=== PATIENT | female | born 1955 | race Caucasian/White ===

== ENCOUNTER → 2017-10-04 09:52 | Outpatient (CLI) | payer MEDICARE, SELFPAY | PROVIDERS: PCP Family Medicine; Visit Provider Family Medicine | DX: R00.0 Tachycardia, unspecified (principal) | CPT/HCPCS: 93005 ==

== ENCOUNTER 2017-12-27 15:56 | Inpatient (IN) ==
--- NOTE | 2017-12-27 16:10 | Emergency Department Note ---
ED Disposition Clinical Impression: Cellulitis of left thigh, Abscess of left thigh Disposition: Admitted as Observation Condition on Discharge: Fair - Critical Care Critical Care Time: No Attestation: On , the high probability of a clinically significant, sudden or life threatening deterioration of the following system(s) required my full and direct attention, intervention and personal management. The time I documented below is in addition to time spent performing reported procedures but includes the following listed in this critical care notation. Medical Decision Making - Mark Inquiry Pt receiving controlled substance: No Vital Signs: 12/27/17 16:00 12/27/17 16:53 12/27/17 17:16 Temperature 98.3 F 100.2 F H Temperature Source Oral Oral Pulse Rate [Right Brachial] 83 78 79 Respiratory Rate 18 18 Blood Pressure [Right Arm] 136/85 119/61 132/79 Blood Pressure Mean [Right Arm] 102 80 96 Blood Pressure Source [Right Arm] Automatic Cuff Automatic Cuff Automatic Cuff Blood Pressure Position [Right Arm] Sitting Supine Sitting 02 Sat by Pulse Oximetry 99 99 100 Oxygen Delivery Method Room Air Room Air Room Air - Lab Data Lab Results 12/27/17 16:30: WBC 20.4 H*, RBC 4.04 L, Hgb 11.3 L, Hct 35.2 L, MCV 87.2, MCH 27.9, MCHC 32.0, RDW 14.7, Plt Count 306, MPV 7.5, Neut % (Auto) 79.5, Lymph % (Auto) 13.7, [place] % (Auto) 5.3, Eos % (Auto) 1.3, Baso % (Auto) 0.3, Neut # (Auto) 16.2 H, Lymph # (Auto) 2.8, [place] # (Auto) 1.1 H, Eos # (Auto) 0.3, Baso # (Auto) 0.1, Total Counted 100, Neutrophils % (Manual) 79 H, Lymphocytes % (Manual) 14, Monocytes % (Manual) 6, Eosinophils % (Manual) 1, Platelet Estimate Normal, RBC Morphology Normal 12/27/17 16:30: Sodium 129 L, Potassium 4.0, Chloride 91 L, Carbon Dioxide 29, Anion Gap 13.0, BUN 16, Creatinine 1.35 H, Estimated Creat Clear 35, Estimated GFR 40 L, Est GFR ( Amer) 48 L, Glucose 248 H, Calcium 9.2 12/27/17 16:30: Lactate 2.2 H Result diagrams: 12/27/17 16:30 12/27/17 16:30 Orders (Tests/Meds): ED MEDICATIONS Generic Name Dose Route Start Last Admin Trade Name Freq PRN Reason Stop Dose Admin Vancomycin HCl 2,000 mg/ 500 mls @ 250 mls/hr 12/27/17 19:45 Sodium Chloride IV 12/27/17 21:44 ONCE ONE Vancomycin HCl 1,500 mg/ 250 mls @ 125 mls/hr 12/28/17 08:00 Sodium Chloride IV 01/11/18 07:59 Q12H FARHAN Discontinued Medications Generic Name Dose Route Start Last Admin Trade Name Freq PRN Reason Stop Dose Admin Acetaminophen 650 mg 12/27/17 17:17 12/27/17 17:17 Acetaminophen 325mg Tab PO 12/27/17 17:18 650 mg ONCE ONE Administration Vancomycin HCl 1,500 mg/ 250 mls @ 125 mls/hr 12/27/17 17:30 Sodium Chloride IV 01/10/18 17:29 Q12H FARHAN Miscellaneous 1 each 12/27/17 16:30 12/27/17 19:37 Vancomycin Consult Request NOTAPPLIC 12/27/17 16:31 1 each CONSULT PHARMACY ONE Administration Vancomycin HCl 2,000 mg 12/27/17 17:25 Vancomycin 1000mg Vial IV 12/27/17 17:26 ONCE ONE Protocol ORDERS Category Date Time Status Blood Culture Stat Micro 12/27/17 16:30 Received - Physician Consults Physician Consulted: Diana Time: 16:25 Reason -: Admission Comment/Response: Agrees to admit the patient to the hospital. We discussed the patient's clinical information, including history, exam, laboratory and radiology results and ED course. Per hospital procedure, I will write temporary bridge inpatient orders on the patient. Specific orders requested by the a dmitting physician: Vancomycin, surgical consult Additional Consult: Angel Time: 16:25 Reason -: Surgical Eval/Care Comment/Response: He will contact the operating room team and call back to determine whether he will perform surgery tonight or tomorrow. Patient is on Xarelto. He prefers to do surgery at 730 tomorrow morning, with 1 dose of Xarelto held. Medical Decision Narrative: Reviewed previous record. Right labial abscess in October of last year. Cultures grew MRSA. General Adult HPI - General Stated complaint: Cyst in need of lancing Time Seen by Provider: 12/27/17 16:09 - History of Present Illness HPI narrative: 3-day history of infection proximal medial left thigh. High fevers last night with rigors and delirium. Treated with Tylenol. She was out of town and did not want to go to a hospital in [place], so waited until she arrived back home here. She is diabetic. Prior history of a right labial abscess a year ago treated at this hospital. Surgery by Dr. Gonzalez. Last ate yesterday. - Related Data Home Medications Medication Instructions Recorded Confirmed Carvedilol [Carvedilol 25mg Tab] 25 mg PO DAILY 12/27/17 12/27/17 Fluticasone/Salmeterol 50 - 250 mcg IH BID 12/27/17 12/27/17 [Fluticasone/Salmeterol 250/50mcg diskus] Levothyroxine Sodium 200 mcg PO DAILY 12/27/17 12/27/17 [Levothyroxine 200mcg (0.2mg) Tab] Lisinopril [Lisinopril 40mg Tablet] 40 mg PO DAILY 12/27/17 12/27/17 Metformin HCl 1,000 mg PO BID 12/27/17 12/27/17 Montelukast Sodium [Montelukast 10 mg PO HS 12/27/17 12/27/17 10mg Tab] Rivaroxaban [Xarelto 20mg Tablet] 20 mg PO DAILY 12/27/17 12/27/17 Rosuvastatin Calcium 10 mg PO DAILY 12/27/17 12/27/17 Sertraline HCl [Zoloft 50mg tablet] 50 mg PO DAILY 12/27/17 12/27/17 dilTIAZem HCl [Diltiazem 360mg 360 mg PO DAILY 12/27/17 12/27/17 24Hr ER Cap] hydroCHLOROthiazide [HCTZ 25mg 12.5 mg PO DAILY 12/27/17 12/27/17 tab] Allergies Allergy/AdvReac Type Severity Reaction Status Date / Time naproxen [From ALEVE] Allergy Intermediate S-SWELLS-OR Verified 12/27/17 16:12 AL/THROAT oxytetracycline Allergy Intermediate Verified 11/09/18 16:12 [From TERRAMYCIN] tetracycline [TETRACYCLINE] Allergy Intermediate NA-SEDATION Verified 12/27/17 16:12 [facility] History I have reviewed the patient's past medical history: Yes ROS Obtained: Yes Systems reviewed as appropriate & no additional complaints - Constitutional Constitutional: Reports chills, Reports fever(s) - Integumentary/Breasts Skin/Breast: Reports as per HPI Physical Exam - General General appearance: alert, in no apparent distress - Head Head exam: atraumatic, normocephalic - Eye Eye exam: Present: normal appearance, PERRL, EOMI - ENT ENT exam: Present: mucous membranes moist - Neck Neck exam: Present: normal inspection, trachea midline - Chest Chest inspection: Present: normal inspection, symmetric chest wall rise - Respiratory Respiratory exam: Present: normal lung sounds bilaterally. Absent: respiratory distress - Cardiovascular Cardiovascular exam: Present: regular rate, normal rhythm - Abdominal Exam Abdominal exam: Present: soft. Absent: distention - Expanded Lower Extremity Exam Left Comment: Large area of induration, erythema, tenderness, heat approximately the size of my hand proximal medial left thigh. Central area of fluctuance approximately 4- 5 cm length by 2 cm width. Very tender. No exfoliation or drainage. Distal neurovascular status intact. Cellulitis and abscess do not extend onto the labia. - Neurological Exam Neurological exam: Present: alert, oriented X3. Absent: motor sensory deficit - Psychiatric Psychiatric exam: Present: normal affect, normal mood - Skin Skin exam: Present: warm, dry
[2017-12-27 16:44] LABS: Basophils # 0.1 K/mm3 (0-0.2); Basophils % 0.3 % (0.1-2.0); Eosinophils # 0.3 K/mm3 (0.0-0.4); Eosinophils % 1.3 % (0.1-12.0); Hematocrit 35.2 % (37.0-47.0); Hemoglobin 11.3 g/dL (12.2-16.2); Lymphocytes # 2.8 K/mm3 (0.7-4.5); Lymphocytes % 13.7 % (10-50); Mean Corpuscular Hemoglobin 27.9 pg (27.0-31.2); Mean Corpuscular Volume 87.2 fl (81-99); Mean Platelet Volume 7.5 fl (7.4-10.4); Monocytes # 1.1 K/mm3 (0.1-1.0); Monocytes % 5.3 % (1.7-9.3); Neutrophils # 16.2 K/mm3 (1.8-7.8); Neutrophils % 79.5 % (37.0-80.0); Platelet Count 306 K/mm3 (142-424); Red Blood Count 4.04 M/mm3 (4.20-5.40); Red Cell Distribution Width 14.7 % (11.5-17.5); White Blood Count 20.4 K/mm3 (4.8-10.8)
[2017-12-27 16:55] LABS: Calcium 9.2 mg/dL (8.5-10.1)
[2017-12-27 17:59] LABS: Eosinophils % 1 % (0-3); Lymphocytes % 14 % (10-50); Monocytes % 6 % (2-9); Neutrophils % 79 % (42-76); RBC Morphology Normal; Total Cells Counted 100
--- NOTE | 2017-12-27 18:00 | Progress Note ---
Internal Medicine - PN: Subj *Date: 12/27/17 *Time: 17:52 Interval history: Patient with presented to [facility] ER today with a 2 day h/o left proximal leg swelling and tenderness. She states this is similar to a previous episode she had one year ago when she had an MRSA abscess that required surgical I&D. Exam Vital signs and Labs for Last 24 Hours: Temp Pulse Resp BP Pulse Ox 100.2 F H 79 18 132/79 100 12/27/17 17:16 12/27/17 17:16 12/27/17 17:16 12/27/17 17:16 12/27/17 17:16 Laboratory Results - last 24 hr 12/27/17 16:30: WBC 20.4 H*, RBC 4.04 L, Hgb 11.3 L, Hct 35.2 L, MCV 87.2, MCH 27.9, MCHC 32.0, RDW 14.7, Plt Count 306, MPV 7.5, Neut % (Auto) 79.5, Lymph % (Auto) 13.7, [place] % (Auto) 5.3, Eos % (Auto) 1.3, Baso % (Auto) 0.3, Neut # (Auto) 16.2 H, Lymph # (Auto) 2.8, [place] # (Auto) 1.1 H, Eos # (Auto) 0.3, Baso # (Auto) 0.1 12/27/17 16:30: Sodium 129 L, Potassium 4.0, Chloride 91 L, Carbon Dioxide 29, Anion Gap 13.0, BUN 16, Creatinine 1.35 H, Estimated Creat Clear 35, Estimated GFR 40 L, Est GFR ( Amer) 48 L, Glucose 248 H, Calcium 9.2 12/27/17 16:30: Lactate 2.2 H I & O for Last 24 hours: Intake & Output 12/25/17 12/26/17 12/27/17 12/28/17 11:59 11:59 11:59 11:59 Weight 230 lb - Constitutional no acute distress (conversant) - *Routine HEENT Exam Head: Present: normocephalic Eye: Present: EOMI, PERRL ENT: Present: mucous membranes moist - *Routine Skin Exam Comments: Fairly large, erythematous, indurated area of skin on the left proximal thigh wi th some central fluctuance Assessment and Plan (1) Abscess of left thigh Current visit: Yes Status: Acute Category: Medical Code(s): L02.416 - Cutaneous abscess of left lower limb (2) Cellulitis of left thigh Current visit: Yes Status: Acute Category: Medical Code(s): L03.116 - Cellulitis of left lower limb (3) Personal history of MRSA (methicillin resistant Staphylococcus aureus) Current visit: Yes Status: Acute Category: Medical Code(s): Z86.14 - Personal history of Methicillin resistant Staphylococcus aureus infection (4) DM2 (diabetes mellitus, type 2) Current visit: Yes Status: Acute Category: Medical Code(s): E11.9 - Type 2 diabetes mellitus without complications (5) HTN (hypertension) Current visit: Yes Status: Acute Category: Medical Code(s): I10 - Essenti al (primary) hypertension (6) Hyperlipidemia Current visit: Yes Status: Acute Category: Medical Code(s): E78.5 - Hyperlipidemia, unspecified (7) Hypothyroid Current visit: Yes Status: Acute Category: Medical Code(s): E03.9 - Hypothyroidism, unspecified (8) Depression Current visit: Yes Status: Acute Category: Medical Code(s): F32.9 - Major depressive disorder, single episode, unspecified (9) COPD (chronic obstructive pulmonary disease) Current visit: Yes Status: Acute Category: Medical Code(s): J44.9 - Chronic obstructive pulmonary disease, unspecified (10) Atrial fibrillation Current visit: Yes Status: Acute Category: Medical Code(s): I48.91 - Unspecified atrial fibrillation (11) CHF (congestive heart failure) Current visit: Yes Status: Acute Category: Medical Code(s): I50.9 - Heart failure, unspecified (12) Allergic rhinitis Current visit: Yes Status: Acute Category: Medical Code(s): J30.9 - Allergic rhinitis, unspecified (13) Morbid obesity Current visit: Yes Status: Acute Category: Medical Code(s): E66.01 - Morbid (severe) obesity due to excess calories (14) BMI 40.0-44.9, adult Current visit: Yes Status: Acute Category: Medical Code(s): Z68.41 - Body mass index (BMI) 40.0-44.9, adult (15) Leucocytosis Current visit: Yes Status: Acute Category: Medical Code(s): D72.829 - Elevated white blood cell count, unspecified - Assessment and plan all Dx Assessment and Plan for all problems:: General surgery consulted while patient was in the ER. IV Vancomycin ordered, plan I&D in the AM, hold Xarelto.
--- NOTE | 2017-12-27 19:19 | History & Physical Report ---
*Admission Date: 12/27/17 <Latosha Huynh 12/27/17 19:36> *Chief complaint: Left upper leg pain and redness <Latosha Huynh 12/27/17 19:36> *History of present illness: Ms. Dunn is a 62yo female who presented to [facility] ER today with a 3 day hx of redness, swelling, and tenderness in the proximal leg. She states this area started as a small red spot and got progressively worse. She developed fever, chills, and nausea yesterday. She states this is similar to a previous episode she had one year ago when she had an MRSA abscess that required surgical I&D. She was admitted for IV abx and a surgical consult. <Latosha Huynh 12/27/17 19:36> [facility] History Medical History: Reports:: Asthma, Atrial Fibrillation, Congestive Heart Failure, Chronic Obstructive Pulmonary Disease (COPD), Depression, Diabetes Caitlyn itus Type 2, Hyperlipidemia, Hypertension, MRSA Denies:: Cancer, Diabetes Mellitus Type 1 <Latosha Huynh 12/27/17 19:36> Other Medical History: Reports: Arthritis, Hypothyroidism <Latosha Huynh 12/27/17 19:36> Comment: IBS <Latosha Huynh 12/27/17 19:36> Other Surgeries: Yes: Cardiac Catheterization, Cholecystectomy, Tubal Ligation <Latosha Huynh 12/27/17 19:36> Amputation: No <Latosha Huynh 12/27/17 19:36> Fractures: No <Latosha Huynh 12/27/17 19:36> Comment: right ovarian cyst removed <Latosha Huynh 12/27/17 19:36> - *Social History Educational Level: Attended College <Latosha Huynh 12/27/17 19:36> Alcohol Intake: never <Latosha Huynh 12/27/17 19:36> Occupational Status: retired, disabled <Latosha Huynh 12/27/17 19:36> Housing: house <Latosha Huynh 12/27/17 19:36> Household Members: family <Latosha Huynh 12/27/17 19:36> - Psychiatric History Expresses thoughts of harming self/others: None <Latosha Huynh 12/27/17 19:36> Suicide Plan Description: No Plan <Latosha Huynh 12/27/17 19:36> *Family Hx:: Cancer, Coronary Artery Disease, Diabetes, Hypertension, Stroke <Latosha Huynh 12/27/17 19:36> Review of Systems - Constitutional Reports fever(s), Reports malaise, Reports weakness <Latosha Huynh 12/27/17 19:36> - Eyes Denies blurry vision, Denies double vision <Latosha Huynh 12/27/17 19:36> - ENT Reports nasal congestion, Reports sore throat <Latosha Huynh 12/27/17 19:36> - *Cardiovascular Denies chest pain, Denies rapid, pounding, or irregular heartbeat <Latosha Huynh 12/27/17 19:36> - *Respiratory Reports cough, Reports shortness of breath <Latosha Huynh 12/27/17 19:36> - *Gastrointestinal Reports loose stools, Reports nausea, Reports vomiting, Denies abdominal pain <Latosha Huynh 12/27/17 19:36> - *Genitourinary Denies difficulty urinating, Denies painful urination <Latosha Huynh 12/27/17 19:36> - *Musculoskeletal Reports joint pain (left leg), Denies back pain <Latosha Huynh 12/27/17 19:36> - *Neurologic Reports headache(s), Reports dizziness, Reports weakness <Latosha Huynh 12/27/17 19:36> Meds Home Medications Medication Instructions Recorded Confirmed Type Carvedilol [Carvedilol 25mg Tab] 25 mg PO BID 12/27/17 12/28/17 History Fluticasone/Salmeterol 50 - 250 mcg IH BID 12/27/17 12/27/17 History [Fluticasone/Salmeterol 250/50mcg diskus] Levothyroxine Sodium 200 mcg PO DAILY 12/27/17 12/27/17 History [Levothyroxine 200mcg (0.2mg) Tab] Lisinopril [Lisinopril 40mg Tablet] 40 mg PO DAILY 12/27/17 12/27/17 History Metformin HCl 1,000 mg PO BID 12/27/17 12/27/17 History Montelukast Sodium [Montelukast 10 mg PO HS 12/27/17 12/27/17 History 10mg Tab] Rivaroxaban [Xarelto 20mg Tablet] 20 mg PO DAILY 12/27/17 12/27/17 History Rosuvastatin Calcium 10 mg PO DAILY 12/27/17 12/27/17 History Sertraline HCl [Zoloft 50mg tablet] 50 mg PO DAILY 12/27/17 12/27/17 History dilTIAZem HCl [Diltiazem 360mg 360 mg PO DAILY 12/27/17 12/27/17 History 24Hr ER Cap] hydroCHLOROthiazide [HCTZ 25mg 12.5 mg PO DAILY 12/27/17 12/27/17 History tab] <Marciano Ortiz - 12/28/17 12:18> Allergies Allergy/AdvReac Type Severity Reaction Status Date / Time naproxen [From ALEVE] Allergy Intermediate S-SWELLS-OR Verified 12/27/17 16:12 AL/THROAT oxytetracycline Allergy Intermediate Verified 12/27/17 16:12 [From TERRAMYCIN] tetracycline [TETRACYCLINE] Allergy Intermediate NA-SEDATION Verified 12/27/17 16:12 <Marciano Ortiz - 12/28/17 12:18> Exam Vital signs and Labs for Last 24 Hours: Temp Pulse Resp BP Pulse Ox 98.9 F 90 18 100/57 L 92 L 12/28/17 12:09 12/28/17 12:09 12/28/17 12:09 12/28/17 12:09 12/28/17 12:09 Laboratory Results - last 24 hr 12/27/17 16:30: WBC 20.4 H*, RBC 4.04 L, Hgb 11.3 L, Hct 35.2 L, MCV 87.2, MCH 27.9, MCHC 32.0, RDW 14.7, Plt Count 306, MPV 7.5, Neut % (Auto) 79.5, Lymph % (Auto) 13.7, [place] % (Auto) 5.3, Eos % (Auto) 1.3, Baso % (Auto) 0.3, Neut # (Auto) 16.2 H, Lymph # (Auto) 2.8, [place] # (Auto) 1.1 H, Eos # (Auto) 0.3, Baso # (Auto) 0.1, Total Counted 100, Neutrophils % (Manual) 79 H, Lymphocytes % (Manual) 14, Monocytes % (Manual) 6, Eosinophils % (Manual) 1, Platelet Estimate Normal, RBC Morphology Normal 12/27/17 16:30: Sodium 129 L, Potassium 4.0, Chloride 91 L, Carbon Dioxide 29, Anion Gap 13.0, BUN 16, Creatinine 1.35 H, Estimated Creat Clear 35, Estimated GFR 40 L, Est GFR ( Amer) 48 L, Glucose 248 H, Calcium 9.2 12/27/17 16:30: Lactate 2.2 H 12/27/17 20:40: Lactate 1.3 12/27/17 22:07: POC Glucose 237 H 12/28/17 02:30: POC Glucose 272 H 12/28/17 07:00: Sodium 129 L, Potassium 3.5, Chloride 93 L, Carbon Dioxide 27, Anion Gap 12.5, BUN 14, Creatinine 1.14 H, Estimated Creat Clear 41, Estimated GFR 48 L, Est GFR ( Amer) 59 D, Glucose 253 H, Calcium 8.2 L D 12/28/17 08:00: POC Glucose 268 H 12/28/17 10:58: POC Glucose 378 H* <Marciano Ortiz - 12/28/17 12:18> Temp Pulse Resp BP Pulse Ox 100.0 F H 80 18 107/36 L 99 12/27/17 18:54 12/27/17 18:54 12/27/17 18:54 12/27/17 18:54 12/27/17 18:54 Laboratory Results - last 24 hr 12/27/17 16:30: WBC 20.4 H*, RBC 4.04 L, Hgb 11.3 L, Hct 35.2 L, MCV 87.2, MCH 27.9, MCHC 32.0, RDW 14.7, Plt Count 306, MPV 7.5, Neut % (Auto) 79.5, Lymph % (Auto) 13.7, [place] % (Auto) 5.3, Eos % (Auto) 1.3, Baso % (Auto) 0.3, Neut # (Auto) 16.2 H, Lymph # (Auto) 2.8, [place] # (Auto) 1.1 H, Eos # (Auto) 0.3, Baso # (Auto) 0.1, Total Counted 100, Neutrophils % (Manual) 79 H, Lymphocytes % (Manual) 14, Monocytes % (Manual) 6, Eosinophils % (Manual) 1, Platelet Estimate Normal, RBC Morphology Normal 12/27/17 16:30: Sodium 129 L, Potassium 4.0, Chloride 91 L, Carbon Dioxide 29, Anion Gap 13.0, BUN 16, Creatinine 1.35 H, Estimated Creat Clear 35, Estimated GFR 40 L, Est GFR ( Amer) 48 L, Glucose 248 H, Calcium 9.2 12/27/17 16:30: Lactate 2.2 H <Latosha Huynh - 12/27/17 19:36> I & O for Last 24 hours: Intake & Output 12/26/17 12/27/17 12/28/17 12/29/17 11:59 11:59 11:59 11:59 Intake Total 200 / 200 Balance 200 / 200 Weight 237 lb 6 oz <Tabor,Marciano - 12/28/17 12:18> Intake & Output 12/25/17 12/26/17 12/27/17 12/28/17 11:59 11:59 11:59 11:59 Weight 230 lb <Latosha Huynh - 12/27/17 19:36> - Constitutional no acute distress <Latosha Huynh 12/27/17 19:36> - *Routine HEENT Exam Head: Present: normocephalic <Latosha Huynh 12/27/17 19:36> Eye: Present: EOMI, PERRL <Latosha Huynh 12/27/17 19:36> ENT: Present: mucous membranes moist <Latosha Huynh - 12/27/17 19:36> - *Routine Neck Exam Present: supple. Absent: lymphadenopathy <Latosha Huynh 12/27/17 19:36> - *Routine Respiratory Exam Present: CTA bilaterally <Latosha Huynh 12/27/17 19:36> - *Routine Cardiovascular Exam Present: RRR <Latosha Huynh 12/27/17 19:36> - *Routine Abdominal Exam Present: soft, normoactive bowel sounds. Absent: tenderness <Latosha Huynh 12/27/17 19:36> - *Routine Extremities Exam Present: edema (LLE) <Latosha Huynh - 12/27/17 19:36> - *Routine Skin Exam Comments: Fairly large, erythematous, indurated area of skin on the left proximal thigh with some central fluctuance <Latosha Huynh - 12/27/17 19:36> - *Routine Neurological Exam Present: alert, oriented X3 <Latosha Huynh - 12/27/17 19:36> Assessment and Plan (1) Abscess of left thigh Current visit: Yes Status: Acute Category: Medical Code(s): L02.416 - C utaneous abscess of left lower limb (2) Cellulitis of left thigh Current visit: Yes Status: Acute Category: Medical Code(s): L03.116 - Cellulitis of left lower limb (3) Personal history of MRSA (methicillin resistant Staphylococcus aureus) Current visit: Yes Status: Acute Category: Medical Code(s): Z86.14 - Personal history of Methicillin resistant Staphylococcus aureus infection (4) DM2 (diabetes mellitus, type 2) Current visit: Yes Status: Acute Category: Medical Code(s): E11.9 - Type 2 diabetes mellitus without complications (5) HTN (hypertension) Current visit: Yes Status: Acute Category: Medical Code(s): I10 - Essential (primary) hypertension (6) Hyperlipidemia Current visit: Yes Status: Acute Category: Medical Code(s): E78.5 - Hyperlipidemia, unspecified (7) Hypothyroid Current visit: Yes Status: Acute Category: Medical Code(s): E03.9 - Hypothyroidism, unspecified (8) Depression Current visit: Yes Status: Acute Category: Medical Code(s): F32.9 - Major depressive disorder, single episode, unspecified (9) COPD (chronic obstructive pulmonary disease) Current visit: Yes Status: Acute Category: Medical Code(s): J44.9 - Chronic obstructive pulmonary disease, unspecified (10) Atrial fibrillation Current visit: Yes Status: Acute Category: Medical Code(s): I48.91 - Unspecified atrial fibrillation (11) CHF (congestive heart failure) Current visit: Yes Status: Acute Category: Medical Code(s): I50.9 - Heart failure, unspecified (12) Allergic rhinitis Current visit: Yes Status: Acute Category: Medical Code(s): J30.9 - Allergic rhinitis, unspecified (13) Morbid obesity Current visit: Yes Status: Acute Category: Medical Code(s): E66.01 - Morbid (severe) obesity due to excess calories (14) BMI 40.0-44.9, adult Current visit: Yes Status: Acute Category: Medical Code(s): Z68.41 - Body mass index (BMI) 40.0-44.9, adult (15) Leucocytosis Current visit: Yes Status: Acute Category: Medical Code(s): D72.829 - Elevated white blood cell count, unspecified <Marciano Ortiz - 12/28/17 12:18> (1) Abscess of left thigh Current visit: Yes Status: Acute Category: Medical Code(s): L02.416 - Cutaneous abscess of left lower limb (2) Cellulitis of left thigh Current visit: Yes Status: Acute Category: Medical Code(s): L03.116 - Cellulitis of left lower limb (3) Personal history of MRSA (methicillin resistant Staphylococcus aureus) Current visit: Yes Status: Acute Category: Medical Code(s): Z86.14 - Personal history of Methicillin resistant Staphylococcus aureus infection (4) DM2 (diabetes mellitus, type 2) Current visit: Yes Status: Acute Category: Medical Code(s): E11.9 - Type 2 diabetes mellitus without complications (5) HTN (hypertension) Current visit: Yes Status: Acute Category: Medical Code(s): I10 - Essential (primary) hypertension (6) Hyperlipidemia Current visit: Yes Status: Acute Category: Medical Code(s): E78.5 - Hyperlipidemia, unspecified (7) Hypothyroid Current visit: Yes Status: Acute Category: Medical Code(s): E03.9 - Hypothyroidism, unspecified (8) Depression Current visit: Yes Status: Acute Category: Medical Code(s): F32.9 - Major depressive disorder, single episode, unspecified (9) COPD (chronic obstructive pulmonary disease) Current visit: Yes Status: Acute Category: Medical Code(s): J44.9 - Chronic obstructive pulmonary disease, unspecified (10) Atrial fibrillation Current visit: Yes Status: Acute Category: Medical Code(s): I48.91 - Unspecified atrial fibrillation (11) CHF (congestive heart failure) Current visit: Yes Status: Acute Category: Medical Code(s): I50.9 - Heart failure, unspecified (12) Allergic rhinitis Current visit: Yes Status: Acute Category: Medical Code(s): J30.9 - Allergic rhinitis, unspecified (13) Morbid obesity Current visit: Yes Status: Acute Category: Medical Code(s): E66.01 - Morbid (severe) obesity due to excess calories (14) BMI 40.0-44.9, adult Current visit: Yes Status: Acute Category: Medical Code(s): Z68.41 - Body mass index (BMI) 40.0-44.9, adult (15) Leucocytosis Current visit: Yes Status: Acute Category: Medical Code(s): D72.829 - Elevated white blood cell count, unspecified <Latosha Huynh - 12/27/17 19:16> - Assessment and plan all Dx Assessment and Plan for all problems:: Saw patient, agree with above note. <Marciano Ortiz - 12/28/17 12:18> Will continue abx. Patient has been seen by Dr. Ortiz and will be taken to the OR tomorrow am for I&D. Will hold xarelto. <Latosha Huynh - 12/27/17 19:36>
--- NOTE | 2017-12-28 06:41 | Consult Report ---
*Admission Date: 12/27/17 *Chief complaint: Abscess *History of present illness: This is a 62-year-old female seen in consultation from the service of Dr. Ortiz for evaluation of left medial thigh abscess. She presented to the emergency department yesterday evening with a 3-day history of increased pain/ swelling and erythema along the left medial/proximal thigh. She had a similar episode in a different location 1 year ago and was diagnosed with MRSA abscess requiring surgical intervention. Review of Systems - Constitutional Reports anorexia, Denies body ache(s) - Eyes Denies change in vision - *Cardiovascular Denies chest pain - *Respiratory Denies cough - *Gastrointestinal Denies abdominal pain - *Neurologic Reports headache(s), Reports dizziness, Reports weakness [facility] History Medical History: Reports:: Asthma, Atrial Fibrillation, Congestive Heart Failure, Chronic Obstructive Pulmonary Disease (COPD), Depression, Diabetes Mellitus Type 2, Hyperlipidemia, Hypertension, MRSA Denies:: Cancer, Diabetes Mellitus Type 1 Other Medical History: Reports: Arthritis, Hypothyroidism Other Surgeries: Yes: Cardiac Catheterization, Cholecystectomy, Tubal Ligation Amputation: No Fractures: No - *Social History Educational Level: Attended College Alcohol Intake: never Occupational Status: retired, disabled Housing: house Household Members: family - Psychiatric History Expresses thoughts of harming self/others: None Suicide Plan Description: No Plan Pschychiatric History:: Reports:: Depression *Family Hx:: Cancer, Coronary Artery Disease, Diabetes, Hypertension, Stroke Meds Home Medications Medication Instructions Recorded Confirmed Type Carvedilol [Carvedilol 25mg Tab] 25 mg PO DAILY 12/27/17 12/27/17 History Fluticasone/Salmeterol 50 - 250 mcg IH BID 12/27/17 12/27/17 History [Fluticasone/Salmeterol 250/50mcg diskus] Levothyroxine Sodium 200 mcg PO DAILY 12/27/17 12/27/17 History [Levothyroxine 200mcg (0.2mg) Tab] Lisinopril [Lisinopril 40mg Tablet] 40 mg PO DAILY 12/27/17 12/27/17 History Metformin HCl 1,000 mg PO BID 12/27/17 12/27/17 History Montelukast Sodium [Montelukast 10 mg PO HS 12/27/17 12/27/17 History 10mg Tab] Rivaroxaban [Xarelto 20mg Tablet] 20 mg PO DAILY 12/27/17 12/27/17 History Rosuvastatin Calcium 10 mg PO DAILY 12/27/17 12/27/17 History Sertraline HCl [Zoloft 50mg tablet] 50 mg PO DAILY 12/27/17 12/27/17 History dilTIAZem HCl [Diltiazem 360mg 360 mg PO DAILY 12/27/17 12/27/17 History 24Hr ER Cap] hydroCHLOROthiazide [HCTZ 25mg 12.5 mg PO DAILY 12/27/17 12/27/17 History tab] Allergies Allergy/AdvReac Type Severity Reaction Status Date / Time naproxen [From ALEVE] Allergy Intermediate S-SWELLS-OR Verified 12/27/17 16:12 AL/THROAT oxytetracycline Allergy Intermediate Verified 12/27/17 16:12 [From TERRAMYCIN] tetracycline [TETRACYCLINE] Allergy Intermediate NA-SEDATION Verified 12/27/17 16:12 Exam Vital signs and Labs for Last 24 Hours: Temp Pulse Resp BP Pulse Ox 98.1 F 75 18 97/55 L 98 12/28/17 04:11 12/28/17 04:11 12/28/17 04:11 12/28/17 04:11 12/28/17 04:11 Laboratory Results - last 24 hr 12/27/17 16:30: WBC 20.4 H*, RBC 4.04 L, Hgb 11.3 L, Hct 35.2 L, MCV 87.2, MCH 27.9, MCHC 32.0, RDW 14.7, Plt Count 306, MPV 7.5, Neut % (Auto) 79.5, Lymph % (Auto) 13.7, Mora % (Auto) 5.3, Eos % (Auto) 1.3, Baso % (Auto) 0.3, Neut # ( Auto) 16.2 H, Lymph # (Auto) 2.8, Mora # (Auto) 1.1 H, Eos # (Auto) 0.3, Baso # (Auto) 0.1, Total Counted 100, Neutrophils % (Manual) 79 H, Lymphocytes % (Manual) 14, Monocytes % (Manual) 6, Eosinophils % (Manual) 1, Platelet Estimate Normal, RBC Morphology Normal 12/27/17 16:30: Sodium 129 L, Potassium 4.0, Chloride 91 L, Carbon Dioxide 29, Anion Gap 13.0, BUN 16, Creatinine 1.35 H, Estimated Creat Clear 35, Estimated GFR 40 L, Est GFR ( Amer) 48 L, Glucose 248 H, Calcium 9.2 12/27/17 16:30: Lactate 2.2 H 12/27/17 20:40: Lactate 1.3 12/27/17 22:07: POC Glucose 237 H 12/28/17 02:30: POC Glucose 272 H I & O for Last 24 hours: Intake & Output 12/25/17 12/26/17 12/27/17 12/28/17 11:59 11:59 11:59 11:59 Weight 237 lb 6 oz - Constitutional no acute distress - *Routine Respiratory Exam Absent: respiratory distress - *Routine Cardiovascular Exam Present: irregular rhythm - *Routine Skin Exam Comments: Proximal left medial thigh erythema and swelling with some central fluctuance. Results - Labs 12/27/17 16:30 12/27/17 16:30 Laboratory Results - last 24 hr 12/27/17 16:30: WBC 20.4 H*, RBC 4.04 L, Hgb 11.3 L, Hct 35.2 L, MCV 87.2, MCH 27.9, MCHC 32.0, RDW 14.7, Plt Count 306, MPV 7.5, Neut % (Auto) 79.5, Lymph % (Auto) 13.7, Mora % (Auto) 5.3, Eos % (Auto) 1.3, Baso % (Auto) 0.3, Neut # (Auto) 16.2 H, Lymph # (Auto) 2.8, Mora # (Auto) 1.1 H, Eos # (Auto) 0.3, Baso # (Auto) 0.1, Total Counted 100, Neutrophils % (Manual) 79 H, Lymphocytes % (Manual) 14, Monocytes % (Manual) 6, Eosinophils % (Manual) 1, Platelet Estimate Normal, RBC Morphology Normal 12/27/17 16:30: Sodium 129 L, Potassium 4.0, Chloride 91 L, Carbon Dioxide 29, Anion Gap 13.0, BUN 16, Creatinine 1.35 H, Estimated Creat Clear 35, Estimated GFR 40 L, Est GFR ( Amer) 48 L, Glucose 248 H, Calcium 9.2 12/27/17 16:30: Lactate 2.2 H 12/27/17 20:40: Lactate 1.3 12/27/17 22:07: POC Glucose 237 H 12/28/17 02:30: POC Glucose 272 H Assessment and Plan (1) Abscess of left thigh Current visit: Yes Status: Acute Category: Medical Code(s): L02.416 - Cutaneous abscess of left lower limb The patient is being scheduled for incision and drainage this morning. She will continue antibiotics. I have discussed the risks and benefits including, but not limited to: Bleeding Infection Damage to surrounding tissue Inherent risks of sedation The patient agrees to proceed. (2) Cellulitis of left thigh Current visit: Yes Status: Acute Category: Medical Code(s): L03.116 - Cellulitis of left lower limb (3) Personal history of MRSA (methicillin resistant Staphylococcus aureus) Current visit: Yes Status: Acute Category: Medical Code(s): Z86.14 - Personal history of Methicillin resistant Staphylococcus aureus infection (4) DM2 (diabetes mellitus, type 2) Current visit: Yes Status: Acute Category: Medical Code(s): E11.9 - Type 2 diabetes mellitus without complications (5) HTN (hypertension) Current visit: Yes Status: Acute Category: Medical Code(s): I10 - Essential (primary) hypertension (6) Hyperlipidemia Current visit: Yes Status: Acute Category: Medical Code(s): E78.5 - Hyperlipidemia, unspecified (7) Hypothyroid Current visit: Yes Status: Acute Category: Medical Code(s): E03.9 - Hypothyroidism, unspecified (8) Depression Current visit: Yes Status: Acute Category: Medical Code(s): F32.9 - Major depressive disorder, single episode, unspecified (9) COPD (chronic obstructive pulmonary disease) Current visit: Yes Status: Acute Category: Medical Code(s): J44.9 - Chronic obstructive pulmonary disease, unspecified (10) Atrial fibrillation Current visit: Yes Status: Acute Category: Medical Code(s): I48.91 - Unspecified atrial fibrillation (11) CHF (congestive heart failure) Current visit: Yes Status: Acute Category: Medical Code(s): I50.9 - Heart failure, unspecified (12) Allergic rhinitis Current visit: Yes Status: Acute Category: Medical Code(s): J30.9 - Allergic rhinitis, unspecified (13) Morbid obesity Current visit: Yes Status: Acute Category: Medical Code(s): E66.01 - Morbid (severe) obesity due to excess calories (14) BMI 40.0-44.9, adult Current visit: Yes Status: Acute Category: Medical Code(s): Z68.41 - Body mass index (BMI) 40.0-44.9, adult (15) Leucocytosis Current visit: Yes Status: Acute Category: Medical Code(s): D72.829 - Elevated white blood cell count, unspecified
--- NOTE | 2017-12-28 07:23 | Progress Note ---
[facility] Anesthesia Checklist - Patient Identification Patient Identification: Arm Band, Verbal (Name & ) - Structural Data Admitted From: Inpatient Planned Operative Procedure/s: Left Thich I&D Consent for Planned Operative Procedure(s) Verified: Yes Verified Documents: Surgical Consent, History and Physical - NPO Status Verified Time NPO: 00:00 - Chart Verification Results Verified: CBC, BMP - Additional verifications Patient : No Anesthesia Reactions: No - Airway Assessment C-Spine Mobility Assessed: Yes TMJ Mobility Assessed: Yes Dentition: Edentulous (Wears upper and lower dentures) - Neurological Assessment Level of Consciousness: Awake Hx Seizures: No Numbness or tingling in extremities: No - Anesthesia Plan Anesthesia Risk discussed: Yes Anesthesia Plan: Verified ASA Class: III (Emergent) Anesthesia Type: General [facility] History I have reviewed the patient's past medical history: Yes Medical History: Reports:: Asthma, Atrial Fibrillation, Congestive Heart Failure, Chronic Obstructive Pulmonary Disease (COPD), Depression, Diabetes Mellitus Type 2, Hyperlipidemia, Hypertension, MRSA Denies:: Cancer, Diabetes Mellitus Type 1 Other Medical History: Reports: Arthritis, Hypothyroidism Other Surgeries: Yes: Cardiac Catheterization, Cholecystectomy, Tubal Ligation Amputation: No Fractures: No - *Social History Educational Level: Attended College Alcohol Intake: never Occupational Status: retired, disabled Housing: house Household Members: family - Psychiatric History Expresses thoughts of harming self/others: None Suicide Plan Description: No Plan Pschychiatric History:: Reports:: Depression *Family Hx:: Cancer, Coronary Artery Disease, Diabetes, Hypertension, Stroke
[2017-12-28 07:30] LABS: Anion Gap 12.5 mEq/L (5-15); Potassium 3.5 mmoL/L (3.5-5.1)
[2017-12-28 07:43] LABS: Calcium 8.2 mg/dL (8.5-10.1)
--- NOTE | 2017-12-28 08:01 | Progress Note ---
[facility] Anesthesia Record Part II Discharge Time: 08:27 Destination: Medical Surgical Department PACU nurse assessment reviewed?: Yes Patient Condition:: Good Anesthesia Complications:: None
--- NOTE | 2017-12-28 08:01 | Progress Note ---
[facility] Anesthesia Record Part I Intake, IV Amount: 200 Estimated blood loss (mL): 5 Urine output (mL): 0 Blood Products used (#): none Blood Pressure: 99/61 SaO2: 94 Pulse Rate: 102 (Afib) Respiratory Rate: 17 Temperature: 97.3 F Patient is:: Awake, Stable Stable to PACU at:: 07:57
--- NOTE | 2017-12-28 08:03 | Operative Note ---
Date of procedure: 12/28/17 Pre-op Diagnosis:: Left medial/proximal thigh abscess Post-op Diagnosis:: Same Procedure performed:: Incision and drainage of left medial/proximal thigh abscess Surgeon:: Beau Ortiz MD Anesthesia: LMA Estimated blood loss (mL): 10 Operative findings:: Complex pocket of purulence with moderate surrounding cellulitic change/induration Operative note:: After informed consent was obtained the patient was taken to the operating room and placed in the supine position. General anesthesia with laryngeal mask airway was achieved. The patient's left proximal medial thigh was prepped and draped in a sterile fashion. The central portion (area of fluctuance) was opened in an elliptical fashion utilizing electrocautery. Fluid was obtained for Gram stain and culture as complex pockets of purulence were encountered. The entire area was evacuated and carefully opened. The remaining pocket was packed with moistened Kerlix that was infiltrated with 1% lidocaine. Dressings were applied. The patient's anesthetic agents were reversed and her laryngeal mask airway was removed prior to transfer to recovery. Condition: stable Disposition: PACU Specimens:: Fluid for Gram stain/culture Complications:: No immediate
--- NOTE | 2017-12-28 09:25 | Progress Note ---
Internal Medicine - PN: Subj *Date: 12/28/17 *Time: 09:23 Interval history: Patient just returned to her room after surgery. She is still a little drowsy but awakens to voice and would like something to eat. Exam Vital signs and Labs for Last 24 Hours: Temp Pulse Resp BP Pulse Ox 98.2 F 72 17 91/62 L 93 L 12/28/17 09:00 12/28/17 09:00 12/28/17 09:00 12/28/17 09:00 12/28/17 09:00 Laboratory Results - last 24 hr 12/27/17 16:30: WBC 20.4 H*, RBC 4.04 L, Hgb 11.3 L, Hct 35.2 L, MCV 87.2, MCH 27.9, MCHC 32.0, RDW 14.7, Plt Count 306, MPV 7.5, Neut % (Auto) 79.5, Lymph % (Auto) 13.7, Fajardo % (Auto) 5.3, Eos % (Auto) 1.3, Baso % (Auto) 0.3, Neut # (Auto) 16.2 H, Lymph # (Auto) 2.8, Fajardo # (Auto) 1.1 H, Eos # (Auto) 0.3, Baso # (Auto) 0.1, Total Counted 100, Neutrophils % (Manual) 79 H, Lymphocytes % (Manual) 14, Monocytes % (Manual) 6, Eosinophils % (Manual) 1, Platelet Estimate Normal, RBC Morphology Normal 12/27/17 16:30: Sodium 129 L, Potassium 4.0, Chloride 91 L, Carbon Dioxide 29, Anion Gap 13.0, BUN 16, Creatinine 1.35 H, Estimated Creat Clear 35, Estimated GFR 40 L, Est GFR ( Amer) 48 L, Glucose 248 H, Calcium 9.2 12/27/17 16:30: Lactate 2.2 H 12/27/17 20:40: Lactate 1.3 12/27/17 22:07: POC Glucose 237 H 12/28/17 02:30: POC Glucose 272 H 12/28/17 07:00: Sodium 129 L, Potassium 3.5, Chloride 93 L, Carbon Dioxide 27, Anion Gap 12.5, BUN 14, Creatinine 1.14 H, Estimated Creat Clear 41, Estimated GFR 48 L, Est GFR ( Amer) 59 D, Glucose 253 H, Calcium 8.2 L D 12/28/17 08:00: POC Glucose 268 H I & O for Last 24 hours: Intake & Output 12/25/17 12/26/17 12/27/17 12/28/17 11:59 11:59 11:59 11:59 Intake Total 200 / 200 Balance 200 / 200 Weight 237 lb 6 oz - Constitutional no acute distress - *Routine HEENT Exam Head: Present: normocephalic Eye: Present: EOMI, PERRL ENT: Present: mucous membranes moist - *Routine Neck Exam Present: supple. Absent: lymphadenopathy - *Routine Respiratory Exam Present: CTA bilaterally - *Routine Cardiovascular Exam Present: RRR - *Routine Abdominal Exam Present: soft, normoactive bowel sounds. Absent: tenderness - *Routine Extremities Exam Absent: cyanosis, clubbing, edema - *Routine Skin Exam Present: warm Comments: Surgical dressing C/D/I on left proximal thigh. - *Routine Neurological Exam Present: alert, oriented X3 Assessment and Plan (1) Abscess of left thigh Current visit: Yes Status: Acute Category: Medical Code(s): L02.416 - Cutaneous abscess of left lower limb (2) Cellulitis of left thigh Current visit: Yes Status: Acute Category: Medical Code(s): L03.116 - Cellulitis of left lower limb (3) Personal history of MRSA (methicillin resistant Staphylococcus aureus) Current visit: Yes Status: Acute Category: Medical Code(s): Z86.14 - Personal history of Methicillin resistant Staphylococcus aureus infection (4) DM2 (diabetes mellitus, type 2) Current visit: Yes Status: Acute Category: Medical Code(s): E11.9 - Type 2 diabetes mellitus without complications (5) HTN (hypertension) Current visit: Yes Status: Acute Category: Medical Code(s): I10 - Essential (primary) hypertension (6) Hyperlipidemia Current visit: Yes Status: Acute Category: Medical Code(s): E78.5 - Hyperlipidemia, unspecified (7) Hypothyroid Current visit: Yes Status: Acute Category: Medical Code(s): E03.9 - Hypothyroidism, unspecified (8) Depression Current visit: Yes Status: Acute Category: Medical Code(s): F32.9 - Major depressive disorder, single episode, unspecified (9) COPD (chronic obstructive pulmonary disease) Current visit: Yes Status: Acute Category: Medical Code(s): J44.9 - Chronic obstructive pulmonary disease, unspecified (10) Atrial fibrillation Current visit: Yes Status: Acute Category: Medical Code(s): I48.91 - Unspecified atrial fibrillation (11) CHF (congestive heart failure) Current visit: Yes Status: Acute Category: Medical Code(s): I50.9 - Heart failure, unspecified (12) Allergic rhinitis Current visit: Yes Status: Acute Category: Medical Code(s): J30.9 - Allergic rhinitis, unspecified (13) Morbid obesity Current visit: Yes Status: Acute Category: Medical Code(s): E66.01 - Morbid (severe) obesity due to excess calories (14) BMI 40.0-44.9, adult Current visit: Yes Status: Acute Category: Medical Code(s): Z68.41 - Body mass index (BMI) 40.0-44.9, adult (15) Leucocytosis Current visit: Yes Status: Acute Category: Medical Code(s): D72.829 - Elevated white blood cell count, unspecified - Assessment and plan all Dx Assessment and Plan for all problems:: POD #0, s/p I&D of left thigh skin abscess, continue IV Vancomycin and await cultures.
--- NOTE | 2017-12-28 13:57 | Pharmacy Consult Notes ---
- Pharmacy Consult Date: 12/28/17 Time: 13:55 Referring provider: DR. KHALIL Reason for Consult:: VANCOMYCIN DOSING Allergies and ADEs:: Allergies Allergy/AdvReac Type Severity Reaction Status Date / Time naproxen [From ALEVE] Allergy Intermediate S-SWELLS-OR Verified 12/27/17 16:12 AL/THROAT oxytetracycline Allergy Intermediate Verified 12/27/17 16:12 [From TERRAMYCIN] tetracycline [TETRACYCLINE] Allergy Intermediate NA-SEDATION Verified 12/27/17 16:12 Home Medications:: Home Medications Medication Instructions Recorded Confirmed Type Carvedilol [Carvedilol 25mg Tab] 25 mg PO BID 12/27/17 12/28/17 History Fluticasone/Salmeterol 50 - 250 mcg IH BID 12/27/17 12/27/17 History [Fluticasone/Salmeterol 250/50mcg diskus] Levothyroxine Sodium 200 mcg PO DAILY 12/27/17 12/27/17 History [Levothyroxine 200mcg (0.2mg) Tab] Lisinopril [Lisinopril 40mg Tablet] 40 mg PO DAILY 12/27/17 12/27/17 History Metformin HCl 1,000 mg PO BID 12/27/17 12/27/17 History Montelukast Sodium [Montelukast 10 mg PO HS 12/27/17 12/27/17 History 10mg Tab] Rivaroxaban [Xarelto 20mg Tablet] 20 mg PO DAILY 12/27/17 12/27/17 History Rosuvastatin Calcium 10 mg PO DAILY 12/27/17 12/27/17 History Sertraline HCl [Zoloft 50mg tablet] 50 mg PO DAILY 12/27/17 12/27/17 History dilTIAZem HCl [Diltiazem 360mg 360 mg PO DAILY 12/27/17 12/27/17 History 24Hr ER Cap] hydroCHLOROthiazide [HCTZ 25mg 12.5 mg PO DAILY 12/27/17 12/27/17 History tab] Height: 1.57 m Weight: 107.671 kg Laboratory Results:: Laboratory Results - last 24 hr 12/27/17 16:30: WBC 20.4 H*, RBC 4.04 L, Hgb 11.3 L, Hct 35.2 L, MCV 87.2, MCH 27.9, MCHC 32.0, RDW 14.7, Plt Count 306, MPV 7.5, Neut % (Auto) 79.5, Lymph % (Auto) 13.7, Dickey % (Auto) 5.3, Eos % (Auto) 1.3, Baso % (Auto) 0.3, Neut # (Auto) 16.2 H, Lymph # (Auto) 2.8, Dickey # (Auto) 1.1 H, Eos # (Auto) 0.3, Baso # (Auto) 0.1, Total Counted 100, Neutrophils % (Manual) 79 H, Lymphocytes % ( Manual) 14, Monocytes % (Manual) 6, Eosinophils % (Manual) 1, Platelet Estimate Normal, RBC Morphology Normal 12/27/17 16:30: Sodium 129 L, Potassium 4.0, Chloride 91 L, Carbon Dioxide 29, Anion Gap 13.0, BUN 16, Creatinine 1.35 H, Estimated Creat Clear 35, Estimated GFR 40 L, Est GFR ( Amer) 48 L, Glucose 248 H, Calcium 9.2 12/27/17 16:30: Lactate 2.2 H 12/27/17 20:40: Lactate 1.3 12/27/17 22:07: POC Glucose 237 H 12/28/17 02:30: POC Glucose 272 H 12/28/17 07:00: Sodium 129 L, Potassium 3.5, Chloride 93 L, Carbon Dioxide 27, Anion Gap 12.5, BUN 14, Creatinine 1.14 H, Estimated Creat Clear 41, Estimated GFR 48 L, Est GFR ( Amer) 59 D, Glucose 253 H, Calcium 8.2 L D 12/28/17 08:00: POC Glucose 268 H 12/28/17 10:58: POC Glucose 378 H* Medical History: Reports:: Asthma, Atrial Fibrillation, Congestive Heart Failure, Chronic Obstructive Pulmonary Disease (COPD), Depression, Diabetes Mellitus Type 2, Hyperlipidemia, Hypertension, MRSA Denies:: Cancer, Diabetes Mellitus Type 1, Seizures Assessment and Plan (1) Abscess of left thigh Current visit: Yes Status: Acute Category: Medical Code(s): L02.416 - Cutaneous abscess of left lower limb (2) Cellulitis of left thigh Current visit: Yes Status: Acute Category: Medical Code(s): L03.116 - Cellulitis of left lower limb (3) Personal history of MRSA (methicillin resistant Staphylococcus aureus) Current visit: Yes Status: Acute Category: Medical Code(s): Z86.14 - Perso nal history of Methicillin resistant Staphylococcus aureus infection (4) DM2 (diabetes mellitus, type 2) Current visit: Yes Status: Acute Category: Medical Code(s): E11.9 - Type 2 diabetes mellitus without complications (5) HTN (hypertension) Current visit: Yes Status: Acute Category: Medical Code(s): I10 - Essential (primary) hypertension (6) Hyperlipidemia Current visit: Yes Status: Acute Category: Medical Code(s): E78.5 - Hy perlipidemia, unspecified (7) Hypothyroid Current visit: Yes Status: Acute Category: Medical Code(s): E03.9 - Hypothyroidism, unspecified (8) Depression Current visit: Yes Status: Acute Category: Medical Code(s): F32.9 - Major depressive disorder, single episode, unspecified (9) COPD (chronic obstructive pulmonary disease) Current visit: Yes Status: Acute Category: Medical Code(s): J44.9 - Chronic obstructive pulmonary disease, unspecified (10) Atrial fibrillation Current visit: Yes Status: Acute Category: Medical Code(s): I48.91 - Unspecified atrial fibrillation (11) CHF (congestive heart failure) Current visit: Yes Status: Acute Category: Medical Code(s): I50.9 - Heart failure, unspecified (12) Allergic rhinitis Current visit: Yes Status: Acute Category: Medical Code(s): J30.9 - Allergic rhinitis, unspecified (13) Morbid obesity Current visit: Yes Status: Acute Category: Medical Code(s): E66.01 - Morbid (severe) obesity due to excess calories (14) BMI 40.0-44.9, adult Current visit: Yes Status: Acute Category: Medical Code(s): Z68.41 - Body mass index (BMI) 40.0-44.9, adult (15) Leucocytosis Current visit: Yes Status: Acute Category: Medical Code(s): D72.829 - Elevated white blood cell count, unspecified - Assessment and plan all Dx Assessment and Plan for all problems:: BASED ON PATIENT'S FACTORS, RECOMMEND STARTING WITH VANCOMYCIN 2000 MG Q24H AT THIS TIME. PHARMACY WILL FOLLOW UP DAILY AND ADJUST APPROPRIATE. [place] RODRÍGUEZ, PHARMD
--- NOTE | 2017-12-28 14:27 | Pharmacy Consult Notes ---
[facility] Pharmacy VTE Monitoring - Patient Demographics Admission date: 12/28/17 Report Date: 12/28/17 Time: 14:27 Allergies/Adverse Reactions: Patient Allergies naproxen [From ALEVE] Allergy (Intermediate, Verified 12/27/17 16:12) [id number]/THROAT oxytetracycline [From TERRAMYCIN] Allergy (Intermediate, Verified 12/27/17 16:12) tetracycline [TETRACYCLINE] Allergy (Intermediate, Verified 12/27/17 16:12) NA-SEDATION Height: 1.57 m Weight: 107.671 kg Patient Problems: Current Active Problems Cellulitis of left thigh (Acute) Abscess of left thigh (Acute) Personal history of MRSA (methicillin resistant Staphylococcus aureus) (Acute) DM2 (diabetes mellitus, type 2) (Acute) HTN (hypertension) (Acute) Hyperlipidemia (Acute) Hypothyroid (Acute) Depression (Acute) COPD (chronic obstructive pulmonary disease) (Acute) Atrial fibrillation (Acute) CHF (congestive heart failure) (Acute) Allergic rhinitis (Acute) Morbid obesity (Acute) BMI 40.0-44.9, adult (Acute) Leucocytosis (Acute) - VTE Risk Labs: VTE Related Lab Results Hgb 11.3 g/dL (12.2-16.2) L 12/27/17 16:30 Hct 35.2 % (37.0-47.0) L 12/27/17 16:30 Plt Count 306 K/mm3 (142-424) 12/27/17 16:30 BUN 14 mg/dL (7-18) 12/28/17 07:00 Creatinine 1.14 mg/dL (0.55-1.02) H 12/28/17 07:00 Estimated Creat Clear 41 mL/min (50-200) 12/28/17 07:00 VTE Score: 3 VTE Risk Level: Low Risk - Prophylaxis Pharmacologic Type: Other (XARELTO RESTARTED TODAY)
[2017-12-29 08:41] LABS: Basophils % 0.1 % (0.1-2.0); Eosinophils % 0.2 % (0.1-12.0); Hematocrit 29.3 % (37.0-47.0); Hemoglobin 9.1 g/dL (12.2-16.2); Lymphocytes # 1.4 K/mm3 (0.7-4.5); Lymphocytes % 8.8 % (10-50); Mean Corpuscular Volume 90.1 fl (81-99); Mean Platelet Volume 7.7 fl (7.4-10.4); Monocytes # 0.6 K/mm3 (0.1-1.0); Monocytes % 3.6 % (1.7-9.3); Neutrophils # 13.6 K/mm3 (1.8-7.8); Neutrophils % 87.4 % (37.0-80.0); Platelet Count 267 K/mm3 (142-424); Red Blood Count 3.26 M/mm3 (4.20-5.40); Red Cell Distribution Width 14.6 % (11.5-17.5); White Blood Count 15.6 K/mm3 (4.8-10.8)
[2017-12-29 09:16] LABS: Lymphocytes % 7 % (10-50); Monocytes % 5 % (2-9); Neutrophils % 88 % (42-76); RBC Morphology Normal; Total Cells Counted 100
--- NOTE | 2017-12-29 09:18 | Progress Note ---
Subjective Patient reports: feels better Exam Vital signs and Labs for Last 24 Hours: Temp Pulse Resp BP Pulse Ox 97.7 F 103 H 18 107/56 L 100 12/29/17 07:34 12/29/17 07:34 12/29/17 07:34 12/29/17 07:34 12/29/17 07:55 Laboratory Results - last 24 hr 12/28/17 10:58: POC Glucose 378 H* 12/28/17 16:43: POC Glucose 466 H* 12/28/17 22:20: POC Glucose 305 H* 12/29/17 06:40: POC Glucose 323 H* 12/29/17 08:00: WBC 15.6 H, RBC 3.26 L, Hgb 9.1 L, Hct 29.3 L, MCV 90.1, MCH 28.0, MCHC 31.0 L, RDW 14.6, Plt Count 267, MPV 7.7, Neut % (Auto) 87.4 H, Lymph % (Auto) 8.8 L, White % (Auto) 3.6, Eos % (Auto) 0.2, Baso % (Auto) 0.1, Neut # (Auto) 13.6 H, Lymph # (Auto) 1.4, White # (Auto) 0.6, Eos # (Auto) 0.0, Baso # (Auto) 0.0, Total Counted 100, Neutrophils % (Manual) 88 H, Lymphocytes % (Manual) 7 L, Monocytes % (Manual) 5, Platelet Estimate Normal, RBC Morphology Normal I & O for Last 24 hours: Intake & Output 12/26/17 12/27/17 12/28/17 12/29/17 11:59 11:59 11:59 11:59 Intake Total 200 / 200 3291 / 3291 Balance 200 / 200 3291 / 3291 Weight 237 lb 6 oz 237 lb 8 oz Microbiology Reports for the Last 24 Hours: Microbiology 12/28/17 Unknown Thigh - Left Gram Stain - Final - *Routine Skin Exam Comments: dressing intact. no spreading cellulitis. Progress Note: A&P (1) Abscess of left thigh Status: Acute Assessment and plan: improving s/p I&D continue abx dressing changes Current Visit: Yes (2) Cellulitis of left thigh Status: Acute Current Visit: Yes (3) Personal history of MRSA (methicillin resistant Staphylococcus aureus) Status: Acute Current Visit: Yes (4) DM2 (diabetes mellitus, type 2) Status: Acute Current Visit: Yes (5) HTN (hypertension) Status: Acute Current Visit: Yes (6) Hyperlipidemia Status: Acute Current Visit: Yes (7) Hypothyroid Status: Acute Current Visit: Yes (8) Depression Status: Acute Current Visit: Yes (9) COPD (chronic obstructive pulmonary disease) Status: Acute Current Visit: Yes (10) Atrial fibrillation Status: Acute Current Visit: Yes (11) CHF (congestive heart failure) Status: Acute Current Visit: Yes (12) Allergic rhinitis Status: Acute Current Visit: Yes (13) Morbid obesity Status: Acute Current Visit: Yes (14) BMI 40.0-44.9, adult Status: Acute Current Visit: Yes (15) Leucocytosis Status: Acute Current Visit: Yes
--- NOTE | 2017-12-29 10:51 | Progress Note ---
Internal Medicine - PN: Subj *Date: 12/29/17 *Time: 10:48 Interval history: Patient feels better today, no new complaints. Exam Vital signs and Labs for Last 24 Hours: Temp Pulse Resp BP Pulse Ox 97.7 F 103 H 18 107/56 L 100 12/29/17 07:34 12/29/17 07:34 12/29/17 07:34 12/29/17 07:34 12/29/17 07:55 Laboratory Results - last 24 hr 12/28/17 10:58: POC Glucose 378 H* 12/28/17 16:43: POC Glucose 466 H* 12/28/17 22:20: POC Glucose 305 H* 12/29/17 06:40: POC Glucose 323 H* 12/29/17 08:00: WBC 15.6 H, RBC 3.26 L, Hgb 9.1 L, Hct 29.3 L, MCV 90.1, MCH 28.0, MCHC 31.0 L, RDW 14.6, Plt Count 267, MPV 7.7, Neut % (Auto) 87.4 H, Lymph % (Auto) 8.8 L, [place] % (Auto) 3.6, Eos % (Auto) 0.2, Baso % (Auto) 0.1, Neut # (Auto) 13.6 H, Lymph # (Auto) 1.4, [place] # (Auto) 0.6, Eos # (Auto) 0.0, Baso # (Auto) 0.0, Total Counted 100, Neutrophils % (Manual) 88 H, Lymphocytes % (Manual) 7 L, Monocytes % (Manual) 5, Platelet Estimate Normal, RBC Morphology Normal I & O for Last 24 hours: Intake & Output 12/26/17 12/27/17 12/28/17 12/29/17 11:59 11:59 11:59 11:59 Intake Total 200 / 200 3291 / 3291 Balance 200 / 200 3291 / 3291 Weight 237 lb 6 oz 237 lb 8 oz Microbiology Reports for the Last 24 Hours: Microbiology 12/28/17 Unknown Thigh - Left Gram Stain - Final 12/28/17 Unknown Thigh - Left Abscess Culture - Preliminary NO GROWTH AFTER 24 HOURS - Constitutional no acute distress - *Routine HEENT Exam Head: Present: normocephalic Eye: Present: EOMI, PERRL ENT: Present: mucous membranes moist - *Routine Neck Exam Present: supple. Absent: lymphadenopathy - *Routine Respiratory Exam Present: CTA bilaterally - *Routine Cardiovascular Exam Present: RRR - *Routine Abdominal Exam Present: soft, normoactive bowel sounds. Absent: tenderness - *Routine Extremities Exam Absent: cyanosis, clubbing - *Routine Skin Exam Present: warm Comments: Surgical dressing C/D/I, no surrounding skin erythema - *Routine Neurological Exam Present: alert, oriented X3 Assessment and Plan (1) Abscess of left thigh Current visit: Yes Status: Acute Category: Medical Code(s): L02.416 - Cutaneous abscess of left lower limb (2) Cellulitis of left thigh Current visit: Yes Status: Acute Category: Medical Code(s): L03.116 - Cellulitis of left lower limb (3) Personal history of MRSA (methicillin resistant Staphylococcus aureus) Current visit: Yes Status: Acute Category: Medical Code(s): Z86.14 - Personal history of Methicillin resistant Staphylococcus aureus infection (4) DM2 (diabetes mellitus, type 2) Current visit: Yes Status: Acute Category: Medical Code(s): E11.9 - Type 2 diabetes mellitus without complications (5) HTN (hypertension) Current visit: Yes Status: Acute Category: Medical Code(s): I10 - Essential (primary) hypertension (6) Hyperlipidemia Current visit: Yes Status: Acute Category: Medical Code(s): E78.5 - Hyperlipidemia, unspecified (7) Hypothyroid Current visit: Yes Status: Acute Category: Medical Code(s): E03.9 - Hypothyroidism, unspecified (8) Depression Current visit: Yes Status: Acute Category: Medical Code(s): F32.9 - Major depressive disorder, single episode, unspecified (9) COPD (chronic obstructive pulmonary disease) Current visit: Yes Status: Acute Category: Medical Code(s): J44.9 - Chronic obstructive pulmonary disease, unspecified (10) Atrial fibrillation Current visit: Yes Status: Acute Category: Medical Code(s): I48.91 - Unspecified atrial fibrillation (11) CHF (congestive heart failure) Current visit: Yes Status: Acute Category: Medical Code(s): I50.9 - Heart failure, unspecified (12) Allergic rhinitis Current visit: Yes Status: Acute Category: Medical Code(s): J30.9 - Allergic rhinitis, unspecified (13) Morbid obesity Current visit: Yes Status: Acute Category: Medical Code(s): E66.01 - Morbid (severe) obesity due to excess calories (14) BMI 40.0-44.9, adult Current visit: Yes Status: Acute Category: Medical Code(s): Z68.41 - Body mass index (BMI) 40.0-44.9, adult (15) Leucocytosis Current visit: Yes Status: Acute Category: Medical Code(s): D72.829 - Elevated white blood cell count, unspecified - Assessment and plan all Dx Assessment and Plan for all problems:: Patient is improving, continue current treatment, await cultures.
--- NOTE | 2017-12-30 06:20 | Progress Note ---
Subjective Patient reports: feels better Exam Vital signs and Labs for Last 24 Hours: Temp Pulse Resp BP Pulse Ox 97.8 F 114 H 18 132/89 98 12/30/17 04:00 12/30/17 04:00 12/30/17 04:00 12/30/17 04:00 12/30/17 04:00 Laboratory Results - last 24 hr 12/29/17 06:40: POC Glucose 323 H* 12/29/17 08:00: WBC 15.6 H, RBC 3.26 L, Hgb 9.1 L, Hct 29.3 L, MCV 90.1, MCH 28.0, MCHC 31.0 L, RDW 14.6, Plt Count 267, MPV 7.7, Neut % (Auto) 87.4 H, Lymph % (Auto) 8.8 L, [place] % (Auto) 3.6, Eos % (Auto) 0.2, Baso % (Auto) 0.1, Neut # (Auto) 13.6 H, Lymph # (Auto) 1.4, [place] # (Auto) 0.6, Eos # (Auto) 0.0, Baso # (Auto) 0.0, Total Counted 100, Neutrophils % (Manual) 88 H, Lymphocytes % (Manual) 7 L, Monocytes % (Manual) 5, Platelet Estimate Normal, RBC Morphology Normal 12/29/17 11:11: POC Glucose 263 H 12/29/17 16:35: POC Glucose 243 H 12/29/17 20:29: POC Glucose 216 H I & O for Last 24 hours: Intake & Output 12/27/17 12/28/17 12/29/17 12/30/17 11:59 11:59 11:59 11:59 Intake Total 200 / 200 3291 / 3291 2451 / 2451 Balance 200 / 200 3291 / 3291 2451 / 2451 Weight 237 lb 6 oz 237 lb 8 oz Microbiology Reports for the Last 24 Hours: Microbiology 12/27/17 16:30 Blood Blood Culture - Preliminary NO GROWTH AFTER 48 HOURS 12/27/17 16:30 Blood Blood Culture - Preliminary NO GROWTH AFTER 48 HOURS 12/28/17 Unknown Thigh - Left Gram Stain - Final 12/28/17 Unknown Thigh - Left Abscess Culture - Preliminary Multiple GPCs noted on GS - Constitutional no acute distress - *Routine Skin Exam Comments: no spreading cellulitis Progress Note: A&P (1) Abscess of left thigh Status: Acute Assessment and plan: doing well s/p I&D OK to d/c home with dressing changes and completion of abx from surgical standpoint [still awaiting all final cx/sensitivities] Current Visit: Yes (2) Cellulitis of left thigh Status: Acute Current Visit: Yes (3) Personal history of MRSA (methicillin resistant Staphylococcus aureus) Status: Acute Current Visit: Yes (4) DM2 (diabetes mellitus, type 2) Status: Acute Current Visit: Yes (5) HTN (hypertension) Status: Acute Current Visit: Yes (6) Hyperlipidemia Status: Acute Current Visit: Yes (7) Hypothyroid Status: Acute Current Visit: Yes (8) Depression Status: Acute Current Visit: Yes (9) COPD (chronic obstructive pulmonary disease) Status: Acute Current Visit: Yes (10) Atrial fibrillation Status: Acute Current Visit: Yes (11) CHF (congestive heart failure) Status: Acute Current Visit: Yes (12) Allergic rhinitis Status: Acute Current Visit: Yes (13) Morbid obesity Status: Acute Current Visit: Yes (14) BMI 40.0-44.9, adult Status: Acute Current Visit: Yes (15) Leucocytosis Status: Acute Current Visit: Yes
--- NOTE | 2017-12-30 08:44 | Progress Note ---
Internal Medicine - PN: Subj *Date: 12/30/17 *Time: 08:42 Interval history: Patient feels better today, wants to go home. Exam Vital signs and Labs for Last 24 Hours: Temp Pulse Resp BP Pulse Ox 97.8 F 114 H 18 132/89 98 12/30/17 04:00 12/30/17 04:00 12/30/17 04:00 12/30/17 04:00 12/30/17 04:00 Laboratory Results - last 24 hr 12/29/17 08:00: WBC 15.6 H, RBC 3.26 L, Hgb 9.1 L, Hct 29.3 L, MCV 90.1, MCH 28.0, MCHC 31.0 L, RDW 14.6, Plt Count 267, MPV 7.7, Neut % (Auto) 87.4 H, Lymph % (Auto) 8.8 L, [place] % (Auto) 3.6, Eos % (Auto) 0.2, Baso % (Auto) 0.1, Neut # (Auto) 13.6 H, Lymph # (Auto) 1.4, [place] # (Auto) 0.6, Eos # (Auto) 0.0, Baso # (Auto) 0.0, Total Counted 100, Neutrophils % (Manual) 88 H, Lymphocytes % (Manual) 7 L, Monocytes % (Manual) 5, Platelet Estimate Normal, RBC Morphology Normal 12/29/17 11:11: POC Glucose 263 H 12/29/17 16:35: POC Glucose 243 H 12/29/17 20:29: POC Glucose 216 H 12/30/17 05:39: POC Glucose 160 H I & O for Last 24 hours: Intake & Output 12/27/17 12/28/17 12/29/17 12/30/17 11:59 11:59 11:59 11:59 Intake Total 200 / 200 3291 / 3291 2451 / 2451 Balance 200 / 200 3291 / 3291 2451 / 2451 Weight 237 lb 6 oz 237 lb 8 oz 242 lb 6 oz Microbiology Reports for the Last 24 Hours: Microbiology 12/28/17 Unknown Thigh - Left Gram Stain - Final 12/28/17 Unknown Thigh - Left Abscess Culture - Preliminary 12/27/17 16:30 Blood Blood Culture - Preliminary NO GROWTH AFTER 48 HOURS 12/27/17 16:30 Blood Blood Culture - Preliminary NO GROWTH AFTER 48 HOURS - Constitutional no acute distress - *Routine HEENT Exam Head: Present: normocephalic Eye: Present: EOMI, PERRL ENT: Present: mucous membranes moist - *Routine Neck Exam Present: supple. Absent: lymphadenopathy - *Routine Respiratory Exam Present: CTA bilaterally - *Routine Cardiovascular Exam Present: RRR - *Routine Abdominal Exam Present: soft, normoactive bowel sounds. Absent: tenderness - *Routine Extremities Exam Absent: cyanosis, clubbing, edema - *Routine Skin Exam Present: warm Comments: per surgery note - *Routine Neurological Exam Present: alert, oriented X3 Assessment and Plan (1) Abscess of left thigh Current visit: Yes Status: Acute Category: Medical Code(s): L02.416 - Cutaneous abscess of left lower limb (2) Cellulitis of left thigh Current visit: Yes Status: Acute Category: Medical Code(s): L03.116 - Cellulitis of left lower limb (3) Personal history of MRSA (methicillin resistant Staphylococcus aureus) Current visit: Yes Status: Acute Category: Medical Code(s): Z86.14 - Personal history of Methicillin resistant Staphylococcus aureus infection (4) DM2 (diabetes mellitus, type 2) Current visit: Yes Status: Acute Category: Medical Code(s): E11.9 - Type 2 diabetes mellitus without complications (5) HTN (hypertension) Current visit: Yes Status: Acute Category: Medical Code(s): I10 - Essential (primary) hypertension (6) Hyperlipidemia Current visit: Yes Status: Acute Category: Medical Code(s): E78.5 - Hyperlipidemia, unspecified (7) Hypothyroid Current visit: Yes Status: Acute Category: Medical Code(s): E03.9 - Hypothyroidism, unspecified (8) Depression Current visit: Yes Status: Acute Category: Medical Code(s): F32.9 - Major depressive disorder, single episode, unspecified (9) COPD (chronic obstructive pulmonary disease) Current visit: Yes Status: Acute Category: Medical Code(s): J44.9 - Chronic obstructive pulmonary disease, unspecified (10) Atrial fibrillation Current visit: Yes Status: Acute Category: Medical Code(s): I48.91 - Unspecified atrial fibrillation (11) CHF (congestive heart failure) Current visit: Yes Status: Acute Category: Medical Code(s): I50.9 - Heart failure, unspecified (12) Allergic rhinitis Current visit: Yes Status: Acute Category: Medical Code(s): J30.9 - Allergic rhinitis, unspecified (13) Morbid obesity Current visit: Yes Status: Acute Category: Medical Code(s): E66.01 - Morbid (severe) obesity due to excess calories (14) BMI 40.0-44.9, adult Current visit: Yes Status: Acute Category: Medical Code(s): Z68.41 - Body mass index (BMI) 40.0-44.9, adult (15) Leucocytosis Current visit: Yes Status: Acute Category: Medical Code(s): D72.829 - Elevated white blood cell count, unspecified - Assessment and plan all Dx Assessment and Plan for all problems:: OK for discharge today on oral Bactrim, f/u with Dr. Ortiz in 1 week.
--- NOTE | 2017-12-30 15:16 | Discharge Summary ---
General - General Admission date:: 12/28/17 Discharge date: 12/30/17 HPI HPI: Ms. Dunn is a 62yo female who presented to [facility] ER today with a 3 day hx of redness, swelling, and tenderness in the proximal leg. She states this area started as a small red spot and got progressively worse. She developed fever, chills, and nausea yesterday. She states this is similar to a previous episode she had one year ago when she had an MRSA abscess that required surgical I&D. She was admitted for IV abx and a surgical consult. Hospital Course Hospital Course: The patient's xarelto was held and she was started on vancomycin. She was seen by Dr. Ortiz and he performed an I&D on 12/28/17. The patient tolerated the procedure well. She was followed by surgery and was stable to be discharged home on 12/30/17 on oral Bactrim. Her wound culture is still pending. She will f/u with Dr. Ortiz in 1 week. Objective Vital signs: Temp Pulse Resp BP Pulse Ox 97.6 F 90 16 122/90 100 12/30/17 12:16 12/30/17 12:16 12/30/17 12:16 12/30/17 12:16 12/30/17 12:16 Narrative: - Constitutional no acute distress - *Routine HEENT Exam Head: Present: normocephalic Eye: Present: EOMI, PERRL ENT: Present: mucous membranes moist - *Routine Neck Exam Present: supple. Absent: lymphadenopathy - *Routine Respiratory Exam Present: CTA bilaterally - *Routine Cardiovascular Exam Present: RRR - *Routine Abdominal Exam Present: soft, normoactive bowel sounds. Absent: tenderness - *Routine Extremities Exam Present: edema (LLE) - *Routine Skin Exam Comments: Fairly large, erythematous, indurated area of skin on the left proximal thigh with some central fluctuance - *Routine Neurological Exam Present: alert, oriented X3 Results Labs on day of discharge: Labs from last 24 hours 12/30/17 12/30/17 12/29/17 10:33 05:39 20:29 POC Glucose 230 H 160 H 216 H 12/29/17 16:35 POC Glucose 243 H Preliminary micro results at discharge 12/28/17 Unknown Abscess Culture - Preliminary Thigh - Left Gram Positive Cocci 12/27/17 16:30 Blood Culture - Preliminary Blood NO GROWTH AFTER 48 HOURS 12/27/17 16:30 Blood Culture - Preliminary Blood NO GROWTH AFTER 48 HOURS DS: Diagnosis - Discharge Diagnosis (1) Abscess of left thigh Status: Acute (2) Cellulitis of left thigh Status: Acute (3) Personal history of MRSA (methicillin resistant Staphylococcus aureus) Status: Acute (4) DM2 (diabetes mellitus, type 2) Status: Acute (5) HTN (hypertension) Status: Acute (6) Hyperlipidemia Status: Acute (7) Hypothyroid Status: Acute (8) Depression Status: Acute (9) COPD (chronic obstructive pulmonary disease) Status: Acute (10) Atrial fibrillation Status: Acute (11) CHF (congestive heart failure) Status: Acute (12) Allergic rhinitis Status: Acute (13) Morbid obesity Status: Acute (14) BMI 40.0-44.9, adult Status: Acute (15) Leucocytosis Status: Acute Discharge Plan - Patient Discharge Instructions ACTIVITY: Continue current activity Patient Instructions: How to Care for a Surgical Wound, DI for Cellulitis -- Adult, Heart Failure, DI for Surgical Site Infection - Follow up Plan Follow up with: Beau Ortiz MD [Staff Physician] - 1 week Disposition: Home, Self-Usp Medications: Home Medications Medication Instructions Recorded Confirmed Type Carvedilol [Carvedilol 25mg Tab] 25 mg PO BID 12/27/17 12/28/17 History Fluticasone/Salmeterol 50 - 250 mcg IH BID 12/27/17 12/27/17 History [Fluticasone/Salmeterol 250/50mcg diskus] Levothyroxine Sodium 200 mcg PO DAILY 12/27/17 12/27/17 History [Levothyroxine 200mcg (0.2mg) Tab] Lisinopril [Lisinopril 40mg Tablet] 40 mg PO DAILY 12/27/17 12/27/17 History Metformin HCl 1,000 mg PO BID 12/27/17 12/27/17 History Montelukast Sodium [Montelukast 10 mg PO HS 12/27/17 12/27/17 History 10mg Tab] Rivaroxaban [Xarelto 20mg Tablet] 20 mg PO DAILY 12/27/17 12/27/17 History Rosuvastatin Calcium 10 mg PO DAILY 12/27/17 12/27/17 History Sertraline HCl [Zoloft 50mg tablet] 50 mg PO DAILY 12/27/17 12/27/17 History dilTIAZem HCl [Diltiazem 360mg 360 mg PO DAILY 12/27/17 12/27/17 History 24Hr ER Cap] hydroCHLOROthiazide [HCTZ 25mg 12.5 mg PO DAILY 12/27/17 12/27/17 History tab] Prescriptions/Medication Reconciliation: New Sulfamethoxazole/Trimethoprim [Bactrim DS tablet] 1 each PO BID #20 tablet Continue Rosuvastatin Calcium 10 mg PO DAILY Rivaroxaban [Xarelto 20mg Tablet] 20 mg PO DAILY Metformin HCl 1,000 mg PO BID Sertraline HCl [Zoloft 50mg tablet] 50 mg PO DAILY Levothyroxine Sodium [Levothyroxine 200mcg (0.2mg) Tab] 200 mcg PO DAILY Carvedilol [Carvedilol 25mg Tab] 25 mg PO BID Lisinopril [Lisinopril 40mg Tablet] 40 mg PO DAILY Montelukast Sodium [Montelukast 10mg Tab] 10 mg PO HS Fluticasone/Salmeterol [Fluticasone/Salmeterol 250/50mcg diskus] 50 - 250 mcg IH BID hydroCHLOROthiazide [HCTZ 25mg tab] 12.5 mg PO DAILY dilTIAZem HCl [Diltiazem 360mg 24Hr ER Cap] 360 mg PO DAILY
== END 2017-12-30 12:30 | disposition home or self-care (01) ==
LOC: ER 15:56 → 2ND 15:56
PROVIDERS: ADMIT Family Medicine; ATTEND Family Medicine

== ENCOUNTER → 2018-11-26 10:19 | Outpatient (CLI) | payer MEDICARE, SELFPAY ==
--- NOTE | 2018-11-26 10:31 | ECG_ITS ---
APPROVED REPORT Exam: Resting ECG HR:77 bpm ECG Measurements Heart Rate 77 AXES RI 186 P 46 QRSd 136 QRS -42 QT 442 T 69 QTc 500 <Conclusion> Normal sinus rhythm Left axis deviation LBBB Abnormal ECG Electronically signed by : Sedrick Tucker, 11/26/2018 11:34:27
== END ==
PROVIDERS: PCP Family Medicine; Visit Provider Physician Assistant
DX: I48.91 Unspecified atrial fibrillation (principal)
CPT/HCPCS: 93005

== ENCOUNTER → 2018-12-04 11:06 | Outpatient (CLI) | payer MEDICARE, SELFPAY | PROVIDERS: PCP Family Medicine; Visit Provider Internal Medicine Cardiovascular Disease | DX: I48.91 Unspecified atrial fibrillation (principal); R00.1 Bradycardia, unspecified; R00.2 Palpitations; G47.33 Obstructive sleep apnea (adult) (pediatric) | CPT/HCPCS: 93270; G0399 ==

== ENCOUNTER → 2018-12-11 07:05 | Outpatient (CLI) | payer MEDICARE, SELFPAY ==
--- NOTE | 2018-12-11 07:07 | CA_ITS ---
[facility] RADIOLOGICAL CONSULTATION Patient Name : ALINA HOLDEN X-RAY # : [id number] Physician: PABLITO CRUZ AGE: 63Y : 1955 00:00:00 ( F ) Exam : CA ECHO DOPPLER COMPLETE ACC # : [id number] Study Date : 12/11/2018 07:40:45 Patient Class : O FINAL REPORT CLINICAL DATA: FINDINGS: TRANSCRIBED REPORT EXAM: Comprehensive 2D, Doppler, and color-flow Echocardiogram Agronomy Specialist: Shima Carroll CRT Ht: 5 ft 2 in Wt: 222lbs BSA: 2.00 BP: 82/48 mmHg Indications: new afib, sob, bradycardia, copd, htn, hld 2D Dimensions LVOT 1.93 cm (M/F) 1.5-2.5 M-Mode Dimensions RVDd 2.34 cm (0.9-2.6) LVDd 5.10 cm (3.5-5.7) LVDs 4.23 cm (3.5-5.7) IVSd 1.03 cm (0.6-1.1) PWd 0.86 cm (0.6-1.1) EF (Teich) 35.50% FS 17.10% EDV (Teich) 123.80 mL ESV (Teich) 79.90 mL LV Diastology E/A Ratio 3.89 Aortic Valve LVOT Max 144.00 (70-110 cm/s) LVOT VTI 26.73 cm Mitral Valve MV A Velocity 24.00 (40-130 cm/s) Electronically signed by : IMPRESSION: Dictated by at Transcribed by at
== END ==
PROVIDERS: PCP Family Medicine; Visit Provider Internal Medicine Cardiovascular Disease
DX: I10 Essential (primary) hypertension (principal); I48.91 Unspecified atrial fibrillation; R00.1 Bradycardia, unspecified; R06.02 Shortness of breath; R53.83 Other fatigue; R94.31 Abnormal electrocardiogram [ECG] [EKG]
CPT/HCPCS: 93306

== ENCOUNTER → 2018-12-29 11:39 | Outpatient (CLI) | payer MEDICARE, SELFPAY ==
[2018-12-29 13:12] LABS: Anion Gap 13.8 mEq/L (5-15); Blood Urea Nitrogen 28 mg/dL (7-18); Calcium 7.9 mg/dL (8.5-10.1); Carbon Dioxide 27 mmol/L (21.0-32.0); Chloride 95 mmol/L (98-107); Creatinine,Serum 1.19 mg/dL (0.55-1.02); Estimated Glomerular Filt Rate 46 ml/min (>60); GFR (African American) 56 ML/MIN (>60); Glucose 378 mg/dL (74-106); Potassium 4.8 mmoL/L (3.5-5.1); Sodium 131 mmol/L (136-145)
[2018-12-29 13:22] LABS: Alanine Aminotransferase 17 U/L (12-78); Albumin Level 2.8 gm/dL (3.4-5.0); Albumin/Globulin Ratio 0.7 (1.1-1.8); Alkaline Phosphatase 81 U/L (46-116); Anion Gap 14.6 mEq/L (5-15); Aspartate Amino Transferase 10 U/L (15-37); Bilirubin,Total 0.7 mg/dL (0.2-1.0); Blood Urea Nitrogen 28 mg/dL (7-18); Calcium 8.2 mg/dL (8.5-10.1); Carbon Dioxide 27 mmol/L (21.0-32.0); Chloride 95 mmol/L (98-107); Creatinine,Serum 1.21 mg/dL (0.55-1.02); Estimated Glomerular Filt Rate 45 ml/min (>60); GFR (African American) 55 ML/MIN (>60); Globulin 4.3 gm/dl (1.3-3.2); Glucose 380 mg/dL (74-106); Potassium 4.6 mmoL/L (3.5-5.1); Sodium 132 mmol/L (136-145); Thyroid Stimulating Hormone 0.11 uIU/ml (0.358-3.740); Total Protein,Serum 7.1 gm/dL (6.4-8.2)
== END ==
PROVIDERS: PCP Family Medicine; Visit Provider Internal Medicine Cardiovascular Disease
DX: I10 Essential (primary) hypertension (principal); I48.91 Unspecified atrial fibrillation; R06.02 Shortness of breath; E03.9 Hypothyroidism, unspecified; E11.9 Type 2 diabetes mellitus without complications; Z79.84 Long term (current) use of oral hypoglycemic drugs; Z79.4 Long term (current) use of insulin
CPT/HCPCS: 36415; 80048; 80053; 83880; 84443

== ENCOUNTER → 2019-04-22 07:13 | Outpatient (CLI) | payer MEDICARE, SELFPAY ==
[2019-04-22 11:14] LABS: Free T4 (Free Thyroxine) 1.21 ng/dl (0.78-2.19)
[2019-04-22 11:28] LABS: Thyroid Stimulating Hormone 3.26 uIU/mL (0.465-4.68)
[2019-04-22 11:32] LABS: Ferritin 30.3 ng/ml (11.1-264)
[2019-04-22 15:18] LABS: Hemoglobin A1C 10.8 % (4.0-6.0)
[2019-04-22 20:52] LABS: Chloride 92 mmol/L (98-107); Potassium 4.1 mmoL/L (3.5-5.1); Sodium 132 mmol/L (136-145)
[2019-04-22 20:54] LABS: Blood Urea Nitrogen 18 mg/dl (7-17); Estimated Glomerular Filt Rate 63 ml/min (>60); GFR (African American) 77 ML/MIN (>60)
[2019-04-22 20:55] LABS: Alanine Aminotransferase 14 U/L (12-78); Albumin Level 3.8 g/dl (3.5-5.0); Albumin/Globulin Ratio 1.3 (1.1-1.8); Alkaline Phosphatase 89 U/L (38-126); Anion Gap 16.1 mEq/L (5-15); Aspartate Amino Transferase 22 U/L (14-36); Bilirubin,Total 0.4 mg/dl (0.2-1.3); Calcium 8.9 mg/dl (8.4-10.2); Carbon Dioxide 28 mmol/L (22.0-30.0); Chol/HDL Ratio 2.6 (1-3.5); Cholesterol 107 mg/dl (140-200); Glucose 318 mg/dl (74-100); HDL Cholesterol 41 mg/dl (40-60); Total Protein,Serum 6.8 g/dl (6.3-8.2); Triglycerides 223 mg/dl (30-150); VLDL Cholesterol 45 mg/dL (0-40)
[2019-04-22 21:07] LABS: Direct LDL Cholesterol 38.17 mg/dL (100-129)
[2019-04-23 09:11] LABS: Iron 33 ug/dL (27-139); Iron Saturation 10 % (15-55); UIBC 302 ug/dL (118-369)
[2019-04-23 12:18] LABS: Folate >20.0 ng/mL (>3.0); Vitamin D 25 Hydroxy 52.5 ng/mL (30.0-100.0)
[2019-04-24 10:30] LABS: Vitamin B12 551 pg/mL (232-1245)
== END ==
PROVIDERS: Visit Provider Physician Assistant
DX: E03.9 Hypothyroidism, unspecified (principal); E78.5 Hyperlipidemia, unspecified; D64.9 Anemia, unspecified; E11.9 Type 2 diabetes mellitus without complications; Z79.4 Long term (current) use of insulin; Z79.84 Long term (current) use of oral hypoglycemic drugs
CPT/HCPCS: 36415; 80053; 80061; 82607; 82652; 82728; 82746; 83036; 83540; 83550; 84439; 84443

== ENCOUNTER → 2019-09-01 14:46 | Outpatient (CLI) | payer MEDICARE, SELFPAY ==
--- NOTE | 2019-09-01 14:51 | XR_ITS ---
PROCEDURE: XR LUMBAR SPINE MIN 4V CLINICAL INDICATION: ACUTE L SIDED LOW BACK PAIN W/ L SIDED SCIATICA COMPARISON: No exams were available for comparison FINDINGS: Mild levoscoliosis with degenerative disc disease from L2-L5. There is mild facet arthritic changes at L5 and S1. No fracture or dislocation. There is a lucency noted along the superior endplate L4 at 8 mm. This could be related to a Schmorl's node however, 1 would expect a more sclerotic margin with a Schmorl's node. IMPRESSION: Degenerative changes with scoliosis. 8 mm lucent lesion superior endplate of L4 possibly due to a Schmorl's node and may be confirmed with MRI. Dictated by: Lewis Valles MD 09/01/2019 15:24 Electronically signed by Lewis Valles MD in [place] 09/01/2019 15:24
== END ==
PROVIDERS: PCP Family Medicine; Visit Provider Family Medicine
DX: M54.42 Lumbago with sciatica, left side (principal)
CPT/HCPCS: 72110

== ENCOUNTER → 2019-10-07 08:08 | Outpatient (CLI) | payer MEDICARE, SELFPAY ==
--- NOTE | 2019-10-07 08:26 | MM_ITS ---
PROCEDURE: MM DIG SCREENING MAMM BI W/CAD Digital Breast Tomosynthesis Included CLINICAL INDICATION: SCREENING There is a history of breast cancer patient's maternal aunt. COMPARISON: Previous mammograms at [facility] but they have been purged TECHNIQUE: Standard CC and MLO images and 3D Tomosynthesis was obtained. R2 CAD reviewed. FINDINGS: The breasts are composed primarily of fat with minimal scattered fibroglandular densities throughout each breast. There are few benign-appearing microcalcifications in each breast. Some of the microcalcifications appear to be cutaneous. There is no suspicious lesion and no suspicious microcalcifications. IMPRESSION: Fibrofatty parenchyma with no suspicious lesions seen BI-RAD Category: 2 Benign Finding(s) FOLLOW-UP: 1YR 1 Year Follow-up (A letter has been sent to the patient regarding results of the study.) Dictated by: Dr. Luis Chisholm MD 10/08/2019 10:16 Dr. Luis Chisholm MD in [place] 10/08/2019 10:16
== END ==
PROVIDERS: PCP Family Medicine; Visit Provider Physician Assistant
DX: Z12.31 Encounter for screening mammogram for malignant neoplasm of breast (principal)
CPT/HCPCS: 77063; 77067

== ENCOUNTER → 2019-10-13 08:06 | Outpatient (CLI) | payer MEDICARE, SELFPAY ==
--- NOTE | 2019-10-13 08:09 | XR_ITS ---
PROCEDURE: XR DEXA AXIAL SKELETON CLINICAL HISTORY: POSTMENOPAUSAL COMPARISON: No exams were available for comparison FINDINGS: The right hip BMD is 0.806 with a T-score of -0 4. The left hip BMD is 0.841 with a T-score of -0.1. The lumbar spine BMD is 1.411 with a T-score of 3.3. IMPRESSION: This patient is considered normal according to the World Health Organization criteria. Fracture risk is low. Based on these results of follow-up exam is recommended in 2 years Dictated by: Lewis Valles MD 10/15/2019 05:41 Lewis Valles MD in [place] 10/15/2019 05:41
== END ==
PROVIDERS: PCP Family Medicine; Visit Provider Physician Assistant
DX: Z78.0 Asymptomatic menopausal state (principal)
CPT/HCPCS: 77080

== ENCOUNTER → 2019-10-31 10:41 | Outpatient (CLI) | payer MEDICARE, SELFPAY ==
[2019-10-31 12:18] LABS: Coronavirus 19 IgM Antibody Negative (Negative)
[2019-10-31 12:31] LABS: Coronavirus 19 IgG Antibody Positive (Negative)
== END ==
PROVIDERS: Visit Provider Internal Medicine Gastroenterology
DX: Z01.818 Encounter for other preprocedural examination (principal); Z12.11 Encounter for screening for malignant neoplasm of colon
CPT/HCPCS: 36415; 86328

== ENCOUNTER 2019-11-02 08:12 | Day surgery (SDC) | payer MEDICARE, SELFPAY ==
[2019-10-28 10:57] VITALS: BMI 42.0
[2019-11-02 08:28] VITALS: BP 127/67; PULSE 89; RESP 16; TEMP 36.1; O2SAT 99
[2019-11-02 08:43] LABS: POC Glucose,Bedside 214 (70-110)
[2019-11-02 08:50] VITALS: O2SAT 98
--- NOTE | 2019-11-02 08:53 | P.PN_ITS ---
[facility] Anesthesia Checklist - Structural Data Admitted From: Home Planned Operative Procedure/s: colonoscopy Consent for Planned Operative Procedure(s) Verified: Yes - Additional verifications Anesthesia Reactions: No - Airway Assessment C-Spine Mobility Assessed: Yes TMJ Mobility Assessed: Yes Dentition: Edentulous - Neurological Assessment Level of Consciousness: Awake, Alert, Appropriate - Anesthesia Plan Anesthesia Risk discussed: Yes Anesthesia Plan: Verified ASA Class: III Anesthesia Type: MAC [facility] History I have reviewed the patient's past medical history: Yes Medical History: Reports:: Asthma, Atrial Fibrillation, Congestive Heart Failure, Chronic Obstructive Pulmonary Disease (COPD), Depression, Diabetes Mellitus Type 2, Hyperlipidemia, Hypertension Denies:: Cancer, Diabetes Mellitus Type 1, Internal Pacemaker, MRSA, Seizures *Have you ever received a pneumonia vaccine?: No *Have you received a flu vaccine this season?: No Other Medical History: Reports: Arthritis, Hypothyroidism Anesthesia experience/problems:: none Other Surgeries: Yes: Cardiac Catheterization, Cholecystectomy, Tubal Ligation. No: Pacemaker Amputation: No Fractures: No - *Social History Last grade of school completed: Advanced degree Smoking Status: Never smoker #Yrs smoked (if former smoker): 8 Alcohol Intake: never Substance Use Type: denies use *Occupational Status:: employed Housing: house Household Members: family *Travel in the last 8 weeks: None - Psychiatric History Pschychiatric History:: Reports:: Depression Family Hx:: Cancer, Coronary Artery Disease, Diabetes, Hypertension, Stroke
--- NOTE | 2019-11-02 09:23 | P.PCN_ITS ---
[facility] Procedure Note Procedure Note:: Colonoscopy Procedure Report: Colonoscopy with cold snare polypectomy and cold biopsies Endoscopist: Silas Marcelo II, MD Referring physician: CARITO Schmitz Date of Procedure: November 02, 2019 Equipment: Olympus 180 variable stiffness pediatric colonoscope Sedation: MAC sedation Indication: Mrs. Dunn is a 64-year-old female who is here for initial screening colonoscopy. The patient does have longstanding chronic diarrhea. I suspect that this is IBS diarrhea and over the last year she has had some alternating constipation. She does report some gassiness, bloating and lower abdominal discomfort. She reports no rectal bleeding, weight loss or family history of colon cancer. Procedure: Prior to the procedure, a history and physical exam was performed, and patient's medications and allergies were reviewed. The risks, benefits and alternatives of the sedation and procedure were discussed with the patient. All questions were answered and informed consent was obtained. The patient was brought to the procedure room. Patient identification and proposed procedure were verified by the physician and the nurse. The patient was placed in a left lateral decubitus position and the scope was passed under direct vision. Throughout the procedure, the patient's blood pressure, pulse, and oxygen saturations were monitored continuously. The colonoscopy was accomplished without difficulty. The patient tolerated the procedure well. Findings: On digital rectal examination there was normal rectal tone. There were no external hemorrhoids. The colonoscope was introduced through the anal canal to the rectum and advanced to the cecum. The ileocecal valve and appendiceal orifice were identified. The scope was advanced a short distance into the ileum which appeared grossly normal. The scope was then withdrawn into the colon. The cecum, ascending and transverse colon and mucosa were grossly normal. Cold biopsies were taken from the right colon to rule out microscopic colitis. There was a 4 mm polyp in the descending colon removed via cold snare polypectomy. There were scattered diverticuli throughout the descending and sigmoid colon (LEFT colon). The rectum itself was normal. Upon retroflexion within the rectum there were grade 1-2 internal hemorrhoids. The preparation was excellent throughout with [place] Preparation Score of 9. The cecal time was 11 minutes. Impression: 1. Diminutive descending colon polyp 2. Left-sided diverticulosis 3. Grade 1-2 internal hemorrhoids Plan: I will follow up the polyp pathology and recommend repeat colonoscopy again in 7-10 years based upon the polyp histology. I would encourage dietary measures and bulk fiber supplementation on a long-term daily maintenance basis.
[2019-11-02 09:30] VITALS: BP 91/61; PULSE 77; RESP 12; TEMP 36.9; O2SAT 95
[2019-11-02 09:40] VITALS: BP 120/69; PULSE 76; RESP 16; O2SAT 100
[2019-11-02 09:50] VITALS: BP 108/65; PULSE 80; RESP 16; O2SAT 100
[2019-11-02 10:00] VITALS: BP 111/69; PULSE 80; RESP 16; TEMP 36.9; O2SAT 99
== END 2019-11-02 10:05 | disposition home or self-care (01) ==
LOC: OUTP 08:14
PROVIDERS: PCP Family Medicine; Visit Provider Internal Medicine Gastroenterology
PROC: 0DJD8ZZ Inspection of Lower Intestinal Tract, Via Natural or Artificial Opening Endoscopic (ICD-10-PCS; CPT 45378; principal; 2019-11-02 09:00)
DX: Z12.11 Encounter for screening for malignant neoplasm of colon (principal); K63.5 Polyp of colon; K57.30 Diverticulosis of large intestine without perforation or abscess without bleeding; K64.0 First degree hemorrhoids; E11.9 Type 2 diabetes mellitus without complications; J44.9 Chronic obstructive pulmonary disease, unspecified; I50.9 Heart failure, unspecified; I48.91 Unspecified atrial fibrillation; F32.9 Major depressive disorder, single episode, unspecified; I11.0 Hypertensive heart disease with heart failure; E78.5 Hyperlipidemia, unspecified; M19.90 Unspecified osteoarthritis, unspecified site
CPT/HCPCS: 45380; 45385; 82962; 88305

== ENCOUNTER → 2020-02-23 08:16 | Outpatient (CLI) | payer MEDICARE, SELFPAY ==
--- NOTE | 2020-02-23 08:20 | FL_ITS ---
PROCEDURE: FL BARIUM SWALLOW CLINICAL INDICATION: DYSPHAGIA COMPARISON: No exams were available for comparison TECHNIQUE: In the upright position the patient was observed to swallow barium in both the AP and lateral view. The cervical esophagus was examined under fluoroscopy with images obtained. The patient was then placed prone in the right anterior oblique position and was observed to swallow barium with Valsalva technique . FLUOROSCOPY TIME: 1 minutes and 34 seconds FINDINGS: The upper and mid esophagus have an unremarkable appearance. There is no evidence of hiatal hernia. There is some mild persistent smooth narrowing of the distal esophagus which is nonspecific. A mild stricture is a consideration. IMPRESSION: 1. Mild narrowing of the distal esophagus at the GE junction raising the possibility of a mild stricture 2. Otherwise negative. 3. Consider upper endoscopy for further evaluation. Dictated by: Lewis Valles MD 02/23/2020 18:34 Lewis Valles MD in [place] 02/23/2020 18:34
== END ==
PROVIDERS: PCP Family Medicine; Visit Provider Physician Assistant
DX: R13.10 Dysphagia, unspecified (principal)
CPT/HCPCS: 74220

== ENCOUNTER → 2020-03-03 12:14 | Outpatient (CLI) | payer MEDICARE, SELFPAY ==
--- NOTE | 2020-03-03 12:24 | XR_ITS ---
PROCEDURE: XR KNEE RT 3V CLINICAL INDICATION: RT KNEE PAIN COMPARISON: CR KNEE3L KNEE-3 VIEWS-LT from 11/17/2015 CR KNEE3R KNEE-3 VIEWS-RT from 11/17/2015 FINDINGS: Moderate to severe osteoarthritic changes are present at the medial compartment and patellofemoral joint. There is lateral translation of the tibia by 10 mm. Loose body noted in the suprapatellar region measuring 10 mm. Other findings:None. IMPRESSION: Osteoarthritis with loose body in the suprapatellar region Dictated by: Lewis Valles MD 03/03/2020 16:26 Lewis Valles MD in [place] 03/03/2020 16:26
== END ==
PROVIDERS: PCP Physician Assistant; Visit Provider Physician Assistant
DX: M25.561 Pain in right knee (principal)
CPT/HCPCS: 73562

== ENCOUNTER → 2020-03-25 13:55 | Outpatient (CLI) | payer MEDICARE, SELFPAY ==
--- NOTE | 2020-03-25 14:03 | XR_ITS ---
PROCEDURE: XR KNEE RT 4V CLINICAL INDICATION: RT knee pain COMPARISON: CR KNEE3L KNEE-3 VIEWS-LT from 11/17/2015 CR KNEE3R KNEE-3 VIEWS-RT from 11/17/2015 CR XR KNEE RT 3V from 03/03/2020 FINDINGS: There are moderate to severe osteoarthritic changes involving all 3 compartments. There is mild lateral translation of the tibia by approximately 8 mm. Enthesophyte is noted along the superior patella. IMPRESSION: Severe osteoarthritic changes of the right knee as described above. Dictated by: Lewis Valles MD 03/25/2020 14:34 Lewis Valles MD in [place] 03/25/2020 14:34
== END ==
PROVIDERS: PCP Family Medicine; Visit Provider Orthopaedic Surgery
DX: M25.561 Pain in right knee (principal)
CPT/HCPCS: 73564

== ENCOUNTER → 2020-04-28 11:34 | Outpatient (CLI) | payer MEDICARE, SELFPAY ==
[2020-04-28 12:29] LABS: Basophils # 0.1 K/mm3 (0-0.2); Basophils % 0.5 % (0.1-2.0); Eosinophils # 0.3 K/mm3 (0.0-0.4); Eosinophils % 2.6 % (0.1-12.0); Hematocrit 34.9 % (37.0-47.0); Hemoglobin 10.6 g/dL (12.2-16.2); Lymphocytes # 2.6 K/mm3 (0.7-4.5); Lymphocytes % 23.2 % (10-50); Mean Corpuscular HGB Conc 30.3 g/dL (31.8-35.4); Mean Corpuscular Hemoglobin 26.3 pg (27.0-31.2); Mean Corpuscular Volume 86.7 fl (81-99); Mean Platelet Volume 7.7 fl (7.4-10.4); Monocytes # 0.7 K/mm3 (0.1-1.0); Monocytes % 6.3 % (1.7-9.3); Neutrophils # 7.7 K/mm3 (1.8-7.8); Neutrophils % 67.4 % (37.0-80.0); Platelet Count 254 K/mm3 (142-424); Red Blood Count 4.02 M/mm3 (4.20-5.40); Red Cell Distribution Width 16.7 % (11.5-17.5); White Blood Count 11.4 K/mm3 (4.8-10.8)
[2020-04-28 13:20] LABS: Blood Urea Nitrogen 18 mg/dl (7-17); Calcium 9.2 mg/dl (8.4-10.2); Carbon Dioxide 31 mmol/L (22.0-30.0); Chloride 101 mmol/L (98-107); Estimated Glomerular Filt Rate 50 ml/min (>60); GFR (African American) 61 ML/MIN (>60); Glucose 147 mg/dl (74-100); Sodium 141 mmol/L (136-145)
== END ==
PROVIDERS: PCP Family Medicine; Visit Provider Internal Medicine Cardiovascular Disease
DX: E78.2 Mixed hyperlipidemia (principal); I48.91 Unspecified atrial fibrillation; I50.9 Heart failure, unspecified; I11.0 Hypertensive heart disease with heart failure
CPT/HCPCS: 36415; 80048; 85025; U0003

== ENCOUNTER → 2020-05-11 14:29 | Outpatient (CLI) | payer MEDICARE, SELFPAY ==
[2020-05-11 16:21] LABS: Coronavirus 19 IgG Antibody Positive (Negative); Coronavirus 19 IgM Antibody Negative (Negative)
== END ==
PROVIDERS: Visit Provider Internal Medicine Gastroenterology
DX: Z01.812 Encounter for preprocedural laboratory examination (principal); Z20.822 Contact with and (suspected) exposure to COVID-19; Z13.810 Encounter for screening for upper gastrointestinal disorder
CPT/HCPCS: 36415; 86328

== ENCOUNTER 2020-05-13 08:24 | Day surgery (SDC) | payer MEDICARE, SELFPAY ==
[2020-05-10 11:26] VITALS: BMI 42.0
[2020-05-13] VITALS (8 sets, daily range): BP systolic 95–156; BP diastolic 43–74; PULSE 66–78; RESP 16–18; TEMP 36.5–36.8; O2SAT 93–98
[2020-05-13 08:58] LABS: POC Glucose,Bedside 193 (70-110)
--- NOTE | 2020-05-13 09:06 | HMH.ANESCL ---
[facility] Anesthesia Checklist - Patient Identification Patient Identification: Arm Band - Structural Data Admitted From: Home Planned Operative Procedure/s: EGD Consent for Planned Operative Procedure(s) Verified: Yes - NPO Status Verified Time NPO: 00:00 - Additional verifications Anesthesia Reactions: No - Airway Assessment C-Spine Mobility Assessed: Yes TMJ Mobility Assessed: Yes Dentition: Edentulous - Neurological Assessment Level of Consciousness: Awake Hx Seizures: No Numbness or tingling in extremities: No - Anesthesia Plan Anesthesia Risk discussed: Yes Anesthesia Plan: Verified ASA Class: III Anesthesia Type: MAC [facility] History I have reviewed the patient's past medical history: Yes Medical History: Reports:: Asthma, Atrial Fibrillation, Congestive Heart Failure, Chronic Obstructive Pulmonary Disease (COPD), Depression, Diabetes Mellitus Type 2, Hyperlipidemia, Hypertension Denies:: Cancer, Diabetes Mellitus Type 1, Internal Pacemaker, MRSA, Seizures *Have you ever received a pneumonia vaccine?: Yes *Have you received a flu vaccine this season?: No Other Medical History: Reports: Arthritis, Hypothyroidism Anesthesia experience/problems:: None Other Surgeries: Yes: Cardiac Catheterization, Cholecystectomy, Tubal Ligation, Other. No: Pacemaker Amputation: No Fractures: No - *Social History Last grade of school completed: Advanced degree Smoking Status: Never smoker #Yrs smoked (if former smoker): 8 Alcohol Intake: never Substance Use Type: denies use *Occupational Status:: retired Housing: house Household Members: family *Travel in the last 8 weeks: None - Psychiatric History Pschychiatric History:: Reports:: Depression Family Hx:: Cancer, Coronary Artery Disease, Diabetes, Hypertension, Stroke
--- NOTE | 2020-05-13 09:24 | P.PCN_ITS ---
[facility] Procedure Note Procedure Note:: Upper Endoscopy Procedure Report: Esophagogastroduodenoscopy with cold biopsies and TTS balloon dilation Endoscopost: Silas Marcelo II, MD Referring Physician: Latosha Huynh PA-C Date of Procedure: May 13, 2020 Equipment: Olympus GIF 190 standard upper endoscope Sedation: MAC sedation Indications: Mrs. Dunn is a 64-year-old female with dysphagia in the retrohyoid region. The patient has this 2 or 3 times a week. This began a couple of months ago. She reports no heartburn or reflux. She has had some belching and bloating. She reports no epigastric abdominal discomfort or weight loss. She has rare dyspepsia. She also reports mostly regular bowel function but does get some intermittent functional diarrhea. Procedure: Prior to the procedure, a history and physical exam was performed, and patient's medications and allergies were reviewed. The risks, benefits and alternatives of the sedation and procedure were discussed with the patient. All questions were answered and informed consent was obtained. The patient was brought to the procedure room. Patient identification and proposed procedure were verified by the physician and the nurse. The patient was placed in a left lateral decubitus position and the scope was passed under direct vision. Throughout the procedure, the patient's blood pressure, pulse, and oxygen saturations were monitored continuously. The upper GI endoscopy was accomplished without difficulty. The patient tolerated the procedure well. Findings: The scope was passed directly into the upper esophagus and advanced to the third portion of the duodenum. The post bulbar duodenum and duodenal bulb were normal with normal mucosa and conniventes. The scope was withdrawn through a normal duodenal bulb and pylorus into the stomach. There was evidence of some linear reactive gastropathy of the antrum with bile reflux. There was also evidence of some chronic nodular gastritis of the body and fundus of the stomach. Cold biopsies were taken separately from the antrum and formalin jar 1 and then a second set of biopsies were taken from the lesser and greater curvature of the body and fundus of the stomach and labeled chronic gastritis. There was no significant hiatal hernia. The scope was then withdrawn into the esophagus. There was a serrated Z-line. There was also some desquamation of the lining of the esophagus suggestive of esophageal parakeratosis. Cold biopsies were obtained. Less likely this would be esophageal dissecans mercedes perficialis. The entire esophagus was dilated to 60 Algerian/20 mm with a TTS hydrostatic balloon. There was some resistance at the cricopharyngeus. The scope was then withdrawn into the esophagus. The remainder of the esophageal mucosa was normal. Impression: 1. Cricopharyngeal spasm status post dilation to 20 mm 2. 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 Linear reactive gastropathy of antrum with chronic nodular gastritis of body and fundus?rule out H. pylori Plan: I will follow-up the biopsies. The patient should have clinical improvement with dilation. She should have clinical improvement. We will discuss other treatment options which may be based upon the pathology/histology.
--- NOTE | 2020-05-13 09:25 | HMH.ANESI ---
[facility] Anesthesia Record Part I Intake, IV Amount: 200 Estimated blood loss (mL): 0 Urine output (mL): 0 Blood Pressure: 117/60 SaO2: 93 Pulse Rate: 71 Respiratory Rate: 16 Temperature: 98.3 F Patient is:: Drowsy Stable to PACU at:: 09:23
--- NOTE | 2020-05-13 10:25 | P.PN_ITS ---
[facility] Anesthesia Record Part II Discharge Time: 09:53 Destination: Surgical Day Care (OP Surgery) PACU nurse assessment reviewed?: Yes Patient Condition:: Good Anesthesia Complications:: None Swallowing reflex intact?: Yes Cyanosis?: No Blood Pressure: 156/74 Pulse Rate: 66 Temperature: 98.2 F Mental Status: Alert & Oriented Pain level:: 0 Nausea and/or vomitting:: None Intake, IV Amount: 200
== END 2020-05-13 09:59 | disposition home or self-care (01) ==
LOC: OUTP 08:26
PROVIDERS: PCP Family Medicine; Visit Provider Internal Medicine Gastroenterology
PROC: 0DJ08ZZ Inspection of Upper Intestinal Tract, Via Natural or Artificial Opening Endoscopic (ICD-10-PCS; CPT 43235; principal; 2020-05-13 09:30)
DX: J39.2 Other diseases of pharynx (principal); K22.8 Other specified diseases of esophagus; K31.9 Disease of stomach and duodenum, unspecified; K29.50 Unspecified chronic gastritis without bleeding; J44.9 Chronic obstructive pulmonary disease, unspecified; E11.9 Type 2 diabetes mellitus without complications; I11.0 Hypertensive heart disease with heart failure; I50.9 Heart failure, unspecified; I48.91 Unspecified atrial fibrillation; E78.5 Hyperlipidemia, unspecified; M19.90 Unspecified osteoarthritis, unspecified site; E03.9 Hypothyroidism, unspecified
CPT/HCPCS: 43239; 43249; 82962; 88305; 88312; 88342; C1726

== ENCOUNTER → 2020-06-06 07:36 | Outpatient (CLI) | payer MEDICARE, SELFPAY ==
[2020-06-06 08:18] LABS: Basophils # 0.1 K/mm3 (0-0.2); Basophils % 0.4 % (0.1-2.0); Eosinophils # 0.3 K/mm3 (0.0-0.4); Hematocrit 32.4 % (37.0-47.0); Hemoglobin 10.2 g/dL (12.2-16.2); Lymphocytes # 2.5 K/mm3 (0.7-4.5); Lymphocytes % 21.6 % (10-50); Mean Corpuscular HGB Conc 31.4 g/dL (31.8-35.4); Mean Corpuscular Hemoglobin 25.6 pg (27.0-31.2); Mean Corpuscular Volume 81.5 fl (81-99); Monocytes # 0.5 K/mm3 (0.1-1.0); Monocytes % 4.7 % (1.7-9.3); Neutrophils # 8.1 K/mm3 (1.8-7.8); Neutrophils % 70.4 % (37.0-80.0); Platelet Count 276 K/mm3 (142-424); Red Blood Count 3.98 M/mm3 (4.20-5.40); Red Cell Distribution Width 16.3 % (11.5-17.5); White Blood Count 11.6 K/mm3 (4.8-10.8)
[2020-06-06 08:23] LABS: Hemoglobin A1C 8.3 % (4.0-6.0)
[2020-06-06 08:49] LABS: 25-OH Vitamin D, Total 41.7 ng/mL (30-100)
[2020-06-06 09:58] LABS: Alanine Aminotransferase 17 U/L (12-78); Albumin Level 3.9 g/dl (3.5-5.0); Albumin/Globulin Ratio 1.2 (1.1-1.8); Alkaline Phosphatase 81 U/L (38-126); Anion Gap 13.9 mEq/L (5-15); Aspartate Amino Transferase 37 U/L (14-36); Bilirubin,Total 0.5 mg/dl (0.2-1.3); Blood Urea Nitrogen 18 mg/dl (7-17); Calcium 9.2 mg/dl (8.4-10.2); Carbon Dioxide 29 mmol/L (22.0-30.0); Chloride 101 mmol/L (98-107); Chol/HDL Ratio 2.2 (1-3.5); Cholesterol 113 mg/dl (140-200); Estimated Glomerular Filt Rate 56 ml/min (>60); GFR (African American) 68 ML/MIN (>60); Globulin 3.2 g/dL (1.3-3.2); Glucose 132 mg/dl (74-100); HDL Cholesterol 52 mg/dl (40-60); Potassium 3.9 mmoL/L (3.5-5.1); Sodium 140 mmol/L (136-145); Total Protein,Serum 7.1 g/dl (6.3-8.2); Triglycerides 161 mg/dl (30-150); VLDL Cholesterol 32 mg/dL (0-40)
[2020-06-06 10:09] LABS: Direct LDL Cholesterol 35.25 mg/dL (100-129)
[2020-06-06 10:14] LABS: Free T4 (Free Thyroxine) 1.31 ng/dl (0.78-2.19)
[2020-06-06 10:27] LABS: Thyroid Stimulating Hormone 1.21 uIU/mL (0.465-4.68)
== END ==
PROVIDERS: Visit Provider Physician Assistant
DX: I10 Essential (primary) hypertension (principal); E03.9 Hypothyroidism, unspecified; E11.9 Type 2 diabetes mellitus without complications; E78.00 Pure hypercholesterolemia, unspecified; E55.9 Vitamin D deficiency, unspecified; D64.9 Anemia, unspecified; Z79.4 Long term (current) use of insulin
CPT/HCPCS: 36415; 80053; 80061; 82306; 83036; 84439; 84443; 85025

== ENCOUNTER → 2020-06-14 07:34 | Outpatient (CLI) | payer MEDICARE, SELFPAY ==
--- NOTE | 2020-06-14 | CA_ITS ---
APPROVED REPORT EXAM: Comprehensive 2D, Doppler, and color-flow Echocardiogram [employer] Educator: Adelaida Fox, RCS, RVS Ht: 5 ft 2 in Wt: 228lbs BSA: 2.02 HR: 63 bpm BP: 124/57 mmHg Indications: Pre-OP clearance, CM, A-fib, COPD, DM, HTN, SOB, Fatigue 2D Dimensions IVSd 1.13 cm LVEF (Visual) 29.60 % PWd 0.90 cm LA Volume 95.10 mL LVDd 5.23 cm LA Volume Index 47.10 mL/m2 (M/F) 16-34 LVDs 4.50 cm LVOT 1.98 cm (M/F) 1.5-2.5 M-Mode Dimensions LA Diam 4.27 cm (1.9-4.0) LVDd 5.79 cm (3.5-5.7) Ao Diam 2.88 cm (2.0-3.7) LVDs 4.51 cm (3.5-5.7) EF (Teich) 44.00% EPSs 1.41 cm FS 22.10% EDV (Teich) 165.90 mL TAPSE 2.02 (<1.7) ESV (Teich) 92.90 mL LV Diastology E Decel Time 243.00 (160-240 msec) E/A Ratio 1.07 MED E' 3.80 (< 7 cm/sec) MED A' 8.50 cm/s E'/MED E' Ratio 30.66 (>14) LAT E' 6.80 (<10 cm/sec) LAT A' 10.90 cm/s E/LAT E' Ratio 17.13 (>14) Aortic Valve LVOT Max 80.00 (70-110 cm/s) LVOT VTI 20.63 cm AoV Peak Roldan. 183.00 (50-130 cm/s) AI PHT 673.00 ms AO Peak GR. 13.30 mmHg AO Mean GR. 7.80 (<5 mmHg) AO VTI 41.56 (18-25 cm) JESSI (VTI) 1.53 (2.5-4.5 cm2) Mitral Valve MV A Velocity 109.00 (40-130 cm/s) E/A Ratio 1.07 MV Decel. Time 243.00 (160-240 ms) Pulmonary Valve PV Peak Velocity 76.00 (50-150 cm/s) Tricuspid Valve TR P. Velocity 204.00 cm/s RAP Estimate 10.00 mmHg RVSP 26.70 mmHg Left Ventricle Left atrium is mildly enlarged, left ventricle is mildly dilated, there is reduced left ventricular systolic function, visually estimated ejection fraction 40% with no obvious regional wall motion abnormality, endocardial surfaces are poorly visualized, if clinically indicated repeat study with Definity contrast is recommended. Grade 2 diastolic dysfunction seen with tissue Doppler evidence of raise left atrial pressure. Right Ventricle Right atrium and right ventricle are normal size and contractility. Aortic Valve Aortic valve is thickened and calcified without aortic stenosis, there is mild aortic insufficiency. Mitral Valve Mitral valve is grossly normal, there is mild mitral regurgitation. Tricuspid Valve Tricuspid grossly normal, there is mild tricuspid regurgitation, tricuspid regurgitation jet velocity is inadequate for calculation of the right ventricular systolic pressure. Pulmonic Valve Pulmonic valve is poorly visualized. Great Vessels Aortic root is normal size. Pericardium No significant pericardial effusion noted. Conclusion 1. Mildly enlarged left atrium, mildly dilated left ventricle, visually estimated ejection fraction 40% left ventricle is globally hypokinetic, grade 2 diastolic dysfunction seen with tissue Doppler evidence of raise left atrial pressure. Endocardial surfaces are poorly visualized, if clinically indicated repeat study with Definity contrast is recommended. 2. Mild mitral and tricuspid regurgitation. 3. No significant pericardial effusion noted. 4. Thickened and calcified aortic valve without aortic stenosis, there is mild aortic insufficiency. Electronically signed by : Daniel Pyle, 06/14/2020 19:07:07
== END ==
PROVIDERS: PCP Family Medicine; Visit Provider Internal Medicine Cardiovascular Disease
DX: Z01.810 Encounter for preprocedural cardiovascular examination (principal)
CPT/HCPCS: 93306

== ENCOUNTER → 2020-10-27 11:28 | Outpatient (CLI) | payer MEDICARE, SELFPAY ==
--- NOTE | 2020-10-27 | ECG_ITS ---
APPROVED REPORT Exam: Resting ECG HR:55 bpm ECG Measurements Heart Rate 55 AXES MS 176 P 38 QRSd 134 QRS 120 QT 512 T -27 QTc 489 Conclusion Sinus bradycardia with occasional premature ventricular complexes Right axis deviation Nonspecific intraventricular block Abnormal QRS-T angle, consider primary T wave abnormality Abnormal ECG Electronically signed by : Torsten Amado MD 10/28/2020 10:54:29
--- NOTE | 2020-10-27 11:37 | XR_ITS ---
PROCEDURE: XR CHEST 2V CLINICAL HISTORY: HX OF HIGH BLOOD PRESSURE, PRE-OPERATIVE COMPARISON: CR CXR CHEST(2 VIEWS-NOT PORTABLE) from 12/16/2013 CT CTAC CTA-CHEST from 07/20/2015 CR CXR CHEST(2 VIEWS-NOT PORTABLE) from 04/28/2016 CR CXR CHEST(2 VIEWS-NOT PORTABLE) from 11/12/2016 FINDINGS: Cardiomegaly without failure. The lungs are clear without infiltrates, suspicious nodules, or pleural effusions. No acute bony abnormalities. IMPRESSION: Cardiomegaly otherwise negative. Dictated by: Lewis Valles MD 10/27/2020 12:51 Lewis Valles MD in [place] 10/27/2020 12:51
== END ==
PROVIDERS: PCP Family Medicine; Visit Provider Physician Assistant
DX: Z01.818 Encounter for other preprocedural examination (principal)
CPT/HCPCS: 71046; 93005

== ENCOUNTER 2020-11-02 16:36 | Emergency (ER) | payer MEDICARE, SELFPAY ==
[2020-11-02 16:37] VITALS: BP 113/56; PULSE 64; RESP 18; TEMP 36.8; O2SAT 98; BMI 38.7
--- NOTE | 2020-11-02 16:46 | XR_ITS ---
PROCEDURE INFORMATION: Exam: XR Right Hip Exam date and time: 11/02/2020 4:46 PM Age: 65 years old Clinical indication: Hip pain; Patient HX: Pain in right hip x a few days, worsening today TECHNIQUE: Imaging protocol: XR Right hip. Views: 2 or 3 views hip with pelvis when performed. COMPARISON: CR [id number] HIP RT 2-3V W/PELVIS IF PERFOR 11/17/2015 1:12 PM FINDINGS: Bones/joints: No acute fracture or dislocation. Mild degenerative cortical irregularity of the right and left acetabula, at the hip joints. Minimal bilateral enthesopathy of the greater trochanters of the femurs, and some minimal enthesopathy of the pelvic bones. Lower lumbar degenerative changes, disc narrowing and spondylosis greatest toward the left at L4-L5, and toward the right at L3-L4.There are no lytic skeletal lesions seen. Soft tissues: No acute findings. No radiopaque foreign bodies. No pathologic soft tissue calcification. Gastrointestinal tract: Punctate dense material in the left colon. No dilated bowel loops, as visualized. IMPRESSION: 1. No acute fracture or dislocation. 2. Minimal degenerative changes of the hip joints, chronic compared with 2016. 3. Worsened degenerative disc disease and spondylosis in the lower lumbar spine compared with 2016.
--- NOTE | 2020-11-02 16:46 | XR_ITS ---
PROCEDURE INFORMATION: Exam: XR Right Femur Exam date and time: 11/02/2020 4:46 PM Age: 65 years old Clinical indication: Right; Patient HX: Pain at mid thigh, worsening today TECHNIQUE: Imaging protocol: XR Right femur. Views: 2 views. COMPARISON: CR XR HIP RT 2-3V W/PELVIS 11/02/2020 4:55 PM FINDINGS: Bones/joints: No acute fracture or dislocation. Chronic appearing cortical-periosteal thickening of posterior femoral diaphysis, likely chronic stress reaction or old healed trauma. There are no lytic skeletal lesions seen. Chronic arthritic changes at the knee joint, please see the knee x-ray report for details. Soft tissues: No acute findings. Chronic dystrophic soft tissue calcifications at the knee. IMPRESSION: 1. No femur fracture, dislocation or lytic tumor. 2. Arthritic changes at the knee.
--- NOTE | 2020-11-02 16:47 | XR_ITS ---
PROCEDURE INFORMATION: Exam: XR Right Tibia and Fibula Exam date and time: 11/02/2020 4:47 PM Age: 65 years old Clinical indication: Right; Patient HX: Pain in lower leg x a few days, worsening today TECHNIQUE: Imaging protocol: XR Right tibia and fibula. Views: 2 views. COMPARISON: CR XR KNEE RT 3V 11/02/2020 5:01 PM FINDINGS: Bones/joints: No acute fracture or dislocation. Chronic areas of cortical-periosteal thickening in the proximal tibial and fibular diametaphysis, and chronic cortical irregularity of the posterior proximal tibial diaphysis seen on the lateral view. These findings are unchanged compared with 03/25/2020.There are no lytic skeletal lesions seen. A chronic os trigonum versus old posterior talar avulsion injury. Please see the foot x-ray report for detailed foot and ankle findings, and see the knee x-ray report for detailed findings at the knee. Soft tissues: Pretibial swelling.No radiopaque foreign bodies seen. No soft tissue emphysema. IMPRESSION: 1. No acute fracture or dislocation. 2. Chronic degenerative changes. 3. Mild proximal pretibial swelling.
--- NOTE | 2020-11-02 16:47 | XR_ITS ---
PROCEDURE INFORMATION: Exam: XR Right Knee Exam date and time: 11/02/2020 4:47 PM Age: 65 years old Clinical indication: Right; Patient HX: Chronic pain in knee, worsening the last few days TECHNIQUE: Imaging protocol: XR Right knee. Views: 3 views. COMPARISON: CR XR KNEE RT 4V 03/25/2020 2:06 PM FINDINGS: Bones/joints: No acute fracture or dislocation. Severe chronic arthritic changes, severe narrowing of the medial knee joint space with prominent periarticular spurs. Minimal narrowing of the lateral knee joint space, but there are large lateral femoral and tibial periarticular osteophytes, and there is slight chondrocalcinosis in the lateral compartment. Chronic patellofemoral osteoarthrosis with a 1 cm ossicle abutting the superior pole of the patella which could be loose body, versus irregular spur and degenerative soft tissue calcification. Femoral spurs at the patellofemoral joint, better seen on the patient's prior exam. Knee joint effusion. Osteopenia. Chronic cortical-periosteal thickening of the tibial and fibular diametaphysis. Soft tissues: Increased pretibial soft tissue edema and swelling, ovoid 3.6 cm density in Hoffa's infrapatellar fat pad, correlate for contusion or synovitis. No soft tissue emphysema. No radiopaque foreign bodies seen. IMPRESSION: 1. Chronic severe 3 compartment osteoarthrosis and chondromalacia of the knee as detailed above. 2. No acute fracture or dislocation. 3. Significantly enlarged knee joint effusion compared with the prior study. 4. New infrapatellar and pretibial soft tissue swelling, correlate for contusion or synovitis.
--- NOTE | 2020-11-02 16:48 | XR_ITS ---
PROCEDURE INFORMATION: Exam: XR Right Foot Exam date and time: 11/02/2020 4:48 PM Age: 65 years old Clinical indication: Right; Patient HX: Pain in foot for a few days TECHNIQUE: Imaging protocol: XR Right foot. Views: 3 or more views. COMPARISON: CR XR TIBIA FIBULA RT 2V 11/02/2020 5:02 PM FINDINGS: Bones/joints: Ovoid well corticated 8 mm ossicle at the posterior talus, likely developmental os trigonum, versus an old avulsion injury. Degenerative spurring at the anterior distal tibia. Plantar and Achilles calcaneal spurs. There is a bipartite lateral hallux sesamoid bone, the ossicles appear smoothly corticated on oblique series 3, suggesting either developmental bipartite sesamoid versus an old stress fracture. This does not have the appearance of an acute injury. No dislocation.There are no lytic skeletal lesions seen. Minimal arthritis at the 1st MTP joint with lateral 1st metatarsal head spurs. Degenerative spurs of the medial malleolus. Chronic appearing cortical-periosteal thickening of the distal fibular metaphysis, likely chronic stress reaction. Soft tissues: Slight soft tissue swelling.No definite radiopaque foreign bodies seen. Some minimal debris on the skin or minimal skin calcifications at the plantar foot and 3rd toe seen on oblique series 3. No soft tissue emphysema. Vasculature: Faintly calcified atherosclerotic plaques noted posterior to the ankle. IMPRESSION: 1. No acute fracture , dislocation or signs of osteomyelitis. 2. Chronic degenerative or old posttraumatic changes, as above. 3. Atherosclerotic disease.
[2020-11-02 16:53] LABS: Basophils % 0.3 % (0.1-2.0); Eosinophils # 0.1 K/mm3 (0.0-0.4); Eosinophils % 0.7 % (0.1-12.0); Hematocrit 34.6 % (37.0-47.0); Hemoglobin 11.1 g/dL (12.2-16.2); Lymphocytes # 2.9 K/mm3 (0.7-4.5); Lymphocytes % 18.1 % (10-50); Mean Corpuscular Volume 81.1 fl (81-99); Mean Platelet Volume 7.5 fl (7.4-10.4); Monocytes # 0.9 K/mm3 (0.1-1.0); Monocytes % 5.8 % (1.7-9.3); Neutrophils # 12.1 K/mm3 (1.8-7.8); Neutrophils % 75.1 % (37.0-80.0); Platelet Count 336 K/mm3 (142-424); Red Blood Count 4.27 M/mm3 (4.20-5.40); Red Cell Distribution Width 16.9 % (11.5-17.5); White Blood Count 16.1 K/mm3 (4.8-10.8)
[2020-11-02 16:59] LABS: Alanine Aminotransferase 14 U/L (12-78); Alkaline Phosphatase 90 U/L (38-126); Anion Gap 15.6 mEq/L (5-15); Aspartate Amino Transferase 22 U/L (14-36); Bilirubin,Total 1.4 mg/dl (0.2-1.3); Blood Urea Nitrogen 26 mg/dl (7-17); Carbon Dioxide 28 mmol/L (22.0-30.0); Chloride 94 mmol/L (98-107); Creatinine Clearance Estimated 58 mL/min (50-200); Estimated Glomerular Filt Rate 35 ml/min (>60); GFR (African American) 42 ML/MIN (>60); Globulin 4.2 g/dL (1.3-3.2); Glucose 153 mg/dl (74-100); Sodium 135 mmol/L (136-145); Total Protein,Serum 8.2 g/dl (6.3-8.2)
[2020-11-02 17:04] LABS: C-Reactive Protein 149.9 mg/L (0-4); Potassium 2.6 mmoL/L (3.5-5.1)
[2020-11-02 17:21] LABS: MANUAL DIFFERENTIAL MANUAL DIFFERENTIAL (MANUAL DIFF)
[2020-11-02 17:31] VITALS: BP 122/62; PULSE 59; RESP 18; O2SAT 100
[2020-11-02 18:01] VITALS: BP 129/61; PULSE 56; O2SAT 100
[2020-11-02 18:10] LABS: Lymphocytes % 20 % (10-50); Microcytosis 1+; Monocytes % 8 % (2-9); Neutrophils % 72 % (42-76); Platelet Estimate Normal; Total Cells Counted 100
[2020-11-02 18:16] LABS: Erythrocyte Sedimentation Rate > 140 mm/hr (0-30)
[2020-11-02 18:31] VITALS: BP 126/58; PULSE 63; O2SAT 99
--- NOTE | 2020-11-02 19:30 | HMH.EDGENADL ---
ED Disposition Clinical Impression: Hypokalemia Disposition: Home, Self-Care Condition on Discharge: Good Additional Instructions: Take 4 potassium tablets tonight at bedtime. Take an additional 4 tablets in the morning. Call your PCP for follow-up in the morning. Referrals: Marciano Ortiz MD [Primary Care Provider] - 11/03/20 (Call for appointment in the morning) Time of Disposition: 19:34 - Critical Care Critical Care Time: No Attestation: On 11/02/20, the high probability of a clinically significant, sudden or life threatening deterioration of the following system(s) required my full and direct attention, intervention and personal management. The time I documented below is in addition to time spent performing reported procedures but includes the following listed in this critical care notation. Medical Decision Making - Medical Records Medical records reviewed: Yes: I reviewed the patient's medical records. - Mark Inquiry Pt receiving controlled substance: No Vital Signs: 11/02/20 16:37 11/02/20 17:31 11/02/20 18:01 Temperature 98.3 F Temperature Source Oral Pulse Rate 59 L 56 L Pulse Rate [Radial] 64 Respiratory Rate 18 18 Blood Pressure 122/62 129/61 Blood Pressure [Right Arm] 113/56 L Blood Pressure Mean 82 83 Blood Pressure Mean [Right Arm] 75 Blood Pressure Position [Right Arm] Sitting 02 Sat by Pulse Oximetry 98 100 100 Oxygen Delivery Method Room Air Room Air 11/02/20 18:31 Temperature Temperature Source Pulse Rate 63 Pulse Rate [Radial] Respiratory Rate Blood Pressure 126/58 L Blood Pressure [Right Arm] Blood Pressure Mean 80 Blood Pressure Mean [Right Arm] Blood Pressure Position [Right Arm] 02 Sat by Pulse Oximetry 99 Oxygen Delivery Method - Lab Data Lab results reviewed: Yes: I reviewed the patient's lab results. Lab Results 11/02/20 16:44: WBC 16.1 H, RBC 4.27, Hgb 11.1 L, Hct 34.6 L, MCV 81.1, MCH 26.0 L, MCHC 32.0, RDW 16.9, Plt Count 336, MPV 7.5, Neut % (Auto) 75.1, Lymph % (Auto) 18.1, Childress % (Auto) 5.8, Eos % (Auto) 0.7, Baso % (Auto) 0.3, Neut # (Auto) 12.1 H, Lymph # (Auto) 2.9, Childress # (Auto) 0.9, Eos # (Auto) 0.1, Baso # (Auto) 0.0, Total Counted 100, Neutrophils % (Manual) 72, Lymphocytes % (Manual) 20, Monocytes % (Manual) 8, Platelet Estimate Normal, Microcytosis 1+, ESR > 140 H 11/02/20 16:44: Sodium 135 L, Potassium 2.6 L*, Chloride 94 L, Carbon Dioxide 28, Anion Gap 15.6 H, BUN 26 H, Creatinine 1.50 H, Estimated Creat Clear 58, Estimated GFR 35 L, Est GFR ( Amer) 42 L, Glucose 153 H, Calcium 9.0, Total Bilirubin 1.4 H, AST 22, ALT 14, Alkaline Phosphatase 90, C-Reactive Protein 149.9 H, Total Protein 8.2, Albumin 4.0, Globulin 4.2 H, Albumin/Globulin Ratio 1.0 L Result diagrams: 11/02/20 16:44 11/02/20 16:44 Orders (Tests/Meds): ED MEDICATIONS Generic Name Dose Route Start Last Admin Trade Name Freq PRN Reason Stop Dose Admin Sodium Chloride 1,000 mls @ 999 mls/hr 11/02/20 19:00 11/02/20 18:54 Sod Chlor 0.9% 1000ml Bag IV 11/02/20 20:00 999 mls/hr .Q1H1M FARHAN Administration Discontinued Medications Generic Name Dose Route Start Last Admin Trade Name Freq PRN Reason Stop Dose Admin Hydromorphone HCl 0.5 mg 11/02/20 18:54 11/02/20 18:54 Hydromorphone 2mg/Ml Syringe IV 11/02/20 18:55 0.5 mg ONCE ONE Administration Ondansetron HCl 4 mg 11/02/20 18:53 11/02/20 18:55 Ondansetron 4mg/2ml Vial IV 11/02/20 18:54 4 mg ONCE ONE Administration Potassium Chloride 40 meq 11/02/20 18:40 11/02/20 18:44 Potassium Chloride 20meq/15ml Udc PO 11/02/20 18:41 40 meq ONCE ONE Administration - Radiology Data #1 Image(s): Hip, Femur, Knee, Tib/Fib, Ankle, Foot/Toes No acute findings any x-rays Medical Decision Narrative: 65yo F evaluated for general malaise. Patient is in no acute distress on initial evaluation. She is pleasant conversant. Her vital signs are unremarkabl
[2020-11-02 20:45] VITALS: BP 124/72; PULSE 63; RESP 18; TEMP 36.8; O2SAT 99
== END 2020-11-02 20:47 | disposition home or self-care (01) ==
PROVIDERS: Emergency Provider Family Medicine; PCP Family Medicine
DX: E87.6 Hypokalemia (principal); R19.7 Diarrhea, unspecified; Z79.4 Long term (current) use of insulin; Z79.899 Other long term (current) drug therapy
CPT/HCPCS: 73502; 73552; 73562; 73590; 73630; 80053; 85007; 85025; 85651; 86140; 96365; 96375; 99282; J2405

== ENCOUNTER → 2020-11-04 14:17 | Outpatient (CLI) | payer MEDICARE, SELFPAY ==
[2020-11-04 15:02] LABS: Basophils # 0.1 K/mm3 (0-0.2); Basophils % 0.5 % (0.1-2.0); Eosinophils # 0.2 K/mm3 (0.0-0.4); Eosinophils % 1.2 % (0.1-12.0); Hemoglobin 10.9 g/dL (12.2-16.2); Lymphocytes # 3.1 K/mm3 (0.7-4.5); Lymphocytes % 17.8 % (10-50); Mean Corpuscular HGB Conc 31.1 g/dL (31.8-35.4); Mean Corpuscular Hemoglobin 25.4 pg (27.0-31.2); Mean Corpuscular Volume 81.6 fl (81-99); Mean Platelet Volume 7.8 fl (7.4-10.4); Monocytes % 5.7 % (1.7-9.3); Neutrophils # 13.1 K/mm3 (1.8-7.8); Neutrophils % 74.9 % (37.0-80.0); Platelet Count 458 K/mm3 (142-424); Red Blood Count 4.29 M/mm3 (4.20-5.40); Red Cell Distribution Width 17.2 % (11.5-17.5); White Blood Count 17.4 K/mm3 (4.8-10.8)
[2020-11-04 15:25] LABS: MANUAL DIFFERENTIAL MANUAL DIFFERENTIAL (MANUAL DIFF)
[2020-11-04 15:40] LABS: Alanine Aminotransferase 12 U/L (12-78); Albumin Level 3.7 g/dl (3.5-5.0); Albumin/Globulin Ratio 0.9 (1.1-1.8); Alkaline Phosphatase 104 U/L (38-126); Aspartate Amino Transferase 28 U/L (14-36); Blood Urea Nitrogen 19 mg/dl (7-17); Calcium 9.1 mg/dl (8.4-10.2); Carbon Dioxide 26 mmol/L (22.0-30.0); Chloride 99 mmol/L (98-107); Estimated Glomerular Filt Rate 50 ml/min (>60); GFR (African American) 61 ML/MIN (>60); Globulin 3.9 g/dL (1.3-3.2); Glucose 101 mg/dl (74-100); Sodium 138 mmol/L (136-145); Total Protein,Serum 7.6 g/dl (6.3-8.2)
[2020-11-04 18:17] LABS: Eosinophils % 2 % (0-3); Lymphocytes % 18 % (10-50); Monocytes % 3 % (2-9); Neutrophils % 75 % (42-76); Total Cells Counted 100
[2020-11-04 18:18] LABS: Hypochromasia 1+; Platelet Estimate Slight Increase; Rouleaux 2+
[2020-11-04 20:31] LABS: Erythrocyte Sedimentation Rate 38 mm/hr (0-30)
[2020-11-06 07:56] LABS: RA Latex Turbid. 20.4 IU/mL (0.0-13.9)
[2020-11-07 20:13] LABS: Antinuclear Antibodies, IFA Negative (.)
== END ==
PROVIDERS: PCP Physician Assistant; Visit Provider Physician Assistant
DX: Z20.822 Contact with and (suspected) exposure to COVID-19 (principal); D72.828 Other elevated white blood cell count; M25.50 Pain in unspecified joint; E78.5 Hyperlipidemia, unspecified
CPT/HCPCS: 36415; 80053; 84550; 85007; 85025; 85651; 86038; 86431; C9803; U0003; U0005

== ENCOUNTER → 2020-11-11 14:36 | Outpatient (CLI) | payer MEDICARE, SELFPAY ==
[2020-11-11 14:41] LABS: Microscopic, Urine URINE MICROSCOPIC (MICROSCOPIC)
[2020-11-11 14:56] LABS: Appearance,Urine CLEAR (Clear); Bilirubin,Urine Negative (Negative); Blood, Urine Negative (Negative); Color,Urine YELLOW (Yellow); Glucose,Urine (UA) 3+ (Negative); Ketones,Urine Negative (Negative); Leukocyte Esterase,Urine TRACE (Negative); Nitrate,Urine Negative (Negative); Protein,Urine Negative (Negative); Specific Gravity, Urine >= 1.030 (1.005-1.030); Urobilinogen,Urine 0.2 EU/dl (0.2)
[2020-11-11 15:12] LABS: Basophils # 0.1 K/mm3 (0-0.2); Basophils % 0.6 % (0.1-2.0); Eosinophils # 0.3 K/mm3 (0.0-0.4); Eosinophils % 2.7 % (0.1-12.0); Hematocrit 34.2 % (37.0-47.0); Hemoglobin 10.5 g/dL (12.2-16.2); Lymphocytes # 2.9 K/mm3 (0.7-4.5); Lymphocytes % 27.8 % (10-50); Mean Corpuscular HGB Conc 30.7 g/dL (31.8-35.4); Mean Corpuscular Hemoglobin 25.5 pg (27.0-31.2); Mean Corpuscular Volume 83.2 fl (81-99); Mean Platelet Volume 8.1 fl (7.4-10.4); Monocytes # 0.6 K/mm3 (0.1-1.0); Monocytes % 5.9 % (1.7-9.3); Neutrophils # 6.7 K/mm3 (1.8-7.8); Platelet Count 395 K/mm3 (142-424); Red Blood Count 4.11 M/mm3 (4.20-5.40); Red Cell Distribution Width 17.6 % (11.5-17.5); White Blood Count 10.6 K/mm3 (4.8-10.8)
[2020-11-11 15:57] LABS: Bacteria,Urine Trace /lpf
== END ==
PROVIDERS: Visit Provider Physician Assistant
DX: D72.829 Elevated white blood cell count, unspecified (principal)
CPT/HCPCS: 36415; 81001; 85025

== ENCOUNTER → 2020-12-05 13:55 | Outpatient (CLI) | payer MEDICARE, SELFPAY ==
[2020-12-05 14:26] LABS: Basophils # 0.1 K/mm3 (0-0.2); Basophils % 0.7 % (0.1-2.0); Eosinophils # 0.4 K/mm3 (0.0-0.4); Eosinophils % 3.6 % (0.1-12.0); Hematocrit 34.9 % (37.0-47.0); Hemoglobin 10.8 g/dL (12.2-16.2); Lymphocytes % 24.2 % (10-50); Mean Corpuscular HGB Conc 31.1 g/dL (31.8-35.4); Mean Corpuscular Hemoglobin 26.1 pg (27.0-31.2); Mean Platelet Volume 8.4 fl (7.4-10.4); Monocytes # 0.7 K/mm3 (0.1-1.0); Monocytes % 5.4 % (1.7-9.3); Neutrophils # 8.1 K/mm3 (1.8-7.8); Neutrophils % 66.2 % (37.0-80.0); Platelet Count 337 K/mm3 (142-424); Red Blood Count 4.15 M/mm3 (4.20-5.40); Red Cell Distribution Width 17.4 % (11.5-17.5); White Blood Count 12.2 K/mm3 (4.8-10.8)
[2020-12-05 15:37] LABS: 25-OH Vitamin D, Total 48.9 ng/mL (30-100)
[2020-12-05 16:38] LABS: Folate > 20.00 ng/mL; Vitamin B12 > 1000 pg/mL (239-931)
[2020-12-05 19:11] LABS: Chloride 101 mmol/L (98-107); Potassium 4.6 mmoL/L (3.5-5.1); Sodium 140 mmol/L (136-145)
[2020-12-05 19:14] LABS: Alanine Aminotransferase 14 U/L (12-78); Albumin Level 3.8 g/dl (3.5-5.0); Albumin/Globulin Ratio 1.2 (1.1-1.8); Alkaline Phosphatase 84 U/L (38-126); Anion Gap 16.6 mEq/L (5-15); Aspartate Amino Transferase 28 U/L (14-36); Bilirubin,Total 0.4 mg/dl (0.2-1.3); Blood Urea Nitrogen 14 mg/dl (7-17); Calcium 8.7 mg/dl (8.4-10.2); Carbon Dioxide 27 mmol/L (22.0-30.0); Estimated Glomerular Filt Rate 56 ml/min (>60); GFR (African American) 68 ML/MIN (>60); Globulin 3.3 g/dL (1.3-3.2); Glucose 125 mg/dl (74-100); Iron 44 ug/dL (37-170); Total Protein,Serum 7.1 g/dl (6.3-8.2)
[2020-12-05 19:23] LABS: Total Iron Binding Capacity 329 ug/dL (265-497)
== END ==
PROVIDERS: Visit Provider Physician Assistant
DX: D64.9 Anemia, unspecified (principal); N28.9 Disorder of kidney and ureter, unspecified; E66.9 Obesity, unspecified; Z68.41 Body mass index [BMI] 40.0-44.9, adult
CPT/HCPCS: 36415; 80053; 82306; 82607; 82746; 83540; 83550; 85025; 85044

== ENCOUNTER → 2020-12-12 11:06 | Outpatient (CLI) | payer MEDICARE, SELFPAY ==
[2020-12-12 11:09] LABS: Microscopic, Urine URINE MICROSCOPIC (MICROSCOPIC)
[2020-12-12 11:36] LABS: Appearance,Urine CLEAR (Clear); Bilirubin,Urine Negative (Negative); Blood, Urine Negative (Negative); Color,Urine YELLOW (Yellow); Glucose,Urine (UA) 3+ (Negative); Ketones,Urine Negative (Negative); Leukocyte Esterase,Urine TRACE (Negative); Nitrate,Urine Negative (Negative); Protein,Urine Negative (Negative); Specific Gravity, Urine 1.025 (1.005-1.030); Urobilinogen,Urine 0.2 EU/dl (0.2)
[2020-12-12 11:50] LABS: Bacteria,Urine Trace /lpf; RBC,Urine Occasional #/hpf (0-3); Squamous Epithelial Cell,Urine Occasional #/hpf (0-5)
== END ==
PROVIDERS: Visit Provider Physician Assistant
DX: D72.829 Elevated white blood cell count, unspecified (principal); R82.90 Unspecified abnormal findings in urine
CPT/HCPCS: 81001; 87086; 87088; 87186

== ENCOUNTER → 2020-12-19 16:22 | Outpatient (CLI) | payer MEDICARE, SELFPAY ==
[2020-12-19 17:08] LABS: Basophils # 0.1 K/mm3 (0-0.2); Basophils % 0.4 % (0.1-2.0); Eosinophils # 0.3 K/mm3 (0.0-0.4); Eosinophils % 2.2 % (0.1-12.0); Hematocrit 31.5 % (37.0-47.0); Hemoglobin 9.7 g/dL (12.2-16.2); Lymphocytes # 3.4 K/mm3 (0.7-4.5); Lymphocytes % 23.1 % (10-50); Mean Corpuscular HGB Conc 30.9 g/dL (31.8-35.4); Mean Corpuscular Volume 84.1 fl (81-99); Mean Platelet Volume 8.6 fl (7.4-10.4); Monocytes # 0.8 K/mm3 (0.1-1.0); Monocytes % 5.4 % (1.7-9.3); Neutrophils # 10.3 K/mm3 (1.8-7.8); Platelet Count 381 K/mm3 (142-424); Red Blood Count 3.74 M/mm3 (4.20-5.40); White Blood Count 14.9 K/mm3 (4.8-10.8)
[2020-12-19 17:40] LABS: Erythrocyte Sedimentation Rate 125 mm/hr (0-30)
[2020-12-19 17:51] LABS: Alanine Aminotransferase 16 U/L (12-78); Albumin Level 3.7 g/dl (3.5-5.0); Albumin/Globulin Ratio 1.1 (1.1-1.8); Alkaline Phosphatase 84 U/L (38-126); Anion Gap 13.3 mEq/L (5-15); Aspartate Amino Transferase 29 U/L (14-36); Bilirubin,Total 0.4 mg/dl (0.2-1.3); Blood Urea Nitrogen 16 mg/dl (7-17); Calcium 8.7 mg/dl (8.4-10.2); Carbon Dioxide 29 mmol/L (22.0-30.0); Chloride 97 mmol/L (98-107); Estimated Glomerular Filt Rate 56 ml/min (>60); GFR (African American) 68 ML/MIN (>60); Globulin 3.5 g/dL (1.3-3.2); Glucose 116 mg/dl (74-100); Potassium 3.3 mmoL/L (3.5-5.1); Sodium 136 mmol/L (136-145); Total Protein,Serum 7.2 g/dl (6.3-8.2)
[2020-12-19 17:56] LABS: C-Reactive Protein 13.9 mg/L (0-4)
[2020-12-19 18:03] LABS: Intact Parathyroid Hormone 95.8 pg/mL (7.5-53.5)
[2020-12-19 18:08] LABS: Free T4 (Free Thyroxine) 1.38 ng/dl (0.78-2.19)
[2020-12-19 18:22] LABS: Thyroid Stimulating Hormone 0.54 uIU/mL (0.465-4.68)
[2020-12-19 21:03] LABS: 25-OH Vitamin D, Total 43.6 ng/mL (30-100)
[2020-12-21 11:12] LABS: RA Latex Turbid. <10.0 IU/mL (0.0-13.9)
[2020-12-21 16:12] LABS: Calcium, Ionized 4.8 mg/dL (4.5-5.6)
[2020-12-22 00:08] LABS: Anti-Cyclic Citrullinated Pept 12 units (0-19)
== END ==
PROVIDERS: Visit Provider Internal Medicine Rheumatology
DX: M11.20 Other chondrocalcinosis, unspecified site (principal); R53.83 Other fatigue; R76.9 Abnormal immunological finding in serum, unspecified; Z68.41 Body mass index [BMI] 40.0-44.9, adult; Z79.899 Other long term (current) drug therapy; E66.9 Obesity, unspecified
CPT/HCPCS: 36415; 80053; 82306; 82330; 83970; 84439; 84443; 84550; 85025; 85651; 86140; 86200; 86431

== ENCOUNTER 2021-01-31 11:00 | Emergency (ER) | payer MEDICARE, SELFPAY ==
[2021-01-31 12:57] VITALS: BP 131/75; PULSE 60; RESP 14; TEMP 36.5; O2SAT 97; BMI 37.8
--- NOTE | 2021-01-31 13:20 | HMH.EDUTC ---
[facility] [place] Disposition Clinical Impression: Insect bite or sting Disposition: Home, Self-Care Condition on Discharge: Good Instructions: DI for Insect Bites and Stings Additional Instructions: Resume your oral steroids tomorrow. Start taking the benedryl and other medications we prescribed. Follow up with your primary care physician. GO TO THE ER FOR ANY WORSENING SYMPTOMS, ESPECIALLY ANY EYE PAIN, CHANGES IN YOUR VISION OR OTHER ISSUES Prescriptions: diphenhydrAMINE HCL [Diphenhydramine HCl] 25 mg PO Q6HP PRN #30 cap PRN Reason: Itching Transmission Status: Received by [facility] Famotidine [Pepcid 20mg Tablet] 20 mg PO BID 14 Days #28 tab Transmission Status: Received by [employer] Cetirizine HCl [Zyrtec] 10 mg PO DAILY 14 Days #14 cap Transmission Status: Received by [facility] Referrals: Marciano Ortiz MD [Primary Care Provider] - Time of Disposition: 13:33 Medical Decision Making - Medical Records Medical records reviewed: No: I reviewed the patient's medical records. - Mark Inquiry Pt receiving controlled substance: No Vital Signs: 01/31/21 12:57 01/31/21 14:46 Temperature 97.7 F 97.7 F Temperature Source Oral Pulse Rate 60 Pulse Rate [Left] 60 Respiratory Rate 14 14 Blood Pressure 131/75 Blood Pressure [Right Arm] 131/75 Blood Pressure Mean [Right Arm] 93 02 Sat by Pulse Oximetry 97 Orders (Tests/Meds): ED MEDICATIONS Discontinued Medications Generic Name Dose Route Start Last Admin Trade Name Freq PRN Reason Stop Dose Admin Methylprednisolone Sodium Succinate 62.5 mg 01/31/21 13:26 01/31/21 14:10 Methylprednisolone Sod Succ 125mg Vial IM 01/31/21 13:27 62.5 mg ONCE ONE Administration [facility] [place] HPI - General Stated complaint: unknown injury to left eyebrow Time Seen by Provider: 01/31/21 13:20 Mode of Arrival: Ambulatory Source of Information: Patient Limitations: No Limitations Description of Symptoms (Recalled from Triage Doc. by RN): pt c/o a swollen L eye. pt thinks she may have been stung yesterday above the outer corner of her eye brow. HEENT Symptoms (Recalled from RN notes): Yes (L eye swelling) Resp Symptoms (Recalled from RN notes): No Skin Symptoms (Recalled from RN notes): No MS Symptoms (Recalled from RN notes): No Functional Status (Recalled from RN notes): wnl - History of Present Illness Provider Complaint: She states that she was riding in the back seat of a car yesterday and an insect came in the open window and stung her above her left eye. When she woke up this morning she had swelling around the eye. She denies any eye pain or changes in her vision. She denies any fever, chills or other complaints. - Related Data Home Medications Medication Instructions Recorded Confirmed Montelukast Sodium [Montelukast 10 mg PO HS 12/27/17 05/16/20 10mg Tab] Rivaroxaban [Xarelto 20mg Tablet*] 20 mg PO DAILY 12/27/17 05/16/20 cholecalciferol (vitamin D3) 50 2,000 unit PO DAILY 12/04/18 05/16/20 mcg (2,000 unit) capsule fluticasone 250 mcg-salmeterol 50 1 inh INHALATION BID each 12/04/18 05/16/20 mcg/dose blistr powdr for inhalation insulin degludec 100 0.1 ml SQ DAILY ml 12/04/18 05/16/20 unit-liraglutide 3.6 mg/mL(3 mL) subcutaneous pen ondansetron HCl 4 mg tablet 4 mg PO TID PRN 12/04/18 05/16/20 sertraline 50 mg tablet 100 mg PO DAILY tab 12/04/18 05/16/20 Losartan/Hydrochlorothiazide 1 tab PO DAILY 10/27/19 05/16/20 [Hyzaar 50-12.5 Tablet] metformin 1,000 mg tablet 1,000 mg PO ONCE tab 10/29/19 05/16/20 canagliflozin 100 mg tablet 100 mg PO DAILY tab 04/28/20 05/16/20 insulin degludec 200 unit/mL (3 20 unit SQ DAILY ml 04/28/20 05/16/20 mL) subcutaneous pen multivitamin 1 tab PO DAILY 04/28/20 05/16/20 Cyanocobalamin (Vitamin B-12) 1,000 mcg PO DAILY 05/10/20 05/16/20 [Vitamin B-12 1000mcg Tablet] celecoxib 200 mg capsule 200 mg PO DAILY cap 06/03/20 06/03/20 lev
[2021-01-31 14:46] VITALS: BP 131/75; PULSE 60; RESP 14; TEMP 36.5
== END 2021-01-31 14:48 | disposition home or self-care (01) ==
PROVIDERS: Emergency Provider Nurse Practitioner Family; PCP Family Medicine
DX: S00.262A Insect bite (nonvenomous) of left eyelid and periocular area, initial encounter (principal); W57.XXXA Bitten or stung by nonvenomous insect and other nonvenomous arthropods, initial encounter; I48.91 Unspecified atrial fibrillation; J44.9 Chronic obstructive pulmonary disease, unspecified; I10 Essential (primary) hypertension; E03.9 Hypothyroidism, unspecified; E78.5 Hyperlipidemia, unspecified; F33.1 Major depressive disorder, recurrent, moderate; Z79.899 Other long term (current) drug therapy
CPT/HCPCS: G0463; 96372; 99202

== ENCOUNTER → 2021-06-15 11:00 | Outpatient (CLI) | payer MEDICARE, SELFPAY ==
[2021-06-15 11:51] LABS: Basophils % 0.3 % (0.1-2.0); Eosinophils # 0.1 K/mm3 (0.0-0.4); Eosinophils % 1.3 % (0.1-12.0); Hematocrit 28.8 % (37.0-47.0); Hemoglobin 8.8 g/dL (12.2-16.2); Lymphocytes # 1.7 K/mm3 (0.7-4.5); Lymphocytes % 16.7 % (10-50); Mean Corpuscular HGB Conc 30.5 g/dL (31.8-35.4); Mean Corpuscular Hemoglobin 25.6 pg (27.0-31.2); Mean Corpuscular Volume 83.9 fl (81-99); Mean Platelet Volume 8.2 fl (7.4-10.4); Monocytes # 0.6 K/mm3 (0.1-1.0); Monocytes % 5.4 % (1.7-9.3); Neutrophils # 7.9 K/mm3 (1.8-7.8); Neutrophils % 76.4 % (37.0-80.0); Platelet Count 267 K/mm3 (142-424); Red Blood Count 3.43 M/mm3 (4.20-5.40); Red Cell Distribution Width 18.1 % (11.5-17.5); White Blood Count 10.3 K/mm3 (4.8-10.8)
[2021-06-15 12:59] LABS: Chloride 101 mmol/L (98-107)
[2021-06-15 13:00] LABS: Potassium 4.2 mmoL/L (3.5-5.1); Sodium 136 mmol/L (136-145)
[2021-06-15 13:02] LABS: Alanine Aminotransferase 13 U/L (12-78); Alkaline Phosphatase 96 U/L (38-126); Anion Gap 12.2 mEq/L (5-15); Aspartate Amino Transferase 25 U/L (14-36); Bilirubin,Total 0.8 mg/dl (0.2-1.3); Blood Urea Nitrogen 23 mg/dl (7-17); Carbon Dioxide 27 mmol/L (22.0-30.0); Cholesterol 95 mg/dl (140-200); Estimated Glomerular Filt Rate 45 ml/min (>60); GFR (African American) 55 ML/MIN (>60); Iron 30 ug/dL (37-170); Triglycerides 127 mg/dl (30-150); VLDL Cholesterol 25 mg/dL (0-40)
[2021-06-15 13:03] LABS: Albumin Level 3.5 g/dl (3.5-5.0); Albumin/Globulin Ratio 1.1 (1.1-1.8); Globulin 3.1 g/dL (1.3-3.2); Glucose 78 mg/dl (74-100); HDL Cholesterol 48 mg/dl (40-60); Total Protein,Serum 6.6 g/dl (6.3-8.2)
[2021-06-15 13:13] LABS: Total Iron Binding Capacity 462 ug/dL (265-497)
[2021-06-15 13:14] LABS: NT Pro Brain Natriuretic Pep. 2380 pg/mL (0-125)
[2021-06-15 13:19] LABS: Direct LDL Cholesterol < 30.00 mg/dL (100-129)
[2021-06-15 13:27] LABS: Free T4 (Free Thyroxine) 1.35 ng/dl (0.78-2.19)
== END ==
PROVIDERS: PCP Family Medicine; Visit Provider Physician Assistant
DX: I50.9 Heart failure, unspecified (principal); E03.9 Hypothyroidism, unspecified; E11.9 Type 2 diabetes mellitus without complications; E78.5 Hyperlipidemia, unspecified; D64.9 Anemia, unspecified; Z79.84 Long term (current) use of oral hypoglycemic drugs
CPT/HCPCS: 36415; 80053; 80061; 83540; 83550; 83880; 84439; 84443; 85025

== ENCOUNTER → 2022-07-03 11:03 | Outpatient (POV) | payer MEDICARE, SELFPAY | PROVIDERS: Visit Provider Dermatology | DX: Z00.00 Encounter for general adult medical examination without abnormal findings (principal) ==

== ENCOUNTER → 2022-08-28 14:07 | Outpatient (CLI) | payer MEDICARE, SELFPAY | PROVIDERS: PCP Family Medicine; Visit Provider Physician Assistant | DX: K52.9 Noninfective gastroenteritis and colitis, unspecified (principal) ==

== ENCOUNTER → 2022-09-02 22:30 | Outpatient (CLI) | payer MEDICARE, SELFPAY ==
[2022-09-07 23:14] LABS: Fats, Neutral Normal (.); Fats, Total Normal (.)
[2022-09-11 16:05] LABS: Pancreatic Elastase, Fecal 212 (>200)
== END ==
PROVIDERS: PCP Family Medicine; Visit Provider Physician Assistant
DX: K52.9 Noninfective gastroenteritis and colitis, unspecified (principal)
CPT/HCPCS: 82656; 82705

== ENCOUNTER → 2022-09-04 | Outpatient (CLI) | payer MEDICARE, SELFPAY ==
[2022-09-09 22:07] LABS: Calprotectin, Fecal 25 ug/g (0-120)
== END ==
LOC: LAB 09-06 12:21
PROVIDERS: PCP Family Medicine; Visit Provider Physician Assistant
DX: K52.9 Noninfective gastroenteritis and colitis, unspecified (principal)
CPT/HCPCS: 83993; 87045; 87177

== ENCOUNTER → 2022-11-19 15:23 | Outpatient (CLI) | payer MEDICARE, SELFPAY | LOC: RT 15:25 | PROVIDERS: PCP Family Medicine; Visit Provider Physician Assistant | DX: I48.91 Unspecified atrial fibrillation; Z68.39 Body mass index [BMI] 39.0-39.9, adult; E66.9 Obesity, unspecified; I11.0 Hypertensive heart disease with heart failure | CPT/HCPCS: 93270 ==

== ENCOUNTER → 2022-12-17 14:47 | Outpatient (CLI) | payer MEDICARE, SELFPAY ==
--- NOTE | 2022-12-17 14:53 | CA_ITS ---
APPROVED REPORT EXAM: Comprehensive 2D, Doppler, and color-flow Echocardiogram Digital Circuit Designer: Leigh Ann Morales RT(R) Ht: 5 ft 2 in Wt: 215lbs BSA: 1.97 BP: 78/57 mmHg Indications: AFIB, CHF, hx of CM, edema, palpitations, HTN. Echo Enhancing Agent Indication: Endocardial border delineation Agent(s) / Amount(s) Used: Definity 2 cc 2D Dimensions LVOT 1.99 cm (M/F) 1.5-2.5 LA Volume 97.60 mL LA Volume Index 49.54 mL/m2 (M/F) 16-34 M-Mode Dimensions RVDd 3.70 cm (0.9-2.6) LA Diam 3.54 cm (1.9-4.0) LVDd 5.71 cm (3.5-5.7) Ao Diam 2.74 cm (2.0-3.7) LVDs 5.26 cm (3.5-5.7) IVSd 0.85 cm (0.6-1.1) PWd 0.71 cm (0.6-1.1) EF (Teich) 17.20% FS 7.90% EDV (Teich) 160.70 mL ESV (Teich) 133.00 mL Tricuspid Valve TR P. Velocity 283.00 cm/s RAP Estimate 10.00 mmHg RVSP 42.10 mmHg Left Ventricle Left ventricle is severely dilated (LVEDVi=90 ml/m2). Left ventricular systolic function is severely decreased. There is normal left ventricular wall thickness. The septum appears asynchronous. Diastolic function is indeterminate due to atrial fibrillation. No left ventricle thrombus noted on this study. LVEF is 15-20%. Right Ventricle Right ventricle is mildly dilated. Right ventricle is moderately hypokinetic. Atria Left atrium is severely dilated. Right atrium is moderately dilated. There is no Doppler evidence of interatrial shunt. Aortic Valve The aortic valve is mildly thickened. There is no aortic valvular stenosis. Mild aortic regurgitation. Mitral Valve The mitral valve leaflets are mildly thickened. The posterior leaflet appears tethered with restricted motion. No evidence of mitral valve stenosis. Mild mitral regurgitation. The mitral regurgitant jet is eccentric and posteriorly directed. Tricuspid Valve The tricuspid valve leaflets are thin and pliable. Mild tricuspid regurgitation. RVSP is 35-40 mmHg. Pulmonic Valve The pulmonary valve is normal in structure. Mild pulmonic regurgitation. Great Vessels The aortic root is normal in size. The ascending aorta is normal in size. IVC is normal in size and collapses >50% with inspiration. Pericardium There is no pericardial effusion. Other Information Study Quality: Technically Difficult Conclusion This is a technically difficult study due to poor acoustic windows. Severely dilated LV (LVEDVi 90 ml/m2) with severe reduction in LV systolic function (LVEF 15-20%). Mildly dilated RV with moderate RV dysfunction. Biatrial dilation. Mild AI, mild MR, mild TR. Elevated RVSP 35-40 mmHg. Compared to prior study from 2020, the LVEF is now severely reduced. Cardiac MRI (cardiomyopathy protocol), as well as ischemic evaluation, is recommended for further evaluation. Electronically signed by : Kasey Jones MD 12/18/2022 20:57:47
== END ==
LOC: RT 14:49
PROVIDERS: PCP Family Medicine; Visit Provider Physician Assistant
DX: I10 Essential (primary) hypertension (principal); I48.91 Unspecified atrial fibrillation; I50.9 Heart failure, unspecified; Z01.810 Encounter for preprocedural cardiovascular examination; Z68.41 Body mass index [BMI] 40.0-44.9, adult; E66.9 Obesity, unspecified
CPT/HCPCS: 93306; Q9957

== ENCOUNTER 2022-12-26 07:55 | Day surgery (SDC) | payer MEDICARE, SELFPAY ==
[2022-12-26] VITALS (13 sets, daily range): BP systolic 84–132; BP diastolic 49–88; PULSE 85–117; RESP 15–18; TEMP 36.9; O2SAT 91–100; BMI 39.3
--- NOTE | 2022-12-26 | IR_ITS ---
APPROVED REPORT Patient Location: Outpatient Cd Manufacturing Supervisor: KEILA Bettencourt RT (R) PROCEDURES Left heart catheterization Left ventriculogram Selective coronary angiogram INDICATION New onset cardiomyopathy ejection fraction 15% Informed consent was obtained prior to the procedure. COMPLICATIONS None Estimated Blood Loss: Less than 10 mls TECHNIQUE One percent lidocaine used to anesthetize the right anterior aspect of the wrist. The right radial artery was accessed via the Seldinger technique. A 6 Setswana sheath was placed in the right radial artery. 2.5 mg of Verapamil, 800 mcg of nitroglycerin, 1mg Lidocaine and 5000 U Heparin were given through the arterial sheath. The papa catheter was also used to perform left heart catheterization, left ventriculogram and selective coronary angiogram. At the end of the procedure the sheath was removed good hemostasis was achieved using Traclet band, patient was transferred to the postop holding area in stable condition. ANGIOGRAPHIC RESULTS The left main artery Normal The left anterior descending artery Normal The circumflex artery Large dominant normal The right coronary artery Normal The WILSON ventriculogram reveals Severely dilated and hypokinetic ejection fraction 15% The left ventricular end-diastolic pressure 20 mmHg IMPRESSION Normal coronary arteries Severely dilated and hypokinetic ventricle Borderline LVEDP PLAN 1. Standard therapy for systolic heart failure 2. Continue anticoagulation 3. Rate control for atrial fibrillation 4. Continue work-up for nonischemic cardiomyopathy Electronically signed by : Carmelo Escalante MD 12/26/2022 09:41:25
[2022-12-26 08:35] LABS: Basophils % 0.4 % (0.1-2.0); Eosinophils # 0.2 K/mm3 (0.0-0.4); Eosinophils % 1.6 % (0.1-12.0); Hematocrit 40.9 % (37.0-47.0); Hemoglobin 13.9 g/dL (12.2-16.2); Lymphocytes # 2.3 K/mm3 (0.7-4.5); Lymphocytes % 20.6 % (10-50); Mean Corpuscular HGB Conc 34.1 g/dL (31.8-35.4); Mean Corpuscular Volume 90.9 fl (81-99); Mean Platelet Volume 8.3 fl (7.4-10.4); Monocytes # 0.8 K/mm3 (0.1-1.0); Monocytes % 7.4 % (1.7-9.3); Neutrophils % 70.1 % (37.0-80.0); Platelet Count 296 K/mm3 (142-424); Red Cell Distribution Width 16.1 % (11.5-17.5); White Blood Count 11.4 K/mm3 (4.8-10.8)
[2022-12-26 08:43] LABS: Anion Gap 15.7 mEq/L (5-15); Blood Urea Nitrogen 18 mg/dl (7-17); Calcium 9.2 mg/dl (8.4-10.2); Carbon Dioxide 31 mmol/L (22.0-30.0); Chloride 93 mmol/L (98-107); Creatinine Clearance Estimated 71 mL/min (50-200); Estimated Glomerular Filt Rate 45 ml/min (>60); GFR (African American) 54 ML/MIN (>60); Glucose 210 mg/dl (74-100); Potassium 3.7 mmoL/L (3.5-5.1); Sodium 136 mmol/L (136-145)
== END 2022-12-26 12:37 | disposition home or self-care (01) ==
PROVIDERS: PCP Family Medicine; Visit Provider Internal Medicine
DX: I42.9 Cardiomyopathy, unspecified (principal); I48.0 Paroxysmal atrial fibrillation; E11.9 Type 2 diabetes mellitus without complications; Z79.4 Long term (current) use of insulin; I11.0 Hypertensive heart disease with heart failure; I50.9 Heart failure, unspecified; Z79.899 Other long term (current) drug therapy
CPT/HCPCS: 80048; 85025; 93458; 99152; C1725; C1769; J1644; Q9967

== ENCOUNTER 2023-01-20 08:43 | Emergency (ER) | payer MEDICARE, SELFPAY ==
[2023-01-20] VITALS (10 sets, daily range): BP systolic 83–120; BP diastolic 53–83; PULSE 74–102; RESP 12–18; TEMP 36.8; O2SAT 96–100; BMI 37.0
--- NOTE | 2023-01-20 08:45 | XR_ITS ---
PROCEDURE INFORMATION: Exam: XR Chest Exam date and time: 01/20/2023 8:52 AM Age: 67 years old Clinical indication: Other: Chest pain TECHNIQUE: Imaging protocol: Radiologic exam of the chest. Views: 1 view. COMPARISON: CR XR CHEST 2V 10/27/2020 11:44 AM FINDINGS: Lungs: Unremarkable. No consolidation. Pleural spaces: Unremarkable. No pleural effusion. No pneumothorax. Heart/Mediastinum: Unremarkable. No cardiomegaly. Bones/joints: Unremarkable. IMPRESSION: No acute findings.
--- NOTE | 2023-01-20 08:46 | ECG_ITS ---
APPROVED REPORT Exam: Resting ECG HR:90 bpm ECG Measurements Heart Rate 90 AXES QRSd 146 QRS 150 QT 419 T -10 QTc 467 Conclusion ATRIAL FIBRILLATION INTRAVENTRICULAR CONDUCTION DELAY [130+ ms QRS DURATION] ABNORMAL ECG UNCONFIRMED REPORT Electronically signed by : Torsten Amado MD 01/21/2023 17:39:44
--- NOTE | 2023-01-20 08:47 | HMH.EDCP ---
Discharge Plan Disposition Patient Disposition: Home, Self-Care Chief Complaint: Chest Pain Prescriptions Prescriptions: No Action liraglutide 0.6 mg/0.1 mL (18 mg/3 mL) pen injector 1.8 mg SQ DAILY Patient Comments: INJECT 1.8 MG SUBCUTANEOUSLY ONCE DAILY celecoxib 200 mg capsule 200 mg PO DAILY Patient Comments: TAKE ONE CAPSULE BY MOUTH EVERY DAY --TAKE WITH FOOD-- Entresto 24-26 mg tablet 1 tab PO BID Qty: 60 2RF furosemide 20 mg tablet 20 mg PO DAILY Qty: 90 3RF Jardiance 10 mg tablet 10 mg PO DAILY Qty: 90 3RF spironolactone [Aldactone] 50 mg tablet 50 mg PO DAILY Qty: 90 3RF cholecalciferol (vitamin D3) 2,000 unit capsule 2,000 unit PO DAILY ondansetron HCl [Zofran] 4 mg tablet 4 mg PO TID PRN (Reason: nausea, vomiting) Xultophy 100/3.6 100 unit-3.6 mg /mL (3 mL) insulin pen 0.1 ml SQ DAILY insulin degludec 200 unit/mL (3 mL) insulin pen 20 unit SQ DAILY multivitamin Tablet 1 tab PO DAILY desvenlafaxine succinate [Pristiq] 50 mg tablet extended release 24 hr 50 mg PO DAILY Qty: 30 1RF metoprolol tartrate 100 mg tablet See Rx Instructions .ROUTE .COMPLEX Qty: 60 5RF Dose Instruction: TAKE ONE TABLET BY MOUTH TWICE DAILY Rx Instructions: TAKE ONE TABLET BY MOUTH TWICE DAILY diphenhydramine HCl 25 MG capsule 25 mg PO Q6HP PRN (Reason: Itching) Qty: 30 0RF cetirizine 10 MG capsule 10 mg PO DAILY 14 Days Qty: 14 0RF famotidine 20 MG tablet 20 mg PO BID 14 Days Qty: 28 0RF rivaroxaban 20 MG tablet 20 mg PO DAILY montelukast 10 MG tablet 10 mg PO HS fluticasone propion-salmeterol 250-50 mcg/dose blister with device 1 inh INHALATION BID metformin 1,000 mg tablet 1,000 mg PO ONCE Hold Instructions: Resume on 12/29/22. levothyroxine 200 mcg tablet 175 mcg PO DAILY cyanocobalamin (vitamin B-12) 1,000 MCG tablet 1,000 mcg PO DAILY rosuvastatin 10 mg tablet 10 mg PO HS Referrals Follow up/Referrals: Marciano Ortiz MD [Primary Care Provider] - See instructions Activity Restrictions/Add. Instructions Additional Instructions/Restrictions: At this time it was felt you are safe to be discharged home. If new or worsening symptoms please do not hesitate to return the emergency department. Please follow-up with Dr. Escalante as discussed. Clinical Impressions Clinical Impression: Chest pain Discharge ED Provider: Mayco Bocanegra HPI General Chief Complaint: Chest Pain Stated Complaint: cp Time Seen by Provider: 01/20/23 08:45 History of Present Illness HPI narrative: Patient is a 67-year-old female with past medical history of atrial fibrillation on anticoagulation, heart failure with reduced ejection fraction, hypertension, COPD not on home oxygen who presents emergency department for evaluation of chest pain. Onset was acute, occurring at approximately 5:30 in the morning, substernal, burning, radiating across her left chest and into her shoulder. No shortness of breath beyond baseline, no cough, no sick contacts. No other acute complaints at this time. Per chart review of recent cardiac catheterization conducted on 12-26-2022 coronary arteries were normal with severely dilated and hypokinetic ventricles. Related Data Home Medications Medication Instructions Recorded Confirmed montelukast 10 mg tablet 10 mg PO HS Asthma 12/27/17 01/20/23 rivaroxaban 20 mg tablet 20 mg PO DAILY afib 12/27/17 01/20/23 cholecalciferol (vitamin D3) 50 2,000 unit PO DAILY Supplement 12/04/18 01/20/23 mcg (2,000 unit) capsule fluticasone 250 mcg-salmeterol 50 1 inh inhalation BID Asthma 12/04/18 01/20/23 mcg/dose blistr powdr for inhalation insulin degludec 100 0.1 ml SQ DAILY Diabetes 12/04/18 01/02/23 unit-liraglutide 3.6 mg/mL(3 mL) subcutaneous pen (Xultophy 100/3.6) ondansetron HCl 4 mg tablet 4 mg PO TID PRN nausea, vomiting 12/04/18
[2023-01-20 08:55] LABS: Basophils # 0.1 K/mm3 (0-0.2); Basophils % 0.5 % (0.1-2.0); Eosinophils # 0.3 K/mm3 (0.0-0.4); Eosinophils % 2.4 % (0.1-12.0); Hematocrit 45.9 % (37.0-47.0); Hemoglobin 15.2 g/dL (12.2-16.2); Lymphocytes # 3.2 K/mm3 (0.7-4.5); Lymphocytes % 25.6 % (10-50); Mean Corpuscular Hemoglobin 30.2 pg (27.0-31.2); Mean Corpuscular Volume 91.6 fl (81-99); Mean Platelet Volume 8.1 fl (7.4-10.4); Monocytes # 0.9 K/mm3 (0.1-1.0); Monocytes % 6.8 % (1.7-9.3); Neutrophils # 8.1 K/mm3 (1.8-7.8); Neutrophils % 64.7 % (37.0-80.0); Platelet Count 278 K/mm3 (142-424); Red Blood Count 5.01 M/mm3 (4.20-5.40); Red Cell Distribution Width 16.2 % (11.5-17.5); White Blood Count 12.5 K/mm3 (4.8-10.8)
--- NOTE | 2023-01-20 08:55 | PC.NURSE ---
xray at bs
[2023-01-20 08:58] LABS: Chloride 97 mmol/L (98-107)
[2023-01-20 08:59] LABS: Potassium 3.6 mmoL/L (3.5-5.1); Sodium 138 mmol/L (136-145)
[2023-01-20 09:01] LABS: Alanine Aminotransferase 27 U/L (12-78); Albumin Level 4.1 g/dl (3.5-5.0); Alkaline Phosphatase 111 U/L (38-126); Anion Gap 10.6 mEq/L (5-15); Aspartate Amino Transferase 35 U/L (14-36); Blood Urea Nitrogen 20 mg/dl (7-17); Carbon Dioxide 34 mmol/L (22.0-30.0); Estimated Glomerular Filt Rate 50 ml/min (>60); GFR (African American) 60 ML/MIN (>60); Globulin 4.3 g/dL (1.3-3.2); Total Protein,Serum 8.4 g/dl (6.3-8.2)
[2023-01-20 09:02] LABS: Calcium 9.3 mg/dl (8.4-10.2); Glucose 139 mg/dl (74-100)
[2023-01-20 09:04] LABS: Creatinine Clearance Estimated 78 mL/min (50-200)
[2023-01-20 09:15] LABS: Troponin I < 0.01 ng/ml (0.00-0.034)
--- NOTE | 2023-01-20 09:55 | PC.NURSE ---
pt was given puke bad
--- NOTE | 2023-01-20 09:59 | ECG_ITS ---
APPROVED REPORT Exam: Resting ECG HR:84 bpm ECG Measurements Heart Rate 84 AXES QRSd 140 QRS 151 QT 407 T -15 QTc 448 Conclusion ATRIAL FIBRILLATION INTRAVENTRICULAR CONDUCTION DELAY [130+ ms QRS DURATION] ABNORMAL ECG UNCONFIRMED REPORT Electronically signed by : Torsten Aamdo MD 01/21/2023 17:39:34
--- NOTE | 2023-01-20 10:00 | PC.NURSE ---
Repeat EKG performed at 0959 after pt complains of increased chest tightness
--- NOTE | 2023-01-20 11:07 | PC.NURSE ---
Rounded on pt. Pt resting peacefully with eyes closed. Respirations are even and unlabored. Call light within reach.
--- NOTE | 2023-01-20 11:51 | PC.NURSE ---
called dietary for a regular tray for pt
[2023-01-20 12:19] LABS: Troponin I < 0.01 ng/ml (0.00-0.034)
== END 2023-01-20 13:21 | disposition home or self-care (01) ==
PROVIDERS: Emergency Provider Emergency Medicine; PCP Family Medicine
DX: R07.9 Chest pain, unspecified (principal); M25.512 Pain in left shoulder; I48.91 Unspecified atrial fibrillation; I11.0 Hypertensive heart disease with heart failure; I50.20 Unspecified systolic (congestive) heart failure; J44.9 Chronic obstructive pulmonary disease, unspecified; E03.9 Hypothyroidism, unspecified; E78.5 Hyperlipidemia, unspecified; F32.9 Major depressive disorder, single episode, unspecified; Z87.891 Personal history of nicotine dependence; I44.7 Left bundle-branch block, unspecified
CPT/HCPCS: 71045; 80053; 84484; 85025; 93005; 96374; 99285

== ENCOUNTER 2023-03-09 23:13 | Inpatient (IN) | payer MEDICARE, SELFPAY ==
--- NOTE | 2023-03-09 23:11 | XR_ITS ---
PROCEDURE INFORMATION: Exam: XR Chest Exam date and time: 03/09/2023 11:13 PM Age: 67 years old Clinical indication: Fever TECHNIQUE: Imaging protocol: Radiologic exam of the chest. Views: 1 view. COMPARISON: CR XR CHEST PORTABLE 01/20/2023 8:52 AM FINDINGS: Lungs: Left suprahilar prominence related to airspace disease or possibly adenopathy. Lung volumes are low bilaterally. Pleural spaces: No pleural effusion. No pneumothorax. Heart/Mediastinum: Cardiomegaly. Bones/joints: No acute findings. IMPRESSION: 1. Limited inspiration. 2. Left suprahilar prominence related to airspace disease or possibly adenopathy. 3. Cardiomegaly.
--- NOTE | 2023-03-09 23:11 | ECG_ITS ---
APPROVED REPORT Exam: Resting ECG HR:136 bpm ECG Measurements Heart Rate 136 AXES QRSd 143 QRS -82 QT 330 T 123 QTc 410 Conclusion ATRIAL FIBRILLATION WITH RAPID VENTRICULAR RESPONSE INDETERMINATE AXIS INTRAVENTRICULAR CONDUCTION DELAY [130+ ms QRS DURATION] POSSIBLE LATERAL MYOCARDIAL INFARCTION , OF INDETERMINATE AGE [30 ms Q WAVE IN I/aVL/V5/V6] ABNORMAL ECG UNCONFIRMED REPORT Electronically signed by : Torsten Amado MD 03/11/2023 17:31:03
[2023-03-09 23:13] VITALS: BP 135/68; PULSE 142; RESP 16; TEMP 37.4; O2SAT 98; BMI 39.6
[2023-03-09 23:24] LABS: Basophils # 0.1 K/mm3 (0-0.2); Basophils % 0.2 % (0.1-2.0); Coronavirus 19, PCR Not Detected (NotDetected); Hematocrit 47.2 % (37.0-47.0); Hemoglobin 15.4 g/dL (12.2-16.2); Influenza A, PCR Not Detected (NotDetected); Influenza B, PCR Not Detected (NotDetected); Lymphocytes # 1.5 K/mm3 (0.7-4.5); Lymphocytes % 5.8 % (10-50); Mean Corpuscular HGB Conc 32.6 g/dL (31.8-35.4); Mean Corpuscular Hemoglobin 32.3 pg (27.0-31.2); Mean Corpuscular Volume 99.1 fl (81-99); Mean Platelet Volume 8.9 fl (7.4-10.4); Monocytes # 1.1 K/mm3 (0.1-1.0); Monocytes % 4.4 % (1.7-9.3); Neutrophils # 22.4 K/mm3 (1.8-7.8); Neutrophils % 89.6 % (37.0-80.0); Platelet Count 252 K/mm3 (142-424); Red Blood Count 4.76 M/mm3 (4.20-5.40); Red Cell Distribution Width 15.2 % (11.5-17.5)
[2023-03-09 23:26] LABS: Acetone, Serum (Rapid) None Detected (None Detect); Chloride 85 mmol/L (98-107); Potassium 4.3 mmoL/L (3.5-5.1); Sodium 124 mmol/L (136-145)
[2023-03-09 23:28] LABS: Blood Urea Nitrogen 41 mg/dl (7-17); Creatinine Clearance Estimated 46 mL/min (50-200); Estimated Glomerular Filt Rate 28 ml/min (>60); GFR (African American) 34 ML/MIN (>60)
[2023-03-09 23:29] LABS: Alanine Aminotransferase 36 U/L (12-78); Alkaline Phosphatase 116 U/L (38-126); Anion Gap 18.3 mEq/L (5-15); Aspartate Amino Transferase 39 U/L (14-36); Bilirubin,Total 1.9 mg/dl (0.2-1.3); Calcium 9.3 mg/dl (8.4-10.2); Carbon Dioxide 25 mmol/L (22.0-30.0); Globulin 3.9 g/dL (1.3-3.2); Total Protein,Serum 7.9 g/dl (6.3-8.2)
[2023-03-09 23:31] LABS: Lipase 75 U/L (23-300)
[2023-03-09 23:32] LABS: MANUAL DIFFERENTIAL MANUAL DIFFERENTIAL (MANUAL DIFF)
[2023-03-09 23:34] LABS: Glucose 451 mg/dl (74-100)
[2023-03-09 23:36] LABS: Lymphocytes % 7 % (10-50); Monocytes % 1 % (2-9); Neutrophils % 92 % (42-76); Platelet Estimate Normal; RBC Morphology Normal; Total Cells Counted 100
[2023-03-09 23:37] LABS: NT Pro Brain Natriuretic Pep. 9830 pg/mL (0-125)
[2023-03-09] MEDS: 0.9 % SODIUM CHLORIDE 1000ML 1,000 ML 999 ML IV (23:37)
[2023-03-09 23:38] VITALS: BP 123/79; PULSE 87; RESP 22; O2SAT 93
[2023-03-09 23:44] LABS: Troponin I 0.03 ng/ml (0.00-0.034)
[2023-03-09 23:46] LABS: VBG Base Excess -2.9 mmol/L (-2.4-2.3); VBG HCO3 22.7 mmol/L (23-30); VBG Oxygen Saturation 54.1 % (50-70); VBG PCO2 41.4 mmol/L (35-51); VBG PH 7.36 mmol/L (7.31-7.41); VBG PO2 28.3 mmol/L (28-40); VBG Total CO2 23.9 mmol/L (23-27)
[2023-03-09] MEDS: PIPERACILLIN/TAZO 4.5 GM in 0.9 % SODIUM CHLORIDE 100 ML IV (23:46)
[2023-03-09] MEDS: VANCOMYCIN CONSULT REQUEST 1 EACH NOTAPPLIC (23:50)
[2023-03-09] MEDS: humaLOG 100 UNITS/ML 3ML VIAL (SSI) SQ (23:55)
[2023-03-09 23:56] LABS: Lactic Acid 4.7 mmol/L (0.7-2.1)
--- NOTE | 2023-03-09 23:59 | PC.NURSE ---
on phone with dr morales
[2023-03-10] VITALS (73 sets, daily range): BP systolic 54–156; BP diastolic 29–92; PULSE 71–137; RESP 16–28; TEMP 36.8–38.2; O2SAT 88–100; BMI 39.7
--- NOTE | 2023-03-10 | PC.NURSE ---
no sepsis bolus per MD due to Heart failure
--- NOTE | 2023-03-10 00:01 | PC.NURSE ---
notified greenhouse instructor of admission
--- NOTE | 2023-03-10 00:32 | HMH.EDGENADL ---
Discharge Plan Disposition Patient Disposition: Admitted Chief Complaint: Nausea/Vomiting/Diarrhea Clinical Impressions Clinical Impression: LORE (acute kidney injury), Atrial fibrillation with rapid ventricular response, Acute dehydration, Acute hyperglycemia, Elevated lactic acid level, Acute hyponatremia Sepsis Qualifiers: Sepsis acute organ dysfunction status: with acute organ dysfunction Severe sepsis acute organ dysfunction type: acute renal failure Acute renal failure type: unspecified Severe sepsis shock status: without septic shock Discharge ED Provider: Grayson Pressley General Adult HPI General Chief complaint: Nausea/Vomiting/Diarrhea Stated complaint: n/v fever Time Seen by Provider: 03/09/23 23:16 Mode of Arrival: EMS Source of Information: Patient Limitations: No Limitations Description of Symptoms (Recalled from ER Triage Doc. by RN): pt c/o n/v, fever,high FSBS since saturday morning. pt states has been unable to take home meds for several days History of Present Illness HPI narrative: 67-year-old female with history of COPD, heart failure, A-fib, hypertension, insulin-dependent diabetes presents with nausea vomiting for the last several days. She reports that she has felt warm but does not know exactly what her temperatures been. She reports she started feeling bad on Saturday night and since has not been able to keep down any significant volume of fluids, food, or her medications. She denies any chest pain or shortness of breath. She denies any abdominal pain besides a mild aching when she vomits. She denies any changes in urination, reports no burning. She reports no diarrhea. She reports no recent surgery or other possible inciting factor. Primary symptom is nausea and vomiting. Related Data Home Medications Medication Instructions Recorded Confirmed montelukast 10 mg tablet 10 mg PO HS Asthma 12/27/17 03/09/23 rivaroxaban 20 mg tablet 20 mg PO DAILY afib 12/27/17 03/09/23 cholecalciferol (vitamin D3) 50 2,000 unit PO DAILY Supplement 12/04/18 03/09/23 mcg (2,000 unit) capsule fluticasone 250 mcg-salmeterol 50 1 inh inhalation BID Asthma 12/04/18 03/09/23 mcg/dose blistr powdr for inhalation insulin degludec 200 unit/mL (3 33 unit SQ DAILY Diabetes 04/28/20 03/09/23 mL) subcutaneous pen multivitamin 1 tab PO DAILY Supplement 04/28/20 03/09/23 cyanocobalamin (vitamin B-12) 1,000 mcg PO DAILY Supplement 05/10/20 03/09/23 1,000 mcg tablet levothyroxine 200 mcg tablet 175 mcg PO DAILY thyroid 06/03/20 03/09/23 liraglutide 0.6 mg/0.1 mL (18 mg/3 0.1 mg SQ DAILY 06/03/20 03/09/23 mL) subcutaneous pen injector rosuvastatin 10 mg tablet 10 mg PO HS 01/20/23 03/09/23 Previous Rx's Medication Instructions Recorded metoprolol tartrate 100 mg tablet See Rx Instructions .Route 03/19/22 .COMPLEX #60 tabs empagliflozin 10 mg tablet 10 mg PO DAILY #90 tabs 01/02/23 (Jardiance) furosemide 20 mg tablet 20 mg PO DAILY #90 tabs 01/02/23 spironolactone 50 mg tablet 50 mg PO DAILY #90 tabs 01/02/23 (Aldactone) desvenlafaxine succinate 100 mg 100 mg PO DAILY #30 tabs 01/31/23 tablet,extended release 24 hr (Pristiq) sacubitril 24 mg-valsartan 26 mg 1 tab PO BID #60 tabs 03/05/23 tablet (Entresto) Allergies Allergy/AdvReac Type Severity Reaction Status Date / Time naproxen [From ALEVE] Allergy Intermediate S-SWELLS-OR Verified 01/02/23 14:05 AL/THROAT oxytetracycline Allergy Intermediate Verified 01/02/23 14:05 [From TERRAMYCIN] tetracycline [TETRACYCLINE] Allergy Intermediate NA-SEDATION Verified 01/02/23 14:05 [facility] Disclaimer: The information contained in this section may have been updated after the patient was seen, as this information can be updated by other users. Medical History (Updated 03/10/23 @ 01:30 by Grayson Pressley MD) Atrial fibrillation CHF (congestive heart failure) COPD (chronic obstructive pulmonary disease) HFrEF (heart failure with reduced ejection fraction) HTN (hypertension) Hyperlipidemia Hypothyroid Major depressive disorder Surgical History History of cholecystectomy History of tubal ligation Social History Smoking Status: Never smoker years smoked: 15 how long ago did patient quit smokin second hand exposure: No alcohol intake: never counseling given: No substance use type: denies use counseling given: No current occupational status: disabled Travel in the last 8 weeks: Inside the [place] adopted: No caregiver/support person: No foster care: No household members: family and none housing: house lives independently: Yes marital status: number of children: 3 number of grandchildren: 11 education level: high school current occupational exposures/hazards: No caffeine: Yes physical activity: none working smoke detector in home: Yes fire extinguisher in home: No carbon monox detector in home: No firearms in home: No do you feel safe at home: Yes victim of physical abuse: No victim of emotional abuse: No victim of sexual abuse: No would you like helpful sources: No ROS Obtained: Yes All systems reviewed & no additional complaints except as documented Physical Exam General General appearance: alert and in no apparent distress Head Head exam: atraumatic and normocephalic Eye Eye exam: Present normal appearance, PERRL and EOMI ENT ENT exam: Present normal oropharynx and normal external ear exam Neck Neck exam: Present normal inspection and full ROM Chest Chest inspection: Present normal inspection and symmetric chest wall rise; Absent tenderness Respiratory Respiratory exam: Present normal lung sounds bilaterally; Absent respiratory distress Cardiovascular Cardiovascular exam: Present tachycardia and irregular rhythm Abdominal Exam Abdominal exam: Present soft; Absent distention, tenderness or guarding Comment: No abdominal tenderness to palpation on exam Extremities Exam Extremities exam: Present normal inspection; Absent edema or joint swelling Back Exam Back exam: Present normal inspection; Absent tenderness Neurological Exam Neurological exam: Present alert and oriented X3; Absent motor sensory deficit Psychiatric Psychiatric exam: Present normal affect and normal mood Skin Skin exam: Present warm, dry and normal color Lymphatic Lymphatic Findings: no adenopathy Medical Decision Making Medical Records Medical records reviewed: Yes I reviewed the patient's medical records. Mark Inquiry Pt receiving controlled substance: No Mark was queried for this patient: No Vital Signs: 03/09/23 23:13 03/09/23 23:38 03/10/23 00:00 Temperature 99.4 F Temperature Source Oral Pulse Rate 87 74 Pulse Rate [Right] 142 H Respiratory Rate 16 22 28 H Blood Pressure 123/79 134/92 H Blood Pressure [Right Arm] 135/68 Blood Pressure Mean Blood Pressure Mean [Right Arm] 90 02 Sat by Pulse Oximetry 98 93 L 96 03/10/23 00:31 03/10/23 00:57 Temperature 99.4 F Temperature Source Oral Pulse Rate 129 H 129 H Pulse Rate [Right] Respiratory Rate 20 18 Blood Pressure 115/75 115/75 Blood Pressure [Right Arm] Blood Pressure Mean 88 Blood Pressure Mean [Right Arm] 02 Sat by Pulse Oximetry 97 Lab Data Lab results reviewed: Yes I reviewed the patient's lab results. Lab Results 03/09/23 23:12: WBC 25.0 H*, RBC 4.76, Hgb 15.4, Hct 47.2 H, MCV 99.1 H, MCH 32.3 H, MCHC 32.6, RDW 15.2, Plt Count 252, MPV 8.9, Neut % (Auto) 89.6 H, Lymph % (Auto) 5.8 L, [place] % (Auto) 4.4, Eos % (Auto) 0.0 L, Baso % (Auto) 0.2, Neut # (Auto) 22.4 H, Lymph # (Auto) 1.5, [place] # (Auto) 1.1 H, Eos # (Auto) 0.0, Baso # (Auto) 0.1, Total Counted 100, Neutrophils % (Manual) 92 H, Lymphocytes % (Manual) 7 L, Monocytes % (Manual) 1 L, Platelet Estimate Normal, RBC Morphology Normal, Sodium 124 L, Potassium 4.3, Chloride 85 L, Carbon Dioxide 25, Anion Gap 18.3 H, BUN 41 H, Creatinine 1.80 H, Estimated Creat Clear 46, Estimated GFR 28 L, Est GFR ( Amer) 34 L, Glucose 451 H*, Calcium 9.3, Magnesium 2.0, Total Bilirubin 1.9 H, AST 39 H, ALT 36, Alkaline Phosphatase 116, Troponin I 0.03, NT-Pro-B Natriuret Pep 9830 H, Total Protein 7.9, Albumin 4.0, Globulin 3.9 H, Albumin/Globulin Ratio 1.0 L, Lipase 75, Acetone Level None detected, SARS-CoV-2 (PCR) Not detected, Influenza A Untype (PCR) Not detected, Influenza Type B (PCR) Not detected 03/09/23 23:13: VBG pH 7.36, VBG pCO2 41.4, VBG pO2 28.3, VBG HCO3 22.7 L, VBG Total CO2 23.9, VBG O2 Saturation 54.1, VBG Base Excess -2.9 L 03/09/23 23:35: Lactate 4.7 H 03/09/23 23:12 03/09/23 23:12 Orders (Tests/Meds): ED MEDICATIONS Generic Name Dose Route Start Last Admin Trade Name Freq PRN Reason Stop Dose Admin Acetaminophen 1,000 mg 03/10/23 00:01 Acetaminophen 325mg Tab PO 04/09/23 00:00 Q6HP PRN Fever or Mild Pain (1-3) Vancomycin/PEG/NADA/Lysine/Water 1.5 gm in 300 mls @ 150 mls/hr 03/10/23 00:00 Vancomycin 1.5gm/300ml (Peg) Premix IV 03/20/23 00:00 Q36H FARHAN Lactated Ringer's 1,000 mls @ 999 mls/hr 03/10/23 00:00 Lactated Ringer's 1000 Ml Bag IV 03/10/23 01:00 .Q1H1M FARHAN Insulin Human Lispro 0 unit 03/09/23 23:45 03/09/23 23:55 Humalog 100 Units/Ml 3ml Vial (Ssi) SQ 04/08/23 23:44 15 unit Q6H FARHAN Administration Protocol Miscellaneous 1 each 03/09/23 23:45 03/09/23 23:50 Vancomycin Consult Request NOTAPPLIC 04/08/23 23:44 1 each CONSULT PHARMACY FARHAN Administration Ondansetron HCl 4 mg 03/10/23 00:06 03/10/23 00:51 Ondansetron 4mg/2ml Vial IV 04/09/23 00:05 4 mg Q6HP PRN Administration Nausea Discontinued Medications Generic Name Dose Route Start Last Admin Trade Name Freq PRN Reason Stop Dose Admin Sodium Chloride 1,000 mls @ 999 mls/hr 03/09/23 23:15 03/09/23 23:37 Sod Chlor 0.9% 1000ml Bag IV 03/10/23 00:15 999 mls/hr .Q1H1M FARHAN Administration Piperacillin Sod/Tazobactam 100 mls @ 200 mls/hr 03/09/23 23:37 03/09/23 23:46 Sod 4.5 gm/ Sodium Chloride IV 03/10/23 00:06 200 mls/hr ONCE ONE Administration ORDERS Category Date Time Status CXR --portable [XR chest portable] Stat Exams 03/09/23 23:11 Completed Acetone, Serum (Rapid) Stat Lab 03/09/23 23:12 Completed BNP [Brain Natriuretic Peptide] Stat Lab 03/09/23 23:12 Completed CBC w/Auto Diff [Complete Blood Count Auto Diff] Stat Lab 03/09/23 23:12 Completed CBC w/Auto Diff [Complete Blood Count Auto Diff] Timed Lab 03/10/23 05:00 Ordered CMP [Comprehensive Metabolic Panel] Stat Lab 03/09/23 23:12 Completed Lactate Venous Routine Lab 03/10/23 05:00 Ordered Lactic Acid Stat Lab 03/09/23 23:35 Completed Lipase Stat Lab 03/09/23 23:12 Completed Magnesium Stat Lab 03/09/23 23:12 Completed Rapid PCR Covid and Flu A/B Stat Lab 03/09/23 23:12 Completed Troponin I Q3H Lab 03/09/23 23:12 Completed Troponin I Q3H Lab 03/10/23 02:15 Ordered UA [Urinalysis and Microscopic] Stat Lab 03/09/23 23:13 Ordered Blood Culture Stat Micro 03/09/23 23:41 Received VBG [Venous Blood Gas] Stat RT 03/09/23 23:13 Completed Tissue Perfus/Sepsis Re-Eval Sepsis Re-Evaluation Performed: Yes Date Performed: 03/10/23 Time Performed: 01:17 Medical Decision Narrative: 67-year-old female, presentation complicated by history of insulin-dependent diabetes, COPD, heart failure, hypertension, hyperlipidemia presents with nausea vomiting and p.o. intolerance for the last 3 days. History was obtained via conversation with patient, EMS. On arrival, patient is afebrile, tachycardic with A-fib RVR, normotensive, uncomfortable appearing, moving all extremities spontaneously. Full physical exam performed and significant for no abdominal tenderness, clear lungs bilaterally, Differential includes but is not limited to sepsis, uremia, pneumonia, UTI, gastroenteritis, intra-abdominal pathology, DKA, HHS. Patient was given 2 L IV fluid resuscitation for symptomatic management and correction of underlying abnormalities. Patient was not administered a full sepsis bolus due to history of heart failure and concern for over rapid correction of hyponatremia. Workup initiated including CBC CMP blood cultures UA urine culture COVID flu troponin mag acetone VBG troponin chest x-ray EKG. Patient initiated on vancomycin and Zosyn for empiric coverage of sepsis. Patient given Zofran IV. Patient was in electronic device monitor On re-evaluation, patient remains normotensive, in A-fib with RVR. Laboratory workup independently interpreted by me and significant for marked leukocytosis with white count of 25, hyponatremia with sodium of 124, likely somewhat artificially low given severe hyperglycemia with sugar in the 450s without evidence of DKA. Lactate elevated at 4.7. Bilirubin mildly elevated. Urine does not appear consistent with urinary tract infection. Patient was given 15 units of insulin. Imaging independently interpreted by me and significant for low lung volume which limit interpretation, but shows possible left suprahilar airspace disease. See radiology read for full review of final results. EKG independently interpreted by me and significant for irregular tachycardia, atrial fibrillation with rapid ventricular rate, rate greater than 120, conduction delay noted which is similar to prior EKG. CT abdomen pelvis was considered, but deemed unnecessary due to completely benign abdominal exam, and given patient reports no abdominal pain or other symptoms. Medications for rate control of A-fib RVR were considered, but in the setting of sepsis and dehydration, will treat the underlying condition first with IV antibiotic therapy and fluid rehydration. Insulin drip was considered, but deemed unnecessary given no DKA or HHS. Given patient history, exam and workup, patient's presentation most likely represents sepsis, dehydration, LORE, hyperglycemia, electrolyte derangements. Interactive discussion had with Dr. Amado on-call. Patient admitted under Dr. Ortiz. Patient placed on sliding scale. AM labs ordered. Procedures Risk/Benefits of Procedure(s) Were Explained: Yes Critical Care Critical Care Time Critical Care Time: Yes Attestation: On 03/09/23, the high probability of a clinically significant, sudden or life threatening deterioration of the following system(s) cardiac required my full and direct attention, intervention and personal management. The time I documented below is in addition to time spent performing reported procedures but includes the following listed in this critical care notation. Total Time Total Critical Care Time: 45
[2023-03-10] MEDS: ONDANSETRON 4MG/2ML VIAL 4 MG IV ×2 (00:51→11:58)
--- NOTE | 2023-03-10 01:27 | PC.NURSE ---
Patient arrived to floor via wheelchair from ED at 1:22.
[2023-03-10] MEDS: VANCOMYCIN/WATER FOR INJ (PEG) 1.5 GM/300 ML PIGGYBACK IV (01:29)
[2023-03-10] MEDS: LACTATED RINGERS 1000ML 1,000 ML 999 ML IV (02:22)
[2023-03-10 03:22] LABS: Reflex Lactic Add Lactic Reflex
[2023-03-10] MEDS: ACETAMINOPHEN 325MG TAB 1000 MG PO (03:34)
[2023-03-10 03:46] LABS: Troponin I 0.03 ng/ml (0.00-0.034)
[2023-03-10 03:51] LABS: Microscopic, Urine URINE MICROSCOPIC (MICROSCOPIC)
[2023-03-10 03:52] LABS: Appearance,Urine CLEAR (Clear); Bilirubin,Urine Negative (Negative); Blood, Urine 3+ (Negative); Color,Urine YELLOW (Yellow); Glucose,Urine (UA) 3+ (Negative); Ketones,Urine Negative (Negative); Leukocyte Esterase,Urine 2+ (Negative); Nitrate,Urine Negative (Negative); Protein,Urine 2+ (Negative); Urobilinogen,Urine 0.2 EU/dl (0.2)
[2023-03-10 04:09] LABS: Bacteria,Urine 1+ /lpf; WBC,Urine TNTC #/hpf (0-3)
[2023-03-10 04:12] LABS: Lactic Acid Follow Up (RFLX 1) 5.3 mmol/L (0.7-2.1)
[2023-03-10] MEDS: 0.9 % SODIUM CHLORIDE 25 ML 100 ML IV (04:21)
[2023-03-10] MEDS: PROMETHAZINE HCL 25MG/ML 1ML VIAL 25 MG IV (04:21)
[2023-03-10 05:23] LABS: Reflex Lactic (2 hrs) Add Lactic Reflex
[2023-03-10] MEDS: dilTIAZem 25MG/5ML VIAL 10 MG IV (05:54)
[2023-03-10] MEDS: METOPROLOL TARTRATE 50MG TABLET 100 MG PO (05:54)
[2023-03-10] MEDS: humaLOG 100 UNITS/ML 3ML VIAL (SSI) SQ ×3 (06:04→20:52)
[2023-03-10 06:05] LABS: POC Glucose,Bedside 289 (70-110)
[2023-03-10] MEDS: NOREPINEPHRINE BITARTRATE/D5W 8 MG/250 ML PLAST..BAG 7.5 MG IV (08:05)
--- NOTE | 2023-03-10 08:18 | P.CONPHA_ITS ---
Pharmacy Consult Date: 03/10/23 Time: 08:21 Referring provider: DR KHALIL Reason for Consult:: VANCOMYCIN DOSING CONSULT Allergies Allergy/AdvReac Type Severity Reaction Status Date / Time naproxen [From ALEVE] Allergy Intermediate S-SWELLS-OR Verified 01/02/23 14:05 AL/THROAT oxytetracycline Allergy Intermediate Verified 01/02/23 14:05 [From TERRAMYCIN] tetracycline [TETRACYCLINE] Allergy Intermediate NA-SEDATION Verified 01/02/23 14:05 Home Medications Medication Instructions Recorded Confirmed Type montelukast 10 mg tablet 10 mg PO HS Asthma 12/27/17 03/09/23 History rivaroxaban 20 mg tablet 20 mg PO HS afib 12/27/17 03/10/23 History cholecalciferol (vitamin D3) 50 2,000 unit PO DAILY Supplement 12/04/18 03/09/23 History mcg (2,000 unit) capsule fluticasone 250 mcg-salmeterol 50 1 inh inhalation BID Asthma 12/04/18 03/09/23 History mcg/dose blistr powdr for inhalation insulin degludec 200 unit/mL (3 33 unit SQ DAILY Diabetes 04/28/20 03/09/23 History mL) subcutaneous pen multivitamin 1 tab PO DAILY Supplement 04/28/20 03/10/23 History cyanocobalamin (vitamin B-12) 1,000 mcg PO DAILY Supplement 05/10/20 03/09/23 H istory 1,000 mcg tablet levothyroxine 200 mcg tablet 175 mcg PO DAILY thyroid 06/03/20 03/09/23 History liraglutide 0.6 mg/0.1 mL (18 mg/3 0.1 mg SQ DAILY 06/03/20 03/09/23 History mL) subcutaneous pen injector empagliflozin 10 mg tablet 10 mg PO DAILY #90 tabs 01/02/23 03/09/23 Rx (Jardiance) furosemide 20 mg tablet 20 mg PO DAILY #90 tabs 01/02/23 03/09/23 Rx spironolactone 50 mg tablet 50 mg PO DAILY #90 tabs 01/02/23 03/09/23 Rx (Aldactone) rosuvastatin 10 mg tablet 10 mg PO HS 01/20/23 03/09/23 History desvenlafaxine succinate 100 mg 100 mg PO DAILY #30 tabs 01/31/23 03/09/23 Rx tablet,extended release 24 hr (Pristiq) sacubitril 24 mg-valsartan 26 mg 1 tab PO BID #60 tabs 03/05/23 03/09/23 Rx tablet (Entresto) metoprolol tartrate 100 mg tablet 100 mg PO BID 03/10/23 03/10/23 History New Prescriptions to Start Prescriptions: Height: 1.55 m Weight: 95.527 kg Laboratory Results:: Laboratory Results - last 24 hr 03/09/23 23:12: WBC 25.0 H*, RBC 4.76, Hgb 15.4, Hct 47.2 H, MCV 99.1 H, MCH 32.3 H, MCHC 32.6, RDW 15.2, Plt Count 252, MPV 8.9, Neut % (Auto) 89.6 H, Lymph % (Auto) 5.8 L, [place] % (Auto) 4.4, Eos % (Auto) 0.0 L, Baso % (Auto) 0.2, Neut # (Auto) 22.4 H, Lymph # (Auto) 1.5, [place] # (Auto) 1.1 H, Eos # (Auto) 0.0, Baso # (Auto) 0.1, Total Counted 100, Neutrophils % (Manual) 92 H, Lymphocytes % (Manual) 7 L, Monocytes % (Manual) 1 L, Platelet Estimate Normal, RBC Morphology Normal, Sodium 124 L, Potassium 4.3, Chloride 85 L, Carbon Dioxide 25, Anion Gap 18.3 H, BUN 41 H, Creatinine 1.80 H, Estimated Creat Clear 46, Estimated GFR 28 L, Est GFR ( Amer) 34 L, Glucose 451 H*, Calcium 9.3, Magnesium 2.0, Total Bilirubin 1.9 H, AST 39 H, ALT 36, Alkaline Phosphatase 116, Troponin I 0.03, NT-Pro-B Natriuret Pep 9830 H, Total Protein 7.9, Albumin 4.0, Globulin 3.9 H, Albumin/Globulin Ratio 1.0 L, Lipase 75, Acetone Level None detected, SARS-CoV-2 (PCR) Not detected, Influenza A Untype (PCR) Not detected, Influenza Type B (PCR) Not detected 03/09/23 23:13: VBG pH 7.36, VBG pCO2 41.4, VBG pO2 28.3, VBG HCO3 22.7 L, VBG Total CO2 23.9, VBG O2 Saturation 54.1, VBG Base Excess -2.9 L 03/09/23 23:35: Lactate 4.7 H 03/10/23 02:30: Urine Color Yellow, Urine Appearance Clear, Urine pH 6.0, Ur Specific [place] 1.010, Urine Protein 2+, Urine Glucose (UA) 3+, Urine Ketones Negative, Urine Blood 3+, Urine Nitrate Negative, Urine Bilirubin Negative, Urine Urobilinogen 0.2, Ur Leukocyte Esterase 2+ A, Urine RBC None, Urine WBC Tntc, Ur Squamous Epith Cells 3-5, Urine Bacteria 1+ 03/10/23 02:51: Lactate 5.3 H 03/10/23 02:53: Troponin I 0.03 03/10/23 05:57: POC Glucose 289 H Medical History: Medical History (Updated 03/10/23 @ 01:30 by Grayson Pressley MD) Atrial fibrillation CHF (congestive heart failure) COPD (chronic obstructive pulmonary disease) HFrEF (heart failure with reduced ejection fraction) HTN (hypertension) Hyperlipidemia Hypothyroid Major depressive disorder Assessment and Plan Assessment and plan all Dx Assessment and Plan for all problems:: Pharmacokinetic dosing service Objective: Age: 67 yo Serum creatinine: 1.8 mg/dL Height: 61.0 Inches Weight (kg): 95.527 Diagnosis: SEPSIS Assessment: IBW (kg): 47.80 Dosing wt(kg): 95.527 Estimated Creatinine clearance (ml/min): 23.2 CRCL method: Cockcroft and Gault using ibw(default). Drug selected: Vancomycin Vd (liters): 76.4 (factor used: 0.8 L/kg) Jakub (hr-1): 0.024 Half life (hrs): 28.88 CLvanco=?? 1.834 L/hr Recommended dose: 1500 mg Interval: 36 hrs Infusion time (hrs): 2.0 Predicted peak (mcg/mL): 33.1 Predicted trough (mcg/mL): 14.64 Total body weight is being used for vancomycin dosing. Recommendations: Give Vancomycin 1500 mg q 36 hrs with an expected Cpeak of 33.1 mcg/ml and an expected Ctrough of 14.64 mcg/ml AUC 0-24 /LYNDON Data: LYNDON 0.5 mcg/mL:?? AUC/LYNDON:? 1090.5 LYNDON 1.0 mcg/mL:?? AUC/LYNDON:? 545.3 --------- LYNDON 1.5 mcg/mL:?? AUC/LYNDON:? 363.5 LYNDON 2.0 mcg/mL:?? AUC/LYNDON:? 272.6 Thank you for the consult
--- NOTE | 2023-03-10 08:34 | HMH.PHAINT1 ---
Pharmacy Intervention Comments: MEDICATION RECONCILIATION COMPLETE USING LIST FROM MOST RECENT CARDIOLOGY OFFICE VISIT AND EXTERNAL PHARMACY FILL HISTORY.
[2023-03-10 08:56] LABS: Basophils # 0.1 K/mm3 (0-0.2); Basophils % 0.3 % (0.1-2.0); Eosinophils % 0.1 % (0.1-12.0); Hematocrit 40.5 % (37.0-47.0); Lymphocytes # 1.4 K/mm3 (0.7-4.5); Lymphocytes % 4.7 % (10-50); Mean Corpuscular HGB Conc 33.5 g/dL (31.8-35.4); Mean Corpuscular Hemoglobin 32.7 pg (27.0-31.2); Mean Corpuscular Volume 97.5 fl (81-99); Mean Platelet Volume 9.1 fl (7.4-10.4); Monocytes # 1.5 K/mm3 (0.1-1.0); Monocytes % 5.3 % (1.7-9.3); Neutrophils # 25.7 K/mm3 (1.8-7.8); Neutrophils % 89.6 % (37.0-80.0); Platelet Count 197 K/mm3 (142-424); Red Blood Count 4.16 M/mm3 (4.20-5.40); Red Cell Distribution Width 15.3 % (11.5-17.5); White Blood Count 28.6 K/mm3 (4.8-10.8)
[2023-03-10 08:57] LABS: MANUAL DIFFERENTIAL MANUAL DIFFERENTIAL (MANUAL DIFF)
[2023-03-10 08:58] LABS: Hemoglobin 13.6 g/dL (12.2-16.2)
[2023-03-10] MEDS: 0.9 % SODIUM CHLORIDE 1000ML 1,000 ML 999 ML IV (09:01)
[2023-03-10 09:07] LABS: Lactic Acid Follow up (RFLX 2) 4.6 mmol/L (0.7-2.1)
[2023-03-10 09:17] LABS: Alanine Aminotransferase 28 U/L (12-78); Albumin Level 3.2 g/dl (3.5-5.0); Alkaline Phosphatase 88 U/L (38-126); Anion Gap 18.5 mEq/L (5-15); Aspartate Amino Transferase 32 U/L (14-36); Bilirubin,Total 1.5 mg/dl (0.2-1.3); Blood Urea Nitrogen 39 mg/dl (7-17); Calcium 8.4 mg/dl (8.4-10.2); Carbon Dioxide 25 mmol/L (22.0-30.0); Chloride 87 mmol/L (98-107); Creatinine Clearance Estimated 36 mL/min (50-200); Estimated Glomerular Filt Rate 21 ml/min (>60); GFR (African American) 26 ML/MIN (>60); Globulin 3.3 g/dL (1.3-3.2); Glucose 153 mg/dl (74-100); Potassium 3.5 mmoL/L (3.5-5.1); Sodium 127 mmol/L (136-145); Total Protein,Serum 6.5 g/dl (6.3-8.2)
[2023-03-10 09:46] LABS: Lymphocytes % 10 % (10-50); Monocytes % 3 % (2-9); Neutrophils % 87 % (42-76); Platelet Estimate Normal; RBC Morphology Normal; Total Cells Counted 100
[2023-03-10] MEDS: LACTATED RINGERS 1000ML 1,000 ML 250 ML IV (09:57)
--- NOTE | 2023-03-10 10:47 | P.HP_ITS ---
History of Present Illness *Admission Date: 03/10/23 *Reason for visit:: Vomiting *History of present illness: Ms. Dunn is a 67 year old female patient of [facility] with a fairly complicated medical history. She has a long standing history of CHF, A. fib and insulin dependent type 2 diabetes. She presented to [facility] ER last night complaining of a 3 day history of nausea and vomiting. She states the emesis consisted of ingested food and drink. She is unsure what caused her to be so sick. She denies diarrhea. She did have subjective fever and chills. [facility] Disclaimer: The information contained in this section may have been updated after the patient was seen, as this information can be updated by other users. Medical History (Updated 03/10/23 @ 11:17 by Marciano Ortiz MD) Allergic rhinitis Asthma-COPD overlap syndrome Atrial fibrillation BMI 39.0-39.9,adult CHF (congestive heart failure) Chronic low back pain COPD (chronic obstructive pulmonary disease) Esophageal stricture HFrEF (heart failure with reduced ejection fraction) HTN (hypertension) Hyperlipidemia Hypothyroid Irritable bowel syndrome with diarrhea Major depressive disorder Non morbid obesity Osteoarthritis of both knees Surgical History (Updated 03/10/23 @ 10:56 by Marciano Ortiz MD) History of cholecystectomy History of right oophorectomy History of tubal ligation S/P dilatation of esophageal stricture Family History (Updated 03/10/23 @ 02:02 by Vicky Floyd RN) A-fib Family/Other Breast cancer Family/Other Emphysema lung Family/Other Social History (Updated 03/10/23 @ 02:04 by Vicky Floyd RN) Smoking Status: Former smoker years smoked: 15 how long ago did patient quit smokin quit status: quit date established second hand exposure: No alcohol intake: former counseling given: No substance use type: denies use counseling given: No current occupational status: disabled Travel in the last 8 weeks: Inside the [place] adopted: No caregiver/support person: No foster care: No household members: family and none housing: house lives independently: Yes marital status: number of children: 3 number of grandchildren: 11 education level: high school current occupational exposures/hazards: No caffeine: Yes physical activity: none working smoke detector in home: Yes fire extinguisher in home: No carbon monox detector in home: No firearms in home: No do you feel safe at home: Yes victim of physical abuse: No victim of emotional abuse: No victim of sexual abuse: No would you like helpful sources: No Review of Systems Constitutional Constitutional: Denies chills and Denies fever(s) ENT Ears, Nose, Mouth, and Throat: Denies dizziness *Cardiovascular Cardiovascular: Denies chest pain and Denies dyspnea *Respiratory Respiratory: Denies dyspnea *Gastrointestinal Gastrointestinal: Reports as per HPI *Genitourinary Genitourinary: Denies difficulty voiding *Musculoskeletal Musculoskeletal: Denies arthralgias *Neurologic Neurologic: Denies dizziness Meds Home Medications and Allergies Home Medications Medication Instructions Recorded Confirmed Type montelukast 10 mg tablet 10 mg PO HS Asthma 12/27/17 03/09/23 History rivaroxaban 20 mg tablet 20 mg PO QPMWITHMEAL afib 12/27/17 03/10/23 History cholecalciferol (vitamin D3) 50 2,000 unit PO DAILY Supplement 12/04/18 03/09/23 History mcg (2,000 unit) capsule fluticasone 250 mcg-salmeterol 50 1 inh inhalation BIDRT Copd 12/04/18 03/10/23 History mcg/dose blistr powdr for inhalation insulin degludec 200 unit/mL (3 33 unit SQ DAILY Diabetes 04/28/20 03/09/23 History mL) subcutaneous pen multivitamin 1 tab PO DAILY Supplement 04/28/20 03/10/23 History cyanocobalamin (vitamin B-12) 1,000 mcg PO DAILY Supplement 05/10/20 03/09/23 History 1,000 mcg tablet liraglutide 0.6 mg/0.1 mL (18 mg/3 1.8 mg SQ DAILY Diabetes 06/03/20 03/10/23 History mL) subcutaneous pen injector rosuvastatin 10 mg tablet 10 mg PO HS Cholesterol 01/20/23 03/09/23 History desvenlafaxine succinate 100 mg 100 mg PO DAILY URINARY SYMPTOMS 03/10/23 03/09/23 History tablet,extended release 24 hr (Pristiq) empagliflozin 10 mg tablet 10 mg PO DAILY Heart Failure 03/10/23 03/09/23 History (Jardiance) furosemide 20 mg tablet 20 mg PO DAILY Fluid 03/10/23 03/09/23 History levothyroxine 175 mcg tablet 175 mcg PO DAILYDM THYROID 03/10/23 03/10/23 History metoprolol tartrate 100 mg tablet 100 mg PO BID High Blood Pressure 03/10/23 03/10/23 History sacubitril 24 mg-valsartan 26 mg 1 tab PO BID High Blood Pressure 03/10/23 03/09/23 History tablet (Entresto) spironolactone 50 mg tablet 50 mg PO DAILY Fluid 03/10/23 03/09/23 History (Aldactone) New Prescriptions to Start Prescriptions: Allergies Allergy/AdvReac Type Severity Reaction Status Date / Time naproxen [From ALEVE] Allergy Intermediate S-SWELLS-OR Verified 01/02/23 14:05 AL/THROAT oxytetracycline Allergy Intermediate Verified 01/02/23 14:05 [From TERRAMYCIN] tetracycline [TETRACYCLINE] Allergy Intermediate NA-SEDATION Verified 01/02/23 14:05 Exam Data for Last 24 hours Vital signs and Labs for Last 24 Hours: Temp Pulse Resp BP Pulse Ox O2 Del Method 98.3 F 87 18 62/38 L 98 Room Air 03/10/23 07:40 03/10/23 08:20 03/10/23 07:40 03/10/23 07:40 03/10/23 08:20 03/10/23 08:20 Laboratory Results - last 24 hr 03/09/23 23:12: WBC 25.0 H*, RBC 4.76, Hgb 15.4, Hct 47.2 H, MCV 99.1 H, MCH 32.3 H, MCHC 32.6, RDW 15.2, Plt Count 252, MPV 8.9, Neut % (Auto) 89.6 H, Lymph % (Auto) 5.8 L, [place] % (Auto) 4.4, Eos % (Auto) 0.0 L, Baso % (Auto) 0.2, Neut # (Auto) 22.4 H, Lymph # (Auto) 1.5, [place] # (Auto) 1.1 H, Eos # (Auto) 0.0, Baso # (Auto) 0.1, Total Counted 100, Neutrophils % (Manual) 92 H, Lymphocytes % (Manual) 7 L, Monocytes % (Manual) 1 L, Platelet Estimate Normal, RBC Morphology Normal, Sodium 124 L, Potassium 4.3, Chloride 85 L, Carbon Dioxide 25, Anion Gap 18.3 H, BUN 41 H, Creatinine 1.80 H, Estimated Creat Clear 46, Estimated GFR 28 L, Est GFR ( Amer) 34 L, Glucose 451 H*, Calcium 9.3, Magnesium 2.0, Total Bilirubin 1.9 H, AST 39 H, ALT 36, Alkaline Phosphatase 116, Troponin I 0.03, NT-Pro-B Natriuret Pep 9830 H, Total Protein 7.9, Albumin 4.0, Globulin 3.9 H, Albumin/Globulin Ratio 1.0 L, Lipase 75, Acetone Level None detected, SARS-CoV-2 (PCR) Not detected, Influenza A Untype (PCR) Not detected, Influenza Type B (PCR) Not detected 03/09/23 23:13: VBG pH 7.36, VBG pCO2 41.4, VBG pO2 28.3, VBG HCO3 22.7 L, VBG Total CO2 23.9, VBG O2 Saturation 54.1, VBG Base Excess -2.9 L 03/09/23 23:35: Lactate 4.7 H 03/10/23 02:30: Urine Color Yellow, Urine Appearance Clear, Urine pH 6.0, Ur Specific [place] 1.010, Urine Protein 2+, Urine Glucose (UA) 3+, Urine Ketones Negative, Urine Blood 3+, Urine Nitrate Negative, Urine Bilirubin Negative, Urine Urobilinogen 0.2, Ur Leukocyte Esterase 2+ A, Urine RBC None, Urine WBC Tn tc, Ur Squamous Epith Cells 3-5, Urine Bacteria 1+ 03/10/23 02:51: Lactate 5.3 H 03/10/23 02:53: Troponin I 0.03 03/10/23 05:57: POC Glucose 289 H 03/10/23 07:40: WBC 28.6 H*, RBC 4.16 L, Hgb 13.6 D, Hct 40.5, MCV 97.5, MCH 32.7 H, MCHC 33.5, RDW 15.3, Plt Count 197, MPV 9.1, Neut % (Auto) 89.6 H, Lymph % (Auto) 4.7 L, [place] % (Auto) 5.3, Eos % (Auto) 0.1, Baso % (Auto) 0.3, Neut # (Auto) 25.7 H, Lymph # (Auto) 1.4, [place] # (Auto) 1.5 H, Eos # (Auto) 0.0, Baso # (Auto) 0.1, Total Counted 100, Neutrophils % (Manual) 87 H, Lymphocytes % (Manual) 10, Monocytes % (Manual) 3, Platelet Estimate Normal, RBC Morphology Normal, Sodium 127 L, Potassium 3.5, Chloride 87 L, Carbon Dioxide 25, Anion Gap 18.5 H, BUN 39 H, Creatinine 2.30 H D, Estimated Creat Clear 36, Estimated GFR 21 L, Est GFR ( Amer) 26 L D, Glucose 153 H D, Lactate 4.6 H, Calcium 8.4, Total Bilirubin 1.5 H, AST 32, ALT 28, Alkaline Phosphatase 88, Total Protein 6.5, Albumin 3.2 L D, Globulin 3.3 H, Albumin/Globulin Ratio 1.0 L I & O for Last 24 hours: Intake & Output 03/07/23 03/08/23 03/09/23 03/10/23 23:59 23:59 23:59 23:59 Intake Total 26.000 / 26.000 Output Total Balance -4.000 / -4.000 Weight 210 lb 210 lb 9.616 oz Constitutional Constitutional: no acute distress Comments: Appears not to feel well *Routine HEENT Exam Head: Present normocephalic Eye: Present EOMI and PERRL ENT: Present mucous membranes moist *Routine Neck Exam Neck: Present supple; Absent lymphadenopathy *Routine Respiratory Exam Respiratory: Present CTA bilaterally *Routine Cardiovascular Exam Cardiovascular: Present irregularly irregular *Routine Abdominal Exam Abdominal: Present soft and normoactive bowel sounds; Absent tenderness *Routine Rectal Exam Rectal:: deferred *Routine Genitalia Exam Genitalia:: deferred *Routine Extremities Exam Extremities: Absent cyanosis, clubbing or edema *Routine Skin Exam Skin: Present dry and warm; Absent rash *Routine Neurological Exam Neurological: Present alert and oriented X3 Assessment and Plan *Assessment and plan (1) Vomiting: Status: Acute Qualifiers: Nausea presence: with nausea Vomiting type: unspecified Qualified Code(s): R11.2 - Nausea with vomiting, unspecified Category: Medical Code(s): R11.10 - Vomiting, unspecified (2) Acute dehydration: Status: Acute Category: Medical Code(s): E86.0 - Dehydration (3) Leucocytosis: Status: Acute Qualifiers: Leukocytosis type: unspecified Qualified Code(s): D72.829 - Elevated white blood cell count, unspecified Category: Medical Code(s): D72.829 - Elevated white blood cell count, unspecified (4) LORE (acute kidney injury): Status: Acute Category: Medical Code(s): N17.9 - Acute kidney failure, unspecified (5) Sepsis: Status: Acute Qualifiers: Acute renal failure type: unspecified Sepsis acute organ dysfunction status: with acute organ dysfunction Sepsis type: sepsis due to unspecified organism Severe sepsis acute organ dysfunction type: acute renal failure Severe sepsis shock status: without septic shock Qualified Code(s): A41.9 - Sepsis, unspecified organism; R65.20 - Severe sepsis without septic shock; N17.9 - Acute kidney failure, unspecified Category: Medical Code(s): A41.9 - Sepsis, unspecified organism (6) Elevated lactic acid level: Status: Acute Category: Medical Code(s): R79.89 - Other specified abnormal findings of blood chemistry (7) Atrial fibrillation with rapid ventricular response: Status: Acute Category: Medical Code(s): I48.91 - Unspecified atrial fibrillation (8) Acute hyperglycemia: Status: Acute Category: Medical Code(s): R73.9 - Hyperglycemia, unspecified (9) DM2 (diabetes mellitus, type 2): Status: Acute Qualifiers: Diabetes mellitus complication status: without complication 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 operator insulin use: with terminal operator use Qualified Code(s): E11.9 - Type 2 diabetes mellitus without complications; 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 Category: Medical Code(s): E11.9 - Type 2 diabetes mellitus without complications (10) Acute hyponatremia: Status: Acute Category: Medical Code(s): E87.1 - Hypo-osmolality and hyponatremia (11) HFrEF (heart failure with reduced ejection fraction): Status: Acute Category: Medical Code(s): I50.20 - Unspecified systolic (congestive) heart failure (12) HTN (hypertension): Status: Chronic Qualifiers: Hypertension type: essential hypertension Qualified Code(s): I10 - Essential (primary) hypertension Category: Medical Code(s): I10 - Essential (primary) hypertension (13) Elevated brain natriuretic peptide (BNP) level: Status: Acute Category: Medical Code(s): R79.89 - Other specified abnormal findings of blood chemistry (14) Elevated bilirubin: Status: Acute Category: Medical Code(s): R17 - Unspecified jaundice (15) Non morbid obesity: Status: Acute Category: Medical Code(s): E66.9 - Obesity, unspecified (16) BMI 39.0-39.9,adult: Status: Acute Category: Medical Code(s): Z68.39 - Body mass index [BMI] 39.0-39.9, adult (17) Major depressive disorder: Status: Acute Qualifiers: Major depression recurrence: unspecified whether recurrent Active/Remission status: remission status unspecified Qualified Code(s): F32.9 - Major depressive disorder, single episode, unspecified Category: Medical Code(s): F32.9 - Major depressive disorder, single episode, unspecified (18) Hypothyroid: Status: Chronic Qualifiers: Hypothyroidism type: unspecified Qualified Code(s): E03.9 - Hypothyroidism, unspecified Category: Medical Code(s): E03.9 - Hypothyroidism, unspecified Plan Patient admitted to [facility] for further evaluation. She was given IVF and antibiotics. She went into A. fib with RVR and was given treatment. Her blood pressure became low and she was started on Levophed and given more IVF. Continue current treatment, should be able to wean Levophed later today, will resume some of her home meds and will await cultures.
[2023-03-10 11:22] LABS: Phosphorous 2.5 mg/dl (2.5-4.5)
[2023-03-10] MEDS: 0.9 % SODIUM CHLORIDE 1000ML 1,000 ML 200 ML IV ×3 (12:00→22:38)
[2023-03-10] MEDS: CEFEPIME HCL 2 GM in 0.9 % SODIUM CHLORIDE 100 ML IV ×2 (12:00→20:53)
[2023-03-10] MEDS: INSULIN GLARGINE 100 UNITS/ML 10ML VIAL 10 UNIT SQ (12:07)
[2023-03-10] MEDS: LEVOTHYROXINE 175MCG (0.175MG) TAB 175 MCG PO (12:12)
[2023-03-10] MEDS: POTASSIUM CHLORIDE 10MEQ CAPSULE.ER 10 MEQ PO (12:12)
[2023-03-10 12:20] LABS: POC Glucose,Bedside 200 (70-110)
[2023-03-10] MEDS: ACETAMINOPHEN 500MG TAB 1000 MG PO (13:55)
[2023-03-10] MEDS: NOREPINEPHRINE BITARTRATE/D5W 8 MG/250 ML PLAST..BAG 18.75 MG IV (16:27)
[2023-03-10 16:33] LABS: POC Glucose,Bedside 276 (70-110)
--- NOTE | 2023-03-10 16:45 | PC.NURSE ---
pt has remained a/o x 4 this shift and has been friendly and joking with staff. pt lung sounds are clear but slightly diminished. no crackles or rhonchi noted in [place]inez. pt bowel sounds are active in all quads. pt levophed weaned as tolerated. pt tolerating o2, skinner catheter and oxygen well. nad noted.
[2023-03-10] MEDS: RIVAROXABAN 10MG TABLET 20 MG PO (17:21)
[2023-03-10 20:25] LABS: POC Glucose,Bedside 343 (70-110)
[2023-03-10] MEDS: dilTIAZem 30MG TABLET 30 MG PO (21:47)
[2023-03-11] VITALS (44 sets, daily range): BP systolic 75–163; BP diastolic 28–89; PULSE 83–142; RESP 18–31; TEMP 36.9–37.6; O2SAT 89–100; BMI 39.7
[2023-03-11] MEDS: NOREPINEPHRINE BITARTRATE/D5W 8 MG/250 ML PLAST..BAG 18.75 MG IV (03:26)
[2023-03-11] MEDS: dilTIAZem 30MG TABLET 30 MG PO ×4 (03:30→20:11)
[2023-03-11] MEDS: 0.9 % SODIUM CHLORIDE 1000ML 1,000 ML 200 ML IV ×3 (03:42→14:51)
[2023-03-11] MEDS: humaLOG 100 UNITS/ML 3ML VIAL (SSI) SQ ×4 (06:04→20:19)
[2023-03-11] MEDS: LEVOTHYROXINE 175MCG (0.175MG) TAB 175 MCG PO (06:05)
--- NOTE | 2023-03-11 06:08 | PC.NURSE ---
Patient has rested well this shift with no complaints of pain. Saravia is still in place draining adequate amounts of yellow clear urine. Levophed has been titrated down per protocol, currently at 8mcg/min. Lungs are clear to auscultation, BS hypoactive X4 did c/o lower abdominal pain at beginning of shift, no complaints since. Bedside table, water pitcher, call allen and personal belongings all within reach.
[2023-03-11 06:30] LABS: POC Glucose,Bedside 184 (70-110)
[2023-03-11 08:04] LABS: Alanine Aminotransferase 24 U/L (12-78); Albumin Level 3.2 g/dl (3.5-5.0); Albumin/Globulin Ratio 0.8 (1.1-1.8); Alkaline Phosphatase 116 U/L (38-126); Anion Gap 17.5 mEq/L (5-15); Aspartate Amino Transferase 39 U/L (14-36); Bilirubin,Total 1.2 mg/dl (0.2-1.3); Blood Urea Nitrogen 41 mg/dl (7-17); Carbon Dioxide 20 mmol/L (22.0-30.0); Chloride 101 mmol/L (98-107); Creatinine Clearance Estimated 42 mL/min (50-200); Estimated Glomerular Filt Rate 25 ml/min (>60); GFR (African American) 30 ML/MIN (>60); Globulin 4.2 g/dL (1.3-3.2); Glucose 210 mg/dl (74-100); Potassium 4.5 mmoL/L (3.5-5.1); Sodium 134 mmol/L (136-145); Total Protein,Serum 7.4 g/dl (6.3-8.2)
[2023-03-11 08:53] LABS: Basophils # 0.1 K/mm3 (0-0.2); Basophils % 0.2 % (0.1-2.0); Eosinophils # 0.2 K/mm3 (0.0-0.4); Eosinophils % 0.7 % (0.1-12.0); Hematocrit 39.1 % (37.0-47.0); Hemoglobin 13.1 g/dL (12.2-16.2); Lymphocytes % 4.5 % (10-50); Mean Corpuscular HGB Conc 33.4 g/dL (31.8-35.4); Mean Corpuscular Volume 98.9 fl (81-99); Mean Platelet Volume 9.3 fl (7.4-10.4); Monocytes # 0.9 K/mm3 (0.1-1.0); Monocytes % 3.7 % (1.7-9.3); Platelet Count 111 K/mm3 (142-424); Red Blood Count 3.96 M/mm3 (4.20-5.40); Red Cell Distribution Width 15.3 % (11.5-17.5); White Blood Count 23.1 K/mm3 (4.8-10.8)
--- NOTE | 2023-03-11 08:55 | P.PN_ITS ---
Subjective *Date: 03/11/23 *Time: 09:14 Interval history: Patient states she is better today. She continues to have some chills. She is not much interested in eating. She has had no current nausea or vomiting. She denies chest pain and shortness of breath. She has been to the bathroom and her bowels did move. She states this made her feel better. She remains on levo drip. Nurses are weaning. White blood cell count is decreased to 23,100 with a hemoglobin of 13.1 hematocrit 39.1. Sodium 134 potassium 4.5 BUN is 41 with a creatinine of 2. Medical Exam Vital signs and Labs for Last 24 Hours: Vital Signs Temp Pulse Pulse Resp BP Pulse Ox O2 Del Method 03/11/23 08:00 99.6 F 03/11/23 08:00 123 H 21 102/89 L 99 Nasal Cannula 03/11/23 06:45 101 H 18 95/67 L 100 Nasal Cannula 03/11/23 06:30 100 H 18 135/46 L 99 03/11/23 06:28 103 H 18 104/64 L 98 Nasal Cannula 03/11/23 06:00 111 H 18 94/60 L 98 Nasal Cannula 03/11/23 04:00 109 H 18 125/66 96 Nasal Cannula 03/11/23 00:00 102 H 03/11/23 03:45 110 H 22 97/45 L 94 L Nasal Cannula 03/11/23 03:30 124 H 18 100/72 L 97 Nasal Cannula 03/11/23 03:00 122 H 18 112/79 98 Nasal Cannula 03/11/23 02:00 104 H 18 97/60 L 94 L Nasal Cannula 03/11/23 00:00 111 H 20 122/62 93 L Nasal Cannula 03/10/23 20:00 106 H 03/10/23 23:00 117 H 18 114/56 L 95 Nasal Cannula 03/10/23 22:45 111 H 18 117/67 96 Nasal Cannula 03/10/23 22:30 99.8 F H 106 H 156/58 H 96 Nasal Cannula 03/10/23 22:00 114 H 18 142/68 H 97 Nasal Cannula 03/10/23 21:46 126 H 03/10/23 20:00 96 H 20 105/43 L 97 Nasal Cannula 03/10/23 20:00 115 H 97 Nasal Cannula 03/10/23 18:45 111 H 22 96/41 L 90 L Nasal Cannula 03/10/23 18:53 Nasal Cannula 03/10/23 18:30 114 H 22 101/66 L 93 L Nasal Cannula 03/10/23 18:15 85 18 103/73 L 99 Nasal Cannula 03/10/23 18:00 116 H 18 109/66 L 94 L Nasal Cannula 03/10/23 17:55 107 H 20 95/54 L 100 Nasal Cannula 03/10/23 17:45 111 H 18 115/66 91 L Nasal Cannula 03/10/23 17:15 115 H 18 91/49 L 96 Nasal Cannula 03/10/23 17:03 114 H 16 82/29 L 97 Nasal Cannula 03/10/23 16:45 99 H 16 88/49 L 93 L Nasal Cannula 03/10/23 16:46 Nasal Cannula 03/10/23 16:31 113 H 18 78/45 L 91 L Nasal Cannula 03/10/23 16:30 98 H 18 72/47 L 92 L Nasal Cannula 03/10/23 16:00 115 H 03/10/23 16:08 117 H 18 123/64 100 Nasal Cannula 03/10/23 15:45 101 H 18 97/61 L 96 Nasal Cannula 03/10/23 15:30 103 H 20 126/65 97 Nasal Cannula 03/10/23 14:45 102 H 20 96/62 L 95 Nasal Cannula 03/10/23 14:30 108 H 16 122/51 L 90 L Nasal Cannula 03/10/23 14:07 99.2 F 119 H 18 117/71 93 L Room Air 03/10/23 13:30 99 H 20 118/82 97 Room Air 03/10/23 13:00 110 H 18 107/66 L 94 L Room Air 03/10/23 12:30 105 H 18 134/61 88 L Room Air 03/10/23 12:00 100 H 18 130/78 96 Room Air 03/10/23 11:40 102 H 18 120/77 96 Room Air 03/10/23 11:33 101 H 16 102/51 L 95 Room Air 03/10/23 11:20 104 H 18 94/52 L 98 Room Air 03/10/23 11:00 86 18 116/63 97 Room Air 03/10/23 10:50 90 22 91/55 L 97 Room Air 03/10/23 10:30 96 H 18 96/52 L 89 L Room Air 03/10/23 10:20 84 18 109/62 L 94 L Room Air 03/10/23 10:10 95 H 18 97/73 L 95 Room Air 03/10/23 09:50 91 H 18 95/54 L 97 Room Air 03/10/23 09:45 96 H 20 85/31 L 97 Room Air 03/10/23 09:40 94 H 18 88/65 L 95 Room Air 03/10/23 09:35 89 16 98/69 L 96 Room Air 03/10/23 09:30 101 H 16 92/35 L 96 Room Air 03/10/23 09:25 91 H 16 79/35 L 98 Room Air 03/10/23 09:20 91 H 18 62/42 L 97 Room Air 03/10/23 09:15 92 H 18 75/47 L 95 Room Air 03/10/23 09:10 106 H 18 67/53 L 95 Room Air 03/10/23 09:08 94 H 18 71/55 L 97 Room Air 03/10/23 09:05 84 16 54/43 L 97 Room Air 03/10/23 09:02 100 H 18 78/36 L 95 Room Air 03/10/23 09:01 104 H 18 70/31 L 96 Room Air 03/10/23 09:00 86 18 69/47 L 96 Room Air 03/10/23 08:57 89 20 72/56 L 97 Room Air 03/10/23 10:00 93 H 18 88/53 L 96 Room Air 03/10/23 15:20 100.8 F H 03/10/23 15:21 115 H 92 L Nasal Cannula 03/10/23 15:20 Nasal Cannula 03/10/23 12:00 100 H 03/10/23 13:09 Room Air 03/10/23 11:15 Room Air 03/10/23 09:00 Room Air 03/10/23 11:07 98.3 F O2 Flow Rate 03/11/23 08:00 03/11/23 08:00 2 03/11/23 06:45 2 03/11/23 06:30 2 03/11/23 06:28 2 03/11/23 06:00 2 03/11/23 04:00 2 03/11/23 00:00 03/11/23 03:45 2 03/11/23 03:30 2 03/11/23 03:00 2 03/11/23 02:00 2 03/11/23 00:00 2 03/10/23 20:00 03/10/23 23:00 2 03/10/23 22:45 2 03/10/23 22:30 2 03/10/23 22:00 2 03/10/23 21:46 03/10/23 20:00 2 03/10/23 20:00 2 03/10/23 18:45 2 03/10/23 18:53 2 03/10/23 18:30 2 03/10/23 18:15 2 03/10/23 18:00 2 03/10/23 17:55 2 03/10/23 17:45 2 03/10/23 17:15 2 03/10/23 17:03 3 03/10/23 16:45 3 03/10/23 16:46 3 03/10/23 16:31 3 03/10/23 16:30 3 03/10/23 16:00 03/10/23 16:08 3 03/10/23 15:45 3 03/10/23 15:30 3 03/10/23 14:45 3 03/10/23 14:30 3 03/10/23 14:07 03/10/23 13:30 03/10/23 13:00 03/10/23 12:30 03/10/23 12:00 03/10/23 11:40 03/10/23 11:33 03/10/23 11:20 03/10/23 11:00 03/10/23 10:50 03/10/23 10:30 03/10/23 10:20 03/10/23 10:10 03/10/23 09:50 03/10/23 09:45 03/10/23 09:40 03/10/23 09:35 03/10/23 09:30 03/10/23 09:25 03/10/23 09:20 03/10/23 09:15 03/10/23 09:10 03/10/23 09:08 03/10/23 09:05 03/10/23 09:02 03/10/23 09:01 03/10/23 09:00 03/10/23 08:57 03/10/23 10:00 03/10/23 15:20 03/10/23 15:21 3 03/10/23 15:20 3 03/10/23 12:00 03/10/23 13:09 03/10/23 11:15 03/10/23 09:00 03/10/23 11:07 Intake and Output 03/10/23 03/11/23 03/11/23 19:59 03:59 11:59 Intake Total 1670.188 / 3809.374 5542.876 / 3715.064 113.75 / 3828.814 Output Total 1000 / 1000 2200 / 3200 300 / 3500 Balance 670.188 / 670.188 -155.124 / 515.064 -186.25 / 328.814 Intake: Intake, Oral Amount 480 / 480 120 / 600 60 / 660 Intake, Total IV Amount 1190.188 / 0829.002 5639.876 / 3115.064 53.75 / 3168.814 0.9 % Sodium Chloride 1000ML 1, 923 / 923 1600 / 2523 000 ml @ 200 mls/hr IV .Q5H REPLACED BY [facility] Rx#:[id number] Cefepime HCl 2 gm In 0.9 % 100 / 100 100 / 200 Sodium Chloride 100 ml @ 200 mls/hr IV Q12H REPLACED BY [facility] Rx#:[id number] Output: Output, Urine Amount 1000 / 1000 300 / 1300 Output, Urine Amount (Catheter) 2200 / 2200 [place] 2200 / 2200 Other: Number of Unmeasured Voids 0 Number of Bowel Movements 1 Weight 210 lb 9.6 oz Patient Weight 03/11/23 11:59 Weight 210 lb 9.6 oz Laboratory Results - last 24 hr 03/10/23 07:40: WBC 28.6 H*, RBC 4.16 L, Hgb 13.6 D, Hct 40.5, MCV 97.5, MCH 32.7 H, MCHC 33.5, RDW 15.3, Plt Count 197, MPV 9.1, Neut % (Auto) 89.6 H, Lymph % (Auto) 4.7 L, [place] % (Auto) 5.3, Eos % (Auto) 0.1, Baso % (Auto) 0.3, Neut # (Auto) 25.7 H, Lymph # (Auto) 1.4, [place] # (Auto) 1.5 H, Eos # (Auto) 0.0, Baso # (Auto) 0.1, Total Counted 100, Neutrophils % (Manual) 87 H, Lymphocytes % (Manual) 10, Monocytes % (Manual) 3, Platelet Estimate Normal, RBC Morphology Normal, Sodium 127 L, Potassium 3.5, Chloride 87 L, Carbon Dioxide 25, Anion Gap 18.5 H, BUN 39 H, Creatinine 2.30 H D, Estimated Creat Clear 36, Estimated GFR 21 L, Est GFR ( Amer) 26 L D, Glucose 153 H D, Lactate 4.6 H, Calcium 8.4, Phosphorus 2.5, Total Bilirubin 1.5 H, AST 32, ALT 28, Alkaline Phosphatase 88, Total Protein 6.5, Albumin 3.2 L D, Globulin 3.3 H, Albumin/Globulin Ratio 1.0 L 03/10/23 12:10: POC Glucose 200 H 03/10/23 16:17: POC Glucose 276 H 03/10/23 20:18: POC Glucose 343 H* 03/11/23 05:57: POC Glucose 184 H 03/11/23 06:45: Sodium 134 L, Potassium 4.5 D, Chloride 101, Carbon Dioxide 20 L, Anion Gap 17.5 H, BUN 41 H, Creatinine 2.00 H, Estimated Creat Clear 42, Estimated GFR 25 L, Est GFR ( Amer) 30 L, Glucose 210 H D, Calcium 8.0 L, Total Bilirubin 1.2, AST 39 H, ALT 24, Alkaline Phosphatase 116, Total Protein 7.4, Albumin 3.2 L, Globulin 4.2 H, Albumin/Globulin Ratio 0.8 L I & O for Labs for Last 24 Hours: Intake & Output 03/08/23 03/09/23 03/10/23 03/11/23 11:59 11:59 11:59 11:59 Intake Total 2079.437 / 2079.437 3828.814 / 3828.814 Output Total 3500 / 3500 Balance 2049.437 / 2049.437 328.814 / 328.814 Weight 210 lb 9.616 oz 210 lb 9.6 oz Constitutional: Present no acute distress Comment:: Lying on her side and trying to sleep. Respiratory: Present CTA bilaterally (Anteriorly and posteriorly) Cardiac: Present Regular Rhythm GI: Present soft and normal bowel sounds; Absent distention, tenderness or guarding Extremities: Present edema (Trace bilateral lower extremities); Absent tenderness Neuro: Present alert, awake and oriented x 3 Assessment and Plan *Assessment and plan (1) Vomiting: Status: Acute Qualifiers: Nausea presence: with nausea Vomiting type: unspecified Qualified Code(s): R11.2 - Nausea with vomiting, unspecified Category: Medical Code(s): R11.10 - Vomiting, unspecified (2) Acute dehydration: Status: Acute Category: Medical Code(s): E86.0 - Dehydration (3) Leucocytosis: Status: Acute Qualifiers: Leukocytosis type: unspecified Qualified Code(s): D72.829 - Elevated white blood cell count, unspecified Category: Medical Code(s): D72.829 - Elevated white blood cell count, unspecified (4) LORE (acute kidney injury): Status: Acute Category: Medical Code(s): N17.9 - Acute kidney failure, unspecified (5) Sepsis: Status: Acute Qualifiers: Acute renal failure type: unspecified Sepsis acute organ dysfunction status: with acute organ dysfunction Sepsis type: sepsis due to unspecified organism Severe sepsis acute organ dysfunction type: acute renal failure Severe sepsis shock status: without septic shock Qualified Code(s): A41.9 - Sepsis, unspecified organism; R65.20 - Severe sepsis without septic shock; N17.9 - Acute kidney failure, unspecified Category: Medical Code(s): A41.9 - Sepsis, unspecified organism (6) Elevated lactic acid level: Status: Acute Category: Medical Code(s): R79.89 - Other specified abnormal findings of blood chemistry (7) Atrial fibrillation with rapid ventricular response: Status: Acute Category: Medical Code(s): I48.91 - Unspecified atrial fibrillation (8) Acute hyperglycemia: Status: Acute Category: Medical Code(s): R73.9 - Hyperglycemia, unspecified (9) DM2 (diabetes mellitus, type 2): Status: Acute Qualifiers: Diabetes mellitus complication status: without complication 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: with termite renewal inspector use Qualified Code(s): E11.9 - Type 2 diabetes mellitus without complications; 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 Category: Medical Code(s): E11.9 - Type 2 diabetes mellitus without complications (10) Acute hyponatremia: Status: Acute Category: Medical Code(s): E87.1 - Hypo-osmolality and hyponatremia (11) HFrEF (heart failure with reduced ejection fraction): Status: Acute Category: Medical Code(s): I50.20 - Unspecified systolic (congestive) heart failure (12) HTN (hypertension): Status: Chronic Qualifiers: Hypertension type: essential hypertension Qualified Code(s): I10 - Essential (primary) hypertension Category: Medical Code(s): I10 - Essential (primary) hypertension (13) Elevated brain natriuretic peptide (BNP) level: Status: Acute Category: Medical Code(s): R79.89 - Other specified abnormal findings of blood chemistry (14) Elevated bilirubin: Status: Acute Category: Medical Code(s): R17 - Unspecified jaundice (15) Non morbid obesity: Status: Acute Category: Medical Code(s): E66.9 - Obesity, unspecified (16) BMI 39.0-39.9,adult: Status: Acute Category: Medical Code(s): Z68.39 - Body mass index [BMI] 39.0-39.9, adult (17) Major depressive disorder: Status: Acute Qualifiers: Active/Remission status: remission status unspecified Major depression recurrence: unspecified whether recurrent Qualified Code(s): F32.9 - Major depressive disorder, single episode, unspecified Category: Medical Code(s): F32.9 - Major depressive disorder, single episode, unspecified (18) Hypothyroid: Status: Chronic Qualifiers: Hypothyroidism type: unspecified Qualified Code(s): E03.9 - Hypothyroidism, unspecified Category: Medical Code(s): E03.9 - Hypothyroidism, unspecified Plan Wean Levophed drip. Continue with cefepime. Cardiology consult. Dr. Ortiz entry - Saw patient, agree with above note.
[2023-03-11 09:02] LABS: MANUAL DIFFERENTIAL MANUAL DIFFERENTIAL (MANUAL DIFF)
--- OUTSIDE RECORDS SUMMARY | 2023-03-11 09:07 | XMS_ITS | Continuity of Care Document ---
Author Name Unknown Organization [facility] Address [address] [place] [id number] Phone Care Team Providers Care Revenue Cycle Manager Name Role Phone Louise Schmid MD Unavailable Unavailable Allergies, Adverse Reactions, Alerts Substance Reaction Status Criticality NAPROXEN SODIUM swelling Active No Informati on tetracycline Hazy vision Active No Information Medications Medication Instructions Dosage Effective Dates (start - stop) Status Comments prednisone 5 mg tablet take 4 tabs by mouth x3 days, then 3 tabs x3 days, then 2 tabs x3 days, then 1 tab x 3 days, then off. - Active Plaquenil 200 mg tablet take 1 tablet by oral route 2 times every day 200 MG - Active Invokana 100 mg tablet take 1 tablet by oral route every day before the first meal of the day 100 MG - Active sertraline 100 mg tablet take 1 tablet by oral route 2 times every day 100 MG - Active losartan 50 mg-hydrochlorothiazid e 12.5 mg tablet take 1 tablet by oral route every day 1.00 tablet - Active levothyroxine 150 mcg capsule take 1 capsule by oral route every day 150 MCG - Active celecoxib 200 mg capsule take 1 capsule by oral route every day as needed 200 MG - Active metoprolol tartrate 100 mg tablet take 1 tablet by oral route 2 times every day with meals 100 MG - Active metformin 1,000 mg tablet take 1 tablet by oral route 2 times every day with morning and evening meals 1000 MG - Active rosuvastatin 10 mg tablet take 1 tablet by oral route every day 10 MG - Active montelukast 10 mg tablet take 1 tablet by oral route every day in the evening 10 MG - Active Xarelto 20 mg tablet take 1 tablet by oral route every day with the evening meal 20 MG - Active potassium chloride ER 10 mEq tablet,extended release take 1 tablet by oral route every day with food 10 MEQ - Active Vitamin D3 25 mcg (1,000 unit) capsule take 1 capsule by oral route every day 1 capsule - Active Vitamin B-12 5,000 mcg sublingual tablet once daily - Active Tresiba U-100 Insulin 100 unit/mL subcutaneous solution inject by subcutaneous route as per insulin protocol 0.00 - Active Victoza 2-Atif 0.6 mg/0.1 mL (18 mg/3 mL) subcutaneous pen injector inject (1.8MG) by subcutaneous route every day - Active Procedures Procedure Date CHRON CARE MGMT SRVC 20 MIN CHRON CARE MGMT SRVC 20 MIN CHRON CARE MGMT SRVC 20 MIN CHRON CARE MGMT SRVC 20 MIN New Office Visit Level IV Advance Directives Directive Yes / No Effective Date File Name No Information Encounters Encounter Description Practice Location Reason(s) For Visit Diagnoses Date Provider Providers Copied on Encounter CHRON CARE MGMT SRVC 20 MIN [facility] [address] [place] [address], [id number], tel:[phone] [facility] No Information [address] [place] [address], [place], [id number], . tel:[phone] Referring Provider: Marciano Kincaid, [facility], [place], [address]. tel:[phone] CHRON CARE MGMT SRVC 20 MIN [facility] [address] [place] [address], [id number], tel:[phone] [facility] No Information 2 Binu [address] [place] [address], [id number], . tel:[phone] Referring Provider: Marciano Kincaid, [address] [place] [address] [address], [place], [address]. tel:[phone] CHRON CARE MGMT SRVC 20 MIN [facility] [address], [id number], tel:[phone] [facility] No Information 2 Binu Gil. [address], [address], [place], [place], [id number], [place]. tel:[phone] Referring Provider: Marciano Kincaid, [address] [place] [address] [address], [place], [address]. tel:[phone] CHRON CARE MGMT SRVC 20 MIN [facility] [address] [place] [address], [id number], tel:[phone] [facility] No Information 2 Binu Gil. [facility] [address], [place] [address], [place], [place], [id number], [place]. tel:[phone] Referring Provider: Marciano Kincaid, [address] [place] [address] [address], [place], [address]. tel:[phone] [facility], [address] [place] [address], [id number], [place] tel:[phone] [facility] No Information 1 Binu Gil. [address], [place] [address], [place], [place], [id number], [place]. tel:[phone] New Office Visit Level IV [facility] [address], [id number], [place] tel:[phone] [facility] + RF (chief complaint) Chondrocal cinosis (chief complaint) Body mass index (BMI) 40.0-44.9, adultPseudogout Rheumatoid Factor PositiveHigh Risk Medication UseFatigue Binu Gil. [address], [place], [place], [id number], . tel:[phone] Referring Provider: Marciano Kincaid, [address], [place], [address]. tel:[phone] Family History Family Member Type Diagnosis Age At Onset Sister Problem Diabetes mellitus Mother Problem Arthritis Mother Problem Cardiovascular disease Sister Problem Cardiovascular disease Sister Problem Arthritis Sister Problem fibromyalgia Mother Problem hypertension Payers Payer name Insurance type Covered constitution party ID Marcela leroy(s) Anthem Medicare [id number] Social History Type Description Quantity Date Captured Comments Sex Female Smoking Status No Information Chief Complaint And Reason For Visit No Information Reason For Referral Reason For Referral No Information Plan Of Treatment Date Type Action Status Goal Lifestyle education regardin g diet completed Future Order: Lab Order CBC With Differential/Platelet ([id number]), Ordered on: Ordered Future Order: Lab Order Comp. Me tabolic Panel (14) ([id number]), Ordered on: Ordered Future Order: Lab Order C-Reacti ve Protein, Quant ([id number]), Ordered on: Ordered Future Order: Lab Order Sediment ation Rate-Westergren ([id number]), Ordered on: Ordered Future Order: Lab Order Uric Aci d, Serum ([id number]), Ordered on: Ordered Future Order: Lab Order 25-Hyd marimar Vitamin D (Theratest) (VITADEI), Ordered on: Ordered Future Order: Lab Order Calcium, Ionized, Serum ([id number]), Ordered on: Ordered Future Order: Lab Order PTH, Int act ([id number]), Ordered on: Ordered Future Order: Lab Order TSH+Free T4 ([id number]), Ordered on: Ordered Future Order: Lab Order CCP Anti bodies IgG/IgA ([id number]), Ordered on: Ordered Future Order: Lab Order Rheumato id Factor, IgG/M/A ([id number]), Ordered on: Ordered History Of Present Illness Encounter Date Complaint History Of Prese nt Illness + RF Chondrocalcinosis Functional Status Date Functional Assessmen t No Information Instructions Date Instruction Additional Infor brina - labs every 6 month s- further labs today as below- yearly eye exams We discussed the possible side effects of hydroxychloroquine including headache, nausea, diarrhea, rare retinal pigmentation, very rare neuromuscular toxicity. I recommended eye exams every 6-12 months to monitor for retinal toxicity Related to High Risk Medication Use - continue celebrex- continue plaquenil 200 mg BID- prednisone taper today as above- ultimately, she has severe OA in the knee which will require surgical intervention; continue follow up with orthopedics Related to Pseudogout - will get RF and CC P- will start plaquenil 200 mg BID as this should work for RA and CPPD- XR with chondrocalcinosis as above- no erosions on right foot X ray Related to Rheumatoid Factor Positive Lifestyle education regarding di et Related to Body mass index [BMI] 40.0-44.9, adult Assessments Type Assessment Date No Information Patient Care Teams Name Effective Dates (start - stop) Status Members No Information
[2023-03-11 09:24] LABS: Lymphocytes % 5 % (10-50); Monocytes % 6 % (2-9); Neutrophils % 89 % (42-76); Platelet Estimate Slight Decrease; RBC Morphology Normal; Total Cells Counted 100
[2023-03-11] MEDS: CEFEPIME HCL 2 GM in 0.9 % SODIUM CHLORIDE 100 ML IV ×2 (09:31→20:53)
[2023-03-11] MEDS: POTASSIUM CHLORIDE 10MEQ CAPSULE.ER 10 MEQ PO (09:32)
[2023-03-11 09:42] LABS: Magnesium 1.9 mg/dl (1.6-2.3)
[2023-03-11 10:59] LABS: POC Glucose,Bedside 280 (70-110)
--- NOTE | 2023-03-11 12:50 | PC.NURSE ---
skinner catheter hurting pt, pt unable to sit upright to eat lunch, removed skinner catheter at this time, instructed pt will have to use bedside commode or walk to bathroom when needs to go next time
--- NOTE | 2023-03-11 13:44 | PC.NURSE ---
when pt sits upright unable to get pleth with sat probe, fingers and toes dusky, sat pt up for lunch and had to place 50% venti mask on pt while eating, then pt had large soft bm on bsc, once got pt back to bed and laying down oxygen saturations in 90's again, 50% venti mask still in place and oxygen saturations are 96%, will try and wean back to nasal cannula as appropriate
--- NOTE | 2023-03-11 13:52 | EXP.CARD.CON ---
History of Present Illness History of Present Illness Consult date: 03/11/23 Requesting physician: Timi Payton Consult reason: congestive heart failure Chief complaint: weakness History of present illness: 67-year-old white female established patient of our practice with history of severe nonischemic dilated cardiomyopathy with EF 15%. Patient had recently reestablish care in our office in November. Review of her chart shows history of EF 35 to 40%, she was unaware of the etiology or even that her heart was weak. I repeated testing at that time. Repeat echo showed EF 15% with severe dilated left ventricle. She wore a heart monitor which showed permanent atrial fibrillation with episodes of nonsustained V. tach. She was placed on a LifeVest order left heart cath and cardiac MRI. Her left heart cath showed normal coronaries, the cardiac MRI is pending, she is not wearing her LifeVest. She was on standard guideline directed medical therapy for heart failure and in her usual state of health which is ambulating with a walker. Over the last several days developed severe nausea with vomiting with any p.o. intake. After several days she developed profound weakness and came to the emergency room. On arrival white blood cell count 28,000, sodium 124, glucose 450, lactic acid 4.7, creatinine 2.0, proBNP 9800, BP in the 60s. She was placed on Levophed and started on broad-spectrum antibiotics. Today states she is feeling significantly better. [facility] Disclaimer: The information contained in this section may have been updated after the patient was seen, as this information can be updated by other users. Medical History Allergic rhinitis Asthma-COPD overlap syndrome Atrial fibrillation BMI 39.0-39.9,adult CHF (congestive heart failure) Chronic low back pain COPD (chronic obstructive pulmonary disease) Esophageal stricture HFrEF (heart failure with reduced ejection fraction) HTN (hypertension) Hyperlipidemia Hypothyroid Irritable bowel syndrome with diarrhea Major depressive disorder Non morbid obesity Osteoarthritis of both knees Surgical History History of cholecystectomy History of right oophorectomy History of tubal ligation S/P dilatation of esophageal stricture Family History Family/Other A-fib Emphysema lung Breast cancer Social History Smoking Status: Former smoker years smoked: 15 how long ago did patient quit smokin quit status: quit date established second hand exposure: No alcohol intake: former counseling given: No substance use type: denies use counseling given: No current occupational status: disabled Travel in the last 8 weeks: Inside the [place] adopted: No caregiver/support person: No foster care: No household members: family and none housing: house lives independently: Yes marital status: number of children: 3 number of grandchildren: 11 education level: high school current occupational exposures/hazards: No caffeine: Yes physical activity: none working smoke detector in home: Yes fire extinguisher in home: No carbon monox detector in home: No firearms in home: No do you feel safe at home: Yes victim of physical abuse: No victim of emotional abuse: No victim of sexual abuse: No would you like helpful sources: No Review of Systems Constitutional Constitutional: Reports fatigue, Reports lethargy and Reports weakness Eyes Eyes: Denies loss of vision ENT Ears, Nose, Mouth, and Throat: Denies dizziness *Cardiovascular Cardiovascular: Denies chest pain and Denies dyspnea *Respiratory Respiratory: Denies cough and Denies dyspnea *Gastrointestinal Gastrointestinal: Denies change in stool character, Reports nausea and Denies vomiting Comments: vomiting *Musculoskeletal Musculoskeletal: Denies muscle weakness Integumentary/Breasts Skin/Breast: Denies changing lesions *Neurologic Neurologic: Denies dizziness, Denies loss of vision and Reports weakness Endocrine Endocrine: Reports fatigue Exam Data for Last 24 hours Vital signs and Labs for Last 24 Hours: Temp Pulse Resp BP Pulse Ox O2 Del Method O2 Flow Rate 99.3 F 87 23 130/61 91 L Nasal Cannula 2 03/11/23 12:00 03/11/23 11:30 03/11/23 11:30 03/11/23 11:30 03/11/23 11:30 03/11/23 11:30 03/11/23 11:30 Laboratory Results - last 24 hr 03/10/23 16:17: POC Glucose 276 H 03/10/23 20:18: POC Glucose 343 H* 03/11/23 05:57: POC Glucose 184 H 03/11/23 06:45: Sodium 134 L, Potassium 4.5 D, Chloride 101, Carbon Dioxide 20 L, Anion Gap 17.5 H, BUN 41 H, Creatinine 2.00 H, Estimated Creat Clear 42, Estimated GFR 25 L, Est GFR ( Amer) 30 L, Glucose 210 H D, Calcium 8.0 L, Magnesium 1.9, Total Bilirubin 1.2, AST 39 H, ALT 24, Alkaline Phosphatase 116, Total Protein 7.4, Albumin 3.2 L, Globulin 4.2 H, Albumin/Globulin Ratio 0.8 L 03/11/23 08:45: WBC 23.1 H*, RBC 3.96 L, Hgb 13.1, Hct 39.1, MCV 98.9, MCH 33.0 H, MCHC 33.4, RDW 15.3, Plt Count 111 L D, MPV 9.3, Neut % (Auto) 91.0 H, Lymph % (Auto) 4.5 L, [place] % (Auto) 3.7, Eos % (Auto) 0.7, Baso % (Auto) 0.2, Neut # (Auto) 21.0 H, Lymph # (Auto) 1.0, [place] # (Auto) 0.9, Eos # (Auto) 0.2, Baso # (Auto) 0.1, Total Counted 100, Neutrophils % (Manual) 89 H, Lymphocytes % (Manual) 5 L, Monocytes % (Manual) 6, Platelet Estimate Slight decrease, RBC Morphology Normal 03/11/23 10:50: POC Glucose 280 H I & O for Last 24 hours: Intake & Output 03/08/23 03/09/23 03/10/23 03/11/23 23:59 23:59 23:59 23:59 Intake Total 4641.688 / 4641.688 2426.563 / 2426.563 Output Total 1530 / 2930 2225 / 2225 Balance 3111.688 / 1711.688 201.563 / 201.563 Weight 210 lb 210 lb 9.616 oz 210 lb 9.6 oz Constitutional Constitutional: no acute distress, obese and cooperative *Routine HEENT Exam Eye: Present PERRL *Routine Respiratory Exam Respiratory: Present CTA bilaterally; Absent accessory muscle use, wheezes or crackles *Routine Cardiovascular Exam Cardiovascular: Present RRR, Normal S1 and Normal S2; Absent murmur, gallop or rubs *Routine Abdominal Exam Abdominal: Present soft; Absent tenderness *Routine Extremities Exam Extremities: Present pulses intact; Absent cyanosis or edema *Routine Skin Exam Skin: Present intact; Absent erythema or wounds *Routine Neurological Exam Neurological: Present alert and oriented X3 Routine Psychiatric Exam Psychiatric: Present cooperative Meds Home Medications and Allergies Home Medications Medication Instructions Recorded Confirmed Type montelukast 10 mg tablet 10 mg PO HS Asthma 12/27/17 03/09/23 History rivaroxaban 20 mg tablet 20 mg PO QPMWITHMEAL afib 12/27/17 03/10/23 History cholecalciferol (vitamin D3) 50 2,000 unit PO DAILY Supplement 12/04/18 03/09/23 History mcg (2,000 unit) capsule fluticasone 250 mcg-salmeterol 50 1 inh inhalation BIDRT Copd 12/04/18 03/10/23 History mcg/dose blistr powdr for inhalation insulin degludec 200 unit/mL (3 33 unit SQ DAILY Diabetes 04/28/20 03/09/23 History mL) subcutaneous pen multivitamin 1 tab PO DAILY Supplement 04/28/20 03/10/23 History cyanocobalamin (vitamin B-12) 1,000 mcg PO DAILY Supplement 05/10/20 03/09/23 History 1,000 mcg tablet liraglutide 0.6 mg/0.1 mL (18 mg/3 1.8 mg SQ DAILY Diabetes 06/03/20 03/10/23 History mL) subcutaneous pen injector rosuvastatin 10 mg tablet 10 mg PO HS Cholesterol 01/20/23 03/09/23 History desvenlafaxine succinate 100 mg 100 mg PO DAILY URINARY SYMPTOMS 03/10/23 03/09/23 History tablet,extended release 24 hr (Pristiq) empagliflozin 10 mg tablet 10 mg PO DAILY Heart Failure 03/10/23 03/09/23 History (Jardiance) furosemide 20 mg tablet 20 mg PO DAILY Fluid 03/10/23 03/09/23 History levothyroxine 175 mcg tablet 175 mcg PO DAILYDM THYROID 03/10/23 03/10/23 History metoprolol tartrate 100 mg tablet 100 mg PO BID High Blood Pressure 03/10/23 03/10/23 History sacubitril 24 mg-valsartan 26 mg 1 tab PO BID High Blood Pressure 03/10/23 03/09/23 History tablet (Entresto) spironolactone 50 mg tablet 50 mg PO DAILY Fluid 03/10/23 03/09/23 History (Aldactone) New Prescriptions to Start Prescriptions: Allergies Allergy/AdvReac Type Severity Reaction Status Date / Time naproxen [From ALEVE] Allergy Intermediate S-SWELLS-OR Verified 01/02/23 14:05 AL/THROAT oxytetracycline Allergy Intermediate Verified 01/02/23 14:05 [From TERRAMYCIN] tetracycline [TETRACYCLINE] Allergy Intermediate NA-SEDATION Verified 01/02/23 14:05 Assessment and Plan *Assessment and plan (1) Hypovolemic shock: Status: Acute Category: Medical Code(s): R57.1 - Hypovolemic shock (2) LORE (acute kidney injury): Status: Acute Category: Medical Code(s): N17.9 - Acute kidney failure, unspecified (3) Atrial fibrillation with rapid ventricular response: Status: Acute Category: Medical Code(s): I48.91 - Unspecified atrial fibrillation (4) HFrEF (heart failure with reduced ejection fraction): Status: Acute Category: Medical Code(s): I50.20 - Unspecified systolic (congestive) heart failure (5) Vomiting: Status: Acute Qualifiers: Vomiting type: unspecified Nausea presence: with nausea Qualified Code(s): R11.2 - Nausea with vomiting, unspecified Category: Medical Code(s): R11.10 - Vomiting, unspecified Plan Hypovolemic Shock - pt was vomiting for 3 days then developed BP in 60s with EF 15% and A-fib RVR. 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 - ECHO 12/10: EF 15% Severe LV dilation - LHC 01/10: Normal Cors - Pt has been given LifeVest but not wearing - GDMT on hold due to hypotension - QRS is 143 and she has IVCD on EKG, she likely needs Bi-V PPM/ICD, will readdress in office after recovery from acute illness Permanent A-fib - continue renally adjsuted Xarelto - hold AVB due to hypotension Acute Gastroenteritis with leukocytosis, hyperglycemia and hyponatremia - Severe N/V x3 days prior to arrival - stable now - plans per primary service Acute Kidney Injury - Cr Baseline 1.1, now 2.0 on arrival CV Summary 03/11: Pt has very serious cardiovascular disease at baseline. Her acute GI illness has caused severe hypovolemia which when combined with her severe LV dysfunction and arrhythmia caused multiorgan failure. She needs gentle fluid resuscitation and resumption of meds, likely over several days. Defer GI w/u to PCP. We will continue to follow with you.
[2023-03-11] MEDS: ACETAMINOPHEN 500MG TAB 1000 MG PO ×2 (14:51→20:20)
[2023-03-11] MEDS: 0.9 % SODIUM CHLORIDE 1000ML 1,000 ML 100 ML IV (16:00)
[2023-03-11 17:07] LABS: POC Glucose,Bedside 268 (70-110)
[2023-03-11] MEDS: RIVAROXABAN 15MG TABLET 15 MG PO (17:50)
[2023-03-11 20:53] LABS: POC Glucose,Bedside 188 (70-110)
[2023-03-12] VITALS (13 sets, daily range): BP systolic 84–152; BP diastolic 45–82; PULSE 66–150; RESP 15–38; TEMP 36.6–37.5; O2SAT 91–97; BMI 43.9
[2023-03-12] MEDS: dilTIAZem 30MG TABLET 30 MG PO ×4 (02:02→21:38)
[2023-03-12] MEDS: 0.9 % SODIUM CHLORIDE 1000ML 1,000 ML 100 ML IV ×2 (04:10→15:21)
--- NOTE | 2023-03-12 04:21 | PC.NURSE ---
At beginning of shift pt complaining of feeling palpitations and was shivering. HR in 130-140s. Scheduled PO dilt given. Pt felt better after. Able to use bedside commode w/ standby assist. Multiple BMs overnight. Slept majority of the shift. Only complained of headache at beginning of shift, given PRN Tylenol which got rid of her headache. Pt's HR currently in 110-120s.
[2023-03-12 05:55] LABS: POC Glucose,Bedside 132 (70-110)
--- NOTE | 2023-03-12 05:57 | PC.NURSE ---
When pt sits on side of bed she becomes increasingly tachycardic in 130-150s.
[2023-03-12] MEDS: LEVOTHYROXINE 175MCG (0.175MG) TAB 175 MCG PO (06:02)
--- NOTE | 2023-03-12 07:47 | PC.NURSE ---
PICC TEAM AT BEDSIDE PLACING PICC LINE
[2023-03-12] MEDS: ACETAMINOPHEN 500MG TAB 1000 MG PO (08:34)
[2023-03-12] MEDS: CEFEPIME HCL 2 GM in 0.9 % SODIUM CHLORIDE 100 ML IV ×2 (08:36→21:38)
[2023-03-12] MEDS: POTASSIUM CHLORIDE 10MEQ CAPSULE.ER 10 MEQ PO (08:36)
--- NOTE | 2023-03-12 08:55 | P.PN_ITS ---
Subjective *Date: 03/12/23 *Time: 09:17 Interval history: Patient just had a PICC line placed. Left arm is a little sore. She is short of breath which she says she always has. She has been placed on partial nonrebreather to 50%. She was able to eat a little bit yesterday. Bowels have moved. She has had no further vomiting but a little nausea. She has been up to the bedside commode. She is off her Levophed drip and with stable blood pressure. Cardiology saw her yesterday with the following documentation.: Plan Hypovolemic Shock - pt was vomiting for 3 days then developed BP in 60s with EF 15% and A-fib RVR. 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 - ECHO 12/10: EF 15% Severe LV dilation - C 01/10: Normal Cors - Pt has been given LifeVest but not wearing - GDMT on hold due to hypotension - QRS is 143 and she has IVCD on EKG, she likely needs Bi-V PPM/ICD, will readdress in office after recovery from acute illness Permanent A-fib - continue renally adjsuted Xarelto - hold AVB due to hypotension Acute Gastroenteritis with leukocytosis, hyperglycemia and hyponatremia - Severe N/V x3 days prior to arrival - stable now - plans per primary service Acute Kidney Injury - Cr Baseline 1.1, now 2.0 on arrival CV Summary 03/11: Pt has very serious cardiovascular disease at baseline. Her acute GI illness has caused severe hypovolemia which when combined with her severe LV dysfunction and arrhythmia caused multiorgan failure. She needs gentle fluid resuscitation and resumption of meds, likely over several days. Defer GI w/u to PCP. We will continue to follow with you. Medical Exam Vital signs and Labs for Last 24 Hours: Vital Signs Temp Pulse Pulse Pulse Resp BP Pulse Ox 03/12/23 08:00 98.4 F 03/12/23 06:32 03/12/23 06:00 148 H 15 145/58 H 03/12/23 04:00 140 H 03/12/23 04:43 03/12/23 04:00 98.7 F 03/12/23 04:00 125 H 38 H 136/53 L 03/12/23 03:32 91 L 03/12/23 02:39 03/12/23 01:53 117 H 23 104/56 L 93 L 03/12/23 00:00 130 H 03/12/23 00:36 03/11/23 23:52 99.0 F 116 H 20 112/66 100 03/11/23 23:00 03/11/23 21:59 110 H 30 H 90/53 L 03/11/23 20:00 110 H 03/11/23 20:51 03/11/23 20:00 98.5 F 122 H 29 H 154/44 H 90 L 03/11/23 19:32 113 H 24 91 L 03/11/23 18:44 03/11/23 17:00 03/11/23 18:00 115 H 18 93/58 L 91 L 03/11/23 16:00 110 H 03/11/23 17:00 83 83/49 L 03/11/23 17:15 115 H 129/66 03/11/23 16:02 105 H 26 H 94/28 L 91 L 03/11/23 16:30 94 H 96/38 L 03/11/23 15:35 142 H 99/57 L 03/11/23 16:00 99.0 F 03/11/23 12:00 110 H 03/11/23 14:30 115 H 118/61 03/11/23 14:15 119 H 83/54 L 03/11/23 14:45 118 H 31 H 118/51 L 94 L 03/11/23 14:55 03/11/23 13:45 131 H 108/71 L 03/11/23 12:16 94 H 161/66 H 03/11/23 12:15 103 H 75/38 L 03/11/23 14:00 106 H 26 H 126/83 95 03/11/23 13:30 125 H 107/34 L 03/11/23 12:00 103 H 24 147/56 H 90 L 03/11/23 13:00 03/11/23 11:00 03/11/23 09:00 03/11/23 12:00 99.3 F 03/11/23 11:30 87 130/61 91 L 01/22/24 11:15 105 H 153/62 H 90 L 03/11/23 10:15 96 H 127/47 L 03/11/23 09:45 118 H 122/54 L 90 L 03/11/23 09:15 128 H 91/48 L 92 L 03/11/23 11:30 87 23 130/61 91 L 03/11/23 10:30 101 H 21 89/47 L 03/11/23 09:30 105 H 18 103/41 L 90 L 03/11/23 10:45 96 H 19 113/54 L 90 L 03/11/23 10:00 110 H 20 91/59 L 90 L 03/11/23 09:00 130 H 22 163/88 H 89 L O2 Del Method O2 Flow Rate FiO2 03/12/23 08:00 03/12/23 06:32 Venturi Mask 03/12/23 06:00 Venturi Mask 03/12/23 04:00 03/12/23 04:43 Venturi Mask 03/12/23 04:00 03/12/23 04:00 Venturi Mask 03/12/23 03:32 Venturi Mask 03/12/23 02:39 Venturi Mask 03/12/23 01:53 Venturi Mask 03/12/23 00:00 03/12/23 00:36 Venturi Mask 03/11/23 23:52 Venturi Mask 03/11/23 23:00 Venturi Mask 03/11/23 21:59 Venturi Mask 03/11/23 20:00 03/11/23 20:51 Venturi Mask 15 03/11/23 20:00 Nasal Cannula 3 03/11/23 19:32 Nasal Cannula 3 03/11/23 18:44 Venturi Mask 15 03/11/23 17:00 Venturi Mask 15 03/11/23 18:00 Venturi Mask 15 03/11/23 16:00 03/11/23 17:00 03/11/23 17:15 03/11/23 16:02 Venturi Mask 15 03/11/23 16:30 03/11/23 15:35 03/11/23 16:00 03/11/23 12:00 03/11/23 14:30 03/11/23 14:15 03/11/23 14:45 Venturi Mask 15 50 03/11/23 14:55 Venturi Mask 15 03/11/23 13:45 03/11/23 12:16 03/11/23 12:15 03/11/23 14:00 Venturi Mask 15 50 03/11/23 13:30 03/11/23 12:00 Nasal Cannula 3 03/11/23 13:00 Venturi Mask 15 03/11/23 11:00 Nasal Cannula 3 03/11/23 09:00 Nasal Cannula 3 03/11/23 12:00 03/11/23 11:30 Nasal Cannula 2 03/11/23 11:15 Nasal Cannula 2 03/11/23 10:15 03/11/23 09:45 Nasal Cannula 2 03/11/23 09:15 Nasal Cannula 2 03/11/23 11:30 Nasal Cannula 2 03/11/23 10:30 Nasal Cannula 2 03/11/23 09:30 Nasal Cannula 2 03/11/23 10:45 Nasal Cannula 2 03/11/23 10:00 Nasal Cannula 2 03/11/23 09:00 Nasal Cannula 2 Intake and Output 03/11/23 03/12/23 03/12/23 19:59 03:59 11:59 Intake Total 1548.008 / 1548.008 700 / 2248.008 1378 / 3626.008 Output Total 0 / 0 300 / 300 0 / 300 Balance 1548.008 / 1548.008 400 / 1929.892 4161 / 3326.008 Intake: Intake, Oral Amount 1520 / 1520 780 / 2300 Intake, Total IV Amount 28.008 / 28.008 700 / 728.008 598 / 1326.008 0.9 % Sodium Chloride 1000ML 1, 600 / 600 000 ml @ 200 mls/hr IV .Q5H FARHAN Rx#:[id number] Cefepime HCl 2 gm In 0.9 % 100 / 100 598 / 698 Sodium Chloride 100 ml @ 200 mls/hr IV Q12H FARHAN Rx#:[id number] Output: Output, Urine Amount 0 / 0 300 / 300 0 / 300 Other: Number of Unmeasured Voids 1 2 1 Number of Bowel Movements 1 3 1 Weight 210 lb 9.369 oz 232 lb 9 oz Patient Weight 03/12/23 11:59 Weight 232 lb 9 oz Laboratory Results - last 24 hr 03/11/23 06:45: Magnesium 1.9 01/22/24 08:45: WBC 23.1 H*, RBC 3.96 L, Hgb 13.1, Hct 39.1, MCV 98.9, MCH 33.0 H, MCHC 33.4, RDW 15.3, Plt Count 111 L D, MPV 9.3, Neut % (Auto) 91.0 H, Lymph % (Auto) 4.5 L, [place] % (Auto) 3.7, Eos % (Auto) 0.7, Baso % (Auto) 0.2, Neut # (Auto) 21.0 H, Lymph # (Auto) 1.0, [place] # (Auto) 0.9, Eos # (Auto) 0.2, Baso # (Auto) 0.1, Total Counted 100, Neutrophils % (Manual) 89 H, Lymphocytes % (Manual) 5 L, Monocytes % (Manual) 6, Platelet Estimate Slight decrease, RBC Mor phology Normal 03/11/23 10:50: POC Glucose 280 H 03/11/23 16:48: POC Glucose 268 H 03/11/23 20:15: POC Glucose 188 H 03/12/23 05:05: POC Glucose 132 H I & O for Labs for Last 24 Hours: Intake & Output 03/09/23 03/10/23 03/11/23 03/12/23 11:59 11:59 11:59 11:59 Intake Total 2079.437 / 2079.437 3882.252 / 3882.252 3626.008 / 3626.008 Output Total 3725 / 3725 300 / 300 Balance 2049.437 / 2049.437 157.252 / 353.274 0528.008 / 3326.008 Weight 210 lb 9.616 oz 210 lb 9.6 oz 232 lb 9 oz Microbiology Reports for the Last 24 Hours: Microbiology 03/09/23 23:35 Blood Blood Culture - Preliminary 03/09/23 23:41 Blood Blood Culture - Preliminary Constitutional: Present mild distress Comment:: Dyspneic Respiratory: Present accessory muscle use, CTA bilaterally (Anteriorly and posteriorly) and able to speak in complete sentences Comment:: Dyspneic with with speaking Cardiac: Present Irregularly Regular and Tachycardia Comment:: Appears atrial fibrillation with rapid ventricular response. GI: Present soft and normal bowel sounds; Absent distention or tenderness Extremities: Absent edema (Bilateral lower extremity) Neuro: Present alert and oriented x 3 Comment:: Conversant Assessment and Plan *Assessment and plan (1) Hypovolemic shock: Status: Acute Category: Medical Code(s): R57.1 - Hypovolemic shock (2) LORE (acute kidney injury): Status: Acute Category: Medical Code(s): N17.9 - Acute kidney failure, unspecified (3) Atrial fibrillation with rapid ventricular response: Status: Acute Category: Medical Code(s): I48.91 - Unspecified atrial fibrillation (4) HFrEF (heart failure with reduced ejection fraction): Status: Acute Category: Medical Code(s): I50.20 - Unspecified systolic (congestive) heart failure (5) Vomiting: Status: Acute Qualifiers: Nausea presence: with nausea Vomiting type: unspecified Qualified Code(s): R11.2 - Nausea with vomiting, unspecified Category: Medical Code(s): R11.10 - Vomiting, unspecified (6) Non morbid obesity: Status: Acute Category: Medical Code(s): E66.9 - Obesity, unspecified (7) Elevated bilirubin: Status: Acute Category: Medical Code(s): R17 - Unspecified jaundice (8) Elevated brain natriuretic peptide (BNP) level: Status: Acute Category: Medical Code(s): R79.89 - Other specified abnormal findings of blood chemistry (9) Hyponatremia: Status: Acute Category: Medical Code(s): E87.1 - Hypo-osmolality and hyponatremia (10) Sepsis: Status: Acute Qualifiers: Acute renal failure type: unspecified Sepsis acute organ dysfunction status: with acute organ dysfunction Sepsis type: sepsis due to unspecified organism Severe sepsis acute organ dysfunction type: acute renal failure Severe sepsis shock status: without septic shock Qualified Code(s): A41.9 - Se psis, unspecified organism; R65.20 - Severe sepsis without septic shock; N17.9 - Acute kidney failure, unspecified Category: Medical Code(s): A41.9 - Sepsis, unspecified organism (11) Acute dehydration: Status: Acute Category: Medical Code(s): E86.0 - Dehydration (12) Acute hyperglycemia: Status: Acute Category: Medical Code(s): R73.9 - Hyperglycemia, unspecified (13) Elevated lactic acid level: Status: Acute Category: Medical Code(s): R79.89 - Other specified abnormal findings of blood chemistry (14) Acute hyponatremia: Status: Acute Category: Medical Code(s): E87.1 - Hypo-osmolality and hyponatremia (15) Major depressive disorder: Status: Acute Qualifiers: Active/Remission status: remission status unspecified Major depression recurrence: unspecified whether recurrent Qualified Code(s): F32.9 - Major depressive disorder, single episode, unspecified Category: Medical Code(s): F32.9 - Major depressive disorder, single episode, unspecified Plan Cardiology to follow-up. Continue with current antibiotics. PICC line has been placed. Will stop every 6 hours IV fluids. Will discuss IV rate with Dr. Ortiz. Dr. Ortiz entry - Saw patient, agree with above note.
[2023-03-12] MEDS: INSULIN GLARGINE 100 UNITS/ML 3ML FLEXPEN 10 UNIT SQ (10:07)
--- NOTE | 2023-03-12 10:08 | PC.NURSE ---
CARROL FROM PICC TEAM CALLED AND STATED PICC OKAY TO BE USED, 4 FR PICC LINE IN LEFT BASILIC VEIN @41 CM, 0 EXPOSED, DRESSING DATED 03/12/23
[2023-03-12 11:40] LABS: POC Glucose,Bedside 245 (70-110)
[2023-03-12] MEDS: METOPROLOL TARTRATE 50MG TABLET 50 MG PO ×2 (12:00→21:38)
[2023-03-12] MEDS: humaLOG 100 UNITS/ML 3ML VIAL (SSI) SQ ×3 (12:00→21:38)
--- NOTE | 2023-03-12 12:01 | P.PN_ITS ---
Subjective Subjective Date: 03/12/23 Time: 09:30 Interval history: Improving overnight. No further vomiting. She is off pressors. Blood pressure 140s, heart rate 140?150. She denies palpitations and shortness of breath. Exam Data for Last 24 hours Vital signs and Labs for Last 24 Hours: Temp Pulse Resp BP Pulse Ox O2 Del Method O2 Flow Rate 99.5 F 147 H 29 H 103/67 L 96 Room Air 15 03/12/23 09:30 03/12/23 10:00 03/12/23 10:00 03/12/23 10:00 03/12/23 10:00 03/12/23 11:00 03/12/23 09:00 FiO2 50 03/12/23 08:15 Laboratory Results - last 24 hr 03/11/23 16:48: POC Glucose 268 H 03/11/23 20:15: POC Glucose 188 H 03/12/23 05:05: POC Glucose 132 H 03/12/23 10:59: POC Glucose 245 H I & O for Last 24 hours: Intake & Output 03/09/23 03/10/23 03/11/23 03/12/23 23:59 23:59 23:59 23:59 Intake Total 4641.688 / 4641.688 3568.009 / 3568.009 1378 / 1378 Output Total 1530 / 2930 2525 / 2525 0 / 0 Balance 3111.688 / 0863.504 5744.009 / 2111.183 9353 / 1378 Weight 210 lb 210 lb 9.616 oz 210 lb 9.369 oz 232 lb 9 oz Microbiology Reports for the Last 24 Hours: Microbiology 03/09/23 23:35 Blood Blood Culture - Preliminary 03/09/23 23:41 Blood Blood Culture - Preliminary Constitutional Constitutional: no acute distress and cooperative *Routine HEENT Exam Eye: Present PERRL *Routine Respiratory Exam Respiratory: Present CTA bilaterally; Absent accessory muscle use, wheezes or crackles *Routine Cardiovascular Exam Cardiovascular: Present RRR, Normal S1 and Normal S2; Absent murmur, gallop or rubs *Routine Abdominal Exam Abdominal: Present soft; Absent tenderness *Routine Extremities Exam Extremities: Present pulses intact; Absent cyanosis or edema *Routine Skin Exam Skin: Present intact; Absent erythema or wounds *Routine Neurological Exam Neurological: Present alert and oriented X3 Routine Psychiatric Exam Psychiatric: Present cooperative Progress Note: A&P Assessment and plan (1) Hypovolemic shock: Status: Acute (2) LORE (acute kidney injury): Status: Acute (3) Atrial fibrillation with rapid ventricular response: Status: Acute (4) HFrEF (heart failure with reduced ejection fraction): Status: Acute (5) Vomiting: Status: Acute (6) Non morbid obesity: Status: Acute (7) Elevated bilirubin: Status: Acute (8) Elevated brain natriuretic peptide (BNP) level: Status: Acute (9) Hyponatremia: Status: Acute (10) Sepsis: Status: Acute (11) Acute dehydration: Status: Acute (12) Acute hyperglycemia: Status: Acute (13) Elevated lactic acid level: Status: Acute (14) Acute hyponatremia: Status: Acute (15) Major depressive disorder: Status: Acute Assessment and Plan Assessment and Plan for All Diagnoses:: Hypovolemic Shock - pt was vomiting for 3 days then developed BP in 60s with EF 15% and A-fib RVR. 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 Resume Metoprolol at 50mg BID Acute Gastroenteritis with leukocytosis, hyperglycemia and hyponatremia - Severe N/V x3 days prior to arrival - stable now - she had PICC line placed for IV antibiotics - plans per primary service Acute Kidney Injury - Cr Baseline 1.1, now 2.0 on arrival 03/12: Stable/improving daily. Will slowly resume home HF/A-fib meds.
[2023-03-12] MEDS: RIVAROXABAN 15MG TABLET 15 MG PO (17:23)
--- NOTE | 2023-03-12 17:47 | XR_ITS ---
FINAL REPORT CLINICAL HISTORY: Confirm PICC line placement COMPARISON: 03/09/2023 FINDINGS: SINGLE-VIEW CHEST The heart is in the upper limits of normal in size. Left PICC line tip terminates in the SVC. The mediastinum is normal. The lungs are underinflated. New small right effusion is identified. There is no pneumothorax. IMPRESSION: Left PICC line in the SVC. New small right effusion. Reviewed, Interpreted and Dictated by Adonis Sen MD Transcribed by Kristina Delarosa Authenticated and [facility]
--- NOTE | 2023-03-12 18:26 | PC.NURSE ---
Patient alert and oriented. Denies pain. Up to BR with one for void. O2 via venti mask at 35% prn. Difficult to get SpO2 readings. IV fluids infusing per orders.
[2023-03-12 20:50] LABS: POC Glucose,Bedside 200 (70-110)
[2023-03-13] VITALS (9 sets, daily range): BP systolic 79–131; BP diastolic 53–72; PULSE 61–116; RESP 17–18; TEMP 36.6–36.8; O2SAT 93–100; BMI 43.9
[2023-03-13] MEDS: 0.9 % SODIUM CHLORIDE 1000ML 1,000 ML 100 ML IV (01:00)
[2023-03-13] MEDS: ACETAMINOPHEN 500MG TAB 1000 MG PO ×3 (01:42→20:43)
[2023-03-13] MEDS: dilTIAZem 30MG TABLET 30 MG PO ×4 (02:54→20:43)
[2023-03-13] MEDS: LEVOTHYROXINE 175MCG (0.175MG) TAB 175 MCG PO (06:15)
[2023-03-13] MEDS: humaLOG 100 UNITS/ML 3ML VIAL (SSI) SQ ×4 (06:18→20:44)
[2023-03-13 06:29] LABS: POC Glucose,Bedside 176 (70-110)
[2023-03-13 07:43] LABS: Blood Urea Nitrogen 39 mg/dl (7-17); Calcium 7.6 mg/dl (8.4-10.2); Carbon Dioxide 15 mmol/L (22.0-30.0); Chloride 104 mmol/L (98-107); Creatinine Clearance Estimated 23 mL/min (50-200); Estimated Glomerular Filt Rate 28 ml/min (>60); GFR (African American) 34 ML/MIN (>60); Glucose 182 mg/dl (74-100); Sodium 129 mmol/L (136-145)
[2023-03-13 07:57] LABS: Basophils % 0.1 % (0.1-2.0); Eosinophils # 0.2 K/mm3 (0.0-0.4); Eosinophils % 1.9 % (0.1-12.0); Hematocrit 36.9 % (37.0-47.0); Hemoglobin 12.2 g/dL (12.2-16.2); Lymphocytes # 1.2 K/mm3 (0.7-4.5); Mean Corpuscular HGB Conc 32.9 g/dL (31.8-35.4); Mean Corpuscular Hemoglobin 32.5 pg (27.0-31.2); Mean Corpuscular Volume 98.7 fl (81-99); Mean Platelet Volume 9.3 fl (7.4-10.4); Monocytes # 0.7 K/mm3 (0.1-1.0); Monocytes % 7.2 % (1.7-9.3); Neutrophils % 78.7 % (37.0-80.0); Platelet Count 105 K/mm3 (142-424); Red Blood Count 3.74 M/mm3 (4.20-5.40); Red Cell Distribution Width 15.9 % (11.5-17.5); White Blood Count 10.1 K/mm3 (4.8-10.8)
--- NOTE | 2023-03-13 08:28 | P.PN_ITS ---
Subjective *Date: 03/13/23 *Time: 09:09 Interval history: Patient was having stomach cramps earlier this morning, but these have resolved. She continues with some diarrhea. She has shortness of breath with any movement. She was able to eat a full breakfast this morning Medical Exam Vital signs and Labs for Last 24 Hours: Vital Signs Temp Pulse Pulse Resp BP Pulse Ox O2 Del Method 03/13/23 07:52 97.8 F 69 18 93/56 L 95 Room Air 03/13/23 04:00 73 03/13/23 04:00 98.1 F 116 H 17 120/64 94 L 03/13/23 00:00 89 03/13/23 07:00 Room Air 03/13/23 05:00 Room Air 03/13/23 03:00 Room Air 03/13/23 01:00 Room Air 03/13/23 00:00 98 F 87 18 131/65 93 L 03/12/23 23:00 Room Air 03/12/23 20:00 110 H 03/12/23 21:00 Room Air 03/12/23 20:00 Room Air 03/12/23 20:00 98 F 119 H 20 121/71 94 L Room Air 03/12/23 16:00 90 03/12/23 18:34 Venturi Mask 03/12/23 16:50 Room Air 03/12/23 16:00 98.1 F 66 22 84/45 L 96 Room Air 03/12/23 15:57 Venturi Mask 03/12/23 15:00 Venturi Mask 03/12/23 14:00 102 H 22 98/72 L 96 Venturi Mask 03/12/23 12:00 100 H 03/12/23 12:46 Room Air 03/12/23 12:00 98 H 25 H 152/54 H 93 L Room Air 03/12/23 11:00 Room Air 03/12/23 10:00 147 H 29 H 103/67 L 96 Room Air 03/12/23 09:00 Venturi Mask 03/12/23 09:30 99.5 F O2 Flow Rate FiO2 03/13/23 07:52 03/13/23 04:00 03/13/23 04:00 03/13/23 00:00 03/13/23 07:00 03/13/23 05:00 03/13/23 03:00 03/13/23 01:00 03/13/23 00:00 03/12/23 23:00 03/12/23 20:00 03/12/23 21:00 03/12/23 20:00 03/12/23 20:00 03/12/23 16:00 03/12/23 18:34 03/12/23 16:50 03/12/23 16:00 03/12/23 15:57 03/12/23 15:00 15 03/12/23 14:00 15 50 03/12/23 12:00 03/12/23 12:46 03/12/23 12:00 03/12/23 11:00 03/12/23 10:00 03/12/23 09:00 15 03/12/23 09:30 Intake and Output 03/12/23 03/13/23 03/13/23 19:59 03:59 11:59 Intake Total 1280 / 1620 100 / 1620 240 / 1620 Output Total 150 / 400 250 / 400 Balance 1130 / 1220 -150 / 1220 240 / 1220 Intake: Intake, Oral Amount 1280 / 1620 100 / 1620 240 / 1620 Output: Output, Urine Amount 150 / 400 250 / 400 Other: Number of Voids 1 Number of Unmeasured Voids 1 1 Number of Bowel Movements 1 1 Weight 232 lb 9.015 oz Patient Weight 03/13/23 11:59 Weight 232 lb 9.015 oz Laboratory Results - last 24 hr 03/12/23 10:59: POC Glucose 245 H 03/12/23 20:29: POC Glucose 200 H 03/13/23 06:16: POC Glucose 176 H 03/13/23 06:33: WBC 10.1 D, RBC 3.74 L, Hgb 12.2, Hct 36.9 L, MCV 98.7, MCH 32.5 H, MCHC 32.9, RDW 15.9, Plt Count 105 L, MPV 9.3, Neut % (Auto) 78.7, Lymph % (Auto) 12.0, [place] % (Auto) 7.2, Eos % (Auto) 1.9, Baso % (Auto) 0.1, Neut # (Auto) 8.0 H, Lymph # (Auto) 1.2, [place] # (Auto) 0.7, Eos # (Auto) 0.2, Baso # (Auto) 0.0, Sodium 129 L, Potassium 4.0, Chloride 104, Carbon Dioxide 15 L, Anion Gap 14.0, BUN 39 H, Creatinine 1.80 H, Estimated Creat Clear 23, Estimated GFR 28 L, Est GFR ( Amer) 34 L, Glucose 182 H, Calcium 7.6 L I & O for Labs for Last 24 Hours: Intake & Output 03/10/23 03/11/23 03/12/23 03/13/23 11:59 11:59 11:59 11:59 Intake Total 2079.437 / 2079.437 3882.252 / 3882.252 3626.008 / 3626.008 1620 / 1620 Output Total 3725 / 3725 300 / 300 400 / 400 Balance 2049.437 / 2049.437 157.252 / 824.501 6919.008 / 3326.008 1220 / 1220 Weight 210 lb 9.616 oz 210 lb 9.6 oz 232 lb 9 oz 232 lb 9.015 oz Constitutional: Present mild distress Comment:: Dyspneic Respiratory: Present accessory muscle use, decreased breath sounds (right base), CTA bilaterally and able to speak in complete sentences Comment:: Dyspneic with with speaking Cardiac: Present Irregularly Regular and Tachycardia Comment:: Appears atrial fibrillation with rapid ventricular response. GI: Present soft and normal bowel sounds; Absent distention or tenderness Extremities: Present edema (Bilateral lower extremity) Neuro: Present alert and oriented x 3 Comment:: Conversant Assessment and Plan *Assessment and plan (1) Hypovolemic shock: Status: Acute Category: Medical Code(s): R57.1 - Hypovolemic shock (2) LORE (acute kidney injury): Status: Acute Category: Medical Code(s): N17.9 - Acute kidney failure, unspecified (3) Atrial fibrillation with rapid ventricular response: Status: Acute Category: Medical Code(s): I48.91 - Unspecified atrial fibrillation (4) HFrEF (heart failure with reduced ejection fraction): Status: Acute Category: Medical Code(s): I50.20 - Unspecified systolic (congestive) heart failure (5) Vomiting: Status: Acute Qualifiers: Nausea presence: with nausea Vomiting type: unspecified Qualified Code(s): R11.2 - Nausea with vomiting, unspecified Category: Medical Code(s): R11.10 - Vomiting, unspecified (6) Non morbid obesity: Status: Acute Category: Medical Code(s): E66.9 - Obesity, unspecified (7) Elevated bilirubin: Status: Acute Category: Medical Code(s): R17 - Unspecified jaundice (8) Elevated brain natriuretic peptide (BNP) level: Status: Acute Category: Medical Code(s): R79.89 - Other specified abnormal findings of blood chemistry (9) Hyponatremia: Status: Acute Category: Medical Code(s): E87.1 - Hypo-osmolality and hyponatremia (10) Sepsis: Status: Acute Qualifiers: Acute renal failure type: unspecified Sepsis acute organ dysfunction status: with acute organ dysfunction Sepsis type: sepsis due to unspecified organism Severe sepsis acute organ dysfunction type: acute renal failure Severe sepsis shock status: without septic shock Qualified Code(s): A41.9 - Sepsis, unspecified organism; R65.20 - Severe sepsis without septic shock; N17.9 - Acute kidney failure, unspecified Category: Medical Code(s): A41.9 - Sepsis, unspecified organism (11) Acute dehydration: Status: Acute Category: Medical Code(s): E86.0 - Dehydration (12) Acute hyperglycemia: Status: Acute Category: Medical Code(s): R73.9 - Hyperglycemia, unspecified (13) Elevated lactic acid level: Status: Acute Category: Medical Code(s): R79.89 - Other specified abnormal findings of blood chemistry (14) Acute hyponatremia: Status: Acute Category: Medical Code(s): E87.1 - Hypo-osmolality and hyponatremia (15) Major depressive disorder: Status: Acute Qualifiers: Active/Remission status: remission status unspecified Major depression recurrence: unspecified whether recurrent Qualified Code(s): F32.9 - Major depressive disorder, single episode, unspecified Category: Medical Code(s): F32.9 - Major depressive disorder, single episode, unspecified Plan Cardiology to follow. Continue with current antibiotics. PICC line has been placed. The right base is diminished and CXR from yesterday showed a developing right effusion. Will get another CXR. White blood cell count normalized. Creatinine has improved slightly but sodium is lower today. Will discuss with Dr. Ortiz. Dr. Ortiz entry - Saw patient, agree with above note.
--- NOTE | 2023-03-13 08:33 | XR_ITS ---
FINAL REPORT CLINICAL HISTORY: pleural effusion right COMPARISON: 03/12/2023 FINDINGS: Left PICC line is present with the tip in the SVC. The heart size is normal. The mediastinum is normal. Mild patchy airspace opacity in the right infrahilar region has improved compared to the prior study. There are no pleural effusions. There is no pneumothorax. There is no osseous abnormality. IMPRESSION: Findings consistent with resolving pneumonia. Reviewed, Interpreted and Dictated by Adonis Sen MD Transcribed by Mary Amanda Authenticated and [facility]
--- NOTE | 2023-03-13 09:03 | EXP.PHA.PN ---
Subjective *Date: 03/13/23 *Time: 09:03 Medical Exam Vital signs and Labs for Last 24 Hours: Vital Signs Temp Pulse Pulse Resp BP Pulse Ox O2 Del Method 03/13/23 07:52 97.8 F 69 18 93/56 L 95 Room Air 03/13/23 04:00 73 03/13/23 04:00 98.1 F 116 H 17 120/64 94 L 03/13/23 00:00 89 03/13/23 07:00 Room Air 03/13/23 05:00 Room Air 03/13/23 03:00 Room Air 03/13/23 01:00 Room Air 03/13/23 00:00 98 F 87 18 131/65 93 L 03/12/23 23:00 Room Air 03/12/23 20:00 110 H 03/12/23 21:00 Room Air 03/12/23 20:00 Room Air 03/12/23 20:00 98 F 119 H 20 121/71 94 L Room Air 03/12/23 16:00 90 03/12/23 18:34 Venturi Mask 03/12/23 16:50 Room Air 03/12/23 16:00 98.1 F 66 22 84/45 L 96 Room Air 03/12/23 15:57 Venturi Mask 03/12/23 15:00 Venturi Mask 03/12/23 14:00 102 H 22 98/72 L 96 Venturi Mask 03/12/23 12:00 100 H 03/12/23 12:46 Room Air 03/12/23 12:00 98 H 25 H 152/54 H 93 L Room Air 03/12/23 11:00 Room Air 03/12/23 10:00 147 H 29 H 103/67 L 96 Room Air 03/12/23 09:30 99.5 F O2 Flow Rate FiO2 03/13/23 07:52 03/13/23 04:00 03/13/23 04:00 03/13/23 00:00 03/13/23 07:00 03/13/23 05:00 03/13/23 03:00 03/13/23 01:00 03/13/23 00:00 03/12/23 23:00 03/12/23 20:00 03/12/23 21:00 03/12/23 20:00 03/12/23 20:00 03/12/23 16:00 03/12/23 18:34 03/12/23 16:50 03/12/23 16:00 03/12/23 15:57 03/12/23 15:00 15 03/12/23 14:00 15 50 03/12/23 12:00 03/12/23 12:46 03/12/23 12:00 03/12/23 11:00 03/12/23 10:00 03/12/23 09:30 Intake and Output 03/12/23 03/13/23 03/13/23 23:59 07:59 15:59 Intake Total 740 / 2758 340 / 340 Output Total 250 / 400 Balance 490 / 2358 340 / 340 Intake: Intake, Oral Amount 740 / 2160 340 / 340 Output: Output, Urine Amount 250 / 400 Other: Number of Voids 1 Number of Unmeasured Voids 1 Number of Bowel Movements 1 Weight 105.489 kg Patient Weight 03/13/23 23:59 Weight 105.489 kg Laboratory Results - last 24 hr 03/12/23 10:59: POC Glucose 245 H 03/12/23 20:29: POC Glucose 200 H 03/13/23 06:16: POC Glucose 176 H 03/13/23 06:33: WBC 10.1 D, RBC 3.74 L, Hgb 12.2, Hct 36.9 L, MCV 98.7, MCH 32.5 H, MCHC 32.9, RDW 15.9, Plt Count 105 L, MPV 9.3, Neut % (Auto) 78.7, Lymph % (Auto) 12.0, [place] % (Auto) 7.2, Eos % (Auto) 1.9, Baso % (Auto) 0.1, Neut # (Auto) 8.0 H, Lymph # (Auto) 1.2, [place] # (Auto) 0.7, Eos # (Auto) 0.2, Baso # (Auto) 0.0, Sodium 129 L, Potassium 4.0, Chloride 104, Carbon Dioxide 15 L, Anion Gap 14.0, BUN 39 H, Creatinine 1.80 H, Estimated Creat Clear 23, Estimated GFR 28 L, Est GFR ( Amer) 34 L, Glucose 182 H, Calcium 7.6 L I & O for Labs for Last 24 Hours: Intake & Output 03/10/23 03/11/23 03/12/23 03/13/23 23:59 23:59 23:59 23:59 Intake Total 4641.688 / 4641.688 3568.009 / 3568.009 2658 / 2758 340 / 340 Output Total 1530 / 2930 2525 / 2525 400 / 400 Balance 3111.688 / 4412.337 7921.009 / 4669.465 9974 / 2358 340 / 340 Weight 95.527 kg 95.52 kg 105.489 kg 105.489 kg The patient's infection will respond to the chosen ABx?: Yes (BLOOD CULTURE = E. COLI, SENSITIVITY PENDING, WBC 10.1, AFEBRILE OVER 24) Is the patient receiving the right drug, dose, and route?: Yes Could a more targeted ABx be ordered?: No
[2023-03-13] MEDS: INSULIN GLARGINE 100 UNITS/ML 3ML FLEXPEN 10 UNIT SQ (09:34)
[2023-03-13] MEDS: POTASSIUM CHLORIDE 10MEQ CAPSULE.ER 10 MEQ PO (09:35)
[2023-03-13] MEDS: METOPROLOL TARTRATE 50MG TABLET 50 MG PO ×2 (09:35→20:43)
[2023-03-13] MEDS: CEFEPIME HCL 2 GM in 0.9 % SODIUM CHLORIDE 100 ML IV (09:35)
--- NOTE | 2023-03-13 11:05 | P.PN_ITS ---
Subjective Subjective Date: 03/13/23 Time: 10:00 Interval history: Metoprolol resumed yesterday, today she has significantly improved blood pressure and heart rate. She remains in A-fib with rate 60-100. Her blood pressures are low normal 100 systolic. She reports feeling a bit stronger, she is able to tolerate p.o. intake but still overall very weak and sleeping. Labs improving. Exam Data for Last 24 hours Vital signs and Labs for Last 24 Hours: Temp Pulse Resp BP Pulse Ox O2 Del Method O2 Flow Rate 97.8 F 84 18 93/56 L 95 Room Air 15 03/13/23 07:52 03/13/23 08:00 03/13/23 07:52 03/13/23 07:52 03/13/23 07:52 03/13/23 07:52 03/12/23 15:00 FiO2 50 03/12/23 14:00 Laboratory Results - last 24 hr 03/12/23 10:59: POC Glucose 245 H 03/12/23 20:29: POC Glucose 200 H 03/13/23 06:16: POC Glucose 176 H 03/13/23 06:33: WBC 10.1 D, RBC 3.74 L, Hgb 12.2, Hct 36.9 L, MCV 98.7, MCH 32.5 H, MCHC 32.9, RDW 15.9, Plt Count 105 L, MPV 9.3, Neut % (Auto) 78.7, Lymph % (Auto) 12.0, [place] % (Auto) 7.2, Eos % (Auto) 1.9, Baso % (Auto) 0.1, Neut # (Auto) 8.0 H, Lymph # (Auto) 1.2, [place] # (Auto) 0.7, Eos # (Auto) 0.2, Baso # (Auto) 0.0, Sodium 129 L, Potassium 4.0, Chloride 104, Carbon Dioxide 15 L, Anion Gap 14.0, BUN 39 H, Creatinine 1.80 H, Estimated Creat Clear 23, Estimated GFR 28 L, Est GFR ( Amer) 34 L, Glucose 182 H, Calcium 7.6 L I & O for Last 24 hours: Intake & Output 03/10/23 03/11/23 03/12/23 03/13/23 23:59 23:59 23:59 23:59 Intake Total 4641.688 / 4641.688 3568.009 / 3568.009 2658 / 2758 340 / 340 Output Total 1530 / 2930 2525 / 2525 400 / 400 0 / 0 Balance 3111.688 / 6642.397 4092.009 / 5484.676 6072 / 2358 340 / 340 Weight 210 lb 9.616 oz 210 lb 9.369 oz 232 lb 9 oz 232 lb 9.015 oz Microbiology Reports for the Last 24 Hours: Microbiology 03/09/23 23:35 Blood Blood Culture - Preliminary 03/09/23 23:41 Blood Blood Culture - Preliminary Constitutional Constitutional: no acute distress and cooperative *Routine HEENT Exam Eye: Present PERRL *Routine Respiratory Exam Respiratory: Present CTA bilaterally; Absent accessory muscle use, wheezes or crackles *Routine Cardiovascular Exam Cardiovascular: Present RRR, Normal S1 and Normal S2; Absent murmur, gallop or rubs *Routine Abdominal Exam Abdominal: Present soft; Absent tenderness *Routine Extremities Exam Extremities: Present pulses intact; Absent cyanosis or edema *Routine Skin Exam Skin: Present intact; Absent erythema or wounds *Routine Neurological Exam Neurological: Present alert and oriented X3 Routine Psychiatric Exam Psychiatric: Present cooperative Progress Note: A&P Assessment and plan (1) Hypovolemic shock: Status: Acute (2) LORE (acute kidney injury): Status: Acute (3) Atrial fibrillation with rapid ventricular response: Status: Acute (4) HFrEF (heart failure with reduced ejection fraction): Status: Acute (5) Vomiting: Status: Acute (6) Non morbid obesity: Status: Acute (7) Elevated bilirubin: Status: Acute (8) Elevated brain natriuretic peptide (BNP) level: Status: Acute (9) Hyponatremia: Status: Acute (10) Sepsis: Status: Acute (11) Acute dehydration: Status: Acute (12) Acute hyperglycemia: Status: Acute (13) Elevated lactic acid level: Status: Acute (14) Acute hyponatremia: Status: Acute (15) Major depressive disorder: Status: Acute Assessment and Plan Assessment and Plan for All Diagnoses:: Hypovolemic Shock - pt was vomiting for 3 days then developed BP in 60s with EF 15% and A-fib RVR. 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 Continue holding Entresto, Aldactone due to low normal BP. Permanent A-fib - continue renally adjsuted Xarelto - hold AVB due to hypotension - 03/12: RVR 140s today, asymptomatic. Resume Metoprolol at 50mg BID - 03/13: Rate controlled on half her normal dose of Metoprolol Acute Gastroenteritis with leukocytosis, hyperglycemia and hyponatremia - Severe N/V x3 days prior to arrival - stable now - she had PICC line placed for IV antibiotics - plans per primary service - 03/13: Tolerating PO intake. Still has diarrhea. On IV Antibiotics. Acute Kidney Injury - Cr Baseline 1.1, now 2.0 on arrival - 03/13: Improving, 1.8 03/13: Stable/improving daily. No CV changes today, continue current meds and plan of care.
[2023-03-13] MEDS: FUROSEMIDE 40MG/4ML VIAL 40 MG IV (13:53)
[2023-03-13] MEDS: RIVAROXABAN 15MG TABLET 15 MG PO (17:22)
[2023-03-13 17:23] LABS: POC Glucose,Bedside 257 (70-110)
--- NOTE | 2023-03-13 19:12 | PC.NURSE ---
Patient a&ox4 and vss. Patient tolerating IV antibiotics, patient had edema in bilateral lower legs, one dose of lasix iv given and patient felt less edematous.
[2023-03-13 20:24] LABS: POC Glucose,Bedside 228 (70-110)
[2023-03-14] VITALS (7 sets, daily range): BP systolic 90–122; BP diastolic 52–78; PULSE 68–130; RESP 16–18; TEMP 36.2–36.9; O2SAT 96–98; BMI 43.9
[2023-03-14] MEDS: dilTIAZem 30MG TABLET 30 MG PO ×4 (03:58→21:00)
--- NOTE | 2023-03-14 05:22 | PC.NURSE ---
Patient has rested well this shift with no acute changes noted. Patient remains in Afib on the monitors, heart rate will go to 130s with any exertion but is able to recover post excertion. Patient has no complaints this shift. Has been using bedside commode independently. Call allen, personal belongings, bedside table, and water pitcher all within reach.
[2023-03-14 06:11] LABS: POC Glucose,Bedside 167 (70-110)
[2023-03-14] MEDS: LEVOTHYROXINE 175MCG (0.175MG) TAB 175 MCG PO (06:24)
[2023-03-14] MEDS: humaLOG 100 UNITS/ML 3ML VIAL (SSI) SQ ×3 (06:24→20:59)
[2023-03-14 07:54] LABS: Basophils # 0.1 K/mm3 (0-0.2); Basophils % 0.3 % (0.1-2.0); Eosinophils # 0.2 K/mm3 (0.0-0.4); Eosinophils % 1.5 % (0.1-12.0); Hematocrit 35.7 % (37.0-47.0); Hemoglobin 11.9 g/dL (12.2-16.2); Lymphocytes # 1.6 K/mm3 (0.7-4.5); Lymphocytes % 11.3 % (10-50); Mean Corpuscular HGB Conc 33.2 g/dL (31.8-35.4); Mean Corpuscular Hemoglobin 32.4 pg (27.0-31.2); Mean Corpuscular Volume 97.6 fl (81-99); Mean Platelet Volume 9.4 fl (7.4-10.4); Monocytes # 0.9 K/mm3 (0.1-1.0); Monocytes % 6.6 % (1.7-9.3); Neutrophils # 11.4 K/mm3 (1.8-7.8); Neutrophils % 80.3 % (37.0-80.0); Platelet Count 154 K/mm3 (142-424); Red Blood Count 3.66 M/mm3 (4.20-5.40); Red Cell Distribution Width 15.9 % (11.5-17.5); White Blood Count 14.2 K/mm3 (4.8-10.8)
[2023-03-14 08:04] LABS: Anion Gap 12.2 mEq/L (5-15); Blood Urea Nitrogen 42 mg/dl (7-17); Carbon Dioxide 18 mmol/L (22.0-30.0); Chloride 104 mmol/L (98-107); Creatinine Clearance Estimated 25 mL/min (50-200); Estimated Glomerular Filt Rate 30 ml/min (>60); GFR (African American) 36 ML/MIN (>60); Glucose 185 mg/dl (74-100); Potassium 4.2 mmoL/L (3.5-5.1); Sodium 130 mmol/L (136-145)
[2023-03-14] MEDS: INSULIN GLARGINE 100 UNITS/ML 3ML FLEXPEN 10 UNIT SQ (08:41)
[2023-03-14] MEDS: METOPROLOL TARTRATE 50MG TABLET 50 MG PO ×2 (08:41→21:00)
[2023-03-14] MEDS: POTASSIUM CHLORIDE 10MEQ CAPSULE.ER 10 MEQ PO (08:41)
--- NOTE | 2023-03-14 08:56 | EXP.ACUTE.PN ---
Subjective *Date: 03/14/23 *Time: 09:09 Interval history: Patient is feeling better today. She has been off of her oxygen since yesterday. She does say that she needs it when she exerts herself as her oxygen saturations drop and she gets very short of breath. She puts it back on for short period of time to increase her oxygen saturations. She denies any pain. Her diarrhea has resolved. She is eating and sleeping well. Medical Exam Vital signs and Labs for Last 24 Hours: Vital Signs Temp Pulse Pulse Pulse Resp BP Pulse Ox 03/14/23 08:53 03/14/23 08:00 97.2 F L 82 18 122/78 97 03/14/23 04:00 100 H 03/14/23 04:00 98 F 77 16 90/53 L 97 03/14/23 00:00 75 03/14/23 00:00 97.9 F 70 17 102/59 L 96 03/13/23 20:00 97 H 03/13/23 20:00 97.9 F 61 17 126/72 99 03/13/23 16:00 85 03/13/23 15:17 98.0 F 96 H 18 79/56 L 100 03/13/23 12:00 86 03/13/23 11:12 98.3 F 106 H 18 87/53 L 93 L O2 Del Method 03/14/23 08:53 Room Air 03/14/23 08:00 Room Air 03/14/23 04:00 03/14/23 04:00 03/14/23 00:00 03/14/23 00:00 03/13/23 20:00 03/13/23 20:00 03/13/23 16:00 03/13/23 15:17 Room Air 03/13/23 12:00 03/13/23 11:12 Room Air Intake and Output 03/13/23 03/14/23 03/14/23 19:59 03:59 11:59 Intake Total 720 / 1275 120 / 1275 435 / 1275 Output Total 0 / 400 400 / 400 Balance 720 / 875 120 / 875 35 / 875 Intake: Intake, Oral Amount 720 / 1275 120 / 1275 435 / 1275 Output: Output, Urine Amount 0 / 400 400 / 400 Other: Number of Unmeasured Voids 1 1 1 Weight 232 lb 9.015 oz Patient Weight 03/14/23 11:59 Weight 232 lb 9.015 oz Laboratory Results - last 24 hr 03/13/23 16:49: POC Glucose 257 H 03/13/23 20:12: POC Glucose 228 H 03/14/23 05:46: POC Glucose 167 H 03/14/23 07:10: WBC 14.2 H D, RBC 3.66 L, Hgb 11.9 L, Hct 35.7 L, MCV 97.6, MCH 32.4 H, MCHC 33.2, RDW 15.9, Plt Count 154 D, MPV 9.4, Neut % (Auto) 80.3 H, Lymph % (Auto) 11.3, [place] % (Auto) 6.6, Eos % (Auto) 1.5, Baso % (Auto) 0.3, Neut # (Auto) 11.4 H, Lymph # (Auto) 1.6, [place] # (Auto) 0.9, Eos # (Auto) 0.2, Baso # (Auto) 0.1, Sodium 130 L, Potassium 4.2, Chloride 104, Carbon Dioxide 18 L, Anion Gap 12.2, BUN 42 H, Creatinine 1.70 H, Estimated Creat Clear 25, Estimated GFR 30 L, Est GFR ( Amer) 36 L, Glucose 185 H, Calcium 8.0 L I & O for Labs for Last 24 Hours: Intake & Output 03/11/23 03/12/23 03/13/23 03/14/23 11:59 11:59 11:59 11:59 Intake Total 3882.252 / 3882.252 3626.008 / 3626.008 1620 / 1620 1275 / 1275 Output Total 3725 / 3725 300 / 300 400 / 400 400 / 400 Balance 157.252 / 465.564 0153.008 / 3326.008 1220 / 1220 875 / 875 Weight 210 lb 9.6 oz 232 lb 9 oz 232 lb 9.015 oz 232 lb 9.015 oz Microbiology Reports for the Last 24 Hours: Microbiology 03/10/23 02:30 Urine,Clean Catch Urine Culture - Final 03/09/23 23:41 Blood Blood Culture - Final 03/09/23 23:35 Blood Blood Culture - Final Constitutional: Present mild distress Comment:: Dyspneic, just moved to the toilet Respiratory: Present accessory muscle use, decreased breath sounds (right base), CTA bilaterally and able to speak in complete sentences Comment:: Dyspneic with with speaking Cardiac: Present Irregularly Regular and Tachycardia Comment:: Appears atrial fibrillation with rapid ventricular response. GI: Present soft and normal bowel sounds; Absent distention or tenderness Extremities: Present edema (Bilateral lower extremity) Neuro: Present alert and oriented x 3 Comment:: Conversant Assessment and Plan *Assessment and plan (1) Hypovolemic shock: Status: Acute Category: Medical Code(s): R57.1 - Hypovolemic shock (2) LORE (acute kidney injury): Status: Acute Category: Medical Code(s): N17.9 - Acute kidney failure, unspecified (3) Atrial fibrillation with rapid ventricular response: Status: Acute Category: Medical Code(s): I48.91 - Unspecified atrial fibrillation (4) HFrEF (heart failure with reduced ejection fraction): Status: Acute Category: Medical Code(s): I50.20 - Unspecified systolic (congestive) heart failure (5) Vomiting: Status: Acute Qualifiers: Nausea presence: with nausea Vomiting type: unspecified Qualified Code(s): R11.2 - Nausea with vomiting, unspecified Category: Medical Code(s): R11.10 - Vomiting, unspecified (6) Non morbid obesity: Status: Acute Category: Medical Code(s): E66.9 - Obesity, unspecified (7) Elevated bilirubin: Status: Acute Category: Medical Code(s): R17 - Unspecified jaundice (8) Elevated brain natriuretic peptide (BNP) level: Status: Acute Category: Medical Code(s): R79.89 - Other specified abnormal findings of blood chemistry (9) Hyponatremia: Status: Acute Category: Medical Code(s): E87.1 - Hypo-osmolality and hyponatremia (10) Sepsis: Status: Acute Qualifiers: Acute renal failure type: unspecified Sepsis acute organ dysfunction status: with acute organ dysfunction Sepsis type: sepsis due to unspecified organism Severe sepsis acute organ dysfunction type: acute renal failure Severe sepsis shock status: without septic shock Qualified Code(s): A41.9 - Sepsis, unspecified organism; R65.20 - Severe sepsis without septic shock; N17.9 - Acute kidney failure, unspecified Category: Medical Code(s): A41.9 - Sepsis, unspecified organism (11) Acute dehydration: Status: Acute Category: Medical Code(s): E86.0 - Dehydration (12) Acute hyperglycemia: Status: Acute Category: Medical Code(s): R73.9 - Hyperglycemia, unspecified (13) Elevated lactic acid level: Status: Acute Category: Medical Code(s): R79.89 - Other specified abnormal findings of blood chemistry (14) Acute hyponatremia: Status: Acute Category: Medical Code(s): E87.1 - Hypo-osmolality and hyponatremia (15) Major depressive disorder: Status: Acute Qualifiers: Active/Remission status: remission status unspecified Major depression recurrence: unspecified whether recurrent Qualified Code(s): F32.9 - Major depressive disorder, single episode, unspecified Category: Medical Code(s): F32.9 - Major depressive disorder, single episode, unspecified (16) Bacteremia due to Escherichia coli: Status: Acute Category: Medical Code(s): R78.81 - Bacteremia; B96.20 - Unspecified Escherichia coli [E. coli] as the cause of diseases classified elsewhere (17) E. coli UTI: Status: Acute Category: Medical Code(s): N39.0 - Urinary tract infection, site not specified; B96.20 - Unspecified Escherichia coli [E. coli] as the cause of diseases classified elsewhere Plan Chest x-ray from yesterday showed no pleural effusions and findings consistent with resolving pneumonia. Blood cultures have returned positive for E. coli urine culture also returned positive for E. coli. Will do a walk test today to see if she qualifies for home oxygen and she can possibly be discharged on continued antibiotics. Dr. Ortiz entry - Saw patient, agree with above note. She is improving, discharge planning is ongoing.
[2023-03-14] MEDS: CEFEPIME HCL 2 GM in 0.9 % SODIUM CHLORIDE 100 ML IV (09:42)
[2023-03-14 10:09] LABS: POC Glucose,Bedside 395 (70-110)
--- NOTE | 2023-03-14 10:47 | HMH.OTEV ---
OT Inpatient Evaluation Rehab OT IP Evaluation Start: 03/14/23 10:03 Freq: ONCE Status: Active Protocol: Document 03/14/23 10:39 [facility] (Rec: 03/14/23 10:46 [facility] [id number]) Rehab OT IP Assessment Subjective History Pt oriented x 3 on arrival. Pt agreeable to engage in therapy evaluation. Pt was admitted on 03/10/23 for LORE, organ dysfunction, and sepsis. History and physical report: Ms. Dunn is a 67 year old female patient of [facility] with a fairly complicated medical history. She has a long standing history of CHF, A. fib and insulin dependent type 2 diabetes. She presented to [facility] ER last night complaining of a 3 day history of nausea and vomiting. She states the emesis consisted of ingested food and drink. She is unsure what caused her to be so sick . She denies diarrhea. She did have subjective fever and chills Subjective I have become much more weak over the past few months. Prior to being in the hospital , pt lived at home alone. Pt claims normally she is independent with all ADLs and functional transfers. She uses a rollator during functional transfers. Pt is able to do small simple IADLs like light cleaning, laundry, and cooking. However family assists with deep cleaning, grocery shopping, etc. She no longer drives at this time. Objective Patient Orientation Person,Place,Birthday Right Upper Extremity Gross ROM Min Limitation <25% Left Upper Extremity Gross ROM Min Limitation <25% Shoulder ROM Limitations Muscle Weakness Elbow ROM Limitations Muscle Weakness Wrist Limitations of Range of Motion Muscle Weakness Bed Mobility bed mobility-scooting,bed mobility - supine/sit Assist Level Minimal x 1 (25% assist) Transfer Training Sit/Stand/Step Transfer Assist Level Minimal x 1 (25% assist) Rehab OT IP prob,goals,plan Problems Date of Evaluation: 03/14/23 OT IP Problems Bed Mobility,Transfers,Balance ,Self care,Safety Rehab Potential Rehab Potential Good Equipment Needs Assistive Devices Rolling / Wheeled Walker Plan OT intervention Plan Bed Mobility,Transfers,Balance ,Self care,Safety,Therapeutic Exercise OT Plan Frequency Daily Duration LOS Discharge Goals Bed Mobility Ability Standby Assistance Sit to Stand Chair Transfer Ability Contact Guard/Hand Hold Chair Transfer Ability Contact Guard/Hand Hold Chair Transfer Technique Sit to/from Ambulatory Chair Transfer Assistive Devices Rolling Walker Feeding Ability Assist with Tray Set Up Lower Body Dressing Ability Minimal Assistance Upper Body Dressing Ability Standby Assistance Bathing Ability Moderate Assistance Performing Toilet Hygiene Ability Minimal Assistance Overall Commode/Toilet Transfer Ability Contact Guard Commode/Toilet Transfer Technique Sit to/from Ambulatory Commode/Toilet Transfer Assistive Toilet Rails,Grab Bars Devices Oral Care Assist Standby Assistance Decrease in Endurance Yes Discharge Plan OT Discharge Plan Pt will continue to be seen for OT services while at [facility]. Pt would benefit most from short term rehab at [facility] following discharge. Continued skilled therapy is important in order for patient to improve strength, safety, endurance, ADL independence, and functional transfers to reach PLOF. Pt agreeable to this plan. Eval Complexity Eval Charge Codes 90145 - Moderate Complexity PHYSICIAN CERTIFICATION: I certify the specified therapy services for Margi Dunn are required, authorized, and reviewed every 30 days.
--- NOTE | 2023-03-14 10:54 | HMH.PTEV ---
Physical Therapy Evaluation Rehab PT IP Evaluation Start: 03/14/23 10:03 Freq: ONCE Status: Active Protocol: Document 03/14/23 10:49 [facility] (Rec: 03/14/23 10:54 [facility] [id number]) Subjective/History History History Pt oriented x 3 on arrival. Pt agreeable to engage in therapy evaluation. Pt was admitted on 03/10/23 for LORE, organ dysfunction, and sepsis. History and physical report: Ms. Dunn is a 67 year old female patient of [facility] with a fairly complicated medical history. She has a long standing history of CHF, A. fib and insulin dependent type 2 diabetes. She presented to [facility] ER last night complaining of a 3 day history of nausea and vomiting. She states the emesis consisted of ingested food and drink. She is unsure what caused her to be so sick . She denies diarrhea. She did have subjective fever and chills Pt lives alone at baseline, and is generally independent with all mobility usign a RW. Subjective Subjective Currently she reports feeling weak in general and has been feeling worse than normal for several weeks. She does agree to mobility assessment. New diagnosis of cancer in past 12 No months? Rehab PT IP Eval Objective Appearance Patient Behavior Appropriate Patient Orientation Person,Place,Time Difficulty following instructions none Speech Pattern Clear Ambulation Patient Able to Ambulate Yes Ambulation Observation IP General Gait Pattern Observation Wide Based Gait,Shuffling Step Ambulation Distance (feet) 15 Ambulation Assistive Device Rolling Walker Ambulation Ability Contact Guard/Hand Hold Balance Ability to Arise Able, uses arms to help Sitting Balance Steady, safe Standing Balance Steady, wide stance Dynamic Sitting Balance Ability Good Dynamic Standing Balance Ability Fair Transfers Bed Transfer Ability Contact Guard/Hand Hold Chair Transfer Ability Contact Guard/Hand Hold Sit to Stand Bed Transfer Ability Contact Guard/Hand Hold Sit to Stand Chair Transfer Ability Contact Guard/Hand Hold Rehab PT IP prob,goals,plan Problems Date of Evaluation: 03/14/23 PT IP Problems Bed Mobility,Transfers,Gait Rehab Potential Rehab Potential Good Plan PT Intervention Plan Bed Mobility,Transfers,Gait PT Plan Frequency Daily Duration LOS Discharge Goals Bed Transfer Ability Supervision/Stand by Sit to Stand Chair Transfer Ability Supervision/Stand by Ambulation Assistive Device Rolling Walker Ambulation Distance (feet) 30 Discharge Plan PT Discharge Plan Pt is currently most appropriate for rehab placement once medically stable for d/c. Skilled intervention is needed to prevent further debility, wounds, injury, and falls. Eval Complexity Eval Charge Codes 48207 - High Complexity PHYSICIAN CERTIFICATION: I certify the specified therapy services for Margi Dunn are required, authorized, and reviewed every 30 days.
--- NOTE | 2023-03-14 12:12 | SW/DCPLANNER ---
Addendum entered by [facility] 03/18/23 10:58: Per Yuridia this patient has been accepted to [facility]: patient is agreeable. ELLI has also updated MD office of approval. Addendum entered by [facility] 03/15/23 14:52: Solitario Shi w/ [facility] stated that precert is still pending for this patient. [facility] also stated that if patient is approved and medically stable for discharge they can accept over the weekend. Addendum entered by [facility] 03/15/23 09:32: Yuridia w/ [facility] stated she can accept this patient and will start precert. I will update patient today. Addendum entered by [facility] 03/14/23 16:00: Jennifer w/ [facility] stated that she can not accept this patient. Patient is agreeable for information to be faxed to Maris Hughes, [facility] and [facility]. Addendum entered by [facility] 03/14/23 13:14: Yael wagoner/ [facility] stated that she is not able to accept patient. Original Note: I spoke w/ this patient regarding plans once medically stable for discharge. PT/OT evaluated patient and recommended SNF level of care. Patient will also require IV antibiotics at time of discharge. Patient is agreeable to placement and prefers [facility]. Patient stated that if [facility] her she prefers to go to [facility]. Patient information will be faxed to [facility] adn [facility] today. I will continue to follow up w/ kati, MD and facilities.
[2023-03-14] MEDS: CEFTRIAXONE 1 GM 1 GM in 0.9 % SODIUM CHLORIDE 50 ML IV (12:24)
[2023-03-14] MEDS: INSULIN GLARGINE 100 UNITS/ML 3ML FLEXPEN 20 UNIT SQ (13:42)
--- NOTE | 2023-03-14 15:09 | P.PN_ITS ---
Subjective Subjective Date: 03/14/23 Time: 10:00 Interval history: Blood pressure and heart rate remained stable on metoprolol 50. She has not been able to resume her other heart failure meds at this time. Her creatinine is down to 1.7. Urine and blood cultures both positive for E. coli. She is awaiting transfer to rehab facility. Exam Data for Last 24 hours Vital signs and Labs for Last 24 Hours: Temp Pulse Resp BP Pulse Ox O2 Del Method O2 Flow Rate 97.6 F 73 18 95/62 L 98 Room Air 15 03/14/23 11:42 03/14/23 11:42 03/14/23 11:42 03/14/23 11:42 03/14/23 11:42 03/14/23 14:50 03/12/23 15:00 FiO2 50 03/12/23 14:00 Laboratory Results - last 24 hr 03/13/23 16:49: POC Glucose 257 H 03/13/23 20:12: POC Glucose 228 H 03/14/23 05:46: POC Glucose 167 H 03/14/23 07:10: WBC 14.2 H D, RBC 3.66 L, Hgb 11.9 L, Hct 35.7 L, MCV 97.6, MCH 32.4 H, MCHC 33.2, RDW 15.9, Plt Count 154 D, MPV 9.4, Neut % (Auto) 80.3 H, Lymph % (Auto) 11.3, [place] % (Auto) 6.6, Eos % (Auto) 1.5, Baso % (Auto) 0.3, Neut # (Auto) 11.4 H, Lymph # (Auto) 1.6, [place] # (Auto) 0.9, Eos # (Auto) 0.2, Baso # (Auto) 0.1, Sodium 130 L, Potassium 4.2, Chloride 104, Carbon Dioxide 18 L, Anion Gap 12.2, BUN 42 H, Creatinine 1.70 H, Estimated Creat Clear 25, Estimated GFR 30 L, Est GFR ( Amer) 36 L, Glucose 185 H, Calcium 8.0 L 03/14/23 09:58: POC Glucose 395 H* I & O for Last 24 hours: Intake & Output 03/11/23 03/12/23 03/13/23 03/14/23 23:59 23:59 23:59 23:59 Intake Total 3568.009 / 3568.009 2658 / 2758 1180 / 1180 535 / 535 Output Total 2525 / 2525 400 / 400 0 / 0 1350 / 1350 Balance 1043.009 / 4881.113 7097 / 2358 1180 / 1180 -815 / -815 Weight 210 lb 9.369 oz 232 lb 9 oz 232 lb 9.015 oz 232 lb 9.015 oz Microbiology Reports for the Last 24 Hours: Microbiology 03/10/23 02:30 Urine,Clean Catch Urine Culture - Final 03/09/23 23:41 Blood Blood Culture - Final 03/09/23 23:35 Blood Blood Culture - Final Constitutional Constitutional: no acute distress and cooperative *Routine HEENT Exam Eye: Present PERRL *Routine Respiratory Exam Respiratory: Present CTA bilaterally; Absent accessory muscle use, wheezes or crackles *Routine Cardiovascular Exam Cardiovascular: Present RRR, Normal S1 and Normal S2; Absent murmur, gallop or rubs *Routine Abdominal Exam Abdominal: Present soft; Absent tenderness *Routine Extremities Exam Extremities: Present pulses intact; Absent cyanosis or edema *Routine Skin Exam Skin: Present intact; Absent erythema or wounds *Routine Neurological Exam Neurological: Present alert and oriented X3 Routine Psychiatric Exam Psychiatric: Present cooperative Progress Note: A&P Assessment and plan (1) Hypovolemic shock: Status: Acute (2) LORE (acute kidney injury): Status: Acute (3) Atrial fibrillation with rapid ventricular response: Status: Acute (4) HFrEF (heart failure with reduced ejection fraction): Status: Acute (5) Vomiting: Status: Acute (6) Non morbid obesity: Status: Acute (7) Elevated bilirubin: Status: Acute (8) Elevated brain natriuretic peptide (BNP) level: Status: Acute (9) Hyponatremia: Status: Acute (10) Sepsis: Status: Acute (11) Acute dehydration: Status: Acute (12) Acute hyperglycemia: Status: Acute (13) Elevated lactic acid level: Status: Acute (14) Acute hyponatremia: Status: Acute (15) Major depressive disorder: Status: Acute (16) Bacteremia due to Escherichia coli: Status: Acute (17) E. coli UTI: Status: Acute Assessment and Plan Assessment and Plan for All Diagnoses:: Septic/Hypovolemic Shock - pt was vomiting for 3 days then developed BP in 60s with EF 15% and A-fib RVR. - Cr doubled, Lactic Acidosis and she was confused and weak indicating end organ damage - symptoms and vitals improved with Levophed antiemetics and fluid resuscitation - 03/12: Symptoms resolved - 03/13: Stable, no change - 03/14: Blood and urine cultures positive for E. 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 Continue holding Entresto, Aldactone due to low normal BP. -03/14: Vitals remained stable, she appears euvolemic. Advised patient over the coming weeks her blood pressure will start to rise as her infection clears and she will need to slowly resume her blood pressure medicines. We will plan to follow-up with her in the office in 1 week, she can call before then with any questions on resuming her medications. Permanent A-fib - continue renally adjsuted Xarelto - hold AVB due to hypotension - 03/12: RVR 140s today, asymptomatic. Resume Metoprolol at 50mg BID - 03/13: Rate controlled on half her normal dose of Metoprolol -03/14: No change, continue metoprolol and Xarelto Acute Gastroenteritis with leukocytosis, hyperglycemia and hyponatremia - Severe N/V x3 days prior to arrival - stable now - she had PICC line placed for IV antibiotics - plans per primary service - 03/13: Tolerating PO intake. Still has diarrhea. On IV Antibiotics. Acute Kidney Injury - Cr Baseline 1.1, now 2.0 on arrival - 03/13: Improving, 1.8 03/14: Stable/improving daily. No CV changes today, continue current meds and plan of care. We will sign off at this time, she needs follow-up in the clinic 1 week. Call before then with any questions.
--- NOTE | 2023-03-14 15:43 | PC.NURSE ---
Pt. aox 4, up with assist times one to bsc, 97% on RA, PT and OT consulted.
[2023-03-14] MEDS: RIVAROXABAN 15MG TABLET 15 MG PO (16:25)
[2023-03-14 16:36] LABS: POC Glucose,Bedside 126 (70-110)
[2023-03-14 20:37] LABS: POC Glucose,Bedside 301 (70-110)
[2023-03-15] VITALS (13 sets, daily range): BP systolic 94–128; BP diastolic 53–85; PULSE 44–129; RESP 16–20; TEMP 36.6–37; O2SAT 90–100; BMI 45.1
[2023-03-15] MEDS: dilTIAZem 30MG TABLET 30 MG PO ×4 (02:39→20:21)
--- NOTE | 2023-03-15 04:07 | PC.NURSE ---
PATIENT RESTING WELL. NO C/O PAIN, SOA, OR DISCOMFORT. VITAL SIGNS STABLE. AFIB CONTROLLED RATE/BBB.
[2023-03-15 05:19] LABS: POC Glucose,Bedside 161 (70-110)
[2023-03-15] MEDS: humaLOG 100 UNITS/ML 3ML VIAL (SSI) SQ ×4 (06:00→20:21)
[2023-03-15] MEDS: LEVOTHYROXINE 175MCG (0.175MG) TAB 175 MCG PO (06:00)
[2023-03-15 06:14] LABS: Basophils # 0.1 K/mm3 (0-0.2); Basophils % 0.4 % (0.1-2.0); Eosinophils # 0.3 K/mm3 (0.0-0.4); Eosinophils % 1.8 % (0.1-12.0); Hematocrit 33.7 % (37.0-47.0); Hemoglobin 11.3 g/dL (12.2-16.2); Lymphocytes # 2.2 K/mm3 (0.7-4.5); Lymphocytes % 12.9 % (10-50); Mean Corpuscular HGB Conc 33.6 g/dL (31.8-35.4); Mean Corpuscular Hemoglobin 32.5 pg (27.0-31.2); Mean Corpuscular Volume 96.7 fl (81-99); Monocytes # 1.2 K/mm3 (0.1-1.0); Monocytes % 7.1 % (1.7-9.3); Neutrophils # 13.5 K/mm3 (1.8-7.8); Neutrophils % 77.7 % (37.0-80.0); Platelet Count 193 K/mm3 (142-424); Red Blood Count 3.48 M/mm3 (4.20-5.40); Red Cell Distribution Width 16.1 % (11.5-17.5); White Blood Count 17.4 K/mm3 (4.8-10.8)
[2023-03-15 06:18] LABS: Anion Gap 14.2 mEq/L (5-15); Blood Urea Nitrogen 37 mg/dl (7-17); Calcium 8.5 mg/dl (8.4-10.2); Carbon Dioxide 18 mmol/L (22.0-30.0); Chloride 103 mmol/L (98-107); Creatinine Clearance Estimated 26 mL/min (50-200); Estimated Glomerular Filt Rate 32 ml/min (>60); GFR (African American) 39 ML/MIN (>60); Glucose 168 mg/dl (74-100); Potassium 4.2 mmoL/L (3.5-5.1); Sodium 131 mmol/L (136-145)
[2023-03-15 06:22] LABS: MANUAL DIFFERENTIAL MANUAL DIFFERENTIAL (MANUAL DIFF)
[2023-03-15] MEDS: POTASSIUM CHLORIDE 10MEQ CAPSULE.ER 10 MEQ PO (07:59)
[2023-03-15] MEDS: INSULIN GLARGINE 100 UNITS/ML 3ML FLEXPEN 10 UNIT SQ (07:59)
[2023-03-15] MEDS: METOPROLOL TARTRATE 50MG TABLET 50 MG PO ×2 (07:59→20:21)
[2023-03-15 08:11] LABS: Eosinophils % 6 % (0-3); Lymphocytes % 4 % (10-50); Monocytes % 17 % (2-9); Neutrophils % 71 % (42-76); Total Cells Counted 100
[2023-03-15 08:15] LABS: Platelet Estimate Normal
[2023-03-15 08:17] LABS: RBC Morphology Normal
--- NOTE | 2023-03-15 08:39 | P.PN_ITS ---
Subjective *Date: 03/15/23 *Time: 08:54 Interval history: Patient states she is more short of breath this morning. She feels like her arms and legs are more swollen. She has not gotten diuretics since she has been here. She normally takes Lasix and spironolactone at home. She also has developed a slight cough and some wheezing. Medical Exam Vital signs and Labs for Last 24 Hours: Vital Signs Temp Pulse Pulse Pulse Resp BP Pulse Ox 03/15/23 07:58 97.9 F 63 18 114/57 L 90 L 03/15/23 07:32 03/15/23 07:29 95 03/15/23 06:26 03/15/23 04:00 75 75 16 105/56 L 03/15/23 05:00 03/15/23 04:00 94 H 03/15/23 02:53 03/15/23 01:00 03/15/23 00:00 98.6 F 97 H 18 125/60 91 L 03/15/23 00:00 98 H 03/14/23 23:00 03/14/23 21:00 03/14/23 20:00 98 03/14/23 20:00 93 H 03/14/23 20:00 98.1 F 68 17 101/65 L 98 03/14/23 16:00 110 H 03/14/23 17:39 03/14/23 12:00 80 03/14/23 16:00 98.4 F 75 16 103/52 L 98 03/14/23 16:03 03/14/23 14:50 03/14/23 12:31 03/14/23 11:42 97.6 F 73 18 95/62 L 98 03/14/23 08:53 O2 Del Method O2 Flow Rate 03/15/23 07:58 Room Air 03/15/23 07:32 Room Air 03/15/23 07:29 Room Air 03/15/23 06:26 Room Air 03/15/23 04:00 03/15/23 05:00 Room Air 03/15/23 04:00 03/15/23 02:53 Room Air 03/15/23 01:00 Room Air 03/15/23 00:00 03/15/23 00:00 03/14/23 23:00 Nasal Cannula 1 03/14/23 21:00 Nasal Cannula 1 03/14/23 20:00 Nasal Cannula 1 03/14/23 20:00 03/14/23 20:00 Room Air 03/14/23 16:00 03/14/23 17:39 Room Air 03/14/23 12:00 03/14/23 16:00 Room Air 03/14/23 16:03 Room Air 03/14/23 14:50 Room Air 03/14/23 12:31 Room Air 03/14/23 11:42 Room Air 03/14/23 08:53 Room Air Intake and Output 03/14/23 03/15/23 03/15/23 19:59 03:59 11:59 Intake Total 990 / 1680 220 / 1680 470 / 1680 Output Total 300 / 1350 250 / 1350 800 / 1350 Balance 690 / 330 -30 / 330 -330 / 330 Intake: Intake, Oral Amount 990 / 1680 220 / 1680 470 / 1680 Output: Output, Urine Amount 300 / 1350 250 / 1350 800 / 1350 Other: Number of Unmeasured Voids 1 1 1 Weight 238 lb 14.4 oz Patient Weight 03/15/23 11:59 Weight 238 lb 14.4 oz Laboratory Results - last 24 hr 03/14/23 09:58: POC Glucose 395 H* 03/14/23 16:00: POC Glucose 126 H 03/14/23 20:23: POC Glucose 301 H* 03/15/23 05:09: POC Glucose 161 H 03/15/23 05:57: WBC 17.4 H, RBC 3.48 L, Hgb 11.3 L, Hct 33.7 L, MCV 96.7, MCH 32.5 H, MCHC 33.6, RDW 16.1, Plt Count 193 D, MPV 9.0, Neut % (Auto) 77.7, Lymph % (Auto) 12.9, [place] % (Auto) 7.1, Eos % (Auto) 1.8, Baso % (Auto) 0.4, Neut # (Auto) 13.5 H, Lymph # (Auto) 2.2, [place] # (Auto) 1.2 H, Eos # (Auto) 0.3, Baso # (Auto) 0.1, Total Counted 100, Neutrophils % (Manual) 71, Band Neutrophils % 2.0, Lymphocytes % (Manual) 4 L, Monocytes % (Manual) 17 H, Eosinophils % (Manual) 6 H, Platelet Estimate Normal, RBC Morphology Normal, Sodium 131 L, Potassium 4.2, Chloride 103, Carbon Dioxide 18 L, Anion Gap 14.2, BUN 37 H, Creatinine 1.60 H, Estimated Creat Clear 26, Estimated GFR 32 L, Est GFR ( Amer) 39 L, Glucose 168 H, Calcium 8.5 I & O for Labs for Last 24 Hours: Intake & Output 03/12/23 03/13/23 03/14/23 03/15/23 11:59 11:59 11:59 11:59 Intake Total 3626.008 / 3626.008 1620 / 1620 1375 / 1375 1680 / 1680 Output Total 300 / 300 400 / 400 1050 / 1050 1350 / 1350 Balance 3326.008 / 3326.008 1220 / 1220 325 / 325 330 / 330 Weight 232 lb 9 oz 232 lb 9.015 oz 232 lb 9.015 oz 238 lb 14.4 oz Microbiology Reports for the Last 24 Hours: Microbiology 03/10/23 02:30 Urine,Clean Catch Urine Culture - Final 03/09/23 23:41 Blood Blood Culture - Final 03/09/23 23:35 Blood Blood Culture - Final Constitutional: Present mild distress (Dyspneic at rest) Respiratory: Present accessory muscle use, decreased breath sounds (right base), wheezes and able to speak in complete sentences Comment:: Dyspneic with with speaking Cardiac: Present Irregularly Regular Comment:: Appears atrial fibrillation with rapid ventricular response. GI: Present soft and normal bowel sounds; Absent distention or tenderness Extremities: Present edema (Bilateral lower extremities) Neuro: Present alert and oriented x 3 Comment:: Conversant Assessment and Plan *Assessment and plan (1) Hypovolemic shock: Status: Acute Category: Medical Code(s): R57.1 - Hypovolemic shock (2) LORE (acute kidney injury): Status: Acute Category: Medical Code(s): N17.9 - Acute kidney failure, unspecified (3) Atrial fibrillation with rapid ventricular response: Status: Acute Category: Medical Code(s): I48.91 - Unspecified atrial fibrillation (4) HFrEF (heart failure with reduced ejection fraction): Status: Acute Category: Medical Code(s): I50.20 - Unspecified systolic (congestive) heart failure (5) Vomiting: Status: Acute Qualifiers: Nausea presence: with nausea Vomiting type: unspecified Qualified Code(s): R11.2 - Nausea with vomiting, unspecified Category: Medical Code(s): R11.10 - Vomiting, unspecified (6) Non morbid obesity: Status: Acute Category: Medical Code(s): E66.9 - Obesity, unspecified (7) Elevated bilirubin: Status: Acute Category: Medical Code(s): R17 - Unspecified jaundice (8) Elevated brain natriuretic peptide (BNP) level: Status: Acute Category: Medical Code(s): R79.89 - Other specified abnormal findings of blood chemistry (9) Hyponatremia: Status: Acute Category: Medical Code(s): E87.1 - Hypo-osmolality and hyponatremia (10) Sepsis: Status: Acute Qualifiers: Acute renal failure type: unspecified Sepsis acute organ dysfunction status: with acute organ dysfunction Sepsis type: sepsis due to unspecified organism Severe sepsis acute organ dysfunction type: acute renal failure Sev ere sepsis shock status: without septic shock Qualified Code(s): A41.9 - Sepsis, unspecified organism; R65.20 - Severe sepsis without septic shock; N17.9 - Acute kidney failure, unspecified Category: Medical Code(s): A41.9 - Sepsis, unspecified organism (11) Acute dehydration: Status: Acute Category: Medical Code(s): E86.0 - Dehydration (12) Acute hyperglycemia: Status: Acute Category: Medical Code(s): R73.9 - Hyperglycemia, unspecified (13) Elevated lactic acid level: Status: Acute Category: Medical Code(s): R79.89 - Other specified abnormal findings of blood chemistry (14) Acute hyponatremia: Status: Acute Category: Medical Code(s): E87.1 - Hypo-osmolality and hyponatremia (15) Major depressive disorder: Status: Acute Qualifiers: Active/Remission status: remission status unspecified Major depression recurrence: unspecified whether recurrent Qualified Code(s): F32.9 - Major depressive disorder, single episode, unspecified Category: Medical Code(s): F32.9 - Major depressive disorder, single episode, unspecified (16) Bacteremia due to Escherichia coli: Status: Acute Category: Medical Code(s): R78.81 - Bacteremia; B96.20 - Unspecified Escherichia coli [E. coli] as the cause of diseases classified elsewhere (17) E. coli UTI: Status: Acute Category: Medical Code(s): N39.0 - Urinary tract infection, site not specified; B96.20 - Unspecified Escherichia coli [E. coli] as the cause of diseases classified elsewhere Plan Care management is looking for a bed for rehab placement. Will give a dose of 20 mg of IV Lasix today and will also restart on spironolactone today. Will order oral Lasix starting tomorrow. Will also started on neb treatments Dr. Ortiz entry - Saw patient, agree with above note.
[2023-03-15] MEDS: FUROSEMIDE 20 MG/2 ML VIAL IV (09:00)
[2023-03-15] MEDS: SPIRONOLACTONE 25MG TABLET 50 MG PO (09:00)
[2023-03-15] MEDS: IPRATROPIUM/ALBUTEROL 3 ML NEB IH ×3 (10:35→19:54)
[2023-03-15 11:12] LABS: POC Glucose,Bedside 266 (70-110)
[2023-03-15] MEDS: CEFTRIAXONE 1 GM 1 GM in 0.9 % SODIUM CHLORIDE 50 ML IV (12:13)
[2023-03-15] MEDS: RIVAROXABAN 15MG TABLET 15 MG PO (16:00)
[2023-03-15 16:21] LABS: POC Glucose,Bedside 235 (70-110)
[2023-03-15] MEDS: ACETAMINOPHEN 500MG TAB 1000 MG PO (19:46)
--- NOTE | 2023-03-15 20:10 | PC.NURSE ---
Called by game warden at 1999 about pt HR in 130s, checked on pt, she had gotten up to sit on the side of the bed, rechecked HR 93.
[2023-03-15 20:22] LABS: POC Glucose,Bedside 290 (70-110)
[2023-03-16] VITALS (11 sets, daily range): BP systolic 70–138; BP diastolic 47–74; PULSE 56–158; RESP 18–22; TEMP 36.4–37; O2SAT 93–100; BMI 43.7
--- NOTE | 2023-03-16 00:19 | PC.NURSE ---
Tech notified this nurse of blood pressure 72/46, rechecked manually 72/48. Notified MD Ortiz, hold cardizem 0300 dose, no other orders received. Continuing to monitor BP.
--- NOTE | 2023-03-16 00:31 | PC.NURSE ---
Recheck pt BP 94/53 at this time. HR 73.
--- NOTE | 2023-03-16 04:42 | PC.NURSE ---
Pt A&Ox4. Pt has complained of headache 1 time, treated per apr. Pt gets up to the bedside commode. Audible wheezes has subsided after breathing treatment, expiratory wheezing in bilateral lower lobes noted. Pt has remained on room air, O2 sat >90%. Pt HR climbs to 110-130s for brief second when moving positions but does not sustain. Pt HR has been in the 60-70s at rest. Pt systolic BP remains in upper 90s after midnight, diastolic in the 50s, MAP >65. Pt has had no other complaints this shift. Pt has rested on and off through the night.
[2023-03-16] MEDS: humaLOG 100 UNITS/ML 3ML VIAL (SSI) SQ ×4 (06:08→21:10)
[2023-03-16] MEDS: LEVOTHYROXINE 175MCG (0.175MG) TAB 175 MCG PO (06:09)
[2023-03-16 06:10] LABS: POC Glucose,Bedside 214 (70-110)
[2023-03-16] MEDS: IPRATROPIUM/ALBUTEROL 3 ML NEB IH ×4 (06:15→19:02)
[2023-03-16 07:07] LABS: Anion Gap 11.4 mEq/L (5-15); Blood Urea Nitrogen 39 mg/dl (7-17); Calcium 8.5 mg/dl (8.4-10.2); Carbon Dioxide 23 mmol/L (22.0-30.0); Chloride 102 mmol/L (98-107); Creatinine Clearance Estimated 26 mL/min (50-200); Estimated Glomerular Filt Rate 32 ml/min (>60); GFR (African American) 39 ML/MIN (>60); Glucose 215 mg/dl (74-100); Potassium 4.4 mmoL/L (3.5-5.1); Sodium 132 mmol/L (136-145)
[2023-03-16 07:11] LABS: Basophils # 0.1 K/mm3 (0-0.2); Basophils % 0.5 % (0.1-2.0); Eosinophils # 0.3 K/mm3 (0.0-0.4); Eosinophils % 1.6 % (0.1-12.0); Hematocrit 32.1 % (37.0-47.0); Hemoglobin 10.7 g/dL (12.2-16.2); Lymphocytes # 2.4 K/mm3 (0.7-4.5); Lymphocytes % 14.1 % (10-50); Mean Corpuscular HGB Conc 33.4 g/dL (31.8-35.4); Mean Corpuscular Hemoglobin 32.3 pg (27.0-31.2); Mean Corpuscular Volume 96.8 fl (81-99); Mean Platelet Volume 9.3 fl (7.4-10.4); Monocytes # 0.8 K/mm3 (0.1-1.0); Monocytes % 4.8 % (1.7-9.3); Neutrophils # 13.2 K/mm3 (1.8-7.8); Platelet Count 230 K/mm3 (142-424); Red Blood Count 3.32 M/mm3 (4.20-5.40); Red Cell Distribution Width 16.3 % (11.5-17.5); White Blood Count 16.7 K/mm3 (4.8-10.8)
[2023-03-16 07:20] LABS: MANUAL DIFFERENTIAL MANUAL DIFFERENTIAL (MANUAL DIFF)
[2023-03-16] MEDS: POTASSIUM CHLORIDE 10MEQ CAPSULE.ER 10 MEQ PO (08:13)
[2023-03-16] MEDS: FUROSEMIDE 20MG TABLET 20 MG PO (08:14)
[2023-03-16] MEDS: SPIRONOLACTONE 25MG TABLET 50 MG PO (08:14)
[2023-03-16] MEDS: METOPROLOL TARTRATE 50MG TABLET 50 MG PO (08:14)
[2023-03-16] MEDS: INSULIN GLARGINE 100 UNITS/ML 3ML FLEXPEN 20 UNIT SQ (08:15)
--- NOTE | 2023-03-16 08:50 | P.PN_ITS ---
Subjective *Date: 03/16/23 *Time: 08:50 Interval history: Patient with no new complaints today, BP noted to be low overnight, HR elevated with exertion. Medical Exam Vital signs and Labs for Last 24 Hours: Vital Signs Temp Pulse Pulse Resp BP Pulse Ox O2 Del Method 03/16/23 08:00 98.6 F 158 H 22 138/59 L 100 Room Air 03/16/23 06:15 56 L 03/16/23 06:15 59 L 03/16/23 06:15 96 Room Air 03/16/23 06:51 Room Air 03/16/23 05:00 Room Air 03/16/23 04:00 97.7 F 65 20 93/57 L 99 Room Air 03/16/23 04:00 110 H 03/16/23 03:00 Room Air 03/16/23 00:30 73 94/53 L 03/16/23 00:00 80 03/16/23 00:53 Room Air 03/16/23 00:00 97.9 F 78 18 70/47 L 100 Room Air 03/15/23 20:00 120 H 03/15/23 23:00 Room Air 03/15/23 21:00 Room Air 03/15/23 20:00 Room Air 03/15/23 20:00 97.8 F 129 H 16 128/85 100 Room Air 03/15/23 20:00 44 L 03/15/23 20:00 56 L 03/15/23 18:16 Room Air 03/15/23 16:00 90 03/15/23 16:29 Room Air 03/15/23 13:55 78 03/15/23 13:55 77 03/15/23 15:38 98.1 F 105 H 20 119/71 99 Room Air 03/15/23 12:00 90 03/15/23 13:13 Room Air 03/15/23 12:21 Room Air 03/15/23 11:27 97.9 F 71 16 101/55 L 95 Room Air 03/15/23 10:52 Room Air 03/15/23 10:35 58 L 03/15/23 10:35 94 L Room Air Intake and Output 03/15/23 03/16/23 03/16/23 23:59 07:59 15:59 Intake Total 410 / 1620 690 / 690 Output Total 900 / 4500 1999 Balance -490 / -2880 -2000 / -1310 690 / -1310 Intake: Intake, Oral Amount 410 / 1570 690 / 690 Output: Output, Urine Amount 900 / 4500 1999 Other: Number of Unmeasured Voids 1 Number of Bowel Movements 1 Weight 231 lb 9.6 oz Patient Weight 03/16/23 23:59 Weight 231 lb 9.6 oz Laboratory Results - last 24 hr 03/15/23 11:02: POC Glucose 266 H 03/15/23 15:56: POC Glucose 235 H 03/15/23 20:14: POC Glucose 290 H 03/16/23 06:03: POC Glucose 214 H 03/16/23 06:47: WBC 16.7 H, RBC 3.32 L, Hgb 10.7 L, Hct 32.1 L, MCV 96.8, MCH 32.3 H, MCHC 33.4, RDW 16.3, Plt Count 230, MPV 9.3, Neut % (Auto) 79.0, Lymph % (Auto) 14.1, [place] % (Auto) 4.8, Eos % (Auto) 1.6, Baso % (Auto) 0.5, Neut # (Auto) 13.2 H, Lymph # (Auto) 2.4, [place] # (Auto) 0.8, Eos # (Auto) 0.3, Baso # (Auto) 0.1, Sodium 132 L, Potassium 4.4, Chloride 102, Carbon Dioxide 23, Anion Gap 11.4, BUN 39 H, Creatinine 1.60 H, Estimated Creat Clear 26, Estimated GFR 32 L, Est GFR ( Amer) 39 L, Glucose 215 H, Calcium 8.5 I & O for Labs for Last 24 Hours: Intake & Output 03/13/23 03/14/23 03/15/23 03/16/23 23:59 23:59 23:59 23:59 Intake Total 1180 / 1180 1525 / 1745 1620 / 1620 690 / 690 Output Total 0 / 1600 / 1600 4500 / 4500 1999 Balance 1180 / 1180 -75 / 145 -2880 / -2880 -1310 / -1310 Weight 232 lb 9.015 oz 232 lb 9.015 oz 238 lb 14.4 oz 231 lb 9.6 oz Constitutional: Present no acute distress Respiratory: Present diminished air movement (bases) and normal respiratory effort Cardiac: Present Irregularly Regular GI: Present normal bowel sounds; Absent tenderness Extremities: Present normal inspection, full ROM and edema (trace bilateral lower extremity) Skin: Present intact; Absent erythema Neuro: Present Grossly Intact and moves all extremities Assessment and Plan *Assessment and plan (1) Hypovolemic shock: Status: Acute Category: Medical Code(s): R57.1 - Hypovolemic shock (2) LORE (acute kidney injury): Status: Acute Category: Medical Code(s): N17.9 - Acute kidney failure, unspecified (3) Atrial fibrillation with rapid ventricular response: Status: Acute Category: Medical Code(s): I48.91 - Unspecified atrial fibrillation (4) HFrEF (heart failure with reduced ejection fraction): Status: Acute Category: Medical Code(s): I50.20 - Unspecified systolic (congestive) heart failure (5) Vomiting: Status: Acute Qualifiers: Vomiting type: unspecified Nausea presence: with nausea Qualified Code(s): R11.2 - Nausea with vomiting, unspecified Category: Medical Code(s): R11.10 - Vomiting, unspecified (6) Non morbid obesity: Status: Acute Category: Medical Code(s): E66.9 - Obesity, unspecified (7) Elevated bilirubin: Status: Acute Category: Medical Code(s): R17 - Unspecified jaundice (8) Elevated brain natriuretic peptide (BNP) level: Status: Acute Category: Medical Code(s): R79.89 - Other specified abnormal findings of blood chemistry (9) Hyponatremia: Status: Acute Category: Medical Code(s): E87.1 - Hypo-osmolality and hyponatremia (10) Sepsis: Status: Acute Qualifiers: Acute renal failure type: unspecified Sepsis acute organ dysfunction status: with acute organ dysfunction Sepsis type: sepsis due to unspecified organism Severe sepsis acute organ dysfunction type: acute renal failure Severe sepsis shock status: without septic shock Qualified Code(s): A41.9 - Sepsis, unspecified organism; R65.20 - Severe sepsis without septic shock; N17.9 - Acute kidney failure, unspecified Category: Medical Code(s): A41.9 - Sepsis, unspecified organism (11) Acute dehydration: Status: Acute Category: Medical Code(s): E86.0 - Dehydration (12) Acute hyperglycemia: Status: Acute Category: Medical Code(s): R73.9 - Hyperglycemia, unspecified (13) Elevated lactic acid level: Status: Acute Category: Medical Code(s): R79.89 - Other specified abnormal findings of blood chemistry (14) Acute hyponatremia: Status: Acute Category: Medical Code(s): E87.1 - Hypo-osmolality and hyponatremia (15) Major depressive disorder: Status: Acute Qualifiers: Major depression recurrence: unspecified whether recurrent Active/Remission status: remission status unspecified Qualified Code(s): F32.9 - Major depressive disorder, single episode, unspecified Category: Medical Code(s): F32.9 - Major depressive disorder, single episode, unspecified (16) Bacteremia due to Escherichia coli: Status: Acute Category: Medical Code(s): R78.81 - Bacteremia; B96.20 - Unspecified Escherichia coli [E. coli] as the cause of diseases classified elsewhere (17) E. coli UTI: Status: Acute Category: Medical Code(s): N39.0 - Urinary tract infection, site not specified; B96.20 - Unspecified Escherichia coli [E. coli] as the cause of diseases classified elsewhere Plan Patient has improved, Stop Diltiazem today and increase Metoprolol dose, awaiting insurance approval for post hospital care.
[2023-03-16 09:23] LABS: Lymphocytes % 17 % (10-50); Monocytes % 8 % (2-9); Neutrophils % 75 % (42-76); Platelet Estimate Normal; RBC Morphology Normal; Total Cells Counted 100
[2023-03-16] MEDS: METOPROLOL TARTRATE 50MG TABLET 75 MG PO ×2 (09:57→21:08)
[2023-03-16 10:58] LABS: POC Glucose,Bedside 333 (70-110)
[2023-03-16] MEDS: CEFTRIAXONE 1 GM 1 GM in 0.9 % SODIUM CHLORIDE 50 ML IV (12:34)
[2023-03-16] MEDS: RIVAROXABAN 15MG TABLET 15 MG PO (16:37)
[2023-03-16 20:42] LABS: POC Glucose,Bedside 308 (70-110)
[2023-03-16] MEDS: ACETAMINOPHEN 500MG TAB 1000 MG PO (22:40)
[2023-03-17] VITALS (12 sets, daily range): BP systolic 100–146; BP diastolic 60–78; PULSE 55–144; RESP 18–20; TEMP 36.4–36.6; O2SAT 97–100; BMI 35.5
--- NOTE | 2023-03-17 05:09 | PC.NURSE ---
Pt has complained of headache one time, treated per apr. Pt has had no other complaints through the night. Pt ambulates to the restroom independently. Pt HR jumps to 120s on exertion, but quickly recovers to 70s on rest. Call light in reach.
[2023-03-17 06:28] LABS: POC Glucose,Bedside 179 (70-110)
[2023-03-17] MEDS: LEVOTHYROXINE 175MCG (0.175MG) TAB 175 MCG PO (06:28)
[2023-03-17] MEDS: humaLOG 100 UNITS/ML 3ML VIAL (SSI) SQ ×4 (06:28→20:17)
[2023-03-17] MEDS: IPRATROPIUM/ALBUTEROL 3 ML NEB IH ×4 (06:35→20:13)
[2023-03-17] MEDS: FUROSEMIDE 20MG TABLET 20 MG PO (08:14)
[2023-03-17] MEDS: SPIRONOLACTONE 25MG TABLET 50 MG PO (08:14)
[2023-03-17] MEDS: POTASSIUM CHLORIDE 10MEQ CAPSULE.ER 10 MEQ PO (08:14)
[2023-03-17] MEDS: METOPROLOL TARTRATE 50MG TABLET 75 MG PO (08:15)
[2023-03-17] MEDS: INSULIN GLARGINE 100 UNITS/ML 3ML FLEXPEN 20 UNIT SQ (08:16)
[2023-03-17 08:24] LABS: POC Glucose,Bedside 254 (70-110)
--- NOTE | 2023-03-17 10:16 | P.PN_ITS ---
Subjective *Date: 03/17/23 *Time: 10:16 Interval history: Patient with no new complaints today. SHe would like to resume [facility] Medical Exam Vital signs and Labs for Last 24 Hours: Vital Signs Temp Pulse Pulse Resp BP Pulse Ox O2 Del Method 03/17/23 10:10 119 H 03/17/23 10:10 111 H 03/17/23 10:10 98 Room Air 03/17/23 08:00 120 H 03/17/23 09:00 Room Air 03/17/23 08:00 97.5 F L 144 H 18 108/69 L 100 Room Air 03/17/23 08:00 98 Room Air 03/17/23 06:35 71 03/17/23 06:35 89 03/17/23 06:35 98 Room Air 03/17/23 06:57 Room Air 03/17/23 04:00 97.7 F 71 18 122/61 98 Room Air 03/17/23 05:00 Room Air 03/17/23 04:00 100 H 03/17/23 02:44 Room Air 03/17/23 00:00 110 H 03/16/23 20:00 110 H 03/17/23 00:00 97.9 F 125 H 20 146/78 H 97 Room Air 03/17/23 00:43 Room Air 03/16/23 23:00 Room Air 03/16/23 21:00 Room Air 03/16/23 20:00 Room Air 03/16/23 20:00 97.6 F 92 H 18 113/74 93 L Room Air 03/16/23 18:35 Room Air 03/16/23 16:00 97.7 F 114 H 18 101/73 L 100 Room Air 03/16/23 16:50 Room Air 03/16/23 16:00 110 H 03/16/23 14:34 Room Air 03/16/23 14:01 71 03/16/23 14:01 73 03/16/23 14:01 97 Room Air 03/16/23 12:00 97.7 F 103 H 20 102/57 L 97 Room Air 03/16/23 12:36 Room Air 03/16/23 11:00 Room Air Intake and Output 03/16/23 03/17/23 03/17/23 23:59 07:59 15:59 Intake Total 240 / 2332 600 / 600 Output Total 1900 / 5250 1200 / 1900 700 / 1900 Balance -1660 / -2918 -1200 / -1300 -100 / -1300 Intake: Intake, Oral Amount 240 / 2332 600 / 600 Output: Output, Urine Amount 1900 / 5250 1200 / 1900 700 / 1900 Other: Number of Unmeasured Voids 0 0 0 Number of Bowel Movements 1 1 Weight 188 lb 3 oz Patient Weight 03/17/23 23:59 Weight 188 lb 3 oz Laboratory Results - last 24 hr 03/16/23 10:51: POC Glucose 333 H* 03/16/23 20:34: POC Glucose 308 H* 03/17/23 06:19: POC Glucose 179 H 03/17/23 08:12: POC Glucose 254 H I & O for Labs for Last 24 Hours: Intake & Output 03/14/23 03/15/23 03/16/23 03/17/23 23:59 23:59 23:59 23:59 Intake Total 1525 / 1745 1620 / 1620 2332 / 2332 600 / 600 Output Total 1600 / 1600 4500 / 4500 4650 / 5250 1900 / 1900 Balance -75 / 145 -2880 / -2880 -2318 / -2918 -1300 / -1300 Weight 232 lb 9.015 oz 238 lb 14.4 oz 231 lb 9.6 oz 188 lb 3 oz Constitutional: Present no acute distress Respiratory: Present diminished air movement (bases) and normal respiratory effort Cardiac: Present Irregularly Regular GI: Present normal bowel sounds; Absent tenderness Extremities: Present normal inspection, full ROM and edema (trace bilateral lower extremity) Skin: Present intact; Absent erythema Neuro: Present Grossly Intact and moves all extremities Assessment and Plan *Assessment and plan (1) Hypovolemic shock: Status: Acute Category: Medical Code(s): R57.1 - Hypovolemic shock (2) LORE (acute kidney injury): Status: Acute Category: Medical Code(s): N17.9 - Acute kidney failure, unspecified (3) Atrial fibrillation with rapid ventricular response: Status: Acute Category: Medical Code(s): I48.91 - Unspecified atrial fibrillation (4) HFrEF (heart failure with reduced ejection fraction): Status: Acute Category: Medical Code(s): I50.20 - Unspecified systolic (congestive) heart failure (5) Vomiting: Status: Acute Qualifiers: Vomiting type: unspecified Nausea presence: with nausea Qualified Code(s): R11.2 - Nausea with vomiting, unspecified Category: Medical Code(s): R11.10 - Vomiting, unspecified (6) Non morbid obesity: Status: Acute Category: Medical Code(s): E66.9 - Obesity, unspecified (7) Elevated bilirubin: Status: Acute Category: Medical Code(s): R17 - Unspecified jaundice (8) Elevated brain natriuretic peptide (BNP) level: Status: Acute Category: Medical Code(s): R79.89 - Other specified abnormal findings of blood chemistry (9) Hyponatremia: Status: Acute Category: Medical Code(s): E87.1 - Hypo-osmolality and hyponatremia (10) Sepsis: Status: Acute Qualifiers: Acute renal failure type: unspecified Sepsis acute organ dysfunction status: with acute organ dysfunction Sepsis type: sepsis due to unspecified organism Severe sepsis acute organ dysfunction type: acute renal failure Severe sepsis shock status: without septic shock Qualified Code(s): A41.9 - Sepsis, unspecified organism; R65.20 - Severe sepsis without septic shock; N17.9 - Acute kidney failure, unspecified Category: Medical Code(s): A41.9 - Sepsis, unspecified organism (11) Acute dehydration: Status: Acute Category: Medical Code(s): E86.0 - Dehydration (12) Acute hyperglycemia: Status: Acute Category: Medical Code(s): R73.9 - Hyperglycemia, unspecified (13) Elevated lactic acid level: Status: Acute Category: Medical Code(s): R79.89 - Other specified abnormal findings of blood chemistry (14) Acute hyponatremia: Status: Acute Category: Medical Code(s): E87.1 - Hypo-osmolality and hyponatremia (15) Major depressive disorder: Status: Acute Qualifiers: Major depression recurrence: unspecified whether recurrent Active/Remission status: remission status unspecified Qualified Code(s): F32.9 - Major depressive disorder, single episode, unspecified Category: Medical Code(s): F32.9 - Major depressive disorder, single episode, unspecified (16) Bacteremia due to Escherichia coli: Status: Acute Category: Medical Code(s): R78.81 - Bacteremia; B96.20 - Unspecified Escherichia coli [E. coli] as the cause of diseases classified elsewhere (17) E. coli UTI: Status: Acute Category: Medical Code(s): N39.0 - Urinary tract infection, site not specified; B96.20 - Unspecified Escherichia coli [E. coli] as the cause of diseases classified elsewhere Plan Plan to increase Metoprolol dose today, will inquire about Pristiq as it is not on the formulary and patient does not have any at home.
--- NOTE | 2023-03-17 10:16 | P.PN_ITS ---
Subjective *Date: 03/17/23 *Time: 10:16 Medical Exam Vital signs and Labs for Last 24 Hours: Vital Signs Temp Pulse Pulse Resp BP Pulse Ox O2 Del Method 03/17/23 10:10 119 H 03/17/23 10:10 111 H 03/17/23 10:10 98 Room Air 03/17/23 08:00 120 H 03/17/23 09:00 Room Air 03/17/23 08:00 97.5 F L 144 H 18 108/69 L 100 Room Air 03/17/23 08:00 98 Room Air 03/17/23 06:35 71 03/17/23 06:35 89 03/17/23 06:35 98 Room Air 03/17/23 06:57 Room Air 03/17/23 04:00 97.7 F 71 18 122/61 98 Room Air 03/17/23 05:00 Room Air 03/17/23 04:00 100 H 03/17/23 02:44 Room Air 03/17/23 00:00 110 H 03/16/23 20:00 110 H 03/17/23 00:00 97.9 F 125 H 20 146/78 H 97 Room Air 03/17/23 00:43 Room Air 03/16/23 23:00 Room Air 03/16/23 21:00 Room Air 03/16/23 20:00 Room Air 03/16/23 20:00 97.6 F 92 H 18 113/74 93 L Room Air 03/16/23 18:35 Room Air 03/16/23 16:00 97.7 F 114 H 18 101/73 L 100 Room Air 03/16/23 16:50 Room Air 03/16/23 16:00 110 H 03/16/23 14:34 Room Air 03/16/23 14:01 71 03/16/23 14:01 73 03/16/23 14:01 97 Room Air 03/16/23 12:00 97.7 F 103 H 20 102/57 L 97 Room Air 03/16/23 12:36 Room Air 03/16/23 11:00 Room Air Intake and Output 03/16/23 03/17/23 03/17/23 23:59 07:59 15:59 Intake Total 240 / 2332 600 / 600 Output Total 1900 / 5250 1200 / 1900 700 / 1900 Balance -1660 / -2918 -1200 / -1300 -100 / -1300 Intake: Intake, Oral Amount 240 / 2332 600 / 600 Output: Output, Urine Amount 1900 / 5250 1200 / 1900 700 / 1900 Other: Number of Unmeasured Voids 0 0 0 Number of Bowel Movements 1 1 Weight 85.36 kg Patient Weight 03/17/23 23:59 Weight 85.36 kg Laboratory Results - last 24 hr 03/16/23 10:51: POC Glucose 333 H* 03/16/23 20:34: POC Glucose 308 H* 03/17/23 06:19: POC Glucose 179 H 03/17/23 08:12: POC Glucose 254 H I & O for Labs for Last 24 Hours: Intake & Output 03/14/23 03/15/23 03/16/23 03/17/23 23:59 23:59 23:59 23:59 Intake Total 1525 / 1745 1620 / 1620 2332 / 2332 600 / 600 Output Total 1600 / 1600 4500 / 4500 4650 / 5250 1900 / 1900 Balance -75 / 145 -2880 / -2880 -2318 / -2918 -1300 / -1300 Weight 105.489 kg 108.363 kg 105.052 kg 85.36 kg The patient's infection will respond to the chosen ABx?: Yes Is the patient receiving the right drug, dose, and route?: Yes Could a more targeted ABx be ordered?: No (URINE AND BLD CX (+) FOR E. COLI SENS TO ROCEPHIN.)
[2023-03-17 11:59] LABS: POC Glucose,Bedside 327 (70-110)
[2023-03-17] MEDS: CEFTRIAXONE 1 GM 1 GM in 0.9 % SODIUM CHLORIDE 50 ML IV (13:26)
[2023-03-17] MEDS: RIVAROXABAN 15MG TABLET 15 MG PO (16:32)
[2023-03-17 19:36] LABS: POC Glucose,Bedside 313 (70-110)
[2023-03-17] MEDS: METOPROLOL TARTRATE 50MG TABLET 100 MG PO (20:17)
[2023-03-18] VITALS (9 sets, daily range): BP systolic 107–128; BP diastolic 55–76; PULSE 63–126; RESP 18–20; TEMP 36.5–37.1; O2SAT 93–99; BMI 43.1
--- NOTE | 2023-03-18 05:05 | PC.NURSE ---
Pt has rested through the night with no complaints. BLE edema present. Lung sounds clear. Pt ambulates with rolling walker independently to restroom.
[2023-03-18] MEDS: IPRATROPIUM/ALBUTEROL 3 ML NEB IH ×3 (05:40→12:43)
[2023-03-18 06:02] LABS: POC Glucose,Bedside 237 (70-110)
[2023-03-18] MEDS: humaLOG 100 UNITS/ML 3ML VIAL (SSI) SQ ×2 (06:23→12:24)
[2023-03-18] MEDS: LEVOTHYROXINE 175MCG (0.175MG) TAB 175 MCG PO (06:23)
[2023-03-18 06:52] LABS: Basophils # 0.1 K/mm3 (0-0.2); Basophils % 0.5 % (0.1-2.0); Eosinophils # 0.3 K/mm3 (0.0-0.4); Eosinophils % 2.2 % (0.1-12.0); Hemoglobin 10.3 g/dL (12.2-16.2); Lymphocytes # 2.2 K/mm3 (0.7-4.5); Lymphocytes % 16.2 % (10-50); Mean Corpuscular HGB Conc 33.1 g/dL (31.8-35.4); Mean Corpuscular Hemoglobin 32.4 pg (27.0-31.2); Mean Corpuscular Volume 97.8 fl (81-99); Mean Platelet Volume 8.9 fl (7.4-10.4); Monocytes # 0.6 K/mm3 (0.1-1.0); Monocytes % 4.2 % (1.7-9.3); Neutrophils # 10.5 K/mm3 (1.8-7.8); Neutrophils % 76.9 % (37.0-80.0); Platelet Count 293 K/mm3 (142-424); Red Blood Count 3.17 M/mm3 (4.20-5.40); Red Cell Distribution Width 16.2 % (11.5-17.5); White Blood Count 13.7 K/mm3 (4.8-10.8)
[2023-03-18 07:00] LABS: Blood Urea Nitrogen 41 mg/dl (7-17); Calcium 8.8 mg/dl (8.4-10.2); Carbon Dioxide 25 mmol/L (22.0-30.0); Chloride 99 mmol/L (98-107); Creatinine Clearance Estimated 26 mL/min (50-200); Estimated Glomerular Filt Rate 32 ml/min (>60); GFR (African American) 39 ML/MIN (>60); Glucose 234 mg/dl (74-100); Sodium 132 mmol/L (136-145)
--- NOTE | 2023-03-18 08:23 | P.PN_ITS ---
Subjective *Date: 03/18/23 *Time: 08:23 Interval history: Patient with no new complaints this morning. Medical Exam Vital signs and Labs for Last 24 Hours: Vital Signs Temp Pulse Pulse Resp BP Pulse Ox O2 Del Method 03/18/23 07:39 97.9 F 63 18 128/61 94 L Room Air 03/18/23 05:40 103 H 03/18/23 05:40 101 H 03/18/23 05:40 95 Room Air 03/18/23 06:37 Room Air 03/18/23 04:00 90 03/18/23 04:35 Room Air 03/18/23 04:00 98.8 F 108 H 20 109/55 L 99 03/18/23 02:35 Room Air 03/18/23 00:00 97.7 F 126 H 20 123/76 93 L Room Air 03/18/23 00:00 95 H 03/18/23 00:39 Room Air 03/17/23 22:47 Room Air 03/17/23 20:00 110 H 03/17/23 20:48 Room Air 03/17/23 20:00 Room Air 03/17/23 20:14 60 03/17/23 20:13 55 L 03/17/23 20:00 97.9 F 119 H 18 102/60 L 99 Room Air 03/17/23 17:00 Room Air 03/17/23 15:00 Room Air 03/17/23 16:00 120 H 03/17/23 12:00 110 H 03/17/23 15:57 97.6 F 134 H 20 109/77 L 97 Room Air 03/17/23 14:29 56 L 03/17/23 14:29 64 03/17/23 14:29 98 Room Air 03/17/23 13:00 Room Air 03/17/23 11:00 Room Air 03/17/23 12:00 97.7 F 128 H 20 100/68 L 100 Room Air 03/17/23 10:10 119 H 03/17/23 10:10 111 H 03/17/23 10:10 98 Room Air 03/17/23 09:00 Room Air Intake and Output 03/17/23 03/18/23 03/18/23 23:59 07:59 15:59 Intake Total 270 / 2160 240 / 240 Output Total 2000 / 5650 2300 / 2300 Balance -1730 / -3490 -2059 Intake: Intake, Oral Amount 270 / 2160 240 / 240 Output: Output, Urine Amount 1999 / 5650 2299 / 2299 Other: Number of Voids 3 Number of Unmeasured Voids 0 Number of Bowel Movements 2 Weight 228 lb 6 oz Patient Weight 03/18/23 23:59 Weight 228 lb 6 oz Laboratory Results - last 24 hr 03/17/23 08:12: POC Glucose 254 H 03/17/23 11:34: POC Glucose 327 H* 03/17/23 19:29: POC Glucose 313 H* 03/18/23 05:52: POC Glucose 237 H 03/18/23 06:31: WBC 13.7 H, RBC 3.17 L, Hgb 10.3 L, Hct 31.0 L, MCV 97.8, MCH 32.4 H, MCHC 33.1, RDW 16.2, Plt Count 293 D, MPV 8.9, Neut % (Auto) 76.9, Lymph % (Auto) 16.2, [place] % (Auto) 4.2, Eos % (Auto) 2.2, Baso % (Auto) 0.5, Neut # (Auto) 10.5 H, Lymph # (Auto) 2.2, [place] # (Auto) 0.6, Eos # (Auto) 0.3, Baso # (Auto) 0.1, Sodium 132 L, Potassium 5.0, Chloride 99, Carbon Dioxide 25, Anion Gap 13.0, BUN 41 H, Creatinine 1.60 H, Estimated Creat Clear 26, Estimated GFR 32 L, Est GFR ( Amer) 39 L, Glucose 234 H, Calcium 8.8 I & O for Labs for Last 24 Hours: Intake & Output 03/15/23 03/16/23 03/17/23 03/18/23 23:59 23:59 23:59 23:59 Intake Total 1620 / 1620 2332 / 2332 2160 / 2160 240 / 240 Output Total 4500 / 4500 4650 / 5250 5650 / 5650 230 / 0 Balance -2880 / -2880 -2318 / -2918 -3490 / -3490 -2059 Weight 238 lb 14.4 oz 231 lb 9.6 oz 188 lb 3 oz 228 lb 6 oz Constitutional: Present no acute distress Respiratory: Present diminished air movement (bases) and normal respiratory effort Cardiac: Present Irregularly Regular GI: Present normal bowel sounds; Absent tenderness Extremities: Present normal inspection, full ROM and edema (trace bilateral lower extremity) Skin: Present intact; Absent erythema Neuro: Present Grossly Intact and moves all extremities Assessment and Plan *Assessment and plan (1) Hypovolemic shock: Status: Acute Category: Medical Code(s): R57.1 - Hypovolemic shock (2) LORE (acute kidney injury): Status: Acute Category: Medical Code(s): N17.9 - Acute kidney failure, unspecified (3) Atrial fibrillation with rapid ventricular response: Status: Acute Category: Medical Code(s): I48.91 - Unspecified atrial fibrillation (4) HFrEF (heart failure with reduced ejection fraction): Status: Acute Category: Medical Code(s): I50.20 - Unspecified systolic (congestive) heart failure (5) Vomiting: Status: Acute Qualifiers: Vomiting type: unspecified Nausea presence: with nausea Qualified Code(s): R11.2 - Nausea with vomiting, unspecified Category: Medical Code(s): R11.10 - Vomiting, unspecified (6) Non morbid obesity: Status: Acute Category: Medical Code(s): E66.9 - Obesity, unspecified (7) Elevated bilirubin: Status: Acute Category: Medical Code(s): R17 - Unspecified jaundice (8) Elevated brain natriuretic peptide (BNP) level: Status: Acute Category: Medical Code(s): R79.89 - Other specified abnormal findings of blood chemistry (9) Hyponatremia: Status: Acute Category: Medical Code(s): E87.1 - Hypo-osmolality and hyponatremia (10) Sepsis: Status: Acute Qualifiers: Acute renal failure type: unspecified Sepsis acute organ dysfunction status: with acute organ dysfunction Sepsis type: sepsis due to unspecified organism Severe sepsis acute organ dysfunction type: acute renal failure Severe sepsis shock status: without septic shock Qualified Code(s): A41.9 - Sepsis, unspecified organism; R65.20 - Severe sepsis without septic shock; N17.9 - Acute kidney failure, unspecified Category: Medical Code(s): A41.9 - Sepsis, unspecified organism (11) Acute dehydration: Status: Acute Category: Medical Code(s): E86.0 - Dehydration (12) Acute hyperglycemia: Status: Acute Category: Medical Code(s): R73.9 - Hyperglycemia, unspecified (13) Elevated lactic acid level: Status: Acute Category: Medical Code(s): R79.89 - Other specified abnormal findings of blood chemistry (14) Acute hyponatremia: Status: Acute Category: Medical Code(s): E87.1 - Hypo-osmolality and hyponatremia (15) Major depressive disorder: Status: Acute Qualifiers: Major depression recurrence: unspecified whether recurrent Active/Remission status: remission status unspecified Qualified Code(s): F32.9 - Major depressive disorder, single episode, unspecified Category: Medical Code(s): F32.9 - Major depressive disorder, single episode, unspecified (16) Bacteremia due to Escherichia coli: Status: Acute Category: Medical Code(s): R78.81 - Bacteremia; B96.20 - Unspecified Escherichia coli [E. coli] as the cause of diseases classified elsewhere (17) E. coli UTI: Status: Acute Category: Medical Code(s): N39.0 - Urinary tract infection, site not specified; B96.20 - Unspecified Escherichia coli [E. coli] as the cause of diseases classified elsewhere Plan Continue current treatment, awaiting insurance approval for placement.
[2023-03-18] MEDS: METOPROLOL TARTRATE 50MG TABLET 100 MG PO (10:07)
[2023-03-18] MEDS: SPIRONOLACTONE 25MG TABLET 50 MG PO (10:07)
[2023-03-18] MEDS: FUROSEMIDE 20MG TABLET 20 MG PO (10:07)
[2023-03-18] MEDS: POTASSIUM CHLORIDE 10MEQ CAPSULE.ER 10 MEQ PO (10:07)
[2023-03-18] MEDS: INSULIN GLARGINE 100 UNITS/ML 3ML FLEXPEN 20 UNIT SQ (10:08)
[2023-03-18 12:29] LABS: POC Glucose,Bedside 245 (70-110)
[2023-03-18] MEDS: CEFTRIAXONE 1 GM 1 GM in 0.9 % SODIUM CHLORIDE 50 ML IV (12:53)
--- NOTE | 2023-03-18 13:05 | EXP.DC.SUM ---
General Admission date:: 03/10/23 Discharge date: 03/18/23 HPI HPI HPI: Ms. Dunn is a 67 year old female patient of [facility] with a fairly complicated medical history. She has a long standing history of CHF, A. fib and insulin dependent type 2 diabetes. She presented to [facility] ER last night complaining of a 3 day history of nausea and vomiting. She states the emesis consisted of ingested food and drink. She is unsure what caused her to be so sick. She denies diarrhea. She did have subjective fever and chills. Hospital Course Hospital Course Hospital Course: Patient was admitted with symptoms of vomiting, dehydration, and sepsis. She went into A. fib with RVR and required fluid resuscitation and rate control medications. Many of her CHF drugs had to be held. She improved with treatment. Blood cultures were all positive for E. coli that was sensitive to Rocephin so antibiotic changes were made. PICC line was placed without difficulty. Several of her medications were resume during her hospitalization. Plans were made to discharge to a senior care facility to complete one more week of IV antibiotics. Repeat blood cultures drawn in the day of discharge. Exam Data for Last 24 hours Vital signs and Labs for Last 24 Hours: Temp Pulse Resp BP Pulse Ox O2 Del Method O2 Flow Rate 97.8 F 80 19 107/62 L 99 Room Air 1 03/18/23 11:08 03/18/23 12:43 03/18/23 11:08 03/18/23 11:08 03/18/23 11:08 03/18/23 11:08 03/14/23 23:00 FiO2 50 03/12/23 14:00 Laboratory Results - last 24 hr 03/17/23 19:29: POC Glucose 313 H* 03/18/23 05:52: POC Glucose 237 H 03/18/23 06:31: WBC 13.7 H, RBC 3.17 L, Hgb 10.3 L, Hct 31.0 L, MCV 97.8, MCH 32.4 H, MCHC 33.1, RDW 16.2, Plt Count 293 D, MPV 8.9, Neut % (Auto) 76.9, Lymph % (Auto) 16.2, [place] % (Auto) 4.2, Eos % (Auto) 2.2, Baso % (Auto) 0.5, Neut # (Auto) 10.5 H, Lymph # (Auto) 2.2, [place] # (Auto) 0.6, Eos # (Auto) 0.3, Baso # (Auto) 0.1, Sodium 132 L, Potassium 5.0, Chloride 99, Carbon Dioxide 25, Anion Gap 13.0, BUN 41 H, Creatinine 1.60 H, Estimated Creat Clear 26, Estimated GFR 32 L, Est GFR ( Amer) 39 L, Glucose 234 H, Calcium 8.8 03/18/23 12:22: POC Glucose 245 H I & O for Last 24 hours: Intake & Output 03/15/23 03/16/23 03/17/23 03/18/23 23:59 23:59 23:59 23:59 Intake Total 1620 / 1620 2332 / 2332 2160 / 2160 950 / 950 Output Total 4500 / 4500 4650 / 5250 5650 / 5650 2300 / 2300 Balance -2880 / -2880 -2318 / -2918 -3490 / -3490 -1350 / -1350 Weight 238 lb 14.4 oz 231 lb 9.6 oz 188 lb 3 oz 228 lb 6 oz Constitutional Constitutional: no acute distress *Routine HEENT Exam Head: Present normocephalic Eye: Present EOMI and PERRL ENT: Present mucous membranes moist *Routine Neck Exam Neck: Present supple; Absent lymphadenopathy *Routine Respiratory Exam Respiratory: Present decreased breath sounds (both bases, otherwise clear); Absent respiratory distress *Routine Cardiovascular Exam Cardiovascular: Present irregular rhythm *Routine Abdominal Exam Abdominal: Present soft and normoactive bowel sounds; Absent tenderness *Routine Rectal Exam Patient deferred: visual exam and digital exam *Routine Exam Patient deferred: external exam and perineal exam *Routine Extremities Exam Extremities: Present edema (trace bilateral lower ext.); Absent cyanosis or clubbing *Routine Skin Exam Skin: Present warm; Absent rash *Routine Neurological Exam Neurological: Present alert and oriented X3 Results Data Completed and Pending Labs on day of discharge: Labs from last 24 hours 03/18/23 03/18/23 03/18/23 12:22 06:31 05:52 WBC 13.7 H RBC 3.17 L Hgb 10.3 L Hct 31.0 L MCV 97.8 MCH 32.4 H MCHC 33.1 RDW 16.2 Plt Count 293 D MPV 8.9 Neut % (Auto) 76.9 Lymph % (Auto) 16.2 [place] % (Auto) 4.2 Eos % (Auto) 2.2 Baso % (Auto) 0.5 Neut # (Auto) 10.5 H Lymph # (Auto) 2.2 [place] # (Auto) 0.6 Eos # (Auto) 0.3 Baso # (Auto) 0.1 Sodium 132 L Potassium 5.0 Chloride 99 Carbon Dioxide 25 Anion Gap 13.0 BUN 41 H Creatinine 1.60 H Estimated Creat Clear 26 Estimated GFR 32 L Est GFR ( Amer) 39 L Glucose 234 H POC Glucose 245 H 237 H Calcium 8.8 03/17/23 19:29 WBC RBC Hgb Hct MCV MCH MCHC RDW Plt Count MPV Neut % (Auto) Lymph % (Auto) [place] % (Auto) Eos % (Auto) Baso % (Auto) Neut # (Auto) Lymph # (Auto) [place] # (Auto) Eos # (Auto) Baso # (Auto) Sodium Potassium Chloride Carbon Dioxide Anion Gap BUN Creatinine Estimated Creat Clear Estimated GFR Est GFR ( Amer) Glucose POC Glucose 313 H* Calcium DS: Diagnosis Discharge Diagnosis (1) Hypovolemic shock: Status: Acute Code(s): R57.1 - Hypovolemic shock (2) LORE (acute kidney injury): Status: Acute Code(s): N17.9 - Acute kidney failure, unspecified (3) Atrial fibrillation with rapid ventricular response: Status: Acute Code(s): I48.91 - Unspecified atrial fibrillation (4) HFrEF (heart failure with reduced ejection fraction): Status: Acute Code(s): I50.20 - Unspecified systolic (congestive) heart failure (5) Vomiting: Status: Acute Code(s): R11.10 - Vomiting, unspecified Qualifiers: Nausea presence: with nausea Vomiting type: unspecified Qualified Code(s): R11.2 - Nausea with vomiting, unspecified (6) Non morbid obesity: Status: Acute Code(s): E66.9 - Obesity, unspecified (7) Elevated bilirubin: Status: Acute Code(s): R17 - Unspecified jaundice (8) Elevated brain natriuretic peptide (BNP) level: Status: Acute Code(s): R79.89 - Other specified abnormal findings of blood chemistry (9) Hyponatremia: Status: Acute Code(s): E87.1 - Hypo-osmolality and hyponatremia (10) Sepsis: Status: Acute Code(s): A41.9 - Sepsis, unspecified organism Qualifiers: Acute renal failure type: unspecified Sepsis acute organ dysfunction status: with acute organ dysfunction Sepsis type: sepsis due to unspecified organism Severe sepsis acute organ dysfunction type: acute renal failure Severe sepsis shock status: without septic shock Qualified Code(s): A41.9 - Sepsis, unspecified organism; R65.20 - Severe sepsis without septic shock; N17.9 - Acute kidney failure, unspecified (11) Acute dehydration: Status: Acute Code(s): E86.0 - Dehydration (12) Acute hyperglycemia: Status: Acute Code(s): R73.9 - Hyperglycemia, unspecified (13) Elevated lactic acid level: Status: Acute Code(s): R79.89 - Other specified abnormal findings of blood chemistry (14) Acute hyponatremia: Status: Acute Code(s): E87.1 - Hypo-osmolality and hyponatremia (15) Major depressive disorder: Status: Acute Code(s): F32.9 - Major depressive disorder, single episode, unspecified Qualifiers: Active/Remission status: remission status unspecified Major depression recurrence: unspecified whether recurrent Qualified Code(s): F32.9 - Major depressive disorder, single episode, unspecified (16) Bacteremia due to Escherichia coli: Status: Acute Code(s): R78.81 - Bacteremia; B96.20 - Unspecified Escherichia coli [E. coli] as the cause of diseases classified elsewhere (17) E. coli UTI: Status: Acute Code(s): N39.0 - Urinary tract infection, site not specified; B96.20 - Unspecified Escherichia coli [E. coli] as the cause of diseases classified elsewhere Meds Home Medications and Allergies Home Medications Medication Instructions Recorded Confirmed Type montelukast 10 mg tablet 10 mg PO HS Asthma 12/27/17 03/09/23 History cholecalciferol (vitamin D3) 50 2,000 unit PO DAILY Supplement 12/04/18 03/09/23 History mcg (2,000 unit) capsule fluticasone 250 mcg-salmeterol 50 1 inh inhalation BIDRT Copd 12/04/18 03/10/23 History mcg/dose blistr powdr for inhalation insulin degludec 200 unit/mL (3 33 unit SQ DAILY Diabetes 04/28/20 03/09/23 History mL) subcutaneous pen multivitamin 1 tab PO DAILY Supplement 04/28/20 03/10/23 History cyanocobalamin (vitamin B-12) 1,000 mcg PO DAILY Supplement 05/10/20 03/09/23 History 1,000 mcg tablet liraglutide 0.6 mg/0.1 mL (18 mg/3 1.8 mg SQ DAILY Diabetes 06/03/20 03/10/23 History mL) subcutaneous pen injector rosuvastatin 10 mg tablet 10 mg PO HS Cholesterol 01/20/23 03/09/23 History desvenlafaxine succinate 100 mg 100 mg PO DAILY Depression 03/10/23 03/09/23 History tablet,extended release 24 hr (Pristiq) furosemide 20 mg tablet 20 mg PO DAILY Fluid 03/10/23 03/09/23 History levothyroxine 175 mcg tablet 175 mcg PO DAILYDM THYROID 03/10/23 03/10/23 History metoprolol tartrate 100 mg tablet 100 mg PO BID High Blood Pressure 03/10/23 03/10/23 History sacubitril 24 mg-valsartan 26 mg 1 tab PO BID High Blood Pressure 03/10/23 03/09/23 History tablet (Entresto) Ceftriaxone 1 gm [Rocephin 1gm 100 mls/hr IV 1300 03/18/23 Rx ADV] 1 gm ipratropium 0.5 mg-albuterol 3 mg 3 ml inhalation QIDP PRN shortness 03/18/23 Rx (2.5 mg base)/3 mL nebulization of breath or wheezing #90 mL soln rivaroxaban 15 mg tablet (Xarelto) 15 mg PO QPMWITHMEAL #30 tabs 03/18/23 Rx New Prescriptions to Start Prescriptions: ipratropium-albuterol Mer [place],Marciano rivaroxaban [Xarelto] Mer [place],Marciano Ceftriaxone 1 gm [Rocephin 1gm ADV] 1 gm 0.9 % Sodium Chloride [Sod Chloride 0.9% 50mL Adv.] 50 ml 100 mls/hr IV 1300 Allergies Allergy/AdvReac Type Severity Reaction Status Date / Time naproxen [From ALEVE] Allergy Intermediate S-SWELLS-OR Verified 01/02/23 14:05 AL/THROAT oxytetracycline Allergy Intermediate Verified 01/02/23 14:05 [From TERRAMYCIN] tetracycline [TETRACYCLINE] Allergy Intermediate NA-SEDATION Verified 01/02/23 14:05 Discharge Plan Disposition Patient Disposition: Xfer SNF Condition: Fair Discharge Order Discharge Orders: Discharge Order (Routine); Ordered 03/18/23 Ordered By: Marciano Ortiz Follow up Plan Follow up with: Marciano Ortiz MD [Primary Care Provider] - 2 weeks Prescriptions/Medication Reconciliation: New Xarelto 15 mg Tablet 15 mg PO QPMWITHMEAL Qty: 30 0RF Ceftriaxone 1 gm [Rocephin 1gm ADV] 1 GM 0.9 % Sodium Chloride [Sod Chloride 0.9% 50mL Adv.] 50 ML 100 mls/hr IV 1300 Ordered By: Marciano Ortzi MD Last Taken: 03/18/23 12:53 100 mls/hr ipratropium-albuterol 0.5 mg-3 mg(2.5 mg base)/3 mL Solution For Nebulization 3 ml inhalation QIDP PRN (Reason: shortness of breath or wheezing) Qty: 90 0RF Continued liraglutide 0.6 mg/0.1 mL (18 mg/3 mL) pen injector 1.8 mg SQ DAILY Patient Comments: INJECT 1.8 MG SUBCUTANEOUSLY ONCE DAILY cholecalciferol (vitamin D3) 2,000 unit capsule 2,000 unit PO DAILY insulin degludec 200 unit/mL (3 mL) insulin pen 33 unit SQ DAILY multivitamin Tablet 1 tab PO DAILY montelukast 10 MG tablet 10 mg PO HS fluticasone propion-salmeterol 250-50 mcg/dose blister with device 1 inh INHALATION BIDRT cyanocobalamin (vitamin B-12) 1,000 MCG tablet 1,000 mcg PO DAILY rosuvastatin 10 mg tablet 10 mg PO HS metoprolol tartrate 100 mg tablet 100 mg PO BID levothyroxine 175 mcg tablet 175 mcg PO DAILYDM furosemide 20 mg tablet 20 mg PO DAILY desvenlafaxine succinate [Pristiq] 100 mg tablet extended release 24 hr 100 mg PO DAILY Entresto 24-26 mg tablet 1 tab PO BID Discontinued rivaroxaban 20 MG tablet 20 mg PO QPMWITHMEAL spironolactone [Aldactone] 50 mg tablet 50 mg PO DAILY Jardiance 10 mg tablet 10 mg PO DAILY Problem Reconciliation Problems Reviewed?: Yes Patient Discharge Instructions ACTIVITY: Continue current activity DIET: continue same diet Additional Instructions: Please check BMP and CBC on 03/20/23 Patient Instructions: Carbohydrate-Counting Diet, DI for Heart Failure, DI for Atrial Fibrillation, DI for Urinary Tract Infection (UTI), Peripherally Inserted Central Catheter Infections, DI for Sepsis -- Adult, DI for Acute Kidney Injury, DI for Bacteremia-Adult Providers Primary Care Provider: Marciano Ortiz Admit Provider: Torsten Amado Attending Provider: Marciano Ortiz
== END 2023-03-18 15:43 | DRG 871 ==
LOC: ER 23:39 → 2ND 03-10 00:19
PROVIDERS: Admitting Provider Internal Medicine Adolescent Medicine; Emergency Provider Emergency Medicine; PCP Family Medicine; Visit Provider Family Medicine
DX: A41.51 Sepsis due to Escherichia coli [E. coli] (principal); R57.1 Hypovolemic shock; N17.9 Acute kidney failure, unspecified; E87.1 Hypo-osmolality and hyponatremia; I50.20 Unspecified systolic (congestive) heart failure; R17 Unspecified jaundice; I42.8 Other cardiomyopathies; I48.21 Permanent atrial fibrillation; N39.0 Urinary tract infection, site not specified; A41.9 Sepsis, unspecified organism; R65.20 Severe sepsis without septic shock; E86.0 Dehydration; Z79.4 Long term (current) use of insulin; E66.9 Obesity, unspecified; Z68.39 Body mass index [BMI] 39.0-39.9, adult; F32.9 Major depressive disorder, single episode, unspecified; E03.9 Hypothyroidism, unspecified; M17.0 Bilateral primary osteoarthritis of knee; E11.65 Type 2 diabetes mellitus with hyperglycemia; I11.0 Hypertensive heart disease with heart failure; G89.29 Other chronic pain; M54.50 Low back pain, unspecified; J44.9 Chronic obstructive pulmonary disease, unspecified; Z87.891 Personal history of nicotine dependence; K52.9 Noninfective gastroenteritis and colitis, unspecified
CPT/HCPCS: 36569; 36415; 71045; 80048; 80053; 81001; 82009; 82803; 82962; 83605; 83690; 83735; 83880; 84100; 84484; 85007; 85025; 87040; 87086; 87636; 93005; 94640; 97110; 97163; 97166; 97530; 97535; 99291; C1751; J0696; J2405; J2543

== ENCOUNTER 2023-07-19 08:12 | Outpatient (CLI) | payer MEDICARE, SELFPAY ==
--- NOTE | 2023-07-19 08:21 | XR_ITS ---
FINAL REPORT CLINICAL HISTORY: POST MENOPAUSAL COMPARISON: None FINDINGS: Using L1-4, the bone mineral density of the spine is 1.368 g/cm2, corresponding to T-score of 2.9 which is within normal limits. Using the left hip, the bone mineral density of the femoral neck is 0.841 g/cm2, corresponding to a T-score of -0.1 which is within normal limits. Using the right hip, the bone mineral density of the femoral neck is 0.883 g/cm2, corresponding to a T-score of 0.3 which is within normal limits. FRAX not reported because all T-scores at or above -1.0. NOTE: T-score: Standard deviation compared with peak bone mass of young adult mean. *Following the recommendations of the International Society of Bone densitometry, classification of hip BMD is based on the lower of two T-scores; total hip or femoral neck. IMPRESSION: Normal bone mineral density of the lumbar spine and hips. Reviewed, Interpreted and Dictated by Samy Tirado III, MD Transcribed by Mary Amanda Authenticated and [facility]
--- NOTE | 2023-07-19 08:21 | MM_ITS ---
PROCEDURE INFORMATION: Exam: MG Bilateral Screening 3D Mammography Exam date and time: 07/19/2023 8:17 AM Age: 67 years old Clinical indication: Screening examination. A maternal aunt had breast cancer. TECHNIQUE: Imaging protocol: Bilateral Screening tomosynthesis and 2D mammography including computer-aided detection (CAD) when performed. COMPARISON: MG MM DIG SCREENING MAMM BI W/CAD 10/07/2019 8:26 AM FINDINGS: MAMMOGRAPHY: Breast composition: There are scattered areas of fibroglandular density. Mass: None. Architectural distortion: None. Calcifications: No suspicious calcifications. Asymmetric density: None. Skin thickening: None. Axillary adenopathy: None. IMPRESSION: No mammographic evidence of malignancy. Annual screening is recommended unless otherwise clinically indicated. ASSESSMENT: BI-RADS Category 1: Negative
== END 2023-07-19 23:59 | disposition home or self-care (01) ==
LOC: RAD 08:13
PROVIDERS: PCP Family Medicine; Visit Provider Physician Assistant
DX: Z12.31 Encounter for screening mammogram for malignant neoplasm of breast; Z78.0 Asymptomatic menopausal state
CPT/HCPCS: 77063; 77067; 77080

== ENCOUNTER 2023-08-15 14:00 | Outpatient (RCR) | payer MEDICARE, SELFPAY ==
--- NOTE | 2023-05-03 10:08 | HMH.PTOPEV ---
PT Outpatient Evaluation Rehab PT Outpatient Evaluation Start: 05/03/23 09:05 Freq: Status: Active Protocol: Document 05/03/23 09:06 MAGDALENA (Rec: 05/03/23 10:07 MAGDALENA [id number]) E-signed By Freddie Camarillo, PT Outpatient Therapy Subjective History Subjective History Patient is a 67 year old female presenting to outpatient PT with reports of B knee pain, generalized BLE weakness and poor balance. Symptoms of insidious onset starting approx 6 years ago that have progressively gotten worse over the past 6 months. No Specific mechanism of injury to report. R>L. No other comorbidities to report. New diagnosis of cancer in past 12 No months? Chief Complaint Pain,Stiff,Swelling,Gives out/ Unstable Symptom Type Ache,Dull Symptoms Relieved By Rest/Positioning,Prescription Meds Prior Functional Limitations None Current Functional Limitations Lifting,Housework,Standing, Walking,Stairs,Balance,Bending /Stooping Symptom Description Constant but Variable Level of pain today (0-10) 0 Pain scale - at its best (0-10) 0 Pain scale - at its worst (0-10) 9 Hip/Knee Eval Palpation Tenderness bilateral Knee Palpation Finding Tenderness Knee Palpation Overall Comment medial compartment 3/4 MMT Hip Flexion Strength Grade 4- Good- Hip Abduction Strength Grade 4- Good- Hip Adduction Strength Grade 4- Good- Hip External Rotation Strength Grade 3+ Fair+ Hip Internal Rotation Strength Grade 3+ Fair+ Knee Extension Strength Grade 4- Good- Knee Flexion Strength Grade 4- Good- ROM right Hip ROM Reason Not Measured Within Functional Limits Knee Extension Active Range of Motion ( -12 degrees) Knee Flexion Active Range of Motion ( 82 degrees) left Hip ROM Reason Not Measured Within Functional Limits Knee Extension Active Range of Motion ( -8 degrees) Knee Flexion Active Range of Motion ( 116 degrees) Special Tests Knee Anterior Nito Test Negative Left,Negative Right Knee Valgus Stress Test Negative Left,Negative Right Knee Varus Stress Test Negative Left Knee Moncho Test Positive Left,Positive Right Balance Eval Subjective Hx of Complaint Comment Generalized BLE weakness and poor balance. Prior Functional Limitations Prior Functional [place] Level None Current Functional Limitations Comment Standing/ambulatory activity Hx of Falls Hx Falls Yes Number in last 6 months 6 [place] Feet Together/Eyes open/Stable Surface pass Feet Together/Eyes Closed/Stable Surface pass Feet Together/Eyes open/Unstable Surface fail Feet Together/Eyes Closed/Unstable fail Surface Dynamic Gait Index Test Protocol Gait Level Surface Moderate Impairement Query Text: Instructions: Walk at your normal speed from here to the next jenn (20'). Grading: Jenn the lowest category that applies. Change in Gait Speed Moderate Impairment Query Text: Instructions: Begin walking at your normal pace (for 5'), when I tell you go , walk as fast as you can (for 5'). When I tell you slow , walk as slowly as you can (for 5'). Grading: Jenn the lowest category that applies. Gait with Horizontal Head Turns Moderate Impairment Query Text: Instructions: Begin walking at your normal pace. When I tell you to look right , keep walking straight, but turn you head to the right. Keep looking to the right unit I tell you look left , then keep walking straight and turn your head to the left. Keep your head to the left until I tell you look straight , then keep walking straight, but return you head to the center. Grading: Jenn the lowest category that applies. Gait with Vertical Head Turns Moderate Impairment Query Text: Instructions: Begin walking at your normal pace. When I tell you to look up , keep walking staight, but tip your head up. Keep looking up until I tell you to look down , then keep walking straight and tip your head down. Keep your head down until I tell you look straight , then keep walking straight, but return your head to the center. Grading: Jenn the lowest category that applies. Gait and Pivot Turn Mild Impairment Query Text: Instructions: Begin walking at your normal pace. When I tell you turn and stop , turn as quickly as you can to face the opposite direction and stop. Grading: Jenn the lowest category that applies. Step Over Obstacle Moderate Impairment Query Text: Instructions: Begin walking at your normal speed. When you come to the shoebox, step over it, not around it and keep walking. Grading: Jenn the lowest category that applies. Step Around Obstacles Mild Impairment Query Text: Instructions: Begin walking at normal speed. When you come to the first cone (about 6' away), walk around the right side of it. When you come to the second cone (6' past first cone), walk around it to the left. Grading: Jenn the lowest category that applies. Steps Moderate Impairment Query Text: Instructions: Walk up these stairs as you would at home. At the top, turn around and walk down. Grading: Jenn the lowest category that applies. 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 Goals Number of Weeks 4-6 Decreased Palpation Tenderness Yes: 1/4 Increase Range of Motion Yes: 0-120 B knees Increase Strength Yes: 4+/5 grossly B hip knee mm Increase Ability to Walk Yes: 30 min without difficulty Increase Ability to Stand Yes: Improve Ability For Household Care Yes Improve Ability to Climb Stairs Yes: 1 flight without difficulty Improve Balance Yes: 10 sec SLS B Decrease Subjective C/O Pain Yes: 2/10 at worst Outpatient Therapy Plan of Care Treatment Plan May Include Therapeutic Exercise Including Home Yes Exercise Program Manual Therapy Techniques Yes Neuromuscular Re-education Yes Therapeutic Activities to Return to Yes Previous Functional/Work Level Gait Training Yes ADL/Self Care Education Yes Mechanical Traction Yes Dry Needling Yes Thermal Modalities Yes Electrical Stimulation Yes Ultrasound/Phonophoresis Yes Iontophoresis Yes Orthotics/Bracing/Splinting Yes Vasopneumatic Compression Pump Yes Massage Yes Manual Lymphatic Drainage Yes Eval/Re-Eval Yes Aquatic Therapy Yes Frequency Times per week 2 Duration Number of Weeks 4-6 Addendums This patient is a candidate for social No or vocational rehab? Patient/Guardian verbally acknowledges Yes understanding of treatment program and consents to further treatment? Patient/Guardian verbally acknowledges Yes understanding of diagnosis, prognosis and goals for treatment? Eval Complexity PT Charges 87438 - Moderate Complexity Shoulder/Elbow Eval Shoulder Objective Measurements Elbow Objective Measurements PHYSICIAN CERTIFICATION: I certify the specified therapy services for Margi Dunn are required, authorized, and reviewed every 30 days.
--- NOTE | 2023-07-28 15:03 | HMH.RHREAS ---
Rehab Reassessment Rehab OP Re-assessment Start: 05/03/23 09:05 Freq: Status: Active Protocol: Document 07/28/23 14:52 MAGDALENA (Rec: 07/28/23 15:03 MAGDALENA Desktop) E-signed By Freddie Camarillo, PT Dynamic Gait Index Test Protocol Gait Level Surface Moderate Impairement Query Text: Instructions: Walk at your normal speed from here to the next jenn (20'). Grading: Jenn the lowest category that applies. Change in Gait Speed Moderate Impairment Query Text: Instructions: Begin walking at your normal pace (for 5'), when I tell you go , walk as fast as you can (for 5'). When I tell you slow , walk as slowly as you can (for 5'). Grading: Jenn the lowest category that applies. Gait with Horizontal Head Turns Moderate Impairment Query Text: Instructions: Begin walking at your normal pace. When I tell you to look right , keep walking straight, but turn you head to the right. Keep looking to the right unit I tell you look left , then keep walking straight and turn your head to the left. Keep your head to the left until I tell you look straight , then keep walking straight, but return you head to the center. Grading: Jenn the lowest category that applies. Gait with Vertical Head Turns Moderate Impairment Query Text: Instructions: Begin walking at your normal pace. When I tell you to look up , keep walking staight, but tip your head up. Keep looking up until I tell you to look down , then keep walking straight and tip your head down. Keep your head down until I tell you look straight , then keep walking straight, but return your head to the center. Grading: Jenn the lowest category that applies. Gait and Pivot Turn Moderate Impairment Query Text: Instructions: Begin walking at your normal pace. When I tell you turn and stop , turn as quickly as you can to face the opposite direction and stop. Grading: Jenn the lowest category that applies. Step Over Obstacle Mild Impairment Query Text: Instructions: Begin walking at your normal speed. When you come to the shoebox, step over it, not around it and keep walking. Grading: Jenn the lowest category that applies. Step Around Obstacles Mild Impairment Query Text: Instructions: Begin walking at normal speed. When you come to the first cone (about 6' away), walk around the right side of it. When you come to the second cone (6' past first cone), walk around it to the left. Grading: Jenn the lowest category that applies. Steps Moderate Impairment Query Text: Instructions: Walk up these stairs as you would at home. At the top, turn around and walk down. Grading: Jenn the lowest category that applies. Scoring Dynamic Gait Index Score 10 Lower Extremity Functional Index Activities Today, do you or would you have any difficulty at all with: a.Any of your usual work, housework or A little bit of difficulty school activities b. Your usual hobbies, recreational or Moderate difficulty sporting activities c. Getting into or out of the bath Moderate difficulty d. Walking between rooms Moderate difficulty e. Putting on your shoes or socks No difficulty f. Squatting Extreme difficulty or unable to perform activity g. Lifting an object, like a bag of Moderate difficulty groceries from the floor h. Performing light activities around No difficulty your home i. Performing heavy activities around Extreme difficulty or unable your home to perform activity j. Getting into or out of a car Moderate difficulty k. Walking 2 blocks Moderate difficulty m. Going up or down 10 stairs (about 1 Quite a bit of difficulty flight of stairs) o. Sitting for 1 hour No difficulty p. Running on even ground Extreme difficulty or unable to perform activity q. Running on uneven ground Extreme difficulty or unable to perform activity r. Making sharp turns while running fast Extreme difficulty or unable to perform activity s. Hopping Extreme difficulty or unable to perform activity t. Rolling over in bed Moderate difficulty Rehab Re-assessment Subjective Subjective Patient reports 50% improvement since start of care. Assessment Progress Assessment Progressing as Expected Assessment Notes Patient would benefit from continuing with skilled PT interventions to address functional limitations with all standing/ambulatory activities. Patient goals met STG 2 Goals Not Met All others Revised Goals NA Plan Plan Continue with current POC. Frequency of Therapy 2x/week Duration of therapy 4 weeks Time and Billing Re-Eval Time 16 Re-Eval Billing Units 1 PHYSICIAN CERTIFICATION: I certify the specified therapy services for Margi Isiah Current are required, authorized, and reviewed every 30 days.
== END 2023-08-15 15:30 | disposition home or self-care (01) ==
LOC: PT 14:00
PROVIDERS: Visit Provider Physician Assistant
DX: R53.81 Other malaise (principal)
CPT/HCPCS: 97010; 97014; 97110; 97116; 97140; 97163; 97164; 97530; G0283

== ENCOUNTER 2023-08-29 00:16 | Emergency (ER) | payer MEDICARE, SELFPAY ==
[2023-08-29] VITALS (17 sets, daily range): BP systolic 88–119; BP diastolic 55–82; PULSE 86–131; RESP 16–22; TEMP 36.9; O2SAT 93–100; BMI 41.1
--- NOTE | 2023-08-29 00:12 | ECG_ITS ---
APPROVED REPORT Exam: Resting ECG HR:107 bpm ECG Measurements Heart Rate 107 AXES QRSd 145 QRS 165 QT 405 T 27 QTc 468 Conclusion ATRIAL FIBRILLATION WITH RAPID VENTRICULAR RESPONSE WITH ABERRANT CONDUCTION OR VENTRICULAR PREMATURE COMPLEXES RIGHT AXIS DEVIATION [QRS AXIS > 100] INTRAVENTRICULAR CONDUCTION DELAY [130+ ms QRS DURATION] ABNORMAL ECG Interventricular conduction delay appears most consistent with left bundle branch block, ECG similar to prior Electronically signed by : BRENDON ESPINAL, 08/29/2023 04:29:29
--- NOTE | 2023-08-29 00:17 | CT_ITS ---
PROCEDURE INFORMATION: Exam: CTA Chest With Contrast Exam date and time: 08/29/2023 1:03 AM Age: 67 years old Clinical indication: Shortness of breath; Additional info: Teodoro hancock TECHNIQUE: Imaging protocol: Computed tomographic angiography of the chest with contrast. Exam focused on the arteries. 3D rendering (Not supervised by radiologist): MIP and/or 3D reconstructed images were created by the technologist. Radiation optimization: All CT scans at this facility use at least one of these dose optimization techniques: automated exposure control; mA and/or kV adjustment per patient size (includes targeted exams where dose is matched to clinical indication); or iterative reconstruction. Contrast material: ISOVUE; Contrast volume: 75 ml; Contrast route: INTRAVENOUS (IV); COMPARISON: CT ANGIO CHEST PE PROTOCOL 08/29/2023 1:03 AM FINDINGS: Pulmonary arteries: Normal. No pulmonary emboli. Great vessels off aortic arch: Note is made of an aberrant right subclavian artery. Aorta: Unremarkable. No aortic aneurysm. No aortic dissection. Thyroid: Diminutive versus absent thyroid gland. Lungs: Bibasilar atelectasis. Pleural spaces: There are moderate right and small left pleural effusions. Heart: The heart is enlarged. Lymph nodes: There are a few mildly prominent superior mediastinal lymph nodes with short axis measuring up to 10 mm. Bones/joints: There are [id number] degenerative changes of the thoracic spine. Significant degenerative changes in lower cervical spine included on the study. Soft tissues: Unremarkable. IMPRESSION: 1. No pulmonary embolus. 2. Moderate right and small left pleural effusions. 3. Other nonemergent findings as noted.
--- NOTE | 2023-08-29 00:17 | CT_ITS ---
PROCEDURE INFORMATION: Exam: CT Abdomen And Pelvis With Contrast Exam date and time: 08/29/2023 1:03 AM Age: 67 years old Clinical indication: Abdominal pain; Additional info: N/v/d TECHNIQUE: Imaging protocol: Computed tomography of the abdomen and pelvis with contrast. Radiation optimization: All CT scans at this facility use at least one of these dose optimization techniques: automated exposure control; mA and/or kV adjustment per patient size (includes targeted exams where dose is matched to clinical indication); or iterative reconstruction. Contrast material: ISOVUE; Contrast volume: 75 ml; Contrast route: IV; COMPARISON: CR XR HIP RT 2-3V W/PELVIS 11/02/2020 4:55 PM FINDINGS: Lungs: The chest is reported separately. Diaphragm: A small hiatal hernia is present. Liver: Subtle nodular quality of the liver capsule. No focal hepatic lesion. Mild hepatomegaly. Gallbladder and biliary ducts: The gallbladder is absent. There is no biliary ductal dilation. Pancreas: Normal. No ductal dilation. Spleen: Normal. No splenomegaly. Adrenal glands: Normal. No mass. Kidneys and ureters: Normal. No hydronephrosis. Stomach and bowel: Unremarkable. No obstruction. No mucosal thickening. Appendix: No evidence of appendicitis. Intraperitoneal space: Small amount of free fluid is present within the pelvis. Vasculature: Unremarkable. No abdominal aortic aneurysm. Lymph nodes: Unremarkable. No enlarged lymph nodes. Urinary bladder: Unremarkable as visualized. Reproductive: Unremarkable as visualized. Bones/joints: Severe degenerative changes of the lumbar spine from L2 through L5. No acute fracture. Soft tissues: There is diffuse body wall edema. IMPRESSION: 1. There is no acute process evident within the abdomen or pelvis. 2. Small amount of free pelvic fluid and diffuse body wall edema. 3. Hepatomegaly. Subtle nodular quality of the liver capsule raising the possibility of cirrhosis. 4. Significant degenerative changes of the spine.
--- NOTE | 2023-08-29 00:17 | XR_ITS ---
PROCEDURE INFORMATION: Exam: XR Chest Exam date and time: 08/29/2023 12:52 AM Age: 67 years old Clinical indication: Shortness of breath; Additional info: Cp SOA vomiting TECHNIQUE: Imaging protocol: Radiologic exam of the chest. Views: 1 view. COMPARISON: CR XR CHEST PORTABLE 08/29/2023 12:52 AM FINDINGS: Lungs: Unremarkable. No consolidation. Pleural spaces: Unremarkable. No pleural effusion. No pneumothorax. Heart/Mediastinum: The heart is enlarged. Vasculature: Unremarkable. Bones/joints: Unremarkable. IMPRESSION: No acute findings.
[2023-08-29] MEDS: ONDANSETRON 4MG/2ML VIAL 4 MG IV (00:26)
[2023-08-29] MEDS: LACTATED RINGERS 1000ML 1,000 ML 999 ML IV (00:26)
[2023-08-29] MEDS: IPRATROPIUM/ALBUTEROL 3 ML NEB 9 ML IH (00:33)
[2023-08-29 00:34] LABS: Chloride 102 mmol/L (98-107); Potassium 3.8 mmoL/L (3.5-5.1); Sodium 137 mmol/L (136-145)
[2023-08-29 00:35] LABS: Basophils % 0.4 % (0.1-2.0); Eosinophils # 0.1 K/mm3 (0.0-0.4); Eosinophils % 0.5 % (0.1-12.0); Hematocrit 33.3 % (37.0-47.0); Lymphocytes % 18.2 % (10-50); Mean Corpuscular HGB Conc 30.1 g/dL (31.8-35.4); Mean Corpuscular Hemoglobin 27.8 pg (27.0-31.2); Mean Corpuscular Volume 92.7 fl (81-99); Mean Platelet Volume 8.7 fl (7.4-10.4); Monocytes # 0.8 K/mm3 (0.1-1.0); Monocytes % 7.6 % (1.7-9.3); Neutrophils % 73.4 % (37.0-80.0); Platelet Count 256 K/mm3 (142-424); Red Blood Count 3.59 M/mm3 (4.20-5.40); Red Cell Distribution Width 16.3 % (11.5-17.5); White Blood Count 10.8 K/mm3 (4.8-10.8)
[2023-08-29 00:36] LABS: Alanine Aminotransferase 17 U/L (12-78); Aspartate Amino Transferase 28 U/L (14-36); Blood Urea Nitrogen 20 mg/dl (7-17); Creatinine Clearance Estimated 52 mL/min (50-200); Estimated Glomerular Filt Rate 30 ml/min (>60); GFR (African American) 36 ML/MIN (>60); INR 1.21 (0.9-1.1); Prothrombin Time 13.3 seconds (10.1-12.5)
[2023-08-29 00:37] LABS: Albumin Level 3.9 g/dl (3.5-5.0); Alkaline Phosphatase 104 U/L (38-126); Anion Gap 11.8 mEq/L (5-15); Bilirubin,Total 0.6 mg/dl (0.2-1.3); Calcium 8.7 mg/dl (8.4-10.2); Carbon Dioxide 27 mmol/L (22.0-30.0); Globulin 3.8 g/dL (1.3-3.2); Glucose 112 mg/dl (74-100); Lipase 126 U/L (23-300); Total Protein,Serum 7.7 g/dl (6.3-8.2)
--- NOTE | 2023-08-29 00:37 | PC.NURSE ---
EMS IV infiltrated in left hand, removed, new IV placed in RAC #20, new set of blood vials sent to lab
[2023-08-29 00:47] LABS: NT Pro Brain Natriuretic Pep. 7060 pg/mL (0-125)
[2023-08-29 00:52] LABS: Lactic Acid 1.3 mmol/L (0.7-2.1)
[2023-08-29 00:53] LABS: Troponin I < 0.01 ng/ml (0.00-0.034)
--- NOTE | 2023-08-29 01:02 | ED_ITS ---
Discharge Plan Disposition Patient Disposition: Home, Self-Care Condition: Good Prescriptions Prescriptions: New ondansetron 4 mg tablet,disintegrating 4 mg PO Q6H PRN (Reason: nausea and vomiting) Qty: 10 0RF No Action liraglutide 0.6 mg/0.1 mL (18 mg/3 mL) pen injector 1.8 mg SQ DAILY Patient Comments: INJECT 1.8 MG SUBCUTANEOUSLY ONCE DAILY cholecalciferol (vitamin D3) 2,000 unit capsule 2,000 unit PO DAILY insulin degludec 200 unit/mL (3 mL) insulin pen 33 unit SQ DAILY multivitamin Tablet 1 tab PO DAILY desvenlafaxine succinate [Pristiq] 100 mg tablet extended release 24 hr 100 mg PO DAILY Qty: 30 2RF montelukast 10 MG tablet 10 mg PO HS fluticasone propion-salmeterol 250-50 mcg/dose blister with device 1 inh INHALATION BIDRT cyanocobalamin (vitamin B-12) 1,000 MCG tablet 1,000 mcg PO DAILY rosuvastatin 10 mg tablet 10 mg PO HS metoprolol tartrate 100 mg tablet 100 mg PO BID levothyroxine 175 mcg tablet 175 mcg PO DAILYDM furosemide 20 mg tablet 20 mg PO DAILY Entresto 24-26 mg tablet 1 tab PO BID Xarelto 15 mg Tablet 15 mg PO QPMWITHMEAL Qty: 30 0RF Ceftriaxone 1 gm [Rocephin 1gm ADV] 1 GM 0.9 % Sodium Chloride [Sod Chloride 0.9% 50mL Adv.] 50 ML 100 mls/hr IV 1300 Ordered By: Marciano Ortiz MD Last Taken: Unknown ipratropium-albuterol 0.5 mg-3 mg(2.5 mg base)/3 mL Solution For Nebulization 3 ml inhalation QIDP PRN (Reason: shortness of breath or wheezing) Qty: 90 0RF Referrals Follow up/Referrals: Katie Gonzalez MD [Physician] - See instructions (CHF, COPD, chronic cough with occasional post tussive emesis, pleural effusion ) Activity Restrictions/Add. Instructions Additional Instructions/Restrictions: You were evaluated in the ER. You are appropriate for discharge at this time. Continue taking all home medications as previously prescribed. Take the prescribed Zofran as directed if needed for nausea and vomiting. Consider taking a daily antihistamine like Zyrtec (cetirizine) to help with postnasal drip. Make an appoint with your primary care physician as soon as possible for reevaluation. Also make an appointment with Dr. Gonzalez with pulmonology to discuss your chronic uncontrolled cough. Please also make an appointment with Dr. Jones with cardiology for reevaluation of your fluid overload, swelling in the legs. Return to the ER with new, worsening, or otherwise concerning symptoms. Clinical Impressions Clinical Impression: Cough, A-fib, Post-tussive emesis Discharge ED Provider: Roger Winn General Adult HPI General Chief complaint: PAIN Stated complaint: cp, soa,n/v Time Seen by Provider: 08/29/23 00:19 Mode of Arrival: EMS Source of Information: Patient and EMS Limitations: No Limitations Description of Symptoms (Recalled from ER Triage Doc. by RN): Pt arrives via [facility] with original call out for chest pain, when EMS arrived pt is complaining of left knee pain. Pt states she has had URI/sinus congestion for 3 weeks, taken 2 rounds abx (Cefdinir) and still feels bad. Pt stated she believes her chest pain is from vomiting all day, and its made her feel SOA. Pt denies any abdominal pain or diarrhea. History of Present Illness HPI narrative: 67-year-old female presents to the ER via EMS for concerns of chest pain, vomiting, cough. Patient reports she has had upper respiratory symptoms for 3 weeks as well as 2 rounds of cefdinir and still feels unwell. She states she is having coughing that causes her to vomit. It has been nonbloody, nonbilious. Patient states she is having chest pain but believes this is from vomiting and coughing. She states this is all making her feel short of breath. She states she has A-fib and takes Xarelto daily among multiple other chronic medical conditions. She denies abdominal pain or diarrhea but does report having persistent nausea. Related Data Home Medications Medication Instructions Recorded Confirmed montelukast 10 mg tablet 10 mg PO HS Asthma 12/27/17 07/16/23 cholecalciferol (vitamin D3) 50 2,000 unit PO DAILY Supplement 12/04/18 07/16/23 mcg (2,000 unit) capsule fluticasone 250 mcg-salmeterol 50 1 inh inhalation BIDRT Copd 12/04/18 07/16/23 mcg/dose blistr powdr for inhalation insulin degludec 200 unit/mL (3 33 unit SQ DAILY Diabetes 04/28/20 07/16/23 mL) subcutaneous pen multivitamin 1 tab PO DAILY Supplement 04/28/20 07/16/23 cyanocobalamin (vitamin B-12) 1,000 mcg PO DAILY Supplement 05/10/20 07/16/23 1,000 mcg tablet liraglutide 0.6 mg/0.1 mL (18 mg/3 1.8 mg SQ DAILY Diabetes 06/03/20 07/16/23 mL) subcutaneous pen injector rosuvastatin 10 mg tablet 10 mg PO HS Cholesterol 01/20/23 07/16/23 furosemide 20 mg tablet 20 mg PO DAILY Fluid 03/10/23 07/16/23 levothyroxine 175 mcg tablet 175 mcg PO DAILYDM THYROID 03/10/23 07/16/23 metoprolol tartrate 100 mg tablet 100 mg PO BID High Blood Pressure 03/10/23 07/16/23 sacubitril 24 mg-valsartan 26 mg 1 tab PO BID High Blood Pressure 03/10/23 07/16/23 tablet (Entresto) Previous Rx's Medication Instructions Recorded Ceftriaxone 1 gm [Rocephin 1gm 100 mls/hr IV 1300 03/18/23 ADV] 1 gm ipratropium 0.5 mg-albuterol 3 mg 3 ml inhalation QIDP PRN shortness 03/18/23 (2.5 mg base)/3 mL nebulization of breath or wheezing #90 mL soln rivaroxaban 15 mg tablet (Xarelto) 15 mg PO QPMWITHMEAL #30 tabs 03/18/23 desvenlafaxine succinate 100 mg 100 mg PO DAILY Depression #30 tabs 05/15/23 tablet,extended release 24 hr (Pristiq) ondansetron 4 mg disintegrating 4 mg PO Q6H PRN nausea and 08/29/23 tablet vomiting #10 tabs Allergies Allergy/AdvReac Type Severity Reaction Status Date / Time naproxen [From ALEVE] Allergy Intermediate S-SWELLS-OR Verified 07/16/23 15:16 AL/THROAT oxytetracycline Allergy Intermediate Verified 07/16/23 15:16 [From TERRAMYCIN] tetracycline [TETRACYCLINE] Allergy Intermediate NA-SEDATION Verified 07/16/23 15:16 [facility] Disclaimer: The information contained in this section may have been updated after the patient was seen, as this information can be updated by other users. Medical History Allergic rhinitis Asthma-COPD overlap syndrome Atrial fibrillation BMI 39.0-39.9,adult CHF (congestive heart failure) Chronic low back pain COPD (chronic obstructive pulmonary disease) Esophageal stricture HFrEF (heart failure with reduced ejection fraction) HTN (hypertension) Hyperlipidemia Hypothyroid Irritable bowel syndrome with diarrhea Major depressive disorder Non morbid obesity Osteoarthritis of both knees Surgical History History of cholecystectomy History of right oophorectomy History of tubal ligation S/P dilatation of esophageal stricture Family History Family/Other A-fib Emphysema lung Breast cancer Social History Smoking Status: Never smoker years smoked: 15 how long ago did patient quit smokin quit status: quit date established second hand exposure: No alcohol intake: former counseling given: No substance use type: denies use counseling given: No current occupational status: disabled Travel in the last 8 weeks: Inside the [place] adopted: No caregiver/support person: No foster care: No household members: family and none housing: house lives independently: Yes marital status: number of children: 3 number of grandchildren: 11 education level: high school current occupational exposures/hazards: No caffeine: Yes physical activity: none working smoke detector in home: Yes fire extinguisher in home: No carbon monox detector in home: No firearms in home: No do you feel safe at home: Yes victim of physical abuse: No victim of emotional abuse: No victim of sexual abuse: No would you like helpful sources: No ROS Obtained: Yes All systems reviewed & no additional complaints except as documented Constitutional Constitutional: Denies chills, Denies fever(s), Denies headache(s) and Denies weakness Eyes Eyes: Denies change in vision ENT Ears, Nose, Mouth, and Throat: Denies dizziness, Denies headache(s), Denies nasal congestion and Denies sore throat Cardiovascular Cardiovascular: Reports chest pain, Denies dyspnea and Denies leg edema Respiratory Respiratory: Reports cough and Denies dyspnea Gastrointestinal Gastrointestingal: Reports nausea and vomiting; Denies constipation or diarrhea Genitourinary Female Genitourinary: Denies dysuria Musculoskeletal Musculoskeletal: Denies arthralgias, Denies myalgias, Denies numbness and Denies tingling Integumentary/Breasts Skin/Breast: Denies change in pigmentation Neurologic Neurologic: Denies dizziness, Denies headache(s), Denies numbness, Denies tingling and Denies weakness Physical Exam General General appearance: alert and in no apparent distress Head Head exam: atraumatic and normocephalic Eye Eye exam: Present PERRL and EOMI ENT ENT exam: Present mucous membranes moist Neck Neck exam: Present normal inspection and full ROM Chest Chest inspection: Present symmetric chest wall rise Respiratory Respiratory exam: Present normal lung sounds bilaterally; Absent respiratory distress, wheezes or stridor Cardiovascular Cardiovascular exam: Present regular rate and normal rhythm Abdominal Exam Abdominal exam: Present soft; Absent distention, tenderness, guarding or rebound Extremities Exam Extremities exam: Present full ROM and edema (2+ bilateral pitting edema) Neurological Exam Neurological exam: Present alert and oriented X3; Absent motor sensory deficit Psychiatric Psychiatric exam: Present normal affect and normal mood Skin Skin exam: Present warm and dry Medical Decision Making Mark Inquiry Pt receiving controlled substance: No Vital Signs: 08/29/23 00:16 08/29/23 00:25 08/29/23 00:33 Temperature 98.4 F Temperature Source Oral Pulse Rate 101 H Pulse Rate [Left] 108 H Respiratory Rate 22 Blood Pressure 90/62 L Blood Pressure [Right Arm] 119/65 Blood Pressure Mean Blood Pressure Mean [Right Arm] 83 Blood Pressure Source Manual Cuff/ Auscultation Blood Pressure Source [Right Arm] Automatic Cuff Blood Pressure Position Supine Blood Pressure Position [Right Arm] Sitting 02 Sat by Pulse Oximetry 98 Oxygen Delivery Method Room Air 08/29/23 00:33 08/29/23 00:37 08/29/23 01:24 Temperature Temperature Source Pulse Rate 95 H 101 H 104 H Pulse Rate [Left] Respiratory Rate Blood Pressure 105/82 L 109/74 L Blood Pressure [Right Arm] Blood Pressure Mean 87 83 Blood Pressure Mean [Right Arm] Blood Pressure Source Blood Pressure Source [Right Arm] Blood Pressure Position Blood Pressure Position [Right Arm] 02 Sat by Pulse Oximetry 100 99 Oxygen Delivery Method Room Air Room Air 08/29/23 01:30 08/29/23 02:00 08/29/23 02:31 Temperature Temperature Source Pulse Rate 102 H 90 95 H Pulse Rate [Left] Respiratory Rate Blood Pressure 116/77 92/68 L 88/58 L Blood Pressure [Right Arm] Blood Pressure Mean 82 76 68 Blood Pressure Mean [Right Arm] Blood Pressure Source Blood Pressure Source [Right Arm] Blood Pressure Position Blood Pressure Position [Right Arm] 02 Sat by Pulse Oximetry 99 96 96 Oxygen Delivery Method Room Air Room Air Room Air 08/29/23 02:38 08/29/23 02:44 08/29/23 02:58 Temperature Temperature Source Pulse Rate 100 H 105 H 99 H Pulse Rate [Left] Respiratory Rate 16 Blood Pressure 89/55 L 95/67 L 95/67 L Blood Pressure [Right Arm] Blood Pressure Mean 60 71 Blood Pressure Mean [Right Arm] Blood Pressure Source Automatic Cuff Blood Pressure Source [Right Arm] Blood Pressure Position Blood Pressure Position [Right Arm] 02 Sat by Pulse Oximetry 96 93 L 96 Oxygen Delivery Method Room Air Room Air Room Air 08/29/23 03:01 08/29/23 03:45 08/29/23 03:45 Temperature Temperature Source Pulse Rate 100 H 96 H 91 H Pulse Rate [Left] Respiratory Rate Blood Pressure 112/74 Blood Pressure [Right Arm] Blood Pressure Mean 86 Blood Pressure Mean [Right Arm] Blood Pressure Source Blood Pressure Source [Right Arm] Blood Pressure Position Blood Pressure Position [Right Arm] 02 Sat by Pulse Oximetry 94 L Oxygen Delivery Method Room Air Lab Data Lab Results 08/29/23 00:09: WBC 10.8, RBC 3.59 L, Hgb 10.0 L, Hct 33.3 L, MCV 92.7, MCH 27.8, MCHC 30.1 L, RDW 16.3, Plt Count 256, MPV 8.7, Neut % (Auto) 73.4, Lymph % (Auto) 18.2, [place] % (Auto) 7.6, Eos % (Auto) 0.5, Baso % (Auto) 0.4, Neut # (Auto) 8.0 H, Lymph # (Auto) 2.0, [place] # (Auto) 0.8, Eos # (Auto) 0.1, Baso # (Auto) 0.0, PT 13.3 H, INR 1.21 H, Sodium 137, Potassium 3.8, Chloride 102, Carbon Dioxide 27, Anion Gap 11.8, BUN 20 H, Creatinine 1.70 H, Estimated Creat Clear 52, Estimated GFR 30 L, Est GFR ( Amer) 36 L, Glucose 112 H, Calcium 8.7, Total Bilirubin 0.6, AST 28, ALT 17, Alkaline Phosphatase 104, Troponin I < 0.01, NT-Pro-B Natriuret Pep 7060 H, Total Protein 7.7, Albumin 3.9, Globulin 3.8 H, Albumin/Globulin Ratio 1.0 L, Lipase 126 08/29/23 00:33: Lactate 1.3 08/29/23 01:20: Urine Color Yellow, Urine Appearance Clear, Urine pH 6.0, Ur Specific [place] 1.015, Urine Protein Negative, Urine Glucose (UA) 2+, Urine Ketones Negative, Urine Blood Trace-i, Urine Nitrate Negative, Urine Bilirubin Negative, Urine Urobilinogen 0.2, Ur Leukocyte Esterase Trace, Urine RBC Occasional, Urine WBC 5-10, Ur Squamous Epith Cells 10-20, Ur Transition Epith Cell 3-5, Urine Bacteria Trace, Urine Mucus Trace 08/29/23 03:00: Troponin I < 0.01 08/29/23 00:09 08/29/23 00:09 Orders (Tests/Meds): ED MEDICATIONS Generic Name Dose Route Start Last Admin Trade Name Freq PRN Reason Stop Dose Admin Sodium Chloride 10 ml 08/29/23 01:14 08/29/23 01:15 Sodium Chloride 0.9% 10ml Syr (Rad Only) IV 09/28/23 01:13 10 ml NEEDED PRN Administration Maintain IV Site Discontinued Medications Generic Name Dose Route Start Last Admin Trade Name Freq PRN Reason Stop Dose Admin Albuterol Sulfate 20 mg 08/29/23 01:15 08/29/23 01:09 Albuterol 0.083% 2.5 Mg/3 Ml [facility] 08/29/23 01:16 Not Given ONCE ONE Albuterol/Ipratropium 9 ml 08/29/23 00:24 08/29/23 00:33 Ipratropium/Albuterol 3 Ml [facility] 08/29/23 00:25 9 ml ONCE ONE Administration Furosemide 60 mg 08/29/23 00:59 08/29/23 01:09 Furosemide 100mg/10ml Vial IV 08/29/23 01:00 Not Given ONCE ONE Lactated Ringer's 1,000 mls @ 999 mls/hr 08/29/23 00:19 08/29/23 00:26 Lactated Ringer's 1000 Ml Bag IV 08/29/23 01:19 999 mls/hr .Q1H1M ONE Administration Iopamidol 75 ml 08/29/23 01:14 08/29/23 01:15 Iopamidol-370 (76%);100ml Bottle IV 08/29/23 01:15 75 ml ONCE ONE Administration Lidocaine HCl 5 ml 08/29/23 03:39 08/29/23 03:45 Lidocaine 2% 5ml Pf Vial IH 08/29/23 03:40 5 ml ONCE ONE Administration Ondansetron HCl 4 mg 08/29/23 00:19 08/29/23 00:26 Ondansetron 4mg/2ml Vial IV 08/29/23 00:20 4 mg ONCE ONE Administration ORDERS Category Date Time Status CT abdomen pelvis w con Stat Cat Scan 08/29/23 00:[address] angio chest PE protocol Stat Cat Scan 08/29/23 00:17 Completed CXR --portable [XR chest portable] Stat Exams 08/29/23 00:17 Completed BNP [NT Pro Brain Natriuretic Pep.] Stat Lab 08/29/23 00:09 Completed CBC w/Auto Diff [Complete Blood Count Auto Diff] Stat Lab 08/29/23 00:09 Completed CMP [Comprehensive Metabolic Panel] Stat Lab 08/29/23 00:09 Completed Lactic Acid Stat Lab 08/29/23 00:33 Completed Lipase Stat Lab 08/29/23 00:09 Completed PT INR [Prothrombin Time INR] Stat Lab 08/29/23 00:09 Completed Trop I [Troponin I] Stat Lab 08/29/23 00:09 Completed Troponin I Q3H Lab 08/29/23 03:00 Completed Troponin I Q3H Lab 08/29/23 06:30 Ordered Urinalysis and Microscopic Stat Lab 08/29/23 01:20 Completed Medical Decision Narrative: In summary, this 67-year-old female presents to the emergency department today with cough, chest pain, nausea, vomiting. On initial evaluation patient hemodynamically stable, irregular cardiac rhythm consistent with her known underlying A-fib, 2+ pitting edema, lungs clear to auscultation bilaterally, abdomen soft nontender, nondistended, nonacute. Differential diagnosis includes but is not limited to ACS, PE, fluid overload, pleural effusion, electrolyte abnormality, lactic acidosis, bowel obstruction, viral illness, posttussive emesis, UTI. Based on these concerns, I ordered broad workup including cardiac workup, serum labs, CT imaging of the chest and abdomen. Reviewed previous records which demonstrates she follows with cardiology for A-fib and has been seen by them for LORE, She does not follow with pulmonology. ECG personally interpreted demonstrates atrial fibrillation, rapid ventricular response, rate 107, normal QTc, right axis deviation, interventricular conduction delay most consistent with left bundle branch block, no STEMI, similar to prior EKG based on my review of previous records. Patient received IV fluids for treatment. Labs personally reviewed demonstrate no leukocytosis, mild anemia PT/INR slightly elevated but nonspecific and nonactionable at this time, CMP with kidney dysfunction similar to prior. UA negative for findings of infection. BNP elevated but similar to prior. XR personally interpreted demonstrates no acute lobar infiltrate. See radiology read for final interpretation CT imaging personally interpreted demonstrate no PE, mild to moderate right- sided pleural effusion present., Mild left-sided pleural effusion no acute intra-abdominal pathology. Patient was placed in the ED observation at 0200 for serial troponins to rule out evolving ID and to preclude unnecessary admission. This also allow me to monitor her respiratory status since she originally presented for cough causing posttussive emesis. She remained on the monitor and did not have any new abnormalities, and A-fib stayed stable, she remained hemodynamically stable, she has tolerated oral intake. She did develop a coughing fit that caused her to be nauseous but she did not have emesis. It was a dry, relatively nonproductive cough, and after she was unable to get under control herself, I administered a lidocaine nebulizer which significantly improved her symptoms. Repeat troponin was undetectably low. This is reassuring against evolving cardiac abnormality. She is comfortable and appropriate for discharge at this time. I did give her referral to pulmonology for outpatient follow-up as well as instructed her to follow back up with her primary care doctor and cardiology. Additionally Zofran was prescribed. Patient was given instructions on symptomatic management, follow up instructions, and return precautions for the emergency department. Patient indicated understanding and was discharged in stable condition. Total time in ED observation: 2 hours Critical Care Critical Care Time Critical Care Time: No
[2023-08-29] MEDS: IOPAMIDOL-370 (76%);100ML BOTTLE 75 ML IV (01:15)
[2023-08-29] MEDS: SODIUM CHLORIDE 0.9% 10ML SYR (RAD ONLY) 10 ML IV (01:15)
[2023-08-29 01:27] LABS: Microscopic, Urine URINE MICROSCOPIC (MICROSCOPIC)
[2023-08-29 01:29] LABS: Appearance,Urine CLEAR (Clear); Bilirubin,Urine Negative (Negative); Blood, Urine TRACE-I (Negative); Color,Urine YELLOW (Yellow); Glucose,Urine (UA) 2+ (Negative); Ketones,Urine Negative (Negative); Leukocyte Esterase,Urine TRACE (Negative); Nitrate,Urine Negative (Negative); Protein,Urine Negative (Negative); Specific Gravity, Urine 1.015 (1.005-1.030); Urobilinogen,Urine 0.2 EU/dl (0.2)
[2023-08-29 01:37] LABS: Bacteria,Urine Trace /lpf; Mucus,Urine Trace /lpf; RBC,Urine Occasional #/hpf (0-3)
--- NOTE | 2023-08-29 03:22 | PC.NURSE ---
Pt ambulated with walker and assist, pt was SOA with o2 sat @ 93% at the lowest. Pt is 97% sitting on side of bed at this time.
[2023-08-29] MEDS: LIDOCAINE 2% 5ML PF VIAL 5 ML IH (03:45)
[2023-08-29 04:03] LABS: Troponin I < 0.01 ng/ml (0.00-0.034)
== END 2023-08-29 07:02 | disposition home or self-care (01) ==
PROVIDERS: Emergency Provider Emergency Medicine
DX: I48.91 Unspecified atrial fibrillation (principal); R07.89 Other chest pain; R05.9 Cough, unspecified; R11.11 Vomiting without nausea; I45.89 Other specified conduction disorders; J90 Pleural effusion, not elsewhere classified; J44.9 Chronic obstructive pulmonary disease, unspecified; I11.0 Hypertensive heart disease with heart failure; I50.9 Heart failure, unspecified; E78.5 Hyperlipidemia, unspecified; E03.9 Hypothyroidism, unspecified; Z87.891 Personal history of nicotine dependence
CPT/HCPCS: 71045; 71275; 74177; 80053; 81001; 83605; 83690; 83880; 84484; 85025; 85610; 93005; 96361; 96374; 96375; 99285; J2405; J7120; J7620; Q9967

== ENCOUNTER 2023-11-15 08:34 | Emergency (ER) | payer MEDICARE, SELFPAY ==
[2023-11-15] VITALS (19 sets, daily range): BP systolic 89–125; BP diastolic 56–80; PULSE 68–105; RESP 19–25; TEMP 36.6–36.7; O2SAT 90–100; BMI 40.2
--- NOTE | 2023-11-15 08:38 | ECG_ITS ---
APPROVED REPORT Exam: Resting ECG HR:92 bpm ECG Measurements Heart Rate 92 AXES QRSd 152 QRS 159 QT 430 T 28 QTc 480 Conclusion ATRIAL FIBRILLATION RIGHT AXIS DEVIATION [QRS AXIS > 100] INTRAVENTRICULAR CONDUCTION DELAY [130+ ms QRS DURATION] ABNORMAL ECG Electronically signed by : VERONICA ESCALERA, 11/16/2023 21:15:17
--- NOTE | 2023-11-15 08:46 | XR_ITS ---
FINAL REPORT CLINICAL HISTORY: Shortness of breath COMPARISON: 08/29/2023 FINDINGS: Increasing density right lung base compatible with pleural effusion with pneumonia and/or atelectasis. The left lung is clear. There is no evidence of effusion or pneumothorax. Mediastinum is unremarkable. Heart size is mildly enlarged. IMPRESSION: Right pleural effusion with pneumonia and/or atelectasis. Reviewed, Interpreted and Dictated by Merari Pagan MD Transcribed by Marcelle Saunders Authenticated and [facility]
--- NOTE | 2023-11-15 08:49 | HMH.EDGENADL ---
Discharge Plan Disposition Patient Disposition: Xfer Short-Term Hosp Prescriptions Prescriptions: No Action liraglutide 0.6 mg/0.1 mL (18 mg/3 mL) pen injector 1.8 mg SQ DAILY Patient Comments: INJECT 1.8 MG SUBCUTANEOUSLY ONCE DAILY multivitamin Tablet 1 tab PO DAILY levothyroxine 137 mcg tablet 137 mcg PO DAILY Patient Comments: TAKE ONE TABLET BY MOUTH EVERY MORNING ON an EMPTY stomach potassium chloride 10 mEq capsule, extended release 10 meq PO BID Patient Comments: TAKE ONE CAPSULE BY MOUTH TWICE DAILY WITH FOOD metoprolol succinate 25 mg tablet extended release 24 hr 25 mg PO DAILY Patient Comments: TAKE ONE TABLET BY MOUTH EVERY DAY albuterol sulfate 90 mcg/actuation HFA aerosol inhaler 2 puff INHALATION QIDP PRN (Reason: Shortness Of Breath) Patient Comments: inhale 1 TO 2 puffs BY MOUTH FOUR TIMES DAILY NEEDED --SHAKE WELL BEFORE USE-- Xarelto 20 mg tablet 20 mg PO QPMWITHMEAL Patient Comments: TAKE ONE TABLET BY MOUTH EVERY DAY IN THE EVENING Jardiance 10 mg tablet 10 mg PO DAILY Patient Comments: TAKE ONE TABLET BY MOUTH EVERY DAY desvenlafaxine succinate [Pristiq] 100 mg tablet extended release 24 hr 100 mg PO DAILY montelukast 10 MG tablet 10 mg PO HS fluticasone propion-salmeterol 250-50 mcg/dose blister with device 1 inh INHALATION BID rosuvastatin 10 mg tablet 10 mg PO HS furosemide 20 mg tablet 20 mg PO DAILY Entresto 24-26 mg tablet 1 tab PO BID Referrals Follow up/Referrals: Provider,Referral, [Referring] - See instructions Clinical Impressions Clinical Impression: Acute GI bleeding, Acute on chronic anemia, Cirrhosis, Pleural effusion, Anasarca, Ascites Stand Alone Forms Stand Alone Forms: Transfer Record - ED Print Language Print Language: Burmese Discharge ED Provider: Aidee De Paz General Adult HPI <Jennifer Lockett DO - Last Filed: 11/15/23 16:01> General Chief complaint: Shortness of Breath/Dyspnea Stated complaint: SOA Time Seen by Provider: 11/15/23 08:41 History of Present Illness HPI narrative: This patient is a 68-year-old female with a history of atrial fibrillation on metoprolol and Xarelto, CHF on Lasix, hypertension, hyperlipidemia, hypothyroidism, COPD, and insulin-dependent diabetes presenting to the emergency department for evaluation with concern for multiple complaints. She states that since Saturday, she has had chills, sore throat, cough, congestion, shortness of breath, nausea, vomiting, and diarrhea. She states that she feels like her COPD and atrial fibrillation are bothering her. She has some mild chest wall pain with coughing, but otherwise no pain associated. No other concerns noted at this time. EMS arrived with the patient who noted she was hemodynamically stable en route with normal oxygen saturation on room air. They gave her 1 DuoNeb. Related Data Home Medications ?Medication ?Instructions ?Recorded ?Confirmed montelukast 10 mg tablet 10 mg PO HS 12/27/17 11/15/23 fluticasone 250 mcg-salmeterol 50 1 inh inhalation BID 12/04/18 11/15/23 mcg/dose blistr powdr for inhalation multivitamin 1 tab PO DAILY 04/28/20 11/15/23 liraglutide 0.6 mg/0.1 mL (18 mg/3 1.8 mg SQ DAILY 06/03/20 11/15/23 mL) subcutaneous pen injector rosuvastatin 10 mg tablet 10 mg PO HS 01/20/23 11/15/23 furosemide 20 mg tablet 20 mg PO DAILY 03/10/23 11/15/23 sacubitril 24 mg-valsartan 26 mg 1 tab PO BID 03/10/23 11/15/23 tablet (Entresto) albuterol sulfate 90 mcg/actuation 2 puff inhalation QIDP PRN 11/15/23 11/15/23 aerosol inhaler Shortness Of Breath desvenlafaxine succinate 100 mg 100 mg PO DAILY 11/15/23 11/15/23 tablet,extended release 24 hr (Pristiq) empagliflozin 10 mg tablet 10 mg PO DAILY 11/15/23 11/15/23 (Jardiance) levothyroxine 137 mcg tablet 137 mcg PO DAILY 11/15/23 11/15/23 metoprolol succinate 25 mg 25 mg PO DAILY 11/15/23 11/15/23 tablet,extended release 24 hr potassium chloride 10 mEq 10 meq PO BID 11/15/23 11/15/23 capsule,extended release rivaroxaban 20 mg tablet (Xarelto) 20 mg PO QPMWITHMEAL 11/15/23 11/15/23 Allergies Allergy/AdvReac Type Severity Reaction Status Date / Time naproxen [From ALEVE] Allergy Intermediate S-SWELLS-OR Verified 07/16/23 15:16 AL/THROAT oxytetracycline Allergy Intermediate Verified 07/16/23 15:16 [From TERRAMYCIN] tetracycline [TETRACYCLINE] Allergy Intermediate NA-SEDATION Verified 07/16/23 15:16 [facility] <Jennifer Lockett DO - Last Filed: 11/15/23 16:01> PFS Disclaimer: The information contained in this section may have been updated after the patient was seen, as this information can be updated by other users. Medical History BMI 39.0-39.9,adult Non morbid obesity Esophageal stricture Chronic low back pain Asthma-COPD overlap syndrome Osteoarthritis of both knees Irritable bowel syndrome with diarrhea HFrEF (heart failure with reduced ejection fraction) Major depressive disorder Allergic rhinitis CHF (congestive heart failure) Atrial fibrillation COPD (chronic obstructive pulmonary disease) Hypothyroid Hyperlipidemia HTN (hypertension) Surgical History S/P dilatation of esophageal stricture History of right oophorectomy History of cholecystectomy History of tubal ligation Family History Family/Other A-fib Emphysema lung Breast cancer Social History Smoking Status: Former smoker years smoked: 15 how long ago did patient quit smokin quit status: quit date established second hand exposure: No alcohol intake: former counseling given: No substance use type: denies use counseling given: No current occupational status: disabled Travel in the last 8 weeks: [facility] the [facility] adopted: No caregiver/support person: No foster care: No household members: family and none housing: house lives independently: Yes marital status: number of children: 3 number of grandchildren: 11 education level: high school current occupational exposures/hazards: No caffeine: Yes physical activity: none working smoke detector in home: Yes fire extinguisher in home: No carbon monox detector in home: No firearms in home: No do you feel safe at home: Yes victim of physical abuse: No victim of emotional abuse: No victim of sexual abuse: No would you like helpful sources: No <Jennifer Lockett DO - Last Filed: 11/15/23 16:01> ROS Obtained: Yes All systems reviewed & no additional complaints except as documented Physical Exam <Jennifer Nannette RaiDO christina - Last Filed: 11/15/23 16:01> General General appearance: alert and in no apparent distress Head Head exam: atraumatic and normocephalic Eye Eye exam: Present normal appearance, PERRL and EOMI ENT ENT exam: Present normal exam, normal oropharynx, mucous membranes moist and normal external ear exam Neck Neck exam: Present normal inspection, full ROM and trachea midline; Absent tenderness Chest Chest inspection: Present normal inspection and symmetric chest wall rise; Absent tenderness Respiratory Respiratory exam: Present normal lung sounds bilaterally; Absent respiratory distress, wheezes, stridor or accessory muscle use Cardiovascular Cardiovascular exam: Present regular rate and irregular rhythm Abdominal Exam Abdominal exam: Present soft; Absent distention, tenderness or guarding Extremities Exam Extremities exam: Present full ROM, normal capillary refill and edema (Symmetric bilateral lower extremity edema); Absent tenderness Back Exam Back exam: Present normal inspection and full ROM; Absent tenderness Neurological Exam Neurological exam: Present alert, oriented X3, CN II-XII intact and normal gait; Absent motor sensory deficit Psychiatric Psychiatric exam: Present normal affect and normal mood Skin Skin exam: Present warm and dry Medical Decision Making <Jennifer Nannette DO Levy - Last Filed: 11/15/23 16:01> Medical Records Medical records reviewed: Yes I reviewed the patient's medical records. Screening: Per USPSTF and CDC recommendations, given the prevalence of disease in our region, it is our hospital?s policy to screen for HIV and viral Hepatitis for all patients aged 18 and over and those with ongoing risk factors. Mark Inquiry Pt receiving controlled substance: No Vital Signs: 11/15/23 08:34 11/15/23 08:40 11/15/23 09:00 Temperature 97.8 F Temperature Source Oral Pulse Rate 99 H 86 Pulse Rate [Left Radial] 96 H Respiratory Rate 22 Blood Pressure 107/73 L 99/62 L Blood Pressure [Right Arm] 107/73 L Blood Pressure Mean 78 71 Blood Pressure Mean [Right Arm] 84 02 Sat by Pulse Oximetry 96 98 100 Oxygen Delivery Method Room Air Room Air Room Air 11/15/23 09:38 11/15/23 10:00 11/15/23 10:07 Temperature Temperature Source Pulse Rate 90 Pulse Rate [Left Radial] Respiratory Rate 25 H 25 H Blood Pressure 97/60 L 89/65 L 95/56 L Blood Pressure [Right Arm] Blood Pressure Mean 68 69 71 Blood Pressure Mean [Right Arm] 02 Sat by Pulse Oximetry 96 99 99 Oxygen Delivery Method 11/15/23 10:30 11/15/23 11:00 11/15/23 11:30 Temperature Temperature Source Pulse Rate 92 H 68 98 H Pulse Rate [Left Radial] Respiratory Rate Blood Pressure 93/66 L 109/80 L 95/58 L Blood Pressure [Right Arm] Blood Pressure Mean 72 88 70 Blood Pressure Mean [Right Arm] 02 Sat by Pulse Oximetry 99 100 100 Oxygen Delivery Method Room Air Room Air Room Air 11/15/23 14:01 11/15/23 14:30 11/15/23 15:00 Temperature Temperature Source Pulse Rate 92 H 86 103 H Pulse Rate [Left Radial] Respiratory Rate Blood Pressure 125/62 111/80 Blood Pressure [Right Arm] Blood Pressure Mean 68 85 Blood Pressure Mean [Right Arm] 02 Sat by Pulse Oximetry 94 L 100 96 Oxygen Delivery Method Room Air 11/15/23 15:15 11/15/23 15:30 11/15/23 16:05 Temperature Temperature Source Pulse Rate 79 68 105 H Pulse Rate [Left Radial] Respiratory Rate Blood Pressure 107/77 L 98/70 L Blood Pressure [Right Arm] Blood Pressure Mean 86 76 Blood Pressure Mean [Right Arm] 02 Sat by Pulse Oximetry 93 L 94 L 92 L Oxygen Delivery Method Room Air Room Air Room Air 11/15/23 16:30 11/15/23 17:00 11/15/23 17:30 Temperature Temperature Source Pulse Rate 90 71 90 Pulse Rate [Left Radial] Respiratory Rate Blood Pressure 110/79 105/69 L 111/74 Blood Pressure [Right Arm] Blood Pressure Mean 88 85 86 Blood Pressure Mean [Right Arm] 02 Sat by Pulse Oximetry 98 90 L 97 Oxygen Delivery Method Room Air Room Air 11/15/23 17:49 Temperature 98.0 F Temperature Source Pulse Rate 90 Pulse Rate [Left Radial] Respiratory Rate 19 Blood Pressure 111/73 Blood Pressure [Right Arm] Blood Pressure Mean Blood Pressure Mean [Right Arm] 02 Sat by Pulse Oximetry Oxygen Delivery Method Lab Data Lab results reviewed: Yes I reviewed the patient's lab results. Lab Results 11/15/23 08:30: WBC 7.4, RBC 3.42 L, Hgb 8.5 L, Hct 29.3 L, MCV 85.7, MCH 24.8 L, MCHC 28.9 L, RDW 22.8 H, Plt Count 232, MPV 8.4, Neut % (Auto) 78.6, Lymph % (Auto) 13.0, [place] % (Auto) 8.1, Eos % (Auto) 0.3, Baso % (Auto) 0.1, Neut # (Auto) 5.8, Lymph # (Auto) 1.0, [place] # (Auto) 0.6, Eos # (Auto) 0.0, Baso # (Auto) 0.0, Sodium 134 L, Potassium 3.4 L, Chloride 100, Carbon Dioxide 28, Anion Gap 9.4, BUN 23 H, Creatinine 1.40 H, Estimated Creat Clear 61, Estimated GFR 38 L, Est GFR ( Amer) 45 L, Glucose 103 H, Calcium 8.0 L, Phosphorus 3.3, Magnesium 1.9, Total Bilirubin 0.6, AST 25, ALT 13, Alkaline Phosphatase 93, Troponin I < 0.01, NT-Pro-B Natriuret Pep 5270 H, Total Protein 6.9, Albumin 3.5, Globulin 3.4 H, Albumin/Globulin Ratio 1.0 L, Lipase 207, TSH 18.60 H, Thyroxine (T4) 9.7 11/15/23 08:45: PT 17.4 H, INR 1.63 H, APTT 44.7 H, Urine Color Yellow, Urine Appearance Clear, Urine pH 6.0, Ur Specific [place] 1.010, Urine Protein Negative, Urine Glucose (UA) 3+, Urine Ketones Negative, Urine Blood Trace-i, Urine Nitrate Negative, Urine Bilirubin Negative, Urine Urobilinogen 0.2, Ur Leukocyte Esterase 1+ A, Urine RBC None, Urine WBC 5-10, Ur Squamous Epith Cells 5-10, Ur Transition Epith Cell Occ, Urine Bacteria Trace, HIV 1&2 Antibody Rapid Nonreactive 11/15/23 08:48: VBG pH 7.38, VBG pCO2 46.2, VBG pO2 35.7, VBG HCO3 26.6, VBG Total CO2 28.0 H, VBG O2 Saturation 63.0, VBG Base Excess 1.4, VBG Lactic Acid 1.7 11/15/23 09:08: SARS-CoV-2 (PCR) Not detected, Influenza A Untype (PCR) Not detected, Influenza Type B (PCR) Not detected 11/15/23 10:00: Stool Occult Blood Positive A 11/15/23 10:25: Blood Type A Positive, Antibody Screen Negative, Crossmatch (AHG) See Detail 11/15/23 11:55: Troponin I < 0.01 11/15/23 13:55: Hgb 8.2 L, Hct 27.8 L 11/15/23 14:51: Troponin I < 0.01 11/15/23 13:55 11/15/23 08:30 Orders (Tests/Meds): ED MEDICATIONS Discontinued Medications Generic Name Dose Route Start Last Admin Trade Name Freq PRN Reason Stop Dose Admin Acetaminophen 1,000 mg 11/15/23 08:45 11/15/23 08:58 Acetaminophen 1,000mg/100ml Vial IV 11/15/23 08:46 1,000 mg ONCE ONE Administration Albuterol/Ipratropium 6 ml 11/15/23 09:02 11/15/23 09:13 Ipratropium/Albuterol 3 Ml Neb IH 11/15/23 09:03 6 ml ONCE ONE Administration Pantoprazole Sodium 80 mg/ 100 mls @ 100 mls/hr 11/15/23 11:13 11/15/23 11:23 Sodium Chloride IV 11/15/23 12:12 100 mls/hr ONCE ONE Administration Octreotide Acetate 500 mcg/ 255 mls @ 25.5 mls/hr 11/15/23 11:30 11/15/23 12:05 Sodium Chloride IV 12/15/23 11:29 25.5 mls/hr .Q10H FARHAN Administration 50 MCG/HR Ceftriaxone Sodium 2 gm/ 100 mls @ 200 mls/hr 11/15/23 11:26 11/15/23 12:00 Sodium Chloride IV 11/15/23 11:55 200 mls/hr ONCE ONE Administration Sodium Chloride 250 mls @ 25 mls/hr 11/15/23 11:45 Sod Chlor 0.9% 250ml Bag IV 11/16/23 11:44 .Q10H FARHAN Iopamidol 80 ml 11/15/23 09:18 11/15/23 09:19 Iopamidol-370 (76%);100ml Bottle IV 11/15/23 09:19 80 ml ONCE ONE Administration Methylprednisolone Sodium Succinate 125 mg 11/15/23 08:45 11/15/23 08:58 Methylprednisolone Sod Succ 125mg Vial IV 11/15/23 08:46 125 mg ONCE ONE Administration Octreotide Acetate 50 mcg 11/15/23 11:26 11/15/23 11:40 Octreotide 50mcg/Ml 1ml Amp SQ 11/15/23 11:27 Not Given ONCE ONE Ondansetron HCl 4 mg 11/15/23 08:45 11/15/23 08:58 Ondansetron 4mg/2ml Vial IV 11/15/23 08:46 4 mg ONCE ONE Administration Potassium Chloride 40 meq 11/15/23 09:05 11/15/23 09:12 Potassium Chloride 20meq Tab PO 11/15/23 09:06 40 meq ONCE ONE Administration Sodium Chloride 50 ml 11/15/23 09:18 11/15/23 09:19 0.9 % Sodium Chloride 50 Ml Vial IV 11/15/23 09:19 50 ml ONCE ONE Administration Sodium Chloride 10 ml 11/15/23 09:18 11/15/23 09:19 Sodium Chloride 0.9% 10ml Syr (Rad Only) IV 12/15/23 09:17 10 ml NEEDED PRN Administration Maintain IV Site ORDERS Category Date Time Status Type and Screen Stat BBK 11/15/23 10:[address] abdomen pelvis w con Stat Cat Scan 11/15/23 09:03 Completed CTA Chest [CT angio chest PE protocol] Stat Cat Scan 11/15/23 09:03 Completed CXR --portable [XR chest portable] Stat Exams 11/15/23 08:46 Completed BNP [NT Pro Brain Natriuretic Pep.] Stat Lab 11/15/23 08:30 Completed Complete Blood Count Auto Diff Stat Lab 11/15/23 08:30 Completed Comprehensive Metabolic Panel Stat Lab 11/15/23 08:30 Completed HIV (1&2) Antibody Rapid Stat Lab 11/15/23 08:45 Completed Hemoglobin and Hematocrit Stat Lab 11/15/23 13:55 Completed Hep C Ab with Reflex to RNA Stat Lab 11/15/23 08:45 Received Lipase Stat Lab 11/15/23 08:30 Completed MAG [Magnesium] Stat Lab 11/15/23 08:30 Completed Occult Blood,Stool Stat Lab 11/15/23 10:00 Completed PHOS [Phosphorous] Stat Lab 11/15/23 08:30 Completed PT INR [Prothrombin Time INR] Stat Lab 11/15/23 08:45 Completed PTT [Activated Partial Thrombo Time] Stat Lab 11/15/23 08:45 Completed Rapid PCR Covid and Flu A/B Stat Lab 11/15/23 09:08 Completed T4 (Thyroxine) Stat Lab 11/15/23 08:30 Completed TSH [Thyroid Stimulating Hormone] Stat Lab 11/15/23 08:30 Completed Trop I [Troponin I] Stat Lab 11/15/23 08:30 Completed Troponin I Q3H Lab 11/15/23 11:55 Completed Troponin I Q3H Lab 11/15/23 14:51 Completed UA [Urinalysis and Microscopic] Stat Lab 11/15/23 08:45 Completed Blood Culture Stat Micro 11/15/23 11:55 Received Urine Culture Stat Micro 11/15/23 08:45 Received VBG [Venous Blood Gas] Stat RT 11/15/23 08:48 Completed ECG Data Tracing #1: I reviewed this ECG and interpreted as documented below: Atrial fibrillation with a ventricular rate of [address] changes concerning for ischemia. Right axis deviation noted. Interventricular conduction delay noted. ECG initial impression date: 11/15/23 ECG initial impression time: 08:40 Medical Decision Narrative: In summary, this patient is a 68-year-old female presenting to the Emergency Department for evaluation of sore throat, cough, congestion, shortness of breath, nausea, vomiting, and diarrhea. Differential diagnoses considered include but are not limited to viral syndrome, gastroenteritis, COPD exacerbation, pneumonia, dehydration, CHF exacerbation. Ruling out the most morbid conditions drove assessment. It should be noted patient's history includes CHF, COPD, hypertension, hyperlipidemia, diabetes, and atrial fibrillation which may or may not be at goal therapy. This complicates all aspects of care by increasing patient's risk for morbidity. I reviewed patient's past medical records and noted previous ED evaluation at which point patient also had bilateral lower extremity edema, which is chronic for her in the setting of her CHF. On exam, the patient is lying in bed in no acute distress with normal vital signs on cardiac telemetry. She is in atrial fibrillation which is chronic for her. No increased work of breathing noted. Workup included broad lab evaluation to evaluate for infectious, metabolic, cardiac causes of her symptoms as well as viral swab, chest x-ray, urinalysis. Patient was given DuoNebs, IV methylprednisolone, IV acetaminophen, IV Zofran for symptomatic improvement with concern for possible URI causing COPD exacerbation. Will reassess. I independently interpreted chest x-ray prior to the radiologist read and noted new effusion/consolidation.Please see their read for final interpretation. To further characterize, I ordered CT PE protocol. Given this as well as her abdominal symptoms, I also went ahead and ordered a CT abdomen and pelvis with IV contrast. Labs were obtained that demonstrated kidney function is actually improved from her baseline. She has mild hyponatremia and mild hypokalemia. I did order oral replacement of potassium. She has acute on chronic anemia with a hemoglobin of 8.5 down from 10 back in August. Stool occult is positive for blood. CT scans are concerning for cirrhosis with anasarca, ascites, and pleural effusions. Patient has no known history of liver disease. She states she has had endoscopy which was years ago, so no recent endoscopy to rule out esophageal varices. Given this, I ordered IV pantoprazole, octreotide push and drip, as well as Rocephin for risk of SBP. On reassessment, the patient is sitting upright in no acute distress with normal vital signs. Given acute GI bleed and new finding of cirrhosis, I feel the patient would benefit from admission for continued management. I called and had interactive discussion with Dr. Marcelo with gastroenterology who advised that he would be happy to be involved in the patient's care and is available this weekend for call. I had interactive session with Dr. Amado on behalf of Dr. Ortiz who advised that he would recommend transfer to higher level of care for in-house GI, as the patient could be potentially high risk for decompensation and he does not feel she would should be admitted here. Given this, we initiated discussions with other hospitals. Patient requested [facility] who advised they have no GI. Other conversations/providers as below: [facility] - Dr. Rahman (Hospitalist), waitlisted, no beds [facility] - Dr. Hayes (hospitalist), accepted with bed. I had an interactive discussion with Kayla at [facility] on behalf of Dr. Hayes who cleared the patient for transfer. EMS transport was arranged, however they are not immediately leaving because of disaster response activation and local weather. Patient remains stable. Repeat hemoglobin 8.2 from 8.5 after >5 hours. She remained hemodynamically stable on multiple reassessments. At 1600, transfer still pending because of weather and EMS protocols. Patient care signed out to Dr. De Paz. <Aidee D ePaz MD - Last Filed: 11/15/23 21:10> Vital Signs: 11/15/23 08:34 11/15/23 08:40 11/15/23 09:00 Temperature 97.8 F Temperature Source Oral Pulse Rate 99 H 86 Pulse Rate [Left Radial] 96 H Respiratory Rate 22 Blood Pressure 107/73 L 99/62 L Blood Pressure [Right Arm] 107/73 L Blood Pressure Mean 78 71 Blood Pressure Mean [Right Arm] 84 02 Sat by Pulse Oximetry 96 98 100 Oxygen Delivery Method Room Air Room Air Room Air 11/15/23 09:38 11/15/23 10:00 11/15/23 10:07 Temperature Temperature Source Pulse Rate 90 Pulse Rate [Left Radial] Respiratory Rate 25 H 25 H Blood Pressure 97/60 L 89/65 L 95/56 L Blood Pressure [Right Arm] Blood Pressure Mean 68 69 71 Blood Pressure Mean [Right Arm] 02 Sat by Pulse Oximetry 96 99 99 Oxygen Delivery Method 11/15/23 10:30 11/15/23 11:00 11/15/23 11:30 Temperature Temperature Source Pulse Rate 92 H 68 98 H Pulse Rate [Left Radial] Respiratory Rate Blood Pressure 93/66 L 109/80 L 95/58 L Blood Pressure [Right Arm] Blood Pressure Mean 72 88 70 Blood Pressure Mean [Right Arm] 02 Sat by Pulse Oximetry 99 100 100 Oxygen Delivery Method Room Air Room Air Room Air 11/15/23 14:01 11/15/23 14:30 11/15/23 15:00 Temperature Temperature Source Pulse Rate 92 H 86 103 H Pulse Rate [Left Radial] Respiratory Rate Blood Pressure 125/62 111/80 Blood Pressure [Right Arm] Blood Pressure Mean 68 85 Blood Pressure Mean [Right Arm] 02 Sat by Pulse Oximetry 94 L 100 96 Oxygen Delivery Method Room Air 11/15/23 15:15 11/15/23 15:30 11/15/23 16:05 Temperature Temperature Source Pulse Rate 79 68 105 H Pulse Rate [Left Radial] Respiratory Rate Blood Pressure 107/77 L 98/70 L Blood Pressure [Right Arm] Blood Pressure Mean 86 76 Blood Pressure Mean [Right Arm] 02 Sat by Pulse Oximetry 93 L 94 L 92 L Oxygen Delivery Method Room Air Room Air Room Air 11/15/23 16:30 11/15/23 17:00 11/15/23 17:30 Temperature Temperature Source Pulse Rate 90 71 90 Pulse Rate [Left Radial] Respiratory Rate Blood Pressure 110/79 105/69 L 111/74 Blood Pressure [Right Arm] Blood Pressure Mean 88 85 86 Blood Pressure Mean [Right Arm] 02 Sat by Pulse Oximetry 98 90 L 97 Oxygen Delivery Method Room Air Room Air 11/15/23 17:49 Temperature 98.0 F Temperature Source Pulse Rate 90 Pulse Rate [Left Radial] Respiratory Rate 19 Blood Pressure 111/73 Blood Pressure [Right Arm] Blood Pressure Mean Blood Pressure Mean [Right Arm] 02 Sat by Pulse Oximetry Oxygen Delivery Method Lab Data Lab Results 11/15/23 08:30: WBC 7.4, RBC 3.42 L, Hgb 8.5 L, Hct 29.3 L, MCV 85.7, MCH 24.8 L, MCHC 28.9 L, RDW 22.8 H, Plt Count 232, MPV 8.4, Neut % (Auto) 78.6, Lymph % (Auto) 13.0, [place] % (Auto) 8.1, Eos % (Auto) 0.3, Baso % (Auto) 0.1, Neut # (Auto) 5.8, Lymph # (Auto) 1.0, [place] # (Auto) 0.6, Eos # (Auto) 0.0, Baso # (Auto) 0.0, Sodium 134 L, Potassium 3.4 L, Chloride 100, Carbon Dioxide 28, Anion Gap 9.4, BUN 23 H, Creatinine 1.40 H, Estimated Creat Clear 61, Estimated GFR 38 L, Est GFR ( Amer) 45 L, Glucose 103 H, Calcium 8.0 L, Phosphorus 3.3, Magnesium 1.9, Total Bilirubin 0.6, AST 25, ALT 13, Alkaline Phosphatase 93, Troponin I < 0.01, NT-Pro-B Natriuret Pep 5270 H, Total Protein 6.9, Albumin 3.5, Globulin 3.4 H, Albumin/Globulin Ratio 1.0 L, Lipase 207, TSH 18.60 H, Thyroxine (T4) 9.7 11/15/23 08:45: PT 17.4 H, INR 1.63 H, APTT 44.7 H, Urine Color Yellow, Urine Appearance Clear, Urine pH 6.0, Ur Specific [place] 1.010, Urine Protein Negative, Urine Glucose (UA) 3+, Urine Ketones Negative, Urine Blood Trace-i, Urine Nitrate Negative, Urine Bilirubin Negative, Urine Urobilinogen 0.2, Ur Leukocyte Esterase 1+ A, Urine RBC None, Urine WBC 5-10, Ur Squamous Epith Cells 5-10, Ur Transition Epith Cell Occ, Urine Bacteria Trace, HIV 1&2 Antibody Rapid Nonreactive 11/15/23 08:48: VBG pH 7.38, VBG pCO2 46.2, VBG pO2 35.7, VBG HCO3 26.6, VBG Total CO2 28.0 H, VBG O2 Saturation 63.0, VBG Base Excess 1.4, VBG Lactic Acid 1.7 11/15/23 09:08: SARS-CoV-2 (PCR) Not detected, Influenza A Untype (PCR) Not detected, Influenza Type B (PCR) Not detected 11/15/23 10:00: Stool Occult Blood Positive A 11/15/23 10:25: Blood Type A Positive, Antibody Screen Negative, Crossmatch (AHG) See Detail 11/15/23 11:55: Troponin I < 0.01 11/15/23 13:55: Hgb 8.2 L, Hct 27.8 L 11/15/23 14:51: Troponin I < 0.01 Orders (Tests/Meds): ED MEDICATIONS Discontinued Medications Generic Name Dose Route Start Last Admin Trade Name Destini PRN Reason Stop Dose Admin Acetaminophen 1,000 mg 11/15/23 08:45 11/15/23 08:58 Acetaminophen 1,000mg/100ml Vial IV 11/15/23 08:46 1,000 mg ONCE ONE Administration Albuterol/Ipratropium 6 ml 11/15/23 09:02 11/15/23 09:13 Ipratropium/Albuterol 3 Ml Neb IH 11/15/23 09:03 6 ml ONCE ONE Administration Pantoprazole Sodium 80 mg/ 100 mls @ 100 mls/hr 11/15/23 11:13 11/15/23 11:23 Sodium Chloride IV 11/15/23 12:12 100 mls/hr ONCE ONE Administration Octreotide Acetate 500 mcg/ 255 mls @ 25.5 mls/hr 11/15/23 11:30 11/15/23 12:05 Sodium Chloride IV 12/15/23 11:29 25.5 mls/hr .Q10H FARHAN Administration 50 MCG/HR Ceftriaxone Sodium 2 gm/ 100 mls @ 200 mls/hr 11/15/23 11:26 11/15/23 12:00 Sodium Chloride IV 11/15/23 11:55 200 mls/hr ONCE ONE Administration Sodium Chloride 250 mls @ 25 mls/hr 11/15/23 11:45 Sod Chlor 0.9% 250ml Bag IV 11/16/23 11:44 .Q10H FARHAN Iopamidol 80 ml 11/15/23 09:18 11/15/23 09:19 Iopamidol-370 (76%);100ml Bottle IV 11/15/23 09:19 80 ml ONCE ONE Administration Methylprednisolone Sodium Succinate 125 mg 11/15/23 08:45 11/15/23 08:58 Methylprednisolone Sod Succ 125mg Vial IV 11/15/23 08:46 125 mg ONCE ONE Administration Octreotide Acetate 50 mcg 11/15/23 11:26 11/15/23 11:40 Octreotide 50mcg/Ml 1ml Amp SQ 11/15/23 11:27 Not Given ONCE ONE Ondansetron HCl 4 mg 11/15/23 08:45 11/15/23 08:58 Ondansetron 4mg/2ml Vial IV 11/15/23 08:46 4 mg ONCE ONE Administration Potassium Chloride 40 meq 11/15/23 09:05 11/15/23 09:12 Potassium Chloride 20meq Tab PO 11/15/23 09:06 40 meq ONCE ONE Administration Sodium Chloride 50 ml 11/15/23 09:18 11/15/23 09:19 0.9 % Sodium Chloride 50 Ml Vial IV 11/15/23 09:19 50 ml ONCE ONE Administration Sodium Chloride 10 ml 11/15/23 09:18 11/15/23 09:19 Sodium Chloride 0.9% 10ml Syr (Rad Only) IV 12/15/23 09:17 10 ml NEEDED PRN Administration Maintain IV Site ORDERS Category Date Time Status Type and Screen Stat BBK 11/15/23 10:[address] abdomen pelvis w con Stat Cat Scan 11/15/23 09:03 Completed CTA Chest [CT angio chest PE protocol] Stat Cat Scan 11/15/23 09:03 Completed CXR --portable [XR chest portable] Stat Exams 11/15/23 08:46 Completed BNP [NT Pro Brain Natriuretic Pep.] Stat Lab 11/15/23 08:30 Completed Complete Blood Count Auto Diff Stat Lab 11/15/23 08:30 Completed Comprehensive Metabolic Panel Stat Lab 11/15/23 08:30 Completed HIV (1&2) Antibody Rapid Stat Lab 11/15/23 08:45 Completed Hemoglobin and Hematocrit Stat Lab 11/15/23 13:55 Completed Hep C Ab with Reflex to RNA Stat Lab 11/15/23 08:45 Received Lipase Stat Lab 11/15/23 08:30 Completed MAG [Magnesium] Stat Lab 11/15/23 08:30 Completed Occult Blood,Stool Stat Lab 11/15/23 10:00 Completed PHOS [Phosphorous] Stat Lab 11/15/23 08:30 Completed PT INR [Prothrombin Time INR] Stat Lab 11/15/23 08:45 Completed PTT [Activated Partial Thrombo Time] Stat Lab 11/15/23 08:45 Completed Rapid PCR Covid and Flu A/B Stat Lab 11/15/23 09:08 Completed T4 (Thyroxine) Stat Lab 11/15/23 08:30 Completed TSH [Thyroid Stimulating Hormone] Stat Lab 11/15/23 08:30 Completed Trop I [Troponin I] Stat Lab 11/15/23 08:30 Completed Troponin I Q3H Lab 11/15/23 11:55 Completed Troponin I Q3H Lab 11/15/23 14:51 Completed UA [Urinalysis and Microscopic] Stat Lab 11/15/23 08:45 Completed Blood Culture Stat Micro 11/15/23 11:55 Received Urine Culture Stat Micro 11/15/23 08:45 Received VBG [Venous Blood Gas] Stat RT 11/15/23 08:48 Completed Medical Decision Narrative: In summary, this patient is a 68-year-old female presenting to the Emergency Department for evaluation of sore throat, cough, congestion, shortness of breath, nausea, vomiting, and diarrhea. Differential diagnoses considered include but are not limited to viral syndrome, gastroenteritis, COPD exacerbation, pneumonia, dehydration, CHF exacerbation. Ruling out the most morbid conditions drove assessment. It should be noted patient's history includes CHF, COPD, hypertension, hyperlipidemia, diabetes, and atrial fibrillation which may or may not be at goal therapy. This complicates all aspects of care by increasing patient's risk for morbidity. I reviewed patient's past medical records and noted previous ED evaluation at which point patient also had bilateral lower extremity edema, which is chronic for her in the setting of her CHF. On exam, the patient is lying in bed in no acute distress with normal vital signs on cardiac telemetry. She is in atrial fibrillation which is chronic for her. No increased work of breathing noted. Workup included broad lab evaluation to evaluate for infectious, metabolic, cardiac causes of her symptoms as well as viral swab, chest x-ray, urinalysis. Patient was given DuoNebs, IV methylprednisolone, IV acetaminophen, IV Zofran for symptomatic improvement with concern for possible URI causing COPD exacerbation. Will reassess. I independently interpreted chest x-ray prior to the radiologist read and noted new effusion/consolidation.Please see their read for final interpretation. To further characterize, I ordered CT PE protocol. Given this as well as her abdominal symptoms, I also went ahead and ordered a CT abdomen and pelvis with IV contrast. Labs were obtained that demonstrated kidney function is actually improved from her baseline. She has mild hyponatremia and mild hypokalemia. I did order oral replacement of potassium. She has acute on chronic anemia with a hemoglobin of 8.5 down from 10 back in August. Stool occult is positive for blood. CT scans are concerning for cirrhosis with anasarca, ascites, and pleural effusions. Patient has no known history of liver disease. She states she has had endoscopy which was years ago, so no recent endoscopy to rule out esophageal varices. Given this, I ordered IV pantoprazole, octreotide push and drip, as well as Rocephin for risk of SBP. On reassessment, the patient is sitting upright in no acute distress with normal vital signs. Given acute GI bleed and new finding of cirrhosis, I feel the patient would benefit from admission for continued management. I called and had interactive discussion with Dr. Marcelo with gastroenterology who advised that he would be happy to be involved in the patient's care and is available this weekend for call. I had interactive session with Dr. Amado on behalf of Dr. Ortiz who advised that he would recommend transfer to higher level of care for in-house GI, as the patient could be potentially high risk for decompensation and he does not feel she would should be admitted here. Given this, we initiated discussions with other hospitals. Patient requested [facility] who advised they have no GI. Other conversations/providers as below: [facility] - Dr. Rahman (Hospitalist), waitlisted, no beds [facility] - Dr. Hayes (hospitalist), accepted with bed. I had an interactive discussion with Kayla at [facility] on behalf of Dr. Hayes who cleared the patient for transfer. EMS transport was arranged, however they are not immediately leaving because of disaster response activation and local weather. Patient remains stable. Repeat hemoglobin 8.2 from 8.5 after >5 hours. She remained hemodynamically stable on multiple reassessments. At 1600, transfer still pending because of weather and EMS protocols. Patient care signed out to Dr. De Paz. Patient ultimately transferred after weather improved and EMS was able to provide transport. No additional interventions were necessary while patient was in the emergency department awaiting transport. Patient departed the [facility] ED in stable condition. Critical Care <Jennifer Lockett, DO - Last Filed: 11/15/23 16:01> Critical Care Time Critical Care Time: No
[2023-11-15 08:53] LABS: Lactate Venous 1.7 mmol/L (0.4-2.0); VBG Base Excess 1.4 mmol/L (-2.4-2.3); VBG HCO3 26.6 mmol/L (23-30); VBG PCO2 46.2 mmol/L (35-51); VBG PH 7.38 mmol/L (7.31-7.41); VBG PO2 35.7 mmol/L (28-40)
[2023-11-15 08:55] LABS: Microscopic, Urine URINE MICROSCOPIC (MICROSCOPIC)
[2023-11-15 08:57] LABS: Appearance,Urine CLEAR (Clear); Bilirubin,Urine Negative (Negative); Blood, Urine TRACE-I (Negative); Color,Urine YELLOW (Yellow); Glucose,Urine (UA) 3+ (Negative); Ketones,Urine Negative (Negative); Leukocyte Esterase,Urine 1+ (Negative); Nitrate,Urine Negative (Negative); Protein,Urine Negative (Negative); Urobilinogen,Urine 0.2 EU/dl (0.2)
[2023-11-15 08:57] LABS: Alanine Aminotransferase 13 U/L (12-78); Albumin Level 3.5 g/dl (3.5-5.0); Alkaline Phosphatase 93 U/L (38-126); Anion Gap 9.4 mEq/L (5-15); Aspartate Amino Transferase 25 U/L (14-36); Bilirubin,Total 0.6 mg/dl (0.2-1.3); Blood Urea Nitrogen 23 mg/dl (7-17); Carbon Dioxide 28 mmol/L (22.0-30.0); Chloride 100 mmol/L (98-107); Creatinine Clearance Estimated 61 mL/min (50-200); Estimated Glomerular Filt Rate 38 ml/min (>60); GFR (African American) 45 ML/MIN (>60); Globulin 3.4 g/dL (1.3-3.2); Glucose 103 mg/dl (74-100); Lipase 207 U/L (23-300); Potassium 3.4 mmoL/L (3.5-5.1); Sodium 134 mmol/L (136-145); Total Protein,Serum 6.9 g/dl (6.3-8.2)
[2023-11-15 08:58] LABS: Magnesium 1.9 mg/dl (1.6-2.3); Phosphorous 3.3 mg/dl (2.5-4.5)
[2023-11-15] MEDS: ONDANSETRON 4MG/2ML VIAL 4 MG IV (08:58)
[2023-11-15] MEDS: METHYLPREDNISOLONE SOD SUCC 125MG VIAL 125 MG IV (08:58)
[2023-11-15] MEDS: ACETAMINOPHEN 1,000MG/100ML VIAL 1000 MG IV (08:58)
[2023-11-15 08:59] LABS: Basophils % 0.1 % (0.1-2.0); Eosinophils % 0.3 % (0.1-12.0); Hematocrit 29.3 % (37.0-47.0); Hemoglobin 8.5 g/dL (12.2-16.2); Mean Corpuscular HGB Conc 28.9 g/dL (31.8-35.4); Mean Corpuscular Hemoglobin 24.8 pg (27.0-31.2); Mean Corpuscular Volume 85.7 fl (81-99); Mean Platelet Volume 8.4 fl (7.4-10.4); Monocytes # 0.6 K/mm3 (0.1-1.0); Monocytes % 8.1 % (1.7-9.3); Neutrophils # 5.8 K/mm3 (1.8-7.8); Neutrophils % 78.6 % (37.0-80.0); Platelet Count 232 K/mm3 (142-424); Red Blood Count 3.42 M/mm3 (4.20-5.40); Red Cell Distribution Width 22.8 % (11.5-17.5); White Blood Count 7.4 K/mm3 (4.8-10.8)
--- NOTE | 2023-11-15 09:03 | CT_ITS ---
FINAL REPORT TECHNIQUE: Thin section axial CT with contrast with multiplanar reconstruction This study was performed with techniques to keep radiation doses as low as reasonably achievable, (ALARA). Individualized dose reduction techniques using automated exposure control or adjustment of mA and/or kV according to the patient''s size were employed. CLINICAL HISTORY: SOA, new effusions on CT COMPARISON: 08/29/2023 FINDINGS: Pulmonary vessels enhance in normal fashion without evidence of embolism. Thoracic aorta shows no dissection or aneurysm. 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 No pulmonary mass or infiltrate is present. There is mild prevascular and mediastinal adenopathy, nonspecific. There is no significant pericardial effusion. There is a moderate right and small left pleural effusion, worse from prior exam. There is increasing right lower lobe atelectasis with mild left lower lobe atelectasis. IMPRESSION: Mild progression of bilateral pleural effusions. Reviewed, Interpreted and Dictated by Merari Pagan MD Transcribed by Karlene Iqbal Authenticated and [facility]
--- NOTE | 2023-11-15 09:03 | CT_ITS ---
FINAL REPORT TECHNIQUE: Oral and IV contrast enhanced exam This study was performed with techniques to keep radiation doses as low as reasonably achievable, (ALARA). Individualized dose reduction techniques using automated exposure control or adjustment of mA and/or kV according to the patient''s size were employed. CLINICAL HISTORY: nausea/vom/harrison COMPARISON: 08/29/2023 FINDINGS: Abdomen: Patient is status post cholecystectomy. There is a cirrhotic appearance of the liver. There is minimal perihepatic ascitesOtherwise, solid abdominal organs are unremarkable. There is increasing body wall edema No bowel obstruction is present. There is no free air. There is no adenopathy. Pelvis: The appendix is normal. No bowel wall thickening is present. There is a small amount of ascites. No pelvic mass is seen. IMPRESSION: Cirrhotic appearance of the liver with minimal worsening ascites and progressive body wall edema. Reviewed, Interpreted and Dictated by Merari Pagan MD Transcribed by Karlene Iqbal Authenticated and [facility]
[2023-11-15 09:06] LABS: Activated Partial Thrombo Time 44.7 seconds (22.8-30.6); INR 1.63 (0.9-1.1); Prothrombin Time 17.4 seconds (10.1-12.5)
[2023-11-15 09:07] LABS: Bacteria,Urine Trace /lpf; Transitional Epi Cells,Urine OCC #/lpf (0-3)
[2023-11-15 09:10] LABS: NT Pro Brain Natriuretic Pep. 5270 pg/mL (0-125); Troponin I < 0.01 ng/ml (0.00-0.034)
--- NOTE | 2023-11-15 09:10 | PC.NURSE ---
pt to ct via stretcher
[2023-11-15] MEDS: POTASSIUM CHLORIDE 20MEQ TAB 40 MEQ PO (09:12)
--- NOTE | 2023-11-15 09:12 | PC.NURSE ---
Radiology notified staff of GFR of 38 and requested IVF. As pt has CHF Dr. Lockett will forego IVF prior to angio studies. Radiology notified of this.
[2023-11-15] MEDS: IPRATROPIUM/ALBUTEROL 3 ML NEB 6 ML IH (09:13)
[2023-11-15 09:14] LABS: T4 (Thyroxine) 9.7 ug/dl (5.53-11.0)
[2023-11-15 09:15] LABS: Coronavirus 19, PCR Not Detected (NotDetected); Influenza A, PCR Not Detected (NotDetected); Influenza B, PCR Not Detected (NotDetected)
[2023-11-15] MEDS: IOPAMIDOL-370 (76%);100ML BOTTLE 80 ML IV (09:19)
[2023-11-15] MEDS: 0.9 % SODIUM CHLORIDE 50 ML VIAL IV (09:19)
[2023-11-15] MEDS: SODIUM CHLORIDE 0.9% 10ML SYR (RAD ONLY) 10 ML IV (09:19)
[2023-11-15 09:46] LABS: HIV (1&2) Antibody Rapid NONREACTIVE (NONREACTIVE)
[2023-11-15 10:07] LABS: Occult Blood,Stool Positive (Negative)
--- NOTE | 2023-11-15 10:35 | PC.NURSE ---
rounded on pt. no needs at this time.
--- NOTE | 2023-11-15 11:18 | PC.NURSE ---
[place] with GI clinic is going to get ahold of dr clements on his cell phone and have him call dr young in the ED for consult on pt.
[2023-11-15] MEDS: PANTOPRAZOLE SODIUM 80 MG in 0.9 % SODIUM CHLORIDE 100 ML 100 MG IV (11:23)
--- NOTE | 2023-11-15 11:23 | PC.NURSE ---
on phone with dr clements
--- NOTE | 2023-11-15 11:33 | PC.NURSE ---
DR VASQUEZ SPEAKING WITH DR LOMBARDO, TOOL GRINDER FOR DR KHALIL
--- NOTE | 2023-11-15 11:38 | PC.NURSE ---
Called lab to and notified Dr. Lockett would like to cancel blood bank/transfuse order. S/w Maryan in the lab.
--- NOTE | 2023-11-15 11:44 | HMH.PHAINT1 ---
Pharmacy Intervention Comments: MEDICATION RECONCILIATION COMPLETED ON PATIENT USING EXTERNAL FILL HISTORY FROM PHARMACY. -ERNESTINA CALLE, JAQUAND
--- NOTE | 2023-11-15 11:48 | PC.NURSE ---
Called [facility] per Dr Lockett for this pt to be transferred to [facility]. Advised they would call back as soon as they get the information transferred
[2023-11-15] MEDS: CEFTRIAXONE SODIUM 2 GM in 0.9 % SODIUM CHLORIDE 100 ML IV (12:00)
[2023-11-15] MEDS: OCTREOTIDE ACETATE 500 MCG in 0.9 % SODIUM CHLORIDE 250 ML 25.5 MCG IV (12:05)
--- NOTE | 2023-11-15 12:21 | PC.NURSE ---
Called [facility] per Dr Lockett to speak with GI about getting this pt transferred. [facility] needed some other information and info was given to nurse Pasquale to relay advised they would call back
[2023-11-15 12:31] LABS: Troponin I < 0.01 ng/ml (0.00-0.034)
[2023-11-15 14:05] LABS: Hematocrit 27.8 % (37.0-47.0); Hemoglobin 8.2 g/dL (12.2-16.2)
[2023-11-15 15:26] LABS: Troponin I < 0.01 ng/ml (0.00-0.034)
--- NOTE | 2023-11-15 17:03 | PC.NURSE ---
Called EMS for the transfer of this pt. EMS advised they would be up here shortly as they were having to make some phone calls to see if they could get some extra help
--- NOTE | 2023-11-15 17:14 | PC.NURSE ---
pt assisted to restroom via wheelchair without complications
--- NOTE | 2023-11-15 17:17 | PC.NURSE ---
EMS called back and asked if the other transfers were BLS or ALS as they were trying to make arrangements to get more crews together
[2023-11-16 07:12] LABS: HCV Ab Non Reactive (Non Reactive)
--- NOTE | 2023-11-19 08:06 | PC.NURSE ---
faxed urine culture results to [facility] pt was transferred,
== END 2023-11-15 17:53 | disposition short-term general hospital (02) ==
PROVIDERS: Emergency Medicine; Emergency Provider Student in an Organized Health Care Education/Training Program; PCP Family Medicine
DX: K92.2 Gastrointestinal hemorrhage, unspecified (principal); K74.60 Unspecified cirrhosis of liver; D63.8 Anemia in other chronic diseases classified elsewhere; J90 Pleural effusion, not elsewhere classified; R18.8 Other ascites; R07.1 Chest pain on breathing; J44.9 Chronic obstructive pulmonary disease, unspecified; I11.0 Hypertensive heart disease with heart failure; I50.9 Heart failure, unspecified; E78.5 Hyperlipidemia, unspecified; I48.0 Paroxysmal atrial fibrillation; E11.9 Type 2 diabetes mellitus without complications; Z79.01 Long term (current) use of anticoagulants; Z79.4 Long term (current) use of insulin
CPT/HCPCS: 36430; 71045; 71275; 74177; 80053; 81001; 82272; 82803; 83690; 83735; 83880; 84100; 84436; 84443; 84484; 85014; 85018; 85025; 85610; 85730; 86803; 86850; 87040; 87086; 87088; 87186; 87389; 87636; 93005; 96365; 96366; 96375; 99291; G0328; J0131; J0696; J2354; J2405; J2919; J7620; Q9967

== ENCOUNTER 2023-12-12 20:25 | Inpatient (IN) | payer MEDICARE, SELFPAY ==
[2023-12-12] VITALS (11 sets, daily range): BP systolic 87–141; BP diastolic 59–98; PULSE 40–104; RESP 14–23; TEMP 34.4–35.2; O2SAT 87–100; BMI 42.0
[2023-12-12] MEDS: DEXTROSE 50% 50ML SYRINGE (CRASH CART) 50 ML IVP (20:20)
--- NOTE | 2023-12-12 20:24 | XR_ITS ---
PROCEDURE INFORMATION: Exam: XR Chest Exam date and time: 12/12/2023 8:27 PM Age: 68 years old Clinical indication: Dyspnea; Additional info: Shortness of breath TECHNIQUE: Imaging protocol: Radiologic exam of the chest. Views: 1 view. COMPARISON: CT ANGIO CHEST PE PROTOCOL 11/15/2023 9:20 AM FINDINGS: Lungs: mild interstitial pulmonary edema. Low lung volumes Pleural spaces: Small bilateral pleural effusions. Heart/Mediastinum: Severe cardiomegaly and vascular congestion . Bones/joints: Unremarkable. IMPRESSION: Severe cardiomegaly and mild pulmonary edema. Likely CHF.
--- NOTE | 2023-12-12 20:24 | HMH.EDGENADL ---
Discharge Plan Disposition Patient Disposition: Admitted Condition: Serious Clinical Impressions Clinical Impression: Compression atelectasis, Hypoglycemia associated with type 2 diabetes mellitus Acute exacerbation of CHF (congestive heart failure) Qualifiers: Heart failure type: unspecified Qualified Code(s): I50.9 - Heart failure, unspecified Discharge ED Provider: Nestor Rivers General Adult HPI <BURAK Cohn - Last Filed: 12/12/23 23:01> General Chief complaint: Hyper/Hypoglycemia Stated complaint: blood sugar Time Seen by Provider: 12/12/23 20:27 History of Present Illness HPI narrative: Patient presents for evaluation of dyspnea and hypoglycemia. Patient originally called EMS for difficulty breathing. On arrival however they found the patient lethargic and noted that her blood sugar was 65. They gave her oral glucose en route. She arrives on nasal cannula at 3 L/min but is not normally on oxygen. Patient was slightly obtunded could answer questions and follow commands but was not quite sure of the events of today. She lives alone. She denies chest pain fever chills hemoptysis hematochezia melena but reports shortness of breath. She denies overdosing her medication but also states that she has not eaten today. She is a type II diabetic, she also is a recently diagnosed cirrhotic with anasarca and ascites. She is not kni-gqrzsyh-[id number] type II diabetic. Related Data Home Medications ?Medication ?Instructions ?Recorded ?Confirmed montelukast 10 mg tablet 10 mg PO HS 12/27/17 11/15/23 fluticasone 250 mcg-salmeterol 50 1 inh inhalation BID 12/04/18 11/15/23 mcg/dose blistr powdr for inhalation multivitamin 1 tab PO DAILY 04/28/20 11/15/23 liraglutide 0.6 mg/0.1 mL (18 mg/3 1.8 mg SQ DAILY 06/03/20 11/15/23 mL) subcutaneous pen injector rosuvastatin 10 mg tablet 10 mg PO HS 01/20/23 11/15/23 furosemide 20 mg tablet 20 mg PO DAILY 03/10/23 11/15/23 sacubitril 24 mg-valsartan 26 mg 1 tab PO BID 03/10/23 11/15/23 tablet (Entresto) albuterol sulfate 90 mcg/actuation 2 puff inhalation QIDP PRN 11/15/23 11/15/23 aerosol inhaler Shortness Of Breath empagliflozin 10 mg tablet 10 mg PO DAILY 11/15/23 11/15/23 (Jardiance) levothyroxine 137 mcg tablet 137 mcg PO DAILY 11/15/23 11/15/23 metoprolol succinate 25 mg 25 mg PO DAILY 11/15/23 11/15/23 tablet,extended release 24 hr potassium chloride 10 mEq 10 meq PO BID 11/15/23 11/15/23 capsule,extended release rivaroxaban 20 mg tablet (Xarelto) 20 mg PO QPMWITHMEAL 11/15/23 11/15/23 Previous Rx's ?Medication ?Instructions ?Recorded desvenlafaxine succinate 100 mg See Rx Instructions .Route 12/04/23 tablet,extended release 24 hr .COMPLEX #30 tabs Allergies Allergy/AdvReac Type Severity Reaction Status Date / Time naproxen [From ALEVE] Allergy Intermediate S-SWELLS-OR Verified 07/16/23 15:16 AL/THROAT oxytetracycline Allergy Intermediate Verified 07/16/23 15:16 [From TERRAMYCIN] tetracycline [TETRACYCLINE] Allergy Intermediate NA-SEDATION Verified 07/16/23 15:16 [facility] <BURAK Cohn - Last Filed: 12/12/23 23:01> [facility] Disclaimer: The information contained in this section may have been updated after the patient was seen, as this information can be updated by other users. Medical History BMI 39.0-39.9,adult Non morbid obesity Esophageal stricture Chronic low back pain Asthma-COPD overlap syndrome Osteoarthritis of both knees Irritable bowel syndrome with diarrhea HFrEF (heart failure with reduced ejection fraction) Major depressive disorder Allergic rhinitis CHF (congestive heart failure) Atrial fibrillation COPD (chronic obstructive pulmonary disease) Hypothyroid Hyperlipidemia HTN (hypertension) Surgical History S/P dilatation of esophageal stricture History of right oophorectomy History of cholecystectomy History of tubal ligation Family History Family/Other A-fib Emphysema lung Breast cancer Social History Smoking Status: Unknown if ever smoked years smoked: 15 how long ago did patient quit smokin quit status: quit date established second hand exposure: No alcohol intake: former counseling given: No substance use type: denies use counseling given: No current occupational status: disabled Travel in the last 8 weeks: [place] the [place] adopted: No caregiver/support person: No foster care: No household members: family and none housing: house lives independently: Yes marital status: number of children: 3 number of grandchildren: 11 education level: high school current occupational exposures/hazards: No caffeine: Yes physical activity: none working smoke detector in home: Yes fire extinguisher in home: No carbon monox detector in home: No firearms in home: No do you feel safe at home: Yes victim of physical abuse: No victim of emotional abuse: No victim of sexual abuse: No would you like helpful sources: No Other Medical History Have you received the Flu Vaccine for this season: No Have you received the Pneumonia Vaccine: No <BURAK Cohn - Last Filed: 12/12/23 23:01> ROS Obtained: Yes Systems reviewed as appropriate & no additional complaints except as documented Physical Exam <BURAK Cohn - Last Filed: 12/12/23 23:01> General General appearance: alert and in no apparent distress Respiratory Respiratory exam: Absent normal lung sounds bilaterally (Patient has diminished breath sounds at the right base) Cardiovascular Cardiovascular exam: Present regular rate Neurological Exam Neurological exam: Absent alert or oriented X3 Medical Decision Making <BURAK Cohn - Last Filed: 12/12/23 23:01> Medical Records Medical records reviewed: Yes I reviewed the patient's medical records. Screening: Per USPSTF and CDC recommendations, given the prevalence of disease in our region, it is our hospital?s policy to screen for HIV and viral Hepatitis for all patients aged 18 and over and those with ongoing risk factors. Mark Inquiry Pt receiving controlled substance: No Vital Signs: 12/12/23 20:25 12/12/23 20:34 12/12/23 20:56 Temperature 94.8 F L Temperature Source Rectal Pulse Rate 40 L 104 H Pulse Rate [Apical] 84 Respiratory Rate 14 16 15 Blood Pressure 121/98 H 136/87 Blood Pressure [Right Arm] 141/97 H Blood Pressure Mean [Right Arm] 111 Blood Pressure Source Blood Pressure Source [Right Arm] Automatic Cuff Blood Pressure Position Blood Pressure Position [Right Arm] Sitting 02 Sat by Pulse Oximetry 97 98 100 Oxygen Delivery Method Nasal Cannula Oxygen Flow Rate (LPM) 3 12/12/23 21:15 12/12/23 21:17 12/12/23 21:30 Temperature Temperature Source Pulse Rate 83 68 78 Pulse Rate [Apical] Respiratory Rate 19 15 20 Blood Pressure 132/93 H 103/78 L 107/71 L Blood Pressure [Right Arm] Blood Pressure Mean [Right Arm] Blood Pressure Source Blood Pressure Source [Right Arm] Blood Pressure Position Blood Pressure Position [Right Arm] 02 Sat by Pulse Oximetry 87 L 100 87 L Oxygen Delivery Method Oxygen Flow Rate (LPM) 12/12/23 21:33 12/12/23 22:00 12/12/23 22:35 Temperature 94 F L Temperature Source Rectal Pulse Rate 81 85 Pulse Rate [Apical] Respiratory Rate 18 16 14 Blood Pressure 87/59 L 98/79 L 119/87 Blood Pressure [Right Arm] Blood Pressure Mean [Right Arm] Blood Pressure Source Automatic Cuff Blood Pressure Source [Right Arm] Blood Pressure Position Sitting Blood Pressure Position [Right Arm] 02 Sat by Pulse Oximetry 100 Oxygen Delivery Method Nasal Cannula Oxygen Flow Rate (LPM) 3 Lab Data Lab results reviewed: Yes I reviewed the patient's lab results. Lab Results 12/12/23 20:25: WBC 7.1, RBC 4.15 L, Hgb 11.1 L, Hct 36.3 L, MCV 87.4, MCH 26.6 L, MCHC 30.5 L, RDW 25.1 H*, Plt Count 253, MPV 9.0, Neut % (Auto) 74.1, Lymph % (Auto) 15.4, [place] % (Auto) 10.0 H, Eos % (Auto) 0.3, Baso % (Auto) 0.3, Neut # (Auto) 5.2, Lymph # (Auto) 1.1, [place] # (Auto) 0.7, Eos # (Auto) 0.0, Baso # (Auto) 0.0, Sodium 136, Potassium 3.5, Chloride 102, Carbon Dioxide 25, Anion Gap 12.5, BUN 21 H, Creatinine 1.40 H, Estimated Creat Clear 31, Estimated GFR 38 L, Est GFR ( Amer) 45 L, Glucose 33 L*, Hemoglobin A1c 5.6, Calcium 8.6, Phosphorus 3.7, Magnesium 1.7, Total Bilirubin 1.2, AST 38 H, ALT 13, Alkaline Phosphatase 99, NT-Pro-B Natriuret Pep 8260 H, Total Protein 7.5, Albumin 3.8, Globulin 3.7 H, Albumin/Globulin Ratio 1.0 L, Lipase 87, Acetone Level None detected 12/12/23 20:36: VBG pH 7.41, VBG pCO2 41.1, VBG pO2 163.4 H, VBG HCO3 25.5, VBG Total CO2 26.7, VBG O2 Saturation 99.5 H, VBG Base Excess 0.8, VBG Lactic Acid 2.4 H 12/12/23 21:31: Urine Color Yellow, Urine Appearance Clear, Urine pH 6.0, Ur Specific [place] 1.015, Urine Protein Negative, Urine Glucose (UA) 2+, Urine Ketones Negative, Urine Blood Negative, Urine Nitrate Negative, Urine Bilirubin Negative, Urine Urobilinogen 0.2, Ur Leukocyte Esterase Negative, Urine WBC 3-5, Ur Squamous Epith Cells 3-5, Urine Bacteria 1+, Hyaline Casts 5-10, Urine Mucus 1+ 12/12/23 21:39: HIV 1&2 Antibody Rapid Nonreactive 12/12/23 20:25 12/12/23 20:25 Orders (Tests/Meds): ED MEDICATIONS Generic Name Dose Route Start Last Admin Trade Name Freq PRN Reason Stop Dose Admin Acetaminophen 650 mg 12/12/23 21:50 Acetaminophen 325mg Tab PO 01/11/24 21:49 Q6HP PRN Fever or Mild Pain (1-3) Dextrose/Sodium Chloride 1,000 mls @ 50 mls/hr 12/12/23 22:00 Dextrose 5%-0.45% Nacl Iv Soln IV 01/11/24 21:59 .Q20H FARHAN Discontinued Medications Generic Name Dose Route Start Last Admin Trade Name Freq PRN Reason Stop Dose Admin Dextrose 50 ml 12/12/23 20:20 12/12/23 20:20 Dextrose 50% 50ml Syringe (Crash Cart) IVP 12/12/23 20:21 50 ml ONCE ONE Administration Furosemide 80 mg 12/12/23 21:17 12/12/23 21:46 Furosemide 40mg/4ml Vial IV 12/12/23 21:18 80 mg ONCE ONE Administration Iopamidol 80 ml 12/12/23 21:05 12/12/23 21:07 Iopamidol-370 (76%);100ml Bottle IV 12/12/23 21:06 80 ml ONCE ONE Administration Ondansetron HCl 4 mg 12/12/23 20:24 12/12/23 20:50 Ondansetron 4mg/2ml Vial IV 12/12/23 20:25 4 mg ONCE ONE Administration Sodium Chloride 50 ml 12/12/23 21:05 12/12/23 21:06 0.9 % Sodium Chloride 50 Ml Vial IV 12/12/23 21:06 40 ml ONCE ONE Administration Sodium Chloride 10 ml 12/12/23 21:05 12/12/23 21:07 Sodium Chloride 0.9% 10ml Syr (Rad Only) IV 12/12/23 21:06 10 ml ONCE ONE Administration ORDERS Category Date Time Status CT abdomen pelvis w con Stat Cat Scan 12/12/23 20:[address] angio chest PE protocol Stat Cat Scan 12/12/23 20:53 Completed Pulmonology Consult [Consult to Pulmonology] [CONS] Cons 12/12/23 21:54 Active Routine Chest XR -- portable [XR chest portable] Stat Exams 12/12/23 20:24 Completed Acetone, Serum (Rapid) Stat Lab 12/12/23 20:25 Completed BNP [NT Pro Brain Natriuretic Pep.] Stat Lab 12/12/23 20:25 Completed CBC w/Auto Diff [Complete Blood Count Auto Diff] Stat Lab 12/12/23 20:25 Completed CMP [Comprehensive Metabolic Panel] Stat Lab 12/12/23 20:25 Completed HIV (1&2) Antibody Rapid Stat Lab 12/12/23 21:39 Completed Hemoglobin A1C Stat Lab 12/12/23 20:25 Completed Hep C Ab with Reflex to RNA Stat Lab 12/12/23 21:39 Received INR [Prothrombin Time INR] Stat Lab 12/12/23 22:12 Ordered Lipase Stat Lab 12/12/23 20:25 Completed Magnesium Stat Lab 12/12/23 20:25 Completed Phosphorous Stat Lab 12/12/23 20:25 Completed UA [Urinalysis and Microscopic] Stat Lab 12/12/23 21:31 Completed VBG [Venous Blood Gas] Stat RT 12/12/23 20:36 Completed Medical Decision Narrative: In summary patient is a 68-year-old female who presents to the emergency department for evaluation of dyspnea and low blood sugar. Patient is hemodynamically stable upon arrival, hypothermic 94.8 however her [place] Coma Score is currently 13 and she appears lethargic. Physical exam shows a morbidly obese, with a BMI of 42, 68-year-old female although slightly lethargic does not appear to be in acute distress. Auscultation of breath sounds reveals significantly diminished breath sounds at the right base with some rales, normal heart sounds no abdominal pain on palpation with distant but present bowel sounds. Differential diagnosis includes therapeutic misadventure, ACS, CHF, infection, PE etc. Initial workup will be conducted with hematologic labs plain film chest x-ray CT scan PE protocol CT scan abdomen pelvis urinalysis.. Initial interventions include DuoNeb and Decadron, D50 for a fingerstick blood sugar of 45 on arrival. Initial workup reviewed by me shows a normal white count with no shift, venous blood gas with a pH of 7.41 with a venous lactic acid of 2.4, chronic kidney disease with creatinine of 1.4 and NT proBNP of 8260 which is significantly elevated from October which was 5270 a bland urinalysis and my informal interpretation of her CT scan shows significant pleural effusion with compressive atelectasis of the right lower lobe significantly progressed since imaging that I reviewed in October, anasarca, significant ascites, signs of hepatic cirrhosis as well as a left-sided pleural effusion.. Upon repeat evaluation patient responded to resuscitation and is now mentating with a [place] Coma Score 15 although she remains hypothermic she is being rewarmed, she is still requiring oxygen. Given that she has a history of heart failure and cirrhosis and unsure whether this represents CHF or hepatic hydrothorax although I favor the latter. Given this I had interactive discussion with Dr. Jacome about patient management and she will be admitted for Dr. Ortiz for further evaluation and care. Given her radiographic findings I gave her a dose of Lasix and ordered a Saravia insertion for accurate output. <Nestor Rivers MD - Last Filed: 12/12/23 23:11> Vital Signs: 12/12/23 20:25 12/12/23 20:34 12/12/23 20:56 Temperature 94.8 F L Temperature Source Rectal Pulse Rate 40 L 104 H Pulse Rate [Apical] 84 Respiratory Rate 14 16 15 Blood Pressure 121/98 H 136/87 Blood Pressure [Right Arm] 141/97 H Blood Pressure Mean [Right Arm] 111 Blood Pressure Source Blood Pressure Source [Right Arm] Automatic Cuff Blood Pressure Position Blood Pressure Position [Right Arm] Sitting 02 Sat by Pulse Oximetry 97 98 100 Oxygen Delivery Method Nasal Cannula Oxygen Flow Rate (LPM) 3 12/12/23 21:15 12/12/23 21:17 12/12/23 21:30 Temperature Temperature Source Pulse Rate 83 68 78 Pulse Rate [Apical] Respiratory Rate 19 15 20 Blood Pressure 132/93 H 103/78 L 107/71 L Blood Pressure [Right Arm] Blood Pressure Mean [Right Arm] Blood Pressure Source Blood Pressure Source [Right Arm] Blood Pressure Position Blood Pressure Position [Right Arm] 02 Sat by Pulse Oximetry 87 L 100 87 L Oxygen Delivery Method Oxygen Flow Rate (LPM) 12/12/23 21:33 12/12/23 22:00 12/12/23 22:35 Temperature 94 F L Temperature Source Rectal Pulse Rate 81 85 Pulse Rate [Apical] Respiratory Rate 18 16 14 Blood Pressure 87/59 L 98/79 L 119/87 Blood Pressure [Right Arm] Blood Pressure Mean [Right Arm] Blood Pressure Source Automatic Cuff Blood Pressure Source [Right Arm] Blood Pressure Position Sitting Blood Pressure Position [Right Arm] 02 Sat by Pulse Oximetry 100 Oxygen Delivery Method Nasal Cannula Oxygen Flow Rate (LPM) 3 Lab Data Lab Results 12/12/23 20:25: WBC 7.1, RBC 4.15 L, Hgb 11.1 L, Hct 36.3 L, MCV 87.4, MCH 26.6 L, MCHC 30.5 L, RDW 25.1 H*, Plt Count 253, MPV 9.0, Neut % (Auto) 74.1, Lymph % (Auto) 15.4, [place] % (Auto) 10.0 H, Eos % (Auto) 0.3, Baso % (Auto) 0.3, Neut # (Auto) 5.2, Lymph # (Auto) 1.1, [place] # (Auto) 0.7, Eos # (Auto) 0.0, Baso # (Auto) 0.0, Sodium 136, Potassium 3.5, Chloride 102, Carbon Dioxide 25, Anion Gap 12.5, BUN 21 H, Creatinine 1.40 H, Estimated Creat Clear 31, Estimated GFR 38 L, Est GFR ( Amer) 45 L, Glucose 33 L*, Hemoglobin A1c 5.6, Calcium 8.6, Phosphorus 3.7, Magnesium 1.7, Total Bilirubin 1.2, AST 38 H, ALT 13, Alkaline Phosphatase 99, NT-Pro-B Natriuret Pep 8260 H, Total Protein 7.5, Albumin 3.8, Globulin 3.7 H, Albumin/Globulin Ratio 1.0 L, Lipase 87, Acetone Level None detected 12/12/23 20:36: VBG pH 7.41, VBG pCO2 41.1, VBG pO2 163.4 H, VBG HCO3 25.5, VBG Total CO2 26.7, VBG O2 Saturation 99.5 H, VBG Base Excess 0.8, VBG Lactic Acid 2.4 H 12/12/23 21:31: Urine Color Yellow, Urine Appearance Clear, Urine pH 6.0, Ur Specific [place] 1.015, Urine Protein Negative, Urine Glucose (UA) 2+, Urine Ketones Negative, Urine Blood Negative, Urine Nitrate Negative, Urine Bilirubin Negative, Urine Urobilinogen 0.2, Ur Leukocyte Esterase Negative, Urine WBC 3-5, Ur Squamous Epith Cells 3-5, Urine Bacteria 1+, Hyaline Casts 5-10, Urine Mucus 1+ 12/12/23 21:39: HIV 1&2 Antibody Rapid Nonreactive Orders (Tests/Meds): ED MEDICATIONS Generic Name Dose Route Start Last Admin Trade Name Freq PRN Reason Stop Dose Admin Acetaminophen 650 mg 12/12/23 21:50 Acetaminophen 325mg Tab PO 01/11/24 21:49 Q6HP PRN Fever or Mild Pain (1-3) Dextrose/Sodium Chloride 1,000 mls @ 50 mls/hr 12/12/23 22:00 Dextrose 5%-0.45% Nacl Iv Soln IV 01/11/24 21:59 .Q20H FARHAN Discontinued Medications Generic Name Dose Route Start Last Admin Trade Name Freq PRN Reason Stop Dose Admin Dextrose 50 ml 12/12/23 20:20 12/12/23 20:20 Dextrose 50% 50ml Syringe (Crash Cart) IVP 12/12/23 20:21 50 ml ONCE ONE Administration Furosemide 80 mg 12/12/23 21:17 12/12/23 21:46 Furosemide 40mg/4ml Vial IV 12/12/23 21:18 80 mg ONCE ONE Administration Iopamidol 80 ml 12/12/23 21:05 12/12/23 21:07 Iopamidol-370 (76%);100ml Bottle IV 12/12/23 21:06 80 ml ONCE ONE Administration Ondansetron HCl 4 mg 12/12/23 20:24 12/12/23 20:50 Ondansetron 4mg/2ml Vial IV 12/12/23 20:25 4 mg ONCE ONE Administration Sodium Chloride 50 ml 12/12/23 21:05 12/12/23 21:06 0.9 % Sodium Chloride 50 Ml Vial IV 12/12/23 21:06 40 ml ONCE ONE Administration Sodium Chloride 10 ml 12/12/23 21:05 12/12/23 21:07 Sodium Chloride 0.9% 10ml Syr (Rad Only) IV 12/12/23 21:06 10 ml ONCE ONE Administration ORDERS Category Date Time Status CT abdomen pelvis w con Stat Cat Scan 12/12/23 20:[address] angio chest PE protocol Stat Cat Scan 12/12/23 20:53 Completed Pulmonology Consult [Consult to Pulmonology] [CONS] Cons 12/12/23 21:54 Active Routine Chest XR -- portable [XR chest portable] Stat Exams 12/12/23 20:24 Completed Acetone, Serum (Rapid) Stat Lab 12/12/23 20:25 Completed BNP [NT Pro Brain Natriuretic Pep.] Stat Lab 12/12/23 20:25 Completed CBC w/Auto Diff [Complete Blood Count Auto Diff] Stat Lab 12/12/23 20:25 Completed CMP [Comprehensive Metabolic Panel] Stat Lab 12/12/23 20:25 Completed HIV (1&2) Antibody Rapid Stat Lab 12/12/23 21:39 Completed Hemoglobin A1C Stat Lab 12/12/23 20:25 Completed Hep C Ab with Reflex to RNA Stat Lab 12/12/23 21:39 Received INR [Prothrombin Time INR] Stat Lab 12/12/23 22:12 Ordered Lipase Stat Lab 12/12/23 20:25 Completed Magnesium Stat Lab 12/12/23 20:25 Completed Phosphorous Stat Lab 12/12/23 20:25 Completed UA [Urinalysis and Microscopic] Stat Lab 12/12/23 21:31 Completed VBG [Venous Blood Gas] Stat RT 12/12/23 20:36 Completed Medical Decision Narrative: In summary patient is a 68-year-old female who presents to the emergency department for evaluation of dyspnea and low blood sugar. Patient is hemodynamically stable upon arrival, hypothermic 94.8 however her [place] Coma Score is currently 13 and she appears lethargic. Physical exam shows a morbidly obese, with a BMI of 42, 68-year-old female although slightly lethargic does not appear to be in acute distress. Auscultation of breath sounds reveals significantly diminished breath sounds at the right base with some rales, normal heart sounds no abdominal pain on palpation with distant but present bowel sounds. Differential diagnosis includes therapeutic misadventure, ACS, CHF, infection, PE etc. Initial workup will be conducted with hematologic labs plain film chest x-ray CT scan PE protocol CT scan abdomen pelvis urinalysis.. Initial interventions include DuoNeb and Decadron, D50 for a fingerstick blood sugar of 45 on arrival. Initial workup reviewed by me shows a normal white count with no shift, venous blood gas with a pH of 7.41 with a venous lactic acid of 2.4, chronic kidney disease with creatinine of 1.4 and NT proBNP of 8260 which is significantly elevated from October which was 5270 a bland urinalysis and my informal interpretation of her CT scan shows significant pleural effusion with compressive atelectasis of the right lower lobe significantly progressed since imaging that I reviewed in October, anasarca, significant ascites, signs of hepatic cirrhosis as well as a left-sided pleural effusion.. Upon repeat evaluation patient responded to resuscitation and is now mentating with a Yarelis Coma Score 15 although she remains hypothermic she is being rewarmed, she is still requiring oxygen. Given that she has a history of heart failure and cirrhosis and unsure whether this represents CHF or hepatic hydrothorax although I favor the latter. Given this I had interactive discussion with Dr. Jacome about patient management and she will be admitted for Dr. Ortiz for further evaluation and care. Given her radiographic findings I gave her a dose of Lasix and ordered a Saravia insertion for accurate output. I was consulted by the BOB, and we discussed the complexity of the problems being addressed.I approved the treatment and management plan for this patient?s care in the Emergency Department, thus performing a substantive portion of the medical decision making.Signed, Nestor Rivers MD Critical Care <BURAK Cohn - Last Filed: 12/12/23 23:01> Critical Care Time Critical Care Time: Yes Attestation: On 12/12/23, the high probability of a clinically significant, sudden or life threatening deterioration of the following system cardiopulmonary, endocrine required my full and direct attention, intervention and personal management. The time I documented below is in addition to time spent performing reported procedures but includes the following listed in this critical care notation. Total Time Total Critical Care Time: 30
--- NOTE | 2023-12-12 20:28 | ECG_ITS ---
APPROVED REPORT Exam: Resting ECG HR:84 bpm ECG Measurements Heart Rate 84 AXES QRSd 157 QRS 156 QT 461 T -10 QTc 502 Conclusion ATRIAL FIBRILLATION RIGHT AXIS DEVIATION [QRS AXIS > 100] INTRAVENTRICULAR CONDUCTION DELAY [130+ ms QRS DURATION] Electronically signed by : NORMAN GUERRIER, 12/12/2023 22:54:52
[2023-12-12 20:42] LABS: Basophils % 0.3 % (0.1-2.0); Eosinophils % 0.3 % (0.1-12.0); Hematocrit 36.3 % (37.0-47.0); Hemoglobin 11.1 g/dL (12.2-16.2); Lymphocytes # 1.1 K/mm3 (0.7-4.5); Lymphocytes % 15.4 % (10-50); Mean Corpuscular HGB Conc 30.5 g/dL (31.8-35.4); Mean Corpuscular Hemoglobin 26.6 pg (27.0-31.2); Mean Corpuscular Volume 87.4 fl (81-99); Monocytes # 0.7 K/mm3 (0.1-1.0); Neutrophils # 5.2 K/mm3 (1.8-7.8); Neutrophils % 74.1 % (37.0-80.0); Platelet Count 253 K/mm3 (142-424); Red Blood Count 4.15 M/mm3 (4.20-5.40); White Blood Count 7.1 K/mm3 (4.8-10.8)
--- NOTE | 2023-12-12 20:42 | PC.NURSE ---
upon arrival pts fsbs was 43. @2019 pt was given 1 amp of D50. 2034 fsbs 203 pts temp was 94.8. began to warm pt up
[2023-12-12 20:43] LABS: Lactate Venous 2.4 mmol/L (0.4-2.0); VBG Base Excess 0.8 mmol/L (-2.4-2.3); VBG HCO3 25.5 mmol/L (23-30); VBG Oxygen Saturation 99.5 % (50-70); VBG PCO2 41.1 mmol/L (35-51); VBG PH 7.41 mmol/L (7.31-7.41); VBG PO2 163.4 mmol/L (28-40); VBG Total CO2 26.7 mmol/L (23-27)
[2023-12-12 20:45] LABS: Red Cell Distribution Width 25.1 % (11.5-17.5)
[2023-12-12 20:50] LABS: Alanine Aminotransferase 13 U/L (12-78); Albumin Level 3.8 g/dl (3.5-5.0); Alkaline Phosphatase 99 U/L (38-126); Anion Gap 12.5 mEq/L (5-15); Aspartate Amino Transferase 38 U/L (14-36); Bilirubin,Total 1.2 mg/dl (0.2-1.3); Blood Urea Nitrogen 21 mg/dl (7-17); Calcium 8.6 mg/dl (8.4-10.2); Carbon Dioxide 25 mmol/L (22.0-30.0); Chloride 102 mmol/L (98-107); Creatinine Clearance Estimated 31 mL/min (50-200); Estimated Glomerular Filt Rate 38 ml/min (>60); GFR (African American) 45 ML/MIN (>60); Globulin 3.7 g/dL (1.3-3.2); Lipase 87 U/L (23-300); Magnesium 1.7 mg/dl (1.6-2.3); Potassium 3.5 mmoL/L (3.5-5.1); Sodium 136 mmol/L (136-145); Total Protein,Serum 7.5 g/dl (6.3-8.2)
[2023-12-12] MEDS: ONDANSETRON 4MG/2ML VIAL 4 MG IV (20:50)
[2023-12-12 20:52] LABS: Glucose 33 mg/dl (74-100)
--- NOTE | 2023-12-12 20:53 | CT_ITS ---
PROCEDURE INFORMATION: Exam: CT Abdomen And Pelvis With Contrast Exam date and time: 12/12/2023 9:08 PM Age: 68 years old Clinical indication: Abdominal pain; Generalized; Additional info: Abdominal pain, dyspnea TECHNIQUE: Imaging protocol: Computed tomography of the abdomen and pelvis with contrast. 3D rendering (Not supervised by radiologist): MIP and/or 3D reconstructed images were created by the technologist. Radiation optimization: All CT scans at this facility use at least one of these dose optimization techniques: automated exposure control; mA and/or kV adjustment per patient size (includes targeted exams where dose is matched to clinical indication); or iterative reconstruction. Contrast material: ISOVUE; Contrast volume: 80 ml; Contrast route: IV; COMPARISON: CT ABDOMEN PELVIS W CON 11/15/2023 9:20 AM FINDINGS: Pleural spaces: Increasing right pleural effusion now moderate-large. Trace left pleural effusion is stable. Heart: Cardiomegaly Liver: Cirrhotic liver. No enhancing masses are seen in the liver Gallbladder and biliary ducts: Cholecystectomy Pancreas: Normal. No ductal dilation. Spleen: Normal. No splenomegaly. Adrenal glands: Normal. No mass. Kidneys and ureters: Normal. No hydronephrosis. Stomach and bowel: Unremarkable. No obstruction. No mucosal thickening. Appendix: No evidence of appendicitis. Intraperitoneal space: Small ascites is increased. Vasculature: There is some reflux of contrast seen into the hepatic veins. Lymph nodes: Unremarkable. No enlarged lymph nodes. Urinary bladder: Unremarkable as visualized. Reproductive: Unremarkable as visualized. Bones/joints: Unremarkable. No acute fracture. Soft tissues: Persistent moderate anasarca also unchanged. IMPRESSION: 1. Increasing thoracic ascites. Rlukapws-gf-nvbmw right pleural effusion 2. Increased small ascites. Stable moderate anasarca. 3. Cirrhotic liver. 4. Chronic decreased disc space height through the lumbar spine unchanged from previous exam.
--- NOTE | 2023-12-12 20:53 | CT_ITS ---
PROCEDURE INFORMATION: Exam: CTA Chest Without And With Contrast Exam date and time: 12/12/2023 9:08 PM Age: 68 years old Clinical indication: Dyspnea; Additional info: Shortness of breath TECHNIQUE: Imaging protocol: Computed tomographic angiography of the chest without and with contrast. Exam focused on the arteries. 3D rendering (Not supervised by radiologist): MIP and/or 3D reconstructed images were created by the technologist. Radiation optimization: All CT scans at this facility use at least one of these dose optimization techniques: automated exposure control; mA and/or kV adjustment per patient size (includes targeted exams where dose is matched to clinical indication); or iterative reconstruction. Contrast material: ISOVUE; Contrast volume: 80 ml; Contrast route: INTRAVENOUS (IV); COMPARISON: CT ANGIO CHEST PE PROTOCOL 11/15/2023 9:20 AM FINDINGS: Pulmonary arteries: No acute pulmonary embolus. Great vessels off aortic arch: Aberrant right subclavian artery Aorta: No CT evidence of aortic dissection. Veins: Reflux full-strength contrast is demonstrated into the hepatic veins and intrahepatic IVC. Lungs: See Pleural spaces finding. Pleural spaces: Large right pleural effusion with near complete atelectasis of the right lower lobe. Trace left pleural effusion. Heart: Cardiomegaly. Lymph nodes: Unremarkable. No enlarged lymph nodes. Bones/joints: Unremarkable. No acute fracture. Soft tissues: Unremarkable. IMPRESSION: 1. Severe cardiomegaly and likely congestive heart failure. 2. No visible acute pulmonary embolus or aortic dissection 3. Large right pleural effusion maybe related to congestive heart failure or thoracic ascites.
--- NOTE | 2023-12-12 20:55 | PC.NURSE ---
fs 171 now
[2023-12-12 20:59] LABS: NT Pro Brain Natriuretic Pep. 8260 pg/mL (0-125)
--- NOTE | 2023-12-12 20:59 | PC.NURSE ---
pt to ct at this time
[2023-12-12 21:05] LABS: Phosphorous 3.7 mg/dl (2.5-4.5)
[2023-12-12] MEDS: 0.9 % SODIUM CHLORIDE 50 ML VIAL IV (21:06)
[2023-12-12] MEDS: IOPAMIDOL-370 (76%);100ML BOTTLE 80 ML IV (21:07)
[2023-12-12] MEDS: SODIUM CHLORIDE 0.9% 10ML SYR (RAD ONLY) 10 ML IV (21:07)
[2023-12-12 21:09] LABS: Hemoglobin A1C 5.6 % (4.0-6.0)
--- NOTE | 2023-12-12 21:17 | PC.NURSE ---
FS 161 now
[2023-12-12 21:26] LABS: Acetone, Serum (Rapid) None Detected (None Detect)
[2023-12-12 21:36] LABS: Microscopic, Urine URINE MICROSCOPIC (MICROSCOPIC)
[2023-12-12 21:41] LABS: Appearance,Urine CLEAR (Clear); Bilirubin,Urine Negative (Negative); Blood, Urine Negative (Negative); Color,Urine YELLOW (Yellow); Glucose,Urine (UA) 2+ (Negative); Ketones,Urine Negative (Negative); Leukocyte Esterase,Urine Negative (Negative); Nitrate,Urine Negative (Negative); Protein,Urine Negative (Negative); Specific Gravity, Urine 1.015 (1.005-1.030); Urobilinogen,Urine 0.2 EU/dl (0.2)
[2023-12-12] MEDS: FUROSEMIDE 40MG/4ML VIAL 80 MG IV (21:46)
--- NOTE | 2023-12-12 21:47 | PC.NURSE ---
2135 fs 164
[2023-12-12 21:49] LABS: Bacteria,Urine 1+ /lpf; Mucus,Urine 1+ /lpf
--- NOTE | 2023-12-12 21:57 | PC.NURSE ---
temp 94.0
--- NOTE | 2023-12-12 21:59 | PC.NURSE ---
fs 138
[2023-12-12 22:34] LABS: HIV (1&2) Antibody Rapid NONREACTIVE (NONREACTIVE)
--- NOTE | 2023-12-12 22:35 | PC.NURSE ---
Patient arrived to floor via stretcher from ED at 22:32.
--- NOTE | 2023-12-12 22:45 | PC.NURSE ---
Patient placed on bare hugger for hypothermia at this time. Patient temp sensing skinner currently reads 95.4. Patient with eyes closed and appears to be resting, but arouses to voice easily.
[2023-12-12] MEDS: Dex 5% in 0.45% NaCl 1,000 ML 50 ML IV (23:13)
[2023-12-12 23:26] LABS: INR 1.47 (0.9-1.1); Prothrombin Time 15.8 seconds (10.1-12.5)
[2023-12-13] VITALS (16 sets, daily range): BP systolic 93–123; BP diastolic 49–79; PULSE 83–110; RESP 10–20; TEMP 35.7–37.7; O2SAT 92–100; BMI 42.3
[2023-12-13 00:10] LABS: Reflex Lactic Add Lactic Reflex
[2023-12-13 01:20] LABS: POC Glucose,Bedside 87 (70-110)
[2023-12-13 01:20] LABS: POC Glucose,Bedside 89 (70-110)
[2023-12-13 01:31] LABS: Lactic Acid Follow Up (RFLX 1) 1.1 mmol/L (0.7-2.1)
--- NOTE | 2023-12-13 04:56 | PC.NURSE ---
Dr. Jacome paged for patient decreasing FSBS. Patient most recent FSBS at 67, and patient remains NPO while receiving 50ml/hr of D51/2NS. New verbal orders received to increase rate to 75ml/hr. Verbal repeat back for clarification per TRN. No new orders at this time.
[2023-12-13] MEDS: Dex 5% in 0.45% NaCl 1,000 ML 75 ML IV (06:45)
[2023-12-13] MEDS: DEXTROSE 50% 50ML SYRINGE (CRASH CART) 50 ML IVP (07:30)
--- NOTE | 2023-12-13 07:55 | HMH.PHAINT1 ---
Pharmacy Intervention Comments: MEDICATION RECONCILIATION COMPLETED ON PATIENT USING EXTERNAL FILL HISTORY FROM PHARMACY. -ERNESTINA CALLE, JAQUAND
--- NOTE | 2023-12-13 08:04 | EXP.HP ---
History of Present Illness *Admission Date: 12/13/23 *Reason for visit:: CHF, cirrhosis *History of present illness: Patient presents for evaluation of dyspnea and hypoglycemia. Patient originally called EMS for difficulty breathing. On arrival however they found the patient lethargic and noted that her blood sugar was 65. They gave her oral glucose en route. She arrives on nasal cannula at 3 L/min but is not normally on oxygen. Patient was slightly obtunded could answer questions and follow commands but was not quite sure of the events of today. She lives alone. She denies chest pain fever chills hemoptysis hematochezia melena but reports shortness of breath. She denies overdosing her medication but also states that she has not eaten today. She is a type II diabetic, she also is a recently diagnosed cirrhotic with anasarca and ascites. She is not moj-dsvbgta-vpvvabjsi type II diabetic. In summary patient is a 68-year-old female who presents to the emergency department for evaluation of dyspnea and low blood sugar. Patient is hemodynamically stable upon arrival, hypothermic 94.8 however her Yarelis Coma Score is currently 13 and she appears lethargic. Physical exam shows a morbidly obese, with a BMI of 42, 68-year-old female although slightly lethargic does not appear to be in acute distress. Auscultation of breath sounds reveals significantly diminished breath sounds at the right base with some rales, normal heart sounds no abdominal pain on palpation with distant but present bowel sounds. Differential diagnosis includes therapeutic misadventure, ACS, CHF, infection, PE etc. Initial workup will be conducted with hematologic labs plain film chest x-ray CT scan PE protocol CT scan abdomen pelvis urinalysis.. Initial interventions include DuoNeb and Decadron, D50 for a fingerstick blood sugar of 45 on arrival. Initial workup reviewed by me shows a normal white count with no shift, venous blood gas with a pH of 7.41 with a venous lactic acid of 2.4, chronic kidney disease with creatinine of 1.4 and NT proBNP of 8260 which is significantly elevated from October which was 5270 a bland urinalysis and my informal interpretation of her CT scan shows significant pleural effusion with compressive atelectasis of the right lower lobe significantly progressed since imaging that I reviewed in October, anasarca, significant ascites, signs of hepatic cirrhosis as well as a left-sided pleural effusion.. Upon repeat evaluation patient responded to resuscitation and is now mentating with a Yarelis Coma Score 15 although she remains hypothermic she is being rewarmed, she is still requiring oxygen. Given that she has a history of heart failure and cirrhosis and unsure whether this represents CHF or hepatic hydrothorax although I favor the latter. Given this I had interactive discussion with Dr. Jacome about patient management and she will be admitted for Dr. Ortiz for further evaluation and care. Given her radiographic findings I gave her a dose of Lasix and ordered a Saravia insertion for accurate output. (above as per ER physician) Further to above history, patient states she became ill about a week ago with fever, cough, congestion, nausea and vomiting. She also had body aches and chills. She did not go to the doctor as she felt she would get better with time. She continued to feel poorly and became very lethargic. She was recently admitted at [facility] due to GI hemorrhage and cirrhosis. She was referred to Dr. Marcelo but has not seen him yet. [facility] Disclaimer: The information contained in this section may have been updated after the patient was seen, as this information can be updated by other users. Medical History (Updated 12/13/23 @ 10:28 by Gena Hinojosa APRN) Hypoglycemia associated with type 2 diabetes mellitus Ascites Anasarca Pleural effusion A-fib Elevated brain natriuretic peptide (BNP) level LORE (acute kidney injury) Acute on chronic HFrEF (heart failure with reduced ejection fraction) Cirrhosis BMI 39.0-39.9,adult Non morbid obesity Esophageal stricture Chronic low back pain Asthma-COPD overlap syndrome Osteoarthritis of both knees Irritable bowel syndrome with diarrhea HFrEF (heart failure with reduced ejection fraction) Major depressive disorder Allergic rhinitis CHF (congestive heart failure) Atrial fibrillation COPD (chronic obstructive pulmonary disease) Hypothyroid Hyperlipidemia HTN (hypertension) Surgical History S/P dilatation of esophageal stricture History of right oophorectomy History of cholecystectomy History of tubal ligation Family History A-fib Family/Other Breast cancer Family/Other Emphysema lung Family/Other Social History Smoking Status: Unknown if ever smoked years smoked: 15 how long ago did patient quit smokin quit status: quit date established second hand exposure: No alcohol intake: former counseling given: No substance use type: denies use counseling given: No current occupational status: disabled Travel in the last 8 weeks: Inside the [place] adopted: No caregiver/support person: No foster care: No household members: family and none housing: house lives independently: Yes marital status: number of children: 3 number of grandchildren: 11 education level: high school current occupational exposures/hazards: No caffeine: Yes physical activity: none working smoke detector in home: Yes fire extinguisher in home: No carbon monox detector in home: No firearms in home: No do you feel safe at home: Yes victim of physical abuse: No victim of emotional abuse: No victim of sexual abuse: No would you like helpful sources: No Other Medical History Have you received the Flu Vaccine for this season: Yes Have you received the Pneumonia Vaccine: Yes Review of Systems Constitutional Constitutional: Reports body ache(s), Reports chills, Reports fatigue, Reports fever(s), Reports headache(s) and Reports weakness Eyes Eyes: Denies blurry vision and Denies diplopia ENT Ears, Nose, Mouth, and Throat: Reports dizziness, Reports headache(s), Reports nasal congestion and Reports sore throat *Cardiovascular Cardiovascular: Denies chest pain, Reports dyspnea, Reports leg edema and Reports lightheadedness *Respiratory Respiratory: Reports chest congestion, Reports cough, Reports dyspnea and Denies wheezing *Gastrointestinal Gastrointestinal: Reports abdominal pain, Denies loose stools, Reports nausea and Reports vomiting *Genitourinary Genitourinary: Denies difficulty voiding and Denies dysuria *Musculoskeletal Musculoskeletal: Reports myalgias *Neurologic Neurologic: Reports dizziness, Reports headache(s) and Reports weakness Endocrine Endocrine: Reports fatigue Allergic/Immunologic Allergic/Immunologic: Denies wheezing Meds Home Medications and Allergies Home Medications ?Medication ?Instructions ?Recorded ?Confirmed ?Type montelukast 10 mg tablet 10 mg PO PM 12/27/17 12/13/23 History fluticasone 250 mcg-salmeterol 50 1 inh inhalation BID 12/04/18 12/13/23 History mcg/dose blistr powdr for inhalation multivitamin 1 tab PO DAILY 04/28/20 12/13/23 History liraglutide 0.6 mg/0.1 mL (18 mg/3 1.8 mg SQ DAILY 06/03/20 12/13/23 History mL) subcutaneous pen injector rosuvastatin 10 mg tablet 10 mg PO HS 01/20/23 12/13/23 History furosemide 20 mg tablet 20 mg PO DAILY 03/10/23 12/13/23 History sacubitril 24 mg-valsartan 26 mg 1 tab PO BID 03/10/23 12/13/23 History tablet (Entresto) albuterol sulfate 90 mcg/actuation 2 puff inhalation QIDP PRN 11/15/23 12/13/23 History aerosol inhaler Shortness Of Breath empagliflozin 10 mg tablet 10 mg PO DAILY 11/15/23 12/13/23 History (Jardiance) levothyroxine 137 mcg tablet 137 mcg PO DAILY 11/15/23 12/13/23 History metoprolol succinate 25 mg 25 mg PO DAILY 11/15/23 12/13/23 History tablet,extended release 24 hr potassium chloride 10 mEq 10 meq PO BID 11/15/23 12/13/23 History capsule,extended release desvenlafaxine succinate 100 mg 100 mg PO DAILY 12/13/23 12/13/23 History tablet,extended release 24 hr rivaroxaban 15 mg tablet (Xarelto) 15 mg PO QPMWITHMEAL 12/13/23 12/13/23 History New Prescriptions to Start Prescriptions: Allergies Allergy/AdvReac Type Severity Reaction Status Date / Time naproxen [From ALEVE] Allergy Intermediate S-SWELLS-OR Verified 07/16/23 15:16 AL/THROAT oxytetracycline Allergy Intermediate Verified 07/16/23 15:16 [From TERRAMYCIN] tetracycline [TETRACYCLINE] Allergy Intermediate NA-SEDATION Verified 07/16/23 15:16 Exam Data for Last 24 hours Vital signs and Labs for Last 24 Hours: Temp Pulse Resp BP Pulse Ox O2 Del Method O2 Flow Rate 98.8 F 94 H 10 L 101/73 L 100 Nasal Cannula 2 12/13/23 07:56 12/13/23 06:00 12/13/23 06:00 12/13/23 06:00 12/13/23 06:00 12/13/23 06:00 12/13/23 06:00 FiO2 2 12/13/23 02:00 Laboratory Results - last 24 hr 12/12/23 20:25: WBC 7.1, RBC 4.15 L, Hgb 11.1 L, Hct 36.3 L, MCV 87.4, MCH 26.6 L, MCHC 30.5 L, RDW 25.1 H*, Plt Count 253, MPV 9.0, Neut % (Auto) 74.1, Lymph % (Auto) 15.4, [place] % (Auto) 10.0 H, Eos % (Auto) 0.3, Baso % (Auto) 0.3, Neut # (Auto) 5.2, Lymph # (Auto) 1.1, [place] # (Auto) 0.7, Eos # (Auto) 0.0, Baso # (Auto) 0.0, Sodium 136, Potassium 3.5, Chloride 102, Carbon Dioxide 25, Anion Gap 12.5, BUN 21 H, Creatinine 1.40 H, Estimated Creat Clear 31, Estimated GFR 38 L, Est GFR ( Amer) 45 L, Glucose 33 L*, Hemoglobin A1c 5.6, Calcium 8.6, Phosphorus 3.7, Magnesium 1.7, Total Bilirubin 1.2, AST 38 H, ALT 13, Alkaline Phosphatase 99, NT-Pro-B Natriuret Pep 8260 H, Total Protein 7.5, Albumin 3.8, Globulin 3.7 H, Albumin/Globulin Ratio 1.0 L, Lipase 87, Acetone Level None detected 12/12/23 20:36: VBG pH 7.41, VBG pCO2 41.1, VBG pO2 163.4 H, VBG HCO3 25.5, VBG Total CO2 26.7, VBG O2 Saturation 99.5 H, VBG Base Excess 0.8, VBG Lactic Acid 2.4 H 12/12/23 21:31: Urine Color Yellow, Urine Appearance Clear, Urine pH 6.0, Ur Specific [place] 1.015, Urine Protein Negative, Urine Glucose (UA) 2+, Urine Ketones Negative, Urine Blood Negative, Urine Nitrate Negative, Urine Bilirubin Negative, Urine Urobilinogen 0.2, Ur Leukocyte Esterase Negative, Urine WBC 3-5, Ur Squamous Epith Cells 3-5, Urine Bacteria 1+, Hyaline Casts 5-10, Urine Mucus 1+ 12/12/23 21:39: HIV 1&2 Antibody Rapid Nonreactive 12/12/23 23:05: PT 15.8 H, INR 1.47 H 12/12/23 23:06: POC Glucose 87 12/13/23 00:03: POC Glucose 89 12/13/23 01:09: Lactate 1.1 I & O for Last 24 hours: Intake & Output 12/10/23 12/11/23 12/12/23 12/13/23 11:59 11:59 11:59 11:59 Intake Total 425 / 425 Output Total 1300 / 1300 Balance -875 / -875 Weight 229 lb 15.991 oz Constitutional Constitutional: no acute distress *Routine HEENT Exam Head: Present normocephalic and atraumatic Eye: Present EOMI and PERRL ENT: Present mucous membranes dry *Routine Neck Exam Neck: Present supple and full ROM *Routine Respiratory Exam Respiratory: Present CTA bilaterally *Routine Cardiovascular Exam Cardiovascular: Present RRR *Routine Abdominal Exam Abdominal: Present soft, normoactive bowel sounds, tenderness (diffuse) and distended *Routine Rectal Exam Rectal:: deferred *Routine Genitalia Exam Genitalia:: deferred *Routine Extremities Exam Extremities: Absent cyanosis, clubbing or edema *Routine Skin Exam Skin: Present intact; Absent erythema *Routine Neurological Exam Neurological: Present alert and oriented X3 H&P: Result Impressions CXR - Severe cardiomegaly and mild pulmonary edema. Likely CHF. Abdominal/Pelvic CT 1. Increasing thoracic ascites. Fkoffzfg-ul-rwcvu right pleural effusion 2. Increased small ascites. Stable moderate anasarca. 3. Cirrhotic liver. 4. Chronic decreased disc space height through the lumbar spine unchanged from previous exam. Chest CTA 1. Severe cardiomegaly and likely congestive heart failure. 2. No visible acute pulmonary embolus or aortic dissection 3. Large right pleural effusion maybe related to congestive heart failure or thoracic ascites. Assessment and Plan *Assessment and plan (1) Hypoglycemia associated with type 2 diabetes mellitus: Status: Acute Category: Medical Code(s): E11.649 - Type 2 diabetes mellitus with hypoglycemia without coma (2) Compression atelectasis: Status: Acute Category: Medical Code(s): J98.11 - Atelectasis (3) Acute exacerbation of CHF (congestive heart failure): Status: Acute Qualifiers: Heart failure type: unspecified Qualified Code(s): I50.9 - Heart failure, unspecified Category: Medical Code(s): I50.9 - Heart failure, unspecified (4) Ascites: Status: Acute Category: Medical Code(s): R18.8 - Other ascites (5) Anasarca: Status: Acute Category: Medical Code(s): R60.1 - Generalized edema (6) Pleural effusion: Status: Acute Category: Medical Code(s): J90 - Pleural effusion, not elsewhere classified (7) Cirrhosis: Status: Acute Category: Medical Code(s): K74.60 - Unspecified cirrhosis of liver (8) A-fib: Status: Acute Category: Medical Code(s): I48.91 - Unspecified atrial fibrillation (9) Elevated lactic acid level: Status: Acute Category: Medical Code(s): R79.89 - Other specified abnormal findings of blood chemistry (10) HTN (hypertension): Status: Chronic Qualifiers: Hypertension type: essential hypertension Qualified Code(s): I10 - Essential (primary) hypertension Category: Medical Code(s): I10 - Essential (primary) hypertension (11) COPD (chronic obstructive pulmonary disease): Status: Chronic Qualifiers: COPD type: unspecified COPD Qualified Code(s): J44.9 - Chronic obstructive pulmonary disease, unspecified Category: Medical Code(s): J44.9 - Chronic obstructive pulmonary disease, unspecified (12) Hypothyroid: Status: Chronic Qualifiers: Hypothyroidism type: unspecified Qualified Code(s): E03.9 - Hypothyroidism, unspecified Category: Medical Code(s): E03.9 - Hypothyroidism, unspecified (13) Hyperlipidemia: Status: Chronic Qualifiers: Hyperlipidemia type: mixed hyperlipidemia Qualified Code(s): E78.2 - Mixed hyperlipidemia Category: Medical Code(s): E78.5 - Hyperlipidemia, unspecified Plan Patient has been given lasix and cardiology and pulmonology have been consulted. GI is not here on Fridays, so they were unable to consult. Patient does feel better at this time. She feels the lasix has helped and her glucose has improved. She is much more awake and alert. Will check a respiratory panel as she has been sick for 1 week. Will discuss further care with Dr. Ortiz. Dr. Ortiz entry - Saw patient, agree with above note. Cardiology note reviewed, Prelim echo report shows EF of 20-25%, continue diuresis today, plan to resume meds for CHF over the next few days.
[2023-12-13 08:08] LABS: POC Glucose,Bedside 94 (70-110)
[2023-12-13 08:23] LABS: Adenovirus,PCR Not Detected (NotDetected); Bordetella Pertussis Not Detected (NotDetected); Chlamydophila Pneumoniae, PCR Not Detected (NotDetected); Coronavirus 19, PCR Not Detected (NotDetected); Coronavirus 229E Not Detected (NotDetected); Coronavirus NL63 Not Detected (NotDetected); Coronavirus OC43 Not Detected (NotDetected); Coronovirus HKU1,PCR Not Detected (NotDetected); Human Metapneumovirus Not Detected (NotDetected); Influenza A, PCR Not Detected (NotDetected); Influenza AH1, 2009 Not Detected (NotDetected); Influenza AH1, PCR Not Detected (NotDetected); Influenza AH3,PCR Not Detected (NotDetected); Influenza B, PCR Not Detected (NotDetected); Mycoplasma Pneumoniae, PCR Not Detected (NotDetected); Parainfluenza 1, PCR Not Detected (NotDetected); Parainfluenza 2, PCR Not Detected (NotDetected); Parainfluenza 3, PCR Not Detected (NotDetected); Parainfluenza 4, PCR Not Detected (NotDetected); Respiratory Syncytial Virus Not Detected (NotDetected); Rhinovirus/Enterovirus Not Detected (NotDetected)
--- NOTE | 2023-12-13 08:41 | CA_ITS ---
APPROVED REPORT EXAM: Comprehensive 2D, Doppler, and color-flow Echocardiogram [employer] Installer: Kayla Dennis RVT Ht: 5 ft 1 in Wt: 229lbs BSA: 2.00 BP: 101/73 mmHg Indications: CM EF OF 15-20% ON 12/17/22,A-FIB,COPD,DYSPENA,HTN,HLD,DM,CHF Echo Enhancing Agent Indication: Endocardial border delineation Agent(s) / Amount(s) Used: Definity 2 cc M-Mode Dimensions RVDd 3.38 cm (0.9-2.6) LA Diam 5.44 cm (1.9-4.0) LVDd 6.15 cm (3.5-5.7) LVDs 5.12 cm (3.5-5.7) IVSd 0.80 cm (0.6-1.1) PWd 0.42 cm (0.6-1.1) EF (Teich) 34.40% FS 16.70% EDV (Teich) 190.40 mL ESV (Teich) 124.90 mL Aortic Valve AO Peak GR. 5.40 mmHg Pulmonary Valve PV Peak Velocity 99.0 (50-150 cm/s) Tricuspid Valve TR P. Velocity 319.00 cm/s RAP Estimate 10.00 mmHg RVSP 50.60 mmHg Left Ventricle The left ventricle is severely dilated. Left ventricular systolic function is severely decreased. There is increased LV wall thickness. There is severe global hypokinesis present. There is asynchronous septum present. Septal flattening is also noted, consistent with elevated right-sided pressures. Diastolic function is indeterminate due to atrial fibrillation. LVEF is 15%. Right Ventricle Right ventricle is severely dilated. Right ventricle is severely hypokinetic. Atria Left atrium is mildly dilated. Right atrium is severely dilated. There is no Doppler evidence of interatrial shunt. Aortic Valve The aortic valve is mildly thickened. There is no aortic valvular stenosis. Mild aortic regurgitation. Mitral Valve The mitral valve leaflets are mildly thickened. The posterior MV leaflet appears tethered and restricted in motion. No evidence of mitral valve stenosis. Moderate mitral regurgitation (Ashly class IIIB). The MR jet is eccentric and posteriorly directed. Tricuspid Valve The tricuspid valve leaflets are thin and pliable. Severe tricuspid regurgitation. RVSP is 50-55 mmHg. Pulmonic Valve The pulmonary valve is normal in structure. Mild pulmonic regurgitation. Great Vessels The aortic root is normal in size. The ascending aorta is not well-visualized. The IVC is dilated. Pericardium There is no pericardial effusion. Pleural effusions are present. Other Information Study Quality: Fair Conclusion Severe reduction in LV systolic function (LVEF 15%). Asynchronous septum. Septal flattening is also noted, consistent with elevated right-sided pressures. Severe RV dilation with severe reduction in RV function. Biatrial dilation. Severe TR. Tethered posterior MV leaflet with moderate MR (Ashly class IIIB). Mild AI, Mild PI. RVSP is 50-55 mmHg. Pleural effusions. Electronically signed by : Kasey Jones MD 12/14/2023 22:23:42
[2023-12-13 09:30] LABS: POC Glucose,Bedside 79 (70-110)
[2023-12-13 09:30] LABS: POC Glucose,Bedside 64 (70-110)
[2023-12-13 09:30] LABS: POC Glucose,Bedside 80 (70-110)
[2023-12-13 09:30] LABS: POC Glucose,Bedside 74 (70-110)
[2023-12-13 09:30] LABS: POC Glucose,Bedside 67 (70-110)
[2023-12-13 09:30] LABS: POC Glucose,Bedside 67 (70-110)
[2023-12-13] MEDS: FUROSEMIDE 100MG/10ML VIAL 80 MG IV ×2 (09:30→16:48)
[2023-12-13] MEDS: SPIRONOLACTONE 25MG TABLET 25 MG PO (09:30)
[2023-12-13] MEDS: DEFINITY US ECHO CONTRAST 2ML INJ 2 MG IV (09:50)
[2023-12-13 10:13] LABS: POC Glucose,Bedside 64 (70-110)
--- NOTE | 2023-12-13 10:17 | P.CONS_ITS ---
History of Present Illness History of present illness: Ms. Dunn is a 68-year-old female never smoker, carries a diagnosis of asthma on Advair 250 inhaler with good symptom control at baseline reported history of CHF with reduced EF, asthma COPD overlap syndrome, hypertension, dyslipidemia atrial fibrillation presented to the ER with worsening respiratory distress and pulmonary was called for further evaluation management. [facility] Disclaimer: The information contained in this section may have been updated after the patient was seen, as this information can be updated by other users. Medical History (Updated 12/13/23 @ 12:06 by Katie Gonzalez MD) Asthma Hypoglycemia associated with type 2 diabetes mellitus Ascites Anasarca Pleural effusion A-fib Elevated brain natriuretic peptide (BNP) level LORE (acute kidney injury) Acute on chronic HFrEF (heart failure with reduced ejection fraction) Cirrhosis BMI 39.0-39.9,adult Non morbid obesity Esophageal stricture Chronic low back pain Asthma-COPD overlap syndrome Osteoarthritis of both knees Irritable bowel syndrome with diarrhea HFrEF (heart failure with reduced ejection fraction) Major depressive disorder Allergic rhinitis CHF (congestive heart failure) Atrial fibrillation COPD (chronic obstructive pulmonary disease) Hypothyroid Hyperlipidemia HTN (hypertension) Surgical History S/P dilatation of esophageal stricture History of right oophorectomy History of cholecystectomy History of tubal ligation Family History A-fib Family/Other Breast cancer Family/Other Emphysema lung Family/Other Social History Smoking Status: Unknown if ever smoked years smoked: 15 how long ago did patient quit smokin quit status: quit date established second hand exposure: No alcohol intake: former counseling given: No substance use type: denies use counseling given: No current occupational status: disabled Travel in the last 8 weeks: Inside the [place] adopted: No caregiver/support person: No foster care: No household members: family and none housing: house lives independently: Yes marital status: number of children: 3 number of grandchildren: 11 education level: high school current occupational exposures/hazards: No caffeine: Yes physical activity: none working smoke detector in home: Yes fire extinguisher in home: No carbon monox detector in home: No firearms in home: No do you feel safe at home: Yes victim of physical abuse: No victim of emotional abuse: No victim of sexual abuse: No would you like helpful sources: No Review of Systems Constitutional Constitutional: Reports fatigue and Reports weakness Eyes Eyes: Denies eye discharge, Denies dry eyes, Denies irritation and Denies itchy eyes ENT Ears, Nose, Mouth, and Throat: Denies lip swelling and Denies throat swelling *Cardiovascular Cardiovascular: Reports dyspnea, Reports dyspnea on exertion, Reports leg edema and Reports orthopnea *Respiratory Respiratory: Denies change in phlegm color, Reports chest congestion, Reports cough, Reports dyspnea, Reports dyspnea on exertion, Denies excessive phlegm production, Denies hemoptysis, Denies pain on inspiration, Denies pain with cough and Reports wheezing *Gastrointestinal Gastrointestinal: Denies abdominal pain, Denies belching, Reports bloating and Denies cramping *Musculoskeletal Musculoskeletal: Reports back pain, Reports myalgias and Reports other (No small joint swelling or Pain) *Neurologic Neurologic: Reports weakness Psychiatric Psychiatric: Denies homicidal ideation and Denies suicidal ideation Endocrine Endocrine: Reports fatigue and Denies heat intolerance Hematologic/Lymphatic Hematologic/Lymphatic: Denies easy bleeding and Denies lymphadenopathy Allergic/Immunologic Allergic/Immunologic: Denies itchy eyes, Denies lip swelling, Denies throat swelling and Reports wheezing Pulmonology Exam Inpatient Vital signs and Labs for Last 24 Hours: Temp Pulse Resp BP Pulse Ox O2 Del Method O2 Flow Rate 98.6 F 96 H 20 110/49 L 99 Nasal Cannula 2 12/13/23 08:00 12/13/23 08:00 12/13/23 08:00 12/13/23 08:00 12/13/23 08:00 12/13/23 09:00 12/13/23 09:00 FiO2 2 12/13/23 02:00 Laboratory Results - last 24 hr 12/12/23 20:25: WBC 7.1, RBC 4.15 L, Hgb 11.1 L, Hct 36.3 L, MCV 87.4, MCH 26.6 L, MCHC 30.5 L, RDW 25.1 H*, Plt Count 253, MPV 9.0, Neut % (Auto) 74.1, Lymph % (Auto) 15.4, [place] % (Auto) 10.0 H, Eos % (Auto) 0.3, Baso % (Auto) 0.3, Neut # (Auto) 5.2, Lymph # (Auto) 1.1, [place] # (Auto) 0.7, Eos # (Auto) 0.0, Baso # (Auto) 0.0, Sodium 136, Potassium 3.5, Chloride 102, Carbon Dioxide 25, Anion Gap 12.5, BUN 21 H, Creatinine 1.40 H, Estimated Creat Clear 31, Estimated GFR 38 L, Est GFR ( Amer) 45 L, Glucose 33 L*, Hemoglobin A1c 5.6, Calcium 8.6, Phosphorus 3.7, Magnesium 1.7, Total Bilirubin 1.2, AST 38 H, ALT 13, Alkaline Phosphatase 99, NT-Pro-B Natriuret Pep 8260 H, Total Protein 7.5, Albumin 3.8, Globulin 3.7 H, Albumin/Globulin Ratio 1.0 L, Lipase 87, Acetone Level None detected 12/12/23 20:36: VBG pH 7.41, VBG pCO2 41.1, VBG pO2 163.4 H, VBG HCO3 25.5, VBG Total CO2 26.7, VBG O2 Saturation 99.5 H, VBG Base Excess 0.8, VBG Lactic Acid 2.4 H 12/12/23 21:31: Urine Color Yellow, Urine Appearance Clear, Urine pH 6.0, Ur Specific [place] 1.015, Urine Protein Negative, Urine Glucose (UA) 2+, Urine Ketones Negative, Urine Blood Negative, Urine Nitrate Negative, Urine Bilirubin Negative, Urine Urobilinogen 0.2, Ur Leukocyte Esterase Negative, Urine WBC 3-5, Ur Squamous Epith Cells 3-5, Urine Bacteria 1+, Hyaline Casts 5-10, Urine Mucus 1+ 12/12/23 21:39: HIV 1&2 Antibody Rapid Nonreactive 12/12/23 23:05: PT 15.8 H, INR 1.47 H 12/12/23 23:06: POC Glucose 87 12/13/23 00:03: POC Glucose 89 12/13/23 01:09: Lactate 1.1 12/13/23 01:15: POC Glucose 79 12/13/23 03:15: POC Glucose 74 12/13/23 04:48: POC Glucose 67 L 12/13/23 06:30: POC Glucose 64 L 12/13/23 07:24: POC Glucose 67 L 12/13/23 08:01: POC Glucose 94 12/13/23 08:15: Chlamy pneumoniae PCR Not detected, Adenovirus (PCR) Not detected, B. pertussis DNA (PCR) Not detected, Coronavirus OC43 (PCR) Not detected, Coronavirus HKU1 (PCR) Not detected, Coronavirus 229E (PCR) Not detected, SARS-CoV-2 (PCR) Not detected, Coronavirus NL63 (PCR) Not detected, Human Metapneumovir PCR Not detected, Influenza A (H1) PCR Not detected, Influ A (H1N1/09) PCR Not detected, Influenza A (H3) PCR Not detected, Influenza Type A (PCR) Not detected, Influenza Type B (PCR) Not detected, M. pneumoniae (PCR) Not detected, Parainfluenza 1 (PCR) Not detected, Parainfluenza 2 (PCR) Not detected, Parainfluenza 3 (PCR) Not detected, Parainfluenza 4 (PCR) Not detected, RSV (PCR) Not detected, Entero/Rhino (PCR) Not detected 12/13/23 09:07: POC Glucose 80 12/13/23 10:05: POC Glucose 64 L I & O for Labs for Last 24 Hours: Intake & Output 12/10/23 12/11/23 12/12/23 12/13/23 23:59 23:59 23:59 23:59 Intake Total 535 / 535 Output Total 700 / 700 700 / 700 Balance -700 / -700 -165 / -165 Weight 230 lb 229 lb 15.991 oz Constitutional: Present mild distress Head: Present normocephalic and atraumatic ENT: Present normal exam, normal oropharynx and mucous membranes moist Neck: Present normal inspection and full ROM Respiratory: Present respiratory distress, diminished air movement and able to speak in complete sentences; Absent prolonged expiratory phase or wheezes Cardiac: Present S1/S2, Tachycardia and radial pulses present GI: Present soft and distention; Absent tenderness or guarding Rectal (female): Present deferred (female): Present deferred Skin: Present intact; Absent cyanosis or jaundice Neuro: Present alert, awake and oriented x 3 Extremities: Present normal inspection; Absent clubbing or cyanosis Psychiatric: Present normal affect and cooperative Meds Home Medications and Allergies Home Medications ?Medication ?Instructions ?Recorded ?Confirmed ?Type montelukast 10 mg tablet 10 mg PO PM 12/27/17 12/13/23 History fluticasone 250 mcg-salmeterol 50 1 inh inhalation BID 12/04/18 12/13/23 History mcg/dose blistr powdr for inhalation multivitamin 1 tab PO DAILY 04/28/20 12/13/23 History liraglutide 0.6 mg/0.1 mL (18 mg/3 1.8 mg SQ DAILY 06/03/20 12/13/23 History mL) subcutaneous pen injector rosuvastatin 10 mg tablet 10 mg PO HS 01/20/23 12/13/23 History furosemide 20 mg tablet 20 mg PO DAILY 03/10/23 12/13/23 History sacubitril 24 mg-valsartan 26 mg 1 tab PO BID 03/10/23 12/13/23 History tablet (Entresto) albuterol sulfate 90 mcg/actuation 2 puff inhalation QIDP PRN 11/15/23 12/13/23 History aerosol inhaler Shortness Of Breath empagliflozin 10 mg tablet 10 mg PO DAILY 11/15/23 12/13/23 History (Jardiance) levothyroxine 137 mcg tablet 137 mcg PO DAILY 11/15/23 12/13/23 History metoprolol succinate 25 mg 25 mg PO DAILY 11/15/23 12/13/23 History tablet,extended release 24 hr potassium chloride 10 mEq 10 meq PO BID 11/15/23 12/13/23 History capsule,extended release desvenlafaxine succinate 100 mg 100 mg PO DAILY 12/13/23 12/13/23 History tablet,extended release 24 hr rivaroxaban 15 mg tablet (Xarelto) 15 mg PO QPMWITHMEAL 12/13/23 12/13/23 History New Prescriptions to Start Prescriptions: Allergies Allergy/AdvReac Type Severity Reaction Status Date / Time naproxen [From ALEVE] Allergy Intermediate S-SWELLS-OR Verified 07/16/23 15:16 AL/THROAT oxytetracycline Allergy Intermediate Verified 07/16/23 15:16 [From TERRAMYCIN] tetracycline [TETRACYCLINE] Allergy Intermediate NA-SEDATION Verified 07/16/23 15:16 Results Laboratory Findings 12/12/23 20:25 12/12/23 20:25 PT/INR, D-dimer PT 15.8 seconds (10.1-12.5) H 12/12/23 23:05 INR 1.47 (0.9-1.1) H 12/12/23 23:05 Abnormal lab findings: Abnormal Labs 12/12/23 12/12/23 12/12/23 20:25 20:36 23:05 RBC 4.15 L Hgb 11.1 L Hct 36.3 L MCH 26.6 L MCHC 30.5 L RDW 25.1 H* [place] % (Auto) 10.0 H PT 15.8 H INR 1.47 H VBG pO2 163.4 H VBG O2 Saturation 99.5 H VBG Lactic Acid 2.4 H BUN 21 H Creatinine 1.40 H Estimated GFR 38 L Est GFR ( Amer) 45 L Glucose 33 L* POC Glucose AST 38 H NT-Pro-B Natriuret Pep 8260 H Globulin 3.7 H Albumin/Globulin Ratio 1.0 L 12/13/23 12/13/23 12/13/23 04:48 06:30 07:24 RBC Hgb Hct MCH MCHC RDW [place] % (Auto) PT INR VBG pO2 VBG O2 Saturation VBG Lactic Acid BUN Creatinine Estimated GFR Est GFR ( Amer) Glucose POC Glucose 67 L 64 L 67 L AST NT-Pro-B Natriuret Pep Globulin Albumin/Globulin Ratio 12/13/23 10:05 RBC Hgb Hct MCH MCHC RDW [place] % (Auto) PT INR VBG pO2 VBG O2 Saturation VBG Lactic Acid BUN Creatinine Estimated GFR Est GFR ( Amer) Glucose POC Glucose 64 L AST NT-Pro-B Natriuret Pep Globulin Albumin/Globulin Ratio Assessment and Plan *Assessment and plan (1) Pleural effusion: Status: Acute Category: Medical Code(s): J90 - Pleural effusion, not elsewhere classified (2) Asthma: Status: Acute Category: Medical Code(s): J45.909 - Unspecified asthma, uncomplicated Plan Ms. Current is a 68-year-old female never smoker, carries a diagnosis of asthma on Advair 250 inhaler with good symptom control at baseline reported history of CHF with reduced EF, asthma COPD overlap syndrome, hypertension, dyslipidemia atrial fibrillation presented to the ER with worsening respiratory distress and pulmonary was called for further evaluation management. CTA upon admission no evidence of pulmonary embolism. Right pleural effusion noted with adjavcent atelectasis . No other dense consolidative/airspace changes noted. CT abdomen also showed ascites and patient has a recent diagnosis of liver cirrhosis Afebrile. Hemodynamically stable. Comprehensive respiratory viral PCR panel negative. Patient appeared to be in mild respiratory distress. On 2 L saturating 100%, weaned to room air with saturations maintained at 90% and above. No significant wheezing noted on auscultation with decreased breath sounds left lung martinez. Given patient is not having any severe respiratory distress and oxygen requirements weaned to room air, no emergent need for thoracentesis at this point of time. Recommend to continue diuretic regimen for decopensated liver cirrhosis. Plan: No need for thoracentesis. Recommended replacement for hepatic cirrhosis. Will monitor clinically. On room air saturating 90% and above. Monitor clinically and will reevaluate the need for thoracentesis. Incentive spirometry Advair 250 daily DuoNebs every 6 as needed # Thank you for involving pulmonary in this patient care. Will continue to follow.
--- NOTE | 2023-12-13 10:21 | P.CONCA_ITS ---
History of Present Illness History of Present Illness Consult date: 12/13/23 Requesting physician: Marciano Ortiz Consult reason: shortness of breath Chief complaint: SOA History of present illness: This is a 68-year-old white female who presented to the emergency department with complaints of shortness of breath. The patient states that she had been feeling lethargic and ill for approximately 1 week with fever, cough, congestion, nausea and vomiting. She also had some bodyaches and chills. She states that she did not go to the doctor and felt like it would get better over time. However, she continued to feel poorly and her shortness of breath significantly worsened. She states that it got severe even at rest and that is when she decided to call EMS. Upon arrival the patient was found lethargic with a blood glucose of 65. Upon arrival to the emergency department she was slightly obtunded but could answer all questions and follow all commands. The patient reports that she was just discharged from [facility] approximately 2 weeks ago where she was diagnosed with stage IV liver cirrhosis and ascites. She states that she feels like she has just been going back and forth to the hospital and not really feeling any better. She denies any chest pain or pressure. She states that her shortness of breath is significantly improved since being in the hospital. She is lying flat when I walk in the room without any complaints this morning. She states that she has had some mild bilateral lower extremity edema. She denies any diarrhea. She states at home her shortness of breath was associated with orthopnea. [facility] Disclaimer: The information contained in this section may have been updated after the patient was seen, as this information can be updated by other users. Medical History (Updated 12/13/23 @ 10:28 by Gena Hinojosa APRN) Hypoglycemia associated with type 2 diabetes mellitus Ascites Anasarca Pleural effusion A-fib Elevated brain natriuretic peptide (BNP) level LORE (acute kidney injury) Acute on chronic HFrEF (heart failure with reduced ejection fraction) Cirrhosis BMI 39.0-39.9,adult Non morbid obesity Esophageal stricture Chronic low back pain Asthma-COPD overlap syndrome Osteoarthritis of both knees Irritable bowel syndrome with diarrhea HFrEF (heart failure with reduced ejection fraction) Major depressive disorder Allergic rhinitis CHF (congestive heart failure) Atrial fibrillation COPD (chronic obstructive pulmonary disease) Hypothyroid Hyperlipidemia HTN (hypertension) Surgical History S/P dilatation of esophageal stricture History of right oophorectomy History of cholecystectomy History of tubal ligation Family History A-fib Family/Other Breast cancer Family/Other Emphysema lung Family/Other Social History Smoking Status: Unknown if ever smoked years smoked: 15 how long ago did patient quit smokin quit status: quit date established second hand exposure: No alcohol intake: former counseling given: No substance use type: denies use counseling given: No current occupational status: disabled Travel in the last 8 weeks: Inside the [place] adopted: No caregiver/support person: No foster care: No household members: family and none housing: house lives independently: Yes marital status: number of children: 3 number of grandchildren: 11 education level: high school current occupational exposures/hazards: No caffeine: Yes physical activity: none working smoke detector in home: Yes fire extinguisher in home: No carbon monox detector in home: No firearms in home: No do you feel safe at home: Yes victim of physical abuse: No victim of emotional abuse: No victim of sexual abuse: No would you like helpful sources: No Review of Systems Review of Systems Review of systems:: pertinent systems reviewed and negative unless documented below Constitutional Constitutional: Reports system reviewed and no additional complaints, except as documented, Reports body ache(s), Reports chills, Reports fatigue, Reports fever(s), Reports poor appetite, Reports lethargy, Reports malaise and Reports weakness Eyes Eyes: Reports system reviewed and no additional complaints, except as documented ENT Ears, Nose, Mouth, and Throat: Reports system reviewed and no additional complaints, except as documented and Reports dizziness *Cardiovascular Cardiovascular: Reports system reviewed and no additional complaints, except as documented, Denies chest pain, Reports dyspnea, Reports dyspnea on exertion, Reports edema, Reports leg edema and Reports pedal edema *Respiratory Respiratory: Reports system reviewed and no additional complaints, except as documented, Reports chest congestion, Reports cough, Reports dyspnea, Reports dyspnea on exertion and Reports wheezing *Gastrointestinal Gastrointestinal: Reports system reviewed and no additional complaints, except as documented, Reports nausea and Reports vomiting *Genitourinary Genitourinary: Reports system reviewed and no additional complaints, except as documented *Musculoskeletal Musculoskeletal: Reports system reviewed and no additional complaints, except as documented Integumentary/Breasts Skin/Breast: Reports system reviewed and no additional complaints, except as documented *Neurologic Neurologic: Reports system reviewed and no additional complaints, except as documented, Reports dizziness and Reports weakness Psychiatric Psychiatric: Reports system reviewed and no additional complaints, except as documented and Reports change in appetite Endocrine Endocrine: Reports system reviewed and no additional complaints, except as documented and Reports fatigue Hematologic/Lymphatic Hematologic/Lymphatic: Reports system reviewed and no additional complaints, except as documented Allergic/Immunologic Allergic/Immunologic: Reports system reviewed and no additional complaints, except as documented and Reports wheezing Exam Data for Last 24 hours Vital signs and Labs for Last 24 Hours: Temp Pulse Resp BP Pulse Ox O2 Del Method O2 Flow Rate 98.6 F 96 H 20 110/49 L 99 Nasal Cannula 2 12/13/23 08:00 12/13/23 08:00 12/13/23 08:00 12/13/23 08:00 12/13/23 08:00 12/13/23 09:00 12/13/23 09:00 FiO2 2 12/13/23 02:00 Laboratory Results - last 24 hr 12/12/23 20:25: WBC 7.1, RBC 4.15 L, Hgb 11.1 L, Hct 36.3 L, MCV 87.4, MCH 26.6 L, MCHC 30.5 L, RDW 25.1 H*, Plt Count 253, MPV 9.0, Neut % (Auto) 74.1, Lymph % (Auto) 15.4, Worth % (Auto) 10.0 H, Eos % (Auto) 0.3, Baso % (Auto) 0.3, Neut # (Auto) 5.2, Lymph # (Auto) 1.1, Worth # (Auto) 0.7, Eos # (Auto) 0.0, Baso # (Auto) 0.0, Sodium 136, Potassium 3.5, Chloride 102, Carbon Dioxide 25, Anion Gap 12.5, BUN 21 H, Creatinine 1.40 H, Estimated Creat Clear 31, Estimated GFR 38 L, Est GFR ( Amer) 45 L, Glucose 33 L*, Hemoglobin A1c 5.6, Calcium 8.6, Phosphorus 3.7, Magnesium 1.7, Total Bilirubin 1.2, AST 38 H, ALT 13, Alkaline Phosphatase 99, NT-Pro-B Natriuret Pep 8260 H, Total Protein 7.5, Albumin 3.8, Globulin 3.7 H, Albumin/Globulin Ratio 1.0 L, Lipase 87, Acetone Level None detected 12/12/23 20:36: VBG pH 7.41, VBG pCO2 41.1, VBG pO2 163.4 H, VBG HCO3 25.5, VBG Total CO2 26.7, VBG O2 Saturation 99.5 H, VBG Base Excess 0.8, VBG Lactic Acid 2.4 H 12/12/23 21:31: Urine Color Yellow, Urine Appearance Clear, Urine pH 6.0, Ur Specific [place] 1.015, Urine Protein Negative, Urine Glucose (UA) 2+, Urine Ketones Negative, Urine Blood Negative, Urine Nitrate Negative, Urine Bilirubin Negative, Urine Urobilinogen 0.2, Ur Leukocyte Esterase Negative, Urine WBC 3-5, Ur Squamous Epith Cells 3-5, Urine Bacteria 1+, Hyaline Casts 5-10, Urine Mucus 1+ 12/12/23 21:39: HIV 1&2 Antibody Rapid Nonreactive 12/12/23 23:05: PT 15.8 H, INR 1.47 H 12/12/23 23:06: POC Glucose 87 12/13/23 00:03: POC Glucose 89 12/13/23 01:09: Lactate 1.1 12/13/23 01:15: POC Glucose 79 12/13/23 03:15: POC Glucose 74 12/13/23 04:48: POC Glucose 67 L 12/13/23 06:30: POC Glucose 64 L 12/13/23 07:24: POC Glucose 67 L 12/13/23 08:01: POC Glucose 94 12/13/23 08:15: Chlamy pneumoniae PCR Not detected, Adenovirus (PCR) Not detected, B. pertussis DNA (PCR) Not detected, Coronavirus OC43 (PCR) Not detected, Coronavirus HKU1 (PCR) Not detected, Coronavirus 229E (PCR) Not detected, SARS-CoV-2 (PCR) Not detected, Coronavirus NL63 (PCR) Not detected, Human Metapneumovir PCR Not detected, Influenza A (H1) PCR Not detected, Influ A (H1N1/09) PCR Not detected, Influenza A (H3) PCR Not detected, Influenza Type A (PCR) Not detected, Influenza Type B (PCR) Not detected, M. pneumoniae (PCR) Not detected, Parainfluenza 1 (PCR) Not detected, Parainfluenza 2 (PCR) Not detected, Parainfluenza 3 (PCR) Not detected, Parainfluenza 4 (PCR) Not detected, RSV (PCR) Not detected, Entero/Rhino (PCR) Not detected 12/13/23 09:07: POC Glucose 80 12/13/23 10:05: POC Glucose 64 L I & O for Last 24 hours: Intake & Output 12/10/23 12/11/23 12/12/23 12/13/23 23:59 23:59 23:59 23:59 Intake Total 535 / 535 Output Total 700 / 700 700 / 700 Balance -700 / -700 -165 / -165 Weight 230 lb 229 lb 15.991 oz Constitutional Constitutional: no acute distress and morbidly obese *Routine HEENT Exam Head: Present normocephalic and atraumatic ENT: Present mucous membranes moist *Routine Neck Exam Neck: Present supple, full ROM and normal carotid upstroke; Absent JVD, carotid bruit or lymphadenopathy *Routine Respiratory Exam Respiratory: Present rales, wheezes, able to speak in complete sentences and symmetric chest movement *Routine Cardiovascular Exam Cardiovascular: Present Normal S1, Normal S2 and irregularly irregular; Absent murmur or gallop *Routine Abdominal Exam Abdominal: Present soft, normoactive bowel sounds and distended; Absent tenderness or organomegaly *Routine Extremities Exam Extremities: Present full ROM, pulses intact and normal capillary refill; Absent cyanosis, clubbing or edema *Routine Skin Exam Skin: Present intact and warm; Absent erythema *Routine Neurological Exam Neurological: Present alert, oriented X3 and CN II-XII intact; Absent sensory deficit or motor deficit Routine Psychiatric Exam Psychiatric: Present normal affect Meds Home Medications and Allergies Home Medications ?Medication ?Instructions ?Recorded ?Confirmed ?Type montelukast 10 mg tablet 10 mg PO PM 12/27/17 12/13/23 History fluticasone 250 mcg-salmeterol 50 1 inh inhalation BID 12/04/18 12/13/23 History mcg/dose blistr powdr for inhalation multivitamin 1 tab PO DAILY 04/28/20 12/13/23 History liraglutide 0.6 mg/0.1 mL (18 mg/3 1.8 mg SQ DAILY 06/03/20 12/13/23 History mL) subcutaneous pen injector rosuvastatin 10 mg tablet 10 mg PO HS 01/20/23 12/13/23 History furosemide 20 mg tablet 20 mg PO DAILY 03/10/23 12/13/23 History sacubitril 24 mg-valsartan 26 mg 1 tab PO BID 03/10/23 12/13/23 History tablet (Entresto) albuterol sulfate 90 mcg/actuation 2 puff inhalation QIDP PRN 11/15/23 12/13/23 History aerosol inhaler Shortness Of Breath empagliflozin 10 mg tablet 10 mg PO DAILY 11/15/23 12/13/23 History (Jardiance) levothyroxine 137 mcg tablet 137 mcg PO DAILY 11/15/23 12/13/23 History metoprolol succinate 25 mg 25 mg PO DAILY 11/15/23 12/13/23 History tablet,extended release 24 hr potassium chloride 10 mEq 10 meq PO BID 11/15/23 12/13/23 History capsule,extended release desvenlafaxine succinate 100 mg 100 mg PO DAILY 12/13/23 12/13/23 History tablet,extended release 24 hr rivaroxaban 15 mg tablet (Xarelto) 15 mg PO QPMWITHMEAL 12/13/23 12/13/23 History New Prescriptions to Start Prescriptions: Allergies Allergy/AdvReac Type Severity Reaction Status Date / Time naproxen [From ALEVE] Allergy Intermediate S-SWELLS-OR Verified 07/16/23 15:16 AL/THROAT oxytetracycline Allergy Intermediate Verified 07/16/23 15:16 [From TERRAMYCIN] tetracycline [TETRACYCLINE] Allergy Intermediate NA-SEDATION Verified 07/16/23 15:16 Assessment and Plan *Assessment and plan (1) Acute on chronic HFrEF (heart failure with reduced ejection fraction): Status: Acute Category: Medical Code(s): I50.23 - Acute on chronic systolic (congestive) heart failure (2) Ascites: Status: Acute Qualifiers: Ascites type: other type Qualified Code(s): R18.8 - Other ascites Category: Medical Code(s): R18.8 - Other ascites (3) Anasarca: Status: Acute Category: Medical Code(s): R60.1 - Generalized edema (4) Pleural effusion: Status: Acute Category: Medical Code(s): J90 - Pleural effusion, not elsewhere classified (5) Cirrhosis: Status: Acute Qualifiers: Ascites presence: with ascites Hepatic cirrhosis type: unspecified hepatic cirrhosis Qualified Code(s): K74.60 - Unspecified cirrhosis of liver; R18.8 - Other ascites Category: Medical Code(s): K74.60 - Unspecified cirrhosis of liver (6) Acute on chronic anemia: Status: Acute Category: Medical Code(s): D64.9 - Anemia, unspecified (7) LORE (acute kidney injury): Status: Acute Category: Medical Code(s): N17.9 - Acute kidney failure, unspecified (8) HTN (hypertension): Status: Chronic Qualifiers: Hypertension type: essential hypertension Qualified Code(s): I10 - Essential (primary) hypertension Category: Medical Code(s): I10 - Essential (primary) hypertension (9) Hyperlipidemia: Status: Chronic Qualifiers: Hyperlipidemia type: mixed hyperlipidemia Qualified Code(s): E78.2 - Mixed hyperlipidemia Category: Medical Code(s): E78.5 - Hyperlipidemia, unspecified (10) A-fib: Status: Acute Qualifiers: Atrial fibrillation type: unspecified chronic Qualified Code(s): I48.20 - Chronic atrial fibrillation, unspecified Category: Medical Code(s): I48.91 - Unspecified atrial fibrillation (11) Elevated brain natriuretic peptide (BNP) level: Status: Acute Category: Medical Code(s): R79.89 - Other specified abnormal findings of blood chemistry (12) Hypoglycemia associated with type 2 diabetes mellitus: Status: Acute Category: Medical Code(s): E11.649 - Type 2 diabetes mellitus with hypoglycemia without coma Plan Plan: 1. The patient was admitted to the hospital with an acute on chronic exacerbation of HFrEF and hypoglycemia. The patient has a BNP over 8000 and a CTA of the chest that shows severe cardiomegaly and pulmonary edema with a large right pleural effusion. The patient has a known ejection fraction of 15 to 20%. Will obtain an echocardiogram today to reevaluate her ejection fraction. 2. The patient needs aggressive diuresis with Lasix 80 mg IV twice daily and spironolactone 25 mg p.o. daily over the weekend. 3. The patient reports that she was recently admitted to [facility] and they did stop some of her heart failure medications. It is unclear why these medications were stopped but the patient will need to be restarted on GDMT. 4. Tomorrow 12/14/2023 restart metoprolol XL 25 mg daily, Entresto 24/26 mg p.o. twice daily and Jardiance 10 mg daily once she has been diuresed today. 5. Stop IV fluids as the patient is in acute heart failure. 6. The patient denies any chest pain or pressure. Her troponins are negative. She has a history of normal coronary arteries in December 2022. No plans for invasive left cardiac catheterization at this time. 7. The patient does have an LORE with a creatinine of 1.4. Will continue to follow her renal function with diuresis. 8. The patient does have a large right pleural effusion, pulmonology has been consulted. 9. The patient has been hypoglycemic as well. Will defer management of this to her primary care provider. 10. The patient does have chronic atrial fibrillation. She is currently rate controlled. She is on Xarelto for anticoagulation, but this is currently being held in case she needs to undergo thoracentesis for her pleural effusion. If not then her Xarelto needs to be restarted. 11. Her blood pressure is well-controlled. 12. Her LDL goal is less than 100. Will get a lipid panel. 13. The patient does have chronic anemia which is currently stable. 14. Further recommendations were made pending the patient's response to treatment and the results of her echocardiogram today. Thank you for the opportunity to help participate in the care of this patient. All recommendations and orders are per Dr. Jones.
[2023-12-13] MEDS: DEXTROSE 50% 50ML SYRINGE (CRASH CART) 50 ML IV (10:28)
[2023-12-13 10:50] LABS: POC Glucose,Bedside 110 (70-110)
[2023-12-13 11:20] LABS: POC Glucose,Bedside 128 (70-110)
--- OUTSIDE RECORDS SUMMARY | 2023-12-13 11:22 | XMS_ITS ---
Author Organization [facility] Address [address] [facility] [address] [place] [phone] Care Team Providers Care Compensator Name Role Phone Marciano Ortiz Primary Care Provider [phone] REASON FOR VISIT Message Encounters Encounter Location Date Provider Diagnosis [facility] [address] [facility] [address] [place] [id number] 12/09/2023 Marciano Ortiz PLAN OF TREATMENT Next Appt Details Provider Name:Latosha avitia, 12/18/2023 01:30:00 PM, [address], [address], [place], [id number],
--- OUTSIDE RECORDS SUMMARY | 2023-12-13 11:23 | XMS_ITS | Patient Health Record ---
Author Organization [facility] Address [address] HARISH Pedroza [id number] Care Team Providers Care Hair Designer Name Role Phone Diana Marciano Primary Care Provider Latosha Huynh Unavailable [phone] ALLERGIES Allergen (clinical drug ingredient) Drug/Non Drug Allergy documented on EMR Reaction Allergy Type Onset Date Status naproxen Aleve Unknown Drug Allergy Active polymyxin B Polymyxin B Unknown Drug Allergy 02/06/2018 Ac tive tetracycline Tetracycline Unknown Drug Allergy A ctive RESULTS Component Value Reference Range Notes CBC Venipuncture (in house) Reviewed date:11/27/2023 03:13:19 PM Interpretation: Performing Lab: Notes/Report: wbc 7.1 3.5 - 10 lymph 13.2% 15 - 50 mid 5.0% 2 - 15 gran 81.8% 35 - 80 rbc 3.35 3.5 - 5.5 hgb 8.6 11.5 - 16.5 hct 28.1 35 - 55 mcv 83.9 75 - 100 mch 25.8 25 - 35 mchc 30.7 31 - 38 platlet 169 100 - 400 P-Comprehensive Metabolic Pa abhinav (CMP) Reviewed date:11/28/2023 03:57:16 PM Interpretation:Cl 96, gluc 111, creat 1.33, gfr 44 Performing Lab: Notes/Report: Test performed by [facility] [employer] , [address], [place] [address] Babak Giordano MD, Licensing Engineer CLIA: [id number] Sodium 137 135-145 mmol/L Potassium 3.8 3.5-5.3 mmol/L Chloride 96 97-108 mmol/L CO2 30 22-32 mmol/L Glucose 111 65-99 mg/dL BUN 16 8-23 mg/dL Creatinine 1.33 0.50-1.00 mg/dL Calcium 8.9 8.6-10.4 mg/dL eGFR by Creatinine 44 >59 mL/min/1.73m2 Protein 6.8 6.0-8.3 g/dL Albumin 3.7 3.5-5.3 g/dL Alkaline Phosphatase 87 35-121 IU/L ALT (SGPT) 8 <5-47 IU/L AST (SGOT) 13 <5-40 IU/L Bilirubin, Total 0.8 <0.2-1.2 mg/dL A/G Ratio 1.2 1.1-2.5 P-T4 Free (thyroxine) Reviewed date:11/28/2023 03:57:16 PM Interpretation:Normal Performing Lab: Notes/Report: Test performed by [facility] [address] [place] [address] , [place] [address] Babak Giordano MD, Licensing Engineer CLIA: [id number] Thyroxine Free (free T4) 1.16 0.86-1.76 ng/dL P-Magnesium Reviewed date:11/28/2023 03:57:16 PM Interpretation:Normal Performing Lab: Notes/Report: Test performed by [facility] [address] , [place] [address] Babak Giordano MD, Licensing Engineer CLIA: [id number] Magnesium 1.7 1.6-2.4 mg/dL P-TSH reflex to FT4 Reviewed date:11/28/2023 03:57:16 PM Interpretation:18.40 Performing Lab: Notes/Report: Test performed by [facility] [address] [place] [address] , [address], [place] [address] Babak Giordano MD, Licensing Engineer CLIA: [id number] TSH reflex to FT4 18.40 0.43-5.25 mU/L proBrain Natriuretic Peptide Reviewed date:11/28/2023 03:57:16 PM Interpretation:71422 Performing Lab: Notes/Report: Test performed by [facility] [address] [place] [address] , [address], [place] [address] Babak Giordano MD, Licensing Engineer CLIA: [id number] proBrain Natriuretic Peptide 36696 <300 pg/mL Please note the updated reference range values which are stratified by age. Positive >900 pg/mL Indeterminate 300-900 pg/mL Negative <300 pg/mL H-COVIDPANEL (Not yet review ed by provider) Interpretation:Negative Performing Lab: Notes/Report: No Is this the 1st COVID test for the patient? Unknown Does the patient have COVID symptoms? 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 N Is patient currently hospitalized? Yes Is patient currently in ICU? Yes Date of Symptom onset Is patient a resident in a congregate care setting? No ADENOQIA Not Detected NotDetected CORONAHKU1 Not Detected NotDetected UOZUHCUL09 Not Detected NotDetected [id number] Not Detected NotDetected RDKCXKK12 Not Detected NotDetected METAPNEUMO Not Detected NotDetected RHINOENTER Not Detected NotDetected INFLUAPCR Not Detected NotDetected FLUAH1 Not Detected NotDetected [id number] Not Detected NotDetected INFLUAH3 Not Detected NotDetected INFLUB Not Detected NotDetected PARAINFLU1 Not Detected NotDetected PARAINFLU2 Not Detected NotDetected PARAINFLU3 Not Detected NotDetected PARAINFLU 4 Not Detected NotDetected RSVPCR Not Detected NotDetected COVIDHMH Not Detected NotDetected Effective 10/11/20, Positive covid results will no longer be called to the ordering physician. Infection control and the physician?s office will continue to report positive covid results to the local Health Department as required. This assay is for in vitro diagnostic use under FDA Emergency Use Authorization only. Negative results do not preclude infection with SARS CoV 2 virus and should not be the sole basis of a patient treatment/management or public health decision. Follow up testing should be performed according to the current CDC recommendations. BORDPERT Not Detected NotDetected CHLAMYDPNEUM Not Detected NotDetected MYCOPLASM Not Detected NotDetected P-Culture, Urine Reviewed date:07/08/2023 11:41:04 PM Interpretation:No Significant Growth Performing Lab: Notes/Report: Test performed by [facility]0 [facility] , [address], [place] [address] Babak Giordano MD, Licensing Engineer CLIA: [id number] Specimen Source Urine - Void Culture, Urine See Below Final Report : No Significant Growth H-Culture, Blood Reviewed date:03/26/2023 08:28:38 AM Interpretation: Performing Lab: Notes/Report: Comment: Draw from PICC line CUBLD Blood Culture, Routine Final report 03/26/23 CUBLD Result 1 CUBLD No aerobic or anaerobic growth in five days. CUBLD CUBLD Blood Culture, Routine Preliminary report 03/22/23 CUBLD Result 1 CUBLD No growth in 48 hours CUBLD CUBLD Blood Culture, Routine Preliminary report 03/21/23 CUBLD Result 1 CUBLD No growth in 24 hours. [facility] Disclaimer [facility] The Previous Result is listed for the most recent test CUBLD performed by [facility] in the past 5 years where there is CUBLD sufficient patient demographic data to CUBLD match the result to the patient. Results from certain tests CUBLD are excluded from th e Previous Result display. [facility] Performing Labs [facility] 01: - [facility] [place], [address] [place] [id number] Dir: Glynn Miller, PhD DRU For Inquiries, the physician may contact Branch: DRU [phone] Lab: [phone] H-BMP Reviewed date:03/18/2023 10:28:59 AM Interpretation: Performing Lab: Notes/Report: NA 132 136-145 mmol/L K 5.0 3.5-5.1 mmoL/L CL 99 98-107 mmol/L CO2 25 22.0-30.0 mmol/L GAP 13.0 5-15 mEq/L BUN 41 7-17 mg/dl CREATT 1.60 0.52-1.04 mg/dl CRCLE 26 50-200 mL/min GFRAA 39 >60 ML/MIN EGFR 32 >60 ml/min GLU 234 74-100 mg/dl CA 8.8 8.4-10.2 mg/dl H-CBC Reviewed date:03/18/2023 10:28:59 AM Interpretation: Performing Lab: Notes/Report: WBC 13.7 4.8-10.8 K/mm3 RBC 3.17 4.20-5.40 M/mm3 HGB 10.3 12.2-16.2 g/dL HCT 31.0 37.0-47.0 % MCV 97.8 81-99 fl MCH 32.4 27.0-31.2 pg MCHC 33.1 31.8-35.4 g/dL RDW 16.2 11.5-17.5 % PLT 293 142-424 K/mm3 Delta: 230 on 03/16/23-646 MPV 8.9 7.4-10.4 fl NE% 76.9 37.0-80.0 % LY% 16.2 10-50 % MO% 4.2 1.7-9.3 % EO% 2.2 0.1-12.0 % BA% 0.5 0.1-2.0 % NE# 10.5 1.8-7.8 K/mm3 LY# 2.2 0.7-4.5 K/mm3 MO# 0.6 0.1-1.0 K/mm3 EO# 0.3 0.0-0.4 K/mm3 BA# 0.1 0-0.2 K/mm3 H-BMP Reviewed date:03/18/2023 10:28:59 AM Interpretation: Performing Lab: Notes/Report: NA 132 136-145 mmol/L K 4.4 3.5-5.1 mmoL/L CL 102 98-107 mmol/L CO2 23 22.0-30.0 mmol/L GAP 11.4 5-15 mEq/L BUN 39 7-17 mg/dl CREATT 1.60 0.52-1.04 mg/dl CRCLE 26 50-200 mL/min GFRAA 39 >60 ML/MIN EGFR 32 >60 ml/min GLU 215 74-100 mg/dl CA 8.5 8.4-10.2 mg/dl H-DIFF Reviewed date:03/18/2023 10:28:59 AM Interpretation: Performing Lab: Notes/Report: ABHI MANUAL DIFFERENTIAL MANUAL DIFF TCC 100 NEUT%M 75 42-76 % LYMPH%M 17 10-50 % MONO%M 8 2-9 % PLTE Normal RM Normal H-CBC Reviewed date:03/18/2023 10:28:59 AM Interpretation: Performing Lab: Notes/Report: WBC 16.7 4.8-10.8 K/mm3 RBC 3.32 4.20-5.40 M/mm3 HGB 10.7 12.2-16.2 g/dL HCT 32.1 37.0-47.0 % MCV 96.8 81-99 fl MCH 32.3 27.0-31.2 pg MCHC 33.4 31.8-35.4 g/dL RDW 16.3 11.5-17.5 % PLT 230 142-424 K/mm3 MPV 9.3 7.4-10.4 fl NE% 79.0 37.0-80.0 % LY% 14.1 10-50 % MO% 4.8 1.7-9.3 % EO% 1.6 0.1-12.0 % BA% 0.5 0.1-2.0 % NE# 13.2 1.8-7.8 K/mm3 LY# 2.4 0.7-4.5 K/mm3 MO# 0.8 0.1-1.0 K/mm3 EO# 0.3 0.0-0.4 K/mm3 BA# 0.1 0-0.2 K/mm3 H-BMP Reviewed date:03/14/2023 08:33:48 AM Interpretation: Performing Lab: Notes/Report: NA 130 136-145 mmol/L K 4.2 3.5-5.1 mmoL/L CL 104 98-107 mmol/L CO2 18 22.0-30.0 mmol/L GAP 12.2 5-15 mEq/L BUN 42 7-17 mg/dl CREATT 1.70 0.52-1.04 mg/dl CRCLE 25 50-200 mL/min GFRAA 36 >60 ML/MIN EGFR 30 >60 ml/min GLU 185 74-100 mg/dl CA 8.0 8.4-10.2 mg/dl H-CBC Reviewed date:03/14/2023 08:33:48 AM Interpretation: Performing Lab: Notes/Report: WBC 14.2 4.8-10.8 K/mm3 Delta: 10.1 o n 03/13/23 RBC 3.66 4.20-5.40 M/mm3 HGB 11.9 12.2-16.2 g/dL HCT 35.7 37.0-47.0 % MCV 97.6 81-99 fl MCH 32.4 27.0-31.2 pg MCHC 33.2 31.8-35.4 g/dL RDW 15.9 11.5-17.5 % PLT 154 142-424 K/mm3 Delta: 105 on 03/13/23 MPV 9.4 7.4-10.4 fl NE% 80.3 37.0-80.0 % LY% 11.3 10-50 % MO% 6.6 1.7-9.3 % EO% 1.5 0.1-12.0 % BA% 0.3 0.1-2.0 % NE# 11.4 1.8-7.8 K/mm3 LY# 1.6 0.7-4.5 K/mm3 MO# 0.9 0.1-1.0 K/mm3 EO# 0.2 0.0-0.4 K/mm3 BA# 0.1 0-0.2 K/mm3 H-BMP Reviewed date:03/13/2023 08:26:25 AM Interpretation: Performing Lab: Notes/Report: NA 129 136-145 mmol/L K 4.0 3.5-5.1 mmoL/L CL 104 98-107 mmol/L CO2 15 22.0-30.0 mmol/L GAP 14.0 5-15 mEq/L BUN 39 7-17 mg/dl CREATT 1.80 0.52-1.04 mg/dl CRCLE 23 50-200 mL/min GFRAA 34 >60 ML/MIN EGFR 28 >60 ml/min GLU 182 74-100 mg/dl CA 7.6 8.4-10.2 mg/dl H-CBC Reviewed date:03/13/2023 08:26:25 AM Interpretation: Performing Lab: Notes/Report: WBC 10.1 4.8-10.8 K/mm3 Delta: 23.1 o n 03/11/23 RBC 3.74 4.20-5.40 M/mm3 HGB 12.2 12.2-16.2 g/dL HCT 36.9 37.0-47.0 % MCV 98.7 81-99 fl MCH 32.5 27.0-31.2 pg MCHC 32.9 31.8-35.4 g/dL RDW 15.9 11.5-17.5 % PLT 105 142-424 K/mm3 MPV 9.3 7.4-10.4 fl NE% 78.7 37.0-80.0 % LY% 12.0 10-50 % MO% 7.2 1.7-9.3 % EO% 1.9 0.1-12.0 % BA% 0.1 0.1-2.0 % NE# 8.0 1.8-7.8 K/mm3 LY# 1.2 0.7-4.5 K/mm3 MO# 0.7 0.1-1.0 K/mm3 EO# 0.2 0.0-0.4 K/mm3 BA# 0.0 0-0.2 K/mm3 Covid test (in house) Reviewed date:04/22/2023 08:25:48 AM Interpretation: Performing Lab: Notes/Report: Result: neg P-Iron Reviewed date:04/19/2023 09:46:00 AM Interpretation:Normal Performing Lab: Notes/Report: Test performed by [facility] [address] [place] [address] , [address], [place] [address] Babak Giordano MD, Licensing Engineer CLIA: [id number] Iron 43 37-145 ug/dL P-Ferritin Reviewed date:04/19/2023 09:46:00 AM Interpretation:Normal Performing Lab: Notes/Report: Test performed by [facility] [address] [place] [address] , [address], [place] [address] Babak Giordano MD, Licensing Engineer CLIA: [id number] Ferritin 190.0 13.0-301.0 ng/mL P-Comprehensive Metabolic Pa abhinav (CMP) Reviewed date:04/19/2023 09:46:00 AM Interpretation:K+ 3.4, Glu 113, Creat 1.24, Egfr 48, A/G 1.1 Performing Lab: Notes/Report: Test performed by [facility] [address] [place] [address] , [address], [place] [address] Babak Giordano MD, Licensing Engineer CLIA: [id number] Sodium 138 135-145 mEq/L Potassium 3.4 3.5-5.3 mEq/L Chloride 99 97-108 mEq/L CO2 26 22-32 mEq/L Glucose 113 65-99 mg/dL BUN 17 8-23 mg/dL Creatinine 1.24 0.50-1.00 mg/dL Calcium 8.9 8.6-10.4 mg/dL eGFR by Creatinine 48 >59 mL/min/1.73m2 Protein 7.5 6.0-8.3 g/dL Albumin 3.9 3.5-5.3 g/dL Alkaline Phosphatase 103 35-121 IU/L ALT (SGPT) 7 <5-47 IU/L AST (SGOT) 11 <5-40 IU/L Bilirubin, Total 0.8 <0.2-1.2 mg/dL A/G Ratio 1.1 1.1-2.5 mg/dL CBC Fingerstick (in house) Reviewed date:04/18/2023 04:28:11 PM Interpretation: Performing Lab: Notes/Report: wbc 9.2 3.5 - 10 lym 20.6 15 - 50 mid 4.9 2 - 15 gran 74.5 35 - 80 rbc 3.51 3.5 - 5.5 hgb 11.3 11.5 - 16.5 hct 33.4 35 - 55 mcv 95.1 75 - 100 mch 32.1 25 - 35 mchc 33.8 31 - 38 plat 134 100 - 400 Influenza Screen (in house) Reviewed date:04/22/2023 08:26:25 AM Interpretation: Performing Lab: Notes/Report: results neg proBrain Natriuretic Peptide Reviewed date:04/05/2023 12:34:42 PM Interpretation:Bnp 1286 Performing Lab: Notes/Report: Test performed by [facility] [address] [place] [address] , [address], [place] [address] Babak Giordano MD, Licensing Engineer CLIA: [id number] proBrain Natriuretic Peptide 1286 <300 pg/mL Please note the updated reference range values which are stratified by age. Positive >900 pg/mL Indeterminate 300-900 pg/mL Negative <300 pg/mL P-Microalbumin/Creatinine, R andom Urine Sample Reviewed date:04/05/2023 12:34:42 PM Interpretation:A/C 79 Performing Lab: Notes/Report: Test performed by [facility] [address] [place], [place] [address] [address], [place] [address] Babak Giordano MD, Licensing Engineer CLIA: [id number] Albumin/Creatinine Ratio, Urine 79 0-30 ug/mg Microalbumin, Urine, Random 5.2 Creatinine, Urine 65.7 P-Iron Reviewed date:04/22/2023 10:47:47 AM Interpretation: Performing Lab: Notes/Report: Iron P-Ferritin Reviewed date:04/22/2023 10:47:09 AM Interpretation: Performing Lab: Notes/Report: Ferritin P-Culture, Urine Reviewed date:04/11/2023 02:25:31 PM Interpretation:No growth Performing Lab: Notes/Report: Test performed by [facility] [address] [place] [address] , [address], [place] [address] Babak Giordano MD, Licensing Engineer CLIA: [id number] Specimen Source Urine - Void Culture, Urine See Below No growth P-Comprehensive Metabolic Pa abhinav (CMP) Reviewed date:04/05/2023 12:34:42 PM Interpretation:Chlor 95, Creat 1.31, Egfr 45, A/G 1.1 Performing Lab: Notes/Report: Test performed by [facility] [address] [place] [address] , [address], [place] [address] Babak Giordano MD, Licensing Engineer CLIA: [id number] Sodium 140 135-145 mEq/L Potassium 3.6 3.5-5.3 mEq/L Chloride 95 97-108 mEq/L CO2 32 22-32 mEq/L Glucose 84 65-99 mg/dL BUN 17 8-23 mg/dL Creatinine 1.31 0.50-1.00 mg/dL Calcium 8.8 8.6-10.4 mg/dL eGFR by Creatinine 45 >59 mL/min/1.73m2 Protein 7.4 6.0-8.3 g/dL Albumin 3.8 3.5-5.3 g/dL Alkaline Phosphatase 98 35-121 IU/L ALT (SGPT) 11 <5-47 IU/L AST (SGOT) 19 <5-40 IU/L Bilirubin, Total 0.5 <0.2-1.2 mg/dL A/G Ratio 1.1 1.1-2.5 mg/dL P-BNP (Brain Natriuretic Pep tide) Reviewed date:04/11/2023 02:13:45 PM Interpretation: Performing Lab: Notes/Report: proBrain Natriuretic Peptide Glycohemoglobin A1c (in hous e) Reviewed date:04/05/2023 12:34:42 PM Interpretation:A1C 8.0% Performing Lab: Notes/Report: A1C 8.0% glycohemoglobin 8.0% 5 - 6.5 % CBC Venipuncture (in house) Reviewed date:04/04/2023 04:50:14 PM Interpretation: Performing Lab: Notes/Report: wbc 9.1 3.5 - 10 lymph 19.4 15 - 50 mid 6.8 2 - 15 gran 73.8 35 - 80 rbc 3.90 3.5 - 5.5 hgb 12.6 11.5 - 16.5 hct 37.3 35 - 55 mcv 95.7 75 - 100 mch 32.3 25 - 35 mchc 33.7 31 - 38 platlet 257 100 - 400 Urinalysis - Inhouse Reviewed date:04/04/2023 04:50:14 PM Interpretation: Performing Lab: Notes/Report: Color/Clarity yellow/clear Leuk 1+ Nitrite neg Urobili 3.2 Protein trace pH 5.5 Blood 2+ Sp. Gr. 1.010 Ketone neg Bili neg Gluc neg bacteria WBC RBC P-TSH Reviewed date:02/07/2023 09:54:39 AM Interpretation:Tsh 0.01 Performing Lab: Notes/Report: Test performed by [facility] [address] [place] [address] , [address], [place] [address] Babak Giordano MD, Licensing Engineer CLIA: [id number] TSH 0.01 0.43-5.25 mU/L P-Lipid Panel Reviewed date:02/07/2023 09:54:39 AM Interpretation:Trigs 179 Performing Lab: Notes/Report: Test performed by [facility] [address] [place] [address] , [place] [id number] Babak Giordano MD, Licensing Engineer CLIA: [id number] Cholesterol 145 <200 mg/dL Triglycerides 179 <150 mg/dL HDL Cholesterol 58 >39 mg/dL Cholesterol / HDL Ratio 2.50 0.00-4.44 Ratio Non-HDL Cholesterol 87 <130 mg/dL LDL Cholesterol (Calculation) 51 <130 mg/dL LDL Cholesterol Levels* Less than 100 mg/dL Optimal 100 to 129 mg/dL Near Optimal/ Above Optimal 130 to 159 mg/dL Borderline High 160 to 189 mg/dL High 190 mg/dL and above Very High * Categories as recommended by the 2004 ATPIII guidelines LDL/HDL Ratio 0.9 <3.3 Ratio LDL Cholesterol Patient History Test Date: 10/31/2022 LDL Results: 35 Units: mg/dL % Change: - ------- Test Date: 01/31/2023 LDL Results: 51 Units: mg/dL % Change: +45% P-Iron Reviewed date:02/07/2023 09:54:39 AM Interpretation:Normal Performing Lab: Notes/Report: Test performed by [facility], [address] , [address], [place] [address] Babak Giordano MD, Licensing Engineer CLIA: [id number] Iron 93 37-145 ug/dL P-T4 Free (thyroxine) Reviewed date:02/07/2023 09:54:39 AM Interpretation:Free T4 1.92 Performing Lab: Notes/Report: Test performed by [facility] [address] [place] [address] , [address], [place] [address] Babak Giordano MD, Licensing Engineer CLIA: [id number] Thyroxine Free (free T4) 1.92 0.86-1.76 ng/dL P-Ferritin Reviewed date:02/07/2023 09:54:39 AM Interpretation:Normal Performing Lab: Notes/Report: Test performed by [facility] [address] , [address], [place] [address] Babak Giordano MD, Licensing Engineer CLIA: [id number] Ferritin 123.0 13.0-301.0 ng/mL P-Comprehensive Metabolic Pa abhinav (CMP) Reviewed date:02/07/2023 09:54:39 AM Interpretation:Glu 165, Creat 1.19, Egfr 50, A/G 1.1 Performing Lab: Notes/Report: Test performed by [facility] [address] [place] [address] , [address], [place] [address] Babak Giordano MD, Licensing Engineer CLIA: [id number] Sodium 139 135-145 mEq/L Potassium 4.9 3.5-5.3 mEq/L Chloride 97 97-108 mEq/L CO2 30 22-32 mEq/L Glucose 165 65-99 mg/dL BUN 22 8-23 mg/dL Creatinine 1.19 0.50-1.00 mg/dL Calcium 9.8 8.6-10.4 mg/dL eGFR by Creatinine 50 >59 mL/min/1.73m2 Protein 7.3 6.0-8.3 g/dL Albumin 3.8 3.5-5.3 g/dL Alkaline Phosphatase 90 35-121 IU/L ALT (SGPT) 13 <5-47 IU/L AST (SGOT) 16 <5-40 IU/L Bilirubin, Total 1.0 <0.2-1.2 mg/dL A/G Ratio 1.1 1.1-2.5 mg/dL P-BNP (Brain Natriuretic Pep tide) Reviewed date:02/07/2023 09:54:39 AM Interpretation:Bnp 1613 Performing Lab: Notes/Report: Test performed by [facility] [address] , [address], [place] [address] Babak Giordano MD, Licensing Engineer CLIA: [id number] proBrain Natriuretic Peptide 1613 <125 pg/mL Glycohemoglobin A1c (in hous e) Reviewed date:02/07/2023 09:54:39 AM Interpretation:A1C 8.8% Performing Lab: Notes/Report: A1C 8.8% glycohemoglobin 8.8% 5 - 6.5 % P-TSH Reviewed date:07/08/2023 11:41:04 PM Interpretation:0.31 - low Performing Lab: Notes/Report: Test performed by [facility] [address] , [place] [address] Babak Giordano MD, Licensing Engineer CLIA: [id number] TSH 0.31 0.43-5.25 mU/L P-T4 Free (thyroxine) Reviewed date:07/08/2023 11:41:04 PM Interpretation:normal Performing Lab: Notes/Report: Test performed by [facility] [address] , [address], [place] [address] Babak Giordano MD, Licensing Engineer CLIA: [id number] Thyroxine Free (free T4) 1.34 0.86-1.76 ng/dL P-Comprehensive Metabolic Pa abhinav (CMP) Reviewed date:07/08/2023 11:41:04 PM Interpretation:glucose 132, Cr 1.48 Performing Lab: Notes/Report: Test performed by [facility] [address] , [address], [place] [address] Babak Giordano MD, Licensing Engineer CLIA: [id number] Sodium 139 135-145 mEq/L Potassium 4.5 3.5-5.3 mEq/L Chloride 99 97-108 mEq/L CO2 28 22-32 mEq/L Glucose 132 65-99 mg/dL BUN 23 8-23 mg/dL Creatinine 1.48 0.50-1.00 mg/dL Calcium 9.3 8.6-10.4 mg/dL eGFR by Creatinine 39 >59 mL/min/1.73m2 Protein 7.1 6.0-8.3 g/dL Albumin 3.8 3.5-5.3 g/dL Alkaline Phosphatase 104 35-121 IU/L ALT (SGPT) 11 <5-47 IU/L AST (SGOT) 15 <5-40 IU/L Bilirubin, Total 0.7 <0.2-1.2 mg/dL A/G Ratio 1.2 1.1-2.5 mg/dL Glycohemoglobin A1c (in hous e) Reviewed date:07/08/2023 11:41:04 PM Interpretation:7.1% Performing Lab: Notes/Report: 7.1% glycohemoglobin 7.1% 5 - 6.5 % CBC Venipuncture (in house) Reviewed date:06/27/2023 04:48:33 PM Interpretation: Performing Lab: Notes/Report: wbc 10.0 3.5 - 10 lymph 16.3 15 - 50 mid 6.4 2 - 15 gran 77.3 35 - 80 rbc 3.60 3.5 - 5.5 hgb 11.6 11.5 - 16.5 hct 35.3 35 - 55 mcv 98.2 75 - 100 mch 32.4 25 - 35 mchc 32.9 31 - 38 platlet 245 100 - 400 Urinalysis - Inhouse Reviewed date:06/27/2023 04:48:25 PM Interpretation: Performing Lab: Notes/Report: Color/Clarity yellow Leuk neg Nitrite neg Urobili 16 Protein neg pH 5.5 Blood tr Sp. Gr. 1.010 Ketone neg Bili neg Gluc neg bacteria WBC RBC Mammogram Reviewed date:08/01/2023 04:38:48 PM Interpretation:Negative; annual f/u Performing Lab: Notes/Report: Negative; annual f/u result Negative Bone density Reviewed date:08/01/2023 04:38:57 PM Interpretation:Normal Performing Lab: Notes/Report: Normal Bone density Negative Bone density Reviewed date:08/01/2023 04:38:57 PM Interpretation:Normal Performing Lab: Notes/Report: Normal Bone density Negative P-Culture, Urine Reviewed date:05/20/2023 08:31:10 AM Interpretation:E. Coli Performing Lab: Notes/Report: Test performed by [facility] [employer] [address] [place] [address] , [address], [place] [address] Babak Giordano MD, Licensing Engineer CLIA: [id number] Specimen Source Urine - Void Culture, Urine See Below See Microbiol ogy Report Escherichia coli 10,000-15,000 CFU/ml Escherichia coli Sensitivity Panel See Below Organism E. coli Antibiotic INTERP Amikacin S Ampicillin S Aztreonam S Cefazolin S Cefepime S Cefoxitin S Ceftazidime S Ceftriaxone S Cefuroxime S Ciprofloxacin S Ertapenem S Gentamicin S Imipenem S Levofloxacin S Meropenem S Nitrofurantoin S Piperacillin/Tazo S Tetracycline S Tobramycin S Trimeth/Sulfa S S=SUSCEPTIBLE I=INTERMEDIATE R=RESISTANT P-Comprehensive Metabolic Pa abhinav (CMP) Reviewed date:05/16/2023 09:16:29 AM Interpretation:Glu 164, Creat 1.48, Egfr 39 Performing Lab: Notes/Report: Test performed by [facility] [address] [place] [address] , [address], [place] [address] Babak Giordano MD, Licensing Engineer CLIA: [id number] Sodium 138 135-145 mEq/L Potassium 3.7 3.5-5.3 mEq/L Chloride 98 97-108 mEq/L CO2 29 22-32 mEq/L Glucose 164 65-99 mg/dL BUN 20 8-23 mg/dL Creatinine 1.48 0.50-1.00 mg/dL Calcium 9.4 8.6-10.4 mg/dL eGFR by Creatinine 39 >59 mL/min/1.73m2 Protein 7.0 6.0-8.3 g/dL Albumin 3.7 3.5-5.3 g/dL Alkaline Phosphatase 95 35-121 IU/L ALT (SGPT) 7 <5-47 IU/L AST (SGOT) 12 <5-40 IU/L Bilirubin, Total 0.4 <0.2-1.2 mg/dL A/G Ratio 1.1 1.1-2.5 mg/dL Urinalysis - Inhouse Reviewed date:05/16/2023 08:16:23 AM Interpretation: Performing Lab: Notes/Report: Color/Clarity straw/clear Leuk 1+ Nitrite neg Urobili 3.2 Protein neg pH 5.0 Blood trace-intact Sp. Gr. <=1.005 Ketone neg Bili neg Gluc 3+ bacteria WBC RBC H-BMP Reviewed date:03/15/2023 08:19:40 AM Interpretation: Performing Lab: Notes/Report: NA 131 136-145 mmol/L K 4.2 3.5-5.1 mmoL/L CL 103 98-107 mmol/L CO2 18 22.0-30.0 mmol/L GAP 14.2 5-15 mEq/L BUN 37 7-17 mg/dl CREATT 1.60 0.52-1.04 mg/dl CRCLE 26 50-200 mL/min GFRAA 39 >60 ML/MIN EGFR 32 >60 ml/min GLU 168 74-100 mg/dl CA 8.5 8.4-10.2 mg/dl H-DIFF Reviewed date:03/15/2023 03:12:43 PM Interpretation: Performing Lab: Notes/Report: ABHI MANUAL DIFFERENTIAL MANUAL DIFF TCC 100 NEUT%M 71 42-76 % BAND% 2.0 0-8 LYMPH%M 4 10-50 % MONO%M 17 2-9 % EOS%M 6 0-3 % PLTE Normal Normal H-CBC Reviewed date:03/15/2023 03:12:43 PM Interpretation: Performing Lab: Notes/Report: WBC 17.4 4.8-10.8 K/mm3 RBC 3.48 4.20-5.40 M/mm3 HGB 11.3 12.2-16.2 g/dL HCT 33.7 37.0-47.0 % MCV 96.7 81-99 fl MCH 32.5 27.0-31.2 pg MCHC 33.6 31.8-35.4 g/dL RDW 16.1 11.5-17.5 % PLT 193 142-424 K/mm3 Delta: 154 on 03/14/23 MPV 9.0 7.4-10.4 fl NE% 77.7 37.0-80.0 % LY% 12.9 10-50 % MO% 7.1 1.7-9.3 % EO% 1.8 0.1-12.0 % BA% 0.4 0.1-2.0 % NE# 13.5 1.8-7.8 K/mm3 LY# 2.2 0.7-4.5 K/mm3 MO# 1.2 0.1-1.0 K/mm3 EO# 0.3 0.0-0.4 K/mm3 BA# 0.1 0-0.2 K/mm3 H-Magnesium Reviewed date:03/11/2023 06:32:07 PM Interpretation: Performing Lab: Notes/Report: MG 1.9 1.6-2.3 mg/dl H-CMP Reviewed date:03/11/2023 08:25:54 AM Interpretation: Performing Lab: Notes/Report: NA 134 136-145 mmol/L K 4.5 3.5-5.1 mmoL/L Delta: 3.5 on 03/10/23 CL 101 98-107 mmol/L CO2 20 22.0-30.0 mmol/L GAP 17.5 5-15 mEq/L BUN 41 7-17 mg/dl CREATT 2.00 0.52-1.04 mg/dl CRCLE 42 50-200 mL/min GFRAA 30 >60 ML/MIN EGFR 25 >60 ml/min GLU 210 74-100 mg/dl Delta: 153 on 03/10/23 CA 8.0 8.4-10.2 mg/dl BILIT 1.2 0.2-1.3 mg/dl AST 39 14-36 U/L ALT 24 12-78 U/L TP 7.4 6.3-8.2 g/dl ALB 3.2 3.5-5.0 g/dl GLOB 4.2 1.3-3.2 g/dL AGRATIO 0.8 1.1-1.8 ALP 116 38-126 U/L H-DIFF Reviewed date:03/11/2023 06:32:07 PM Interpretation: Performing Lab: Notes/Report: ABHI MANUAL DIFFERENTIAL MANUAL DIFF TCC 100 NEUT%M 89 42-76 % LYMPH%M 5 10-50 % MONO%M 6 2-9 % PLTE Slight Decrease RM Normal H-CBC Reviewed date:03/11/2023 06:32:07 PM Interpretation: Performing Lab: Notes/Report: WBC 23.1 4.8-10.8 K/mm3 RBC 3.96 4.20-5.40 M/mm3 HGB 13.1 12.2-16.2 g/dL HCT 39.1 37.0-47.0 % MCV 98.9 81-99 fl MCH 33.0 27.0-31.2 pg MCHC 33.4 31.8-35.4 g/dL RDW 15.3 11.5-17.5 % PLT 111 142-424 K/mm3 Delta: 197 on 03/10/23-0740 MPV 9.3 7.4-10.4 fl NE% 91.0 37.0-80.0 % LY% 4.5 10-50 % MO% 3.7 1.7-9.3 % EO% 0.7 0.1-12.0 % BA% 0.2 0.1-2.0 % NE# 21.0 1.8-7.8 K/mm3 LY# 1.0 0.7-4.5 K/mm3 MO# 0.9 0.1-1.0 K/mm3 EO# 0.2 0.0-0.4 K/mm3 BA# 0.1 0-0.2 K/mm3 H-PHOS Reviewed date:03/11/2023 08:25:54 AM Interpretation: Performing Lab: Notes/Report: Comment: Please use blood in lab PHOS 2.5 2.5-4.5 mg/dl REASON FOR REFERRAL Diagnosis 1 Debility (R53.81) Referral Organization [facility] Referring Provider First Name Latosha Referring Provider Last Name Lino Referring Provider Speciality Physician Advisory Software Engineer Referred Provider Physical Therapy, . Referred Provider Specialty Physical The rapist General Notes Latosha Huynh 10:44:22 AM > [facility] Melissa 04/18/2023 1:37:34 PM > Mar 6 @ 900am Referral Priority Routine Reason Would like for them to see patient sometime in the next 2 or 3 weeks if possible Diagnosis 1 Anemia, unspecified type (D64.9) Diagnosis 2 Gastrointestinal hem orrhage, unspecified gastrointestinal hemorrhage type (K92.2) Diagnosis 3 Hepatic cirrhosis, u nspecified hepatic cirrhosis type, unspecified whether ascites present (K74.60) Referral Organization [facility] Referring Provider First Name Marciano Referring Provider Last Name Diana Referring Provider Speciality [employer] ashutosh Referred Provider LISETH MARCELO Referred Provider Specialty Gastroentero logy General Notes Adela Chiu 11/27/19 24 1:38:33 PM > faxed to Dr. Marcelo office Referral Priority Routine MEDICATIONS Medication SIG (Take, Route, Frequency, Duration) Notes Start Date End Date Status Levothyroxine Sodium 137 MCG 1 tablet in the morning on an empty stomach Orally Once a day 07/08/2023 Active Tresiba 100 UNIT/ML 38 units Subcutaneou s once daily Active Victoza 18 MG/3ML INJECT 1.8 MG SUBCUTANEOUSLY ONCE DAILY for 60 Active Feosol Bifera 28 MG 1 tablet Orally Once a day 11/27/2023 Active Wheelchair - as directed 04/18/2023 Acti ve Jardiance 10 MG 1 tablet Orally Once a day Active Metoprolol Succinate ER 25 MG 1 tablet Orally Once a day for 90 days 04/18/2023 Active Vitamin B-12 1000 MCG 1 tablet Orally On day 11/27/2023 Active FreeStyle Margaret 3 Sensor - as directed 05/15/2023 Active Crestor 10 MG 1 tablet Orally Once a day for 30 days Active Loratadine 10 MG 1 tablet Orally Once a day for 90 days 01/31/2023 Active Cyclobenzaprine HCl 5 MG 1 tab(s) orally 3 times a day, prn 04/10/2021 Active Xarelto 15 MG TAKE ONE TABLET BY M OUTH EVERY DAY IN THE EVENING Orally once a day Active Midodrine HCl 5 MG 1 tablet Orally Twic e a day for 30 day(s) Active Potassium Chloride ER 10 MEQ 1 capsule with food Orally Twice a day for 30 days Active Desvenlafaxine ER 50 MG 1 tablet Orally Once a day for 30 day(s) Active ProAir Digihaler 108 (90 Base) MCG/ACT 1-2 puff(s) inhaled 4 times a day, prn for 30 days Active Ondansetron HCl 4 MG 1 tablet Orally tid prn Active Furosemide 20 mg 1 tablet Orally Once a day for 30 days Active Acetaminophen 325 MG 2 tablet as needed Orally every 6 hrs as needed Active Advair Diskus 250-50 MCG/ACT 1 inh inhaled 2 times a day for 30 days Active Centrum Silver Ultra Womens - 1 tab(s) orally once a day Active Triamcinolone Acetonide 0.1 % 1 teressa applied topically 3 times a day 09/30/2019 Active Montelukast Sodium 10 mg TAKE ONE TABLET BY MOUTH EVERY DAY for 90 Active Fluticasone Propionate 50 MCG/ACT 1 spray(s) intranasally once a day for 30 day(s) 06/30/2019 Active IMMUNIZATIONS Vaccine Route Administration Date Status Comme nts Tetanus Tdap-Adacel (over 7yrs) Unknown 11/25/2014 Administered PNEUMOVAX 23 VACCINE IM Intramuscular 09/30/2019 Administe red PNEUMOVAX 23 VACCINE Unknown 03/20/2023 Administered Fluzone Quad-Medicare (6months&older) IM Intramuscular 11/07/2017 Administered Fluzone High Dose (65yr and older) IM Intramuscular 10/31/2022 Administered COVID 19 Bola Unknown 09/28/2020 Administered SOCIAL HISTORY Sex Assigned At : Social History Observation Description Sex Assigned At Unknown PROBLEMS Problem Type ICD Code Onset Dates Problem Status W/U Status Risk SNOMED Code Notes Problem Type 2 diabetes mellitus without complications (E11.9) Active confirmed 898449338 Problem Hyperlipidemia (E78.5) Active confirmed Hyperlipidemia (06528119) Problem Atrial fibrillation (I48.91) Active confirmed Atrial fibrillation (20469269) Problem Vitamin D deficiency (E55.9) Active confirmed 71703667 Problem Essential hypertensi on (I10) Active confirmed 40252663 Problem Morbid obesity (E66.01) Active confirmed 329530588 Problem History of hypokalem ia (Z86.39) Active confirmed 190635592 Problem Depression with anxiety (F41.8) Active confirmed 520483050 Problem Lumbago with sciatic a, right side (M54.41) Active confirmed 520112002 Problem CHF (congestive hear t failure) (I50.9) Active confirmed Congestive heart failure (26618482) Problem Other elevated white blood cell count (D72.828) Active confirmed 720700819 Problem Mixed hyperlipidemia (E78.2) Active confirmed 200364712 Problem Hypomagnesemia (E83.42) Active confirmed 357665958 Problem Irritable bowel syndrome with diarrhea (K58.0) Active confirmed 863308381 Problem Overflow incontinenc e (N39.490) Active confirmed 265592761 Problem Depressive disorder (F32.9) Active confirmed 41121475 Problem Other chronic pain (G89.29) Active confirmed 21550306 Problem senior care (current) use of insulin (Z79.4) Active confirmed 892388981 Problem Acquired hypothyroidism (E03.9) Active confirmed 314660850 Problem Non morbid obesity d ue to excess calories (E66.09) Active confirmed 024482102 Problem Hypothyroidism (E03.9) Active confirmed Hypothyroidism (80004749) Problem Chronic obstructive pulmonary disease, unspecified COPD type (J44.9) Active confirmed 49485516 Problem Allergic rhinitis (J30.9) Active confirmed Allergic rhinitis (64592421) Problem Uncomplicated asthma , unspecified asthma severity (J45.909) Active confirmed 758705023 Problem Leukocytosis, unspecified type (D72.829) Active confirmed 112021024 Problem Anemia, unspecified type (D64.9) Active confirmed 897607583 Problem Primary osteoarthrit is of both knees (M17.0) Active confirmed 841244715 Problem Atrial fibrillation, unspecified type (I48.91) Active confirmed 54306680 Problem BMI 40.0-44.9, adult (Z68.41) Active confirmed Body mass index 40+ - morbidly obese (306103381) Problem Dysphagia, unspecifi ed type (R13.10) Active confirmed 29993788 Problem Atrial fibrillation with RVR (I48.91) Active confirmed 299205588262405 Problem Congestive heart failure, unspecified congestive heart failure chronicity, unspecified congestive heart failure type (I50.9) Active confirmed 09632394 Problem Acute left-sided low back pain with left-sided sciatica (M54.42) Active confirmed 080173110 Problem Type 2 diabetes mellitus without complication, without long-term current use of insulin (E11.9) Active confirmed 045612103 Problem Leukocytosis, unspecified (D72.829) Active confirmed 089622769 Problem BMI 39.0-39.9,adult (Z68.39) Active confirmed Obese class II (707341847305012 ) Problem Pure hypercholesterolemia (E78.00) Active confirmed 064137185 Problem Chronic allergic rhinitis, unspecified seasonality, unspecified trigger (J30.9) Active confirmed 07175488 Problem Seasonal allergic rhinitis, unspecified trigger (J30.2) Active confirmed 584578164 Problem Allergic rhinitis, unspecified seasonality, unspecified trigger (J30.9) Active confirmed 82388726 Problem Hypertension, unspecified type (I10) Active confirmed Essen tial hypertension (32231052) Problem Hepatic cirrhosis, unspecified hepatic cirrhosis type, unspecified whether ascites present (K74.60) Active confirmed 53818276 Problem Flexural atopic dermatitis (L20.89) Active confirmed 380259843 Problem HFrEF (heart failure with reduced ejection fraction) (I50.20) Active confirmed 139713690 VITAL SIGNS Heart Rate 103 /min 11/27/2023 Blood pressure diastolic 70 mm Hg 11/27/2023 Height 62 in 11/27/2023 Blood pressure systolic 112 mm Hg 11/27/2023 Weight 000 lbs 11/27/2023 BMI 41.15 kg/m2 06/27/2023 Encounters Encounter Location Date Provider Diagnosis [facility] [address] [facility] [address] [place], [place] [id number] 12/24/2022 Latosha Huynh [facility] [address] [facility] [address] [place], [place] [id number] 01/09/2023 Latoshasridhar Huynh [facility] [address] [facility] [address] [place], [place] [id number] 01/31/2023 Latosha Huynh Back muscle spasm M6 2.830 ; Chronic cough R05.3 ; Seasonal allergic rhinitis, unspecified trigger J30.2 ; Lower extremity edema R60.0 ; Hypertension, unspecified type I10 ; Type 2 diabetes mellitus without complication, without long-term current use of insulin E11.9 ; Atrial fibrillation I48.91 ; Hypothyroidism E03.9 ; CHF (congestive heart failure) I50.9 ; Depression with anxiety F41.8 ; Hyperlipidemia E78.5 ; Anemia, unspecified type D64.9 ; Chronic obstructive pulmonary disease, unspecified COPD type J44.9 and Uncomplicated asthma, unspecified asthma severity J45.909 [facility] [address] [place], [place] [id number] 02/04/2023 Latosha Drakedy [facility] [address] [facility] [address] [place], [place] [id number] 02/04/2023 Marciano [place] [facility] [address] [facility] [address] [place], [place] [id number] 04/03/2023 Marciano [place] [facility] [address] [facility] [address] [id number] 04/04/2023 Latosha Lino Hypovolemic shock R5 7.1 ; LORE (acute kidney injury) N17.9 ; Atrial fibrillation with RVR I48.91 ; HFrEF (heart failure with reduced ejection fraction) I50.20 ; Acute vomiting R11.10 ; Elevated bilirubin R17 ; Elevated brain natriuretic peptide (BNP) level R79.89 ; Hyponatremia E87.1 ; Sepsis, due to unspecified organism, unspecified whether acute organ dysfunction present A41.9 ; Dehydration E86.0 ; Unspecified Escherichia coli [E. coli] as the cause of diseases classified elsewhere B96.20 ; Type 2 diabetes mellitus without complication, without long-term current use of insulin E11.9 and Iron deficiency E61.1 [facility] [address] [facility] [address] [place], [place] [id number] 04/05/2023 Latosha Drakedy [facility] [address] [place], [place] [id number] 04/18/2023 Latosha Lino Debility R53.81 ; Symptomatic hypotension I95.9 ; Pain in right knee M25.561 ; Other chronic pain G89.29 ; Pain in left knee M25.562 ; Iron deficiency E61.1 ; Renal insufficiency N28.9 ; Acute URI J06.9 ; Lower extremity edema R60.0 and Mixed hyperlipidemia E78.2 [facility] [address] [place], [place] [id number] 04/19/2023 Latosha Crowdy [facility] [address] [place], [place] [id number] 04/24/2023 Marciano [place] [facility] [address] [place], [place] [id number] 05/15/2023 [place] Adult general medica l examination Z00.00 ; Type 2 diabetes mellitus without complication, without long-term current use of insulin E11.9 ; Hypertension, unspecified type I10 ; Atrial fibrillation I48.91 ; CHF (congestive heart failure) I50.9 ; Overflow incontinence N39.490 ; Renal insufficiency N28.9 ; Hypothyroidism E03.9 ; Hyperlipidemia E78.5 ; Vitamin D deficiency E55.9 ; Chronic obstructive pulmonary disease, unspecified COPD type J44.9 ; Depression with anxiety F41.8 ; Postmenopausal Z78.0 ; Screening mammogram, encounter for Z12.31 and BMI 39.0-39.9,adult Z68.39 [facility] [address] [facility] [address] [place], [place] [id number] 05/16/2023 Latosha Crowdy [facility] [address] [place], [place] [id number] 05/20/2023 Latosha Drakedy [facility] [address] [place], [place] [id number] 06/27/2023 Latosha Lino Renal insufficiency N28.9 ; Acute URI J06.9 ; Acute UTI N39.0 ; Type 2 diabetes mellitus without complication, without long-term current use of insulin E11.9 and Hypothyroidism E03.9 [facility] [address] [place], [place] [id number] 07/08/2023 Latosha Crowdy [facility] [address] [place], [place] [id number] 08/01/2023 Latosha Crowdy [facility] [address] [place], [place] [id number] 08/07/2023 Marciano [place] [facility] [address] [place], [place] [id number] 10/24/2023 Marciano [place] [facility] [address] [place] [id number] 11/27/2023 Marciano [place] Gastrointestinal hemorrhage, unspecified gastrointestinal hemorrhage type K92.2 ; Anemia, unspecified type D64.9 ; Peripheral edema R60.0 ; Renal insufficiency N28.9 ; Hypokalemia E87.6 ; Hypomagnesemia E83.42 ; Hepatic cirrhosis, unspecified hepatic cirrhosis type, unspecified whether ascites present K74.60 and SOB (shortness of breath) R06.02 [facility] [address] [place] [id number] 11/28/2023 Marciano [place] [facility] [address] [place] [id number] 12/09/2023 Marciano Ortiz ASSESSMENTS Encounter Date Diagnosis Assessment Notes Treatment Notes Treatment Clinical Notes 01/31/2023 Back muscle spasm (ICD-10 - M62.830) 01/31/2023 Chronic cough (ICD-1 0 - R05.3) 04/04/2023 Hypovolemic shock (ICD-10 - R57.1) Resolved. 04/04/2023 LORE (acute kidney injury) (ICD-10 - N17.9) Will recheck renal function today. 04/18/2023 Debility (ICD-10 - R53.81) Patient's insurance will no longer cover home health because she is able to get out. Will need a wheel chair and PT ordered at [facility]. Pt is unable to use a walker at this time, and will need a wheelchair for daily living within the home 04/18/2023 Symptomatic hypotens ion (ICD-10 - I95.9) BP's at home have been in the 90/60's. She still feels tired and sluggish. Will decrease to a 25mg toprol succinate and see if BP improves. 05/15/2023 Adult general medica l examination (ICD-10 - Z00.00) Patient instructed to return to office Annually for Annual Wellness Visits to include annual screenings of Pain assessment, Functional Ability assessment, Cognitive Ability assessment, Fall Risk assessment, Depression screening and Bladder control screening. 05/15/2023 Type 2 diabetes mellitus without complication, without long-term current use of insulin (ICD-10 - E11.9) 06/27/2023 Acute URI (ICD-10 - J06.9) 06/27/2023 Renal insufficiency (ICD-10 - N28.9) 11/27/2023 Anemia, unspecified type (ICD-10 - D64.9) 11/27/2023 Gastrointestinal hemorrhage, unspecified gastrointestinal hemorrhage type (ICD-10 - K92.2) 11/27/2023 Peripheral edema (ICD-10 - R60.0) 05/15/2023 Hypertension, unspecified type (ICD-10 - I10) 06/27/2023 Acute UTI (ICD-10 - N39.0) Finished abx. Will recheck another U/A and culture. 04/18/2023 Pain in right knee (ICD-10 - M25.561) 04/04/2023 Atrial fibrillation with RVR (ICD-10 - I48.91) HR is normal and rhythm sound regular today. BP is low. Will decrease toprol dose and she will monitor BP at home. 01/31/2023 Seasonal allergic rhinitis, unspecified trigger (ICD-10 - J30.2) 11/27/2023 Renal insufficiency (ICD-10 - N28.9) 01/31/2023 Lower extremity easton a (ICD-10 - R60.0) Cardiology has adjusted medication. Will check labs. 04/04/2023 HFrEF (heart failure with reduced ejection fraction) (ICD-10 - I50.20) 04/18/2023 Other chronic pain (ICD-10 - G89.29) 06/27/2023 Type 2 diabetes mellitus without complication, without long-term current use of insulin (ICD-10 - E11.9) 05/15/2023 Atrial fibrillation (ICD-10 - I48.91) 11/27/2023 Hypokalemia (ICD-10 - E87.6) 06/27/2023 Hypothyroidism (ICD- 10 - E03.9) 04/18/2023 Pain in left knee (ICD-10 - M25.562) 05/15/2023 CHF (congestive hear t failure) (ICD-10 - I50.9) 01/31/2023 Hypertension, unspecified type (ICD-10 - I10) 04/04/2023 Acute vomiting (ICD- 10 - R11.10) Resolved. 04/04/2023 Elevated bilirubin (ICD-10 - R17) Will recheck today. 01/31/2023 Type 2 diabetes mellitus without complication, without long-term current use of insulin (ICD-10 - E11.9) 05/15/2023 Overflow incontinenc e (ICD-10 - N39.490) 04/18/2023 Iron deficiency (ICD -10 - E61.1) 11/27/2023 Hypomagnesemia (ICD- 10 - E83.42) 11/27/2023 Hepatic cirrhosis, unspecified hepatic cirrhosis type, unspecified whether ascites present (ICD-10 - K74.60) 04/18/2023 Renal insufficiency (ICD-10 - N28.9) 05/15/2023 Renal insufficiency (ICD-10 - N28.9) 01/31/2023 Atrial fibrillation (ICD-10 - I48.91) 04/04/2023 Elevated brain natriuretic peptide (BNP) level (ICD-10 - R79.89) Will recheck today. 04/04/2023 Hyponatremia (ICD-10 - E87.1) Will recheck today. 01/31/2023 Hypothyroidism (ICD- 10 - E03.9) 05/15/2023 Hypothyroidism (ICD- 10 - E03.9) 04/18/2023 Acute URI (ICD-10 - J06.9) 11/27/2023 SOB (shortness of breath) (ICD-10 - R06.02) 05/15/2023 Hyperlipidemia (ICD- 10 - E78.5) 01/31/2023 CHF (congestive hear t failure) (ICD-10 - I50.9) 04/04/2023 Sepsis, due to unspecified organism, unspecified whether acute organ dysfunction present (ICD-10 - A41.9) Resolved. 04/18/2023 Lower extremity easton a (ICD-10 - R60.0) Has been off of her lasix but is now starting to swell. Will start back on 20mg daily and will recheck renal function. 04/04/2023 Dehydration (ICD-10 - E86.0) Improved. 01/31/2023 Depression with anxi ety (ICD-10 - F41.8) Eloisa Aceves is adjusting her pristiq. 04/18/2023 Mixed hyperlipidemia (ICD-10 - E78.2) Patient has run out of lipitor from the long-term but she has a lot of crestor at home, will start back on this. 05/15/2023 Vitamin D deficiency (ICD-10 - E55.9) 05/15/2023 Chronic obstructive pulmonary disease, unspecified COPD type (ICD-10 - J44.9) 01/31/2023 Hyperlipidemia (ICD- 10 - E78.5) 04/04/2023 Unspecified Escheric hia coli [E. coli] as the cause of diseases classified elsewhere (ICD-10 - B96.20) Will recheck U/A and culture today. 01/31/2023 Anemia, unspecified type (ICD-10 - D64.9) 04/04/2023 Type 2 diabetes mellitus without complication, without long-term current use of insulin (ICD-10 - E11.9) Was taking insulin glargine at the long-term. Will switch back to tresiba. 05/15/2023 Depression with anxi ety (ICD-10 - F41.8) 05/15/2023 Postmenopausal (ICD- 10 - Z78.0) 04/04/2023 Iron deficiency (ICD -10 - E61.1) 01/31/2023 Chronic obstructive pulmonary disease, unspecified COPD type (ICD-10 - J44.9) 01/31/2023 Uncomplicated asthma , unspecified asthma severity (ICD-10 - J45.909) 05/15/2023 Screening mammogram, encounter for (ICD-10 - Z12.31) 05/15/2023 BMI 39.0-39.9,adult (ICD-10 - Z68.39) PLAN OF TREATMENT Pending Test Test Name Order Date Bone density 10/31/2022 Stool Guaiac(Occult Blood) 05/30/2022 Mammogram 10/31/2022 CBC 06/22/2020 Urinalysis 06/22/2020 H-BMP 11/09/2020 H-COVIDPANEL 12/13/2023 P-BNP (Brain Natriuretic Peptide) 2023 Next Appt Details Provider Name:Latosha avitia, 12/18/2023 01:30:00 PM, [address], [place], [place], [id number], Insurance Providers Payer Name Payer Address Payer Phone Subscriber Number Group Number Insured Name Patient Relationship to Insured Coverage Start Date Coverage End Date [facility] [address] [place] [address] [id number] CURRENT, ALINA Self - patient is the insured MEDICAL (GENERAL) HISTORY Medical History History ICD Code Congestive Heart Failure, Dx: 2000 - Dr. Escalante [employer] Hypertension Hyperlipidemia Type 2 Diabetes Hypothyroidism Depression Irritable Bowel Syndrome with Diarrhea Osteoarthritis, knees Asthma/COPD Allergic Rhinitis Low Back Pain Atrial fibrillation, Dx: 2018 Surgical History Surgery Date(Month/Year) Bilateral Tubal Ligation 1990 Cholecystectomy 1994 Heart Cath - [facility] - Dr. Escalante 03/2015 Rt Ovarian Cyst removed 11/2016 Esophogus Stretched 04/2020 Hospitalization History Reason Date(Month/Year) Ovarian Cyst Removal- [facility] 11/2016
--- OUTSIDE RECORDS SUMMARY | 2023-12-13 11:23 | XMS_ITS ---
Author Organization [facility] Address [address] [facility] [address] [place] [id number] Care Team Providers Care Neon Sign Worker Name Role Phone Marciano Ortiz Primary Care Provider ALLERGIES Allergen (clinical drug ingredient) Drug/Non Drug [...] 44 Performing Lab: Notes/Report: Test performed by [facility] [address] [place] [address] , [address], [place] [address] Babak Giordano MD, Estate Agent CLIA: [id number] Sodium 137 135-145 mmol/L Potassium 3.8 3.5-5.3 [...] Interpretation:Normal Performing Lab: Notes/Report: Test performed by [facility] [address] , [place] [address] Babak Giordano MD, Estate Agent CLIA: [id number] Thyroxine Free (free T4) 1.16 0.86-1.76 ng/dL P-Magnesium Reviewed date:11/28/2023 03:57:16 PM Interpretation:Normal Performing Lab: Notes/Report: Test performed by [facility] [address] , [place] [address] Babak Giordano MD, Estate Agent CLIA: [id number] Magnesium 1.7 1.6-2.4 mg/dL P-TSH reflex to FT4 Reviewed date:11/28/2023 03:57:16 PM Interpretation:18.40 Performing Lab: Notes/Report: Test performed by [facility] [address] [place] [address] , [place] [address] Babak Giordano MD, Estate Agent CLIA: [id number] TSH reflex to FT4 18.40 0.43-5.25 mU/L proBrain Natriuretic Peptide Reviewed date:11/28/2023 03:57:16 PM Interpretation:[id number] Performing Lab: Notes/Report: Test performed by [facility] [address] , [address], [place] [address] Babak Giordano MD, Estate Agent CLIA: [id number] proBrain Natriuretic Peptide 61000 <300 pg/mL Please note the updated reference range values which are stratified by age. Positive >900 pg/mL Indeterminate 300-900 pg/mL Negative <300 pg/mL REASON FOR REFERRAL Reason Would like for them to see patient sometime in the next 2 or 3 weeks if possible Diagnosis 1 Anemia, unspecified type (D64.9) Diagnosis 2 Gastrointestinal hem orrhage, unspecified gastrointestinal hemorrhage type (K92.2) Diagnosis 3 Hepatic cirrhosis, u nspecified hepatic cirrhosis type, unspecified whether ascites present (K74.60) Referral Organization [facility] Referring Provider First Name Marciano Referring Provider Last Name Diana [facility] Provider LISETH MARCELO Referred Provider Specialty Gastroentero logy General Notes Adela Chiu 11/27/19 24 1:38:33 PM > faxed to Dr. Marcelo office Referral Priority Routine REASON FOR VISIT [facility] f/u MEDICATIONS Medication SIG (Take, Route, Frequency, Duration) Notes Start Date End Date Status Furosemide 20 mg 1 tablet Orally Once a day for 30 days Active Levothyroxine Sodium 137 MCG 1 tablet in the morning on an empty stomach Orally Once a day 07/08/2023 Active Potassium Chloride ER 10 MEQ 1 capsule with food Orally Twice a day for 30 days Active ProAir Digihaler 108 (90 Base) MCG/ACT 1-2 puff(s) inhaled 4 times a day, prn for 30 days Active Advair Diskus 250-50 MCG/ACT 1 inh inhaled 2 times a day for 30 days Active Metoprolol Succinate ER 25 MG 1 tablet Orally Once a day for 90 days 04/18/2023 Active Crestor 10 MG 1 tab(s) orally once a day (at bedtime) Active FreeStyle Margaret 3 Sensor - as directed 05/15/2023 Active Tresiba 100 UNIT/ML 38 units Subcutaneou s once daily Active Victoza 18 MG/3ML INJECT 1.8 MG SUBCUTANEOUSLY ONCE DAILY for 60 Active Wheelchair - as directed 04/18/2023 Acti ve Jardiance 10 MG 1 tablet Orally Once a day Active Vitamin B-12 1000 MCG 1 tablet Orally On day 11/27/2023 Active Cyclobenzaprine HCl 5 MG 1 tab(s) orally 3 times a day, prn 04/10/2021 Active Xarelto 15 MG TAKE ONE TABLET BY M OUTH EVERY DAY IN THE EVENING Orally once a day Active Loratadine 10 MG 1 tablet Orally Once a day for 90 days 01/31/2023 Active Feosol Bifera 28 MG 1 tablet Orally Once a day 11/27/2023 Active Montelukast Sodium 10 mg TAKE ONE TABLET BY MOUTH EVERY DAY for 90 Active Ondansetron HCl 4 MG 1 tablet Orally tid prn Active Acetaminophen 325 MG 2 tablet as needed Orally every 6 hrs as needed Active Centrum Silver Ultra Womens - 1 tab(s) orally once a day Active Triamcinolone Acetonide 0.1 % 1 teressa applied topically 3 times a day 09/30/2019 Active Fluticasone Propionate 50 MCG/ACT 1 spray(s) intranasally once a day for 30 day(s) 06/30/2019 Active Midodrine HCl 5 MG 1 tablet Orally Twic e a day for 30 day(s) Active Desvenlafaxine ER 50 MG 1 tablet Orally Once a day for 30 day(s) Active PROBLEMS Problem Type ICD Code Onset Dates Problem Status W/U Status Risk SNOMED Code Notes Problem Anemia, unspecified type (D64.9) Active confirmed 471537322 Problem Hypomagnesemia (E83.42) Active confirmed [id number] Problem Hepatic cirrhosis, unspecified hepatic cirrhosis type, unspecified whether ascites present (K74.60) Active confirmed [id number] VITAL SIGNS Weight 000 lbs 11/27/2023 Blood pressure systolic 112 mm Hg 11/27/19 24 Blood pressure diastolic 70 mm Hg 024 Heart Rate 103 /min 11/27/2023 Height 62 in 11/27/2023 Encounters Encounter Location Date Provider Diagnosis [facility] [address] [place], [place] [phone] 11/27/2023 Marciano [place] Gastrointestinal hemorrhage, unspecified gastrointestinal hemorrhage type K92.2 ; Anemia, unspecified type D64.9 ; Peripheral edema R60.0 ; Renal insufficiency N28.9 ; Hypokalemia E87.6 ; Hypomagnesemia E83.42 ; Hepatic cirrhosis, unspecified hepatic cirrhosis type, unspecified whether ascites present K74.60 and SOB (shortness of breath) R06.02 ASSESSMENTS Encounter Date Diagnosis Assessment Notes Treatment Notes Treatment Clinical Notes 11/27/2023 Gastrointestinal hemorrhage, unspecified gastrointestinal hemorrhage type (ICD-10 - K92.2) 11/27/2023 Anemia, unspecified type (ICD-10 - D64.9) 11/27/2023 Peripheral edema (ICD-10 - R60.0) 11/27/2023 Renal insufficiency (ICD-10 - N28.9) 11/27/2023 Hypokalemia (ICD-10 - E87.6) 11/27/2023 Hypomagnesemia (ICD- 10 - E83.42) 11/27/2023 Hepatic cirrhosis, unspecified hepatic cirrhosis type, unspecified whether ascites present (ICD-10 - K74.60) 11/27/2023 SOB (shortness of breath) (ICD-10 - R06.02) PLAN OF TREATMENT Medication Medication Name Sig Start Date Stop Date Notes Vitamin B-12 1000 MCG 1 tablet Orally Once a day Feosol Bifera 28 MG 1 tablet Orally Once a day 11/27/2023 Pending Test Test Name Order Date P-BNP (Brain Natriuretic Peptide) 2023 Referrals Referral Date Details Would like for them to see patient sometime in the next 2 or 3 weeks if possible, LISETH MARCELO Next Appt Details Follow Up: 1 Week, Reason: Provider Name:Latosha avitia, 12/18/2023 01:30:00 PM, [address] [facility] [address] [facility], [address] , [place], [place], [id number], History and Physical Notes * HPI (History of Present Illness) Category Sub-Category Detail Notes HPI Here for follow up on: 11/13-08/2023 [facility] and [place] hospitalization. Pt was admitted for blood in stool and cirrhosis of liver. Pt states she is having shortness of breath, off and on nose bleeds, chest pressure and issues with mobility since being discharged Consultation Request Notes Referral Date Referring Provider Referred Provider Not jose 11/27/2023 Marciano Ortiz [facility] Would like for them to see patient sometime in the next 2 or 3 weeks if possible
--- OUTSIDE RECORDS SUMMARY | 2023-12-13 11:23 | XMS_ITS ---
Author Organization [facility] Address [address] [facility] [address] [place] [id number] Care Team Providers Care Experimental Machinist Name Role Phone Marciano Ortiz Primary Care Provider REASON FOR VISIT Test Results* Encounters Encounter Location Date Provider Diagnosis [facility] [address] [facility] [address] [place] [id number] 11/28/2023 Marciano Ortiz PLAN OF TREATMENT Next Appt Details Provider Name:Latosha avitia, 12/18/2023 01:30:00 PM, [address] [facility], [address], [place], [phone],
[2023-12-13] MEDS: LEVOTHYROXINE 137MCG (0.137MG) TAB 137 MCG PO (11:30)
[2023-12-13 14:34] LABS: POC Glucose,Bedside 117 (70-110)
[2023-12-13 14:34] LABS: POC Glucose,Bedside 174 (70-110)
[2023-12-13 15:19] LABS: POC Glucose,Bedside 130 (70-110)
[2023-12-13] MEDS: RIVAROXABAN 15MG TABLET 15 MG PO (16:48)
[2023-12-13 17:04] LABS: POC Glucose,Bedside 106 (70-110)
--- NOTE | 2023-12-13 17:08 | PC.NURSE ---
Patient A/O able to voice needs to staff. Patient has no new c/o, rested throughout shift, BS did stable out and patient was moved to med / surg status. Saravia cath patent, both S/L intact flushing easily with no resistance. Reviewed poc and d/c goals with patient, patient v/u has no new concerns
[2023-12-13] MEDS: FLUTICASONE/SALMETEROL 250/50MCG DISKUS 1 PUFF IH (18:18)
[2023-12-13 20:39] LABS: POC Glucose,Bedside 194 (70-110)
[2023-12-13] MEDS: ATORVASTATIN 40MG TABLET 40 MG PO (21:44)
[2023-12-13] MEDS: ACETAMINOPHEN 325MG TAB 650 MG PO (21:44)
[2023-12-14] VITALS (9 sets, daily range): BP systolic 87–109; BP diastolic 47–79; PULSE 80–110; RESP 17–20; TEMP 36.7–37; O2SAT 90–96; BMI 42.4
[2023-12-14 05:54] LABS: POC Glucose,Bedside 132 (70-110)
[2023-12-14] MEDS: LEVOTHYROXINE 137MCG (0.137MG) TAB 137 MCG PO (06:03)
--- NOTE | 2023-12-14 06:37 | PC.NURSE ---
Pt is A&OX4 and has remained on 1L nasal cannula with O2 sats >92%. Lung sounds diminished and bowel sounds active. Blood sugar was 194 yesterday evening and 132 this morning. She did complain of a headache once this shift and was medicated per APR. Currently asleep with call light within reach.
[2023-12-14] MEDS: FLUTICASONE/SALMETEROL 250/50MCG DISKUS 1 PUFF IH (06:41)
[2023-12-14 06:50] LABS: Basophils % 0.2 % (0.1-2.0); Eosinophils % 0.1 % (0.1-12.0); Hematocrit 31.8 % (37.0-47.0); Hemoglobin 9.5 g/dL (12.2-16.2); Lymphocytes # 0.9 K/mm3 (0.7-4.5); Lymphocytes % 18.1 % (10-50); Mean Corpuscular HGB Conc 29.8 g/dL (31.8-35.4); Mean Corpuscular Volume 90.4 fl (81-99); Mean Platelet Volume 8.2 fl (7.4-10.4); Monocytes # 0.5 K/mm3 (0.1-1.0); Monocytes % 9.8 % (1.7-9.3); Neutrophils # 3.6 K/mm3 (1.8-7.8); Neutrophils % 71.8 % (37.0-80.0); Platelet Count 213 K/mm3 (142-424); Red Blood Count 3.52 M/mm3 (4.20-5.40)
[2023-12-14 06:59] LABS: Albumin Level 3.4 g/dl (3.5-5.0); Chloride 97 mmol/L (98-107); Red Cell Distribution Width 25.5 % (11.5-17.5); Sodium 138 mmol/L (136-145)
[2023-12-14 07:01] LABS: Blood Urea Nitrogen 20 mg/dl (7-17); Creatinine Clearance Estimated 29 mL/min (50-200); Estimated Glomerular Filt Rate 38 ml/min (>60); GFR (African American) 45 ML/MIN (>60)
[2023-12-14 07:02] LABS: Alanine Aminotransferase 14 U/L (12-78); Albumin/Globulin Ratio 1.1 (1.1-1.8); Alkaline Phosphatase 99 U/L (38-126); Anion Gap 10.9 mEq/L (5-15); Aspartate Amino Transferase 24 U/L (14-36); Calcium 8.1 mg/dl (8.4-10.2); Carbon Dioxide 33 mmol/L (22.0-30.0); Glucose 122 mg/dl (74-100); Total Protein,Serum 6.4 g/dl (6.3-8.2)
[2023-12-14 07:03] LABS: Albumin Level 3.2 g/dl (3.5-5.0)
[2023-12-14 07:06] LABS: Alanine Aminotransferase 13 U/L (12-78); Alkaline Phosphatase 98 U/L (38-126); Aspartate Amino Transferase 21 U/L (14-36); Bilirubin,Direct 0.2 mg/dl (0.0-0.4); Bilirubin,Indirect 0.8 mg/dL (0.0-0.9); Bilirubin,Unconjugated 0.8 mg/dL (0.0-1.1); Cholesterol 61 mg/dl (140-200); HDL Cholesterol 31 mg/dl (40-60); Triglycerides 67 mg/dl (30-150); VLDL Cholesterol 13 mg/dL (0-40)
[2023-12-14 07:13] LABS: Potassium 2.9 mmoL/L (3.5-5.1)
[2023-12-14 07:25] LABS: Direct LDL Cholesterol < 30.00 mg/dL (100-129)
[2023-12-14] MEDS: SPIRONOLACTONE 25MG TABLET 25 MG PO (08:16)
[2023-12-14] MEDS: FUROSEMIDE 100MG/10ML VIAL 80 MG IV ×2 (08:16→16:38)
[2023-12-14] MEDS: POTASSIUM CHLORIDE 20MEQ TAB 40 MEQ PO (08:16)
[2023-12-14] MEDS: SACUBITRIL/VALSARTAN 24-26MG TABLET 1 EACH PO ×2 (08:16→20:40)
[2023-12-14] MEDS: METOPROLOL SUCCINATE XL 25MG TABLET 25 MG PO (08:16)
[2023-12-14] MEDS: EMPAGLIFLOZIN 10MG TABLET 10 MG PO (08:16)
--- NOTE | 2023-12-14 08:47 | P.PN_ITS ---
Subjective *Date: 12/14/23 *Time: 08:47 Interval history: Patient feels a little better this morning, was able to sleep some last night. Medical Exam Vital signs and Labs for Last 24 Hours: Vital Signs Temp Pulse Pulse Resp BP Pulse Ox O2 Del Method 12/14/23 08:00 Nasal Cannula 12/14/23 06:51 Room Air 12/14/23 06:41 96 Nasal Cannula 12/14/23 05:00 Nasal Cannula 12/14/23 04:00 100 H 12/14/23 03:42 98.6 F 100 H 18 109/79 L 96 Nasal Cannula 12/14/23 03:00 Nasal Cannula 12/14/23 01:00 Nasal Cannula 12/14/23 00:00 90 12/13/23 23:53 99.1 F 103 H 18 114/62 97 Nasal Cannula 12/13/23 23:00 Nasal Cannula 12/13/23 21:00 Nasal Cannula 12/13/23 20:00 Nasal Cannula 12/13/23 20:00 110 H 12/13/23 19:19 99.5 F 92 H 18 116/70 96 Nasal Cannula 12/13/23 19:00 Nasal Cannula 12/13/23 18:20 93 L Nasal Cannula 12/13/23 17:00 Nasal Cannula 12/13/23 16:00 110 H 12/13/23 16:00 99.9 F H 109 H 20 108/70 L 92 L Nasal Cannula 12/13/23 15:00 Nasal Cannula 12/13/23 14:00 99.9 F H 102 H 20 93/53 L 96 Nasal Cannula 12/13/23 13:00 Nasal Cannula 12/13/23 12:00 100 H 12/13/23 12:00 99.3 F 12/13/23 11:00 Nasal Cannula 12/13/23 10:00 99 F 102 H 18 116/79 Room Air 12/13/23 09:00 Nasal Cannula O2 Flow Rate 12/14/23 08:00 12/14/23 06:51 12/14/23 06:41 1 12/14/23 05:00 1 12/14/23 04:00 12/14/23 03:42 1 12/14/23 03:00 1 12/14/23 01:00 1 12/14/23 00:00 12/13/23 23:53 1 12/13/23 23:00 1 12/13/23 21:00 1 12/13/23 20:00 1 12/13/23 20:00 12/13/23 19:19 1 12/13/23 19:00 2 12/13/23 18:20 1 12/13/23 17:00 2 12/13/23 16:00 12/13/23 16:00 1 12/13/23 15:00 2 12/13/23 14:00 1 12/13/23 13:00 1 12/13/23 12:00 12/13/23 12:00 12/13/23 11:00 1 12/13/23 10:00 2 12/13/23 09:00 2 Intake and Output 12/13/23 12/14/23 12/14/23 23:59 07:59 15:59 Intake Total 540 / 1195 250 / 250 Output Total 1560 / 2660 620 / 620 Balance -1020 / -1465 -370 / -370 Intake: Intake, Oral Amount 540 / 660 250 / 250 Output: Output, Urine Amount 800 / 800 620 / 620 Output, Urine Amount (Catheter) 760 / 1860 Saravia 760 / 1860 Other: Number of Unmeasured Voids 0 Weight 230 lb 6.834 oz Patient Weight 12/14/23 23:59 Weight 230 lb 6.834 oz Laboratory Results - last 24 hr 12/13/23 01:15: POC Glucose 79 12/13/23 03:15: POC Glucose 74 12/13/23 04:48: POC Glucose 67 L 12/13/23 06:30: POC Glucose 64 L 12/13/23 07:24: POC Glucose 67 L 12/13/23 08:15: Chlamy pneumoniae PCR Not detected, Adenovirus (PCR) Not detected, B. pertussis DNA (PCR) Not detected, Coronavirus OC43 (PCR) Not detected, Coronavirus HKU1 (PCR) Not detected, Coronavirus 229E (PCR) Not detected, SARS-CoV-2 (PCR) Not detected, Coronavirus NL63 (PCR) Not detected, Human Metapneumovir PCR Not detected, Influenza A (H1) PCR Not detected, Influ A (H1N1/09) PCR Not detected, Influenza A (H3) PCR Not detected, Influenza Type A (PCR) Not detected, Influenza Type B (PCR) Not detected, M. pneumoniae (PCR) Not detected, Parainfluenza 1 (PCR) Not detected, Parainfluenza 2 (PCR) Not detected, Parainfluenza 3 (PCR) Not detected, Parainfluenza 4 (PCR) Not detected, RSV (PCR) Not detected, Entero/Rhino (PCR) Not detected 12/13/23 09:07: POC Glucose 80 12/13/23 10:05: POC Glucose 64 L 12/13/23 10:43: POC Glucose 110 12/13/23 11:13: POC Glucose 128 H 12/13/23 12:41: POC Glucose 117 H 12/13/23 14:10: POC Glucose 174 H 12/13/23 15:12: POC Glucose 130 H 12/13/23 16:47: POC Glucose 106 12/13/23 20:32: POC Glucose 194 H 12/14/23 05:47: POC Glucose 132 H 12/14/23 05:57: WBC 5.0 D, RBC 3.52 L, Hgb 9.5 L, Hct 31.8 L, MCV 90.4, MCH 27.0, MCHC 29.8 L, RDW 25.5 H*, Plt Count 213, MPV 8.2, Neut % (Auto) 71.8, Lymph % (Auto) 18.1, [place] % (Auto) 9.8 H, Eos % (Auto) 0.1, Baso % (Auto) 0.2, Neut # (Auto) 3.6, Lymph # (Auto) 0.9, [place] # (Auto) 0.5, Eos # (Auto) 0.0, Baso # (Auto) 0.0, Sodium 138, Potassium 2.9 L*, Chloride 97 L, Carbon Dioxide 33 H, Anion Gap 10.9, BUN 20 H, Creatinine 1.40 H, Estimated Creat Clear 29, Estimated GFR 38 L, Est GFR ( Amer) 45 L, Glucose 122 H, Calcium 8.1 L, Total Bilirubin 1.0 12/14/23 05:57: Total Bilirubin 1.0, Direct Bilirubin 0.2, Conjugated Bilirubin 0.0, Indirect Bilirubin 0.8, Unconjugated Bilirubin 0.8, AST 24 D 12/14/23 05:57: AST 21, ALT 14 12/14/23 05:57: ALT 13, Alkaline Phosphatase 99 12/14/23 05:57: Alkaline Phosphatase 98, Total Protein 6.4 12/14/23 05:57: Total Protein 6.0 L, Albumin 3.4 L D 12/14/23 05:57: Albumin 3.2 L, Globulin 3.0, Albumin/Globulin Ratio 1.1, Triglycerides 67, Cholesterol 61 L, LDL Cholesterol Direct < 30.00 L, VLDL Cholesterol 13, HDL Cholesterol 31 L, Cholesterol/HDL Ratio 2.0 I & O for Labs for Last 24 Hours: Intake & Output 12/11/23 12/12/23 12/13/23 12/14/23 23:59 23:59 23:59 23:59 Intake Total 1195 / 1195 250 / 250 Output Total 700 / 700 2660 / 2660 620 / 620 Balance -700 / -700 -1465 / -1465 -370 / -370 Weight 230 lb 229 lb 15.074 oz 230 lb 6.834 oz Constitutional: Present no acute distress Respiratory: Present normal respiratory effort Cardiac: Present Reg Rate and Rhythm GI: Present normal bowel sounds; Absent tenderness Extremities: Present normal inspection and full ROM Skin: Present intact; Absent erythema Neuro: Present Grossly Intact and moves all extremities Assessment and Plan *Assessment and plan (1) Hypoglycemia associated with type 2 diabetes mellitus: Status: Acute Category: Medical Code(s): E11.649 - Type 2 diabetes mellitus with hypoglycemia without coma (2) Compression atelectasis: Status: Acute Category: Medical Code(s): J98.11 - Atelectasis (3) Acute exacerbation of CHF (congestive heart failure): Status: Acute Qualifiers: Heart failure type: unspecified Qualified Code(s): I50.9 - Heart failure, unspecified Category: Medical Code(s): I50.9 - Heart failure, unspecified (4) Ascites: Status: Acute Qualifiers: Ascites type: other type Qualified Code(s): R18.8 - Other ascites Category: Medical Code(s): R18.8 - Other ascites (5) Anasarca: Status: Acute Category: Medical Code(s): R60.1 - Generalized edema (6) Pleural effusion: Status: Acute Category: Medical Code(s): J90 - Pleural effusion, not elsewhere classified (7) Cirrhosis: Status: Acute Qualifiers: Ascites presence: with ascites Hepatic cirrhosis type: unspecified hepatic cirrhosis Qualified Code(s): K74.60 - Unspecified cirrhosis of liver; R18.8 - Other ascites Category: Medical Code(s): K74.60 - Unspecified cirrhosis of liver (8) A-fib: Status: Acute Qualifiers: Atrial fibrillation type: unspecified chronic Qualified Code(s): I48.20 - Chronic atrial fibrillation, unspecified Category: Medical Code(s): I48.91 - Unspecified atrial fibrillation (9) Elevated lactic acid level: Status: Acute Category: Medical Code(s): R79.89 - Other specified abnormal findings of blood chemistry (10) HTN (hypertension): Status: Chronic Qualifiers: Hypertension type: essential hypertension Qualified Code(s): I10 - Essential (primary) hypertension Category: Medical Code(s): I10 - Essential (primary) hypertension (11) COPD (chronic obstructive pulmonary disease): Status: Chronic Qualifiers: COPD type: unspecified COPD Qualified Code(s): J44.9 - Chronic obstructive pulmonary disease, unspecified Category: Medical Code(s): J44.9 - Chronic obstructive pulmonary disease, unspecified (12) Hypothyroid: Status: Chronic Qualifiers: Hypothyroidism type: unspecified Qualified Code(s): E03.9 - Hypothyroidism, unspecified Category: Medical Code(s): E03.9 - Hypothyroidism, unspecified (13) Hyperlipidemia: Status: Chronic Qualifiers: Hyperlipidemia type: mixed hyperlipidemia Qualified Code(s): E78.2 - Mixed hyperlipidemia Category: Medical Code(s): E78.5 - Hyperlipidemia, unspecified (14) Acute on chronic HFrEF (heart failure with reduced ejection fraction): Status: Acute Category: Medical Code(s): I50.23 - Acute on chronic systolic (congestive) heart failure (15) Elevated brain natriuretic peptide (BNP) level: Status: Acute Category: Medical Code(s): R79.89 - Other specified abnormal findings of blood chemistry (16) Anemia: Status: Acute Category: Medical Code(s): D64.9 - Anemia, unspecified (17) Hypokalemia: Status: Acute Category: Medical Code(s): E87.6 - Hypokalemia Plan Plan to resume meds for heart failure today, replace potassium, recheck labs tomorrow.
[2023-12-14 08:51] LABS: HCV Ab Non Reactive (Non Reactive)
--- NOTE | 2023-12-14 09:08 | PC.NURSE ---
let nurse know about elevated pulse and low b/p
[2023-12-14 10:54] LABS: POC Glucose,Bedside 180 (70-110)
[2023-12-14] MEDS: RIVAROXABAN 15MG TABLET 15 MG PO (16:38)
[2023-12-14 16:49] LABS: POC Glucose,Bedside 162 (70-110)
--- NOTE | 2023-12-14 18:25 | PC.NURSE ---
pt has done well this shift. she has bee weaned to room air. has had adequate urine output. She does state that she feels much better. BP is soft but pt is asymptomatic. other vss.
[2023-12-14] MEDS: ATORVASTATIN 40MG TABLET 40 MG PO (20:40)
[2023-12-14 20:51] LABS: POC Glucose,Bedside 260 (70-110)
[2023-12-15] VITALS (9 sets, daily range): BP systolic 86–125; BP diastolic 53–69; PULSE 80–115; RESP 16–18; TEMP 36.7–37.2; O2SAT 91–98; BMI 42.0
[2023-12-15] MEDS: LEVOTHYROXINE 137MCG (0.137MG) TAB 137 MCG PO (06:06)
[2023-12-15 06:15] LABS: POC Glucose,Bedside 166 (70-110)
[2023-12-15] MEDS: FLUTICASONE/SALMETEROL 250/50MCG DISKUS 1 PUFF IH ×2 (06:27→19:30)
[2023-12-15 07:19] LABS: Chloride 98 mmol/L (98-107); Sodium 137 mmol/L (136-145)
[2023-12-15 07:22] LABS: Blood Urea Nitrogen 17 mg/dl (7-17); Creatinine Clearance Estimated 32 mL/min (50-200); Estimated Glomerular Filt Rate 41 ml/min (>60); GFR (African American) 49 ML/MIN (>60); Potassium 2.6 mmoL/L (3.5-5.1)
[2023-12-15 07:23] LABS: Anion Gap 7.6 mEq/L (5-15); Calcium 7.9 mg/dl (8.4-10.2); Carbon Dioxide 34 mmol/L (22.0-30.0); Glucose 154 mg/dl (74-100)
[2023-12-15 07:25] LABS: Basophils % 0.1 % (0.1-2.0); Eosinophils % 0.1 % (0.1-12.0); Hematocrit 31.5 % (37.0-47.0); Hemoglobin 9.5 g/dL (12.2-16.2); Lymphocytes # 0.9 K/mm3 (0.7-4.5); Lymphocytes % 12.8 % (10-50); Mean Corpuscular HGB Conc 30.2 g/dL (31.8-35.4); Mean Corpuscular Volume 89.2 fl (81-99); Mean Platelet Volume 8.2 fl (7.4-10.4); Monocytes # 0.6 K/mm3 (0.1-1.0); Monocytes % 9.3 % (1.7-9.3); Neutrophils # 5.2 K/mm3 (1.8-7.8); Neutrophils % 77.7 % (37.0-80.0); Platelet Count 215 K/mm3 (142-424); Red Blood Count 3.53 M/mm3 (4.20-5.40); White Blood Count 6.6 K/mm3 (4.8-10.8)
[2023-12-15 07:27] LABS: Red Cell Distribution Width 25.1 % (11.5-17.5)
--- NOTE | 2023-12-15 08:43 | P.PN_ITS ---
Subjective *Date: 12/15/23 *Time: 08:43 Interval history: Patient feels a little better today, breathing has improved. Medical Exam Vital signs and Labs for Last 24 Hours: Vital Signs Temp Pulse Pulse Resp BP Pulse Ox O2 Del Method 12/15/23 08:00 98.1 F 92 H 18 101/53 L 98 Room Air 12/15/23 07:36 Nasal Cannula 12/15/23 07:36 Nasal Cannula 12/15/23 06:39 Room Air 12/15/23 06:28 91 L Room Air 12/15/23 04:58 Room Air 12/15/23 04:00 90 12/15/23 04:00 98.2 F 99 H 16 86/55 L 93 L Room Air 12/15/23 03:00 Room Air 12/15/23 01:00 Room Air 12/15/23 00:00 99.0 F 95 H 18 110/67 91 L Room Air 12/15/23 00:00 90 12/14/23 23:00 Room Air 12/14/23 21:00 Room Air 12/14/23 20:40 Room Air 12/14/23 20:00 85 12/14/23 20:00 98.1 F 97 H 18 98/63 L 90 L Room Air 12/14/23 18:35 Room Air 12/14/23 17:00 Room Air 12/14/23 16:00 80 12/14/23 15:30 98.6 F 86 17 95/62 L 94 L Room Air 12/14/23 14:53 Room Air 12/14/23 13:00 Room Air 12/14/23 12:00 90 12/14/23 12:00 98.4 F 103 H 20 87/47 L 91 L Room Air 12/14/23 10:48 Room Air 12/14/23 09:00 Nasal Cannula O2 Flow Rate 12/15/23 08:00 12/15/23 07:36 12/15/23 07:36 1 12/15/23 06:39 12/15/23 06:28 12/15/23 04:58 12/15/23 04:00 12/15/23 04:00 12/15/23 03:00 12/15/23 01:00 12/15/23 00:00 12/15/23 00:00 12/14/23 23:00 12/14/23 21:00 12/14/23 20:40 12/14/23 20:00 12/14/23 20:00 12/14/23 18:35 12/14/23 17:00 12/14/23 16:00 12/14/23 15:30 12/14/23 14:53 12/14/23 13:00 12/14/23 12:00 12/14/23 12:00 12/14/23 10:48 12/14/23 09:00 Intake and Output 12/14/23 12/15/23 12/15/23 23:59 07:59 15:59 Intake Total 270 / 1000 Output Total 1300 / 4145 1375 / 1375 Balance -1030 / -3145 -1375 / -1375 Intake: Intake, Oral Amount 270 / 1000 Output: Output, Urine Amount 1300 / 3495 1375 / 1375 Other: Number of Unmeasured Voids 0 Weight 228 lb 13.437 oz Patient Weight 12/15/23 23:59 Weight 228 lb 13.437 oz Laboratory Results - last 24 hr 12/12/23 21:39: Hepatitis C Antibody Non reactive 12/14/23 10:46: POC Glucose 180 H 12/14/23 16:40: POC Glucose 162 H 12/14/23 20:43: POC Glucose 260 H 12/15/23 05:54: WBC 6.6 D, RBC 3.53 L, Hgb 9.5 L, Hct 31.5 L, MCV 89.2, MCH 27.0, MCHC 30.2 L, RDW 25.1 H*, Plt Count 215, MPV 8.2, Neut % (Auto) 77.7, Lymph % (Auto) 12.8, [place] % (Auto) 9.3, Eos % (Auto) 0.1, Baso % (Auto) 0.1, Neut # (Auto) 5.2, Lymph # (Auto) 0.9, [place] # (Auto) 0.6, Eos # (Auto) 0.0, Baso # (Auto) 0.0, Sodium 137, Potassium 2.6 L*, Chloride 98, Carbon Dioxide 34 H, Anion Gap 7.6, BUN 17, Creatinine 1.30 H, Estimated Creat Clear 32, Estimated GFR 41 L, Est GFR ( Amer) 49 L, Glucose 154 H D, Calcium 7.9 L 12/15/23 06:09: POC Glucose 166 H I & O for Labs for Last 24 Hours: Intake & Output 12/12/23 12/13/23 12/14/23 12/15/23 23:59 23:59 23:59 23:59 Intake Total 1195 / 1195 1000 / 1000 Output Total 700 / 700 2660 / 2660 3470 / 4145 1375 / 1375 Balance -700 / -700 -1465 / -1465 -2470 / -3145 -1375 / -1375 Weight 230 lb 229 lb 15.074 oz 230 lb 6.834 oz 228 lb 13.437 oz Constitutional: Present no acute distress Respiratory: Present normal respiratory effort Cardiac: Present Reg Rate and Rhythm GI: Present normal bowel sounds; Absent tenderness Extremities: Present normal inspection and full ROM Skin: Present intact; Absent erythema Neuro: Present Grossly Intact and moves all extremities Assessment and Plan *Assessment and plan (1) Hypoglycemia associated with type 2 diabetes mellitus: Status: Acute Category: Medical Code(s): E11.649 - Type 2 diabetes mellitus with hypoglycemia without coma (2) Compression atelectasis: Status: Acute Category: Medical Code(s): J98.11 - Atelectasis (3) Acute exacerbation of CHF (congestive heart failure): Status: Acute Qualifiers: Heart failure type: unspecified Qualified Code(s): I50.9 - Heart failure, unspecified Category: Medical Code(s): I50.9 - Heart failure, unspecified (4) Ascites: Status: Acute Qualifiers: Ascites type: other type Qualified Code(s): R18.8 - Other ascites Category: Medical Code(s): R18.8 - Other ascites (5) Anasarca: Status: Acute Category: Medical Code(s): R60.1 - Generalized edema (6) Pleural effusion: Status: Acute Category: Medical Code(s): J90 - Pleural effusion, not elsewhere classified (7) Cirrhosis: Status: Acute Qualifiers: Ascites presence: with ascites Hepatic cirrhosis type: unspecified hepatic cirrhosis Qualified Code(s): K74.60 - Unspecified cirrhosis of liver; R18.8 - Other ascites Category: Medical Code(s): K74.60 - Unspecified cirrhosis of liver (8) A-fib: Status: Acute Qualifiers: Atrial fibrillation type: unspecified chronic Qualified Code(s): I48.20 - Chronic atrial fibrillation, unspecified Category: Medical Code(s): I48.91 - Unspecified atrial fibrillation (9) Elevated lactic acid level: Status: Acute Category: Medical Code(s): R79.89 - Other specified abnormal findings of blood chemistry (10) HTN (hypertension): Status: Chronic Qualifiers: Hypertension type: essential hypertension Qualified Code(s): I10 - Essential (primary) hypertension Category: Medical Code(s): I10 - Essential (primary) hypertension (11) COPD (chronic obstructive pulmonary disease): Status: Chronic Qualifiers: COPD type: unspecified COPD Qualified Code(s): J44.9 - Chronic obstructive pulmonary disease, unspecified Category: Medical Code(s): J44.9 - Chronic obstructive pulmonary disease, unspecified (12) Hypothyroid: Status: Chronic Qualifiers: Hypothyroidism type: unspecified Qualified Code(s): E03.9 - Hypothyroidism, unspecified Category: Medical Code(s): E03.9 - Hypothyroidism, unspecified (13) Hyperlipidemia: Status: Chronic Qualifiers: Hyperlipidemia type: mixed hyperlipidemia Qualified Code(s): E78.2 - Mixed hyperlipidemia Category: Medical Code(s): E78.5 - Hyperlipidemia, unspecified (14) Acute on chronic HFrEF (heart failure with reduced ejection fraction): Status: Acute Category: Medical Code(s): I50.23 - Acute on chronic systolic (congestive) heart failure (15) Elevated brain natriuretic peptide (BNP) level: Status: Acute Category: Medical Code(s): R79.89 - Other specified abnormal findings of blood chemistry (16) Anemia: Status: Acute Category: Medical Code(s): D64.9 - Anemia, unspecified (17) Hypokalemia: Status: Acute Category: Medical Code(s): E87.6 - Hypokalemia Plan Patient is improving, continue diuresis, replace potassium, OOB to chair today.
[2023-12-15] MEDS: POTASSIUM CHLORIDE 20 MEQ, LIDOCAINE HCL/PF 3 ML in 0.9 % SODIUM CHLORIDE 100 ML 56.5 MEQ IV (08:56)
[2023-12-15] MEDS: POTASSIUM CHLORIDE 20MEQ TAB 40 MEQ PO ×2 (08:57→20:03)
[2023-12-15] MEDS: VENLAFAXINE XR 75MG CAPSULE 75 MG PO (08:57)
[2023-12-15] MEDS: FUROSEMIDE 100MG/10ML VIAL 80 MG IV ×2 (08:57→16:45)
[2023-12-15] MEDS: SACUBITRIL/VALSARTAN 24-26MG TABLET 1 EACH PO ×2 (08:57→20:03)
[2023-12-15] MEDS: METOPROLOL SUCCINATE XL 25MG TABLET 25 MG PO (08:57)
[2023-12-15] MEDS: SPIRONOLACTONE 25MG TABLET 25 MG PO (08:57)
[2023-12-15] MEDS: EMPAGLIFLOZIN 10MG TABLET 10 MG PO (08:57)
[2023-12-15 11:32] LABS: POC Glucose,Bedside 211 (70-110)
[2023-12-15 16:03] LABS: POC Glucose,Bedside 210 (70-110)
--- NOTE | 2023-12-15 16:11 | PC.NURSE ---
pt is resting in bed. alert and oriented x4. tolerated sitting up in the chair for several hours this shift. bath and linen change this shift. pt has diuresed well. lung sounds diminished. abdomen soft/non tender with active bowel sounds. swelling noted to ble. will continue to monitor.
[2023-12-15] MEDS: RIVAROXABAN 15MG TABLET 15 MG PO (16:45)
[2023-12-15] MEDS: ATORVASTATIN 40MG TABLET 40 MG PO (20:03)
[2023-12-15 20:20] LABS: POC Glucose,Bedside 218 (70-110)
[2023-12-16] VITALS (8 sets, daily range): BP systolic 88–103; BP diastolic 52–73; PULSE 88–112; RESP 15–18; TEMP 36.5–36.9; O2SAT 94–100; BMI 46.7
[2023-12-16] MEDS: ACETAMINOPHEN 325MG TAB 650 MG PO (05:17)
--- NOTE | 2023-12-16 05:37 | PC.NURSE ---
Called to patients room for complaints of extreme pain/burning with skinner. Patient states she normally has a high pain tolerance, but this pain/burning was a 9/10 and requested skinner be removed. Patient states she is continent of bowel/bladder and will use call light when she needs to use bedside commode. Skinner removed and patients genital area was washed/dried and powder was applied to skin folds due to redness.
[2023-12-16] MEDS: LEVOTHYROXINE 137MCG (0.137MG) TAB 137 MCG PO (06:01)
[2023-12-16 06:08] LABS: POC Glucose,Bedside 172 (70-110)
[2023-12-16] MEDS: FLUTICASONE/SALMETEROL 250/50MCG DISKUS 1 PUFF IH ×2 (06:50→18:11)
[2023-12-16 07:24] LABS: Basophils % 0.1 % (0.1-2.0); Eosinophils % 0.2 % (0.1-12.0); Hematocrit 31.4 % (37.0-47.0); Hemoglobin 9.6 g/dL (12.2-16.2); Lymphocytes # 0.8 K/mm3 (0.7-4.5); Lymphocytes % 15.9 % (10-50); Mean Corpuscular HGB Conc 30.7 g/dL (31.8-35.4); Mean Corpuscular Hemoglobin 27.6 pg (27.0-31.2); Mean Platelet Volume 8.1 fl (7.4-10.4); Monocytes # 0.6 K/mm3 (0.1-1.0); Monocytes % 10.5 % (1.7-9.3); Neutrophils # 3.9 K/mm3 (1.8-7.8); Neutrophils % 73.4 % (37.0-80.0); Platelet Count 218 K/mm3 (142-424); Red Blood Count 3.49 M/mm3 (4.20-5.40); Red Cell Distribution Width 24.9 % (11.5-17.5); White Blood Count 5.3 K/mm3 (4.8-10.8)
[2023-12-16 07:29] LABS: Chloride 96 mmol/L (98-107); Potassium 3.2 mmoL/L (3.5-5.1); Sodium 138 mmol/L (136-145)
[2023-12-16 07:32] LABS: Anion Gap 8.2 mEq/L (5-15); Blood Urea Nitrogen 19 mg/dl (7-17); Carbon Dioxide 37 mmol/L (22.0-30.0); Creatinine Clearance Estimated 29 mL/min (50-200); Estimated Glomerular Filt Rate 38 ml/min (>60); GFR (African American) 45 ML/MIN (>60)
[2023-12-16 07:33] LABS: Calcium 7.8 mg/dl (8.4-10.2); Glucose 159 mg/dl (74-100)
--- NOTE | 2023-12-16 08:20 | P.PN_ITS ---
Subjective *Date: 12/16/23 *Time: 08:47 Interval history: Today's blood chemistries show potassium has increased to 3.2. BUN is 19 and creatinine is 1.4. H&H are stable. Urine culture shows strep to agalactiae with a colony count of 50-60,000. Blood culture shows no growth after 5 days echocardiogram revealed the following: Conclusion Severe reduction in LV systolic function (LVEF 15%). Asynchronous septum. Septal flattening is also noted, consistent with elevated right-sided pressures. Severe RV dilation with severe reduction in RV function. Biatrial dilation. Severe TR. Tethered posterior MV leaflet with moderate MR (Ashly class IIIB). Mild AI, Mild PI. RVSP is 50-55 mmHg. Pleural effusions. Patient states she feels so much better. She denies any chest pain and is breathing easily. She is eating well. Bowels have not moved for several days. She is voiding QS. Medical Exam Vital signs and Labs for Last 24 Hours: Vital Signs Temp Pulse Pulse Resp BP Pulse Ox O2 Del Method 12/16/23 07:59 97.7 F 98 H 18 91/52 L 98 Room Air 12/16/23 06:46 Room Air 12/16/23 05:00 Room Air 12/16/23 04:00 90 12/16/23 04:00 98.2 F 108 H 16 93/53 L 94 L Room Air 12/16/23 03:00 Room Air 12/16/23 01:00 Room Air 12/16/23 00:00 90 12/16/23 00:00 98.4 F 98 H 17 103/73 L 100 Room Air 12/15/23 22:56 Room Air 12/15/23 21:00 Room Air 12/15/23 20:00 95 H 12/15/23 20:00 98.1 F 99 H 18 125/69 94 L Room Air 12/15/23 19:56 Room Air 12/15/23 18:11 Room Air 12/15/23 17:00 Room Air 12/15/23 16:00 80 12/15/23 16:00 91 L Room Air 12/15/23 15:54 98.1 F 90 18 99/64 L 91 L Room Air 12/15/23 15:00 Room Air 12/15/23 13:00 Room Air 12/15/23 12:00 100 H 12/15/23 11:34 98.5 F 104 H 18 97/67 L 96 Room Air 12/15/23 11:00 Room Air Intake and Output 12/15/23 12/16/23 12/16/23 19:59 03:59 11:59 Intake Total 740 / 740 Output Total 2200 / 2200 1800 / 4000 280 / 4280 Balance -1460 / -1460 -1800 / -3260 -280 / -3540 Intake: Intake, Oral Amount 740 / 740 Output: Output, Urine Amount 2200 / 2200 1800 / 4000 280 / 4280 Other: Number of Unmeasured Voids 0 Weight 253 lb 14.4 oz Patient Weight 12/16/23 11:59 Weight 253 lb 14.4 oz Laboratory Results - last 24 hr 12/15/23 05:54: Anion Gap 7.6, Estimated Creat Clear 32, Estimated GFR 41 L, Est GFR ( Amer) 49 L 12/15/23 11:12: POC Glucose 211 H 12/15/23 15:56: POC Glucose 210 H 12/15/23 20:03: POC Glucose 218 H 12/16/23 06:00: POC Glucose 172 H 12/16/23 06:33: WBC 5.3, RBC 3.49 L, Hgb 9.6 L, Hct 31.4 L, MCV 90.0, MCH 27.6, MCHC 30.7 L, RDW 24.9 H, Plt Count 218, MPV 8.1, Neut % (Auto) 73.4, Lymph % (Auto) 15.9, [place] % (Auto) 10.5 H, Eos % (Auto) 0.2, Baso % (Auto) 0.1, Neut # (Auto) 3.9, Lymph # (Auto) 0.8, [place] # (Auto) 0.6, Eos # (Auto) 0.0, Baso # (Auto) 0.0, Sodium 138, Potassium 3.2 L D, Chloride 96 L, Carbon Dioxide 37 H, Anion Gap 8.2, BUN 19 H, Creatinine 1.40 H, Estimated Creat Clear 29, Estimated GFR 38 L, Est GFR ( Amer) 45 L, Glucose 159 H, Calcium 7.8 L I & O for Labs for Last 24 Hours: Intake & Output 12/13/23 12/14/23 12/15/23 12/16/23 11:59 11:59 11:59 11:59 Intake Total 535 / 535 1090 / 1090 870 / 870 740 / 740 Output Total 1400 / 1400 3230 / 3230 3575 / 3575 4280 / 4280 Balance -865 / -865 -2140 / -2140 -2705 / -2705 -3540 / -3540 Weight 229 lb 15.991 oz 230 lb 6.834 oz 228 lb 13.437 oz 253 lb 14.4 oz Constitutional: Present no acute distress Comment:: Sitting up at bedside and has completed her breakfast. She ate everything on her tray. Respiratory: Present crackles (Few right base crackles) Cardiac: Present Reg Rate and Rhythm GI: Present soft and normal bowel sounds; Absent tenderness Extremities: Present edema (1-2+ pitting edema); Absent tenderness Neuro: Present alert, awake and oriented x 3 Assessment and Plan *Assessment and plan (1) Hypoglycemia associated with type 2 diabetes mellitus: Status: Acute Category: Medical Code(s): E11.649 - Type 2 diabetes mellitus with hypoglycemia without coma (2) Compression atelectasis: Status: Acute Category: Medical Code(s): J98.11 - Atelectasis (3) Acute exacerbation of CHF (congestive heart failure): Status: Acute Qualifiers: Heart failure type: unspecified Qualified Code(s): I50.9 - Heart failure, unspecified Category: Medical Code(s): I50.9 - Heart failure, unspecified (4) Ascites: Status: Acute Qualifiers: Ascites type: other type Qualified Code(s): R18.8 - Other ascites Category: Medical Code(s): R18.8 - Other ascites (5) Anasarca: Status: Acute Category: Medical Code(s): R60.1 - Generalized edema (6) Pleural effusion: Status: Acute Category: Medical Code(s): J90 - Pleural effusion, not elsewhere classified (7) Cirrhosis: Status: Acute Qualifiers: Ascites presence: with ascites Hepatic cirrhosis type: unspecified hepatic cirrhosis Qualified Code(s): K74.60 - Unspecified cirrhosis of liver; R18.8 - Other ascites Category: Medical Code(s): K74.60 - Unspecified cirrhosis of liver (8) A-fib: Status: Acute Qualifiers: Atrial fibrillation type: unspecified chronic Qualified Code(s): I48.20 - Chronic atrial fibrillation, unspecified Category: Medical Code(s): I48.91 - Unspecified atrial fibrillation (9) Elevated lactic acid level: Status: Acute Category: Medical Code(s): R79.89 - Other specified abnormal findings of blood chemistry (10) HTN (hypertension): Status: Chronic Qualifiers: Hypertension type: essential hypertension Qualified Code(s): I10 - Essential (primary) hypertension Category: Medical Code(s): I10 - Essential (primary) hypertension (11) COPD (chronic obstructive pulmonary disease): Status: Chronic Qualifiers: COPD type: unspecified COPD Qualified Code(s): J44.9 - Chronic obstructive pulmonary disease, unspecified Category: Medical Code(s): J44.9 - Chronic obstructive pulmonary disease, unspecified (12) Hypothyroid: Status: Chronic Qualifiers: Hypothyroidism type: unspecified Qualified Code(s): E03.9 - Hypothyroidism, unspecified Category: Medical Code(s): E03.9 - Hypothyroidism, unspecified (13) Hyperlipidemia: Status: Chronic Qualifiers: Hyperlipidemia type: mixed hyperlipidemia Qualified Code(s): E78.2 - Mixed hyperlipidemia Category: Medical Code(s): E78.5 - Hyperlipidemia, unspecified (14) Acute on chronic HFrEF (heart failure with reduced ejection fraction): Status: Acute Category: Medical Code(s): I50.23 - Acute on chronic systolic (congestive) heart failure (15) Elevated brain natriuretic peptide (BNP) level: Status: Acute Category: Medical Code(s): R79.89 - Other specified abnormal findings of blood chemistry (16) Anemia: Status: Acute Category: Medical Code(s): D64.9 - Anemia, unspecified (17) Hypokalemia: Status: Acute Category: Medical Code(s): E87.6 - Hypokalemia Plan Patient continues to improve. Potassium has improved. She continues to be followed by pulmonology and cardiology. Dr. Ortiz entry - Saw patient, agree with above note. She has improved with diuresis. Plan PT/OT evaluation today for rehab needs.
[2023-12-16] MEDS: SACUBITRIL/VALSARTAN 24-26MG TABLET 1 EACH PO ×2 (08:24→21:12)
[2023-12-16] MEDS: EMPAGLIFLOZIN 10MG TABLET 10 MG PO (08:24)
[2023-12-16] MEDS: SPIRONOLACTONE 25MG TABLET 25 MG PO (08:24)
[2023-12-16] MEDS: FUROSEMIDE 100MG/10ML VIAL 80 MG IV (08:24)
[2023-12-16] MEDS: METOPROLOL SUCCINATE XL 25MG TABLET 25 MG PO (08:24)
[2023-12-16] MEDS: POTASSIUM CHLORIDE 20MEQ TAB 40 MEQ PO ×2 (08:24→21:13)
[2023-12-16] MEDS: VENLAFAXINE XR 75MG CAPSULE 75 MG PO (08:24)
--- NOTE | 2023-12-16 08:54 | XR_ITS ---
PROCEDURE INFORMATION: Exam: XR Chest Exam date and time: 12/16/2023 9:20 AM Age: 68 years old Clinical indication: Cough and shortness of breath; Additional info: Chf, copd TECHNIQUE: Imaging protocol: Radiologic exam of the chest. Views: 1 view. COMPARISON: CT ANGIO CHEST PE PROTOCOL 12/12/2023 9:08 PM FINDINGS: Lungs: There is opacity at the right lung base. Pleural spaces: No pneumothorax. Heart/Mediastinum: Unremarkable. No cardiomegaly. Bones/joints: Unremarkable. IMPRESSION: Opacity, right lung base likely representing effusion and/or parenchymal disease.
[2023-12-16 09:24] LABS: NT Pro Brain Natriuretic Pep. 7040 pg/mL (0-125)
--- NOTE | 2023-12-16 09:39 | P.PN_ITS ---
Subjective *Date: 12/16/23 *Time: 13:10 Interval history: No acute respiratory vents over the weekend. Patient admits continued improvement in her respiratory symptoms. Pulmonology Exam Inpatient Vital signs and Labs for Last 24 Hours: Temp Pulse Resp BP Pulse Ox O2 Del Method O2 Flow Rate 97.7 F 98 H 18 91/52 L 98 Room Air 1 12/16/23 07:59 12/16/23 07:59 12/16/23 07:59 12/16/23 07:59 12/16/23 07:59 12/16/23 07:59 12/15/23 07:36 FiO2 2 12/13/23 02:00 Laboratory Results - last 24 hr 12/15/23 11:12: POC Glucose 211 H 12/15/23 15:56: POC Glucose 210 H 12/15/23 20:03: POC Glucose 218 H 12/16/23 06:00: POC Glucose 172 H 12/16/23 06:33: WBC 5.3, RBC 3.49 L, Hgb 9.6 L, Hct 31.4 L, MCV 90.0, MCH 27.6, MCHC 30.7 L, RDW 24.9 H, Plt Count 218, MPV 8.1, Neut % (Auto) 73.4, Lymph % (Auto) 15.9, [place] % (Auto) 10.5 H, Eos % (Auto) 0.2, Baso % (Auto) 0.1, Neut # (Auto) 3.9, Lymph # (Auto) 0.8, [place] # (Auto) 0.6, Eos # (Auto) 0.0, Baso # (Auto) 0.0, Sodium 138, Potassium 3.2 L D, Chloride 96 L, Carbon Dioxide 37 H, Anion Gap 8.2, BUN 19 H, Creatinine 1.40 H, Estimated Creat Clear 29, Estimated GFR 38 L, Est GFR ( Amer) 45 L, Glucose 159 H, Calcium 7.8 L Temp Pulse Resp BP Pulse Ox O2 Del Method O2 Flow Rate 98.6 F 96 H 20 110/49 L 99 Nasal Cannula 2 12/13/23 08:00 12/13/23 08:00 12/13/23 08:00 12/13/23 08:00 12/13/23 08:00 12/13/23 09:00 12/13/23 09:00 FiO2 2 12/13/23 02:00 Laboratory Results - last 24 hr 12/12/23 20:25: WBC 7.1, RBC 4.15 L, Hgb 11.1 L, Hct 36.3 L, MCV 87.4, MCH 26.6 L, MCHC 30.5 L, RDW 25.1 H*, Plt Count 253, MPV 9.0, Neut % (Auto) 74.1, Lymph % (Auto) 15.4, [place] % (Auto) 10.0 H, Eos % (Auto) 0.3, Baso % (Auto) 0.3, Neut # (Auto) 5.2, Lymph # (Auto) 1.1, [place] # (Auto) 0.7, Eos # (Auto) 0.0, Baso # (Auto) 0.0, Sodium 136, Potassium 3.5, Chloride 102, Carbon Dioxide 25, Anion Gap 12.5, BUN 21 H, Creatinine 1.40 H, Estimated Creat Clear 31, Estimated GFR 38 L, Est GFR ( Amer) 45 L, Glucose 33 L*, Hemoglobin A1c 5.6, Calcium 8.6, Phosphorus 3.7, Magnesium 1.7, Total Bilirubin 1.2, AST 38 H, ALT 13, Alkaline Phosphatase 99, NT-Pro-B Natriuret Pep 8260 H, Total Protein 7.5, Albumin 3.8, Globulin 3.7 H, Albumin/Globulin Ratio 1.0 L, Lipase 87, Acetone Level None detected 12/12/23 20:36: VBG pH 7.41, VBG pCO2 41.1, VBG pO2 163.4 H, VBG HCO3 25.5, VBG Total CO2 26.7, VBG O2 Saturation 99.5 H, VBG Base Excess 0.8, VBG Lactic Acid 2.4 H 12/12/23 21:31: Urine Color Yellow, Urine Appearance Clear, Urine pH 6.0, Ur Specific [place] 1.015, Urine Protein Negative, Urine Glucose (UA) 2+, Urine Ketones Negative, Urine Blood Negative, Urine Nitrate Negative, Urine Bilirubin Negative, Urine Urobilinogen 0.2, Ur Leukocyte Esterase Negative, Urine WBC 3-5, Ur Squamous Epith Cells 3-5, Urine Bacteria 1+, Hyaline Casts 5-10, Urine Mucus 1+ 12/12/23 21:39: HIV 1&2 Antibody Rapid Nonreactive 12/12/23 23:05: PT 15.8 H, INR 1.47 H 12/12/23 23:06: POC Glucose 87 12/13/23 00:03: POC Glucose 89 12/13/23 01:09: Lactate 1.1 12/13/23 01:15: POC Glucose 79 12/13/23 03:15: POC Glucose 74 12/13/23 04:48: POC Glucose 67 L 12/13/23 06:30: POC Glucose 64 L 12/13/23 07:24: POC Glucose 67 L 12/13/23 08:01: POC Glucose 94 12/13/23 08:15: Chlamy pneumoniae PCR Not detected, Adenovirus (PCR) Not detected, B. pertussis DNA (PCR) Not detected, Coronavirus OC43 (PCR) Not detected, Coronavirus HKU1 (PCR) Not detected, Coronavirus 229E (PCR) Not detected, SARS-CoV-2 (PCR) Not detected, Coronavirus NL63 (PCR) Not detected, Human Metapneumovir PCR Not detected, Influenza A (H1) PCR Not detected, Influ A (H1N1/09) PCR Not detected, Influenza A (H3) PCR Not detected, Influenza Type A (PCR) Not detected, Influenza Type B (PCR) Not detected, M. pneumoniae (PCR) Not detected, Parainfluenza 1 (PCR) Not detected, Parainfluenza 2 (PCR) Not detected, Parainfluenza 3 (PCR) Not detected, Parainfluenza 4 (PCR) Not detected, RSV (PCR) Not detected, Entero/Rhino (PCR) Not detected 12/13/23 09:07: POC Glucose 80 12/13/23 10:05: POC Glucose 64 L I & O for Labs for Last 24 Hours: Intake & Output 12/13/23 12/14/23 12/15/23 12/16/23 23:59 23:59 23:59 23:59 Intake Total 1195 / 1195 1000 / 1000 1040 / 1040 550 / 550 Output Total 2660 / 2660 3470 / 4145 4800 / 4800 855 / 855 Balance -1465 / -1465 -2470 / -3145 -3760 / -3760 -305 / -305 Weight 229 lb 15.074 oz 230 lb 6.834 oz 228 lb 13.437 oz 253 lb 14.4 oz Intake & Output 12/10/23 12/11/23 12/12/23 12/13/23 23:59 23:59 23:59 23:59 Intake Total 535 / 535 Output Total 700 / 700 700 / 700 Balance -700 / -700 -165 / -165 Weight 230 lb 229 lb 15.991 oz Constitutional: Present mild distress Head: Present normocephalic and atraumatic ENT: Present normal exam, normal oropharynx and mucous membranes moist Neck: Present normal inspection and full ROM Respiratory: Present diminished air movement and able to speak in complete sentences; Absent prolonged expiratory phase, respiratory distress or wheezes Cardiac: Present S1/S2, Tachycardia and radial pulses present GI: Present soft and distention; Absent tenderness or guarding Rectal (female): Present deferred (female): Present deferred Skin: Present intact; Absent cyanosis or jaundice Neuro: Present alert, awake and oriented x 3 Extremities: Present normal inspection; Absent clubbing or cyanosis Psychiatric: Present normal affect and cooperative Assessment and Plan *Assessment and plan (1) Pleural effusion: Status: Acute Category: Medical Code(s): J90 - Pleural effusion, not elsewhere classified (2) Asthma: Status: Acute Category: Medical Code(s): J45.909 - Unspecified asthma, uncomplicated Plan Current is a 68-year-old female never smoker, carries a diagnosis of asthma on Advair 250 inhaler with good symptom control at baseline reported history of CHF with reduced EF, asthma COPD overlap syndrome, hypertension, dyslipidemia atrial fibrillation presented to the ER with worsening respiratory distress and pulmonary was called for further evaluation management. CTA upon admission no evidence of pulmonary embolism. Right pleural effusion noted with adjavcent atelectasis . No other dense consolidative/airspace changes noted. CT abdomen also showed ascites and patient has a recent diagnosis of liver cirrhosis Afebrile. Hemodynamically stable. Comprehensive respiratory viral PCR panel negative. On initial examination patient appeared to be in mild respiratory distress. On 2 L saturating 100%. No significant wheezing noted on auscultation with decreased breath sounds left lung martinez. Given patient is not having any severe respiratory distress and oxygen requirements weaned to room air, no emergent need for thoracentesis at this point of time. Recommend to continue diuretic regimen for decopensated liver cirrhosis. Interval update: No acute respiratory vents over the weekend. On room air this morning saturating 95% and above. No respiratory distress appreciated. Chest x-ray from this morning, no acute change from prior, continue to show right-sided effusion. Continue to receive diuretics. Plan: No need for thoracentesis at this point of time given continued improvement in her respiratory status with diuretic regimen. Will follow in the clinic in 2 to 3 weeks with repeat chest x-ray PA and lateral to further determine the need for thoracentesis. Incentive spirometry Advair 250 daily DuoNebs every 6 as needed # Thank you for involving pulmonary in this patient care. Will follow the patient in pulmonary clinic in 2 to 3 weeks with chest x-ray PA and lateral prior to clinic visit
--- NOTE | 2023-12-16 09:43 | HMH.PTEV ---
Physical Therapy Evaluation Rehab PT IP Evaluation Start: 12/16/23 08:48 Freq: ONCE Status: Active Protocol: Document 12/16/23 09:35 BYRON (Rec: 12/16/23 09:43 BYRON [id number]) Subjective/History History History Per H&P: In summary patient is a 68-year-old female who presents to the emergency department for evaluation of dyspnea and low blood sugar. Patient is hemodynamically stable upon arrival, hypothermic 94.8 however her [place] Coma Score is currently 13 and she appears lethargic. Physical exam shows a morbidly obese, with a BMI of 42, 68-year-old female although slightly lethargic does not appear to be in acute distress. Auscultation of breath sounds reveals significantly diminished breath sounds at the right base with some rales, normal heart sounds no abdominal pain on palpation with distant but present bowel sounds. Differential diagnosis includes therapeutic misadventure, ACS, CHF, infection, PE etc. Initial workup will be conducted with hematologic labs plain film chest x-ray CT scan PE protocol CT scan abdomen pelvis urinalysis.. Initial interventions include DuoNeb and Decadron, D50 for a fingerstick blood sugar of 45 on arrival. Initial workup reviewed by me shows a normal white count with no shift, venous blood gas with a pH of 7.41 with a venous lactic acid of 2.4, chronic kidney disease with creatinine of 1.4 and NT proBNP of 8260 which is significantly elevated from October which was 5270 a bland urinalysis and my informal interpretation of her CT scan shows significant pleural effusion with compressive atelectasis of the right lower lobe significantly progressed since imaging that I reviewed in October, anasarca, significant ascites, signs of hepatic cirrhosis as well as a left-sided pleural effusion.. Upon repeat evaluation patient responded to resuscitation and is now mentating with a [place] Coma Score 15 although she remains hypothermic she is being rewarmed, she is still requiring oxygen. Given that she has a history of heart failure and cirrhosis and unsure whether this represents CHF or hepatic hydrothorax although I favor the latter. Given this I had interactive discussion with Dr. Jacome about patient management and she will be admitted for Dr. Ortiz for further evaluation and care. Given her radiographic findings I gave her a dose of Lasix and ordered a Saravia insertion for accurate output. (above as per ER physician) Subjective Subjective Pt reports she lives in a single-story home alone with no JAYSON. Pt used a w/c for most mobility and was IND with w/c transfers and mobility. Pt walked short distances a few steps with RW. New diagnosis of cancer in past 12 No months? Rehab PT IP Eval Objective Appearance Patient Behavior Appropriate,Cooperative Patient Orientation Person,Place Difficulty following instructions none Speech Pattern Clear Ambulation Patient Able to Ambulate Yes Ambulation Observation Ambulation Distance (feet) 2 Ambulation Ability Contact Guard/Hand Hold Balance Ability to Arise Able, uses arms to help Sitting Balance Steady, safe Standing Balance Steady, wide stance Transfers Sit to Stand Bed Transfer Ability Supervision/Stand by Rehab PT IP prob,goals,plan Problems Date of Evaluation: 12/16/23 Rehab Potential Rehab Potential Innapropriate for Skilled Therapy Discharge Plan PT Discharge Plan Pt able to demo transfer from chair and was able to ambulate a 2-3 steps with CGA. Pt is at her baseline mobility and is not appropriate for skilled acute-care PT at this time. PT services recommended for general strengthening. Eval Complexity Eval Charge Codes 73683 - Moderate Complexity PHYSICIAN CERTIFICATION: I certify the specified therapy services for Margi Dunn are required, authorized, and reviewed every 30 days.
--- NOTE | 2023-12-16 10:00 | HMH.OTEV ---
OT Inpatient Evaluation Rehab OT IP Evaluation Start: 12/16/23 08:48 Freq: ONCE Status: Active Protocol: Document 12/16/23 09:[facility] (Rec: 12/16/23 09:59 [facility] [id number]) Rehab OT IP Assessment Subjective History Pt oriented x 3 on arrival. Pt agreeable to engage in therapy evaluation. Pt admitted on 12/12/23 due to hypoglycemia and CHF. History and physical: Patient presents for evaluation of dyspnea and hypoglycemia. Patient originally called EMS for difficulty breathing. On arrival however they found the patient lethargic and noted that her blood sugar was 65. They gave her oral glucose en route. She arrives on nasal cannula at 3 L/min but is not normally on oxygen. Patient was slightly obtunded could answer questions and follow commands but was not quite sure of the events of today. She lives alone. She denies chest pain fever chills hemoptysis hematochezia melena but reports shortness of breath. She denies overdosing her medication but also states that she has not eaten today. She is a type II diabetic, she also is a recently diagnosed cirrhotic with anasarca and ascites. She is not non-insulin- dependent type II diabetic. Subjective I live by myself. Pt reports prior to being in the hospital, pt lives at home alone. Pt claims normally she uses a manual w/c for functional transfers, but is able to transfer to and from w /c independently. Pt claims to be independent with all ADLs. She also claims to be independent with IADLs such as light cleaning and cooking. Pt's son does come and assist with IADLs when needed. Pt lives in a single story home with no steps. Objective Patient Orientation Person,Place,Birthday Right Upper Extremity Gross ROM WFL Left Upper Extremity Gross ROM WFL Transfer Training Sit/Stand Transfer Assist Level Contact Guard/Hand Hold Chair Transfer Ability Contact Guard/Hand Hold Chair Transfer Technique Sit to/from Ambulatory Chair Transfer Assistive Devices None Rehab OT IP prob,goals,plan Problems Date of Evaluation: 12/16/23 Rehab Potential Rehab Potential Innapropriate for Skilled Therapy Discharge Plan OT Discharge Plan Pt appears to be at baseline with functional transfers and ADL independence. Pt can return home once medially stable per physician. Therapist recommends HH evaluation upon returning home for environmental safety. Eval Complexity Eval Charge Codes 78490 - Low Complexity PHYSICIAN CERTIFICATION: I certify the specified therapy services for Margi Isiah Current are required, authorized, and reviewed every 30 days.
--- NOTE | 2023-12-16 10:16 | SW/DCPLANNER ---
Addendum entered by Fabby Forte 12/18/23 15:01: Patient information/order has been faxed to [facility]. Original Note: I spoke w/ this patient regarding plans once medically stable for discharge. PT/OT evaluated patient and recommended home w/ home health services at time of discharge. Patient is agreeable to return home w/ home health services and does not have an agency preference. I will set up home health once MD states patient is ready for discharge. Discharge date is unknown at this time.
--- NOTE | 2023-12-16 11:10 | EXP.CARD.PN ---
Subjective Subjective Date: 12/16/23 Time: 10:00 Interval history: Pt diuresed 9L over the weekend. Feeling back to her baseline. Now states she is interested in SEED LABORATORY ASSISTANT-D. Exam Data for Last 24 hours Vital signs and Labs for Last 24 Hours: Temp Pulse Resp BP Pulse Ox O2 Del Method O2 Flow Rate 97.7 F 90 18 91/52 L 98 Room Air 1 12/16/23 07:59 12/16/23 08:00 12/16/23 07:59 12/16/23 07:59 12/16/23 07:59 12/16/23 09:00 12/15/23 07:36 FiO2 2 12/13/23 02:00 Laboratory Results - last 24 hr 12/15/23 11:12: POC Glucose 211 H 12/15/23 15:56: POC Glucose 210 H 12/15/23 20:03: POC Glucose 218 H 12/16/23 06:00: POC Glucose 172 H 12/16/23 06:33: WBC 5.3, RBC 3.49 L, Hgb 9.6 L, Hct 31.4 L, MCV 90.0, MCH 27.6, MCHC 30.7 L, RDW 24.9 H, Plt Count 218, MPV 8.1, Neut % (Auto) 73.4, Lymph % (Auto) 15.9, [place] % (Auto) 10.5 H, Eos % (Auto) 0.2, Baso % (Auto) 0.1, Neut # (Auto) 3.9, Lymph # (Auto) 0.8, [place] # (Auto) 0.6, Eos # (Auto) 0.0, Baso # (Auto) 0.0, Sodium 138, Potassium 3.2 L D, Chloride 96 L, Carbon Dioxide 37 H, Anion Gap 8.2, BUN 19 H, Creatinine 1.40 H, Estimated Creat Clear 29, Estimated GFR 38 L, Est GFR ( Amer) 45 L, Glucose 159 H, Calcium 7.8 L, NT-Pro-B Natriuret Pep 7040 H I & O for Last 24 hours: Intake & Output 12/13/23 12/14/23 12/15/23 12/16/23 23:59 23:59 23:59 23:59 Intake Total 1195 / 1195 1000 / 1000 1040 / 1040 550 / 550 Output Total 2660 / 2660 3470 / 4145 4800 / 4800 1205 / 1205 Balance -1465 / -1465 -2470 / -3145 -3760 / -3760 -655 / -655 Weight 229 lb 15.074 oz 230 lb 6.834 oz 228 lb 13.437 oz 253 lb 14.4 oz Constitutional Constitutional: no acute distress, obese and cooperative *Routine HEENT Exam Eye: Present PERRL *Routine Respiratory Exam Respiratory: Present CTA bilaterally; Absent accessory muscle use, wheezes or crackles *Routine Cardiovascular Exam Cardiovascular: Present RRR, Normal S1 and Normal S2; Absent murmur, gallop or rubs *Routine Abdominal Exam Abdominal: Present soft; Absent tenderness *Routine Extremities Exam Extremities: Present pulses intact; Absent cyanosis or edema *Routine Skin Exam Skin: Present intact; Absent erythema or wounds *Routine Neurological Exam Neurological: Present alert and oriented X3 Routine Psychiatric Exam Psychiatric: Present cooperative Progress Note: A&P Assessment and plan (1) Pleural effusion: Status: Acute (2) Asthma: Status: Acute (3) Acute on chronic HFrEF (heart failure with reduced ejection fraction): Status: Acute (4) A-fib: Status: Acute Assessment and Plan Assessment and Plan for All Diagnoses:: NIDCM/HFrEF - known dx, 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 Continue Entresto, Aldactone, Jardiance. - Pt has been given LifeVest previously which she did not wear. We recommended SEED LABORATORY ASSISTANT-D last February but she was not interested and did not f/u in office. She has been admitted for HF at least twice yearly. I discussed SEED LABORATORY ASSISTANT-D may improve daily functional capacity and reduce hospitalizations and she would now like to proceed and states she is willing to f/u in office. Valvular Heart Disease - Mod MR due to tethered posterior MV leaflet - Severe TR - continue diuresis - monitor MV q6 mo Severe Right Heart Failure - Severe RV Dilation and Pulm Htn, likely secondary to severe LHF - Needs aggressive weight loss, treatment of sleep apnea, and SEED LABORATORY ASSISTANT-D Permanent A-fib - chronic and rate controlled - continue Metoprolol and renally adjusted Xarelto - consider CARLOS/DCCV at time of SEED LABORATORY ASSISTANT-D if she proceeds CKD - Cr 1.3 Morbid Obesity, BMI 46 - consider OP GLP-1 Noncompliance - pt admitted December and February and did not f/u in office either time despite recommendations - we discussed that to improve daily functional capacity and reduce hospitalizations she should take meds, obtain SEED LABORATORY ASSISTANT-D and f/u as recommended, morbidity/mortality risk is severely elevated *Will discuss with Boris/Kasey about whether to attempt SEED LABORATORY ASSISTANT-D this admission.
--- NOTE | 2023-12-16 18:16 | PC.NURSE ---
AOX4, SITTING UP TO CHAIR AT TIME OF WRITING. PT DID VOID MULTIPLE TIMES THIS SHIFT. SHE IS NOT REQUIRING O2 SUPPORT.
[2023-12-16] MEDS: 0.9 % SODIUM CHLORIDE 500 ML IV (18:26)
[2023-12-16] MEDS: ATORVASTATIN 40MG TABLET 40 MG PO (21:12)
[2023-12-17] VITALS (20 sets, daily range): BP systolic 80–130; BP diastolic 47–70; PULSE 60–110; RESP 16–22; TEMP 36.5–36.8; O2SAT 91–99; BMI 45.9
[2023-12-17] MEDS: FLUTICASONE/SALMETEROL 250/50MCG DISKUS 1 PUFF IH ×2 (06:20→20:12)
--- NOTE | 2023-12-17 07:57 | P.PN_ITS ---
Subjective *Date: 12/17/23 *Time: 08:44 Interval history: Patient awakened for visit. She states that she had a good day yesterday. She sat up in the chair most of the day and tolerated well. She states her breathing is good. She denies chest pain. After discussing with cardiology she has decided to have this PERFORMING [employer] MANAGER/D placed. She says this is scheduled for today. Bowels did move yesterday. She is voiding QS. Medical Exam Vital signs and Labs for Last 24 Hours: Vital Signs Temp Pulse Pulse Resp BP Pulse Ox O2 Del Method 12/17/23 07:39 Room Air 12/17/23 07:39 Nasal Cannula 12/17/23 07:00 Room Air 12/17/23 06:21 91 L Room Air 12/17/23 04:48 100 H 12/17/23 04:41 Room Air 12/17/23 04:00 98.1 F 99 H 16 92/62 L 95 Room Air 12/17/23 03:00 Room Air 12/17/23 01:00 Room Air 12/17/23 00:00 95 Room Air 12/17/23 00:00 110 H 12/17/23 00:00 97.9 F 104 H 18 114/67 95 Room Air 12/16/23 23:00 Room Air 12/16/23 21:00 Room Air 12/16/23 20:00 112 H Room Air 12/16/23 20:00 97.7 F 98 H 16 88/64 L 94 L Room Air 12/16/23 18:10 Room Air 12/16/23 17:00 Room Air 12/16/23 16:00 97 Room Air 12/16/23 16:00 90 12/16/23 16:00 97.8 F 88 15 103/66 L 94 L Room Air 12/16/23 15:00 Room Air 12/16/23 13:00 Room Air 12/16/23 12:00 90 12/16/23 11:35 98 F 98 H 17 89/57 L 98 Room Air 12/16/23 11:00 Room Air 12/16/23 09:00 Room Air 12/16/23 08:00 Room Air 12/16/23 08:00 90 12/16/23 07:59 97.7 F 98 H 18 91/52 L 98 Room Air O2 Flow Rate 12/17/23 07:39 12/17/23 07:39 1 12/17/23 07:00 12/17/23 06:21 12/17/23 04:48 12/17/23 04:41 12/17/23 04:00 12/17/23 03:00 12/17/23 01:00 12/17/23 00:00 12/17/23 00:00 12/17/23 00:00 12/16/23 23:00 12/16/23 21:00 12/16/23 20:00 12/16/23 20:00 12/16/23 18:10 12/16/23 17:00 12/16/23 16:00 12/16/23 16:00 12/16/23 16:00 12/16/23 15:00 12/16/23 13:00 12/16/23 12:00 12/16/23 11:35 12/16/23 11:00 12/16/23 09:00 12/16/23 08:00 12/16/23 08:00 12/16/23 07:59 Intake and Output 12/16/23 12/17/23 12/17/23 19:59 03:59 11:59 Intake Total 700 / 700 360 / 1060 0 / 1060 Output Total 600 / 600 100 / 700 Balance 100 / 100 260 / 360 0 / 360 Intake: Intake, Oral Amount 700 / 700 360 / 1060 0 / 1060 Output: Output, Urine Amount 600 / 600 100 / 700 Other: Number of Unmeasured Voids 1 Number of Bowel Movements 1 1 Weight 249 lb 9.6 oz Patient Weight 12/17/23 11:59 Weight 249 lb 9.6 oz Laboratory Results - last 24 hr 12/16/23 06:33: Carbon Dioxide 37 H, Anion Gap 8.2, BUN 19 H, Creatinine 1.40 H, Estimated Creat Clear 29, Estimated GFR 38 L, Est GFR ( Amer) 45 L, Glucose 159 H, Calcium 7.8 L, NT-Pro-B Natriuret Pep 7040 H I & O for Labs for Last 24 Hours: Intake & Output 12/14/23 12/15/23 12/16/23 12/17/23 11:59 11:59 11:59 11:59 Intake Total 1090 / 1090 870 / 870 1290 / 1290 1060 / 1060 Output Total 3230 / 3230 3575 / 3575 4630 / 4630 700 / 700 Balance -2140 / -2140 -2705 / -2705 -3340 / -3340 360 / 360 Weight 230 lb 6.834 oz 228 lb 13.437 oz 253 lb 14.4 oz 249 lb 9.6 oz Constitutional: Present no acute distress Comment:: Awake and from sleep for visit. She appears very comfortable and is breathing easily. Respiratory: Present CTA bilaterally (Anteriorly and posteriorly) Cardiac: Present Regular Rate GI: Present soft and normal bowel sounds; Absent tenderness or guarding Comments:: Obese Extremities: Present edema Neuro: Present alert, awake and oriented x 3 Assessment and Plan *Assessment and plan (1) Hypoglycemia associated with type 2 diabetes mellitus: Status: Acute Category: Medical Code(s): E11.649 - Type 2 diabetes mellitus with hypoglycemia without coma (2) Compression atelectasis: Status: Acute Category: Medical Code(s): J98.11 - Atelectasis (3) Acute exacerbation of CHF (congestive heart failure): Status: Acute Qualifiers: Heart failure type: unspecified Qualified Code(s): I50.9 - Heart failure, unspecified Category: Medical Code(s): I50.9 - Heart failure, unspecified (4) Ascites: Status: Acute Qualifiers: Ascites type: other type Qualified Code(s): R18.8 - Other ascites Category: Medical Code(s): R18.8 - Other ascites (5) Anasarca: Status: Acute Category: Medical Code(s): R60.1 - Generalized edema (6) Pleural effusion: Status: Acute Category: Medical Code(s): J90 - Pleural effusion, not elsewhere classified (7) Cirrhosis: Status: Acute Qualifiers: Ascites presence: with ascites Hepatic cirrhosis type: unspecified hepatic cirrhosis Qualified Code(s): K74.60 - Unspecified cirrhosis of liver; R18.8 - Other ascites Category: Medical Code(s): K74.60 - Unspecified cirrhosis of liver (8) A-fib: Status: Acute Qualifiers: Atrial fibrillation type: unspecified chronic Qualified Code(s): I48.20 - Chronic atrial fibrillation, unspecified Category: Medical Code(s): I48.91 - Unspecified atrial fibrillation (9) Elevated lactic acid level: Status: Acute Category: Medical Code(s): R79.89 - Other specified abnormal findings of blood chemistry (10) HTN (hypertension): Status: Chronic Qualifiers: Hypertension type: essential hypertension Qualified Code(s): I10 - Essential (primary) hypertension Category: Medical Code(s): I10 - Essential (primary) hypertension (11) COPD (chronic obstructive pulmonary disease): Status: Chronic Qualifiers: COPD type: unspecified COPD Qualified Code(s): J44.9 - Chronic obstructive pulmonary disease, unspecified Category: Medical Code(s): J44.9 - Chronic obstructive pulmonary disease, unspecified (12) Hypothyroid: Status: Chronic Qualifiers: Hypothyroidism type: unspecified Qualified Code(s): E03.9 - Hypothyroidism, unspecified Category: Medical Code(s): E03.9 - Hypothyroidism, unspecified (13) Hyperlipidemia: Status: Chronic Qualifiers: Hyperlipidemia type: mixed hyperlipidemia Qualified Code(s): E78.2 - Mixed hyperlipidemia Category: Medical Code(s): E78.5 - Hyperlipidemia, unspecified (14) Acute on chronic HFrEF (heart failure with reduced ejection fraction): Status: Acute Category: Medical Code(s): I50.23 - Acute on chronic systolic (congestive) heart failure (15) Elevated brain natriuretic peptide (BNP) level: Status: Acute Category: Medical Code(s): R79.89 - Other specified abnormal findings of blood chemistry (16) Anemia: Status: Acute Category: Medical Code(s): D64.9 - Anemia, unspecified (17) Hypokalemia: Status: Acute Category: Medical Code(s): E87.6 - Hypokalemia Plan Patient to have PERFORMING [employer] RO[employer] MANAGER?D placement today. Otherwise continue with current care. Dr. Ortiz entry - Saw patient, agree with above note. Will give 500 mL OF IV NS now due to borderline low BP and will hold IV Lasix.
[2023-12-17] MEDS: VENLAFAXINE XR 75MG CAPSULE 75 MG PO (08:10)
[2023-12-17] MEDS: POTASSIUM CHLORIDE 20MEQ TAB 40 MEQ PO ×2 (08:10→20:02)
[2023-12-17] MEDS: EMPAGLIFLOZIN 10MG TABLET 10 MG PO (08:10)
[2023-12-17] MEDS: LEVOTHYROXINE 137MCG (0.137MG) TAB 137 MCG PO (08:13)
[2023-12-17 09:07] LABS: Anion Gap 11.6 mEq/L (5-15); Blood Urea Nitrogen 20 mg/dl (7-17); Calcium 8.1 mg/dl (8.4-10.2); Carbon Dioxide 37 mmol/L (22.0-30.0); Chloride 95 mmol/L (98-107); Creatinine Clearance Estimated 32 mL/min (50-200); Estimated Glomerular Filt Rate 41 ml/min (>60); GFR (African American) 49 ML/MIN (>60); Glucose 112 mg/dl (74-100); Potassium 3.6 mmoL/L (3.5-5.1); Sodium 140 mmol/L (136-145)
[2023-12-17 09:26] LABS: Basophils % 0.1 % (0.1-2.0); Eosinophils % 0.3 % (0.1-12.0); Hematocrit 34.3 % (37.0-47.0); Hemoglobin 9.7 g/dL (12.2-16.2); Lymphocytes % 19.9 % (10-50); Mean Corpuscular HGB Conc 28.4 g/dL (31.8-35.4); Mean Corpuscular Hemoglobin 27.2 pg (27.0-31.2); Mean Corpuscular Volume 95.8 fl (81-99); Mean Platelet Volume 7.5 fl (7.4-10.4); Monocytes # 0.4 K/mm3 (0.1-1.0); Monocytes % 8.7 % (1.7-9.3); Neutrophils # 3.5 K/mm3 (1.8-7.8); Platelet Count 215 K/mm3 (142-424); Red Blood Count 3.58 M/mm3 (4.20-5.40); Red Cell Distribution Width 24.3 % (11.5-17.5)
--- NOTE | 2023-12-17 09:48 | EXP.PULM.PN ---
Subjective *Date: 12/17/23 *Time: 11:17 Interval history: No acute respiratory vents overnight. Continue to remain on room air. Denies any respiratory complaints. Pulmonology Exam Inpatient Vital signs and Labs for Last 24 Hours: Temp Pulse Resp BP Pulse Ox O2 Del Method O2 Flow Rate 98.3 F 100 H 16 92/62 L 91 L Room Air 1 12/17/23 08:00 12/17/23 04:48 12/17/23 04:00 12/17/23 04:00 12/17/23 06:21 12/17/23 08:00 12/17/23 07:39 FiO2 2 12/13/23 02:00 Laboratory Results - last 24 hr 12/17/23 08:45: WBC 5.0, RBC 3.58 L, Hgb 9.7 L, Hct 34.3 L, MCV 95.8, MCH 27.2, MCHC 28.4 L, RDW 24.3 H, Plt Count 215, MPV 7.5, Neut % (Auto) 71.0, Lymph % (Auto) 19.9, [place] % (Auto) 8.7, Eos % (Auto) 0.3, Baso % (Auto) 0.1, Neut # (Auto) 3.5, Lymph # (Auto) 1.0, [place] # (Auto) 0.4, Eos # (Auto) 0.0, Baso # (Auto) 0.0, Sodium 140, Potassium 3.6, Chloride 95 L, Carbon Dioxide 37 H, Anion Gap 11.6, BUN 20 H, Creatinine 1.30 H, Estimated Creat Clear 32, Estimated GFR 41 L, Est GFR ( Amer) 49 L, Glucose 112 H, Calcium 8.1 L Temp Pulse Resp BP Pulse Ox O2 Del Method O2 Flow Rate 98.6 F 96 H 20 110/49 L 99 Nasal Cannula 2 12/13/23 08:00 12/13/23 08:00 12/13/23 08:00 12/13/23 08:00 12/13/23 08:00 12/13/23 09:00 12/13/23 09:00 FiO2 2 12/13/23 02:00 Laboratory Results - last 24 hr 12/12/23 20:25: WBC 7.1, RBC 4.15 L, Hgb 11.1 L, Hct 36.3 L, MCV 87.4, MCH 26.6 L, MCHC 30.5 L, RDW 25.1 H*, Plt Count 253, MPV 9.0, Neut % (Auto) 74.1, Lymph % (Auto) 15.4, [place] % (Auto) 10.0 H, Eos % (Auto) 0.3, Baso % (Auto) 0.3, Neut # (Auto) 5.2, Lymph # (Auto) 1.1, [place] # (Auto) 0.7, Eos # (Auto) 0.0, Baso # (Auto) 0.0, Sodium 136, Potassium 3.5, Chloride 102, Carbon Dioxide 25, Anion Gap 12.5, BUN 21 H, Creatinine 1.40 H, Estimated Creat Clear 31, Estimated GFR 38 L, Est GFR ( Amer) 45 L, Glucose 33 L*, Hemoglobin A1c 5.6, Calcium 8.6, Phosphorus 3.7, Magnesium 1.7, Total Bilirubin 1.2, AST 38 H, ALT 13, Alkaline Phosphatase 99, NT-Pro-B Natriuret Pep 8260 H, Total Protein 7.5, Albumin 3.8, Globulin 3.7 H, Albumin/Globulin Ratio 1.0 L, Lipase 87, Acetone Level None detected 12/12/23 20:36: VBG pH 7.41, VBG pCO2 41.1, VBG pO2 163.4 H, VBG HCO3 25.5, VBG Total CO2 26.7, VBG O2 Saturation 99.5 H, VBG Base Excess 0.8, VBG Lactic Acid 2.4 H 12/12/23 21:31: Urine Color Yellow, Urine Appearance Clear, Urine pH 6.0, Ur Specific [place] 1.015, Urine Protein Negative, Urine Glucose (UA) 2+, Urine Ketones Negative, Urine Blood Negative, Urine Nitrate Negative, Urine Bilirubin Negative, Urine Urobilinogen 0.2, Ur Leukocyte Esterase Negative, Urine WBC 3-5, Ur Squamous Epith Cells 3-5, Urine Bacteria 1+, Hyaline Casts 5-10, Urine Mucus 1+ 12/12/23 21:39: HIV 1&2 Antibody Rapid Nonreactive 12/12/23 23:05: PT 15.8 H, INR 1.47 H 12/12/23 23:06: POC Glucose 87 12/13/23 00:03: POC Glucose 89 12/13/23 01:09: Lactate 1.1 12/13/23 01:15: POC Glucose 79 12/13/23 03:15: POC Glucose 74 12/13/23 04:48: POC Glucose 67 L 12/13/23 06:30: POC Glucose 64 L 12/13/23 07:24: POC Glucose 67 L 12/13/23 08:01: POC Glucose 94 12/13/23 08:15: Chlamy pneumoniae PCR Not detected, Adenovirus (PCR) Not detected, B. pertussis DNA (PCR) Not detected, Coronavirus OC43 (PCR) Not detected, Coronavirus HKU1 (PCR) Not detected, Coronavirus 229E (PCR) Not detected, SARS-CoV-2 (PCR) Not detected, Coronavirus NL63 (PCR) Not detected, Human Metapneumovir PCR Not detected, Influenza A (H1) PCR Not detected, Influ A (H1N1/09) PCR Not detected, Influenza A (H3) PCR Not detected, Influenza Type A (PCR) Not detected, Influenza Type B (PCR) Not detected, M. pneumoniae (PCR) Not detected, Parainfluenza 1 (PCR) Not detected, Parainfluenza 2 (PCR) Not detected, Parainfluenza 3 (PCR) Not detected, Parainfluenza 4 (PCR) Not detected, RSV (PCR) Not detected, Entero/Rhino (PCR) Not detected 12/13/23 09:07: POC Glucose 80 12/13/23 10:05: POC Glucose 64 L I & O for Labs for Last 24 Hours: Intake & Output 12/14/23 12/15/23 12/16/23 12/17/23 23:59 23:59 23:59 23:59 Intake Total 1000 / 1000 1040 / 1040 1610 / 1610 0 / 0 Output Total 3470 / 4145 4800 / 4800 1905 / 1905 200 / 200 Balance -2470 / -3145 -3760 / -3760 -295 / -295 -200 / -200 Weight 230 lb 6.834 oz 228 lb 13.437 oz 253 lb 14.4 oz 249 lb 9.6 oz Intake & Output 12/10/23 12/11/23 12/12/23 12/13/23 23:59 23:59 23:59 23:59 Intake Total 535 / 535 Output Total 700 / 700 700 / 700 Balance -700 / -700 -165 / -165 Weight 230 lb 229 lb 15.991 oz Constitutional: Present mild distress Head: Present normocephalic and atraumatic ENT: Present normal exam, normal oropharynx and mucous membranes moist Neck: Present normal inspection and full ROM Respiratory: Present diminished air movement and able to speak in complete sentences; Absent prolonged expiratory phase, respiratory distress or wheezes Cardiac: Present S1/S2, Tachycardia and radial pulses present GI: Present soft and distention; Absent tenderness or guarding Rectal (female): Present deferred (female): Present deferred Skin: Present intact; Absent cyanosis or jaundice Neuro: Present alert, awake and oriented x 3 Extremities: Present normal inspection; Absent clubbing or cyanosis Psychiatric: Present normal affect and cooperative Assessment and Plan *Assessment and plan (1) Pleural effusion: Status: Acute Category: Medical Code(s): J90 - Pleural effusion, not elsewhere classified (2) Asthma: Status: Acute Category: Medical Code(s): J45.909 - Unspecified asthma, uncomplicated Plan MsJasson Current is a 68-year-old female never smoker, carries a diagnosis of asthma on Advair 250 inhaler with good symptom control at baseline reported history of CHF with reduced EF, asthma COPD overlap syndrome, hypertension, dyslipidemia atrial fibrillation presented to the ER with worsening respiratory distress and pulmonary was called for further evaluation management. CTA upon admission no evidence of pulmonary embolism. Right pleural effusion noted with adjavcent atelectasis . No other dense consolidative/airspace changes noted. CT abdomen also showed ascites and patient has a recent diagnosis of liver cirrhosis Afebrile. Hemodynamically stable. Comprehensive respiratory viral PCR panel negative. On initial examination patient appeared to be in mild respiratory distress. On 2 L saturating 100%. No significant wheezing noted on auscultation with decreased breath sounds left lung martinez. Given patient is not having any severe respiratory distress and oxygen requirements weaned to room air, no emergent need for thoracentesis at this point of time. Recommend to continue diuretic regimen for decopensated liver cirrhosis. Interval update: No acute respiratory vents overnight. Continue to remain on room air.. CXR 12/16/23 stable with no significant change from prior with respect to the right-sided effusion Continue to receive diuretics per cardiology following for with reduced EF @ 15%. Awaiting defibrillator placement. Plan: No need for thoracentesis at this point of time given continued improvement in her respiratory status with diuretic regimen. Will follow in the clinic in 2 to 3 weeks with repeat chest x-ray PA and lateral to further determine the need for thoracentesis. Incentive spirometry Advair 250 daily DuoNebs every 6 as needed # Thank you for involving pulmonary in this patient care. Will follow the patient in pulmonary clinic in 2 to 3 weeks with chest x-ray PA and lateral prior to clinic visit
--- NOTE | 2023-12-17 10:23 | P.PN_ITS ---
Subjective Subjective Date: 12/17/23 Time: 09:30 Interval history: No changes overnight, pt still agreeable to AERONAUTICAL ENGINEERING OFFICER-D placement today. Exam Data for Last 24 hours Vital signs and Labs for Last 24 Hours: Temp Pulse Resp BP Pulse Ox O2 Del Method O2 Flow Rate 98.3 F 100 H 16 92/62 L 91 L Room Air 1 12/17/23 08:00 12/17/23 04:48 12/17/23 04:00 12/17/23 04:00 12/17/23 06:21 12/17/23 08:00 12/17/23 07:39 FiO2 2 12/13/23 02:00 Laboratory Results - last 24 hr 12/17/23 08:45: WBC 5.0, RBC 3.58 L, Hgb 9.7 L, Hct 34.3 L, MCV 95.8, MCH 27.2, MCHC 28.4 L, RDW 24.3 H, Plt Count 215, MPV 7.5, Neut % (Auto) 71.0, Lymph % (Auto) 19.9, [place] % (Auto) 8.7, Eos % (Auto) 0.3, Baso % (Auto) 0.1, Neut # (Auto) 3.5, Lymph # (Auto) 1.0, [place] # (Auto) 0.4, Eos # (Auto) 0.0, Baso # (Auto) 0.0, Sodium 140, Potassium 3.6, Chloride 95 L, Carbon Dioxide 37 H, Anion Gap 11.6, BUN 20 H, Creatinine 1.30 H, Estimated Creat Clear 32, Estimated GFR 41 L, Est GFR ( Amer) 49 L, Glucose 112 H, Calcium 8.1 L I & O for Last 24 hours: Intake & Output 12/14/23 12/15/23 12/16/23 12/17/23 23:59 23:59 23:59 23:59 Intake Total 1000 / 1000 1040 / 1040 1610 / 1610 0 / 0 Output Total 3470 / 4145 4800 / 4800 1905 / 1905 200 / 200 Balance -2470 / -3145 -3760 / -3760 -295 / -295 -200 / -200 Weight 230 lb 6.834 oz 228 lb 13.437 oz 253 lb 14.4 oz 249 lb 9.6 oz Constitutional Constitutional: no acute distress, obese and cooperative *Routine HEENT Exam Eye: Present PERRL *Routine Respiratory Exam Respiratory: Present CTA bilaterally; Absent accessory muscle use, wheezes or crackles *Routine Cardiovascular Exam Cardiovascular: Present RRR, Normal S1 and Normal S2; Absent murmur, gallop or rubs *Routine Abdominal Exam Abdominal: Present soft; Absent tenderness *Routine Extremities Exam Extremities: Present pulses intact; Absent cyanosis or edema *Routine Skin Exam Skin: Present intact; Absent erythema or wounds *Routine Neurological Exam Neurological: Present alert and oriented X3 Routine Psychiatric Exam Psychiatric: Present cooperative Progress Note: A&P Assessment and plan (1) Acute on chronic HFrEF (heart failure with reduced ejection fraction): Status: Acute (2) A-fib: Status: Acute (3) Pleural effusion: Status: Acute (4) Asthma: Status: Acute (5) Valvular heart disease: Status: Acute (6) Mitral valve regurgitation: Status: Acute (7) Severe tricuspid regurgitation: Status: Acute Assessment and Plan Assessment and Plan for All Diagnoses:: NIDCM/HFrEF - known dx, 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 Continue Entresto, Aldactone, Jardiance. - Pt has been given LifeVest previously which she did not wear. We recommended AERONAUTICAL ENGINEERING OFFICER-D last February but she was not interested and did not f/u in office. She has been admitted for HF at least twice yearly. I discussed AERONAUTICAL ENGINEERING OFFICER-D may improve daily functional capacity and reduce hospitalizations and she would now like to proc eed and states she is willing to f/u in office. 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 - Severe TR - continue diuresis - monitor with ECHO q6 mo Severe Right Heart Failure - Severe RV Dilation and Pulm Htn, likely secondary to severe LHF - Needs aggressive weight loss, treatment of sleep apnea, and AERONAUTICAL ENGINEERING OFFICER-D Permanent A-fib - chronic and rate controlled - continue Metoprolol and renally adjusted Xarelto - consider CARLOS/DCCV at time of AERONAUTICAL ENGINEERING OFFICER-D if she proceeds CKD - Cr 1.3 Morbid Obesity, BMI 46 - consider OP GLP-1 Noncompliance - pt admitted December and February and did not f/u in office either time despite recommendations - we discussed that to improve daily functional capacity and reduce hospitalizations she should take meds, obtain AERONAUTICAL ENGINEERING OFFICER-D and f/u as recommended, morbidity/mortality risk is severely elevated *AERONAUTICAL ENGINEERING OFFICER-D placement today. She lives home alone so should likely stay until at least tomorrow to ensure stability post discharge.
--- NOTE | 2023-12-17 11:04 | P.PNANES_ITS ---
[facility] Disclaimer: The information contained in this section may have been updated after the patient was seen, as this information can be updated by other users. Medical History (Updated 12/17/23 @ 10:24 by BURAK Castellano) Asthma Hypoglycemia associated with type 2 diabetes mellitus Ascites Anasarca Pleural effusion A-fib Elevated brain natriuretic peptide (BNP) level LORE (acute kidney injury) Acute on chronic HFrEF (heart failure with reduced ejection fraction) Cirrhosis BMI 39.0-39.9,adult Non morbid obesity Esophageal stricture Chronic low back pain Asthma-COPD overlap syndrome Osteoarthritis of both knees Irritable bowel syndrome with diarrhea HFrEF (heart failure with reduced ejection fraction) Major depressive disorder Allergic rhinitis CHF (congestive heart failure) Atrial fibrillation COPD (chronic obstructive pulmonary disease) Hypothyroid Hyperlipidemia HTN (hypertension) Surgical History S/P dilatation of esophageal stricture History of right oophorectomy History of cholecystectomy History of tubal ligation Family History A-fib Family/Other Breast cancer Family/Other Emphysema lung Family/Other Social History Smoking Status: Unknown if ever smoked years smoked: 15 how long ago did patient quit smokin quit status: quit date established second hand exposure: No alcohol intake: former counseling given: No substance use type: denies use counseling given: No current occupational status: disabled Travel in the last 8 weeks: Inside the [facility] adopted: No caregiver/support person: No foster care: No household members: family and none housing: house lives independently: Yes marital status: number of children: 3 number of grandchildren: 11 education level: high school current occupational exposures/hazards: No caffeine: Yes physical activity: none working smoke detector in home: Yes fire extinguisher in home: No carbon monox detector in home: No firearms in home: No do you feel safe at home: Yes victim of physical abuse: No victim of emotional abuse: No victim of sexual abuse: No would you like helpful sources: No [facility] Anesthesia Checklist Patient Identification Patient Identification: Arm Band Structural Data Admitted From: Home Planned Operative Procedure/s: Biventricular AICD/Pacemaker Placement Consent for Planned Operative Procedure(s) Verified: Yes Verified Documents: Surgical Consent and History and Physical NPO Status Verified Time NPO: 00:00 Additional verifications Anesthesia Reactions: No Airway Assessment Mallampati Score:: Class II C-Spine Mobility Assessed: Yes TMJ Mobility Assessed: Yes Dentition: Edentulous Neurological Assessment Level of Consciousness: Awake, Alert and Appropriate Anesthesia Plan Anesthesia Risk discussed: Yes Anesthesia Plan: Verified ASA Class: IV Anesthesia Type: MAC Preoperative Comments Pre-Operative Comments: Pt with EF 15%, severe LV Dilation. Discussed risks of anesthesia at length with pt. Pt verbalizes understanding and agrees to proceed.
[2023-12-17] MEDS: LIDOCAINE 1% W/EPI 1:100,000 20ML VIAL 20 ML SQ (12:37)
[2023-12-17] MEDS: 0.9 % SODIUM CHLORIDE 1000ML 1,000 ML 25 ML IV (12:38)
[2023-12-17] MEDS: CEFAZOLIN 1GM VIAL 1 GM TP (12:38)
[2023-12-17] MEDS: CEFAZOLIN SODIUM 1 GM in 0.9 % SODIUM CHLORIDE 50 ML IV (12:38)
--- NOTE | 2023-12-17 14:30 | XR_ITS ---
PROCEDURE INFORMATION: Exam: XR Chest Exam date and time: 12/17/2023 2:37 PM Age: 68 years old Clinical indication: Device placement; Cardiac pacemaker lead placement or adjustment; Additional info: Placement aicd TECHNIQUE: Imaging protocol: Radiologic exam of the chest. Views: 1 view. COMPARISON: CR XR CHEST PORTABLE 12/16/2023 9:20 AM FINDINGS: Tubes, catheters and devices: There is a multi lead pacer defibrillator on the left side of the chest. Lungs: Hazy opacities throughout the right lung which could represent a component of atelectasis and/or pneumonia with pleural fluid. Pleural spaces: There is a small left pleural effusion. A moderate size right pleural effusion is suspected. There are hazy opacities throughout the right lung which could represent a component of atelectasis and/or pneumonia. Heart/Mediastinum: Stable cardiomegaly. Bones/joints: Unremarkable. IMPRESSION: 1. Suspected moderate right pleural effusion and small left pleural effusion. 2. Stable appearing infiltrate versus atelectasis of the right base. 3. Stable cardiomegaly. 4. No evidence of a pneumothorax status post pacemaker insertion.
[2023-12-17] MEDS: IOPAMIDOL-370 (76%);100ML BOTTLE 15 ML IV (14:36)
--- NOTE | 2023-12-17 14:54 | IR_ITS ---
APPROVED REPORT Patient Location: Inpatient Pin Setter: KEILA Queen RT (R) PROCEDURES 1. Pocket formation for biventricular pacemaker generator with cardiac resynchronization/defibrillator therapy. 2. Placement of atrial sensing and pacing lead into the right atrial appendage. 3. Placement of a right ventricular sensing, pacing and shocking lead in the right ventricular apex. 4. Placement of left ventricular sensing pacing lead via the coronary sinus. 5. Permanent cardiac resynchronization therapy with defibrillator implantation. INDICATION Systolic Congestive Heart Failure, ejection 15-20%, Wide QRS >150ms, [place] Heart Assoication Class 3 Congestive Heart Failure, Bundle Branch Block, Atrial Fibrilation Informed consent was obtained prior to the procedure. COMPLICATIONS NONE Estimated Blood Loss: LESS THAN 10 ML TECHNIQUE 1% Lidocaine with epinephrine used to anesthetized the left anterior aspect of the chest. Scalpel was used to make the initial cutaneous incision while electrocautery was used to dissect down tinto the fascia. The fascia was lifted off the pectoralis muscle and digitally manipulated creating a pocket for the defibrillator. The patient was then placed in Trendelenburg position and the subclavian vein was accessed 3 times via the Selinger technique. A 8 [place] sheath was placed under fluoroscopic guidance into the subclavian vein. The dilator was removed from the sheath. Using fluoroscopic guidance, the ventricular lead was placed into the right ventricular apex, screwed and secured into place. Electronic interrogation proved acceptable thresholds and voltage within the lead. Using 3-0 silk, the ventricular lead was then secured into place and sheath peeled away. Following this, a 10.5 [place] sheath and dilator was then placed over one of the wires while keeping the other wire in place within the subclavian vein. The dilator was removed from the sheath. Using fluoroscopic guidance, contrast was used to visualize the coronary sinus, the left ventricular lead was placed into the coronary sinus. Electronic interrogation proved acceptable thresholds and voltage within the lead. Using 3-0 silk, the left ventricular lead was then secured into place and sheath peeled away.An additional 6 [place] fresh sheath and dilator was placed over the existing wire. Using fluoroscopic guidance, the atrial lead was then placed into the right atrial appendage and screwed and secured in place. Electrical interrogation demonstrated acceptable thresholds and voltage number. The atrial lead was then secured into place using 3-0 silk and sheath peeled away. 1 gram of Ancef was used to flush the pocket. All 3 leads were connected to generator and tested via computer. The defibrillator then secured to the fascia. Monocryl was used to close the subcutaneous layers while karma were used to close the cutaneous layer. A pressure dressing was placed and the patient was transferred to the postop holding area in stable condition for postoperative care. INTERROGATION Generator Model number: [place] HF, [id number] Generator Serial number: [id number] Atrial lead model number: Tendril STS, 46cm, [id number] Atrial lead serial number: [id number] P-wave: 1-2.5mV Impedance: 390 ohms Threshold: A Fib Right Ventricular lead model number: Optisure, 58cm, [id number] Right Ventricular lead serial number: [id number] R-wave: 8.2mV Impedance: 460 ohms Threshold: 0.5V@0.5ms Left Ventricular lead model number: Quartet, 86cm, [id number] Left Ventricular lead serial number: [id number] Impedance: 600 ohms Threshold: 1.0V@0.5ms M2-P4 Pacing Parameters: Mode: DDTR Base/Max Track: 70 ppm / 130 ppm No diaphragmatic stimulation at 10 volts. IMPRESSION 1. Successful Pocket formation for biventricular pacemaker generator with cardiac resynchronization/defibrillator therapy. 2. Successful placement of right atrial sensing and pacing lead into the right atrial appendage. 3. Successful placement of a right ventricular sensing, pacing and shocking lead in the right ventricular apex. 4. Successful placement of left ventricular sensing pacing lead via the coronary sinus. 5. Successful permanent cardiac resynchronization/defibrillator generator device. PLAN 1. It is important to slow down patient's atrial fibrillation. Recommend maximizing beta-blockers until continuous BiV pacing occurs at a rate of 70 bpm 2. Standard medical care for systolic heart failure 3. Postop wound care Electronically signed by : Carmelo Escalante MD 12/17/2023 14:47:19
--- NOTE | 2023-12-17 16:34 | PC.NURSE ---
PT IS RESTING IN BED. ALERT AND ORIENTED X4. COOPERATIVE AND ANSWERING QUESTIONS SINCE ARRIVING BACK TO THE FLOOR FROM PROCEDURE. DRESSING NOTED TO LEFT ANTERIOR CHEST C/D/I. PT'S CARDIAC MEDS WERE HELD THIS MORNING DUE TO PT'S LOW BP 82/48. 1630 BP 107/70. LUNG SOUNDS DIMINISHED. ABDOMEN SOFT/NON TENDER WITH ACTIVE BOWEL SOUNDS. WILL CONTINUE TO MONITOR.
[2023-12-17] MEDS: FUROSEMIDE 100MG/10ML VIAL 80 MG IV (16:48)
[2023-12-17] MEDS: ACETAMINOPHEN 325MG TAB 650 MG PO (16:57)
[2023-12-17] MEDS: SACUBITRIL/VALSARTAN 24-26MG TABLET 1 EACH PO (20:01)
[2023-12-17] MEDS: ATORVASTATIN 40MG TABLET 40 MG PO (20:02)
[2023-12-18] VITALS: BP 99/68; PULSE 107; PULSE 90; RESP 17; TEMP 36.6; O2SAT 97
[2023-12-18 04:00] VITALS: BP 110/65; PULSE 100; PULSE 107; RESP 16; TEMP 36.9; O2SAT 98; BMI 46.3
[2023-12-18] MEDS: ACETAMINOPHEN 325MG TAB 650 MG PO ×2 (04:03→09:32)
[2023-12-18] MEDS: FLUTICASONE/SALMETEROL 250/50MCG DISKUS 1 PUFF IH (06:25)
[2023-12-18] MEDS: LEVOTHYROXINE 137MCG (0.137MG) TAB 137 MCG PO (06:57)
[2023-12-18 08:00] VITALS: BP 93/47; PULSE 104; PULSE 110; RESP 19; TEMP 36.6; O2SAT 92
--- NOTE | 2023-12-18 08:37 | P.PN_ITS ---
Subjective *Date: 12/18/23 *Time: 09:01 Interval history: Patient is feeling a little better this am. Does have some tenderness at the OXYACETYLENE CUTTER-D site. Still having some abdominal pain especially after having coffee this am. Did not sleep well but never sleeps well. Medical Exam Vital signs and Labs for Last 24 Hours: Vital Signs Temp Pulse Pulse Resp BP BP Pulse Ox 12/18/23 08:00 98 F 104 H 19 93/47 L 92 L 12/18/23 06:51 12/18/23 05:00 12/18/23 04:00 98.4 F 107 H 16 110/65 98 12/18/23 04:00 100 H 12/18/23 03:00 12/18/23 01:00 12/18/23 00:00 97.8 F 107 H 17 99/68 L 97 12/18/23 00:00 90 12/17/23 23:00 12/17/23 21:00 12/17/23 20:00 103 H 12/17/23 20:00 12/17/23 20:00 97.8 F 103 H 16 93/60 L 98 12/17/23 18:59 105 H 20 92/57 L 95 12/17/23 18:08 12/17/23 18:00 94 H 20 95/64 L 95 12/17/23 17:00 12/17/23 17:00 93 H 16 114/58 L 93 L 12/17/23 16:30 105 H 20 107/70 L 95 12/17/23 16:00 110 H 12/17/23 16:00 95 H 16 112/61 95 12/17/23 15:45 12/17/23 15:44 95 H 20 117/60 95 12/17/23 15:00 97.7 F 91 H 20 80/69 L 94 L 12/17/23 14:50 99 H 18 104/65 L 99 12/17/23 14:49 12/17/23 14:35 105 H 16 101/68 L 97 12/17/23 14:30 105 H 20 104/55 L 99 12/17/23 14:25 98 H 22 102/57 L 95 12/17/23 14:20 105 H 18 104/55 L 99 12/17/23 14:18 94 H 102 H 16 100/62 L 94 L 12/17/23 11:30 60 18 130/47 L 98 12/17/23 10:57 O2 Del Method O2 Flow Rate 12/18/23 08:00 Room Air 12/18/23 06:51 Room Air 12/18/23 05:00 Room Air 12/18/23 04:00 Room Air 12/18/23 04:00 12/18/23 03:00 Room Air 12/18/23 01:00 Room Air 12/18/23 00:00 Room Air 12/18/23 00:00 12/17/23 23:00 Room Air 12/17/23 21:00 Room Air 12/17/23 20:00 12/17/23 20:00 Room Air 12/17/23 20:00 Room Air 12/17/23 18:59 Room Air 12/17/23 18:08 Room Air 12/17/23 18:00 Room Air 12/17/23 17:00 Room Air 12/17/23 17:00 Room Air 12/17/23 16:30 Room Air 12/17/23 16:00 12/17/23 16:00 Room Air 12/17/23 15:45 Room Air 12/17/23 15:44 Room Air 12/17/23 15:00 Room Air 12/17/23 14:50 12/17/23 14:49 Room Air 12/17/23 14:35 12/17/23 14:30 12/17/23 14:25 12/17/23 14:20 12/17/23 14:18 Simple Mask 6 12/17/23 11:30 Room Air 12/17/23 10:57 Room Air Intake and Output 12/17/23 12/18/23 12/18/23 19:59 03:59 11:59 Intake Total 570 / 570 Output Total 500 / 500 0 / 500 Balance -500 / 70 570 / 70 Intake: Intake, Oral Amount 570 / 570 Output: Output, Urine Amount 500 / 500 0 / 500 Other: Number of Voids 1 Number of Unmeasured Voids 1 1 Number of Bowel Movements 1 Weight 251 lb 11.2 oz Patient Weight 12/18/23 11:59 Weight 251 lb 11.2 oz Laboratory Results - last 24 hr 12/17/23 08:45: WBC 5.0, RBC 3.58 L, Hgb 9.7 L, Hct 34.3 L, MCV 95.8, MCH 27.2, MCHC 28.4 L, RDW 24.3 H, Plt Count 215, MPV 7.5, Neut % (Auto) 71.0, Lymph % (Auto) 19.9, [place] % (Auto) 8.7, Eos % (Auto) 0.3, Baso % (Auto) 0.1, Neut # (Auto) 3.5, Lymph # (Auto) 1.0, [place] # (Auto) 0.4, Eos # (Auto) 0.0, Baso # (Auto) 0.0, Sodium 140, Potassium 3.6, Chloride 95 L, Carbon Dioxide 37 H, Anion Gap 11.6, BUN 20 H, Creatinine 1.30 H, Estimated Creat Clear 32, Estimated GFR 41 L, Est GFR ( Amer) 49 L, Glucose 112 H, Calcium 8.1 L I & O for Labs for Last 24 Hours: Intake & Output 12/15/23 12/16/23 12/17/23 12/18/23 11:59 11:59 11:59 11:59 Intake Total 870 / 870 1290 / 1290 1060 / 1060 570 / 570 Output Total 3575 / 3575 4630 / 4630 900 / 900 500 / 500 Balance -2705 / -2705 -3340 / -3340 160 / 160 70 / 70 Weight 228 lb 13.437 oz 253 lb 14.4 oz 249 lb 9.6 oz 251 lb 11.2 oz Constitutional: Present no acute distress Comment:: Sitting in chair. She appears very comfortable and is breathing easily. Respiratory: Present CTA bilaterally (Anteriorly and posteriorly) Cardiac: Present Regular Rate GI: Present soft and normal bowel sounds; Absent tenderness or guarding Comments:: Obese Extremities: Present edema (bilateral LE's) Skin: Present intact and ecchymosis (mild around OXYACETYLENE CUTTER-D site) Neuro: Present alert, awake and oriented x 3 Assessment and Plan *Assessment and plan (1) Hypoglycemia associated with type 2 diabetes mellitus: Status: Acute Category: Medical Code(s): E11.649 - Type 2 diabetes mellitus with hypoglycemia without coma (2) Compression atelectasis: Status: Acute Category: Medical Code(s): J98.11 - Atelectasis (3) Acute exacerbation of CHF (congestive heart failure): Status: Acute Qualifiers: Heart failure type: unspecified Qualified Code(s): I50.9 - Heart failure, unspecified Category: Medical Code(s): I50.9 - Heart failure, unspecified (4) Ascites: Status: Acute Qualifiers: Ascites type: other type Qualified Code(s): R18.8 - Other ascites Category: Medical Code(s): R18.8 - Other ascites (5) Anasarca: Status: Acute Category: Medical Code(s): R60.1 - Generalized edema (6) Pleural effusion: Status: Acute Category: Medical Code(s): J90 - Pleural effusion, not elsewhere classified (7) Cirrhosis: Status: Acute Qualifiers: Ascites presence: with ascites Hepatic cirrhosis type: unspecified hepatic cirrhosis Qualified Code(s): K74.60 - Unspecified cirrhosis of liver; R18.8 - Other ascites Category: Medical Code(s): K74.60 - Unspecified cirrhosis of liver (8) A-fib: Status: Acute Qualifiers: Atrial fibrillation type: unspecified chronic Qualified Code(s): I48.20 - Chronic atrial fibrillation, unspecified Category: Medical Code(s): I48.91 - Unspecified atrial fibrillation (9) Elevated lactic acid level: Status: Acute Category: Medical Code(s): R79.89 - Other specified abnormal findings of blood chemistry (10) HTN (hypertension): Status: Chronic Qualifiers: Hypertension type: essential hypertension Qualified Code(s): I10 - Essential (primary) hypertension Category: Medical Code(s): I10 - Essential (primary) hypertension (11) COPD (chronic obstructive pulmonary disease): Status: Chronic Qualifiers: COPD type: unspecified COPD Qualified Code(s): J44.9 - Chronic obstructive pulmonary disease, unspecified Category: Medical Code(s): J44.9 - Chronic obstructive pulmonary disease, unspecified (12) Hypothyroid: Status: Chronic Qualifiers: Hypothyroidism type: unspecified Qualified Code(s): E03.9 - Hypothyroidism, unspecified Category: Medical Code(s): E03.9 - Hypothyroidism, unspecified (13) Hyperlipidemia: Status: Chronic Qualifiers: Hyperlipidemia type: mixed hyperlipidemia Qualified Code(s): E78.2 - Mixed hyperlipidemia Category: Medical Code(s): E78.5 - Hyperlipidemia, unspecified (14) Acute on chronic HFrEF (heart failure with reduced ejection fraction): Status: Acute Category: Medical Code(s): I50.23 - Acute on chronic systolic (congestive) heart failure (15) Elevated brain natriuretic peptide (BNP) level: Status: Acute Category: Medical Code(s): R79.89 - Other specified abnormal findings of blood chemistry (16) Anemia: Status: Acute Category: Medical Code(s): D64.9 - Anemia, unspecified (17) Hypokalemia: Status: Acute Category: Medical Code(s): E87.6 - Hypokalemia (18) Severe tricuspid regurgitation: Status: Acute Category: Medical Code(s): I07.1 - Rheumatic tricuspid insufficiency (19) Mitral valve regurgitation: Status: Acute Category: Medical Code(s): I34.0 - Nonrheumatic mitral (valve) insufficiency (20) Presence of combination internal cardiac defibrillator (ICD) and pacemaker: Status: Acute Category: Medical Code(s): Z95.810 - Presence of automatic (implantable) cardiac defibrillator Plan Patient can likely be discharged today. Will discuss with Dr. Ortiz. Dr. Ortiz entry - Saw patient, agree with above note.
[2023-12-18] MEDS: EMPAGLIFLOZIN 10MG TABLET 10 MG PO (09:29)
[2023-12-18] MEDS: VENLAFAXINE XR 75MG CAPSULE 75 MG PO (09:29)
[2023-12-18] MEDS: METOPROLOL SUCCINATE XL 25MG TABLET 25 MG PO (09:29)
[2023-12-18] MEDS: POTASSIUM CHLORIDE 20MEQ TAB 40 MEQ PO (09:30)
[2023-12-18] MEDS: SACUBITRIL/VALSARTAN 24-26MG TABLET 1 EACH PO (09:30)
[2023-12-18] MEDS: FUROSEMIDE 100MG/10ML VIAL 80 MG IV (09:30)
[2023-12-18] MEDS: SPIRONOLACTONE 25MG TABLET 25 MG PO (09:30)
--- NOTE | 2023-12-18 11:05 | PC.NURSE ---
Multiple calls from this a.m. stating that patient' HR is dropping to low, down to zero. Patient assessed and found to be sitting up in chair. Denies discomfort. Manual pulse check has been 50-76.
--- NOTE | 2023-12-18 11:11 | PC.NURSE ---
Multiple calls from regarding patient's HR dropping on tele monitor. Patient assessed and found to be alert and oriented with no complaints. Manual pulse rate 70's to 80's.
--- NOTE | 2023-12-18 11:51 | P.PN_ITS ---
Subjective Subjective Date: 12/18/23 Time: 09:30 Interval history: Successful CHIEF COMPRESSOR STATION ENGINEER-D placement yesterday. Feeling well a bit weak and tired this morning otherwise no complaints. Exam Data for Last 24 hours Vital signs and Labs for Last 24 Hours: Temp Pulse Resp BP Pulse Ox O2 Del Method O2 Flow Rate 98 F 104 H 19 93/47 L 92 L Room Air 6 12/18/23 08:00 12/18/23 08:00 12/18/23 08:00 12/18/23 08:00 12/18/23 08:00 12/18/23 11:00 12/17/23 14:18 FiO2 2 12/13/23 02:00 I & O for Last 24 hours: Intake & Output 12/15/23 12/16/23 12/17/23 12/18/23 23:59 23:59 23:59 23:59 Intake Total 1040 / 1040 1610 / 1610 0 / 0 930 / 930 Output Total 4800 / 4800 1905 / 1905 200 / 200 900 / 900 Balance -3760 / -3760 -295 / -295 -200 / -200 Weight 228 lb 13.437 oz 253 lb 14.4 oz 249 lb 9.6 oz 251 lb 11.2 oz Constitutional Constitutional: no acute distress, morbidly obese, obese and cooperative *Routine HEENT Exam Eye: Present PERRL *Routine Respiratory Exam Respiratory: Present CTA bilaterally; Absent accessory muscle use, wheezes or crackles *Routine Cardiovascular Exam Cardiovascular: Present RRR, Normal S1 and Normal S2; Absent murmur, gallop or rubs Comments: ICD noted left chest *Routine Abdominal Exam Abdominal: Present soft; Absent tenderness *Routine Extremities Exam Extremities: Present pulses intact; Absent cyanosis or edema *Routine Skin Exam Skin: Present intact; Absent erythema or wounds *Routine Neurological Exam Neurological: Present alert and oriented X3 Routine Psychiatric Exam Psychiatric: Present cooperative Progress Note: A&P Assessment and plan (1) Acute exacerbation of CHF (congestive heart failure): Status: Acute (2) Pleural effusion: Status: Acute (3) Hypoglycemia associated with type 2 diabetes mellitus: Status: Acute (4) Anasarca: Status: Acute (5) A-fib: Status: Acute (6) Elevated lactic acid level: Status: Acute (7) HTN (hypertension): Status: Chronic (8) COPD (chronic obstructive pulmonary disease): Status: Chronic (9) Hypothyroid: Status: Chronic (10) Hyperlipidemia: Status: Chronic (11) Acute on chronic HFrEF (heart failure with reduced ejection fraction): Status: Acute (12) Elevated brain natriuretic peptide (BNP) level: Status: Acute (13) Anemia: Status: Acute (14) Hypokalemia: Status: Acute (15) Severe tricuspid regurgitation: Status: Acute (16) Mitral valve regurgitation: Status: Acute (17) Presence of combination internal cardiac defibrillator (ICD) and pacemaker: Status: Acute (18) Asthma: Status: Acute (19) Valvular heart disease: Status: Acute Assessment and Plan Assessment and Plan for All Diagnoses:: NIDCM/HFrEF - known dx, 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 Continue Entresto, Aldactone, Jardiance. - Pt has been given LifeVest previously which she did not wear. We recommended CHIEF COMPRESSOR STATION ENGINEER-D last February but she was not interested and did not f/u in office. She has been admitted for HF at least twice yearly. I discussed CHIEF COMPRESSOR STATION ENGINEER-D may improve daily functional capacity and reduce hospitalizations and she would now like to proceed and states she is willing to f/u in office. 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 - Severe TR - continue diuresis - monitor with ECHO q6 mo Severe Right Heart Failure - Severe RV Dilation and Pulm Htn, likely secondary to severe LHF - Needs aggressive weight loss, treatment of sleep apnea, and CHIEF COMPRESSOR STATION ENGINEER-D Permanent A-fib - chronic and rate controlled - continue Metoprolol and renally adjusted Xarelto - consider CARLOS/DCCV at time of CHIEF COMPRESSOR STATION ENGINEER-D if she proceeds CKD - Cr 1.3 Morbid Obesity, BMI 46 - consider OP GLP-1 Noncompliance - pt admitted December and February and did not f/u in office either time despite recommendations - we discussed that to improve daily functional capacity and reduce hospitalizations she should take meds, obtain CHIEF COMPRESSOR STATION ENGINEER-D and f/u as recommended, morbidity/mortality risk is severely elevated *CHIEF COMPRESSOR STATION ENGINEER-D placement 12/17/2023. Pt is CV stable for discharge. Her weakness may warrant another day of admission and/or short rehab stay as she lives home along. Will defer to primary service. Please advise if we can be of further assistance this admission. CV discharge medications: Aldactone 25 mg 1 p.o. daily Toprol-XL 25 mg 1 p.o. daily Entresto 24-26 mg 1 p.o. twice daily Jardiance 10 mg 1 p.o. daily Lasix 40 mg 1 to 2 tablets daily as needed for edema Xarelto 15 mg 1 p.o. daily Atorvastatin 40 mg 1 p.o. nightly
[2023-12-18 11:57] VITALS: BP 96/67; PULSE 102; RESP 20; TEMP 36.7; O2SAT 94
[2023-12-18 12:00] VITALS: PULSE 100
[2023-12-18 12:48] VITALS: PULSE 100
--- NOTE | 2023-12-18 14:39 | PC.NURSE ---
Education provided regarding importance of observing weight restriction with surgical arm and keeping dressing clean and dry. Discussed importance of taking medications as ordered and attending followup appointments when scheduled
--- NOTE | 2023-12-19 14:03 | CARE MANAGER ---
Contacted patient related to hospital discharge. She states she is doing better and has new medication. She is also aware of all her follow up appointments. Denies questions or concerns. ОЛЕГ Le
--- NOTE | 2023-12-23 15:24 | EXP.DC.SUM ---
General Admission date:: 12/12/23 Discharge date: 12/18/23 HPI HPI HPI: Patient presents for evaluation of dyspnea and hypoglycemia. Patient originally called EMS for difficulty breathing. On arrival however they found the patient lethargic and noted that her blood sugar was 65. They gave her oral glucose en route. She arrives on nasal cannula at 3 L/min but is not normally on oxygen. Patient was slightly obtunded could answer questions and follow commands but was not quite sure of the events of today. She lives alone. She denies chest pain fever chills hemoptysis hematochezia melena but reports shortness of breath. She denies overdosing her medication but also states that she has not eaten today. She is a type II diabetic, she also is a recently diagnosed cirrhotic with anasarca and ascites. She is not adw-yhslcdy-yhxrrmdve type II diabetic. In summary patient is a 68-year-old female who presents to the emergency department for evaluation of dyspnea and low blood sugar. Patient is hemodynamically stable upon arrival, hypothermic 94.8 however her [place] Coma Score is currently 13 and she appears lethargic. Physical exam shows a morbidly obese, with a BMI of 42, 68-year-old female although slightly lethargic does not appear to be in acute distress. Auscultation of breath sounds reveals significantly diminished breath sounds at the right base with some rales, normal heart sounds no abdominal pain on palpation with distant but present bowel sounds. Differential diagnosis includes therapeutic misadventure, ACS, CHF, infection, PE etc. Initial workup will be conducted with hematologic labs plain film chest x-ray CT scan PE protocol CT scan abdomen pelvis urinalysis.. Initial interventions include DuoNeb and Decadron, D50 for a fingerstick blood sugar of 45 on arrival. Initial workup reviewed by me shows a normal white count with no shift, venous blood gas with a pH of 7.41 with a venous lactic acid of 2.4, chronic kidney disease with creatinine of 1.4 and NT proBNP of 8260 which is significantly elevated from October which was 5270 a bland urinalysis and my informal interpretation of her CT scan shows significant pleural effusion with compressive atelectasis of the right lower lobe significantly progressed since imaging that I reviewed in October, anasarca, significant ascites, signs of hepatic cirrhosis as well as a left-sided pleural effusion.. Upon repeat evaluation patient responded to resuscitation and is now mentating with a [place] Coma Score 15 although she remains hypothermic she is being rewarmed, she is still requiring oxygen. Given that she has a history of heart failure and cirrhosis and unsure whether this represents CHF or hepatic hydrothorax although I favor the latter. Given this I had interactive discussion with Dr. Jacome about patient management and she will be admitted for Dr. Ortiz for further evaluation and care. Given her radiographic findings I gave her a dose of Lasix and ordered a Saravia insertion for accurate output. (above as per ER physician) Further to above history, patient states she became ill about a week ago with fever, cough, congestion, nausea and vomiting. She also had body aches and chills. She did not go to the doctor as she felt she would get better with time. She continued to feel poorly and became very lethargic. She was recently admitted at [place] due to GI hemorrhage and cirrhosis. She was referred to Dr. Marcelo but has not seen him yet. Hospital Course Hospital Course Hospital Course: Patient received Lasix on admission and did feel better after this. She was seen by cardiology who noted acute on chronic exacerbation of HFrEF and hypoglycemia. BNP at this time was [address] of the chest showing severe cardiomegaly and pulmonary edema with a large right pleural effusion. Patient was noted to have an ejection fraction of 15 to 20%. They recommended aggressive diuresis with 80 mg IV twice a day and spironolactone 25 mg daily. it was noted that when she was admitted to [facility] they did stop some of her heart failure medicines for unknown reasons. Patient was also noted to have chronic atrial fibs with a controlled ventricular response. She was also seen by pulmonology Dr. Gonzalez who noted no evidence of pulmonary embolism with right pleural effusion as well. He did not feel thoracentesis was warranted due to patient not having severe respiratory distress and ability to be weaned to room air with satisfactory O2 sats. He recommended incentive spirometry, daily Advair with DuoNebs as needed. Patient did feel better daily with ongoing diuresis. Heart failure medicines were resumed and potassium was replaced. She was able to ambulate to the chair and tolerated well. Renal function did improve. Potassium did improve. Blood culture showed no growth in 5 days. She was followed by both pulmonology and cardiology during her stay. Cardiology noted diuresis of 9 L. Patient then stated that she was interested in CONTINUING EDUCATION SPECIALIST-D placement. She did have some hypotension and was given additional IV fluids. Lasix was held at this time. On 12/17/2023 patient had successful CONTINUING EDUCATION SPECIALIST?D placement as follows: MPRESSION 1. Successful Pocket formation for biventricular pacemaker generator with cardiac resynchronization/defibrillator therapy. 2. Successful placement of right atrial sensing and pacing lead into the right atrial appendage. 3. Successful placement of a right ventricular sensing, pacing and shocking lead in the right ventricular apex. 4. Successful placement of left ventricular sensing pacing lead via the coronary sinus. 5. Successful permanent cardiac resynchronization/defibrillator generator device. PLAN 1. It is important to slow down patient's atrial fibrillation. Recommend maximizing beta-blockers until continuous BiV pacing occurs at a rate of 70 bpm 2. Standard medical care for systolic heart failure 3. Postop wound care Patient was to follow-up with cardiology in 10 days postprocedure. They will remotely monitor her device. Cardiovascular discharge medicines include Aldactone 25 mg daily, Toprol-XL 25 mg daily, Entresto 24/ twice daily, Jardiance 10 mg daily, Lasix 40 mg 1 to 2 tablets for swelling, Xarelto 15 mg daily and atorvastatin 40 mg nightly. 12/18/2023 patient was tired after the procedure. She was stable to be discharged. To follow-up with cardiology, pulmonology, and Dr. Ortiz.. Exam Data for Last 24 hours Vital signs and Labs for Last 24 Hours: Temp Pulse Resp BP Pulse Ox O2 Del Method O2 Flow Rate 98.1 F 100 H 20 96/67 L 94 L Room Air 6 12/18/23 11:57 12/18/23 12:48 12/18/23 11:57 12/18/23 11:57 12/18/23 11:57 12/18/23 15:00 12/17/23 14:18 FiO2 2 12/13/23 02:00 Narrative: Constitutional: Present no acute distress Comment:: Sitting in chair. She appears very comfortable and is breathing easily. Respiratory: Present CTA bilaterally (Anteriorly and posteriorly) Cardiac: Present Regular Rate GI: Present soft and normal bowel sounds; Absent tenderness or guarding Comments:: Obese Extremities: Present edema (bilateral LE's) Skin: Present intact and ecchymosis (mild around CONTINUING EDUCATION SPECIALIST-D site) Neuro: Present alert, awake and oriented x 3 Results Data Completed and Pending Completed studies during hospitalization [Text1]: 12/12/2023 CXR MPRESSION: Severe cardiomegaly and mild pulmonary edema. Likely CHF. 12/12/2023 Abd/pelvis CT IMPRESSION: 1. Increasing thoracic ascites. Mqtqtbxs-uk-xspux right pleural effusion 2. Increased small ascites. Stable moderate anasarca. 3. Cirrhotic liver. 4. Chronic decreased disc space height through the lumbar spine unchanged from previous exam. 12/12/2023 Chest CTA MPRESSION: 1. Severe cardiomegaly and likely congestive heart failure. 2. No visible acute pulmonary embolus or aortic dissection 3. Large right pleural effusion maybe related to congestive heart failure or thoracic ascites. 12/13/2023 ECHO Conclusion Severe reduction in LV systolic function (LVEF 15%). Asynchronous septum. Septal flattening is also noted, consistent with elevated right-sided pressures. Severe RV dilation with severe reduction in RV function. Biatrial dilation. Severe TR. Tethered posterior MV leaflet with moderate MR (Ashly class IIIB). Mild AI, Mild PI. RVSP is 50-55 mmHg. Pleural effusions. 12/17/2023 CXR IMPRESSION: 1. Suspected moderate right pleural effusion and small left pleural effusion. 2. Stable appearing infiltrate versus atelectasis of the right base. 3. Stable cardiomegaly. 4. No evidence of a pneumothorax status post pacemaker insertion. 12/17/23 08:45: WBC 5.0, RBC 3.58 L, Hgb 9.7 L, Hct 34.3 L, MCV 95.8, MCH 27.2, MCHC 28.4 L, RDW 24.3 H, Plt Count 215, MPV 7.5, Neut % (Auto) 71.0, Lymph % (Auto) 19.9, [place] % (Auto) 8.7, Eos % (Auto) 0.3, Baso % (Auto) 0.1, Neut # (Auto) 3.5, Lymph # (Auto) 1.0, [place] # (Auto) 0.4, Eos # (Auto) 0.0, Baso # (Auto) 0.0, Sodium 140, Potassium 3.6, Chloride 95 L, Carbon Dioxide 37 H, Anion Gap 11.6, BUN 20 H, Creatinine 1.30 H, Estimated Creat Clear 32, Estimated GFR 41 L, Est GFR ( Amer) 49 L, Glucose 112 H, Calcium 8.1 L DS: Diagnosis Discharge Diagnosis (1) Acute exacerbation of CHF (congestive heart failure): Status: Acute Code(s): I50.9 - Heart failure, unspecified Qualifiers: Heart failure type: unspecified Qualified Code(s): I50.9 - Heart failure, unspecified (2) Pleural effusion: Status: Acute Code(s): J90 - Pleural effusion, not elsewhere classified (3) Hypoglycemia associated with type 2 diabetes mellitus: Status: Acute Code(s): E11.649 - Type 2 diabetes mellitus with hypoglycemia without coma (4) Anasarca: Status: Acute Code(s): R60.1 - Generalized edema (5) A-fib: Status: Acute Code(s): I48.91 - Unspecified atrial fibrillation Qualifiers: Atrial fibrillation type: unspecified chronic Qualified Code(s): I48.20 - Chronic atrial fibrillation, unspecified (6) Elevated lactic acid level: Status: Acute Code(s): R79.89 - Other specified abnormal findings of blood chemistry (7) HTN (hypertension): Status: Chronic Code(s): I10 - Essential (primary) hypertension Qualifiers: Hypertension type: essential hypertension Qualified Code(s): I10 - Essential (primary) hypertension (8) COPD (chronic obstructive pulmonary disease): Status: Chronic Code(s): J44.9 - Chronic obstructive pulmonary disease, unspecified Qualifiers: COPD type: unspecified COPD Qualified Code(s): J44.9 - Chronic obstructive pulmonary disease, unspecified (9) Hypothyroid: Status: Chronic Code(s): E03.9 - Hypothyroidism, unspecified Qualifiers: Hypothyroidism type: unspecified Qualified Code(s): E03.9 - Hypothyroidism, unspecified (10) Hyperlipidemia: Status: Chronic Code(s): E78.5 - Hyperlipidemia, unspecified Qualifiers: Hyperlipidemia type: mixed hyperlipidemia Qualified Code(s): E78.2 - Mixed hyperlipidemia (11) Acute on chronic HFrEF (heart failure with reduced ejection fraction): Status: Acute Code(s): I50.23 - Acute on chronic systolic (congestive) heart failure (12) Elevated brain natriuretic peptide (BNP) level: Status: Acute Code(s): R79.89 - Other specified abnormal findings of blood chemistry (13) Anemia: Status: Acute Code(s): D64.9 - Anemia, unspecified (14) Hypokalemia: Status: Acute Code(s): E87.6 - Hypokalemia (15) Severe tricuspid regurgitation: Status: Acute Code(s): I07.1 - Rheumatic tricuspid insufficiency (16) Mitral valve regurgitation: Status: Acute Code(s): I34.0 - Nonrheumatic mitral (valve) insufficiency (17) Presence of combination internal cardiac defibrillator (ICD) and pacemaker: Status: Acute Code(s): Z95.810 - Presence of automatic (implantable) cardiac defibrillator (18) Asthma: Status: Acute Code(s): J45.909 - Unspecified asthma, uncomplicated (19) Valvular heart disease: Status: Acute Code(s): I38 - Endocarditis, valve unspecified Meds Home Medications and Allergies Home Medications ?Medication ?Instructions ?Recorded ?Confirmed ?Type montelukast 10 mg tablet 10 mg PO PM 12/27/17 12/13/23 History fluticasone 250 mcg-salmeterol 50 1 inh inhalation BID 12/04/18 12/13/23 History mcg/dose blistr powdr for inhalation multivitamin 1 tab PO DAILY 04/28/20 12/13/23 History liraglutide 0.6 mg/0.1 mL (18 mg/3 1.8 mg SQ DAILY 06/03/20 12/13/23 History mL) subcutaneous pen injector rosuvastatin 10 mg tablet 10 mg PO HS 01/20/23 12/13/23 History albuterol sulfate 90 mcg/actuation 2 puff inhalation QIDP PRN 11/15/23 12/13/23 History aerosol inhaler Shortness Of Breath levothyroxine 137 mcg tablet 137 mcg PO DAILY 11/15/23 12/13/23 History potassium chloride 10 mEq 10 meq PO BID 11/15/23 12/13/23 History capsule,extended release desvenlafaxine succinate 100 mg 100 mg PO DAILY 12/13/23 12/13/23 History tablet,extended release 24 hr rivaroxaban 15 mg tablet (Xarelto) 15 mg PO QPMWITHMEAL 12/13/23 12/13/23 History empagliflozin 10 mg tablet 10 mg PO DAILY #30 tabs 12/18/23 Rx (Jardiance) furosemide 20 mg tablet 20 mg PO DAILY #30 tabs 12/18/23 Rx metoprolol succinate 25 mg 25 mg PO DAILY #30 tabs 12/18/23 Rx tablet,extended release 24 hr sacubitril 24 mg-valsartan 26 mg 1 tab PO BID #60 tabs 12/18/23 Rx tablet (Entresto) spironolactone 25 mg tablet 25 mg PO DAILY #30 tabs 12/18/23 Rx New Prescriptions to Start Prescriptions: empagliflozin [Jardiance] Marciano Ortiz furosemide Morris,Marciano metoprolol succinate Morris,Marciano sacubitril-valsartan [Entresto] Morris,Marciano spironolactone Morris,Marciano Allergies Allergy/AdvReac Type Severity Reaction Status Date / Time naproxen [From ALEVE] Allergy Intermediate S-SWELLS-OR Verified 07/16/23 15:16 AL/THROAT oxytetracycline Allergy Intermediate Verified 07/16/23 15:16 [From TERRAMYCIN] tetracycline [TETRACYCLINE] Allergy Intermediate NA-SEDATION Verified 07/16/23 15:16 Discharge Plan Disposition Patient Disposition: Home Health Service Condition: Fair Discharge Order Discharge Orders: Discharge Order (Routine); Ordered 12/18/23 Ordered By: Marciano Ortiz Follow up Plan Follow up with: Marciano Ortiz MD [Primary Care Provider] - 12/25/23 2:00 pm Carmelo Escalante MD [Staff Physician] - 12/31/23 10:30 am Katie Gonzalez MD [Physician] - 12/31/23 3:30 pm Prescriptions/Medication Reconciliation: New spironolactone 25 mg Tablet 25 mg PO DAILY Qty: 30 0RF Continued liraglutide 0.6 mg/0.1 mL (18 mg/3 mL) pen injector 1.8 mg SQ DAILY Patient Comments: INJECT 1.8 MG SUBCUTANEOUSLY ONCE DAILY multivitamin Tablet 1 tab PO DAILY levothyroxine 137 mcg tablet 137 mcg PO DAILY Patient Comments: TAKE ONE TABLET BY MOUTH EVERY MORNING ON an EMPTY stomach potassium chloride 10 mEq capsule, extended release 10 meq PO BID Patient Comments: TAKE ONE CAPSULE BY MOUTH TWICE DAILY WITH FOOD albuterol sulfate 90 mcg/actuation HFA aerosol inhaler 2 puff INHALATION QIDP PRN (Reason: Shortness Of Breath) Patient Comments: inhale 1 TO 2 puffs BY MOUTH FOUR TIMES DAILY NEEDED --SHAKE WELL BEFORE USE-- Xarelto 15 mg tablet 15 mg PO QPMWITHMEAL desvenlafaxine succinate 100 mg tablet extended release 24 hr 100 mg PO DAILY furosemide 20 mg tablet 20 mg PO DAILY Qty: 30 0RF metoprolol succinate 25 mg tablet extended release 24 hr 25 mg PO DAILY Qty: 30 0RF Jardiance 10 mg tablet 10 mg PO DAILY Qty: 30 0RF Entresto 24-26 mg tablet 1 tab PO BID Qty: 60 0RF montelukast 10 MG tablet 10 mg PO PM fluticasone propion-salmeterol 250-50 mcg/dose blister with device 1 inh INHALATION BID rosuvastatin 10 mg tablet 10 mg PO HS Other Ambulatory Orders: XR chest 2V (Routine) Timeframe: 2 Weeks Facility: [facility] - Location: Radiology Ordered By: Katie Gonzalez Problem Reconciliation Problems Reviewed?: Yes Patient Discharge Instructions ACTIVITY: Limited activity DIET: continue same diet Patient Instructions: Two Gram Sodium Diet, DI for Heart Failure, DI for Pacemaker Insertion, DI for Hypoglycemia, DI for Surgical Site Infection Print Language: Sinhala Providers Primary Care Provider: Marciano Ortiz Admit Provider: Merari Jacome Attending Provider: Marciano Ortiz
== END 2023-12-18 15:21 | disposition home health service (06) | DRG 276 ==
LOC: ER 21:23 → 2ND 22:02
PROVIDERS: Internal Medicine; Nurse Practitioner Family; Physician Assistant; Admitting Provider Family Medicine; Emergency Provider Emergency Medicine; PCP Family Medicine; Visit Provider Family Medicine
PROC: 0JH609Z Insertion of Cardiac Resynchronization Defibrillator Pulse Generator into Chest Subcutaneous Tissue and Fascia, Open Approach (ICD-10-PCS; CPT 33249; principal; 2023-12-17 09:30)
DX: I50.23 Acute on chronic systolic (congestive) heart failure; J98.11 Atelectasis; I48.21 Permanent atrial fibrillation; Z68.42 Body mass index [BMI] 45.0-49.9, adult; R18.8 Other ascites; E11.649 Type 2 diabetes mellitus with hypoglycemia without coma; I13.0 Hypertensive heart and chronic kidney disease with heart failure and stage 1 through stage 4 chronic kidney disease, or unspecified chronic kidney disease; Z60.2 Problems related to living alone; J44.9 Chronic obstructive pulmonary disease, unspecified; E66.01 Morbid (severe) obesity due to excess calories; N18.9 Chronic kidney disease, unspecified; E11.22 Type 2 diabetes mellitus with diabetic chronic kidney disease; K74.60 Unspecified cirrhosis of liver; K75.9 Inflammatory liver disease, unspecified; I42.8 Other cardiomyopathies; I34.0 Nonrheumatic mitral (valve) insufficiency; Z79.85 Long-term (current) use of injectable non-insulin antidiabetic drugs; Z79.899 Other long term (current) drug therapy
CPT/HCPCS: 33249; 36415; 51702; 71045; 71275; 74177; 80048; 80053; 80061; 80076; 81001; 82009; 82803; 82962; 83036; 83605; 83690; 83735; 83880; 84100; 85025; 85610; 86803; 87265; 87389; 87486; 87581; 87632; 87635; 93005; 93306; 94640; 94761; 97162; 97165; 99291; C1769; C1882; C1895; C1898; C1900; J1940; J2405; J2704; J3480; J7030; Q9957; Q9967

== ENCOUNTER 2023-12-31 11:54 | Outpatient (CLI) | payer MEDICARE, SELFPAY ==
--- NOTE | 2023-12-31 11:57 | XR_ITS ---
FINAL REPORT CLINICAL HISTORY: Pleural effusion COMPARISON: 11/15/2023 FINDINGS: Two views of the chest were obtained. A new left subclavian ICD is noted. The heart is enlarged. There is persistent pulmonary vascular congestion. The mediastinum is normal. The small to moderate right pleural effusion appears stable from the prior exam. The left pleural effusion has improved. There are right base opacities which favor atelectasis. There is no pneumothorax. The bony thorax is intact. IMPRESSION: Right base opacities favor atelectasis. Stable right pleural effusion and improved left pleural effusion. Reviewed, Interpreted and Dictated by Samy Tirado III, MD Transcribed by Marcelle Saunders Authenticated and . [facility]
== END 2023-12-31 23:59 | disposition home or self-care (01) ==
LOC: RAD 11:55
PROVIDERS: PCP Family Medicine; Visit Provider Internal Medicine Pulmonary Disease
DX: J90 Pleural effusion, not elsewhere classified (principal)
CPT/HCPCS: 71046

== ENCOUNTER 2024-01-10 08:21 | Outpatient (CLI) | payer MEDICARE, SELFPAY ==
[2024-01-10] VITALS (7 sets, daily range): BP systolic 90–103; BP diastolic 51–72; PULSE 75–92; RESP 18–20; TEMP 36.2–36.3; O2SAT 94–100; BMI 42.8
--- NOTE | 2024-01-10 08:33 | US_ITS ---
FINAL REPORT CLINICAL HISTORY: Pleural Effusion RT SIDE -- KATIE SUMNER -- 1050 ML REMOVED FINDINGS: ULTRASOUND GUIDED THORACENTESIS HISTORY: Right pleural effusion. ATTENDING PHYSICIAN: Dr. Sen PHYSICIAN PAPER [employer] GRADER: Hoa Maurer PA-C TECHNIQUE: Informed consent was obtained from the patient. Timeout procedure was performed prior to beginning. Risks and benefits of the procedure, including pneumothorax requiring chest tube placement, were discussed with the patient prior to beginning. The patient was prepped and draped in routine fashion over the right back. Local anesthesia was achieved with 1% lidocaine. Using imaging guidance with images acquired, an 18-gauge sheath needle was directed into the pleural fluid. Approximately 1050 mL liters of yellow serous fluid was aspirated. Fluid was sent for laboratory analysis. IMPRESSION: Successful ultrasound guided right thoracentesis. Reviewed, Interpreted and Dictated by Adonis Sen MD Transcribed by Hoa Maurer PA-C Authenticated and . [facility]
[2024-01-10 09:16] LABS: POC Glucose,Bedside 71 (70-110)
--- NOTE | 2024-01-10 09:35 | XR_ITS ---
FINAL REPORT TECHNIQUE: Chest PA & Lateral CLINICAL HISTORY: STATUS POST THORACENTESIS COMPARISON: 10/27/2020 FINDINGS: 2 views of the chest were performed. There is a new left subclavian biventricular pacemaker. There is mild cardiomegaly. The mediastinum is within normal limits. There is no acute cardiopulmonary process. There are no pleural effusions. There is no pneumothorax. The bony thorax appears intact. IMPRESSION: Cardiomegaly and interval placement of left subclavian pacemaker. Reviewed, Interpreted and Dictated by Adonis Sen MD Transcribed by Marcelle Saunders Authenticated and [facility]
[2024-01-10 15:23] LABS: Appearance,Body Fld. Normal; Source, Body Fld. Pleural Fluid; TNC,Body Fluid 179 cells/uL (< 1000); Volume,Body Fld. 1050 mL
[2024-01-10 15:24] LABS: RBC,Body Fluid < 10 cells/uL (< 10 X 10^3)
[2024-01-10 15:25] LABS: Mononuclear WBCs,Body Fluid 79 %
[2024-01-10 15:26] LABS: Polynuclear WBC,Body Fluid 21 %
[2024-01-11 12:18] LABS: Albumin, Body Fluid 1.6 g/dL (Not Estab.); LD, Body Fluid 136 IU/L (.); Protein, Body Fluid 2.9 g/dL (.)
== END 2024-01-10 11:50 | disposition home or self-care (01) ==
PROVIDERS: PCP Family Medicine; Visit Provider Internal Medicine Pulmonary Disease
DX: J90 Pleural effusion, not elsewhere classified (principal)
CPT/HCPCS: 32555; 71046; 82042; 82962; 83615; 84155; 87070; 88112; 88305; 89051

== ENCOUNTER 2024-04-28 07:40 | Outpatient (CLI) | payer MEDICARE, SELFPAY ==
[2024-04-28] MEDS: ALBUTEROL 0.083% 2.5 MG/3 ML NEB IH (08:30)
[2024-04-28 08:46] VITALS: PULSE 75; PULSE 82
== END 2024-04-28 23:59 | disposition home or self-care (01) ==
LOC: RT 07:40
PROVIDERS: PCP Family Medicine; Visit Provider Internal Medicine Pulmonary Disease
DX: R06.09 Other forms of dyspnea (principal)
CPT/HCPCS: 94060; 94640; 94726; 94729; J7613

== ENCOUNTER 2024-08-13 15:31 | Outpatient (CLI) | payer MEDICARE, SELFPAY ==
--- OUTSIDE RECORDS SUMMARY | 2024-05-22 10:00 | XMS_ITS ---
Author Organization [facility] Address [address] [facility] [address] [place] [id number] Care Team Providers Care Crate Liner Name Role Phone Marciano Ortiz Primary Care Provider [phone] Latosha Huynh Unavailable [phone] Allergies Allergen (clinical drug ingredient) Drug/Non Drug Allergy documented on EMR Reaction Allergy Type Onset Date Status Aleve Unknown Drug Allergy Active polymyxin B Polymyxin B Unknown Drug Allergy 02/06/2018 Ac tive tetracycline Tetracycline Unknown Drug Allergy A ctive Results Component Value Reference Range Notes Influenza Screen (in house) Reviewed date:05/22/2024 03:57:17 PM Interpretation:neg Performing Lab: Notes/Report: neg results neg CBC Fingerstick (in house) Reviewed date:05/22/2024 03:57:17 PM Interpretation: Performing Lab: Notes/Report: wbc 10.3 3.5 - 10 lym 14.5 15 - 50 mid 4.6 2 - 15 gran 80.9 35 - 80 rbc 4.14 3.5 - 5.5 hgb 12.9 11.5 - 16.5 hct 39.0 35 - 55 mcv 94.0 75 - 100 mch 31.3 25 - 35 mchc 33.2 31 - 38 plat 162 100 - 400 P-Comprehensive Metabolic Pa abhinav (CMP) Reviewed date:06/03/2024 03:11:46 PM Interpretation:Chl 94, Glu 158, BUN 42, Creat 1.47, eGFR 39, A/G Ratio 1.1 Performing Lab: Notes/Report: Test performed by [employer], [facility] [address] [place] [address] , [address], [place] [address] Babak Giordano MD, Compensation Adjuster CLIA: [id number] Sodium 136 135-145 mmol/L Potassium 5.1 3.5-5.3 mmol/L Chloride 94 97-108 mmol/L CO2 27 22-32 mmol/L Glucose 158 65-99 mg/dL BUN 42 8-23 mg/dL Creatinine 1.47 0.50-1.00 mg/dL Calcium 9.6 8.6-10.4 mg/dL eGFR by Creatinine 39 >59 mL/min/1.73m2 Protein 7.7 6.0-8.3 g/dL Albumin 4.0 3.5-5.3 g/dL Alkaline Phosphatase 119 35-121 IU/L ALT (SGPT) 16 <5-47 IU/L AST (SGOT) 20 <5-40 IU/L Bilirubin, Total 0.5 <0.2-1.2 mg/dL A/G Ratio 1.1 1.1-2.5 Covid test (in house) Reviewed date:05/22/2024 03:57:17 PM Interpretation:neg Performing Lab: Notes/Report: neg Result: neg REASON FOR VISIT cough & congestion Medications Medication SIG (Take, Route, Frequency, Duration) Notes Start Date End Date Status Todd Cedilloe 3 Sensor - as directed 05/15/2023 Active Jardiance 10 MG 1 tablet Orally Once a day; Duration: 90 days Active Albuterol Sulfate (2.5 MG/3ML) 0.083% 3 mL as needed Inhalation every 6 hrs 02/20/2024 Active Furosemide 40 MG 1 tablet Orally Once a day; Duration: 90 days Active Spironolactone 50 MG 1 tablet Orally Onc e a day; Duration: 90 days Active Montelukast Sodium 10 mg TAKE ONE TABLET BY MOUTH EVERY DAY; Duration: 90 days Active Metoprolol Succinate ER 25 MG 1 tablet Orally Once a day; Duration: 90 days 04/18/2023 Active Crestor 10 MG 1 tablet Orally Once a day; Duration: 90 days Active Levothyroxine Sodium 137 MCG 1 tablet in the morning on an empty stomach Orally Once a day; Duration: 90 days Active Vitamin B-12 1000 MCG 1 tablet Orally On a day 11/27/2023 Active Fluticasone Propionate 50 MCG/ACT 1 spray(s) intranasally Two times a day 06/30/2019 Active Advair Diskus 250-50 MCG/ACT 1 inh inhaled 2 times a day; Duration: 30 days Active Feosol Bifera 28 MG 1 tablet Orally Once a day 11/27/2023 Active Loratadine 10 MG 1 tablet Orally Once a day; Duration: 90 days 01/31/2023 Active Wheelchair - as directed 04/18/2023 Acti ve Centrum Silver Ultra Womens - 1 tab(s) orally once a day Active Acetaminophen 325 MG 2 tablet as needed Orally every 6 hrs as needed Active Promethazine-DM 6.25-15 MG/5ML 5 ml as needed Orally every 6 hrs, prn 05/22/2024 Active Ondansetron HCl 4 MG 1 tablet Orally tid prn Active Desvenlafaxine ER 50 MG 1 tablet Orally Once a day; Duration: 30 day(s) Active Albuterol Sulfate HFA 108 (90 Base) MCG/ACT inhale 1 TO 2 puffs BY MOUTH FOUR TIMES DAILY NEEDED --SHAKE WELL BEFORE USE--; Duration: 30 Active Cefdinir 300 MG 1 cap(s) Orally Two times a day; Duration: 10 day(s) 05/22/2024 Active Tresiba FlexTouch 200 UNIT/ML 60 units Subcutaneous once daily 05/01/2024 Active Entresto 24-26 MG TAKE ONE TABLET BY M OUTH TWICE DAILY; Duration: 30 Active Ozempic (0.25 or 0.5 MG/DOSE) 2 MG/3ML 0.5 mg Subcutaneous once weekly 04/27/2024 Active Xarelto 15 MG 1 tablet with food O rally once a day; Duration: 90 days Active Vital Signs Blood pressure systolic 120 mm Hg 05/23/19 25 Blood pressure diastolic 70 mm Hg 025 Heart Rate 50 /min 05/22/2024 Height 62 in 05/22/2024 Weight 209.8 lbs 05/22/2024 BMI 38.37 kg/m2 05/22/2024 Encounters Encounter Location Date Provider Diagnosis [facility] [address], [place] [phone] 05/22/2024 Latosha Hyunh Acute URI J06.9 ; Ty pe 2 diabetes mellitus without complication, without long-term current use of insulin E11.9 ; Hypertension, unspecified type I10 and Hypothyroidism E03.9 Assessments Encounter Date Diagnosis (ICD Code) Assessment Notes Treatment Notes Treatment Clinical Notes Section Notes 05/22/2024 Acute URI (ICD-10 - J06.9) 05/22/2024 Type 2 diabetes mellitus without complication, without long-term current use of insulin (ICD-10 - E11.9) 05/22/2024 Hypertension, unspecified type (ICD-10 - I10) 05/22/2024 Hypothyroidism (ICD-10 - E03.9) Plan Of Treatment Medication Medication Name Sig Start Date Stop Date Notes Promethazine-DM 6.25-15 MG/5ML 5 ml as n eeded Orally every 6 hrs, prn 05/22/2024 Cefdinir 300 MG 1 cap(s) Orally Two times a day; Duration: 10 day(s) 05/22/2024 Next Appt Details Follow Up: via phone to repo rt test results, Reason: Progress Notes * CURRENT, REBECCADOB:[birth year] (68 yo F)Acc No.[id number]:05/22/2024 Progress Notes Patient: ALINA MEANS Provider: BURAK Schrader :1955 A ge:68 Y S ex:Female Date:05/22/2024 Address:[address] [place] [address] [id number] Pcp:Marciano Ortiz Subjective: * Chief Complaints: * 1 . Cough & congestion. * HPI: E NT/respiratory: 68 year old female presents with c/o sore throat. c/o cough. c/o nasal congestion. c/o Fever. c/o headache. c/o body aches. Denies : ear pain. Pt sts all of her symptoms started about a week ago. G astroenterology: c/o Vomiting. c/o Diarrhea. c/o Fever w ith chills. C ardiology: c/o Fatigue. H PI: c/o Patient is here today for P t sts that Dr. Ortiz wanted her to have labs done as well after starting her on Ozempic. * ROS: D ERMATOLOGY: no R margot. n o H thompson. G ASTROENTEROLOGY: no N ausea. n o V omiting. U ROLOGY: no D ifficulty urinating. n o B lood in urine. * Medical History: C ongestive Heart Failure, Dx: 2000 - Dr. Escalante Architect, Hypertension, Hyperlipidemia, Type 2 Diabetes, Hypothyroidism, Depression, Irritable Bowel Syndrome with Diarrhea, Osteoarthritis, knees, Asthma/COPD, Allergic Rhinitis, Low Back Pain, Atrial fibrillation, Dx: 2018, Cirrhosis, Ascities, Pacemaker/defibrillator. * Surgical History: B ilateral Tubal Ligation 1990, Cholecystectomy 1994, Heart Cath - [facility] - Dr. Escalante 03/2015, Rt Ovarian Cyst removed 11/2016, Esophageal dilation , pacemaker-defibrillator 11/2023. * Hospitalization/Major Diagno stic Procedure: O varian Cyst Removal- [facility] 11/2016. * Family History: F ather: , diagnosed with Hypertension, family history unknown . M other: 92 yrs, diagnosed with Hypertension, Heart Disease. S iblings: alive, diagnosed with Diabetes, Heart Disease, Cancer. C hildren: alive. P aternal Grand Father: family history unknown .?Paternal Grand Mother: family history unknown . M aternal Grand Mother: diagnosed with Hypertension, Heart Disease, Stroke. M aternal aunt: diagnosed with Cancer. 2 brother(s) , 4 sister(s) . 2 son(s) , 1 daughter(s) . . Aunt - Breast Cancer - Double Mastectomy\nSister - Skin Cancer - places removed. * Social History: C URRENT TOBACCO USE S moking Status: P atient does NOT smoke, F ormer Smoker:?Yes, Q uit smoking: a ge 22 started smoking at age 7, stopped at age 22. age [age], 2-3 packs a day. * Medications: T aking Desvenlafaxine ER 50 MG Tablet Extended Release 24 Hour 1 tablet Orally Once a day , Taking Acetaminophen 325 MG Tablet 2 tablet as needed Orally every 6 hrs as needed , Taking Ondansetron HCl 4 MG Tablet 1 tablet Orally tid prn , Taking Centrum Silver Ultra Womens - Tablet 1 tab(s) orally once a day , Taking Fluticasone Propionate 50 MCG/ACT Suspension 1 spray(s) intranasally Two times a day , Taking Loratadine 10 MG Tablet 1 tablet Orally Once a day , Taking Wheelchair - Miscellaneous as directed , Taking Advair Diskus 250-50 MCG/ACT Aerosol Powder Breath Activated 1 inh inhaled 2 times a day , Taking Feosol Bifera 28 MG Tablet 1 tablet Orally Once a day , Taking Vitamin B-12 1000 MCG Tablet 1 tablet Orally Once a day , Taking Crestor 10 MG Tablet 1 tablet Orally Once a day , Taking Levothyroxine Sodium 137 MCG Tablet 1 tablet in the morning on an empty stomach Orally Once a day , Taking Montelukast Sodium 10 mg Tablet TAKE ONE TABLET BY MOUTH EVERY DAY , Taking Metoprolol Succinate ER 25 MG Tablet Extended Release 24 Hour 1 tablet Orally Once a day , Taking FreeStyle Margaret 3 Sensor - Miscellaneous as directed , Taking Jardiance 10 MG Tablet 1 tablet Orally Once a day , Taking Furosemide 40 MG Tablet 1 tablet Orally Once a day , Taking Spironolactone 50 MG Tablet 1 tablet Orally Once a day , Taking Albuterol Sulfate (2.5 MG/3ML) 0.083% Nebulization Solution 3 mL as needed Inhalation every 6 hrs , Taking Xarelto 15 MG Tablet 1 tablet with food Orally once a day , Taking Ozempic (0.25 or 0.5 MG/DOSE) 2 MG/3ML Solution Pen-injector 0.5 mg Subcutaneous once weekly , Taking Tresiba FlexTouch 200 UNIT/ML Solution Pen- injector 60 units Subcutaneous once daily , Taking Entresto 24-26 MG Tablet TAKE ONE TABLET BY MOUTH TWICE DAILY , Taking Albuterol Sulfate HFA 108 (90 Base) MCG/ACT Aerosol Solution inhale 1 TO 2 puffs BY MOUTH FOUR TIMES DAILY NEEDED --SHAKE WELL BEFORE USE-- , Medication List reviewed and reconciled with the patient * Allergies: A leve, Tetracycline, Polymyxin B - Onset Date 02/06/2018. Objective: * Vitals: W t: 209.8, Temp: 97.7, BP: 120/70, HR: 50, O2 Sat: 100% on RA, Nurse: zia, Ht: 62, BMI:38.37. * Examination: E NT/Respiratory: General Appearance: N AD. E ars: a uditory canals normal bilaterally, TM's WNL. N ose : turbinates red, congested. S inuses : n on tender bilaterally. O ral cavity : erythema without exudate on pharynx. N olivia : n o cervical lymphadenopathy. H eart : R RR, normal S1 S2, no murmurs. L ungs: c lear to auscultation bilaterally. A bdomen : BS present, soft, nontender. Assessment: * Assessment: 1. A cute URI - J06.9 (Primary) 2 . T ype 2 diabetes mellitus without complication, without long-term current use of insulin - E11.9 3 . H ypertension, unspecified type - I10 4 . H ypothyroidism - E03.9 Plan: * Treatment: Value Reference Range r esults neg * Bianca Amparo 05/22/2024 02:47 :55 PM > Provider reviewed results while patient in office. ?LAB: CBC Fingerstick (in house) (Collection Date & Time - 05/22/2024)* Value Reference Range w bc 10.3 3.5 - 10 * l ym 14.5 15 - 50 * m id 4.6 2 - 15 * g ran 80.9 35 - 80 * r bc 4.14 3.5 - 5.5 * h gb 12.9 11.5 - 16.5 * h ct 39.0 35 - 55 * m cv 94.0 75 - 100 * m ch 31.3 25 - 35 * m chc 33.2 31 - 38 * p lat 162 100 - 400 * Bianca Amparo 05/22/2024 02:26 :52 PM > Provider reviewed results while patient in office. ?LAB: Covid test (in house) (Collection Date & Time - 05/22/2024)?neg* Value Reference Range R esult: neg * Bianca Amparo 05/22/2024 02:48 :17 PM > Provider reviewed results while patient in office. 2.?Type 2 diabetes mellitus without complication, without long-term current use of insulin?LAB: P-Comprehensive Metabolic Panel (CMP) (Collection Date & Time - 05/22/2024 02:01 PM)?Chl 94, Glu 158, BUN 42, Creat 1.47, eGFR 39, A/G Ratio 1.1 * Value Reference Range A /G Ratio 1.1 L 1.1-2.5 - * A lbumin 4.0 3.5-5.3 - g/dL * A lkaline Phosphatase 119 35-121 - IU/L * A LT (SGPT) 16 <5-47 - IU/L * A ST (SGOT) 20 <5-40 - IU/L * B ilirubin, Total 0.5 <0.2-1.2 - mg/dL * B UN 42 H 8-23 - mg/dL * C alcium 9.6 8.6-10.4 - mg/dL * C hloride 94 L 97-108 - mmol/L * C O2 27 22-32 - mmol/L * C reatinine 1.47 H 0.50-1.00 - mg/dL * G lucose 158 H 65-99 - mg/dL * P otassium 5.1 3.5-5.3 - mmol/L * S odium 136 135-145 - mmol/L * P rotein 7.7 6.0-8.3 - g/dL * e GFR by Creatinine 39 L >59 - mL/min/1.73m2 * Latosha Huynh 06/03/2024 3: 11:42 PM > see TE * Procedure Codes: G 2211 Complex e/[place], [address] [place], [address] CBC WITH AUTO DIFF, 27615 Flu Test- Nasal Swab, Modifiers: QW , 57434 COVID TEST IN HOUSE, Modifiers: QW , G8752 MOST RECENT SYSTOLIC BP < 140MM HG, G8754 MOST RECENT DIASTOLIC BP < 90MM HG, 3051F HG A1C>EQUAL 7.0%<8.0% * Follow Up: v ia phone to report test results * Images: Billing Information: * Visit Code: 28629 Office Visit, Est Pt., Level 3. * Procedure Codes: G2211 Complex e/[place] [address] [place]. [address] CBC WITH AUTO DIFF. 19778 Flu Test- Nasal Swab. Modifiers: QW 33397 COVID TEST IN HOUSE. Modifiers: QW G8752 MOST RECENT SYSTOLIC BP < 140MM HG. G8754 MOST RECENT DIASTOLIC BP < 90MM HG. 3051F HG A1C>EQUAL 7.0%<8.0%. * Electronic signature of BURAK Page on 08/13/2024 at 03:35 PM EDT Sign off status: Pending * Provider: BURAK Schrader Date: 0 05/22/2024 Generated for Ellen ledezma/Melania/Naren on: 0 08/13/2024 03:35 PM EDT History and Physical Notes * HPI (History of Present Illness) Category Sub-Category Detail Notes Category Not es ENT/respiratory sore throat Pt sts all o f her symptoms started about a week ago ear pain cough Fever headache nasal congestion body aches Cardiology Fatigue Gastroenterology Fever with chills Vomiting Diarrhea HPI Patient is here today for Pt sts that Dr. Ortiz wanted her to have labs done as well after starting her on Ozempic Examination Category Sub-Category Detail Notes Category Not es ENT/Respiratory Oral cavity : erythema without exudate on pharynx Sinuses : non tender bilateral ly Ears: auditory canals norm al bilaterally, TM's WNL Neck : no cervical lymphade nopathy Heart : RRR, normal S1 S2, n o murmurs Lungs: clear to auscultatio n bilaterally Abdomen : BS present, soft, no ntender General Appearance: NAD Nose : turbinates red, noa ested
--- OUTSIDE RECORDS SUMMARY | 2024-07-02 04:50 | XMS_ITS ---
Author Organization [facility] Address [address] [place] [phone] Care Team Providers Care Game Agent Name Role Phone Marciano Ortiz Primary Care Provider [phone] Latosha Menendez [phone] Results Component Value Reference Range Notes P-Basic Metabolic Panel (BMP ) Reviewed date:07/15/2024 06:06:22 PM Interpretation: Performing Lab: Notes/Report: Test performed by [employer], [employer] [address] [place] [address] , [address], [place] [address] Babak Giordano MD, Sales Trader CLIA: [id number] Sodium 135 135-145 mmol/L Potassium 5.9 3.5-5.3 mmol/L Chloride 96 97-108 mmol/L CO2 29 22-32 mmol/L Glucose 179 65-99 mg/dL BUN 46 8-23 mg/dL Creatinine 1.63 0.50-1.00 mg/dL Calcium 9.5 8.6-10.4 mg/dL eGFR by Creatinine 34 >59 mL/min/1.73m2 REASON FOR VISIT lab recheck Encounters Encounter Location Date Provider Diagnosis [facility] [address] [place] [id number] 07/02/2024 Latosha Huynh Renal insufficiency N28.9 Assessments Encounter Date Diagnosis (ICD Code) Assessment Notes Treatment Notes Treatment Clinical Notes Section Notes 07/02/2024 Renal insufficiency (ICD-10 - N28.9) Plan Of Treatment No Information Progress Notes * CURRENTALINADOB:[birth year] (68 yo F)Acc No.[id number]:07/02/2024 Patient: ALINA MEANS Provider: BURAK Schrader :1955 A ge:68 Y S ex:Female Date:07/02/2024 Address:[address] [place], [place] [address] Pcp:Marciano Ortiz Subjective: * Chief Complaints: * 1 . Lab recheck. * Medical History: Objective: * Vitals: Assessment: * Assessment: 1. R enal insufficiency - N28.9 (Primary) Plan: * Treatment: Value Reference Range B UN 46 H 8-23 - mg/dL * C alcium 9.5 8.6-10.4 - mg/dL * C hloride 96 L 97-108 - mmol/L * C O2 29 22-32 - mmol/L * C reatinine 1.63 H 0.50-1.00 - mg/dL * G lucose 179 H 65-99 - mg/dL * P otassium 5.9 H 3.5-5.3 - mmol/L * S odium 135 135-145 - mmol/L * e GFR by Creatinine 34 L >59 - mL/min/1.73m2 * Latosha Huynh 07/15/2024 0 6:06:17 PM >see TE * Images: Billing Information: * Visit Code: * Procedure Codes: * Electronic signature of BURAK Page on 08/13/2024 at 03:36 PM EDT Sign off status: Pending * Provider: BURAK Schrader Date: 0 07/02/2024 Generated for Jonathani ng/Faxing/eTransmitting on: 0 08/13/2024 03:36 PM EDT
--- OUTSIDE RECORDS SUMMARY | 2024-07-30 10:00 | XMS_ITS ---
Author Organization [facility] Address [address] [facility] [address] HARISH Pedroza [id number] Care Team Providers Care Community Health Promoter Name Role Phone Marciano Ortiz Primary Care Provider Latosha Huynh Unavailable [phone] Allergies Allergen (clinical drug ingredient) Drug/Non Drug Allergy documented on EMR Reaction Allergy Type Onset Date Status Aleve Unknown Drug Allergy Active polymyxin B Polymyxin B Unknown Drug Allergy 02/06/2018 Ac tive tetracycline Tetracycline Unknown Drug Allergy A ctive Results Component Value Reference Range Notes CBC Venipuncture (in house) Reviewed date:08/06/2024 02:19:27 PM Interpretation:Normal Performing Lab: Notes/Report: Normal wbc 11.4 3.5 - 10 lymph 12.7 15 - 50 mid 4.7 2 - 15 gran 82.6 35 - 80 rbc 4.49 3.5 - 5.5 hgb 14.0 11.5 - 16.5 hct 43.5 35 - 55 mcv 96.7 75 - 100 mch 31.1 25 - 35 mchc 32.2 31 - 38 platlet 231 100 - 400 P-Vitamin B12 Reviewed date:08/06/2024 02:19:26 PM Interpretation:1970 Performing Lab: Notes/Report: Test performed by [facility] [employer] [address] [place] [address] , [address], [place] [address] Babak Giordano MD, Senior Product Development Scientist CLIA: [id number] Vitamin B12 7584 165-7513 pg/mL P-Comprehensive Metabolic Pa abhinav (CMP) Reviewed date:08/06/2024 02:19:27 PM Interpretation:Chl 95, Glu 148, BUN 27, Creat 1.31, eGFR 44, A/G 1.1 Performing Lab: Notes/Report: Test performed by [facility] [address] , [address], [place] [address] Babak Giordano MD, Senior Product Development Scientist CLIA: [id number] Sodium 135 135-145 mmol/L Potassium 4.3 3.5-5.3 mmol/L Chloride 95 97-108 mmol/L CO2 28 22-32 mmol/L Glucose 148 65-99 mg/dL BUN 27 8-23 mg/dL Creatinine 1.31 0.50-1.00 mg/dL Calcium 9.4 8.6-10.4 mg/dL eGFR by Creatinine 44 >59 mL/min/1.73m2 Protein 7.6 6.0-8.3 g/dL Albumin 3.9 3.5-5.3 g/dL Alkaline Phosphatase 108 35-121 IU/L ALT (SGPT) 12 <5-47 IU/L AST (SGOT) 15 <5-40 IU/L Bilirubin, Total 0.6 <0.2-1.2 mg/dL A/G Ratio 1.1 1.1-2.5 P-Ferritin Reviewed date:08/06/2024 02:19:27 PM Interpretation:Normal Performing Lab: Notes/Report: Test performed by [facility] [address] , [address], [place] [address] Babak Giordano MD, Senior Product Development Scientist CLIA: [id number] Ferritin 159.0 13.0-301.0 ng/mL P-Iron Reviewed date:08/06/2024 02:19:27 PM Interpretation:Normal Performing Lab: Notes/Report: Test performed by [facility] [address] , [address], [place] [address] Babak Giordano MD, Senior Product Development Scientist CLIA: [id number] Iron 43 37-145 ug/dL P-Microalbumin/Creatinine, R andom Urine Sample Reviewed date:08/06/2024 02:19:27 PM Interpretation:Normal Performing Lab: Notes/Report: Test performed by [facility] [address] , [address], [place] [address] Babak Giordano MD, Senior Product Development Scientist CLIA: [id number] Albumin/Creatinine Ratio, Urine 18 0-30 ug/m g Microalbumin, Urine, Random 1.2 Creatinine, Urine 67.5 Reason For Referral Diagnosis 1 Dyspepsia (R10.13) [facility]erring Provider First Name Latosha Referring Provider Last Name Lino Referring Provider Speciality Physician Grant Writer Referred Provider Specialty Gastroentero logy General Notes Latosha Huynh 01/2025 02:28:47 PM > Pt needs to see Appel Bolton Brynn 07/30/2024 03:35:09 PM > faxed to Dr. Marcelo office Referral Priority Routine REASON FOR VISIT Checkup with Annual Wellness, due for diabetic eye exam Medications Medication SIG (Take, Route, Frequency, Duration) Notes Start Date End Date Status FreeStyle Margaret 3 Plus Sensor - change every 15 days; Duration: 90 days Active Rosuvastatin Calcium 10 mg TAKE ONE TABL ET BY MOUTH EVERY DAY AT BEDTIME; Duration: 90 Active Levothyroxine Sodium 137 mcg TAKE ONE TABLET BY MOUTH EVERY MORNING ON AN EMPTY STOMACH; Duration: 90 Active Albuterol Sulfate HFA 108 (90 Base) MCG/ACT inhale 1 TO 2 puffs BY MOUTH FOUR TIMES DAILY NEEDED - SHAKE WELL BEFORE USE-; Duration: 30 Active Ozempic (0.25 or 0.5 MG/DOSE) 2 MG/3ML 0.5 mg Subcutaneous once weekly 04/27/2024 Active Entresto 24-26 MG TAKE ONE TABLET BY M OUTH TWICE DAILY; Duration: 30 Active Xarelto 15 MG 1 tablet with food O rally once a day; Duration: 90 days Active Tresiba FlexTouch 200 UNIT/ML 60 units Subcutaneous once daily 05/01/2024 Active Jardiance 10 MG 1 tablet Orally Once a day; Duration: 90 days Active Furosemide 40 MG 1/2 tab Orally Once a day; Duration: 90 days Active Metoprolol Succinate ER 25 MG 1 tablet Orally Once a day; Duration: 90 days 04/18/2023 Active Spironolactone 50 MG 1 tablet Orally Onc e a day; Duration: 90 days Active Albuterol Sulfate (2.5 MG/3ML) 0.083% 3 mL as needed Inhalation every 6 hrs 02/20/2024 Active Advair Diskus 250-50 MCG/ACT 1 inh inhaled 2 times a day; Duration: 30 days Active Feosol Bifera 28 MG 1 tablet Orally Once a day 11/27/2023 Active Vitamin B-12 1000 MCG 1 tablet Orally On ce a day 11/27/2023 Active Montelukast Sodium 10 mg TAKE ONE TABLET BY MOUTH EVERY DAY; Duration: 90 days Active Wheelchair - as directed 04/18/2023 Acti ve Desvenlafaxine ER 50 MG 1 tablet Orally Once a day; Duration: 30 days Active Ondansetron HCl 4 MG 1 tablet Orally tid prn Active Loratadine 10 MG 1 tablet Orally Once a day; Duration: 90 days 01/31/2023 Active Centrum Silver Ultra Womens - 1 tab(s) orally once a day Active Fluticasone Propionate 50 MCG/ACT 1 spray(s) intranasally Two times a day 06/30/2019 Active Acetaminophen 325 MG 2 tablet as needed Orally every 6 hrs as needed Active Problems Problem Type SNOMED Code ICD Code Onset Dates Problem Status W/U Status Risk Notes Problem Type 2 diabetes mellitus with other specified complication, unspecified whether skilled nursing insulin use (E11.69) Active confirmed Problem Morbid obesity (disorder) (331135698) Morbid (severe) obesity due to excess calories (E66.01) Active confirmed Problem Portal hypertension (54798987) Portal hypertension (K76.6) Active confirmed Problem Cardiomyopathy (88953988) Cardiomyopathy, unspecified type (I42.9) Active confirmed Vital Signs Blood pressure systolic 100 mm Hg 07/31/19 25 Blood pressure diastolic 60 mm Hg 025 Heart Rate 70 /min 07/30/2024 Height 62 in 07/30/2024 Weight 223 lbs 07/30/2024 BMI 40.78 kg/m2 07/30/2024 Encounters Encounter Location Date Provider Diagnosis [facility] [address] [place] [phone] 07/30/2024 Latosha Huynh Adult general medica l examination Z00.00 ; Dyspepsia R10.13 ; Depression with anxiety F41.8 ; Congestive heart failure, unspecified congestive heart failure chronicity, unspecified congestive heart failure type I50.9 ; Essential hypertension I10 ; Renal insufficiency N28.9 ; Vitamin B12 deficiency E53.8 ; Type 2 diabetes mellitus without complication, without long-term current use of insulin E11.9 ; Acquired hypothyroidism E03.9 ; Iron deficiency E61.1 ; Screening mammogram, encounter for Z12.31 ; Hepatic cirrhosis, unspecified hepatic cirrhosis type, unspecified whether ascites present K74.60 ; Atrial fibrillation with RVR I48.91 ; Anemia, unspecified type D64.9 ; Mixed hyperlipidemia E78.2 ; Type 2 diabetes mellitus with other specified complication, unspecified whether skilled nursing insulin use E11.69 ; Morbid (severe) obesity due to excess calories E66.01 ; Portal hypertension K76.6 and Cardiomyopathy, unspecified type I42.9 Assessments Encounter Date Diagnosis (ICD Code) Assessment Notes Treatment Notes Treatment Clinical Notes Section Notes 07/30/2024 Adult general medical examination (ICD-10 - Z00.00) Patient instructed to return to office Annually for Annual Wellness Visits to include annual screenings of Pain assessment, Functional Ability assessment, Cognitive Ability assessment, Fall Risk assessment, Depression screening and Bladder control screening. 07/30/2024 Dyspepsia (ICD-10 - R10.13) 07/30/2024 Depression with anxiety (ICD-10 - F41.8) 07/30/2024 Congestive heart failure, unspecified congestive heart failure chronicity, unspecified congestive heart failure type (ICD-10 - I50.9) Follows with cardiology. 07/30/2024 Essential hypertension (ICD-10 - I10) 07/30/2024 Renal insufficiency (ICD-10 - N28.9) 07/30/2024 Vitamin B12 deficiency (ICD-10 - E53.8) 07/30/2024 Type 2 diabetes mellitus without complication, without long-term current use of insulin (ICD-10 - E11.9) 07/30/2024 Acquired hypothyroidism (ICD-10 - E03.9) 07/30/2024 Iron deficiency (ICD-10 - E61.1) 07/30/2024 Screening mammogram, encounter for (ICD-10 - Z12.31) 07/30/2024 Hepatic cirrhosis, unspecified hepatic cirrhosis type, unspecified whether ascites present (ICD-10 - K74.60) 07/30/2024 Atrial fibrillation with RVR (ICD-10 - I48.91) 07/30/2024 Anemia, unspecified type (ICD-10 - D64.9) 07/30/2024 Mixed hyperlipidemia (ICD-10 - E78.2) 07/30/2024 Type 2 diabetes mellitus with other specified complication, unspecified whether skilled nursing insulin use (ICD-10 - E11.69) 07/30/2024 Morbid (severe) obesity due to excess calories (ICD-10 - E66.01) 07/30/2024 Portal hypertension (ICD-10 - K76.6) 07/30/2024 Cardiomyopathy, unspecified type (ICD-10 - I42.9) Plan Of Treatment Medication Medication Name Sig Start Date Stop Date Notes Desvenlafaxine ER 50 MG 1 tablet Orally Once a day; Duration: 30 days Treatment Notes Assessment Notes Adult general medical examination Patien t instructed to return to office Annually for Annual Wellness Visits to include annual screenings of Pain assessment, Functional Ability assessment, Cognitive Ability assessment, Fall Risk assessment, Depression screening and Bladder control screening. Congestive heart failure, un specified congestive heart failure chronicity, unspecified congestive heart failure type Follows with cardiology. Pending Test Test Name Order Date Mammogram 07/30/2024 Referrals Referral Date Details 07/30/2024 07/30/2024 Next Appt Details Follow Up: As directed by MD , Reason: Progress Notes * CURRENT, REBECCADOB:[birth year] (68 yo F)Acc No.[id number]:07/30/2024 Annual Wellness Visit Patient: JEFF MEANSECCA Provider: BURAK Schrader :1955 A ge:68 Y S ex:Female Date:07/30/2024 Address:[address] [place] [address] [facility] [id number] Pcp:Marciano Ortiz Subjective: * Chief Complaints: * 1 . Checkup with Annual Wellness. 2. Due for diabetic eye exam. * HPI: H PI: Patient is here today for a scheduled check up, a Medicare Annual Wellness Visit. P sychology: Anxiety P t would like to see about getting a refill of Desvenlafaxine. * ROS: D ERMATOLOGY: no R margot. n o H thompson. G ASTROENTEROLOGY: no N ausea. n o V omiting. U ROLOGY: no D ifficulty urinating. n o B lood in urine. * Medical History: C ongestive Heart Failure, Dx: 2000 - Dr. Escalante [employer], Hypertension, Hyperlipidemia, Type 2 Diabetes, Hypothyroidism, Depression, Irritable Bowel Syndrome with Diarrhea, Osteoarthritis, knees, Asthma/COPD, Allergic Rhinitis, Low Back Pain, Atrial fibrillation, Dx: 2018, Cirrhosis, Ascities, Pacemaker/defibrillator. * Surgical History: B ilateral Tubal Ligation 1990, Cholecystectomy 1994, Heart Cath - [facility] - Dr. Escalante 03/2015, Rt Ovarian Cyst removed 11/2016, Esophageal dilation , pacemaker-defibrillator 11/2023. * Hospitalization/Major Diagno stic Procedure: O varian Cyst Removal- [facility] 11/2016. * Family History: F ather: , diagnosed with Hypertension, family history unknown . M other: 92 yrs, diagnosed with Hypertension, Heart Disease. S iblings: alive, diagnosed with Cancer, Diabetes, Heart Disease. C hildren: alive. P aternal Grand Father: family history unknown .?Paternal Grand Mother: family history unknown . M aternal Grand Mother: diagnosed with Hypertension, Stroke, Heart Disease. M aternal aunt: diagnosed with Cancer. 2 [...] tablet Orally Once a day , Taking Montelukast Sodium 10 mg Tablet TAKE ONE TABLET BY MOUTH EVERY DAY , Taking Metoprolol Succinate ER 25 MG Tablet Extended Release 24 Hour 1 tablet Orally Once a day , Taking Jardiance 10 MG Tablet 1 tablet Orally Once a day , Taking Furosemide 40 MG Tablet 1/2 tab Orally Once a day , Taking Spironolactone 50 MG Tablet 1 tablet Orally Once a day , Taking Albuterol Sulfate (2.5 MG/3ML) 0.083% Nebulization Solution 3 mL as needed Inhalation every 6 hrs , Taking Xarelto 15 MG Tablet 1 tablet with food Orally once a day , Taking Tresiba FlexTouch 200 UNIT/ML Solution Pen-injector 60 units Subcutaneous once daily , Taking Entresto 24-26 MG Tablet TAKE ONE TABLET BY MOUTH TWICE DAILY , Taking Albuterol Sulfate HFA 108 (90 Base) MCG/ACT Aerosol Solution inhale 1 TO 2 puffs BY MOUTH FOUR TIMES DAILY NEEDED - SHAKE WELL BEFORE USE- , Taking Ozempic (0.25 or 0.5 MG/DOSE) 2 MG/3ML Solution Pen- injector 0.5 mg Subcutaneous once weekly , Taking Rosuvastatin Calcium 10 mg Tablet TAKE ONE TABLET BY MOUTH EVERY DAY AT BEDTIME , Taking Levothyroxine Sodium 137 mcg Tablet TAKE ONE TABLET BY MOUTH EVERY MORNING ON AN EMPTY STOMACH , Taking FreeStyle Margaret 3 Plus Sensor - Miscellaneous change every 15 days , Discontinued Cefdinir 300 MG Capsule 1 cap(s) Orally Two times a day , Discontinued Benzonatate 200 MG Capsule 1 capsule as needed Orally Three times a day, prn , Medication List reviewed and reconciled with the patient * Allergies: A leve, Tetracycline, Polymyxin B - Onset Date 02/06/2018. Objective: * Vitals: W t: 223, Temp: 98.1, BP: 100/60, HR: 70, Nurse: MAGGIE, Ht: 62, BMI:40.78. * Examination: G eneral Examination: General Appearance: N AD. H EENT: u nremarkable.?Oral cavity: n o lesions, mucosa moist and WNL, no erythema. N olivia: s upple, no lymphadenopathy. C hest: n ormal shape and expansion. H eart: R SR. L ungs: c lear to auscultation. A bdomen: b owel sounds present, soft and nontender, no organomegaly or masses, no guarding or rigidity. N eurologic Exam: I ntact, gait normal. S kin: n ormal, no rash. P eripheral pulses: n ormal (2+) bilaterally. E xtremities: t race leg edema bilaterally. * Physical Examination: G ENERAL: Pain Assessment: P ain level:5 , on a scale of 0-10 (with 10 being extreme pain). F unctional Status Assessment: P atient response to question of how often physical health interferes with daily activities: Frequently. Able to perform ADLs-including meal preparation, grocery shopping, housework, laundry, taking medications or handling finances. Cognitive Status: alert and oriented. Ambulation Status: Fully ambulatory. F all Risk Assessment: I ndependant in ambulation, adequate lighting in home. Patient has fallen or had trouble walking within the past 12 months. D epression Screening: D enies depressed mood or anxiety. Describes emotional health as: calm/peaceful, positive/upbeat. B ladder Control Screening: D saeedies problems. Assessment: * Assessment: 1. A dult general medical examination - Z00.00 (Primary) 2 . D yspepsia - R10.13 3 . D epression with anxiety - F41.8 4 . C ongestive heart failure, unspecified congestive heart failure chronicity, unspecified congestive heart failure type - I50.9 5 . E ssential hypertension - I10 6 . R enal insufficiency - N28.9 7 . V itamin B12 deficiency - E53.8 8 . T ype 2 diabetes mellitus without complication, without long-term current use of insulin - E11.9 9. A cquired hypothyroidism - E03.9 1 0. I renata deficiency - E61.1 1 1. S creening mammogram, encounter for - Z12.31 1 2. H epatic cirrhosis, unspecified hepatic cirrhosis type, unspecified whether ascites present - K74.60 13. A trial fibrillation with RVR - I48.91 1 4. A nemia, unspecified type - D64.9 1 5. M ixed hyperlipidemia - E78.2 1 6.?Type 2 diabetes mellitus with other specified complication, unspecified whether intermediate frame tender insulin use - E11.69 1 7. M orbid (severe) obesity due to excess calories - E66.01? 18. P ortal hypertension - K76.6 1 9. C ardiomyopathy, unspecified type - I42.9 Plan: * Treatment: 2. D yspepsia Referral To:Gastroenterology Reason: 3. D epression with anxiety Refill Desvenlafaxine ER Tablet Extended Release 24 Hour, 50 MG, 1 tablet, Orally, Once a day, 30 days, 30, Refills 11. 4. C ongestive heart failure, unspecified congestive heart failure chronicity, unspecified congestive heart failure type Notes: Follows with cardiology. 5. E ssential hypertension L AB: CBC Venipuncture (in house) (Collection Date & Time - 07/30/2024) N ormal Value Reference Range w bc 11.4 3.5 - 10 * l ymph 12.7 15 - 50 * m id 4.7 2 - 15 * g ran 82.6 35 - 80 * r bc 4.49 3.5 - 5.5 * h gb 14.0 11.5 - 16.5 * h ct 43.5 35 - 55 * m cv 96.7 75 - 100 * m ch 31.1 25 - 35 * m chc 32.2 31 - 38 * p latlet 231 100 - 400 * Amparo Valenzuela 07/30/2024 04:1 6:27 PM EDT > Padmini Last 08/06/2024 02:19:19 PM EDT > See phone encounter 6.?Vitamin B12 deficiency?LAB: P-Vitamin B12 (Collection Date & Time - 07/30/2024 01:45 PM)?1970* Value Reference Range V itamin B12 1970 H 232-1245 - pg/mL * Latosha Huynh 07/30/2024 0 2:39:53 PM EDT >purple Padmini Last 08/06/2024 02:19:19 PM EDT > See phone encounter 7.?Type 2 diabetes mellitus without complication, without long-term current use of insulin?LAB: P-Comprehensive Metabolic Panel (CMP) (Collection Date & Time - 07/30/2024 01:45 PM)?Chl 95, Glu 148, BUN 27, Creat 1.31, eGFR 44, A/G 1.1* Value Reference Range A /G Ratio 1.1 L 1.1-2.5 - * A lbumin 3.9 3.5-5.3 - g/dL * A lkaline Phosphatase 108 35-121 - IU/L * A LT (SGPT) 12 <5-47 - IU/L * A ST (SGOT) 15 <5-40 - IU/L * B ilirubin, Total 0.6 <0.2-1.2 - mg/dL * B UN 27 H 8-23 - mg/dL * C alcium 9.4 8.6-10.4 - mg/dL * C hloride 95 L 97-108 - mmol/L * C O2 28 22-32 - mmol/L * C reatinine 1.31 H 0.50-1.00 - mg/dL * G lucose 148 H 65-99 - mg/dL * P otassium 4.3 3.5-5.3 - mmol/L * S odium 135 135-145 - mmol/L * P rotein 7.6 6.0-8.3 - g/dL * e GFR by Creatinine 44 L >59 - mL/min/1.73m2 * Latosha Huynh 07/30/2024 0 2:39:53 PM EDT >Padmini Bose 08/06/2024 02:19:19 PM EDT > See phone encounter ?LAB: P-Microalbumin/Creatinine, Random Urine Sample (Collection Date & Time - 07/30/2024 01:45 PM)?Normal* Value Reference Range A lbumin/Creatinine Ratio, Urine 18 0-30 - ug /mg * C reatinine, Urine 67.5 - mg/dL * M icroalbumin, Urine, Random 1.2 - mg/dL * Latosha Huynh 07/30/2024 0 2:39:53 PM EDT >Padmini Bose 08/06/2024 02:19:19 PM EDT > See phone encounter 8.?Iron deficiency?LAB: P-Ferritin (Collection Date & Time - 07/30/2024 01:45 PM)?Normal* Value Reference Range F erritin 159.0 13.0-301.0 - ng/mL * Latosha Huynh 07/30/2024 0 2:39:53 PM EDT >rosemarie Last Padmini 08/06/2024 02:19:19 PM EDT > See phone encounter ?LAB: P-Iron (Collection Date & Time - 07/30/2024 01:45 PM)?Normal* Value Reference Range I renata 43 37-145 - ug/dL * Latosha Huynh 07/30/2024 0 2:39:53 PM EDT >rosemarie Last Padmini 08/06/2024 02:19:19 PM EDT > See phone encounter 9.?Screening mammogram, encounter for?Imaging: Mammogram* Adela Chiu 08/05/2024 04:3 2:20 PM EDT > faxed to [facility] Scheduling * Procedure Codes: G 0439 ANNUAL WELLNESS VST; PPS SUBSQT VST, G2211 Complex e/m visit add on, 1090F PRES/ABSN URINE INCON ASSESS, 3288F FALL RISK ASSESSMENT DOCD, 1170F FXNL STATUS ASSESSED, 1159F MED LIST DOCD IN RCRD, 1003F LEVEL OF ACTIVITY ASSESS, 1036F TOBACCO NON-USER, 3017F COLORECTAL CA SCREEN DOC REV, 3051F HG A1C>EQUAL 7.0%<8.0%, 32280 CBC WITH AUTO DIFF, 1125F AMNT PAIN NOTED PAIN PRSNT, G8950 PREHTN/HTN BP DOC INDCD F/U DOC, G8752 MOST RECENT SYSTOLIC BP < 140MM HG, G8754 MOST RECENT DIASTOLIC BP < 90MM HG, G8431 CLIN DEPRESSION SCREEN DOC positive * Preventive Medicine: Counseling: E motional health: P atient encouraged to try connecting with family or friends to boost mood. B ladder control: M ethods of controlling or managing leakage of urine discussed. E xercise: P atient advised to start, increase or maintain level of exercise/physical activity. I njury prevention: F all prevention discussed. Discussed need for cane/walker. Potential trip hazards discussed. Immunizations: P neumococcal u p to date. I nfluenza u p to date, recommended seasonally. Screening / Special Tests: M ammogram R ecent history: 07/19/2023, negative, recommended today. C olonoscopy R ecent history: 11/02/2019, Dr. Marcelo, polyps, diverticulosis, hemorrhoids, repeat 7-10 years. B one mineral Density R ecent history: 07/19/2023, normal.?Diabetic Retinal Eye Exam R ecent history:, recommended today. N ephrology History R ecent history: , GFR and urine M/A ordered today. * Follow Up: A s directed by MD * Images: Billing Information: * Visit Code: 58584 Office Visit, Est Pt., Level 3. Modifiers: 25 * Procedure Codes: G0439 ANNUAL WELLNESS VST; PPS SUBSQT VST. G2211 Complex e/m visit add on. 1090F PRES/ABSN URINE INCON ASSESS. 3288F FALL RISK ASSESSMENT DOCD. 1170F FXNL STATUS ASSESSED. 1159F MED LIST DOCD IN RCRD. 1003F LEVEL OF ACTIVITY ASSESS. 1036F TOBACCO NON-USER. 3017F COLORECTAL CA SCREEN DOC REV. 3051F HG A1C>EQUAL 7.0%<8.0%. 57781 CBC WITH AUTO DIFF. 1125F AMNT PAIN NOTED PAIN PRSNT. G8950 PREHTN/HTN BP DOC INDCD F/U DOC. G8752 MOST RECENT SYSTOLIC BP < 140MM HG. G8754 MOST RECENT DIASTOLIC BP < 90MM HG. G8431 CLIN DEPRESSION SCREEN DOC positive. * Electronic signature of BURAK Page on 08/13/2024 at 03:36 PM EDT Sign off status: Pending * Provider: BURAK Schrader Date: 0 07/30/2024 Generated for Ellen ledezma/Melania/eTransmalexa on: 0 08/13/2024 03:36 PM EDT History and Physical Notes * HPI (History of Present Illness) Category Sub-Category Detail Notes Category Not es Psychology Anxiety Pt would like to see about getting a refill of Desvenlafaxine HPI Patient is here today for a sche duled check up, a Medicare Annual Wellness Visit Physical Examination Category Sub-Category Detail Notes Section Note s GENERAL Pain Assessment: Pain level:5 , on a scale of 0-10 (with 10 being extreme pain) Functional Status Assessment: Patient re sponse to question of how often physical health interferes with daily activities: Frequently. Able to perform ADLs-including meal preparation, grocery shopping, housework, laundry, taking medications or handling finances.Cognitive Status: alert and oriented.Ambulation Status: Fully ambulatory Fall Risk Assessment: Independant in amb ulation, adequate lighting in home. Patient has fallen or had trouble walking within the past 12 months Depression Screening: Denies depressed m ood or anxiety. Describes emotional health as: calm/peaceful, positive/upbeat Bladder Control Screening: Denies proble ms Examination Category Sub-Category Detail Notes Category Not es General Examination HEENT: unremarkable Heart: RSR Lungs: clear to auscultatio n Abdomen: bowel sounds present , soft and nontender, no organomegaly or masses, no guarding or rigidity Extremities: trace leg edema bila terally General Appearance: NAD Skin: normal, no rash Neurologic Exam: Intact, gait normal Neck: supple, no lymphaden opathy Oral cavity: no lesions, mucosa m oist and WNL, no erythema Peripheral pulses: normal (2+) bilatera lly Chest: normal shape and exp ansion Consultation Request Notes Referral Date Referring Provider Referred Provider Not es 07/30/2024 Latosha Huynh ,
--- NOTE | 2024-08-13 15:35 | MM_ITS ---
PROCEDURE INFORMATION: Exam: MG Bilateral Screening 3D Mammography Exam date and time: 08/13/2024 3:42 PM Age: 68 years old Clinical indication: Screening examination. A maternal aunt had breast cancer. TECHNIQUE: Imaging protocol: Bilateral Screening tomosynthesis and 2D mammography including computer-aided detection (CAD) when performed. COMPARISON: 1. MG MM DIG SCREENING MAMM BI W/CAD 07/19/2023 8:17 AM 2. MG MM DIG SCREENING MAMM BI W/CAD 10/07/2019 8:26 AM FINDINGS: MAMMOGRAPHY: Breast composition: There are scattered areas of fibroglandular density. Mass: None. Architectural distortion: None. Calcifications: No suspicious calcifications. Asymmetric density: None. Skin thickening: None. Axillary adenopathy: None. Other findings: Pacemaker in the left axilla, limits evaluation and accentuates the importance of clinical breast exam. IMPRESSION: No mammographic evidence of malignancy. Annual screening is recommended unless otherwise clinically indicated. ASSESSMENT: BI-RADS Category 1: Negative.
--- OUTSIDE RECORDS SUMMARY | 2024-08-13 15:36 | XMS_ITS | Referral Summary ---
Author Organization [facility] Address [address] [place] [address] Care Team Providers Care Healthcare Associate Name Role Phone Marciano Ortiz MD Primary Care Provider + [phone] Allergies Active Allergy Reactions Criticality Noted Date Comments Naproxen Sodium Other (See Comments) 11/15/2023 Facial swelling, entire body was swollen Tetracycline Swelling High 11/15/2023 Allergic to Oxytetracycline , entire body was swollen, she blacked out Medications montelukast (SINGULAIR) 10 mg tablet Take 1 tablet (10 mg total) by mouth daily. 10/29/19 24 Active ondansetron (ZOFRAN-ODT) 4 MG disintegrating tablet Take 1 tablet (4 mg total) by mouth every 6 (six) hours as needed. 08/29/19 24 Active potassium chloride (MICRO-K) 10 mEq CR capsule Take 1 capsule (10 mEq total) by mouth 2 (two) times daily. 10/15/19 24 Active rosuvastatin (CRESTOR) 10 MG tablet Take 1 tablet (10 mg total) by mouth nightly. 08/27/19 24 Active metoprolol succinate (TOPROL-XL) 25 MG 24 hr tablet Take 1 tablet (25 mg total) by mouth nightly. 09/24/19 24 Active Victoza 3-Atif 0.6 mg/0.1 mL (18 mg/3 mL) syringe Inject 0.3 mLs (1.8 mg total) subcutaneously daily. 10/23/19 24 Active levothyroxine (SYNTHROID, LEVOTHROID) 137 MCG tablet Take 1 tablet (137 mcg total) by mouth every morning. 10/29/19 Active furosemide (LASIX) 20 MG tablet Take 1 tablet (20 mg total) by mouth daily. 10/29/19 Active fluticasone propion-salmeteroL (ADVAIR) 250-50 mcg/dose diskus inhaler Inhale 1 puff by mouth via inhaler 2 (two) times daily. 10/15/19 Active Jardiance 10 mg tablet Take 1 tablet (10 mg total) by mouth daily. 10/29/19 Active desvenlafaxine succinate (PRISTIQ) 100 MG 24 hr tablet Take 1 tablet (100 mg total) by mouth daily. 08/29/19 Active albuterol 90 mcg/actuation inhaler Inhale 1-2 puffs by mouth via inhaler every 6 (six) hours as needed. 10/29/19 Active triamcinolone (KENALOG) 0.1 % topical cream Apply 1.5 g topically 3 (three) times daily. Active insulin degludec 200 unit/mL (3 mL) inpn Inject 60 Units subcutaneously daily. Active Active Problems Problem Noted Date Diagnosed Date GI bleed 11/17/2023 Upper GI bleed 11/15/2023 Melena 11/15/2023 GIB (gastrointestinal bleeding) 11/15/2023 Social History Tobacco Use Types Packs/Day Years Used Date Smoking Tobacco: Never Smokeless Tobacco: Never Tobacco Cessation:Counseling Given: No Alcohol Use Standard Drinks/Week Comments Never 0 (1 standard drink = 0.6 oz pur e alcohol) Utilities Answer Date Recorded In the past 12 months, has t he [employer], gas, oil, or water [employer] threatened to shut off services in your home? No 11/15/2023 Interpersonal Safety Answer Date Record ed How often does anyone, imelda cyr family and friends, physically hurt you? Never 11/15/2023 How often does anyone, imelda cry family and friends, insult or talk down to you? Never 11/15/2023 How often does anyone, imelda cyr family and friends, threaten you with harm? Never 11/15/2023 How often does anyone, imelda cyr family and friends, scream or curse at you? Never 11/15/2023 Housing Stability Answer Date Recorded What is your living situation today? I have a [facility] [place] place to live 11/15/[address] you li ve. Do you have problems with any of the following? None of the above 11/15/2023 Food Insecurity Answer Date Recorded Within the past 12 months, y ou worried that your food would run out before you got money to buy more. Never true 11/15/2023 Within the past 12 months, t he food you bought just didn't last and you didn't have money to get more. Never true 11/15/2023 Transportation Needs Answer Date Record ed In the past 12 months, has l ack of reliable transportation kept you from medical appointments, meetings, work or from getting things needed for daily living? No 11/15/2023 Financial Resource Strain Answer Date R ecorded How hard is it for you to pa y for the very basics like food, housing, medical care, and heating? Would you say it is: Somewhat hard 11/15/2023 Employment Answer Date Recorded Do you want help finding or keeping work or a job? I do not need or want help 11/15/2023 Family and Community Support Answer Juanjo e Recorded If for any reason you need h elp with day-to-day activities such as bathing, preparing meals, shopping, managing finances, etc., do you get the help you need? I don't need any help 11/15/2023 Feeling Lonely or Isolated 0 11/14 Educational Attainment Answer Date Paxton rded Do you speak a language other than Belarusian at [facility]? No 11/15/2023 Do you want help with school or training? For example, starting or completing job training or getting a high school diploma, GED or equivalent. No 11/15/2023 Physical Activity Answer Date Recorded Number of minutes of exercise per week 10 11/15/2023 Alcohol Use Answer Date Recorded 5 or More Drinks Per Day Past 12 Months 0 01/04/2024 Depression Answer Date Recorded Calculation of above two rows 0 Stress Answer Date Recorded Stress means a situation in which a person feels tense, restless, nervous, or anxious, or is unable to sleep at night because his or her mind is troubled all the time. Do you feel this kind of stress these days? Not at all 11/15/2023 Disabilities Answer Date Recorded Because of a physical, menta l, or emotional condition, do you have serious difficulty concentrating, remembering, or making decisions? (5 years or older) No 11/15/2023 Because of a physical, menta l, or emotional condition, do you have difficulty doing errands alone such as visiting a doctor's office or shopping? (15 years or older) No 11/15/2023 Substance Use Answer Date Recorded How many times in the past y ear have you used prescription drugs for non-medical reasons? Never 11/15/2023 How many times in the past year have you used [place] legal drugs? Never 11/15/2023 Comments Unknown Sex and Gender Information Value Date Recorded Sex Assigned at Not on file Legal Sex Female 4:26 PM CDT Gender Identity Not on file Sexual Orientation Not on file Last Filed Vital Signs Vital Sign Reading Time Taken Comments Blood Pressure 123/78 11/25/2023 11:10 AM EDT Pulse 100 11/25/2023 11:10 AM EDT Temperature 36.4 C (97.6 F) 11/25/2023 8:20 AM EDT Respiratory Rate 20 11/25/2023 8:20 AM EDT Oxygen Saturation 96% 11/25/2023 9:28 AM EDT Inhaled Oxygen Concentration 28% 11/22/2023 4 :47 AM EDT Weight 100.7 kg (222 lb) 11/21/2023 9:59 AM EDT Height 157.5 cm (5' 2 ) 11/15/2023 7:50 PM EDT Body Mass Index 40.6 11/15/2023 7:50 PM EDT Plan of Treatment Not on file Procedures Procedure Name Priority Date/Time Associated Diagnosis Comments HEPATITIS PANEL, ACUTE Routine 11/15/2023 8:57 PM EDT from Last 3 Months or Most Recently Relevant to Health Maintenance Results * Hepatitis panel, acute (11/15/2023 8:57 PM EDT) Hep A IgM Nonreactive Nonreactive, Equivocal 11/15/2023 10:25 PM EDT [facility] Hep B C IgM Nonreactive Nonreactive 11/15/2023 10:25 PM EDT [facility] Hepatitis B surface antigen Nonreactive Nonreactive, Equivocal 11/15/2023 10:25 PM EDT [facility] Hepatitis C Ab Nonreactive Nonreactive, Equivocal 11/15/2023 10:25 PM EDT [facility] Blood Venipuncture / Unknown 11/15/2023 8:57 PM EDT 11/15/2023 9:04 PM EDT [facility] - 11/15/2023 10:25 PM EDT Hepatitis A Antibody IgM: (a) A negative test result does not exclude the possibility of exposure to the hepatitis A virus. (b) This test can be used to determine if a patient has or recently had an acute or asymptomatic hepatitis A infection. (c) A reactive result does not exclude co-infection by another hepatitis virus. Biotin supplements can cause clinically significant incorrect lab results. The FDA has seen an increase in the number of adverse events related to biotin interference with lab tests. Hepatitis B Core Antibody IgM: A reactive anti-HBc IgM result does not exclude co-infection by another hepatitis virus. Biotin supplements can cause clinically significant incorrect lab results. The FDA has seen an increase in the number of adverse events related to biotin interference with lab tests. Hepatitis B Surface Antibody Qual: This test does not differentiate between a vaccine induced immune response and an immune response induced by infection with HBV. Individuals that have received blood component therapies, (e.g. whole blood, plasma, immunoglobulin) administered during the previous 3 to 6 months may have a false reactive anti HBs due to passive transfer of anti HBs. A positive anti HBs result does not exclude co infection by another hepatitis virus. Biotin supplements can cause clinically significant incorrect lab results. The FDA has seen an increase in the number of adverse events related to biotin interference with lab tests. Hepatitis B Surface Antigen: This test may not detect all HBV mutants. If acute or chronic HBV infection is suspected and this test is non-reactive other HBV markers should be tested. Biotin supplements can cause clinically significant incorrect lab results. The FDA has seen an increase in the number of adverse events related to biotin interference with lab tests. Hepatitis C Antibody: A negative test result does not exclude the possibility of exposure to the hepatitis C virus and a reactive result does not exclude co-infection by another hepatitis virus. Biotin supplements can cause clinically significant incorrect lab results. The FDA has seen an increase in the number of adverse events related to biotin interference with lab tests. 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 -If no pulse or not breathing attempt CPR/CODE. -Call Rapid Response if patient is in distress. Healthcare Agents on File Name Relationship [facility] Agent [facility] Eloisa Gale Healthcare Decision-Maker Mercedezmesfin Villarmiguelina Sister First Alternate Healthcare Decision-Maker Care Teams Healthcare Associate Relationship Specialty Start Date End Date Marciano Ortiz MD [address] [place] [phone] PCP - General Family Medicine 11/15/23
--- OUTSIDE RECORDS SUMMARY | 2024-08-13 15:36 | XMS_ITS | Clinical Summary ---
Author Organization [facility] [employer] Address [address] [place] [address] Care Team Providers Care Outside Plant Supervisor Name Role Phone Marciano Ortiz MD Primary Care Provider + [phone] Allergies Active Allergy Reactions Criticality Noted Date [...] the past 12 months, has t he [employer], gas, oil, or water [employer] threatened to shut off services in your home? No 11/15/2023 Interpersonal Safety Answer Date Record ed How often does anyone, imelda cyr family and friends, physically hurt you? Never 11/15/2023 How often does anyone, imelda cyr family and friends, insult or talk down [...] Do you speak a language other than Croatian at [facility]? No 11/15/2023 Do you want help with [...] 11/15/2023 7:50 PM EDT Plan of Treatment Health Maintenance Due Date Last Done Comments CT Colonography 1955 Colonoscopy 1955 Colorectal Cancer Screening 1955 DXA SCAN 1955 FOBT/FIT 1956 Fit-DNA (Cologuard) 1955 Sigmoidoscopy 1955 Depression Screening (12+) 1968 Breast Cancer Screening 1996 Shingles Vaccine (Zoster) (1 of 2) 2006 Respiratory Syncytial Virus (RSV) Adult or (1 - Risk 60-74 years 1-dose series) 2016 COVID-19 VACCINE (2 - season) 10/20/202312/2020 Falls Risk Screening 02/19/2024 Medicare Initial AWV G0438 02/20/2024 Pneumococcal 50+ years (2 of 2 - PCV) 03/20/2024 03/20/2023, 09/30/2019, 01/15/2006 Influenza Vaccine (Season Ended) 2024 Tobacco Cessation Counseling and Screening (12+) 11/14/2024 11/15/2023 DTAP/TDAP/TD VACCINES (3 - T d or Tdap) 11/25/2024 11/25/2014, 04/20/1996 Hepatitis C Screening Completed 11/15/2023 Procedures Procedure Name Priority Date/Time Associated Diagnosis Comments HEPATITIS PANEL, ACUTE Routine 11/15/2023 8:57 PM EDT from Last 3 Months or Most Recently Relevant to Health Maintenance Results * Hepatitis panel, acute (11/15/2023 8:57 PM EDT) Hep A IgM Nonreactive Nonreactive, Equivocal 11/15/2023 10:25 PM EDT [facility] Hep B C IgM Nonreactive Nonreactive 11/15/2023 10:25 PM EDT [facility] Hepatitis B surface antigen Nonreactive Nonreactive, Equivocal 11/15/2023 10:25 PM EDT [facility] Hepatitis C Ab Nonreactive Nonreactive, Equivocal 11/15/2023 10:25 PM EDT [facility] Blood Venipuncture / Unknown 11/15/2023 8:57 PM EDT 11/15/2023 9:04 PM EDT Narrative [facility] - 11/15/2023 10:25 PM EDT Hepatitis [...] related to biotin interference with lab tests. 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
--- OUTSIDE RECORDS SUMMARY | 2024-08-13 15:36 | XMS_ITS | Patient Health Record ---
Author Organization [facility] Address [address] [facility] [address] HARISH Pedroza [id number] Care Team Providers Care Vice President Of Recruiting Name Role Phone RosstonBernice keitaian Primary Care Provider Latosha Huynh Unavailable [phone] Allergies Allergen (clinical drug ingredient) Drug/Non Drug [...] 1.1 Performing Lab: Notes/Report: Test performed by [facility], [place] [address] [place] [address] , [place] [address] Babak Giordano MD, Second Cutter CLIA: [id number] Sodium 136 135-145 mmol/L Potassium 5.1 3.5-5.3 [...] Interpretation:neg Performing Lab: Notes/Report: neg Result: neg P-Iron Reviewed date:08/06/2024 02:19:27 PM Interpretation:Normal Performing Lab: Notes/Report: Test performed by [facility] [address] [place] [address] , [place] [address] Babak Giordano MD, Second Cutter CLIA: [id number] Iron 43 37-145 ug/dL P-Vitamin B12 Reviewed date:08/06/2024 02:19:26 PM Interpretation:1970 Performing Lab: Notes/Report: Test performed by [facility] [address] [place] [address] , [facility] [place] [address] Babak Giordano MD, Second Cutter CLIA: [id number] Vitamin B12 7513 938-3302 pg/mL P-Ferritin Reviewed date:08/06/2024 02:19:27 PM Interpretation:Normal Performing Lab: Notes/Report: Test performed by [facility] [address] [place] [address] , [address], [place] [address] Babak Giordano MD, Second Cutter CLIA: [id number] Ferritin 159.0 13.0-301.0 ng/mL P-Microalbumin/Creatinine, R andom Urine Sample Reviewed date:08/06/2024 02:19:27 PM Interpretation:Normal Performing Lab: Notes/Report: Test performed by [facility] [address] [place] [address] , [place] [address] Babak Giordano MD, Second Cutter CLIA: [id number] Albumin/Creatinine Ratio, Urine 18 0-30 ug/mg Microalbumin, Urine, Random 1.2 Creatinine, Urine 67.5 CBC Venipuncture (in house) Reviewed date:04/30/2024 04:24:39 PM Interpretation: Performing Lab: Notes/Report: wbc 6.8 3.5 - 10 lymph 13.7% 15 - 50 mid 4.8% 2 - 15 gran 81.5% 35 - 80 rbc 3.72 3.5 - 5.5 hgb 11.8 11.5 - 16.5 hct 34.9 35 - 55 mcv 93.7 75 - 100 mch 31.8 25 - 35 mchc 34.0 31 - 38 platlet 226 100 - 400 Glycohemoglobin A1c (in hous e) Reviewed date:05/01/2024 12:31:40 PM Interpretation: Performing Lab: Notes/Report: glycohemoglobin 7.4% 5 - 6.5 % P-BNP (Brain Natriuretic Pep tide) Reviewed date:05/24/2024 09:04:43 PM Interpretation: Performing Lab: Notes/Report: P-Comprehensive Metabolic Pa abhinav (CMP) Reviewed date:05/01/2024 12:31:40 PM Interpretation: Performing Lab: Notes/Report: Test performed by [facility] [address] [place] [address] , [address], [place] [address] Babak Giordano MD, Second Cutter CLIA: [id number] Sodium 128 135-145 mmol/L Potassium 4.4 3.5-5.3 mmol/L Chloride 90 97-108 mmol/L CO2 26 22-32 mmol/L Glucose 509 65-99 mg/dL ALERT VALUE Results were repeated and confirmed. BUN 48 8-23 mg/dL Creatinine 1.66 0.50-1.00 mg/dL Calcium 8.7 8.6-10.4 mg/dL eGFR by Creatinine 34 >59 mL/min/1.73m2 Protein 7.7 6.0-8.3 g/dL Albumin 3.9 3.5-5.3 g/dL Alkaline Phosphatase 104 35-121 IU/L ALT (SGPT) 11 <5-47 IU/L AST (SGOT) 11 <5-40 IU/L Bilirubin, Total 0.5 <0.2-1.2 mg/dL A/G Ratio 1.0 1.1-2.5 P-Lipid Panel Reviewed date:05/01/2024 12:31:40 PM Interpretation: Performing Lab: Notes/Report: Test performed by [facility] [address] [place] [address] , [address], [place] [address] Babak Giordano MD, Second Cutter CLIA: [id number] Cholesterol 167 <200 mg/dL Triglycerides 208 <150 mg/dL HDL Cholesterol 48 >39 mg/dL Cholesterol / HDL Ratio 3.48 0.00-4.44 Ratio Non-HDL Cholesterol 119 <130 mg/dL LDL Cholesterol (Calculation) 77 <130 mg/dL LDL Cholesterol Levels* Less than 100 mg/dL Optimal 100 to 129 mg/dL Near Optimal/ Above Optimal 130 to 159 mg/dL Borderline High 160 to 189 mg/dL High 190 mg/dL and above Very High * Categories as recommended by the 2004 ATPIII guidelines LDL/HDL Ratio 1.6 <3.3 Ratio LDL Cholesterol Patient History Test Date: 10/31/2022 LDL Results: 35 Units: mg/dL % Change: - Test Date: 01/31/2023 LDL Results: 51 Units: mg/dL % Change: +45% Test Date: 04/30/2024 LDL Results: 77 Units: mg/dL % Change: +50% P-TSH reflex to FT4 Reviewed date:05/01/2024 12:31:40 PM Interpretation: Performing Lab: Notes/Report: Test performed by [facility] [address] [place], [place] [address] [place] , [address], [place] [address] Babak Giordano MD, Second Cutter CLIA: [id number] TSH reflex to FT4 1.02 0.43-5.25 mU/L B-Type Natriuretic Peptide Reviewed date:05/01/2024 12:31:40 PM Interpretation: Performing Lab: Notes/Report: Test performed by [facility] [address] [place], [place] [address] , [address], [place] [address] Babak Giordano MD, Second Cutter CLIA: [id number] B-Type Natriuretic Peptide 532.0 <2.0-100.0 pg/ mL P-Comprehensive Metabolic Pa abhinav (CMP) Reviewed date:08/06/2024 02:19:27 PM Interpretation:Chl 95, Glu 148, BUN 27, Creat 1.31, eGFR 44, A/G 1.1 Performing Lab: Notes/Report: Test performed by [facility] [address] [place], [place] [address] , [place] [address] Babak Giordano MD, Second Cutter CLIA: [id number] Sodium 135 135-145 mmol/L Potassium 4.3 3.5-5.3 [...] 0.6 <0.2-1.2 mg/dL A/G Ratio 1.1 1.1-2.5 H-CBC Reviewed date:12/16/2023 08:35:12 AM Interpretation: Performing Lab: Notes/Report: WBC 5.3 4.8-10.8 K/mm3 RBC 3.49 4.20-5.40 M/mm3 HGB 9.6 12.2-16.2 g/dL HCT 31.4 37.0-47.0 % MCV 90.0 81-99 fl MCH 27.6 27.0-31.2 pg MCHC 30.7 31.8-35.4 g/dL RDW 24.9 11.5-17.5 % PLT 218 142-424 K/mm3 MPV 8.1 7.4-10.4 fl NE% 73.4 37.0-80.0 % LY% 15.9 10-50 % MO% 10.5 1.7-9.3 % EO% 0.2 0.1-12.0 % BA% 0.1 0.1-2.0 % NE# 3.9 1.8-7.8 K/mm3 LY# 0.8 0.7-4.5 K/mm3 MO# 0.6 0.1-1.0 K/mm3 EO# 0.0 0.0-0.4 K/mm3 BA# 0.0 0-0.2 K/mm3 H-BMP Reviewed date:12/16/2023 08:35:12 AM Interpretation: Performing Lab: Notes/Report: NA 138 136-145 mmol/L K 3.2 3.5-5.1 mmoL/L Delta: 2.6 on 12/15/23-0554 CL 96 98-107 mmol/L CO2 37 22.0-30.0 mmol/L GAP 8.2 5-15 mEq/L BUN 19 7-17 mg/dl CREATT 1.40 0.52-1.04 mg/dl CRCLE 29 50-200 mL/min GFRAA 45 >60 ML/MIN EGFR 38 >60 ml/min GLU 159 74-100 mg/dl CA 7.8 8.4-10.2 mg/dl H-COVIDPANEL Reviewed date:12/13/2023 02:42:13 PM Interpretation:Negative Performing Lab: Notes/Report: No Is this the 1st COVID test for the patient? Unknown Does the patient have COVID symptoms? Unknown Is the patient employed in healthcare? Unknown Is patient an [facility] employee? N Is patient currently hospitalized? Yes Is patient currently in ICU? Yes Date of Symptom onset Is patient a resident in a congregate care setting? No ADENOQIA Not Detected NotDetected CORONAHKU1 Not Detected NotDetected [id number] Not Detected NotDetected [id number] Not Detected NotDetected WARYDYW80 Not Detected NotDetected METAPNEUMO Not Detected NotDetected RHINOENTER Not Detected NotDetected INFLUAPCR Not Detected NotDetected FLUAH1 Not Detected NotDetected [id number] Not Detected NotDetected INFLUAH3 Not Detected NotDetected [...] Not Detected NotDetected MYCOPLASM Not Detected NotDetected H-CBC Reviewed date:12/16/2023 08:35:12 AM Interpretation: Performing Lab: Notes/Report: WBC 5.0 4.8-10.8 K/mm3 Delta: 7.1 on 12/12/23 RBC 3.52 4.20-5.40 M/mm3 HGB 9.5 12.2-16.2 g/dL HCT 31.8 37.0-47.0 % MCV 90.4 81-99 fl MCH 27.0 27.0-31.2 pg MCHC 29.8 31.8-35.4 g/dL RDW 25.5 11.5-17.5 % PLT 213 142-424 K/mm3 MPV 8.2 7.4-10.4 fl NE% 71.8 37.0-80.0 % LY% 18.1 10-50 % MO% 9.8 1.7-9.3 % EO% 0.1 0.1-12.0 % BA% 0.2 0.1-2.0 % NE# 3.6 1.8-7.8 K/mm3 LY# 0.9 0.7-4.5 K/mm3 MO# 0.5 0.1-1.0 K/mm3 EO# 0.0 0.0-0.4 K/mm3 BA# 0.0 0-0.2 K/mm3 CBC Venipuncture (in house) Reviewed date:08/06/2024 02:19:27 [...] - 38 platlet 231 100 - 400 P-Basic Metabolic Panel (BMP ) Reviewed date:07/15/2024 06:06:22 PM Interpretation: Performing Lab: Notes/Report: Test performed by [facility] [address] , [address], [place] [address] Babak Giordano MD, Second Cutter CLIA: [id number] Sodium 135 135-145 mmol/L Potassium 5.9 3.5-5.3 mmol/L Chloride 96 97-108 mmol/L CO2 29 22-32 mmol/L Glucose 179 65-99 mg/dL BUN 46 8-23 mg/dL Creatinine 1.63 0.50-1.00 mg/dL Calcium 9.5 8.6-10.4 mg/dL eGFR by Creatinine 34 >59 mL/min/1.73m2 CBC Fingerstick (in house) Reviewed date:02/20/2024 01:19:12 PM Interpretation: Performing Lab: Notes/Report: wbc 6.8 3.5 - 10 lym 17.6% 15 - 50 mid 4.5% 2 - 15 gran 77.9% 35 - 80 rbc 3.76 3.5 - 5.5 hgb 10.8 11.5 - 16.5 hct 33.4 35 - 55 mcv 88.9 75 - 100 mch 28.9 25 - 35 mchc 32.5 31 - 38 plat 141 100 - 400 P-TSH Reviewed date:01/23/2024 04:16:22 PM Interpretation:7 Performing Lab: Notes/Report: Test performed by [facility] [address] [place] [address] , [address], [place] [address] Babak Giordano MD, Second Cutter CLIA: [id number] TSH 7.00 0.43-5.25 mU/L P-Phosphorus Reviewed date:01/23/2024 04:16:22 PM Interpretation:Normal Performing Lab: Notes/Report: Test performed by [facility] [address] [place] [address] , [address], [place] [address] Babak Giordano MD, Second Cutter CLIA: [id number] Phosphorus 3.6 2.5-4.5 mg/dL P-Magnesium Reviewed date:01/23/2024 04:16:22 PM Interpretation:Normal Performing Lab: Notes/Report: Test performed by [facility] [address] [place] [address] , [place] [address] Babak Giordano MD, Second Cutter CLIA: [id number] Magnesium 2.0 1.6-2.4 mg/dL P-T4 Free (thyroxine) Reviewed date:01/23/2024 04:16:22 PM Interpretation:Normal Performing Lab: Notes/Report: Test performed by [facility] [address] [place] [address] , [facility] [place] [address] Babak Giordano MD, Second Cutter CLIA: [id number] Thyroxine Free (free T4) 1.20 0.86-1.76 ng/dL P-Basic Metabolic Panel (BMP ) Reviewed date:01/23/2024 04:16:22 PM Interpretation:chlor 96, glus 158, bun 29, Cr 1.4, gfr 41 Performing Lab: Notes/Report: Test performed by [facility] [address] [place] [address] , [facility] [place] [address] Babak Giordano MD, Second Cutter CLIA: [id number] Sodium 138 135-145 mmol/L Potassium 3.9 3.5-5.3 mmol/L Chloride 96 97-108 mmol/L CO2 30 22-32 mmol/L Glucose 158 65-99 mg/dL BUN 29 8-23 mg/dL Creatinine 1.40 0.50-1.00 mg/dL Calcium 9.2 8.6-10.4 mg/dL eGFR by Creatinine 41 >59 mL/min/1.73m2 CBC Venipuncture (in house) Reviewed date:01/23/2024 09:01:20 AM Interpretation: Performing Lab: Notes/Report: wbc 7.5 3.5 - 10 lymph 14.7% 15 - 50 mid 4.5% 2 - 15 gran 80.8% 35 - 80 rbc 4.10 3.5 - 5.5 hgb 11.3 11.5 - 16.5 hct 35.9 35 - 55 mcv 87.6 75 - 100 mch 27.6 25 - 35 mchc 31.5 31 - 38 platlet 204 100 - 400 P-Magnesium Reviewed date:12/26/2023 09:27:05 AM Interpretation:Normal Performing Lab: Notes/Report: Test performed by [facility] [address] [place] [address] , [place] [address] Babak Giordano MD, Second Cutter CLIA: [id number] Magnesium 1.9 1.6-2.4 mg/dL P-Comprehensive Metabolic Pa abhinav (CMP) Reviewed date:12/26/2023 09:27:05 AM Interpretation:Co2 33, creat 1.35, gfr 43, a/g 1.0 Performing Lab: Notes/Report: Test performed by [facility], [address] , [address], [place] [address] Babak Giordano MD, Second Cutter CLIA: [id number] Sodium 140 135-145 mmol/L Potassium 3.5 3.5-5.3 mmol/L Chloride 97 97-108 mmol/L CO2 33 22-32 mmol/L Glucose 85 65-99 mg/dL BUN 15 8-23 mg/dL Creatinine 1.35 0.50-1.00 mg/dL Calcium 9.1 8.6-10.4 mg/dL eGFR by Creatinine 43 >59 mL/min/1.73m2 Protein 6.9 6.0-8.3 g/dL Albumin 3.5 3.5-5.3 g/dL Alkaline Phosphatase 108 35-121 IU/L ALT (SGPT) 9 <5-47 IU/L AST (SGOT) 17 <5-40 IU/L Bilirubin, Total 0.6 <0.2-1.2 mg/dL A/G Ratio 1.0 1.1-2.5 CBC Venipuncture (in house) Reviewed date:12/25/2023 04:22:01 PM Interpretation: Performing Lab: Notes/Report: wbc 6.0 3.5 - 10 lymph 17.0% 15 - 50 mid 5.9% 2 - 15 gran 77.1% 35 - 80 rbc 3.82 3.5 - 5.5 hgb 10.4 11.5 - 16.5 hct 33.8 35 - 55 mcv 88.6 75 - 100 mch 27.3 25 - 35 mchc 38.0 31 - 38 platlet 195 100 - 400 CBC Venipuncture (in house) Reviewed date:11/27/2023 03:13:19 [...] 44 Performing Lab: Notes/Report: Test performed by [facility] [address] [place] [address] , [address], [place] [address] Babak Giordano MD, Second Cutter CLIA: [id number] Sodium 137 135-145 mmol/L Potassium 3.8 3.5-5.3 [...] Interpretation:Normal Performing Lab: Notes/Report: Test performed by [facility] [address] [place] [address] , [address], [place] [address] Babak Giordano MD, Second Cutter CLIA: [id number] Thyroxine Free (free T4) 1.16 0.86-1.76 ng/dL P-Magnesium Reviewed date:11/28/2023 03:57:16 PM Interpretation:Normal Performing Lab: Notes/Report: Test performed by [facility] [address] [place] [address] , [address], [place] [address] Babak Giordano MD, Second Cutter CLIA: [id number] Magnesium 1.7 1.6-2.4 mg/dL P-TSH reflex to FT4 Reviewed date:11/28/2023 03:57:16 PM Interpretation:18.40 Performing Lab: Notes/Report: Test performed by [facility] [address] [place] [address] [place] [address] Babak Giordano MD, Second Cutter CLIA: [id number] TSH reflex to FT4 18.40 0.43-5.25 mU/L proBrain Natriuretic Peptide Reviewed date:11/28/2023 03:57:16 PM Interpretation:[id number] Performing Lab: Notes/Report: Test performed by [facility] [address] [place] [address] , [place] [address] Babak Giordano MD, Second Cutter CLIA: [id number] proBrain Natriuretic Peptide 54160 <300 pg/mL Please note the updated reference range values which are stratified by age. Positive >900 pg/mL Indeterminate 300-900 pg/mL Negative <300 pg/mL H-CMP Reviewed date:12/16/2023 08:35:12 AM Interpretation: Performing Lab: Notes/Report: NA 138 136-145 mmol/L K 2.9 3.5-5.1 mmoL/L CRITICAL RESULT Results called and read back/verified to: BALA on 12/14/23 at 0711 By Marzena Burnette MLT CL 97 98-107 mmol/L CO2 33 22.0-30.0 mmol/L GAP 10.9 5-15 mEq/L BUN 20 7-17 mg/dl CREATT 1.40 0.52-1.04 mg/dl CRCLE 29 50-200 mL/min GFRAA 45 >60 ML/MIN EGFR 38 >60 ml/min GLU 122 74-100 mg/dl CA 8.1 8.4-10.2 mg/dl BILIT 1.0 0.2-1.3 mg/dl AST 24 14-36 U/L Delta: 38 on -2024 ALT 14 12-78 U/L TP 6.4 6.3-8.2 g/dl ALB 3.4 3.5-5.0 g/dl Delta: 3.8 on 12/12/23-2024 GLOB 3.0 1.3-3.2 g/dL AGRATIO 1.1 1.1-1.8 ALP 99 38-126 U/L H-CBC Reviewed date:12/16/2023 08:35:12 AM Interpretation: Performing Lab: Notes/Report: WBC 6.6 4.8-10.8 K/mm3 Delta: 5.0 on 12/14/23-556 RBC 3.53 4.20-5.40 M/mm3 HGB 9.5 12.2-16.2 g/dL HCT 31.5 37.0-47.0 % MCV 89.2 81-99 fl MCH 27.0 27.0-31.2 pg MCHC 30.2 31.8-35.4 g/dL RDW 25.1 11.5-17.5 % PLT 215 142-424 K/mm3 MPV 8.2 7.4-10.4 fl NE% 77.7 37.0-80.0 % LY% 12.8 10-50 % MO% 9.3 1.7-9.3 % EO% 0.1 0.1-12.0 % BA% 0.1 0.1-2.0 % NE# 5.2 1.8-7.8 K/mm3 LY# 0.9 0.7-4.5 K/mm3 MO# 0.6 0.1-1.0 K/mm3 EO# 0.0 0.0-0.4 K/mm3 BA# 0.0 0-0.2 K/mm3 H-BMP Reviewed date:12/16/2023 08:35:12 AM Interpretation: Performing Lab: Notes/Report: NA 137 136-145 mmol/L K 2.6 3.5-5.1 mmoL/L CRITICAL RESULT Results called and read back/verified to: HAILEE on 12/15/23 at 0721 By Marzena Burnette MLT CL 98 98-107 mmol/L CO2 34 22.0-30.0 mmol/L GAP 7.6 5-15 mEq/L BUN 17 7-17 mg/dl CREATT 1.30 0.52-1.04 mg/dl CRCLE 32 50-200 mL/min GFRAA 49 >60 ML/MIN EGFR 41 >60 ml/min GLU 154 74-100 mg/dl Delta: 122 on 12/14/23-0557 CA 7.9 8.4-10.2 mg/dl H-CBC Reviewed date:12/17/2023 11:14:36 AM Interpretation: Performing Lab: Notes/Report: WBC 5.0 4.8-10.8 K/mm3 RBC 3.58 4.20-5.40 M/mm3 HGB 9.7 12.2-16.2 g/dL HCT 34.3 37.0-47.0 % MCV 95.8 81-99 fl MCH 27.2 27.0-31.2 pg MCHC 28.4 31.8-35.4 g/dL RDW 24.3 11.5-17.5 % PLT 215 142-424 K/mm3 MPV 7.5 7.4-10.4 fl NE% 71.0 37.0-80.0 % LY% 19.9 10-50 % MO% 8.7 1.7-9.3 % EO% 0.3 0.1-12.0 % BA% 0.1 0.1-2.0 % NE# 3.5 1.8-7.8 K/mm3 LY# 1.0 0.7-4.5 K/mm3 MO# 0.4 0.1-1.0 K/mm3 EO# 0.0 0.0-0.4 K/mm3 BA# 0.0 0-0.2 K/mm3 H-BMP Reviewed date:12/17/2023 11:14:36 AM Interpretation: Performing Lab: Notes/Report: NA 140 136-145 mmol/L K 3.6 3.5-5.1 mmoL/L CL 95 98-107 mmol/L CO2 37 22.0-30.0 mmol/L GAP 11.6 5-15 mEq/L BUN 20 7-17 mg/dl CREATT 1.30 0.52-1.04 mg/dl CRCLE 32 50-200 mL/min GFRAA 49 >60 ML/MIN EGFR 41 >60 ml/min GLU 112 74-100 mg/dl CA 8.1 8.4-10.2 mg/dl Reason For Referral Reason Would like for them to see patient sometime in the next 2 or 3 weeks if possible Diagnosis 1 Anemia, unspecified type (D64.9) Diagnosis 2 Gastrointestinal hem orrhage, unspecified gastrointestinal hemorrhage type (K92.2) Diagnosis 3 Hepatic cirrhosis, u nspecified hepatic cirrhosis type, unspecified whether ascites present (K74.60) [facility]erring Provider First Name Marciano Referring Provider Last Name Diana Referring Provider Speciality Family [facility] Referred Provider LISETH MARCELO Referred Provider Specialty Gastroentero logy General Notes Adela Chiu 11/27/19 1:38:33 PM > faxed to Dr. Marcelo office Referral Priority Routine Diagnosis 1 Dyspepsia (R10.13) [facility] Referring Provider First Name Latosha Referring Provider Last Name Lino Referring Provider Speciality Physician Director Vaccine Referred Provider Specialty Gastroentero logy General Notes Latosha Huynh 01/2025 02:28:47 PM > Pt needs to see Apple Bolton Brynn 07/30/2024 03:35:09 PM > faxed to Dr. Marcelo office Referral Priority Routine Reason nephrology at [facility] Diagnosis 1 Abnormal kidney func tion (N28.9) [facility]erring [facility] First Name Latosha Referring Provider Last Name Lino Referring Provider Speciality Physician Director Vaccine Referred Provider Specialty Nephrology General Notes Adela Chiu 2024 01:11:50 PM > lvm with nephrology to call back with fax number to send referral, Adela Chiu 08/10/2024 08:56:34 AM > faxed to Dr. Leigh's office; fax failed; spoke to Mariana in clinic; was told to fax to Referral Priority Routine Medications Medication SIG (Take, Route, Frequency, Duration) Notes Start Date End Date Status Acetaminophen 325 MG 2 tablet as needed Orally every 6 hrs as needed Active Jardiance 10 MG 1 tablet Orally Once a day; Duration: 90 days Active FreeStyle Margaret 3 Plus Sensor - change every 15 days; Duration: 90 days Active Ondansetron HCl 4 MG 1 tablet Orally tid prn Active Furosemide 40 MG 1/2 tab Orally Once a day; Duration: 90 days Active Montelukast Sodium 10 mg TAKE ONE TABLET BY MOUTH EVERY DAY; Duration: 90 days Active Rosuvastatin Calcium 10 mg TAKE ONE TABL ET BY MOUTH EVERY DAY AT BEDTIME; Duration: 90 Active Entresto 24-26 MG TAKE ONE TABLET BY M OUTH TWICE DAILY; Duration: 30 Active Metoprolol Succinate ER 25 MG 1 tablet Orally Once a day; Duration: 90 days 04/18/2023 Active Levothyroxine Sodium 137 mcg TAKE ONE TABLET BY MOUTH EVERY MORNING ON AN EMPTY STOMACH; Duration: 90 Active Loratadine 10 MG 1 tablet Orally Once a day; Duration: 90 days 01/31/2023 Active Xarelto 15 MG 1 tablet with food O rally once a day; Duration: 90 days Active Wheelchair - as directed 04/18/2023 Acti ve Tresiba FlexTouch 200 UNIT/ML 60 units Subcutaneous once daily 05/01/2024 Active Centrum Silver Ultra Womens - 1 tab(s) orally once a day Active Spironolactone 50 MG 1 tablet Orally Onc e a day; Duration: 90 days Active Fluticasone Propionate 50 MCG/ACT 1 spray(s) intranasally Two times a day 06/30/2019 Active Albuterol Sulfate (2.5 MG/3ML) 0.083% 3 mL as needed Inhalation every 6 hrs 02/20/2024 Active Feosol Bifera 28 MG 1 tablet Orally Once a day 11/27/2023 Active Albuterol Sulfate HFA 108 (90 Base) MCG/ACT inhale 1 TO 2 puffs BY MOUTH FOUR TIMES DAILY NEEDED - SHAKE WELL BEFORE USE-; Duration: 30 Active Desvenlafaxine ER 50 MG 1 tablet Orally Once a day; Duration: 30 days Active Vitamin B-12 1000 MCG 1 tablet Orally On a day 11/27/2023 Active Ozempic (0.25 or 0.5 MG/DOSE) 2 MG/3ML 0.5 mg Subcutaneous once weekly 04/27/2024 Active Advair Diskus 250-50 MCG/ACT 1 inh inhaled 2 times a day; Duration: 30 days Active Immunizations Vaccine Route Administration Date Status Comme nts Tetanus Tdap-Adacel (over 7yrs) Unknown 11/25/2014 Administered Prevnar (PCV20) IM Intramuscular 04/30/2024 Administered PNEUMOVAX 23 VACCINE IM Intramuscular 09/30/2019 Administe red PNEUMOVAX 23 VACCINE Unknown 03/20/2023 Administered Fluzone Quad-Medicare (6months&older) IM Intramuscular 11/07/2017 Administered Fluzone High Dose (65yr and older) IM Intramuscular 10/31/2022 Administered Fluzone High Dose (65yr and older) IM Intramuscular 04/30/2024 Administered COVID 19 Bola Unknown 09/28/2020 Administered Problems Problem Type SNOMED Code ICD Code Onset Dates Problem Status W/U Status Risk Notes Problem Type II diabetes mellitus without complication (242005325) Type 2 diabetes mellitus without complications (E11.9) Active confirmed Problem Essential hypertension (69393462) Essential (primary) hypertension (I10) Active confirmed Problem Hyperlipidemia (81675467) Hyperlipidemia (E78.5) Active confirmed Problem Atrial fibrillation (47179146) Atrial fibrillation (I48.91) Active confirmed Problem Vitamin D deficiency (37996397) Vitamin D deficiency (E55.9) Active confirmed Problem Essential hypertension (97031330) Essential hypertension (I10) Active confirmed Problem Hypoglycemic state i n diabetes (360202890) Hypoglycemia associated with diabetes (E11.649) Active confirmed Problem Hypokalemia (75307643) History of hypokalemia (Z86.39) Active confirmed Problem Mixed anxiety and depressive disorder (605147568) Depression with anxiety (F41.8) Active confirmed Problem Sciatica (65279676) Lumbago with sciatica, right side (M54.41) Active confirmed Problem Morbid obesity (disorder) (696845494) Morbid (severe) obesity due to excess calories (E66.01) Active confirmed Problem Congestive heart failure (09881677) CHF (congestive heart failure) (I50.9) Active confirmed Problem Increased blood leukocyte number (492889399) Other elevated white blood cell count (D72.828) Active confirmed Problem Mixed hyperlipidemia (604496155) Mixed hyperlipidemia (E78.2) Active confirmed Problem Hypomagnesemia (770037733) Hypomagnesemia (E83.42) Active confirmed Problem Irritable bowel syndrome with diarrhea (494301893) Irritable bowel syndrome with diarrhea (K58.0) Active confirmed Problem Portal hypertension (20859009) Portal hypertension (K76.6) Active confirmed Problem Overflow incontinenc e of urine (703624130) Overflow incontinence (N39.490) Active confirmed Problem Ascites (614891556) Other ascites (R18.8) Active confirmed Problem Depressive disorder (38968833) Depressive disorder (F32.9) Active confirmed Problem Chronic pain (07034946) Other chronic pain (G89.29) Active confirmed Problem Long-term current us e of insulin (311352777) 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.4) Active confirmed Problem Acquired hypothyroidism (616720404) Acquired hypothyroidism (E03.9) Active confirmed Problem Obesity (994206533) Non morbid o besity due to excess calories (E66.09) Active confirmed Problem Hypothyroidism (54700905) Hypothyroidism (E03.9) Active confirmed Problem COPD - Chronic obstructive pulmonary disease (99674458) Chronic obstructive pulmonary disease, unspecified COPD type (J44.9) Active confirmed Problem Allergic rhinitis (22623293) Allergic rhinitis (J30.9) Active confirmed Problem Asthma without statu s asthmaticus (99643507) Uncomplicated asthma, unspecified asthma severity (J45.909) Active confirmed Problem Leukocytosis (747148914) Leukocytosis, unspecified type (D72.829) Active confirmed Problem Anemia (427559419) Anemia, unspe cified type (D64.9) Active confirmed Problem Osteoarthritis of knee (787800689) Primary osteoarthritis of both knees (M17.0) Active confirmed Problem Atrial fibrillation (33022380) Atrial fibrillation, unspecified type (I48.91) Active confirmed Problem Body mass index 40+ - morbidly obese (130712970) BMI 40.0-44.9, adult (Z68.41) Active confirmed Problem Dysphagia (53982252) Dysphagia, unspecified type (R13.10) Active confirmed Problem Atrial fibrillation (55775929) Atrial fibrillation with RVR (I48.91) Active confirmed Problem Heart failure (48111758) Congestive heart failure, unspecified congestive heart failure chronicity, unspecified congestive heart failure type (I50.9) Active confirmed Problem Sciatica (01658149) Acute left-s ided low back pain with left-sided sciatica (M54.42) Active confirmed Problem Type II diabetes mellitus without complication (270329219) Type 2 diabetes mellitus without complication, without long-term current use of insulin (E11.9) Active confirmed Problem Leukocytosis (324901587) Leukocytosis, unspecified (D72.829) Active confirmed Problem Obese class II (024285420085823) BMI 39.0-39.9,adult (Z68.39) Active confirmed Problem Automatic implantabl e cardiac defibrillator in situ (735866452) 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) Active confirmed Problem Pure hypercholesterolemia (118641088) Pure hypercholesterolemia (E78.00) Active confirmed Problem Cardiomyopathy (80405562) Cardiomyopathy, unspecified type (I42.9) Active confirmed Problem Blood chemistry abnormal (864230560) Elevated lactic acid level (R79.89) Active confirmed Problem Allergic rhinitis (24425286) Chronic allergic rhinitis, unspecified seasonality, unspecified trigger (J30.9) Active confirmed Problem Seasonal allergic rhinitis (246497491) Seasonal allergic rhinitis, unspecified trigger (J30.2) Active confirmed Problem Allergic rhinitis (48467780) Allergic rhinitis, unspecified seasonality, unspecified trigger (J30.9) Active confirmed Problem Essential hypertension (10486651) Hypertension, unspecified type (I10) Active confirmed Problem Heart failure (11977310) Congestive heart failure, unspecified HF chronicity, unspecified heart failure type (I50.9) Active confirmed Problem Cirrhosis - non-alcoholic (358965228) Hepatic cirrhosis, unspecified hepatic cirrhosis type, unspecified whether ascites present (K74.60) Active confirmed Problem Flexural atopic dermatitis (187335275) Flexural atopic dermatitis (L20.89) Active confirmed Problem Type 2 diabetes mellitus with other specified complication, unspecified whether lobsterman insulin use (E11.69) Active confirmed Problem Systolic heart failure (517331606) HFrEF (heart failure with reduced ejection fraction) (I50.20) Active confirmed Vital Signs Heart Rate 70 /min 07/30/2024 Blood pressure diastolic 60 mm Hg 07/30/2024 Height 62 in 07/30/2024 Blood pressure systolic 100 mm Hg 07/30/2024 Weight 223 lbs 07/30/2024 BMI 40.78 kg/m2 07/30/2024 Encounters Encounter Location Date Provider Diagnosis [facility] [address] [place] [id number] 11/27/2023 Marciano Rosston Gastrointestinal hemorrhage, unspecified gastrointestinal hemorrhage type K92.2 ; Anemia, unspecified type D64.9 ; Peripheral edema R60.0 ; Renal insufficiency N28.9 ; Hypokalemia E87.6 ; Hypomagnesemia E83.42 ; Hepatic cirrhosis, unspecified hepatic cirrhosis type, unspecified whether ascites present K74.60 and SOB (shortness of breath) R06.[address] [place] [id number] 12/25/2023 Marcianoirina HandyRosston Type 2 diabetes zulay itus without complication, without long-term current use of insulin E11.9 ; Congestive heart failure, unspecified congestive heart failure chronicity, unspecified congestive heart failure type I50.9 ; Renal insufficiency N28.9 ; Anemia, unspecified type D64.9 ; Hypomagnesemia E83.42 and Presence of combination internal cardiac defibrillator (ICD) and pacemaker Z95.[address] [place] [id number] 01/22/2024 Marciano Rosston Acquired hypothyroid ism E03.9 ; Anemia, unspecified type D64.9 ; Renal insufficiency N28.9 ; Acute URI J06.9 and Hypomagnesemia E83.[address] [place] [id number] 02/20/2024 Marciano Rosston Acute URI J06.9 ; Ty pe 2 diabetes mellitus without complication, without long-term current use of insulin E11.9 ; Congestive heart failure, unspecified congestive heart failure chronicity, unspecified congestive heart failure type I50.9 ; Essential hypertension I10 ; Chronic obstructive pulmonary disease, unspecified COPD type J44.9 and Chronic allergic rhinitis, unspecified seasonality, unspecified trigger J30.[address] [place] [id number] 04/30/2024 Latosha Huynh Type 2 diabetes zulay itus without complication, without long-term current use of insulin E11.9 ; Congestive heart failure, unspecified congestive heart failure chronicity, unspecified congestive heart failure type I50.9 ; Essential hypertension I10 ; Chronic obstructive pulmonary disease, unspecified COPD type J44.9 ; Chronic allergic rhinitis, unspecified seasonality, unspecified trigger J30.9 ; Hyperlipidemia E78.5 and Encounter for immunization Z23 [facility] [address] [facility] [address] [place], [place] [id number] 05/22/2024 Latosha Huynh Acute URI J06.9 ; Ty pe 2 diabetes mellitus without complication, without long-term current use of insulin E11.9 ; Hypertension, unspecified type I10 and Hypothyroidism E03.9 [facility] [address] [facility] [address] [place], [place] [id number] 07/02/2024 Latosha Huynh Renal insufficiency N28.9 [facility] [address] [facility] [address] [place], [place] [id number] 07/30/2024 Latosha Huynh Adult general medica l [...] mellitus with other specified complication, unspecified whether lobsterman insulin use E11.69 ; Morbid (severe) obesity due to excess calories E66.01 ; Portal hypertension K76.6 and Cardiomyopathy, unspecified type I42.9 [facility] [address] [facility] [address] [place], [place] [id number] 10/24/2023 Marciano Rosston [facility] [address] [facility] [address] [place] [id number] 11/28/2023 Marciano Rosston [facility] [address] [facility] [address] [place] [id number] 12/09/2023 Marciano Rosston [facility] [address] [place], [place] [id number] 12/20/2023 Marciano Rosston [facility] [address] [place], [place] [id number] 12/20/2023 Marciano Rosston [facility] [address] [place], [place] [id number] 12/23/2023 Marciano Rosston [facility] [address] [place] [id number] 12/24/2023 Marciano Rosston [facility] [address] [place] [id number] 12/26/2023 Marciano Rosston [facility] [address] [place] [id number] 01/01/2024 Marciaon Rosston [facility] [address] [place] [id number] 01/07/2024 Marciano Rosston Congestive heart tracy lure, unspecified congestive heart failure chronicity, unspecified congestive heart failure type I50.9 [facility] [address] [place], [place] [id number] 01/23/2024 Marciano Rosston [facility] [address] [place] [id number] 02/04/2024 Marciano Rosston [facility] [address] [place] [id number] 02/04/2024 Marciano Rosston [facility] [address] [place] [id number] 02/06/2024 Marciano Rosston [facility] [address] [place] [id number] 04/23/2024 Marciano Rosston Type 2 diabetes zulay itus without complication, without long-term current use of insulin E11.9 [facility] [address] [place] [id number] 05/01/2024 Latosha Huynh [facility] [address] [place] [id number] 05/03/2024 Latoshasridhar Huynh [facility] [address] [place] [id number] 05/22/2024 Latosha Huynh Acute URI J06.9 [facility] [address] [place], [place] [id number] 06/03/2024 Latosha Drakedy [facility] [address] [place] [id number] 07/03/2024 Latosha Crowdy [facility] [address] [place], [place] [id number] 07/15/2024 Latosha Huynh [facility] [address] [place] [id number] 08/06/2024 Latosha Juancleveland Assessments Encounter Date Diagnosis (ICD Code) Assessment Notes Treatment Notes Treatment Clinical Notes Section Notes 11/27/2023 Anemia, unspecified type (ICD-10 - D64.9) 11/27/2023 Gastrointestinal hemorrhage, unspecified gastrointestinal hemorrhage type (ICD-10 - K92.2) 12/25/2023 Congestive heart failure, unspecified congestive heart failure chronicity, unspecified congestive heart failure type (ICD-10 - I50.9) Holding Lasix due to CHF 12/25/2023 Type 2 diabetes mellitus without complication, without long-term current use of insulin (ICD-10 - E11.9) 01/07/2024 Congestive heart failure, unspecified congestive heart failure chronicity, unspecified congestive heart failure type (ICD-10 - I50.9) 01/22/2024 Acquired hypothyroidism (ICD-10 - E03.9) 01/22/2024 Anemia, unspecified type (ICD-10 - D64.9) 02/20/2024 Acute URI (ICD-10 - J06.9) 02/20/2024 Type 2 diabetes mellitus without complication, without long-term current use of insulin (ICD-10 - E11.9) 04/23/2024 Type 2 diabetes mellitus without complication, without long-term current use of insulin (ICD-10 - E11.9) 04/30/2024 Congestive heart failure, unspecified congestive heart failure chronicity, unspecified congestive heart failure type (ICD-10 - I50.9) Follows with cardiology. 04/30/2024 Type 2 diabetes mellitus without complication, without long-term current use of insulin (ICD-10 - E11.9) Patient has been off of her insulin and is going to product picker her Ozempic today. Will titrate dose after 4 injections. 05/22/2024 Acute URI (ICD-10 - J06.9) 05/22/2024 Type 2 diabetes mellitus without complication, without long-term current use of insulin (ICD-10 - E11.9) 05/22/2024 Acute URI (ICD-10 - J06.9) 07/02/2024 Renal insufficiency (ICD-10 - N28.9) 07/30/2024 Dyspepsia (ICD-10 - R10.13) 07/30/2024 Adult general medical examination (ICD-10 - Z00.00) Patient instructed to return to office Annually for Annual Wellness Visits to include annual screenings of Pain assessment, Functional Ability assessment, Cognitive Ability assessment, Fall Risk assessment, Depression screening and Bladder control screening. 07/30/2024 Depression with anxiety (ICD-10 - F41.8) 05/22/2024 Hypertension, unspecified type (ICD-10 - I10) 04/30/2024 Essential hypertension (ICD-10 - I10) 01/22/2024 Renal insufficiency (ICD-10 - N28.9) 02/20/2024 Congestive heart failure, unspecified congestive heart failure chronicity, unspecified congestive heart failure type (ICD-10 - I50.9) 11/27/2023 Peripheral edema (ICD-10 - R60.0) 12/25/2023 Renal insufficiency (ICD-10 - N28.9) 11/27/2023 Renal insufficiency (ICD-10 - N28.9) 12/25/2023 Anemia, unspecified type (ICD-10 - D64.9) 02/20/2024 Essential hypertension (ICD-10 - I10) 01/22/2024 Acute URI (ICD-10 - J06.9) 05/22/2024 Hypothyroidism (ICD-10 - E03.9) 04/30/2024 Chronic obstructive pulmonary disease, unspecified COPD type (ICD-10 - J44.9) 07/30/2024 Congestive heart failure, unspecified congestive heart failure chronicity, unspecified congestive heart failure type (ICD-10 - I50.9) Follows with cardiology. 07/30/2024 Essential hypertension (ICD-10 - I10) 04/30/2024 Chronic allergic rhinitis, unspecified seasonality, unspecified trigger (ICD-10 - J30.9) 02/20/2024 Chronic obstructive pulmonary disease, unspecified COPD type (ICD-10 - J44.9) 12/25/2023 Hypomagnesemia (ICD-10 - E83.42) 01/22/2024 Hypomagnesemia (ICD-10 - E83.42) 11/27/2023 Hypokalemia (ICD-10 - E87.6) 11/27/2023 Hypomagnesemia (ICD-10 - E83.42) 12/25/2023 Presence of combination internal cardiac defibrillator (ICD) and pacemaker (ICD-10 - Z95.810) 04/30/2024 Hyperlipidemia (ICD-10 - E78.5) 02/20/2024 Chronic allergic rhinitis, unspecified seasonality, unspecified trigger (ICD-10 - J30.9) 07/30/2024 Renal insufficiency (ICD-10 - N28.9) 04/30/2024 Encounter for immunization (ICD-10 - Z23) 07/30/2024 Vitamin B12 deficiency (ICD-10 - E53.8) 11/27/2023 Hepatic cirrhosis, unspecified hepatic cirrhosis type, unspecified whether ascites present (ICD-10 - K74.60) 11/27/2023 SOB (shortness of breath) (ICD-10 - R06.02) 07/30/2024 Type 2 diabetes mellitus without complication, [...] mellitus with other specified complication, unspecified whether retirement insulin use (ICD-10 - E11.69) 07/30/2024 Morbid (severe) obesity due to excess calories (ICD-10 - E66.01) 07/30/2024 Portal hypertension (ICD-10 - K76.6) 07/30/2024 Cardiomyopathy, unspecified type (ICD-10 - I42.9) Plan Of Treatment Pending Test Test Name Order Date Stool Guaiac(Occult Blood) 05/30/2022 Mammogram 07/30/2024 CBC 06/22/2020 Urinalysis 06/22/2020 H-BMP 11/09/2020 P-BNP (Brain Natriuretic Peptide) 2023 Insurance Providers Payer Name Payer Address Payer Phone Subscriber Number Group Number Insured Name Patient Relationship to Insured Coverage Start Date Coverage End Date [employer] [address] [place] [address] [phone] [id number] CURRENT, ALINA Self - patient is the insured Medical (General) History Medical History History ICD Code Congestive Heart Failure, Dx: 2000 - Dr. Escalante Biologist Aide Hypertension Hyperlipidemia Type 2 Diabetes Hypothyroidism Depression Irritable Bowel Syndrome with Diarrhea Osteoarthritis, knees Asthma/COPD Allergic Rhinitis Low Back Pain Atrial fibrillation, Dx: 2018 cirrhosis ascities Pacemaker/defibrillator Surgical History Surgery Date(Month/Year) Bilateral Tubal Ligation 1990 Cholecystectomy 1994 Heart Cath - [facility] - Dr. Escalante 03/2015 Rt Ovarian Cyst removed 11/2016 Esophageal dilation pacemaker-defibrillator 11/2023 Hospitalization History Reason Date(Month/Year) Ovarian Cyst Removal- [facility] 11/2016
--- OUTSIDE RECORDS SUMMARY | 2024-08-13 15:36 | XMS_ITS | Data Portability ---
Author Organization [facility] [place] [facility] [place] [facility] ADMIN Address [address] [place] [phone] Assessment Encounter Date Assessment Date Assessment LastModified by Organization Details LastModified Time 08/07/2022 08/07/2022 66-year-old female with chronic diarrhea and intermittent bright red blood with wiping. EGD [place] [address] Marcelo showed gastritis. Clonoscopy in 2019 with diverticulosis, internal hemorrhoids, and a diminutive polyp (repeat 7-10 years was recommended). -Will obtain stool studies per below. -Will trial Colestipol 2g BID for possible bile acid diarrhea -May need to consider repeat colonoscopy +/- EGD to evaluate for underlying Celiac, IBD, or Microscopic colitis if no improvement with above therapy and/or no etiology on stool study. f/u 4 weeks [email or web address] Not available 08/07/2022 14:42:21 Plan of Treatment Reminders Order Date Submit Date Provider Last Modified By Organization Details Last Modified Time Details Appointments None recorded. Lab gastrointes tinal pathogens panel, PCR, stool 2022 023 [email or web address] 64 [facility] (Lab), [address] [place] [address] [address], [place], [address], 3 11:43:47 O&P (ova & parasites), stool 2022 023 [email or web address] 64 [facility] (Lab), [address] [place] [address] [address], [place], [address], 3 11:43:47 calprotecti n, stool [address] (Lab), [address] [place] [address] [address], [place], [address], 3 11:43:47 pancreatic elastase, stool [email or web address] (Lab), [address] [place] [address] [address], [place], [address], 3 11:43:47 fecal fat, qualitative , stool [address] (Lab), [address] [place] [address] [address], [place], [address], 3 11:43:47 Referral None recorded. Procedures None recorded. Surgeries None recorded. Imaging None recorded. Medication Orders colestipol 1 gram tablet 2022 023 [facility], [address] [place] [address] [address], [place], [id number], 3 14:53:06 Patient TargetsNo targets recorded. Patient InstructionsNo instructions recorded. Reason for Referral None Reported. Results Created Date Observation Date Name Description Value Unit Range Abnormal Flag Note LastModifiedBy Organization Detail LastModifiedTime Result Notes None recorded. 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 Medical Equipment None Reported. Allergies Allergen ID Allergen Name Allergen Category Reaction Reaction Severity Criticality Documentation Date Start Date Code Code System Note Provider Name and Address Organization Details Recorded Time 26974 tetracycl ine medicatio n Not available Not available Not available 08/07/2022 22025 RxNorm [place] [facility] [place] 3 13:47:28 36773 Aleve medicatio n Not available Not available Not available 08/07/2022 94618 1 RxNorm [place] [facility] [place] 3 13:47:45 Medications Name Sig Start Date Stop Date Status Note LastModified by Organization Details LastModified Time levothyroxi ne 175 mcg tablet TAKE ONE TABLET BY MOUTH EVERY DAY 08/07 completed Not Available Not Available Not Available fluticasone 250 mcg-salmete rol 50 mcg/dose blistr powdr for inhalation INHALE 1 PUFF BY MOUTH TWICE DAILY --RINSE MOUTH AFTER USE-- active Not Available Not Available No t Available metoprolol tartrate 100 mg tablet TAKE ONE TABLET BY MOUTH TWICE DAILY active Not Available Not Available No t Available sertraline 100 mg tablet TAKE 1 AND 1/2 TABLET BY MOUTH EVERY DAY active Not Available Not Available No t Available potassium chloride ER 10 mEq tablet,exte nded release TAKE ONE TABLET BY MOUTH EVERY DAY active Not Available Not Available No t Available triamcinolo ne acetonide 0.1 % topical cream APPLY TOPICALLY TO THE AFFECTED AREA(S) THREE TIMES DAILY active Not Available Not Available No t Available metformin 1,000 mg tablet TAKE ONE TABLET BY MOUTH EVERY DAY IN THE MORNING active Not Available Not Available No t Available montelukast 10 mg tablet TAKE ONE TABLET BY MOUTH EVERY DAY active Not Available Not Available No t Available levothyroxi ne 200 mcg tablet TAKE ONE TABLET BY MOUTH EVERY DAY active Not Available Not Available No t Available mupirocin 2 % topical ointment APPLY TOPICALLY TO THE AFFECTED AREA(S) ONCE DAILY active Not Available Not Available No t Available cefuroxime axetil 500 mg tablet TAKE ONE TABLET BY MOUTH EVERY TWELVE HOURS -- FINISH ALL MEDICINE -- active Not Available Not Available No t Available losartan 50 mg-hydrochl orothiazide 12.5 mg tablet TAKE ONE TABLET BY MOUTH EVERY DAY active Not Available Not Available No t Available colestipol 1 gram tablet TAKE TWO TABLETS BY MOUTH TWICE DAILY active Not Available Not Available No t Available escitalopra m 20 mg tablet TAKE ONE TABLET BY MOUTH EVERY DAY active Not Available Not Available No t Available cyclobenzap rine 5 mg tablet TAKE ONE TABLET BY MOUTH THREE TIMES DAILY NEEDED active Not Available Not Available No t Available rosuvastati n 10 mg tablet TAKE ONE TABLET BY MOUTH EVERY DAY AT BEDTIME active Not Available Not Available No t Available fluocinonid e 0.1 % topical cream APPLY TOPICALLY TO THE AFFECTED AREA(S) TWICE DAILY active Not Available Not Available No t Available Xarelto 20 mg tablet TAKE ONE TABLET BY MOUTH EVERY DAY IN THE EVENING active Not Available Not Available No t Available Invokana 100 mg tablet TAKE ONE TABLET BY MOUTH EVERY DAY active Not Available Not Available No t Available Victoza 3-Atif 0.6 mg/0.1 mL (18 mg/3 mL) subcutaneou s pen injector INJECT 1.8 MG SUBCUTANE OUSLY ONCE DAILY active Not Available Not Available No t Available insulin degludec (U-200) 200 unit/mL (3 mL) subcutaneou s pen INJECT 60 UNITS SUBCUTANE OUSLY ONCE DAILY active Not Available Not Available No t Available FreeStyle Margaret 2 Sensor kit USE [facility] g active Not Available Not Available No t Available Vitals Date Recorded Body weight Body temperature Heart rate Oxygen saturation Oxygen saturation in Arterial blood by Pulse oximetry Systolic blood pressure Diastolic blood pressure Provider Name and Address Organization Details Last Updated DateTime 3 691083. 09 g 97.2 [degF] 106 /min 95 % 95 % 97 mm[Hg] 65 mm[Hg] [facility] 3 13:47:55 Social History None recorded. Functional Status None recorded. Mental Status None recorded. Family History Nothing Reported. Medical History No medical history recorded. Gynecological HistoryNo gynecological history recorded. 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 Chronic diarrhea 1807907 09 K52.9 History of cholecystectomy 415524301 Z90.49 Health Concerns Section Related Observation LastModified by Organization Detai ls LastModified Time None Recorded Concern Status LastModified by Organization Details LastModified Time None Recorded Advance Directives Directive None Recorded Payers Insurance Date Sequence Insurance Name Policy Number Policy Abraham Covered Member ID Abraham Member ID Guarantor Name 09/02/2022 1 [place] (MEDICARE REPLACEMENT HMO) [id number] Margi Current [id number] Margi Current Notes Date Note Type Note Provider Name and Address Organization Details Recorded Time 08/07/2022 text/html Very pleasant 66-year-old female who was referred by Latosha Huynh APRN for evaluation of chronic diarrhea. She reports diarrhea has been present for the past few years. She has noted that corn, popcorn, and salads seem to be triggers for this. She has noted occasional blood with wiping intermittently over the past few weeks, but none for the past 1 week. She constipation or excessive bloating. She underwent EGD and colonoscopy within the past [address] Marcelo. EGD showed gastritis and esophagitis while her colonscopy showed internal hemorrhoids, a diminutive polyp, and left sided diverticulosis. She has previously treated her diarrhea with Imodium and Pepto, which have been somewhat helpful. She was previously instructed to take Konsyl 3x daily, but she felt this constiapted her in the past. Meliton Clarke PA-C [address], [place], [address], [facility] [place] [facility] [place] [facility] [place] 08/07/2022 14:42:33 OBGyn Episode No OBEpisode recorded.
--- OUTSIDE RECORDS SUMMARY | 2024-08-13 15:36 | XMS_ITS | Clinical Summary ---
Author Organization Healthcare Address [address] [place] [address] Care Team Providers Care Supply Person Name Role Phone Marciano Ortiz MD Primary Care Provider [phone] Social History Tobacco Use Types Packs/Day Years Used Date Smoking Tobacco: Never Assessed Comments Unknown Sex and Gender Information Value Date Recorded Sex Assigned at Not on file Legal Sex Female 7:32 PM EDT Gender Identity Not on file Sexual Orientation Not on file Plan of Treatment Upcoming Encounters Date Type Department Care Team (Late st Contact Info) Description 10/14/2024 1:00 PM EDT Office Visit Professional [facility] Nephrology, Bone & Mineral Metabolism [address], [address] [place] [address] [place] MD [address] [place] [address] Health Maintenance Due Date Last Done Comments [facility]-Bone Density Scan 1956 [facility]-Depression Screening 1956 [facility]-Hepatitis C Screening 1956 [facility]-/Child/Adol SDOH Screenings 1956 [facility]- SDOH Screenings 1974 [facility]-Adult SDOH Screenings 1974 [facility]-DTaP,Tdap,and Td Vaccine s (1 - Tdap) 10/24/1975 CT Colonography 2001 Colonoscopy 2001 FIT-DNA 2001 FIT 2001 FOBT 2001 Sigmoidoscopy 2001 [facility]-Colorectal Cancer Screening 2001 [facility]-Breast Cancer Screening 2006 [facility]-Pneumococcal Vaccine: 50 + Years (1 of 1 - PCV) 2006 [facility]-Zoster Vaccines (1 of 2) 2006 [id number]-23 Vaccine (1 - 20 24-25 season) 2023 [facility]-Influenza Vaccine (Seas[place] n Ended) 2024 [facility]-RSV Vaccine: 60+ Years o r (1 - 1-dose 75+ series) 10/24/2031 HPV Vaccines Aged Out No longer eligi ble based on patient's age to complete this topic [facility]-HIB Vaccines Aged Out No longer e ligible based on patient's age to complete this topic [facility]-Hepatitis A Vaccines Aged Out No longer eligible based on patient's age to complete this topic [facility]-IPV Vaccines Aged Out No longer e ligible based on patient's age to complete this topic [facility]-Rotavirus Vaccines Aged Out No lo nger eligible based on patient's age to complete this topic Care Teams Supply Person Relationship Specialty Start Date End Date Marciano Ortiz MD [facility] [address] [address] PCP - General 07/01/20
== END 2024-08-13 23:59 | disposition home or self-care (01) ==
LOC: RAD 15:32
PROVIDERS: PCP Family Medicine; Visit Provider Physician Assistant
DX: Z12.31 Encounter for screening mammogram for malignant neoplasm of breast (principal); R92.323 Mammographic fibroglandular density, bilateral breasts; Z80.3 Family history of malignant neoplasm of breast
CPT/HCPCS: 77063; 77067

== ENCOUNTER 2024-10-07 12:39 | Outpatient (CLI) | payer MEDICARE, SELFPAY ==
--- OUTSIDE RECORDS SUMMARY | 2024-05-22 10:00 | XMS_ITS ---
Author Organization [facility] Address [address] [facility] [address] [place] [id number] Care Team Providers Care Poultry Husbandman Name Role Phone Marciano Ortiz Primary Care Provider [phone] Latosha Huynh Unavailable [phone] Allergies Allergen (clinical drug ingredient) Drug/Non Drug [...] 1.1 Performing Lab: Notes/Report: Test performed by [employer], [employer] [address] [place] [address] , [address], [place] [address] Babak Giordano MD, Chaser Helper CLIA: [id number] Sodium 136 135-145 mmol/L Potassium 5.1 3.5-5.3 [...] day; Duration: 90 days Active Vital Signs Weight 209.8 lbs 05/22/2024 Blood pressure systolic 120 mm Hg 05/23/19 25 Blood pressure diastolic 70 mm Hg 025 Heart Rate 50 /min 05/22/2024 Height 62 in 05/22/2024 BMI 38.37 kg/m2 05/22/2024 Encounters Encounter Location Date Provider Diagnosis [facility] [address], [place] [phone] 05/22/2024 Latosha Huynh Acute URI J06.9 ; Ty pe 2 [...] * CURRENT, REBECCADOB:[birth year] (68 yo F)Acc No.[id number]:05/22/2024 Progress Notes Patient: ALINA MEANS Provider: BURAK Schrader :1955 A ge:68 Y S ex:Female Date:05/22/2024 Address:[address] [place] [address] [id number] Pcp:Marciano Ortiz Subjective: * Chief Complaints: * [...] Heart Failure, Dx: 2000 - 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 * Surgical History: B ilateral Tubal Ligation 1990, Cholecystectomy 1994, Heart Cath - [facility] - Dr. Escalante 03/2015, Rt Ovarian Cyst removed 11/2016, Esophageal dilation , pacemaker-defibrillator 11/2023. * Hospitalization/Major Diagno stic Procedure: O varian Cyst Removal- [facility] 11/2016. * Family History: F ather: , [...] G 2211 Complex e/[place], [address] [place], [address] CBC WITH AUTO DIFF, 56533 Flu Test- Nasal Swab, Modifiers: QW , 32414 COVID TEST IN HOUSE, Modifiers: QW , G8752 MOST RECENT SYSTOLIC BP < 140MM HG, G8754 MOST RECENT DIASTOLIC BP < 90MM HG, 3051F HG A1C>EQUAL 7.0%<8.0% * Follow Up: v ia phone to report test results * Images: Billing Information: * Visit Code: 41059 Office Visit, Est Pt., Level 3. * Procedure Codes: G2211 Complex e/[place] [address] [place] [address] CBC WITH AUTO DIFF. 06219 Flu Test- Nasal Swab. Modifiers: QW 94854 COVID TEST IN HOUSE. Modifiers: QW G8752 MOST RECENT SYSTOLIC BP < 140MM HG. G8754 MOST RECENT DIASTOLIC BP < 90MM HG. 3051F HG A1C>EQUAL 7.0%<8.0%. * Electronic signature of BURAK Page on 10/07/2024 at 12:42 PM EDT Sign off status: Pending * Provider: BURAK Schrader Date: 0 05/22/2024 Generated for Ellen ledezma/Melania/Naren on: 0 10/07/2024 12:42 PM EDT History and Physical Notes * [...]
--- OUTSIDE RECORDS SUMMARY | 2024-07-02 04:50 | XMS_ITS ---
Author Organization [facility] Address [address] [place] [id number] Care Team Providers Care Public Policy Analyst Name Role Phone Marciano Ortiz Primary Care Provider [phone] Latosha Menendez [phone] Results Component Value Reference Range Notes P-Basic Metabolic Panel (BMP ) Reviewed date:07/15/2024 06:06:22 PM Interpretation: Performing Lab: Notes/Report: Test performed by [employer], [facility] [address] [place] [address] , [address], [place] [address] Babak Giordano MD, Clamp Carrier Operator CLIA: [id number] Sodium 135 135-145 mmol/L Potassium 5.9 3.5-5.3 mmol/L Chloride 96 97-108 mmol/L CO2 29 22-32 mmol/L Glucose 179 65-99 mg/dL BUN 46 8-23 mg/dL Creatinine 1.63 0.50-1.00 mg/dL Calcium 9.5 8.6-10.4 mg/dL eGFR by Creatinine 34 >59 mL/min/1.73m2 REASON FOR VISIT lab recheck Encounters Encounter Location Date Provider Diagnosis [facility] [address] [facility] [address] [place] [phone] 07/02/2024 Latosha Huynh Renal insufficiency N28.9 Assessments Encounter Date Diagnosis (ICD Code) Assessment Notes Treatment Notes Treatment Clinical Notes Section Notes 07/02/2024 Renal insufficiency (ICD-10 - N28.9) Plan Of Treatment No Information Progress Notes * CURRENTALINADOB:[birth year] (68 yo F)Acc No.[id number]:07/02/2024 Patient: ALINA MEANS Provider: BURAK Schrader :1955 A ge:68 Y S ex:Female Date:07/02/2024 Address:[address] [place], [place] [address] Pcp:Marciano Ortiz Subjective: * Chief Complaints: * [...] signature of BURAK Page on 10/07/2024 at 12:41 PM EDT Sign off status: Pending * Provider: BURAK Schrader Date: 0 07/02/2024 Generated for Printi ng/Faxing/eTransmitting on: 0 10/07/2024 12:41 PM EDT
--- OUTSIDE RECORDS SUMMARY | 2024-07-30 10:00 | XMS_ITS ---
Author Organization [facility] Address [address] [facility] [address] [place] [id number] Care Team Providers Care Ux Engineer Name Role Phone Marciano Ortiz Primary Care Provider Latosha Huynh Unavailable [phone] Allergies Allergen (clinical drug ingredient) Drug/Non Drug [...] Interpretation:1970 Performing Lab: Notes/Report: Test performed by [email or web address], [facility] [address] [place] [address] , [address], [place] [address] Babak Giordano MD, Crime Scene Examiner CLIA: [id number] Vitamin B12 1168 738-7450 pg/mL P-Comprehensive Metabolic Pa abhinav (CMP) Reviewed date:08/06/2024 02:19:27 PM Interpretation:Chl 95, Glu 148, BUN 27, Creat 1.31, eGFR 44, A/G 1.1 Performing Lab: Notes/Report: Test performed by [facility] [address] , [address], [place] [address] Babak Giordano MD, Crime Scene Examiner CLIA: [id number] Sodium 135 135-145 mmol/L Potassium 4.3 3.5-5.3 [...] Interpretation:Normal Performing Lab: Notes/Report: Test performed by [facility] [address] , [address], [place] [address] Babak Giordano MD, Crime Scene Examiner CLIA: [id number] Ferritin 159.0 13.0-301.0 ng/mL P-Iron Reviewed date:08/06/2024 02:19:27 PM Interpretation:Normal Performing Lab: Notes/Report: Test performed by [facility] [address] , [address], [place] [address] Babak Giordano MD, Crime Scene Examiner CLIA: [id number] Iron 43 37-145 ug/dL P-Microalbumin/Creatinine, R andom Urine Sample Reviewed date:08/06/2024 02:19:27 PM Interpretation:Normal Performing Lab: Notes/Report: Test performed by [facility] [address] , [address], [place] [address] Babak Giordano MD, Crime Scene Examiner CLIA: [id number] Albumin/Creatinine Ratio, Urine 18 0-30 ug/m g Microalbumin, Urine, Random 1.2 Creatinine, Urine 67.5 Mammogram Reviewed date:08/19/2024 12:56:46 PM Interpretation: Performing Lab: Notes/Report: Reason For Referral Diagnosis 1 Dyspepsia (R10.13) [facility] Referring Provider First Name Latosha Referring Provider Last Name Lino Referring Provider 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 Referred Provider Specialty Gastroentero logy General Notes Latosha Huynh 01/2025 02:28:47 PM > Pt needs to see Apple Bolton Brynn 07/30/2024 03:35:09 PM > faxed [...] mellitus with other specified complication, unspecified whether halfway insulin use (E11.69) Active confirmed Problem Morbid obesity (disorder) (219426214) Morbid (severe) obesity due to excess calories (E66.01) Active confirmed Problem Portal hypertension (77954447) Portal hypertension (K76.6) Active confirmed Problem Cardiomyopathy (93572638) Cardiomyopathy, unspecified type (I42.9) Active confirmed Vital Signs Weight 223 lbs 07/30/2024 Blood pressure systolic 100 mm Hg 07/31/19 25 Blood pressure diastolic 60 mm Hg 025 Heart Rate 70 /min 07/30/2024 Height 62 in 07/30/2024 BMI 40.78 kg/m2 07/30/2024 Encounters Encounter Location Date Provider Diagnosis [facility] [address] [facility] [address] [place] [id number] 07/30/2024 Latosha Huynh Adult general medica l [...] mellitus with other specified complication, unspecified whether computer terminal operator insulin use E11.69 ; Morbid (severe) obesity [...] mellitus with other specified complication, unspecified whether halfway insulin use (ICD-10 - E11.69) 07/30/2024 Morbid [...] congestive heart failure type Follows with cardiology. Referrals Referral Date Details 07/30/2024 07/30/2024 Next Appt Details Follow Up: As directed by MD , Reason: Progress Notes * CURRENT, REBECCADOB:[birth year] (68 yo F)Acc No.[id number]:07/30/2024 Annual Wellness Visit Patient: ALINA MEANS Provider: BURAK Schrader :1955 A ge:68 Y S ex:Female Date:07/30/2024 Address:[address] [place] [address] [facility] [id number] Pcp:Marciano Ortiz Subjective: * Chief Complaints: * [...] Heart Failure, Dx: 2000 - Dr. Escalante Spinner Continuous, Hypertension, Hyperlipidemia, Type 2 Diabetes, Hypothyroidism, Depression, Irritable Bowel Syndrome with Diarrhea, Osteoarthritis, knees, Asthma/COPD, Allergic Rhinitis, Low Back Pain, Atrial fibrillation, Dx: 2018, Cirrhosis, Ascities, Pacemaker/defibrillator. * Surgical History: B ilateral Tubal Ligation 1990, Cholecystectomy 1994, Heart Cath - [facility] - Dr. Escalante 03/2015, Rt Ovarian Cyst removed 11/2016, Esophageal dilation , pacemaker-defibrillator 11/2023. * Hospitalization/Major Diagno stic Procedure: O varian Cyst Removal- [facility] 11/2016. * Family History: F ather: [...] calm/peaceful, positive/upbeat. B ladder Control Screening: D enies problems. Assessment: * Assessment: 1. A dult [...] mellitus with other specified complication, unspecified whether computer terminal operator insulin use - E11.69 1 7. M [...] (Collection Date & Time - 07/30/2024 01:45 PM)?1969* Value Reference Range V itamin B12 1970 [...] See phone encounter 9.?Screening mammogram, encounter for?Imaging: Mammogram (Performed Date - 08/13/2024)* Adela Chiu 08/05/2024 04:3 2:20 PM EDT > faxed to [facility] SchedulingLatosha Huynh 08/19/2024 11:06:02 AM EDT >Please let patient know this was normal and she will need a repeat in 1 yearMaira Gruber 08/19/2024 12:56:26 PM EDT > Patient informed of normal results. * Procedure Codes: G 0439 ANNUAL WELLNESS VST; PPS SUBSQT VST, G2211 Complex e/m visit add on, 1090F PRES/ABSN URINE INCON ASSESS, 3288F FALL RISK ASSESSMENT DOCD, 1170F FXNL STATUS ASSESSED, 1159F MED LIST DOCD IN RCRD, 1003F LEVEL OF ACTIVITY ASSESS, 1036F TOBACCO NON-USER, 3017F COLORECTAL CA SCREEN DOC REV, 3051F HG A1C>EQUAL 7.0%<8.0%, 34696 CBC WITH AUTO DIFF, 1125F AMNT PAIN [...] * Images: Billing Information: * Visit Code: 70023 Office Visit, Est Pt., Level 3. Modifiers: 25 * Procedure Codes: G0439 ANNUAL WELLNESS VST; PPS SUBSQT VST. G2211 Complex e/m visit add on. 1090F PRES/ABSN URINE INCON ASSESS. 3288F FALL RISK ASSESSMENT DOCD. 1170F FXNL STATUS ASSESSED. 1159F MED LIST DOCD IN RCRD. 1003F LEVEL OF ACTIVITY ASSESS. 1036F TOBACCO NON-USER. 3017F COLORECTAL CA SCREEN DOC REV. 3051F HG A1C>EQUAL 7.0%<8.0%. 75529 CBC WITH AUTO DIFF. 1125F AMNT PAIN [...] Schrader Date: 0 07/30/2024 Generated for Ellen ledezma/Melania/eTransmitting on: 0 10/07/2024 12:42 PM EDT History [...]
--- OUTSIDE RECORDS SUMMARY | 2024-10-07 12:42 | XMS_ITS | Clinical Summary ---
Author Organization Healthcare Address [address] 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 Mach[employer] Name Role Phone Marciano Ortiz MD Primary Care Provider + [phone] Encounters Date Type Department Care Team Description 08/14/2024 Orders Only [facility] [address] [place] [address] Ansley Jasso Stage 3 chronic kidney disease, unspecified whether stage 3a or 3b CKD (CMS/HCC) (Primary Dx); Vitamin D insufficiency from Last 3 Months Social History Tobacco Use Types Packs/Day Years [...] Description 10/14/2024 1:00 PM EDT Office Visit [facility] Nephrology, Bone & Mineral Metabolism [address], [address] [place] [address] [place] MD [address] [place] [address] Health Maintenance Due Date Last Done Comments [facility]-Bone Density Scan 1956 [facility]-Depression Screening 1956 [facility]-Hepatitis C Screening 1956 [facility]-Medicare Annual Wellness (AWV) 1956 [facility]-/Child/Adol SDOH Screenings 1956 [facility]- SDOH Screenings 1974 [facility]-Adult SDOH Screenings 1974 [facility]-DTaP,Tdap,and Td Vaccine s (1 - Tdap) 10/24/1975 CT Colonography 2001 Colonoscopy 2001 FIT-DNA 2001 FIT 2001 FOBT 2001 Sigmoidoscopy 2001 [facility]-Colorectal Cancer Screening 2001 [facility]-Breast Cancer Screening 2006 [facility]-Pneumococcal Vaccine: 50 + Years (1 of 1 - PCV) 2006 [facility]-Zoster Vaccines (1 of 2) 2006 [id number] Vaccine (1 - 20 24-25 season) 2023 [facility]-Influenza Vaccine (#1) 2024 [facility]-RSV Vaccine: 60+ Years o r [...] on patient's age to complete this topic Insurance [address] [place] [id number] [employer] Care Teams Salesperson [employer] Relationship Specialty Start Date End Date Marciano Ortiz MD [address] [place] [id number] [facility] - General 07/01/20
--- OUTSIDE RECORDS SUMMARY | 2024-10-07 12:42 | XMS_ITS | Encounter Summary ---
Author Organization Healthcare Address [address] [place] [address] Care Team Providers Care Legislative Analyst Name Role Phone Marciano Ortiz MD Primary Care Provider + [phone] Encounter Details Date Type Department Care Team (Late Contact Info) Description 08/14/2024 Orders Only [facility] [address] [place] [address] Ansley Jasso Stage 3 chronic kidney disease, unspecified whether stage 3a or 3b CKD (CMS/HCC) (Primary Dx); Vitamin D insufficiency Social History Tobacco Use Types Packs/Day Years Used Date Smoking Tobacco: Never Assessed Comments Unknown Sex and Gender Information Value Date Recorded Sex Assigned at Not on file Legal Sex Female 7:32 PM EDT Gender Identity Not on file Sexual Orientation Not on file documented as of this encounter Plan of Treatment Upcoming Encounters Date Type Department Care Team (Late Contact Info) Description 10/14/2024 1:00 PM EDT Office Visit [facility] Nephrology, Bone & Mineral Metabolism [address], [address] [place] [address] [place] MD [address] [place] [phone] Scheduled Orders Name Type Priority Associated Diagnoses Orde r Schedule Renal Function Panel, Plasma Lab Routine Stage 3 chronic kidney disease, unspecified whether stage 3a or 3b CKD (CMS/HCC) Expected: 08/14/2024 (Approximate), Expires: 02/13/2026 CBC and Differential Lab Routine Stage 3 chronic kidney disease, unspecified whether stage 3a or 3b CKD (CMS/HCC) Expected: 08/14/2024 (Approximate), Expires: 02/13/2026 Creatinine, Random, Urine Lab Routine Stage 3 chronic kidney disease, unspecified whether stage 3a or 3b CKD (CMS/HCC) Expected: 08/14/2024 (Approximate), Expires: 02/13/2026 Protein, Random, Urine with Creatinine Lab Routine Stage 3 chronic kidney disease, unspecified whether stage 3a or 3b CKD (CMS/HCC) Expected: 08/14/2024 (Approximate), Expires: 02/13/2026 PTH Intact Total Lab Routine Stage 3 chronic kidney disease, unspecified whether stage 3a or 3b CKD ([facility]/HCC) Vitamin D insufficiency Expected: 08/14/2024 (Approximate), Expires: 02/13/2026 Vitamin D 25 Hydroxy Lab Routine Stage 3 chronic kidney disease, unspecified whether stage 3a or 3b CKD ([facility]/HCC) Vitamin D insufficiency Expected: 08/14/2024 (Approximate), Expires: 02/13/2026 Urinalysis with reflex microscopic (Culture NOT Included) Lab Routine Stage 3 chronic kidney disease, unspecified whether stage 3a or 3b CKD (CMS/HCC) Expected: 08/14/2024 (Approximate), Expires: 02/13/2026 documented as of this encounter Visit Diagnoses Diagnosis Stage 3 chronic kidney disease, unspecified whether stage 3a or 3b CKD ([facility]/HCC)- Primary Vitamin D insufficiency documented in this encounter Care Teams Legislative Analyst Relationship Specialty Start Date End Date Marciano Ortiz MD [address] [place] [address] PCP - General 07/01/20 documented as of this encounter
--- OUTSIDE RECORDS SUMMARY | 2024-10-07 12:42 | XMS_ITS | Patient Health Record ---
Author Organization [facility] Address [address] [facility] [address] HARISH Pedroza [id number] Care Team Providers Care Roll Grinder Name Role Phone [place] Primary Care Provider Latosha Huynh Unavailable [phone] Allergies Allergen (clinical drug ingredient) Drug/Non Drug [...] 1.1 Performing Lab: Notes/Report: Test performed by [facility], [employer] [address] [place] [address] , [address], [place] [address] Babak Giordano MD, Data Modeling Specialist CLIA: [id number] Sodium 136 135-145 mmol/L Potassium 5.1 3.5-5.3 [...] Interpretation:neg Performing Lab: Notes/Report: neg Result: neg P-Basic Metabolic Panel (BMP ) Reviewed date:07/15/2024 06:06:22 PM Interpretation: Performing Lab: Notes/Report: Test performed by [facility], [address] , [address], [place] [address] Babak Giordano MD, Data Modeling Specialist CLIA: [id number] Sodium 135 135-145 mmol/L Potassium 5.9 3.5-5.3 mmol/L Chloride 96 97-108 mmol/L CO2 29 22-32 mmol/L Glucose 179 65-99 mg/dL BUN 46 8-23 mg/dL Creatinine 1.63 0.50-1.00 mg/dL Calcium 9.5 8.6-10.4 mg/dL eGFR by Creatinine 34 >59 mL/min/1.73m2 CBC Venipuncture (in house) Reviewed date:08/06/2024 02:19:27 [...] Interpretation:1970 Performing Lab: Notes/Report: Test performed by [facility] [address] [place] [address] , [place] [address] Babak Giordano MD, Data Modeling Specialist CLIA: [id number] Vitamin B12 9110 701-7423 pg/mL P-Comprehensive Metabolic Pa abhinav (CMP) Reviewed date:08/06/2024 02:19:27 PM Interpretation:Chl 95, Glu 148, BUN 27, Creat 1.31, eGFR 44, A/G 1.1 Performing Lab: Notes/Report: Test performed by [facility] [address] [place] [address] , [place] [address] Babak Giordano MD, Data Modeling Specialist CLIA: [id number] Sodium 135 135-145 mmol/L Potassium 4.3 3.5-5.3 [...] Interpretation:Normal Performing Lab: Notes/Report: Test performed by [facility] [address] [place] [address] [place] [address] Babak Giordano MD, Data Modeling Specialist CLIA: [id number] Ferritin 159.0 13.0-301.0 ng/mL P-Iron Reviewed date:08/06/2024 02:19:27 PM Interpretation:Normal Performing Lab: Notes/Report: Test performed by [facility] [address] [place] [address] , [address], [place] [address] Babak Giordano MD, Data Modeling Specialist CLIA: [id number] Iron 43 37-145 ug/dL P-Microalbumin/Creatinine, R andom Urine Sample Reviewed date:08/06/2024 02:19:27 PM Interpretation:Normal Performing Lab: Notes/Report: Test performed by [facility] [address] [place] [address] , [address], [place] [address] Babak Giordano MD, Data Modeling Specialist CLIA: [id number] Albumin/Creatinine Ratio, Urine 18 0-30 ug/mg Microalbumin, Urine, Random 1.2 Creatinine, Urine 67.5 Mammogram Reviewed date:08/19/2024 12:56:46 PM Interpretation: Performing Lab: Notes/Report: H-BMP Reviewed date:12/17/2023 11:14:36 AM Interpretation: Performing Lab: Notes/Report: NA 140 136-145 mmol/L K 3.6 3.5-5.1 mmoL/L CL 95 98-107 mmol/L CO2 37 22.0-30.0 mmol/L GAP 11.6 5-15 mEq/L BUN 20 7-17 mg/dl CREATT 1.30 0.52-1.04 mg/dl CRCLE 32 50-200 mL/min GFRAA 49 >60 ML/MIN EGFR 41 >60 ml/min GLU 112 74-100 mg/dl CA 8.1 8.4-10.2 mg/dl CBC Fingerstick (in house) Reviewed date:02/20/2024 01:19:12 [...] Interpretation:7 Performing Lab: Notes/Report: Test performed by [facility] , [facility] [place] [address] Babak Giordano MD, Data Modeling Specialist CLIA: [id number] TSH 7.00 0.43-5.25 mU/L P-Phosphorus Reviewed date:01/23/2024 04:16:22 PM Interpretation:Normal Performing Lab: Notes/Report: Test performed by [facility] , [facility] [place] [address] Babak Giordano MD, Data Modeling Specialist CLIA: [id number] Phosphorus 3.6 2.5-4.5 mg/dL P-Magnesium Reviewed date:01/23/2024 04:16:22 PM Interpretation:Normal Performing Lab: Notes/Report: Test performed by [facility] , [facility] [place] [address] Babak Giordano MD, Data Modeling Specialist CLIA: [id number] Magnesium 2.0 1.6-2.4 mg/dL P-T4 Free (thyroxine) Reviewed date:01/23/2024 04:16:22 PM Interpretation:Normal Performing Lab: Notes/Report: Test performed by [facility] [address] , [place] [address] Babak Giordano MD, Data Modeling Specialist CLIA: [id number] Thyroxine Free (free T4) 1.20 0.86-1.76 ng/dL P-Basic Metabolic Panel (BMP ) Reviewed date:01/23/2024 04:16:22 PM Interpretation:chlor 96, glus 158, bun 29, Cr 1.4, gfr 41 Performing Lab: Notes/Report: Test performed by [facility] [address] , [facility] [place] [address] Babak Giordano MD, Data Modeling Specialist CLIA: [id number] Sodium 138 135-145 mmol/L Potassium 3.9 3.5-5.3 [...] Interpretation:Normal Performing Lab: Notes/Report: Test performed by [facility] [address] [place] [address] , [address], [place] [address] Babak Giordano MD, Data Modeling Specialist CLIA: [id number] Magnesium 1.9 1.6-2.4 mg/dL P-Comprehensive Metabolic Pa abhinav (CMP) Reviewed date:12/26/2023 09:27:05 AM Interpretation:Co2 33, creat 1.35, gfr 43, a/g 1.0 Performing Lab: Notes/Report: Test performed by [facility] [address] [place] [address] , [address], [place] [address] Babak Giordano MD, Data Modeling Specialist CLIA: [id number] Sodium 140 135-145 mmol/L Potassium 3.5 3.5-5.3 [...] - 38 platlet 195 100 - 400 H-COVIDPANEL Reviewed date:12/13/2023 02:42:13 PM Interpretation:Negative Performing Lab: Notes/Report: No Is this the 1st COVID test for the patient? Unknown Does the patient have COVID symptoms? Unknown Is the patient employed in healthcare? Unknown Is patient an [facility] employee? N Is patient currently hospitalized? Yes Is patient currently in ICU? Yes Date of Symptom onset Is patient a resident in a congregate care setting? No ADENOQIA Not Detected NotDetected CORONAHKU1 Not Detected NotDetected [id number] Not Detected NotDetected [id number] Not Detected NotDetected EDIWLIB39 Not Detected NotDetected METAPNEUMO Not Detected NotDetected RHINOENTER Not Detected NotDetected INFLUAPCR Not Detected NotDetected FLUAH1 Not Detected NotDetected [id number] Not Detected NotDetected INFLUAH3 Not Detected NotDetected [...] WBC 5.0 4.8-10.8 K/mm3 Delta: 7.1 on 12/12/23-2024 RBC 3.52 4.20-5.40 M/mm3 HGB 9.5 12.2-16.2 [...] 0.0 0.0-0.4 K/mm3 BA# 0.0 0-0.2 K/mm3 H-CMP Reviewed date:12/16/2023 08:35:12 AM Interpretation: Performing Lab: Notes/Report: NA 138 136-145 mmol/L K 2.9 3.5-5.1 mmoL/L CRITICAL RESULT Results called and read back/verified to: BALA on 12/14/23 at 0711 By Marzena Burnette, FORM GRADER OPERATOR CL 97 98-107 mmol/L CO2 33 22.0-30.0 [...] ALB 3.4 3.5-5.0 g/dl Delta: 3.8 on 12/12/23 GLOB 3.0 1.3-3.2 g/dL AGRATIO 1.1 1.1-1.8 ALP 99 38-126 U/L H-CBC Reviewed date:12/16/2023 08:35:12 AM Interpretation: Performing Lab: Notes/Report: WBC 6.6 4.8-10.8 K/mm3 Delta: 5.0 on 12/14/23 RBC 3.53 4.20-5.40 M/mm3 HGB 9.5 12.2-16.2 [...] HAILEE on 12/15/23 at 0721 By Marzena Burnette, FORM GRADER OPERATOR CL 98 98-107 mmol/L CO2 34 22.0-30.0 mmol/L GAP 7.6 5-15 mEq/L BUN 17 7-17 mg/dl CREATT 1.30 0.52-1.04 mg/dl CRCLE 32 50-200 mL/min GFRAA 49 >60 ML/MIN EGFR 41 >60 ml/min GLU 154 74-100 mg/dl Delta: 122 on 12/14/23-0557 CA 7.9 8.4-10.2 mg/dl H-CBC Reviewed date:12/16/2023 08:35:12 AM Interpretation: Performing [...] K 3.2 3.5-5.1 mmoL/L Delta: 2.6 on 12/15/23 CL 96 98-107 mmol/L CO2 37 22.0-30.0 mmol/L GAP 8.2 5-15 mEq/L BUN 19 7-17 mg/dl CREATT 1.40 0.52-1.04 mg/dl CRCLE 29 50-200 mL/min GFRAA 45 >60 ML/MIN EGFR 38 >60 ml/min GLU 159 74-100 mg/dl CA 7.8 8.4-10.2 mg/dl H-CBC Reviewed date:12/17/2023 11:14:36 AM [...] 0.0 0.0-0.4 K/mm3 BA# 0.0 0-0.2 K/mm3 B-Type Natriuretic Peptide Reviewed date:05/01/2024 12:31:40 PM Interpretation: Performing Lab: Notes/Report: Test performed by [facility] , [address], [place] [address] Babak Giordano MD, Data Modeling Specialist CLIA: [id number] B-Type Natriuretic Peptide 532.0 <2.0-100.0 pg/ mL P-TSH reflex to FT4 Reviewed date:05/01/2024 12:31:40 PM Interpretation: Performing Lab: Notes/Report: Test performed by [facility] [address] [place] [address] [address], [place] [address] Babak Giordano MD, Data Modeling Specialist CLIA: [id number] TSH reflex to FT4 1.02 0.43-5.25 mU/L P-Lipid Panel Reviewed date:05/01/2024 12:31:40 PM Interpretation: Performing Lab: Notes/Report: Test performed by [facility] [address] [place] [address] , [place] [address] Babak Giordano MD, Data Modeling Specialist CLIA: [id number] Cholesterol 167 <200 mg/dL Triglycerides 208 <150 [...] Results: 77 Units: mg/dL % Change: +50% P-Comprehensive Metabolic Pa abhinav (CMP) Reviewed date:05/01/2024 12:31:40 PM Interpretation: Performing Lab: Notes/Report: Test performed by [facility] [address] [place] [address] , [address], [place] [address] Babak Giordano MD, Data Modeling Specialist CLIA: [id number] Sodium 128 135-145 mmol/L Potassium 4.4 3.5-5.3 [...] 0.5 <0.2-1.2 mg/dL A/G Ratio 1.0 1.1-2.5 P-BNP (Brain Natriuretic Pep tide) Reviewed date:05/24/2024 09:04:43 PM Interpretation: Performing Lab: Notes/Report: Glycohemoglobin A1c (in hous e) Reviewed date:05/01/2024 12:31:40 PM Interpretation: Performing Lab: Notes/Report: glycohemoglobin 7.4% 5 - 6.5 % CBC Venipuncture (in house) Reviewed date:04/30/2024 04:24:39 [...] - 38 platlet 226 100 - 400 pro[facility]rain Natriuretic Peptide Reviewed date:11/28/2023 03:57:16 PM Interpretation:23232 Performing Lab: Notes/Report: Test performed by [facility] [address] [place] [address] [address] , [place] [address] Babak Giordano MD, Data Modeling Specialist CLIA: [id number] proBrain Natriuretic Peptide 54417 <300 pg/mL Please note the updated reference range values which are stratified by age. Positive >900 pg/mL Indeterminate 300-900 pg/mL Negative <300 pg/mL P-TSH reflex to FT4 Reviewed date:11/28/2023 03:57:16 PM Interpretation:18.40 Performing Lab: Notes/Report: Test performed by [facility] [address] [place] [address], [place] [address] Babak Giordano MD, Data Modeling Specialist CLIA: [id number] TSH reflex to FT4 18.40 0.43-5.25 mU/L P-Magnesium Reviewed date:11/28/2023 03:57:16 PM Interpretation:Normal Performing Lab: Notes/Report: Test performed by [facility] [address] [place] [address] , [address], [place] [address] Babak Giordano MD, Data Modeling Specialist CLIA: [id number] Magnesium 1.7 1.6-2.4 mg/dL P-T4 Free (thyroxine) Reviewed date:11/28/2023 03:57:16 PM Interpretation:Normal Performing Lab: Notes/Report: Test performed by [facility] [address] , [address], [place] [address] Babak Giordano MD, Data Modeling Specialist CLIA: [id number] Thyroxine Free (free T4) 1.16 0.86-1.76 ng/dL P-Comprehensive Metabolic Pa abhinav (CMP) Reviewed date:11/28/2023 03:57:16 PM Interpretation:Cl 96, gluc 111, creat 1.33, gfr 44 Performing Lab: Notes/Report: Test performed by [facility] [address] , [address], [place] [address] Babak Giordano MD, Data Modeling Specialist CLIA: [id number] Sodium 137 135-145 mmol/L Potassium 3.8 3.5-5.3 [...] 0.8 <0.2-1.2 mg/dL A/G Ratio 1.2 1.1-2.5 CBC Venipuncture (in house) Reviewed date:11/27/2023 03:13:19 [...] - 38 platlet 169 100 - 400 Reason For Referral Reason Would like for them to see patient sometime in the next 2 or 3 weeks if possible Diagnosis 1 Anemia, unspecified type (D64.9) Diagnosis 2 Gastrointestinal hem orrhage, unspecified gastrointestinal hemorrhage type (K92.2) Diagnosis 3 Hepatic cirrhosis, u nspecified hepatic cirrhosis type, unspecified whether ascites present (K74.60) [facility] Referring Provider First Name Marciano Referring Provider Last Name Diana Referring Provider Speciality [facility] ashutosh Referred Provider LISETH MARCELO Referred Provider Specialty Gastroentero logy General Notes Adeal Chiu 11/27/19 24 1:38:33 PM > faxed to Dr. Marcelo office Referral Priority Routine Diagnosis 1 Dyspepsia (R10.13) [facility] Referring Provider First Name Latosha Referring Provider Last Name Lino Referring Provider Speciality Physician Supervisor [employer] Referred Provider Specialty Gastroentero logy General Notes Latosha Huynh 01/2025 02:28:47 PM > Pt needs to see Apple Bolton Brynn 07/30/2024 03:35:09 PM > faxed to Dr. Marcelo office Referral Priority Routine Reason nephrology at [facility] Diagnosis 1 Abnormal kidney func tion (N28.9) [facility] Referring Provider First Name Latosha Referring Provider Last Name Lino Referring Provider Speciality Physician Supervisor Maintenance [employer] Custodians Referred Provider Specialty Nephrology General Notes Adela Chiu 2024 01:11:50 PM > lvm with nephrology to call back with fax number to send referralApple Brynn 08/10/2024 08:56:34 AM > faxed to Dr. Leigh's office; fax failed; spoke to Mariana in clinic; was told to fax to Referral Priority Routine Medications Medication SIG (Take, Route, Frequency, Duration) Notes Start Date End Date Status Spironolactone 50 mg TAKE ONE TABLET BY MOUTH EVERY DAY; Duration: 90 Active Jardiance 10 mg TAKE ONE TABLET BY M OUTH EVERY DAY; Duration: 90 Active Furosemide 40 MG 1/2 tab Orally Once a day; Duration: 90 days Active Xarelto 15 MG 1 tablet with food O rally once a day; Duration: 90 days Active Acetaminophen 325 MG 2 tablet as needed Orally every 6 hrs as needed Active FreeStyle Margaret 3 Plus Sensor - change every 15 days; Duration: 90 days Active Ondansetron HCl 4 MG 1 tablet Orally tid prn Active Rosuvastatin Calcium 10 mg TAKE ONE [...] ON AN EMPTY STOMACH; Duration: 90 Active Ozempic (0.25 or 0.5 MG/DOSE) 2 MG/3ML 0.5 mg Subcutaneous once weekly; Duration: 30 days Active Loratadine 10 MG 1 tablet Orally Once a day; Duration: 90 days 01/31/2023 Active Montelukast Sodium 10 mg TAKE ONE TABLET BY MOUTH EVERY DAY; Duration: 90 Active Wheelchair - as directed 04/18/2023 Acti [...] tablet Orally On a day 11/27/2023 Active Advair Diskus 250-50 MCG/ACT 1 inh [...] Problem Type II diabetes mellitus without complication (434796440) Type 2 diabetes mellitus without complications (E11.9) Active confirmed Problem Essential hypertension (98746692) Essential (primary) hypertension (I10) Active confirmed Problem Hyperlipidemia (04515731) Hyperlipidemia (E78.5) Active confirmed Problem Atrial fibrillation (90799014) Atrial fibrillation (I48.91) Active confirmed Problem Vitamin D deficiency (41203914) Vitamin D deficiency (E55.9) Active confirmed Problem Essential hypertension (27898134) Essential hypertension (I10) Active confirmed Problem Hypoglycemic state i n diabetes (421667473) Hypoglycemia associated with diabetes (E11.649) Active confirmed Problem Hypokalemia (58031709) History of hypokalemia (Z86.39) Active confirmed Problem Mixed anxiety and depressive disorder (860887122) Depression with anxiety (F41.8) Active confirmed Problem Sciatica (74436652) Lumbago with sciatica, right side (M54.41) Active confirmed Problem Morbid obesity (disorder) (142204518) Morbid (severe) obesity due to excess calories (E66.01) Active confirmed Problem Congestive heart failure (88764375) CHF (congestive heart failure) (I50.9) Active confirmed Problem Increased blood leukocyte number (984635951) Other elevated white blood cell count (D72.828) Active confirmed Problem Mixed hyperlipidemia (263320654) Mixed hyperlipidemia (E78.2) Active confirmed Problem Hypomagnesemia (231304599) Hypomagnesemia (E83.42) Active confirmed Problem Irritable bowel syndrome with diarrhea (367401980) Irritable bowel syndrome with diarrhea (K58.0) Active confirmed Problem Portal hypertension (38713342) Portal hypertension (K76.6) Active confirmed Problem Overflow incontinenc e of urine (590427000) Overflow incontinence (N39.490) Active confirmed Problem Ascites (793414751) Other ascites (R18.8) Active confirmed Problem Depressive disorder (16014075) Depressive disorder (F32.9) Active confirmed Problem Chronic pain (74848373) Other chronic pain (G89.29) Active confirmed Problem Long-term current us e of insulin (167501484) MCC (current) use of insulin (Z79.4) Active confirmed Problem Acquired hypothyroidism (336238521) Acquired hypothyroidism (E03.9) Active confirmed Problem Obesity (615330920) Non morbid o besity due to excess calories (E66.09) Active confirmed Problem Hypothyroidism (36662822) Hypothyroidism (E03.9) Active confirmed Problem COPD - Chronic obstructive pulmonary disease (80916236) Chronic obstructive pulmonary disease, unspecified COPD type (J44.9) Active confirmed Problem Allergic rhinitis (74833124) Allergic rhinitis (J30.9) Active confirmed Problem Asthma without statu s asthmaticus (02748013) Uncomplicated asthma, unspecified asthma severity (J45.909) Active confirmed Problem Leukocytosis (866329787) Leukocytosis, unspecified type (D72.829) Active confirmed Problem Anemia (658129527) Anemia, unspe cified type (D64.9) Active confirmed Problem Osteoarthritis of knee (158820521) Primary osteoarthritis of both knees (M17.0) Active confirmed Problem Atrial fibrillation (11366579) Atrial fibrillation, unspecified type (I48.91) Active confirmed Problem Body mass index 40+ - morbidly obese (705844808) BMI 40.0-44.9, adult (Z68.41) Active confirmed Problem Dysphagia (54369751) Dysphagia, unspecified type (R13.10) Active confirmed Problem Atrial fibrillation (44863479) Atrial fibrillation with RVR (I48.91) Active confirmed Problem Heart failure (39826575) Congestive heart failure, unspecified congestive heart failure chronicity, unspecified congestive heart failure type (I50.9) Active confirmed Problem Sciatica (44043415) Acute left-s ided low back pain with left-sided sciatica (M54.42) Active confirmed Problem Type II diabetes mellitus without complication (184932079) Type 2 diabetes mellitus without complication, without long-term current use of insulin (E11.9) Active confirmed Problem Leukocytosis (815252720) Leukocytosis, unspecified (D72.829) Active confirmed Problem Obese class II (371464226485628) BMI 39.0-39.9,adult (Z68.39) Active confirmed Problem Automatic implantabl e cardiac defibrillator in situ (339955128) 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) Active confirmed Problem Pure hypercholesterolemia (417123003) Pure hypercholesterolemia (E78.00) Active confirmed Problem Cardiomyopathy (26567615) Cardiomyopathy, unspecified type (I42.9) Active confirmed Problem Blood chemistry abnormal (916987783) Elevated lactic acid level (R79.89) Active confirmed Problem Allergic rhinitis (30389455) Chronic allergic rhinitis, unspecified seasonality, unspecified trigger (J30.9) Active confirmed Problem Seasonal allergic rhinitis (980871712) Seasonal allergic rhinitis, unspecified trigger (J30.2) Active confirmed Problem Allergic rhinitis (24096930) Allergic rhinitis, unspecified seasonality, unspecified trigger (J30.9) Active confirmed Problem Essential hypertension (99076241) Hypertension, unspecified type (I10) Active confirmed Problem Heart failure (74861531) Congestive heart failure, unspecified HF chronicity, unspecified heart failure type (I50.9) Active confirmed Problem Cirrhosis - non-alcoholic (001197863) Hepatic cirrhosis, unspecified hepatic cirrhosis type, unspecified whether ascites present (K74.60) Active confirmed Problem Flexural atopic dermatitis (859787788) Flexural atopic dermatitis (L20.89) Active confirmed Problem Type 2 diabetes mellitus with other specified complication, unspecified whether chcf insulin use (E11.69) Active confirmed Problem Systolic heart failure (246054039) HFrEF (heart failure with reduced ejection fraction) (I50.20) Active confirmed Vital Signs Heart Rate 70 /min 07/30/2024 Blood pressure diastolic 60 mm Hg 07/30/2024 Height 62 in 07/30/2024 Blood pressure systolic 100 mm Hg 07/30/2024 Weight 223 lbs 07/30/2024 BMI 40.78 kg/m2 07/30/2024 Encounters Encounter Location Date Provider Diagnosis [facility] [place] [address] [place], [place] [id number] 10/24/2023 Marciano [place] [facility] [address] [place], [place] [id number] 11/28/2023 Marciano [place] [facility] [address] [place], [place] [id number] 12/09/2023 Marciano [place] [facility] [address] [place] [id number] 12/20/2023 Marciano [place] [facility] [address] [place] [id number] 12/20/2023 Marciano [place] [facility] [address] [place] [id number] 12/23/2023 Marciano [place] [facility] [address] [place] [id number] 12/24/2023 Marciano [place] [facility] [address] [place] [id number] 12/26/2023 Marciano [place] [facility] [address] [place] [id number] 01/01/2024 Marciano [place] [facility] [address] [place] [id number] 01/07/2024 Marciano [place] Congestive heart tracy lure, unspecified congestive heart failure chronicity, unspecified congestive heart failure type I50.9 [facility] [address] [place] [id number] 01/23/2024 Marciano [place] [facility] [address] [place] [id number] 02/04/2024 Marciano [place] [facility] [address] [place] [id number] 02/04/2024 Marciano [place] [facility] [address] [place] [id number] 02/06/2024 Marciano [place] [facility] [address] [place] [id number] 04/23/2024 Marciano [place] Type 2 diabetes zulay itus without complication, without long-term current use of insulin E11.9 [facility] [address] [place], [place] [id number] 05/01/2024 Latosha Crowdy [facility] [address] [place] [id number] 05/03/2024 Latosha Crowdy [facility] [address] [place] [id number] 05/22/2024 Latosha Crowdy Acute URI J06.9 [facility] [address] [place] [id number] 06/03/2024 Latosha Crowdy [facility] [address] [place] [id number] 07/03/2024 Latosha Crowdy [facility] [address] [place] [id number] 07/15/2024 Latosha Crowdy [facility] [address] [place] [id number] 08/06/2024 Latosha Crowdy [facility] [address] [place] [id number] 11/27/2023 Marciano [place] Gastrointestinal hemorrhage, unspecified gastrointestinal hemorrhage type K92.2 ; Anemia, unspecified type D64.9 ; Peripheral edema R60.0 ; Renal insufficiency N28.9 ; Hypokalemia E87.6 ; Hypomagnesemia E83.42 ; Hepatic cirrhosis, unspecified hepatic cirrhosis type, unspecified whether ascites present K74.60 and SOB (shortness of breath) R06.02 [facility] [address] [place] [id number] 12/25/2023 Marciano [place] Type 2 diabetes zulay itus without complication, without long-term current use of insulin E11.9 ; Congestive heart failure, unspecified congestive heart failure chronicity, unspecified congestive heart failure type I50.9 ; Renal insufficiency N28.9 ; Anemia, unspecified type D64.9 ; Hypomagnesemia E83.42 and Presence of combination internal cardiac defibrillator (ICD) and pacemaker Z95.810 [facility] [address] [place], [place] [id number] 01/22/2024 Marciano [place] Acquired hypothyroid ism E03.9 ; Anemia, unspecified type D64.9 ; Renal insufficiency N28.9 ; Acute URI J06.9 and Hypomagnesemia E83.42 [facility] [address] [facility] [address] [address] [place], [place] [phone] 02/20/2024 Marciano [place] Acute URI J06.9 ; Ty pe 2 diabetes mellitus without complication, without long-term current use of insulin E11.9 ; Congestive heart failure, unspecified congestive heart failure chronicity, unspecified congestive heart failure type I50.9 ; Essential hypertension I10 ; Chronic obstructive pulmonary disease, unspecified COPD type J44.9 and Chronic allergic rhinitis, unspecified seasonality, unspecified trigger J30.9 [facility] [address] [place], [place] [phone] 04/30/2024 Latoshasridhar Huynh Type 2 diabetes zulay itus without complication, without long-term current use of insulin E11.9 ; Congestive heart failure, unspecified congestive heart failure chronicity, unspecified congestive heart failure type I50.9 ; Essential hypertension I10 ; Chronic obstructive pulmonary disease, unspecified COPD type J44.9 ; Chronic allergic rhinitis, unspecified seasonality, unspecified trigger J30.9 ; Hyperlipidemia E78.5 and Encounter for immunization Z23 [facility] [place] [address] [place], [place] [phone] 05/22/2024 Latosha Lino Acute URI J06.9 ; Ty pe 2 diabetes mellitus without complication, without long-term current use of insulin E11.9 ; Hypertension, unspecified type I10 and Hypothyroidism E03.9 [facility] [place] [facility] [address] [place], [place] [phone] 07/02/2024 Latoshasridhar Huynh Renal insufficiency N28.9 [facility] 36 [facility] [place], [place] [id number] 07/30/2024 Latosha Lino Adult general medica l examination Z00.00 ; [...] mellitus with other specified complication, unspecified whether chcf insulin use E11.69 ; Morbid (severe) obesity [...] of her insulin and is going to roll picker her Ozempic today. Will titrate dose [...] R60.0) 12/25/2023 Renal insufficiency (ICD-10 - N28.9) 12/25/2023 Anemia, unspecified type (ICD-10 - D64.9) 11/27/2023 Renal insufficiency (ICD-10 - N28.9) 02/20/2024 Essential hypertension (ICD-10 - I10) 01/22/2024 [...] unspecified seasonality, unspecified trigger (ICD-10 - J30.9) 01/22/2024 Hypomagnesemia (ICD-10 - E83.42) 02/20/2024 Chronic obstructive pulmonary disease, unspecified COPD type (ICD-10 - J44.9) 12/25/2023 Hypomagnesemia (ICD-10 - E83.42) 11/27/2023 Hypokalemia (ICD-10 [...] mellitus with other specified complication, unspecified whether chcf insulin use (ICD-10 - E11.69) 07/30/2024 Morbid (severe) obesity due to excess calories (ICD-10 - E66.01) 07/30/2024 Portal hypertension (ICD-10 - K76.6) 07/30/2024 Cardiomyopathy, unspecified type (ICD-10 - I42.9) Plan Of Treatment Pending Test Test Name Order Date Stool Guaiac(Occult Blood) 05/30/2022 CBC 06/22/2020 Urinalysis 06/22/2020 H-BMP 11/09/2020 P-BNP (Brain Natriuretic Peptide) 2023 Insurance Providers Payer Name Payer Address Payer Phone Subscriber Number Group Number Insured Name Patient Relationship to Insured Coverage Start Date Coverage End Date REPLACED BY [facility] [employer] [address] [place] [address] [phone] [id number] CURRENT, ALINA Self - patient is the insured Medical (General) History Medical History History ICD Code Congestive Heart Failure, Dx: 2000 - Dr. 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 Escalante 03/2015 Rt Ovarian Cyst removed 11/2016 Esophageal dilation pacemaker-defibrillator 11/2023 Hospitalization History Reason Date(Month/Year) Ovarian Cyst Removal- [facility] 11/2016
[2024-10-07 12:45] LABS: Microscopic, Urine URINE MICROSCOPIC (MICROSCOPIC)
[2024-10-07 13:27] LABS: Hematocrit 38.9 % (37.0-47.0); Hemoglobin 12.4 g/dL (12.2-16.2); Immature Granulocytes % 0.5 %; Mean Corpuscular HGB Conc 31.9 g/dL (31.8-35.4); Mean Corpuscular Hemoglobin 31.2 pg (27.0-31.2); Mean Corpuscular Volume 98.0 fl (81-99); Nucleated Red Blood Cells % 0 %; Platelet Count 201 K/mm3 (142-424); Red Blood Count 3.97 M/mm3 (4.20-5.40); Red Cell Distribution Width-SD 51.3 fL; White Blood Count 9.6 K/mm3 (4.8-10.8)
--- OUTSIDE RECORDS SUMMARY | 2024-10-07 13:41 | XMS_ITS | CCD ---
Author Organization Unknown Care Team Providers Care Enterprise Applications Manager Name Role Phone Non Engaged, [facility] Primary Care Provider Unav ailable Unavailable Chronic Care Management Unavaila ble Summary Purpose DataExchange Insurance Providers Payer name Policy type / Coverage type Covered republican ID Effective Begin Date Effective End Date [facility] [id number] Unknown Unknown Family History Family History data not found Medication Administered No Medication Administered data Reason For Visit No Reason For Visit data Medical Equipment No Medical Equipment data Advance Directives No Advance Directive data
[2024-10-07 13:53] LABS: Bilirubin,Urine Negative (Negative); Color,Urine YELLOW (Yellow); Glucose,Urine (UA) 3+ (Negative); Ketones,Urine Negative (Negative); Leukocyte Esterase,Urine TRACE (Negative); PH,Urine 6.0 (5.0-8.5); Protein,Urine Negative (Negative); Specific Gravity, Urine 1.010 (1.005-1.030); Urobilinogen,Urine 0.2 EU/dl (0.2)
[2024-10-07 14:05] LABS: Albumin Level 3.7 g/dl (3.5-5.0); Anion Gap 15.5 mEq/L (5-15); Blood Urea Nitrogen 32 mg/dl (7-17); Calcium 8.5 mg/dl (8.4-10.2); Carbon Dioxide 27 mmol/L (22.0-30.0); Chloride 98 mmol/L (98-107); Creatinine,Serum 1.40 mg/dl (0.52-1.04); Estimated Glomerular Filt Rate 38 ml/min (>60); GFR (African American) 45 ML/MIN (>60); Glucose 232 mg/dl (74-100); Phosphorous 3.1 mg/dl (2.5-4.5); Potassium 4.5 mmoL/L (3.5-5.1); Sodium 136 mmol/L (136-145)
[2024-10-07 14:24] LABS: 25-OH Vitamin D, Total 54.9 ng/mL (30-100)
[2024-10-07 14:41] LABS: Bacteria,Urine Trace /lpf; Squamous Epithelial Cell,Urine Occasional #/hpf (0-5)
== END 2024-10-07 23:59 | disposition home or self-care (01) ==
LOC: LAB 12:40
PROVIDERS: Student in an Organized Health Care Education/Training Program; PCP Family Medicine; Visit Provider Internal Medicine Pulmonary Disease
DX: N18.30 Chronic kidney disease, stage 3 unspecified (principal); E55.9 Vitamin D deficiency, unspecified
CPT/HCPCS: 36415; 80069; 81001; 82306; 82570; 83970; 84156; 85025

== ENCOUNTER 2024-11-11 10:56 | Day surgery (SDC) | payer MEDICARE, SELFPAY ==
--- NOTE | 2024-11-08 12:31 | EXP.HP ---
History of Present Illness *Admission Date: 11/11/24 *History of present illness: Mrs. Dunn is a 69-year-old female who is here for diagnostic EGD secondary to nausea, vomiting, heartburn and reflux. She also is having dysphagia and some odynophagia/painful swallowing. She was recently diagnosed with iron deficiency anemia. She was diagnosed with cirrhosis (at [facility]). She has been on Ozempic. She reports lots of bloating, belching, gassiness and left-sided abdominal discomfort over the last 6 to 9 months. The examination is deemed medically necessary for EGD. The patient has been seen, interviewed and examined prior to the procedure by both myself and the anesthesia provider. [facility] Disclaimer: The information contained in this section may have been updated after the patient was seen, as this information can be updated by other users. Medical History History of COVID-19 Anxiety Hemorrhoid History of pacemaker Dyspnea on exertion Asthma Acute on chronic HFrEF (heart failure with reduced ejection fraction) Hypoglycemia associated with type 2 diabetes mellitus Compression atelectasis Acute exacerbation of CHF (congestive heart failure) Ascites Anasarca Pleural effusion Cirrhosis Acute on chronic anemia Acute GI bleeding Post-tussive emesis A-fib Cough E. coli UTI Bacteremia due to Escherichia coli Hypovolemic shock BMI 39.0-39.9,adult Non morbid obesity Elevated brain natriuretic peptide (BNP) level Hyponatremia Esophageal stricture Chronic low back pain Asthma-COPD overlap syndrome Osteoarthritis of both knees Irritable bowel syndrome with diarrhea LORE (acute kidney injury) HFrEF (heart failure with reduced ejection fraction) Major depressive disorder Allergic rhinitis CHF (congestive heart failure) Atrial fibrillation Hypothyroid Hyperlipidemia HTN (hypertension) Personal history of MRSA (methicillin resistant Staphylococcus aureus) Surgical History History of cardiac defibrillator placement S/P dilatation of esophageal stricture History of cholecystectomy History of tubal ligation Family History Family/Other A-fib Emphysema lung Breast cancer Social History Smoking Status: Former smoker years smoked: 15 how long ago did patient quit smokin quit status: quit date established second hand exposure: No alcohol intake: former counseling given: No substance use type: denies use counseling given: No current occupational status: retired Travel in the last 8 weeks?: None adopted: No caregiver/support person: No foster care: No household members: family and none housing: house lives independently: Yes marital status: number of children: 3 number of grandchildren: 11 education level: high school current occupational exposures/hazards: No caffeine: Yes physical activity: none working smoke detector in home: Yes fire extinguisher in home: No carbon monox detector in home: No firearms in home: No do you feel safe at home: Yes victim of physical abuse: No victim of emotional abuse: No victim of sexual abuse: No would you like helpful sources: No Have you lived/traveled outside US in past 30 days?: No Contact w/someone who lives/traveled outside US past 30 days?: No Exposure to someone with infectious disease in past 14 days?: No Do you have a fever (greater than 100.4 F or 38 C)?: No Have you tested positive for COVID-19?: No Exposed to someone with COVID-19 in past 14 days?: No Do you have a sore throat?: No Do you have a cough?: No Do you have any weakness?: No Are you experiencing any nausea/vomitting?: No Do you have any diarrhea?: No Are you experiencing any unusual bleeding?: No Do you have any muscle aches/pain?: No Do you have any abdominal pain?: No Are you experiencing loss of taste or smell?: No Other Medical History Have you received the Flu Vaccine for this season: No Have you received the Pneumonia Vaccine: Yes Review of Systems Review of Systems Review of systems (narrative): Negative *Cardiovascular Comments: Negative *Gastrointestinal Comments: Negative *Genitourinary Comments: Negative *Musculoskeletal Comments: Negative *Neurologic Comments: Negative Meds Home Medications and Allergies Home Medications ?Medication ?Instructions ?Recorded ?Confirmed ?Type montelukast 10 mg tablet 10 mg PO PM 12/27/17 11/11/24 History fluticasone 250 mcg-salmeterol 50 1 inh inhalation BID 12/04/18 11/11/24 History mcg/dose blistr powdr for inhalation multivitamin 1 tab PO DAILY 04/28/20 11/11/24 History rosuvastatin 10 mg tablet 10 mg PO HS 01/20/23 11/11/24 History albuterol sulfate 90 mcg/actuation 2 puff inhalation QIDP PRN 11/15/23 11/11/24 History aerosol inhaler Shortness Of Breath levothyroxine 137 mcg tablet 137 mcg PO DAILY 11/15/23 11/11/24 History rivaroxaban 15 mg tablet (Xarelto) 15 mg PO QPMWITHMEAL 12/13/23 11/11/24 History empagliflozin 10 mg tablet 10 mg PO DAILY #30 tabs 12/18/23 11/11/24 Rx (Jardiance) blood-glucose sensor (FreeStyle #1 ea 12/31/23 11/11/24 History Margaret 3 Plus Sensor device) blood-glucose,finance officer,cont #1 ea 12/31/23 11/11/24 History (FreeStyle Margaret 3 [place]) albuterol sulfate 2.5 mg/3 mL 2.5 mg inhalation Q6H PRN . 04/28/24 11/11/24 History (0.083 %) solution for nebulization ferrous sulfate 325 mg (65 mg 325 mg PO DAILY 04/28/24 11/11/24 History iron) tablet (FeroSul) mecobalamin (vitamin B12) 5,000 0 mcg PO DAILY 04/28/24 11/11/24 History mcg disintegrating tablet spironolactone 50 mg tablet 50 mg PO DAILY 04/28/24 11/11/24 History insulin degludec 200 unit/mL (3 60 unit SQ ONCE 05/05/24 11/11/24 History mL) subcutaneous pen (Tresiba FlexTouch U-200 insulin) metoprolol succinate 25 mg 25 mg PO BID #60 tabs 05/05/24 11/11/24 Rx tablet,extended release 24 hr semaglutide 0.25 mg or 0.5 mg (2 0.5 mg SQ QWEEK 05/05/24 11/11/24 History mg/3 mL) subcutaneous pen injector (Ozempic) dicyclomine 10 mg capsule 10 mg PO QID PRN . 10/12/24 11/11/24 History bumetanide 1 mg tablet 1 mg PO DAILY 10/23/24 11/11/24 History New Prescriptions to Start Prescriptions: Allergies Allergy/AdvReac Type Severity Reaction Status Date / Time naproxen (From ALEVE) Allergy Intermediate S-SWELLS-OR Verified 11/11/24 11:57 AL/THROAT oxytetracycline (From Allergy Intermediate disoriented Verified 11/11/24 11:57 TERRAMYCIN) tetracycline (TETRACYCLINE) Allergy Intermediate NA-SEDATION Verified 11/11/24 11:57 Exam *Routine HEENT Exam Head: Present normocephalic Eye: Present EOMI and PERRL ENT: Present mucous membranes moist *Routine Neck Exam Neck: Present supple *Routine Respiratory Exam Respiratory: Present CTA bilaterally *Routine Cardiovascular Exam Cardiovascular: Present RRR *Routine Abdominal Exam Abdominal: Present soft and normoactive bowel sounds; Absent tenderness *Routine Rectal Exam Rectal:: deferred *Routine Genitalia Exam Genitalia:: deferred *Routine Extremities Exam Extremities: Absent cyanosis, clubbing or edema *Routine Skin Exam Skin: Present warm; Absent rash *Routine Neurological Exam Neurological: Present alert and oriented X3 Assessment and Plan *Assessment and plan (1) Nausea & vomiting: Status: Acute Category: Medical Code(s): R11.2 - Nausea with vomiting, unspecified (2) Flatulence: Status: Acute Category: Medical Code(s): R14.3 - Flatulence (3) Belching: Status: Acute Category: Medical Code(s): R14.2 - Eructation (4) Bloating: Status: Acute Category: Medical Code(s): R14.0 - Abdominal distension (gaseous) (5) Functional dyspepsia: Status: Acute Category: Medical Code(s): K30 - Functional dyspepsia (6) Dysphagia: Status: Acute Category: Medical Code(s): R13.10 - Dysphagia, unspecified (7) Left sided abdominal pain: Status: Acute Category: Medical Code(s): R10.9 - Unspecified abdominal pain Plan A/P: 1. Nausea, vomiting, heartburn, reflux, belching and dysphagia is the preprocedural diagnosis. The patient has dyspepsia. The patient will be anesthetized/sedated using MAC sedation. The patient has been seen and examined. Cardiac and lung assessment prior to the examination is stable. Proceed with planned EGD.
--- NOTE | 2024-11-11 07:09 | HMH.PROCNOTE ---
[facility] Procedure Note Date: 11/11/24 Time: 12:54 Procedure Note:: Upper Endoscopy Procedure Report: Esophagogastroduodenoscopy with cold biopsies and TTS balloon dilation Endoscopost: Silas Marcelo II, MD Referring Physician: Marciano Ortiz MD Date of Procedure: November 11, 2024 Equipment: Olympus GIF-1100 standard upper endoscope Sedation: MAC sedation Indications: Mrs. Dunn is a 69-year-old female who is here for diagnostic EGD secondary to dyspepsia and dysphagia. She also is having dysphagia and some odynophagia/painful swallowing. She was recently diagnosed with iron deficiency anemia. She was diagnosed with cirrhosis (at [facility]). She has been on Ozempic. She reports lots of bloating, belching, gassiness and left-sided abdominal discomfort over the last 6 to 9 months. The patient did have an EGD with me in April 2020 and had esophageal parakeratosis with some desquamation. There was also some nodular gastropathy. The patient reports little heartburn. She reports regular bowel function. The examination is deemed medically necessary for EGD. Procedure: Prior to the procedure, a history and physical exam was performed, and patient's medications and allergies were reviewed. The risks, benefits and alternatives of the sedation and procedure were discussed with the patient. All questions were answered and informed consent was obtained. The patient was brought to the procedure room. Patient identification and proposed procedure were verified by the physician and the nurse. The patient was placed in a left lateral decubitus position and the scope was passed under direct vision. Throughout the procedure, the patient's blood pressure, pulse, and oxygen saturations were monitored continuously. The upper GI endoscopy was accomplished without difficulty. The patient tolerated the procedure well. Findings: The scope was passed directly into the upper esophagus and advanced to the third portion of the duodenum. The post bulbar duodenum, ampulla and duodenal bulb were normal with normal mucosa and conniventes. A cold biopsy was taken from the second portion of the duodenum for the disaccharidase assay. The scope was withdrawn through a normal duodenal bulb and pylorus into the stomach. There was bile reflux with mild antral gastropathy. There was also atrophy of the body and fundus with loss of rugal folds and mild nodularity. This was consistent with chronic atrophic gastritis and cold biopsies were taken from the fundus of the stomach. With NBI, there appeared to be some gastric intestinal metaplasia. Upon retroflexion there was no hiatal hernia. The scope was then withdrawn into the esophagus. There was a distal fibrotic ring. There was no evidence of reflux esophagitis or Ritter's. There were no esophageal varices. The distal esophageal ring was dilated from 18 to 20 mm with a TTS hydrostatic balloon with shattering of the ring. The original diameter was approximately 14 to 15 mm. There were tertiary contractions and evidence of moderate esophageal dysmotility. The remainder of the esophageal mucosa was normal. Impression: 1. Distal esophageal fibrotic ring dilated to 20 mm 2. Moderate esophageal dysmotility 3. Chronic atrophic gastritis Plan: I will follow-up the biopsies and disaccharidase assay. I would avoid PPI therapy because of the chronic atrophic gastritis. I will check biopsies to rule out H. pylori and intestinal metaplasia. I will send antiparietal cell antibody today. We will discuss treatment options for her dyspepsia.
[2024-11-11 11:43] VITALS: BP 103/68; PULSE 96; RESP 16; TEMP 36.1; O2SAT 98; BMI 43.0
[2024-11-11] MEDS: LACTATED RINGERS 1000ML 1,000 ML 50 ML IV (12:01)
[2024-11-11 12:13] LABS: POC Glucose,Bedside 135 gm/dL (70-110)
--- NOTE | 2024-11-11 12:34 | EXP.ANES.CKL ---
[facility] Disclaimer: The information contained in this section may have been updated after the patient was seen, as this information can be updated by other users. Medical History History of COVID-19 Anxiety Hemorrhoid History of pacemaker Dyspnea on exertion Asthma Acute on chronic HFrEF (heart failure with reduced ejection fraction) Hypoglycemia associated with type 2 diabetes mellitus Compression atelectasis Acute exacerbation of CHF (congestive heart failure) Ascites Anasarca Pleural effusion Cirrhosis Acute on chronic anemia Acute GI bleeding Post-tussive emesis A-fib Cough E. coli UTI Bacteremia due to Escherichia coli Hypovolemic shock BMI 39.0-39.9,adult Non morbid obesity Elevated brain natriuretic peptide (BNP) level Hyponatremia Esophageal stricture Chronic low back pain Asthma-COPD overlap syndrome Osteoarthritis of both knees Irritable bowel syndrome with diarrhea LORE (acute kidney injury) HFrEF (heart failure with reduced ejection fraction) Major depressive disorder Allergic rhinitis CHF (congestive heart failure) Atrial fibrillation Hypothyroid Hyperlipidemia HTN (hypertension) Personal history of MRSA (methicillin resistant Staphylococcus aureus) Surgical History History of cardiac defibrillator placement S/P dilatation of esophageal stricture History of cholecystectomy History of tubal ligation Family History Family/Other A-fib Emphysema lung Breast cancer Social History Smoking Status: Former smoker years smoked: 15 how long ago did patient quit smokin quit status: quit date established second hand exposure: No alcohol intake: former counseling given: No substance use type: denies use counseling given: No current occupational status: retired Travel in the last 8 weeks?: None adopted: No caregiver/support person: No foster care: No household members: family and none housing: house lives independently: Yes marital status: number of children: 3 number of grandchildren: 11 education level: high school current occupational exposures/hazards: No caffeine: Yes physical activity: none working smoke detector in home: Yes fire extinguisher in home: No carbon monox detector in home: No firearms in home: No do you feel safe at home: Yes victim of physical abuse: No victim of emotional abuse: No victim of sexual abuse: No would you like helpful sources: No Have you lived/traveled outside US in past 30 days?: No Contact w/someone who lives/traveled outside US past 30 days?: No Exposure to someone with infectious disease in past 14 days?: No Do you have a fever (greater than 100.4 F or 38 C)?: No Have you tested positive for COVID-19?: No Exposed to someone with COVID-19 in past 14 days?: No Do you have a sore throat?: No Do you have a cough?: No Do you have any weakness?: No Are you experiencing any nausea/vomitting?: No Do you have any diarrhea?: No Are you experiencing any unusual bleeding?: No Do you have any muscle aches/pain?: No Do you have any abdominal pain?: No Are you experiencing loss of taste or smell?: No [facility] Anesthesia Checklist Patient Identification Patient Identification: Arm Band and Verbal (Name & ) Structural Data Admitted From: Home Planned Operative Procedure/s: EGD Consent for Planned Operative Procedure(s) Verified: Yes Verified Documents: Surgical Consent and History and Physical NPO Status Verified Time NPO: 00:00 Additional verifications Anesthesia Reactions: No Hx Blood Transfusions: No Blood Transfusion Reaction: No Airway Assessment Mallampati Score:: Class II Dentition: Edentulous Neurological Assessment Level of Consciousness: Awake, Alert and Appropriate Hx Seizures: No Numbness or tingling in extremities: No Anesthesia Plan Anesthesia Risk discussed: Yes Anesthesia Plan: Verified ASA Class: III Anesthesia Type: MAC
[2024-11-11 12:54] VITALS: BP 134/87; PULSE 107; RESP 15; TEMP 36.1; O2SAT 97
[2024-11-11 13:04] VITALS: BP 112/75; PULSE 87; RESP 17; TEMP 36.1; O2SAT 96
[2024-11-11 13:14] VITALS: BP 109/74; PULSE 96; RESP 17; TEMP 36.1; O2SAT 97
[2024-11-11 13:24] VITALS: BP 115/69; PULSE 91; RESP 17; TEMP 36.1; O2SAT 97
[2024-11-11 15:23] LABS: Vitamin B12 > 1000 pg/mL (239-931)
[2024-11-11 16:56] LABS: Iron 49 ug/dL (37-170)
[2024-11-11 17:06] LABS: Total Iron Binding Capacity 279 ug/dL (265-497)
[2024-11-11 17:35] LABS: Ferritin 140 ng/ml (11.1-264)
[2024-11-14 14:11] LABS: Interpretation Notes (.); Lactase 40.9 (>/= 14.0); Maltase 290.82 (>/= 110.0); Palatinase 22.39 (>/= 8.5); Reference Notes (.); Sucrase 68.67 (>/= 25.0)
== END 2024-11-11 13:43 | disposition home or self-care (01) ==
PROVIDERS: PCP Family Medicine; Visit Provider Internal Medicine Gastroenterology
PROC: 0DJ08ZZ Inspection of Upper Intestinal Tract, Via Natural or Artificial Opening Endoscopic (ICD-10-PCS; CPT 43239; principal; 2024-11-11 12:30)
DX: K29.40 Chronic atrophic gastritis without bleeding (principal); K22.4 Dyskinesia of esophagus; K22.2 Esophageal obstruction; K30 Functional dyspepsia; E03.9 Hypothyroidism, unspecified; D50.9 Iron deficiency anemia, unspecified; K74.60 Unspecified cirrhosis of liver; E78.5 Hyperlipidemia, unspecified; I11.0 Hypertensive heart disease with heart failure; E11.649 Type 2 diabetes mellitus with hypoglycemia without coma; J45.909 Unspecified asthma, uncomplicated; I50.9 Heart failure, unspecified; I48.91 Unspecified atrial fibrillation; Z79.4 Long term (current) use of insulin; Z79.84 Long term (current) use of oral hypoglycemic drugs; Z79.85 Long-term (current) use of injectable non-insulin antidiabetic drugs; Z88.6 Allergy status to analgesic agent; Z88.1 Allergy status to other antibiotic agents; Z87.891 Personal history of nicotine dependence
CPT/HCPCS: 43239; 43249; 36415; 82607; 82657; 82728; 82962; 83516; 83540; 83550; C1726; J2003; J2371; J2704; J7120

== ENCOUNTER 2025-01-04 11:34 | Outpatient (CLI) | payer MEDICARE, SELFPAY ==
[2025-01-04 11:45] LABS: Microscopic, Urine URINE MICROSCOPIC (MICROSCOPIC)
[2025-01-04 12:22] LABS: Hematocrit 39.2 % (37.0-47.0); Hemoglobin 12.9 g/dL (12.2-16.2); Immature Granulocytes % 0.7 %; Mean Corpuscular HGB Conc 32.9 g/dL (31.8-35.4); Mean Corpuscular Hemoglobin 32.3 pg (27.0-31.2); Mean Corpuscular Volume 98.0 fl (81-99); Nucleated Red Blood Cells % 0.4 %; Platelet Count 326 K/mm3 (142-424); Red Blood Count 4.00 M/mm3 (4.20-5.40); Red Cell Distribution Width-SD 53.5 fL; White Blood Count 14.0 K/mm3 (4.8-10.8)
[2025-01-04 12:42] LABS: Bilirubin,Urine Negative (Negative); Color,Urine YELLOW (Yellow); Glucose,Urine (UA) 3+ (Negative); Ketones,Urine Negative (Negative); Leukocyte Esterase,Urine TRACE (Negative); PH,Urine 6.0 (5.0-8.5); Protein,Urine Negative (Negative); Specific Gravity, Urine 1.010 (1.005-1.030); Urobilinogen,Urine 0.2 EU/dl (0.2)
[2025-01-04 12:57] LABS: Bacteria,Urine Trace /lpf
[2025-01-04 13:35] LABS: Alanine Aminotransferase 14 U/L (12-78); Albumin Level 4.3 g/dl (3.5-5.0); Alkaline Phosphatase 118 U/L (38-126); Aspartate Amino Transferase 25 U/L (14-36); Bilirubin,Direct 0.3 mg/dl (0.0-0.4); Bilirubin,Indirect 0.5 mg/dL (0.0-0.9); Bilirubin,Total 0.8 mg/dl (0.2-1.3); Bilirubin,Unconjugated 0.5 mg/dL (0.0-1.1); Cholesterol 132 mg/dl (140-200); HDL Cholesterol 51 mg/dl (40-60); Magnesium 2.2 mg/dl (1.6-2.3); Total Protein,Serum 8.3 g/dl (6.3-8.2); Triglycerides 226 mg/dl (30-150)
[2025-01-04 13:37] LABS: Albumin Level 4.2 g/dl (3.5-5.0); Anion Gap 14.6 mEq/L (5-15); Blood Urea Nitrogen 24 mg/dl (7-17); Calcium 9.7 mg/dl (8.4-10.2); Carbon Dioxide 31 mmol/L (22.0-30.0); Chloride 91 mmol/L (98-107); Creatinine,Serum 1.50 mg/dl (0.52-1.04); Estimated Glomerular Filt Rate 35 ml/min (>60); GFR (African American) 42 ML/MIN (>60); Glucose 196 mg/dl (74-100); Phosphorous 4.5 mg/dl (2.5-4.5); Potassium 3.6 mmoL/L (3.5-5.1); Sodium 133 mmol/L (136-145)
[2025-01-04 13:54] LABS: Free T4 (Free Thyroxine) 1.49 ng/dl (0.78-2.19)
[2025-01-04 14:06] LABS: Thyroid Stimulating Hormone 1.22 uIU/mL (0.465-4.68)
== END 2025-01-04 23:59 | disposition home or self-care (01) ==
LOC: LAB 11:35
PROVIDERS: Physician Assistant; PCP Family Medicine; Visit Provider Student in an Organized Health Care Education/Training Program
DX: D64.9 Anemia, unspecified (principal); E78.5 Hyperlipidemia, unspecified; I48.91 Unspecified atrial fibrillation; E11.9 Type 2 diabetes mellitus without complications; I50.42 Chronic combined systolic (congestive) and diastolic (congestive) heart failure; N18.31 Chronic kidney disease, stage 3a
CPT/HCPCS: 80061; 80069; 80076; 81001; 82043; 82570; 83735; 84156; 84439; 84443; 85025